=== PATIENT | female | born 1945 | race Caucasian/White ===

== ENCOUNTER → 2019-11-07 07:56 | Outpatient (CLI) | payer MEDICARE, SELFPAY ==
--- NOTE | ~2019-11-07 | US_ITS ---
EXAMINATION: US abdomen complete EXAM DATE: 11/07/2019 08:32 INDICATION: Abdominal aortic aneurysm without rupture. TECHNIQUE: Multiple grayscale and Doppler images of the complete abdomen were obtained (by a technolo balta who performed the scan) and subsequently reviewed. There is no prior study for comparison. FINDINGS: The mid to distal aspect of the abdominal aorta measures 3.7 by 3.7 cm in diameter, decreases in eleno maksim to 2.3 cm before the bifurcation. Visualized portion IVC is patent. The pancreatic head and sravan dy are normal in appearance. The pancreatic tail is not visualized. The liver has normal echogenicity and contour. There are no focal liver lesions identified. There is no evidence of intrahepatic biliary duct dilation. Portal venous flow was seen in the hepatopedal , normal direction and has normal Doppler waveform. Common bile duct measures 9 mm, which is mildly dilated but common finding post cholecystectomy. The gallbladder fossa is unremarkable. Right kidney: There is normal contour and echogenicity. It measures 9.2 x 4.2 x 4.9 centimeters. Th ere is a 1 cm cyst. There is no hydronephrosis. Left kidney: There is normal contour and echogenicity. It measures 9.2 x 4.0 x 4.2 centimeters. The re is a 1 cm cyst. There is no hydronephrosis. Scattered splenic granulomas. Spleen is normal in size at 7.9 cm. IMPRESSION: 1. Mid to distal abdominal aortic 3.7 cm aneurysm. Reviewed, dictated and finalized at location A.
== END ==
PROVIDERS: PCP Physician Assistant; Visit Provider Physician Assistant
DX: I71.4 Abdominal aortic aneurysm, without rupture (principal)
CPT/HCPCS: 76700

== ENCOUNTER 2020-01-29 07:57 | Outpatient (CLI) | payer MEDICARE, BC, SELFPAY ==
--- NOTE | ~2020-01-29 | XR_ITS ---
EXAMINATION: XR small bowel follow through DATE: 01/29/2020 09:26 INDICATION: Inflammatory bowel disease with excessive diarrhea TECHNIQUE: Hand Nailer radiograph(s) of the abdomen was/were obtained. Oral contrast was administered, and sequential radiographs of the abdomen were obtained until oral contrast was noted to be in the proxi mal colon. Spot fluoroscopic images of the small bowel were obtained. Fluoroscopy exposure time was 0 .3 minutes. A total of 6 fluoroscopic images and 5 overhead radiographs were obtained. COMPARISON: 10/09/[address] dated 10/07/2018 FINDINGS: Small bowel anastomotic suture line evident on prior CT is seen in the right pelvis on the case fitter radi ographs. Transit time from the stomach to proximal colon was approximately 30 minutes. There is evangelista l caliber and mucosal fold pattern throughout the small bowel. Terminal ileum is normal. The contras t opacified portion of the ascending colon appears normal. No tethering or abnormal mass effect obser elder upon the small bowel with real-time fluoroscopy. IMPRESSION: 1. Anastomotic suture line at the distal ileum consistent with given history of prior partial small b owel resection. Otherwise normal study with no obstruction and normal small bowel mucosal pattern. Reviewed, dictated and finalized at location A. IMPRESSION: 1. Anastomotic suture line at the distal ileum consistent with given history of prior partial small bowel resection. Otherwise normal study with no obstructio n and normal small bowel mucosal pattern.
== END 2020-01-29 07:58 | disposition home or self-care (01) ==
LOC: ANHIMG 08:02
PROVIDERS: PCP Physician Assistant; Visit Provider Internal Medicine Gastroenterology
DX: K52.3 Indeterminate colitis (principal)
CPT/HCPCS: 74250

== ENCOUNTER 2020-02-29 12:26 | Outpatient (CLI) | payer MEDICARE, BC, SELFPAY ==
--- NOTE | ~2020-02-29 | XR_ITS ---
EXAMINATION: XR chest 2V DATE: 02/29/2020 12:43 INDICATION: Shortness of breath. TECHNIQUE: Frontal and lateral views of the chest were obtained. COMPARISON: Chest single view 04/29/2015, chest CT 03/21/2014, CT abdomen and pelvis 10/07/2018 FINDINGS: The lungs are hyperexpanded with lucencies and chronic reticular opacities, consistent with emphysema. No pleural effusion or pneumothorax. The heart size is normal. Surgical clips in the righ t upper quadrant are likely from cholecystectomy. IMPRESSION: 1. Emphysema. Reviewed, dictated and finalized at location A. 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 Emphysema.
== END 2020-02-29 12:27 | disposition home or self-care (01) ==
LOC: ANHIMG 12:29
PROVIDERS: PCP Physician Assistant; Visit Provider Physician Assistant
DX: R06.02 Shortness of breath (principal); J43.9 Emphysema, unspecified
CPT/HCPCS: 71046

== ENCOUNTER 2020-07-26 05:00 | Emergency (ER) | payer MEDICARE, BC, SELFPAY ==
--- NOTE | ~2020-07-26 | CT_ITS ---
EXAMINATION: CT chest abdomen pelvis wo con DATE: 07/26/2020 06:11 INDICATION: Chest and back pain post fall TECHNIQUE: Computed tomography (CT) of the chest, abdomen, and pelvis was performed without intraveno us contrast. Automated exposure control and iterative reconstruction technique were employed. The dos e-length product was 547.21 mGy-cm. COMPARISON: CT abdomen and pelvis dated 10/07/2018 FINDINGS: CHEST CT: Mild to moderate emphysema. 6 mm right middle lobe nodule along a band of linear discoid atelectasis/ scarring. Calcified right lower lobe nodule consistent with old granulomatous disease. No pneumonia, pulmonary edema, pleural effusion or pneumothorax. Heart size is normal. Atherosclerotic coronary art araceli calcifications. Thoracic aorta is normal in caliber with additional atherosclerotic calcification s. No pathologically enlarged thoracic lymphadenopathy. Suggestion of prior bilateral mastectomies wi th chronic the 8.6 x 3.3 x 8.3 cm loculated subpleural fluid collection which could represent a breas t implant or seroma. No pathologically enlarged thoracic lymphadenopathy. Recent-appearing T8 inferio r endplate compression fracture with 20% central vertebral body height loss. Chronic mild anterior we dging with 20% anterior vertebral body height loss at T11 and T12. ABDOMEN/PELVIS CT: Cholecystectomy clips at the gallbladder fossa. Liver, pancreas and bilateral adrenal glands are norm al. Numerous splenic calcific lesions consistent with old granulomatous disease. Small region of arianne ical scarring at the upper pole the left kidney likely sequela of prior infection or infarction. Bila teral renal cysts measuring up to 1.3 cm the upper pole of the left kidney and 1.0 cm at the lower po le of the right kidney. There is moderate colonic diverticulosis with a sigmoid predominance. There is no adjacent inflammatory change to suggest diverticulitis. Anastomotic suture line at the distal i leum. No bowel obstruction.. The appendix is not visualized. No pericecal inflammatory change to sugg est acute appendicitis. Bladder is normal. The uterus is not identified and has likely been surgicall y resected. Bilateral adnexa are unremarkable. No free intraperitoneal gas or fluid. No pathologicall y enlarged abdominal or pelvic lymphadenopathy. There is calcified atherosclerosis of the aorta and m any of the other arteries. 3.8 cm diameter fused from infrarenal abdominal aortic aneurysm. IMPRESSION: 1. Acute appearing T8 compression fracture with 20% central vertebral body height loss. 2. No acute intrathoracic, abdominal or pelvic process. 3. 3.8 cm fusiform infrarenal abdominal aortic aneurysm. Reviewed, dictated and finalized at location A. IMPRESSION: 1. Acute appearing T8 compression fracture with 20% central vertebral body heig ht loss. 2. No acute intrathoracic, abdominal or pelvic process. 3. 3.8 cm fusiform infrarenal abdominal aortic aneurysm.
[2020-07-26 05:14] VITALS: BP 124/61; PULSE 66; RESP 18; TEMP 36.7; O2SAT 96
--- NOTE | 2020-07-26 05:33 | ED.GENADULT ---
HPI - General Adult General Chief complaint: Fall Stated complaint: fall/ back pain Time Seen by Provider: 07/26/20 05:27 History of Present Illness HPI narrative: Patient is a 74-year-old female presents to emergency department chief complaint of back pain. Patient reports at 11:00 yesterday she was walking into the house fell and struck her back against a wall. Patient states that since then she has been trying to use lidocaine and other topical medications as well as taken a hydrocodone without relief. Patient states the pain is worse with deep inspiration and reports that whenever she lays flat on her back it hurts. Related Data Home Medications Medication Instructions Recorded Confirmed amiodarone 100 mg tablet 100 mg PO DAILY 10/15/19 07/25/20 diltiazem HCl 120 mg 120 mg PO DAILY 10/15/19 07/25/20 capsule,extended release 24 hr esomeprazole magnesium 20 mg 20 mg PO DAILY 10/15/19 07/25/20 capsule,delayed release furosemide 40 mg tablet 40 mg PO QAM 10/15/19 07/25/20 ipratropium 20 mcg-albuterol 100 1 puff INHALATION QID 10/15/19 07/25/20 mcg/actuation mist for inhalation potassium chloride 20 mEq 20 meq PO DAILY 10/15/19 07/25/20 tablet,extended release(part/cryst) pravastatin 40 mg tablet 40 mg PO DAILY 10/15/19 07/25/20 psyllium seed (sugar) oral powder 1 tbsp PO DAILY 10/15/19 07/25/20 warfarin 2.5 mg tablet 2 mg PO 5XW tablet 01/22/20 07/25/20 Allergies Allergy/AdvReac Type Severity Reaction Status Date / Time Penicillins AdvReac Intermediate yeast Verified 07/26/20 05:18 infection Review of Systems Review of Systems: Narrative: A 10 system review of systems was completed on the patient and is negative except for what is stated in the HPI. Nursing and ancillary documentation was reviewed. [facility] Family History Family History Father Family history of emphysema Patient's father is Mother Patient's mother is Family history of chronic obstructive pulmonary disease Social History Social History Smoking packs per day: 0.5 Smoking cigarettes per day: 10.0 Years smoked: 40 Smoking pack-years: 20.00 Smoking status: Current every day smoker Tobacco type: cigarettes Second hand tobacco smoke exposure: No Alcohol intake: never Substance use: never Exam Narrative: Exam Narrative: GENERAL: Well-appearing, well-nourished, and in no acute distress. HEAD: Normocephalic, atraumatic. EYES: PERRLA and EOMI. ENT: Nares clear, no rhinorrhea or epistaxis. Mucous membranes moist. NECK: Supple. CHEST: Clear to auscultation. No respiratory distress. There is tenderness to palpation to the paraspinous muscles along the thoracic spine and lumbar spine HEART: Regular rate and rhythm. No murmur heard. Normal peripheral pulses. ABDOMEN: Soft, nontender, nondistended, normal active bowel sounds. EXTREMITIES: Normal range of motion. No edema. SKIN: Warm, dry, no rash. NEURO: No focal deficits. Alert and oriented x3. PSYCH: Normal mood and affect. Course Course Emergency Course: CT scan showed no evidence of acute intrathoracic or intra-abdominal trauma. Vital Signs Vital signs: Vital Signs Temperature 36.7 C 07/26/20 05:14 Pulse Rate 66 07/26/20 05:14 Respiratory Rate 18 07/26/20 05:14 Blood Pressure 124/61 07/26/20 05:14 Pulse Oximetry 96 07/26/20 05:14 Temperature 36.7 C 07/26/20 05:14 Pulse Rate 59 L 07/26/20 06:42 Respiratory Rate 18 07/26/20 06:42 Blood Pressure 106/65 07/26/20 06:42 Pulse Oximetry 95 07/26/20 06:42 Medical Decision Making Vital Signs Vital Signs: Vital Signs Temperature 36.7 C 07/26/20 05:14 Pulse Rate 66 07/26/20 05:14 Respiratory Rate 18 07/26/20 05:14 Blood Pressure 124/61 07/26/20 05:14 Pulse Oximetry 96 07/26/20 05:14 Temperature 36.7 C 07/26
[2020-07-26] MEDS: HYDROmorphone HCL INJ (*CRX) 1 MG/ML SYR IM (05:36)
--- NOTE | 2020-07-26 06:03 | PC.NURSE ---
Patient taken to CT.
[2020-07-26 06:42] VITALS: BP 106/65; PULSE 59; RESP 18; O2SAT 95
--- NOTE | 2020-07-26 14:25 | PC.NURSE ---
CALLED PT @[phone],NO ANSWER LEFT MESSAGE TO RETURN CALL TO ED REGARDING CT OVER-READ.
--- NOTE | 2020-07-26 16:11 | PC.NURSE ---
CONTACTED PT @[phone] INFORMED OF OVER READ ON CT AND TOLD TO FOLLOW UP WITH DR MONTEIRO @[phone] FOR FURTHER EVALUATION AND TREATMENT.
== END 2020-07-26 07:34 | disposition home or self-care (01) ==
PROVIDERS: Emergency Provider Emergency Medicine; PCP Physician Assistant
DX: S20.229A Contusion of unspecified back wall of thorax, initial encounter (principal); Z79.01 Long term (current) use of anticoagulants; F17.210 Nicotine dependence, cigarettes, uncomplicated; W01.198A Fall on same level from slipping, tripping and stumbling with subsequent striking against other object, initial encounter
CPT/HCPCS: 71250; 74176; 96372; 99284; J1170

== ENCOUNTER 2020-08-07 09:53 | Emergency (ER) | payer MEDICARE, BC, SELFPAY ==
--- NOTE | ~2020-08-07 | XR_ITS ---
EXAMINATION: XR ribs BI 3V w CXR 2V EXAM DATE: 08/07/2020 14:00 INDICATION: T8 acute on subacute compression fracture. TECHNIQUE: Frontal projection of the upper left ribs, frontal projection of the lower left ribs, obli que projection of the left ribs. Frontal projection of the upper right ribs, frontal projection of t he lower right ribs, oblique projection of the right ribs, frontal and lateral chest x-ray(s) for int erpretation. Correlation is made to chest x-ray 01/04/2012. FINDINGS: There is aortic arteriosclerosis. No confluent consolidation, pneumothorax or pleural effus ion suspected. There are no displaced acute rib fractures identified. There are cholecystectomy clip s. Mild to moderate compression fracture at T8. IMPRESSION: No acute displaced rib fractures bilaterally. Mild to moderate T8 compression fracture. Reviewed, dictated and finalized at location A.
--- NOTE | ~2020-08-07 | CT_ITS ---
EXAMINATION: CT thoracic lumbar wo con EXAM DATE: 08/07/2020 13:32 INDICATION: Back pain, fall today, recent compression fracture. TECHNIQUE: Spiral CT thoracolumbar spine was performed without contrast. Axial, coronal and sagittal images of the thoracic spine were reviewed. Axial, coronal and sagittal images of the lumbar spine we re reviewed. The dose-length product (DLP) for this examination was 1149.62 mGy-cm. The exposure was tailored according to patient size (auto mA exposure control), and iterative reconstruction (ASIR) w as used as additional dose reduction technique. Correlation is made to CT chest abdomen pelvis . FINDINGS: THORACIC SPINE: No posterior rib fractures. There is is a T8 compression fracture at the inferior end plate with mild to moderate loss of this vertebral body height, slight progression in loss of height compared to prior study. No additional acute thoracic findings. There is mild to moderate thoracic di sc disease. No appreciable central canal or significant neural foraminal stenosis. LUMBAR SPINE: There is no evidence of acute lumbar fracture. There is no disc space widening or tr aumatic vertebral body subluxation suspected. Advanced facet arthropathy at L4-5 and L5-S1. Sacroil iac joints intact. There is 3 mm degenerative anterolisthesis L4 on L5 and 3 mm retrolisthesis L2 on L3 with mild to moderate loss of these disc height, mild disc disease at the other levels. Mild to mo derate neural foraminal stenosis at multiple lumbar levels. Chronic mild compression superior endplat e of L1. There is a 4.3 cm mid abdominal aortic aneurysm. A detailed level by level evaluation of spo ndylosis can be added as addendum if requested. IMPRESSION: 1. T8 acute refracture, mild progression in height loss compared to 07/26. 2. No lumbar acute findings. 3. Spondylosis. Reviewed, dictated and finalized at location A.
[2020-08-07 10:22] VITALS: BP 92/54; PULSE 95; RESP 16; TEMP 36.3; O2SAT 100
--- NOTE | 2020-08-07 11:28 | PC.NURSE ---
Pt arrives accompanied by daughter, s/p lumbar compression fx, followed at [facility] and placed in back brace, family has been helping put brace on pt but lower back is swollen, and I am not getting better . Has not worn brace since yesterday afternoon. Pt on pain control oxycodone and hydrocodone alternating. Pt also endorses 'I fell again this am, my shoulder fell into a stool, but I have no pain .
--- NOTE | 2020-08-07 11:42 | PC.NURSE ---
Pt took oxycodone-acetaminophen rxn @4570 I have to be on a schedule, I interchange [place] and oxycodone . Awaiting ED provider erika
--- NOTE | 2020-08-07 12:28 | ECG_ITS ---
Measurements Intervals Rowan Rate: 101 P: ND: 0 QRS: 38 QRSD: 91 T: 32 QT: 356 QTc: 462 Interpretive Statements ATRIAL FIBRILLATION WITH RAPID VENTRICULAR RESPONSE CANNOT RULE OUT SEPTAL INFARCT, AGE INDETERMINATE BORDERLINE ST-T WAVE ABNORMALITY- DIFFUSE LEADS BASELINE ARTIFACT- I, II, AVR, AVL, AVF ABNORMAL ECG Electronically Signed On 08-07-2020 15:05:18 CDT by Osvaldo Welch D.O.
--- NOTE | 2020-08-07 12:32 | ED.BACK ---
HPI - Back Pain/Injury General Chief Complaint: Back Pain/Injury <Anabela Escamilla PA-C - Last Filed: 08/07/20 16:17> Stated Complaint: compression fracture-back pain <Anabela Escamilla PA-C - Last Filed: 08/07/20 16:17> Time Seen by Provider: 08/07/20 11:53 <Anabela Escamilla PA-C - Last Filed: 08/07/20 16:17> Source: patient <PADMINI Chao Last Filed: 08/07/20 16:17> Mode of arrival: ambulatory <PADMINI Chao Last Filed: 08/07/20 16:17> Limitations: no limitations <Anabela Escamilla PA-C - Last Filed: 08/07/20 16:17> History of Present Illness HPI Narrative: This is a 74 year old female that presents to the ER for back pain present over the last 2 weeks. Reports the pain is in her mid back and radiates around her chest. Worse with movement and relieved with rest. Reports she had a fall and [facility] Reports she has a compression fracture of T8. Reports she has been taking her pain medication with little relief. She presents today for continued pain. She is supposed to be wearing a brace, but has not been because it hurts. She also reports a ground level fall today. Reports she lost her balance and fell onto her bottom. Denies hitting her head, loss of consciousness, bowel/bladder incontinence, weakness, or numbness. <PADMINI Chao Last Filed: 08/07/20 16:17> Related Data Home Medications: Home Medications Medication Instructions Recorded Confirmed psyllium seed (sugar) oral powder 1 tbsp PO DAILY 10/15/19 07/25/20 warfarin 2.5 mg tablet 2 mg PO 5XW tablet 01/22/20 07/25/20 alprazolam 08/07/20 amiodarone [Pacerone] 08/07/20 apixaban [Eliquis] mg 08/07/20 colestipol PO 08/07/20 diltiazem HCl PO 08/07/20 furosemide 08/07/20 oxycodone-acetaminophen 08/07/20 pravastatin 08/07/20 ramipril mg 08/07/20 triamcinolone acetonide applic TOPICAL 08/07/20 <Anabela Escamilla PA-C - Last Filed: 08/07/20 16:17> Allergies/Adverse Reactions: Allergies Allergy/AdvReac Type Severity Reaction Status Date / Time Penicillins AdvReac Intermediate yeast Verified 08/07/20 11:28 infection <Anabela Escamilla PA-C - Last Filed: 08/07/20 16:17> Review of Systems Review of Systems: Narrative: CONSTITUTIONAL: Denies fever CARDIOVASCULAR: Reports chest pain RESPIRATORY: Denies cough or dyspnea. GASTROINTESTINAL: Denies abdominal pain, nausea, vomiting GENITOURINARY: Denies dysuria or hematuria. SKIN: Denies rash MUSCULOSKELETAL: Reports back pain, joint pain, and myalgia. NEUROLOGIC: Denies numbness, or weakness. <Anabela Escamilla PA-C - Last Filed: 08/07/20 16:17> All systems reviewed & are unremarkable except as noted in HPI and below <Anabela Escamilla PA-C - Last Filed: 08/07/20 16:17> [facility] Past Medical History Medical History: Medical History (Updated 08/07/20 @ 16:12 by Anabela Escamilla PA-C) Anxiety Compression fracture of body of thoracic vertebra History of hyperlipidemia History of hypertension <Anabela Escamilla PA-C - Last Filed: 08/07/20 16:17> Family History Family History: Family History Father Family history of emphysema Patient's father is Mother Patient's mother is Family history of chronic obstructive pulmonary disease <Anabela Escamilla PA-C - Last Filed: 08/07/20 16:17> Social History Social History: Social History Smoking packs per day: 0.5 Smoking cigarettes per day: 10.0 Years smoked: 40 Smoking pack-years: 20.00 Smoking status: Current every day smoker Tobacco type: cigarettes Second hand tobacco smoke exposure: No Alcohol intake: never Substance use: never <Anabela Escamilla PA-C - Last Filed: 08/07/20 16:17> Exam Narrative: Exam Narrative: GENERAL: Well-appearing, well-nourished, an
[2020-08-07 12:50] LABS: Basophils Percent Auto 0.4 % (0.2-1.2); Eosinophils Absolute Auto 0.1 K/mm3 (0-0.3); Eosinophils Percent Auto 0.9 % (0-4.4); Hematocrit 43.2 % (37.0-47.0); Hemoglobin 13.6 g/dL (12.0-15.0); Immature Granulocyte Absolute 0.03 K/mm3 (0.00-0.031); Immature Granulocyte Percent A 0.3 % (0-0.5); Lymphocytes Absolute Auto 2.06 K/mm3 (0.9-3.2); Mean Corpuscular HGB Conc 31.5 g/dl (32-36); Mean Corpuscular Hemoglobin 29.6 pg (26-34); Mean Corpuscular Volume 94.1 fl (80-100); Mean Platelet Volume 8.8 fl (7.4-10.4); Monocytes Absolute Auto 0.7 K/mm3 (0.1-0.6); Monocytes Percent Auto 7.6 % (2.6-8.5); Neutrophils Absolute Auto 6.8 K/mm3 (1.3-6.7); Neutrophils Percent Auto 69.8 % (45.5-73.1); Platelet Count Result 266 k/mm3 (150-375); Red Blood Count 4.59 M/mm3 (4.2-5.4); Red Cell Distribution Width 16.1 % (11.5-14.5); White Blood Count 9.8 K/mm3 (4.5-10.0)
[2020-08-07] MEDS: ONDANSETRON INJ 4 MG/2 ML VIAL IV PUSH (12:54)
[2020-08-07] MEDS: MORPHINE SULFATE (*CRX) 4 MG/ML INJ IV PUSH (12:54)
[2020-08-07 13:00] LABS: Lactic Acid Reflex 0.9 mmol/L (0.7-2.1)
[2020-08-07 13:02] LABS: Alanine Aminotransferase 9 U/L (4-35); Albumin Level 4.6 g/dL (3.5-5.1); Alkaline Phosphatase 106 U/L (38-126); Anion Gap 8 mmol/L (8-16); Aspartate Amino Transferase 26 U/L (14-36); Bilirubin,Total 0.5 mg/dL (0.2-1.3); Blood Urea Nitrogen 19 mg/dL (7-17); Calcium 9.3 mg/dL (8.4-10.2); Carbon Dioxide 26 mmol/L (22-30); Chloride 105 mmol/L (98-107); Estimated CRCL calculation 35 ml/min; Estimated Glomerular Filt Rate 48; Glucose 96 mg/dL (65-105); Potassium 4.5 mmol/L (3.4-5.0); Sodium 139 mmol/L (137-145)
[2020-08-07 13:04] LABS: INR 1.3; Prothrombin Time 16.6 Seconds (11.1-14.7)
[2020-08-07 13:06] LABS: Partial Thromboplastin Time 44.6 SECONDS (22.3-36.8)
[2020-08-07 13:08] LABS: CRP 0.9 mg/dL (<1.0)
[2020-08-07 13:14] LABS: Erythrocyte Sedimentation Rate 25 mm/hr (0-20)
[2020-08-07 13:17] LABS: NT Pro B Type Natriuretic Pept 1270 pg/mL (5-100); Troponin I 0.028 ng/mL (0.000-0.034)
--- NOTE | 2020-08-07 14:10 | PC.NURSE ---
Pt used halle steady to use BR, able to ambulate back into cart, reports difficulty getting comfortable. Rates back pain 7/10, denies BLE numbness/tingling
[2020-08-07 14:53] LABS: Add Urine Microscopic? YES; Appearance Urine Cloudy (Clear); Bacteria Urine Trace /hpf; Bilirubin Urine Negative (Negative); Blood Urine Negative (Negative); Color Urine Yellow (Yellow); Glucose Urine UA Negative (Negative); Ketones Urine Negative (Negative); Leukocyte Esterase Ur Negative LEU/UL (Negative); Mucus Urine Moderate /lpf; Nitrate Urine Negative (Negative); Protein Urine Negative (Negative); RBC Urine 0-2 /hpf (0-2); Specific Grav Ur 1.013 (1.001-1.035); Squamous Epithelial Cell Urine Moderate /hpf (Few); Urobilinogen Urine Negative mg/dL (<2.0); WBC Urine 0-3 /hpf
== END 2020-08-07 16:45 | disposition home or self-care (01) ==
PROVIDERS: Physician Assistant; Emergency Provider General Practice; PCP Physician Assistant
DX: S22.060A Wedge compression fracture of T7-T8 vertebra, initial encounter for closed fracture (principal); F41.9 Anxiety disorder, unspecified; E78.5 Hyperlipidemia, unspecified; I10 Essential (primary) hypertension; Z79.01 Long term (current) use of anticoagulants; F17.210 Nicotine dependence, cigarettes, uncomplicated; I48.91 Unspecified atrial fibrillation; R94.31 Abnormal electrocardiogram [ECG] [EKG]; M47.816 Spondylosis without myelopathy or radiculopathy, lumbar region; W18.39XA Other fall on same level, initial encounter
CPT/HCPCS: 36415; 71046; 71110; 72128; 72131; 80053; 81001; 83605; 83880; 84484; 85025; 85610; 85652; 85730; 86140; 93005; 96374; 96375; 99284; J0131; J2270; J2405

== ENCOUNTER 2020-08-14 09:26 | Outpatient (CLI) | payer MEDICARE, SELFPAY ==
--- NOTE | ~2020-08-14 | MR_ITS ---
EXAMINATION: MR thoracic spine wo con EXAM DATE: 08/14/2020 10:42 INDICATION: Subacute T8 compression fracture. TECHNIQUE: Multi-sequential, multiplanar MR images of the thoracic spine were obtained without contra st. Sagittal T1, T2, T2 fat saturation, axial T2 weighted images reviewed. Correlation is made to CT thoracolumbar spine 08/07/2020. FINDINGS: There is mild to moderate loss of the T8 vertebral body height at the inferior endplate, mi ld loss of its height posteriorly. Involvement of middle column (posterior vertebral body cortex) payton es this a burst fracture, however there is no particular widening or retropulsion. Edema is consisten t with acute to subacute fracture. Amount of height loss is unchanged compared to CT 08/07. Vertebral body heights are otherwise well-maintained, bone marrow normal in signal. The spinal cord s ignal intensity and intrinsic morphology is normal. Mild thoracic disc disease and facet arthropathy. At T8-9 there is mild to moderate right, mild left neural foraminal stenosis. Mild right neural fora parker stenosis at T10-11. Thoracic central canal and neural foramen otherwise patent. IMPRESSION: 1. Mild to moderate T8 anterior wedging unchanged, acute to subacute burst fracture. No retropulsion or pedicular widening. 2. Mild thoracic spondylosis. Reviewed, dictated and finalized at location B. IMPRESSION: 1. Mild to moderate T8 anterior wedging unchanged, acute to subacute burst frac ture. No retropulsion or pedicular widening. 2. Mild thoracic spondylosis.
== END 2020-08-14 09:27 | disposition home or self-care (01) ==
PROVIDERS: PCP Physician Assistant
DX: S22.060A Wedge compression fracture of T7-T8 vertebra, initial encounter for closed fracture (principal); X58.XXXA Exposure to other specified factors, initial encounter; M47.894 Other spondylosis, thoracic region
CPT/HCPCS: 72146

== ENCOUNTER 2021-01-08 08:38 | Outpatient (CLI) | payer MEDICARE, SELFPAY ==
[2021-01-08 09:09] LABS: Basophils Absolute Auto 0.1 K/mm3 (0.0-0.1); Basophils Percent Auto 0.7 % (0.2-1.2); Eosinophils Absolute Auto 0.1 K/mm3 (0-0.3); Eosinophils Percent Auto 1.4 % (0-4.4); Hematocrit 40.5 % (37.0-47.0); Hemoglobin 12.7 g/dL (12.0-15.0); Immature Granulocyte Absolute 0.02 K/mm3 (0.00-0.031); Immature Granulocyte Percent A 0.3 % (0-0.5); Lymphocytes Absolute Auto 1.62 K/mm3 (0.9-3.2); Lymphocytes Percent Auto 21.3 % (18.3-44.2); Mean Corpuscular HGB Conc 31.4 g/dl (32-36); Mean Corpuscular Hemoglobin 28.3 pg (26-34); Mean Corpuscular Volume 90.2 fl (80-100); Mean Platelet Volume 8.6 fl (7.4-10.4); Monocytes Absolute Auto 0.4 K/mm3 (0.1-0.6); Monocytes Percent Auto 5.8 % (2.6-8.5); Neutrophils Absolute Auto 5.4 K/mm3 (1.3-6.7); Neutrophils Percent Auto 70.5 % (45.5-73.1); Platelet Count Result 207 k/mm3 (150-375); Red Blood Count 4.49 M/mm3 (4.2-5.4); Red Cell Distribution Width 16.4 % (11.5-14.5); White Blood Count 7.6 K/mm3 (4.5-10.0)
[2021-01-08 09:27] LABS: Anion Gap 11 mmol/L (8-16); Blood Urea Nitrogen 20 mg/dL (7-17); Calcium 9.3 mg/dL (8.4-10.2); Carbon Dioxide 24 mmol/L (22-30); Chloride 104 mmol/L (98-107); Estimated Glomerular Filt Rate 48; Glucose 110 mg/dL (65-110); Potassium 4.1 mmol/L (3.4-5.0); Sodium 139 mmol/L (137-145)
== END 2021-01-08 08:39 | disposition home or self-care (01) ==
LOC: ANHLAB 08:47
PROVIDERS: PCP Physician Assistant; Visit Provider Internal Medicine Cardiovascular Disease
DX: Z01.812 Encounter for preprocedural laboratory examination (principal); Z51.81 Encounter for therapeutic drug level monitoring; Z79.899 Other long term (current) drug therapy; R07.89 Other chest pain
CPT/HCPCS: 36415; 80048; 85025

== ENCOUNTER 2021-07-17 08:21 | Outpatient (CLI) | payer MEDICARE, BC, SELFPAY ==
[2021-07-17 08:10] VITALS: PULSE 76; O2SAT 91
[2021-07-17 08:15] VITALS: PULSE 85; O2SAT 86
[2021-07-17 08:20] VITALS: PULSE 86; O2SAT 88
[2021-07-17 08:25] VITALS: PULSE 84; O2SAT 91
[2021-07-17 08:40] VITALS: PULSE 77; O2SAT 91
--- NOTE | 2021-07-17 08:46 | HOMEO2EVAL ---
Evaluation was performed at [facility] Home Oxygen Evaluation RC: Home Oxygen (O2) Evaluation Start: 07/17/21 08:43 Freq: Status: Active Protocol: RPE Activity Type Activity Date Activity User E-Sign Co-Sign Detail Recorded Client Recorded Date Recorded By Document 07/17/21 08:10 DJO [email or web address] 07/17/21 08:46 DJO Document 07/17/21 08:15 DJO [email or web address] 07/17/21 08:46 DJO Document 07/17/21 08:20 DJO [email or web address] 07/17/21 08:46 DJO Document 07/17/21 08:25 DJO [email or web address] 07/17/21 08:46 DJO Document 07/17/21 08:40 DJO [email or web address] 07/17/21 08:46 DJO 07/17/21 07/17/21 07/17/21 08:10 08:15 08:20 Home O2 Evaluation Test Phase Resting Exercise Exercise Oxygen Delivery Room Air Room Air Nasal Cannula Oxygen Flow Rate (L/min) 1 Pulse Oximetry (90-100 %) 91 86 L 88 L Pulse Rate (60-100 beats/min) 76 85 86 Activity Tolerance Ambulation Distance (feet) Ambulation Distance (meters) Treatment Charges O2 Evaluation - Inpatient 07/17/21 07/17/21 08:25 08:40 Home O2 Evaluation Test Phase Exercise Resting Oxygen Delivery Nasal Cannula Room Air Oxygen Flow Rate (L/min) 2 Pulse Oximetry (90-100 %) 91 91 Pulse Rate (60-100 beats/min) 84 77 Activity Tolerance Good Ambulation Distance (feet) 500 Ambulation Distance (meters) 152.39 Treatment Charges
--- NOTE | 2021-07-17 12:32 | WPDPFTINT ---
PFT Procedure Performed PFT Procedure Performed Spirometry with Pre/Post Bronchodilator Plethysmography (Lung Vol) Diffusing Cap (DLCO) Flow Vol Loop PFT Interpretation This is a pulmonary function test with spirometry, plethysmography and diffusing capacity. The test was performed and results interpreted in accordance with the 2019 and 2005 ATS/ERS Task Force guidelines respectively using the Global Lung Function Initiative-2012 reference equations. Patient demonstrated good effort and cooperation. Reproducibility criteria were met. The quality of the spirometry maneuver was Grade A. Of note the patient had persistent coughing throughout the test. Findings: Spirometry: There is decreased maximal expiratory airflow at all lung volumes with a concave expiratory flow tracing. The contour the inspiratory flow tracing is normal. The FVC is 2.13 L, 81% predicted. The FEV1 is 1.25 L, 62% predicted. The FEV1: FVC ratio is 59%. Plethysmography: The total lung capacity is 5.70 L, 112% predicted. The functional residual capacity is 4.32 L, 148% predicted. The residual volume is 3.04 L, 130% predicted. Diffusing capacity: The diffusing capacity unadjusted for hemoglobin and carboxyhemoglobin is 8.0, 40% predicted. The diffusing capacity adjusted for alveolar volume is 2.26, 54% predicted. Impression: There is a moderate obstructive abnormality. Hyperinflation is present is demonstrated by the increase in functional residual capacity and is consistent with an obstructive abnormality. The diffusing capacity unadjusted for hemoglobin is moderately decreased and normalizes when adjusted for alveolar volume. Impression: There is a moderately severe restrictive ventilatory abnormality. The spirometry is normal without evidence of an obstructive abnormality. The diffusing capacity unadjusted for hemoglobin and carboxyhemoglobin is moderately decreased and remains moderately decreased when adjusted for alveolar volume. There are no prior studies for comparison
== END 2021-07-17 08:22 | disposition home or self-care (01) ==
LOC: ANHPFT 08:23
PROVIDERS: PCP Physician Assistant
DX: R06.00 Dyspnea, unspecified (principal)
CPT/HCPCS: 94375; 94618; 94726; 94729

== ENCOUNTER 2021-08-27 09:45 | Outpatient (RCR) | payer MEDICARE, BC, SELFPAY ==
[2021-05-12 12:15] VITALS: PULSE 111
== END 2021-09-02 10:52 | disposition home or self-care (01) ==
LOC: ANHCPREHAB 09:45
PROVIDERS: PCP Physician Assistant; Visit Provider Internal Medicine Cardiovascular Disease
DX: Z95.5 Presence of coronary angioplasty implant and graft (principal)
CPT/HCPCS: 93798

== ENCOUNTER 2021-12-16 09:24 | Outpatient (CLI) | payer MEDICARE, BC, SELFPAY ==
[2021-12-16 09:30] VITALS: PULSE 94; O2SAT 95
[2021-12-16 09:35] VITALS: PULSE 119; O2SAT 87
[2021-12-16 09:40] VITALS: PULSE 122; O2SAT 88
[2021-12-16 09:45] VITALS: PULSE 120; O2SAT 91
[2021-12-16 09:55] VITALS: PULSE 90; O2SAT 94
--- NOTE | 2021-12-16 10:17 | HOMEO2EVAL ---
Evaluation was performed at [facility] Home Oxygen Evaluation RC: Home Oxygen (O2) Evaluation Start: 12/16/21 10:13 Freq: Status: Active Protocol: RPE Activity Type Activity Date Activity User E-sign Co-sign Detail Recorded Client Recorded Date Recorded By Document 12/16/21 09:30 PK [email or web address] 12/16/21 10:17 PK Document 12/16/21 09:35 PKH [email or web address] 12/16/21 10:17 PK Document 12/16/21 09:40 PK [email or web address] 12/16/21 10:17 PK Document 12/16/21 09:45 PK [email or web address] 12/16/21 10:17 PK Document 12/16/21 09:55 PK [email or web address] 12/16/21 10:17 PK 12/16/21 12/16/21 12/16/21 09:30 09:35 09:40 Home O2 Evaluation Test Phase Resting Exercise Exercise Oxygen Delivery Room Air Room Air Nasal Cannula Oxygen Flow Rate (L/min) 1 Pulse Oximetry (90-100 %) 95 87 L 88 L Pulse Rate (60-100 beats/min) 94 119 H 122 H Ambulation Distance (feet) Ambulation Distance (meters) Treatment Charges O2 Evaluation - Outpatient 12/16/21 12/16/21 09:45 09:55 Home O2 Evaluation Test Phase Exercise Resting Oxygen Delivery Nasal Cannula Room Air Oxygen Flow Rate (L/min) 2 Pulse Oximetry (90-100 %) 91 94 Pulse Rate (60-100 beats/min) 120 H 90 Ambulation Distance (feet) 500 Ambulation Distance (meters) 152.39 Treatment Charges
--- NOTE | 2021-12-16 11:07 | WPDPFTINT ---
PFT Procedure Performed PFT Procedure Performed Spirometry with Pre/Post Bronchodilator Flow Vol Loop PFT Interpretation Spirometry showed diminished expiratory flow rates and a diminished FEV1 to FVC ratio of 61%, indicative of obstructive airway disease. Following administration of a bronchodilator there was significant increase in the FEV1. The flow-volume loop is consistent with obstructive airway disease. Impression: Moderate obstructive airway disease with significant response to bronchodilators on this testing.
== END 2021-12-16 09:25 | disposition home or self-care (01) ==
LOC: ANHPFT 09:26
PROVIDERS: PCP Physician Assistant; Visit Provider Internal Medicine Pulmonary Disease
DX: J44.9 Chronic obstructive pulmonary disease, unspecified (principal); R94.2 Abnormal results of pulmonary function studies
CPT/HCPCS: 94060; 94618

== ENCOUNTER 2022-03-17 09:36 | Outpatient (CLI) | payer MEDICARE, BC, SELFPAY ==
--- NOTE | ~2022-03-17 | US_ITS ---
EXAMINATION: US aorta DATE: 03/17/2022 16:32 ASSISTANT COUNSEL INDICATION: Abdominal aortic aneurysm TECHNIQUE: Grayscale, color Doppler, and pulsed Doppler images of the aorta and common iliac arteries were obtained. COMPARISON: CT dated 07/26/2020. FINDINGS: The proximal aorta measures 2.1 cm greatest sagittal dimension. The mid aorta measures 2.9 cm greates t sagittal dimension. The distal aorta measures 2 cm greatest sagittal dimension. The right common in ternal iliac artery measures 1.2 cm. The left common iliac artery measures 1 cm. IMPRESSION: 1. Fusiform infrarenal abdominal aortic aneurysm measuring 3.9 cm. Reviewed, dictated and finalized at location A. STANT COUNSEL
== END 2022-03-17 09:37 | disposition home or self-care (01) ==
LOC: ANHIMG 09:37
PROVIDERS: PCP Physician Assistant; Visit Provider Physician Assistant
DX: I71.40 Abdominal aortic aneurysm, without rupture, unspecified (principal)
CPT/HCPCS: 76775

== ENCOUNTER 2022-05-04 15:08 | Outpatient (CLI) | payer MEDICARE, BC, SELFPAY ==
[2022-05-04 15:32] LABS: Basophils Absolute Auto 0.1 K/mm3 (0.0-0.1); Basophils Percent Auto 0.6 % (0.2-1.2); Eosinophils Absolute Auto 0.1 K/mm3 (0-0.3); Eosinophils Percent Auto 1.3 % (0-4.4); Hematocrit 38.2 % (37.0-47.0); Hemoglobin 12.1 g/dL (12.0-15.0); Immature Granulocyte Absolute 0.02 K/mm3 (0.00-0.031); Immature Granulocyte Percent A 0.2 % (0-0.5); Lymphocytes Absolute Auto 2.21 K/mm3 (0.9-3.2); Lymphocytes Percent Auto 25.8 % (18.3-44.2); Mean Corpuscular HGB Conc 31.7 g/dl (32-36); Mean Corpuscular Hemoglobin 29.1 pg (26-34); Mean Corpuscular Volume 91.8 fl (80-100); Mean Platelet Volume 8.7 fl (7.4-10.4); Monocytes Absolute Auto 0.6 K/mm3 (0.1-0.6); Monocytes Percent Auto 6.9 % (2.6-8.5); Neutrophils Absolute Auto 5.6 K/mm3 (1.3-6.7); Neutrophils Percent Auto 65.2 % (45.5-73.1); Platelet Count Result 244 k/mm3 (150-375); Red Blood Count 4.16 M/mm3 (4.2-5.4); White Blood Count 8.6 K/mm3 (4.5-10.0)
[2022-05-04 15:46] LABS: Alanine Aminotransferase 23 U/L (6-35); Albumin Level 4.3 g/dL (3.5-5.1); Alkaline Phosphatase 88 U/L (38-126); Anion Gap 8 mmol/L (8-16); Aspartate Amino Transferase 42 U/L (14-36); Bilirubin,Total 0.7 mg/dL (0.2-1.3); Blood Urea Nitrogen 11 mg/dL (7-17); Calcium 8.7 mg/dL (8.4-10.2); Carbon Dioxide 26 mmol/L (22-30); Chloride 106 mmol/L (98-107); Cholesterol 239 mg/dL (0-200); Estimated Glomerular Filt Rate > 60; Glucose 105 mg/dL (65-110); HDL Direct 90 mg/dL; Potassium 4.9 mmol/L (3.4-5.0); Sodium 140 mmol/L (137-145); Triglycerides 174 mg/dL (<150)
[2022-05-04 15:56] LABS: LDL Cholesterol Direct 104 mg/dL
[2022-05-04 16:49] LABS: Folic Acid 6.8 ng/mL (2.76->20)
== END 2022-05-04 15:09 | disposition home or self-care (01) ==
PROVIDERS: PCP Physician Assistant; Visit Provider Physician Assistant
DX: R53.83 Other fatigue (principal); E78.5 Hyperlipidemia, unspecified
CPT/HCPCS: 36415; 80053; 80061; 82607; 82746; 84443; 85025

== ENCOUNTER 2022-07-19 12:49 | Outpatient (CLI) | payer MEDICARE, BC, SELFPAY ==
--- NOTE | ~2022-07-19 | XR_ITS ---
AP and oblique views of the left ribs, and PA chest radiograph Clinical History: Pain Findings: There are minimally displaced fractures at the anterior left ninth and 10th ribs. Lungs are clear, without focal consolidation or pleural effusion. There is probable COPD or mild chronic inter stitial disease. Cardiomediastinal contour is within normal limits. Soft tissues are unremarkable. Impression: Minimally displaced traumatic fractures at the anterior left ninth and 10th ribs. COPD. Reviewed, dictated and finalized at location . Impression: Minimally displaced traumatic fractures at the anterior left ninth and 10th rib s. COPD.
--- NOTE | ~2022-07-19 | XR_ITS ---
EXAM: XR sternum min 2V DATE: 07/19/2022 13:26 HISTORY: Other chest pain;lower sternal pain x 2 days . COMPARISON: X-ray chest and ribs 08/07/2020. FINDINGS: Severely decreased mineralization, which limits sensitivity. Cholecystectomy clips. The st ernum is poorly visualized in the frontal view. No definite fracture or dislocation. No definite lyti c or blastic lesion. Costochondral calcification. Atherosclerotic aortic calcification. Degenerative changes in the spine. Chronic moderate compression fracture at T8. IMPRESSION: No definite acute osseous finding in the sternum noting that evaluation is limited. If cl inical suspicion of chest wall or sternal injury is high, CT of chest without contrast be helpful for further evaluation. Reviewed, dictated and finalized at location K. IMPRESSION: No definite acute osseous finding in the sternum noting that evalua tion is limited. If clinical suspicion of chest wall or sternal injury is high, CT of chest without contrast be helpful for further evaluation.
== END 2022-07-19 12:50 | disposition home or self-care (01) ==
PROVIDERS: PCP Physician Assistant; Visit Provider Physician Assistant
DX: R07.81 Pleurodynia (principal); R07.89 Other chest pain; J44.9 Chronic obstructive pulmonary disease, unspecified
CPT/HCPCS: 71101; 71120

== ENCOUNTER 2022-07-20 11:01 | Outpatient (CLI) | payer MEDICARE, BC, SELFPAY ==
--- NOTE | ~2022-07-20 | CT_ITS ---
EXAMINATION:CT diagnostic chest wo con DATE: 07/20/2022 11:40 INDICATION: Lung nodule. TECHNIQUE: Computed tomography (CT) of the chest was performed without intravenous contrast. Automate d exposure control and iterative reconstruction technique were employed. The dose-length product (DLP ) was 81.59 mGy-cm. COMPARISON: Chest CT 07/26/2020 FINDINGS: There is moderate emphysema. There is a 6 mm nodule in right middle lobe without change. Th ere is a stable 4 mm nodule in lingula. A calcified right lung nodule and calcified right hilar lymph node are consistent with old granulomatous disease. No pleural effusion. The heart size is normal. T here are coronary artery calcifications. No pericardial effusion. There is chronic mild mediastinal l ymphadenopathy, likely reactive. There is a right breast implant. Calcifications in the spleen are co nsistent with old granulomatous disease. There are changes of cholecystectomy. Partially visualized i s an abdominally aortic aneurysm measuring at least 3.2 cm. There is severe thoracic spondylosis. The re is mild chronic height loss of multiple vertebral bodies. IMPRESSION: 1. Stable pulmonary nodules, likely benign. 2. Moderate emphysema. Reviewed, dictated and finalized at location A.
== END 2022-07-20 11:02 | disposition home or self-care (01) ==
LOC: ANHIMG 11:02
PROVIDERS: PCP Physician Assistant; Visit Provider Nurse Practitioner Family
DX: R91.1 Solitary pulmonary nodule (principal); J43.9 Emphysema, unspecified
CPT/HCPCS: 71250

== ENCOUNTER 2023-01-05 11:45 | Outpatient (CLI) | payer MEDICARE, BC, SELFPAY ==
[2023-01-05 12:42] LABS: Anion Gap 4 mmol/L (8-16); Blood Urea Nitrogen 16 mg/dL (7-17); Carbon Dioxide 31 mmol/L (22-30); Chloride 103 mmol/L (98-107); Estimated Glomerular Filt Rate 53; Glucose 103 mg/dL (65-110); Potassium 3.5 mmol/L (3.4-5.0); Sodium 138 mmol/L (137-145)
== END 2023-01-05 11:46 | disposition home or self-care (01) ==
LOC: ANHLAB 11:47
PROVIDERS: PCP Physician Assistant; Visit Provider Nurse Practitioner Family
DX: I48.91 Unspecified atrial fibrillation (principal)
CPT/HCPCS: 36415; 80048

== ENCOUNTER 2023-01-14 13:47 | Outpatient (CLI) | payer MEDICARE, SELFPAY ==
[2023-01-14 15:39] LABS: Alanine Aminotransferase 13 U/L (6-35); Albumin Level 4.3 g/dL (3.5-5.1); Alkaline Phosphatase 68 U/L (38-126); Anion Gap 7 mmol/L (8-16); Aspartate Amino Transferase 25 U/L (14-36); Bilirubin,Total 0.6 mg/dL (0.2-1.3); Blood Urea Nitrogen 17 mg/dL (7-17); Calcium 9.1 mg/dL (8.4-10.2); Carbon Dioxide 31 mmol/L (22-30); Chloride 99 mmol/L (98-107); Cholesterol 211 mg/dL (0-200); Estimated Glomerular Filt Rate 53; Glucose 122 mg/dL (65-110); HDL Direct 82 mg/dL; Potassium 4.2 mmol/L (3.4-5.0); Sodium 137 mmol/L (137-145); Triglycerides 171 mg/dL (<150)
[2023-01-14 15:47] LABS: NT Pro B Type Natriuretic Pept 919 pg/mL (19.9-100)
[2023-01-14 15:51] LABS: LDL Cholesterol Direct 92 mg/dL
== END 2023-01-14 13:48 | disposition home or self-care (01) ==
PROVIDERS: PCP Physician Assistant
DX: R06.09 Other forms of dyspnea (principal); E78.5 Hyperlipidemia, unspecified
CPT/HCPCS: 36415; 80053; 80061; 83880; 84443

== ENCOUNTER 2023-01-24 11:19 | Inpatient (IN) | payer MEDICARE, BC, SELFPAY ==
[2023-01-24] VITALS (17 sets, daily range): BP systolic 116–136; BP diastolic 63–115; PULSE 81–102; RESP 18–30; TEMP 36.3–36.9; O2SAT 91–97; BMI 25.9
--- NOTE | ~2023-01-24 | XR_ITS ---
EXAMINATION: XR chest 2V DATE: 01/24/2023 12:02 INDICATION: Shortness of breath TECHNIQUE: frontal and lateral views of the chest were obtained. COMPARISON: Chest radiograph dated chest CT dated 07/20/2022 FINDINGS: Bilateral lower lung predominant mildly increased interstitial pattern with a few peripheral Colby B -lines at the lateral right lower lung zone consistent with mild pulmonary edema. Opacities at the bi lateral lung bases with blunting at the costophrenic angles and posterior sulci consistent with small bilateral pleural effusions and associated atelectasis. Heart size is normal. Mild to moderate thora cic spondylosis with a couple chronic compression fractures in the lower thoracic spine. IMPRESSION: 1. Mild pulmonary edema with small bilateral pleural effusions. 2. Mild bibasilar atelectasis versus less likely pneumonia. Reviewed, dictated and finalized at location A.
--- NOTE | 2023-01-24 11:38 | ECG_ITS ---
Measurements Intervals [place] Rate: 95 P: UT: 165 QRS: 37 QRSD: 110 T: 61 QT: 365 QTc: 461 Interpretive Statements SINUS RHYTHM WITH PREMATURE ATRIAL CONTRACTIONS INCOMPLETE RIGHT BUNDLE BRANCH BLOCK [90+ ms QRS DURATION, TERMINAL R IN V1/V2, 40+ ms S IN I/aVL/V4/V5/V6] CANNOT RULE OUT aNTEROSEPTAL MYOCARDIAL INFARCTION , PROBABLY OLD [40+ ms Q WAVE IN V1- V4] ABNORMAL ECG COMPARED TO ECG 08/07/2020 14:28:37 SINUS RHYTHM IS NOT PRESENT Electronically Signed On 01-24-2023 17:07:01 CDT by Tanmay Biggs M.D.
[2023-01-24 11:49] LABS: Basophils Percent Auto 0.5 % (0.2-1.2); Eosinophils Absolute Auto 0.1 K/mm3 (0-0.3); Eosinophils Percent Auto 1.1 % (0-4.4); Hemoglobin 10.5 g/dL (12.0-15.0); Immature Granulocyte Absolute 0.03 K/mm3 (0.00-0.031); Immature Granulocyte Percent A 0.4 % (0-0.5); Lymphocytes Absolute Auto 1.55 K/mm3 (0.9-3.2); Lymphocytes Percent Auto 18.3 % (18.3-44.2); Mean Corpuscular HGB Conc 29.2 g/dl (32-36); Mean Corpuscular Hemoglobin 27.3 pg (26-34); Mean Corpuscular Volume 93.8 fl (80-100); Mean Platelet Volume 9.1 fl (7.4-10.4); Monocytes Absolute Auto 0.9 K/mm3 (0.1-0.6); Monocytes Percent Auto 10.2 % (2.6-8.5); Neutrophils Absolute Auto 5.9 K/mm3 (1.3-6.7); Neutrophils Percent Auto 69.5 % (45.5-73.1); Platelet Count Result 221 k/mm3 (150-375); Red Blood Count 3.84 M/mm3 (4.2-5.4); White Blood Count 8.5 K/mm3 (4.5-10.0)
[2023-01-24] MEDS: LEVALBUTEROL NEB 1.25 MG/3 ML 2.5 MG INHALATION (12:07)
[2023-01-24] MEDS: IPRATROPIUM BR 0.02% INH SOLN 0.5 MG/2.5 ML VIAL 1.5 MG INHALATION (12:07)
[2023-01-24 12:16] LABS: Alanine Aminotransferase 14 U/L (6-35); Albumin Level 4.2 g/dL (3.5-5.1); Alkaline Phosphatase 67 U/L (38-126); Anion Gap 10 mmol/L (8-16); Aspartate Amino Transferase 28 U/L (14-36); Bilirubin,Total 0.7 mg/dL (0.2-1.3); Blood Urea Nitrogen 17 mg/dL (7-17); Carbon Dioxide 25 mmol/L (22-30); Chloride 103 mmol/L (98-107); Estimated CRCL calculation 35 ml/min; Estimated Glomerular Filt Rate 53; Glucose 96 mg/dL (65-110); Potassium 3.9 mmol/L (3.4-5.0); Sodium 138 mmol/L (137-145)
--- NOTE | 2023-01-24 13:13 | ED.SOB ---
HPI - SOB/Dyspnea General Chief Complaint: Shortness of Breath/Dyspnea Stated Complaint: sob Time Seen by Provider: 01/24/23 11:40 History of Present Illness HPI Narrative: Patient is a 77-year-old female with history of COPD who presents ER with increasing shortness of breath. She has had a cough for the last 2 weeks and initially saw her PCP. She has a prescription for oxygen to wear at night. She is now having to wear it over the last 2 days and is currently wearing 3 L. No chest pain or chest pressure. No lower extremity swelling. No pain with deep breath. No hemoptysis. Patient does take Eliquis and diuretic at home. Related Data Home Medications Medication Instructions Recorded Confirmed amiodarone 100 mg tablet (Pacerone) 100 mg PO DAILY 08/07/20 01/24/23 apixaban 5 mg tablet (Eliquis) 5 mg PO BID 08/07/20 01/24/23 furosemide 40 mg tablet 40 mg PO DAILY 08/07/20 01/24/23 pravastatin 40 mg tablet 40 mg PO HS 08/07/20 01/24/23 diltiazem HCl 240 mg 360 mg PO DAILY 06/15/21 01/24/23 tablet,extended release 24 hr ramipril 5 mg capsule 5 mg PO DAILY 01/24/23 01/24/23 Allergies Allergy/AdvReac Type Severity Reaction Status Date / Time Penicillins AdvReac Intermediate yeast Verified 01/05/23 10:42 infection Review of Systems Review of Systems: All systems reviewed & are unremarkable except as noted in HPI and below Constitutional: Constitutional: Denies chills, Denies fatigue and Denies fever(s) ENT: Denies nasal congestion and Denies sore throat Cardiovascular: Cardiovascular: Denies chest pain and Denies rapid heart rate Respiratory: Respiratory: Reports cough, Reports dyspnea and Reports wheezing Gastrointestinal: Gastrointestinal: Denies abdominal pain, Denies nausea and Denies vomiting [facility] Past Medical History Medical History (Updated 01/24/23 @ 19:45 by Beto Buenrostro MD) Anxiety Chronic kidney disease, stage 3 Compression fracture of body of thoracic vertebra Hyperlipidemia Hypertension Paroxysmal atrial fibrillation Surgical History Surgical History (Updated 01/24/23 @ 18:19 by Lyla Kolb PA-C) History of appendectomy History of cardiac catheterization History of cholecystectomy History of coronary artery stent placement History of hysterectomy History of partial colectomy History of tonsillectomy Family History Family History Father Family history of emphysema Patient's father is Mother Patient's mother is Family history of chronic obstructive pulmonary disease Social History Social History Smoking packs per day: 1 Smoking cigarettes per day: 20.0 Years smoked: 50 Smoking pack-years: 50.00 Smoking status: Current every day smoker Tobacco type: cigarettes Second hand tobacco smoke exposure: No Alcohol intake: never Substance use: never Lack of Transportation: No Lack of Food: Never True Current Housing: I Have Housing Concerned About Future Housing: No Difficulty Paying Gas/Electric Bills: No Difficulty Paying for Meds: No Currently Unemployed: No Education: Bachelor's Degree Difficulty w/ Childcare or Family Care: No Spiritual care concerns: Yes (Mosque) Exam Narrative: GENERAL: Well-appearing, well-nourished, and in no acute distress. HEAD: Normocephalic, atraumatic. EYES: PERRL and EOMI. ENT: Mucous membranes moist. CHEST: Coarse Rales and wheezing bilaterally. No respiratory distress. HEART: Regular rate and rhythm. Normal peripheral pulses. ABDOMEN: Soft, nontender, nondistended. EXTREMITIES: Normal range of motion. No edema. SKIN: Warm, dry, no rash. NEURO: Alert and oriented x3. PSYCH: Normal mood and affect. Course Vital Signs Vital signs: Vital Signs Pulse Rate 102 H 01/24/23 11:29 Respiratory Rate 22 H 01/24/23 11:29 Blood Pressure 116/
[2023-01-24 13:27] LABS: NT Pro B Type Natriuretic Pept 1490 pg/mL (19.9-100)
[2023-01-24] MEDS: methylPREDNISolone SOD SUCC 125 MG VIAL IV PUSH (14:24)
--- NOTE | 2023-01-24 17:57 | ADMGEN ---
This patient, Maria Dolores Boles, was admitted to 2 Medical Room 242-. Patient/family oriented to hospital policies and general routines including ID bracelet, bed and alarms, visiting hours, pain management, procedures, bathroom and other care routines, personal items, smoking policy, room service/diet, and visiting hours. Information on how to activate the Rapid Response Team has been discussed. Patient/Family are encouraged to report perceived risks to care and to ask questions if they do not understand what they are told or what they should do.
--- NOTE | 2023-01-24 18:15 | PM.IMHP ---
H&P: HPI History of Present Illness Date/Time: 01/24/23 16:30 Chief Complaint: Shortness of breath. Narrative: This is a pleasant 77-year-old female with chronic respiratory failure on nighttime oxygen, chronic obstructive pulmonary disease, paroxysmal atrial fibrillation on chronic anticoagulation, coronary artery disease, hypertension, and hyperlipidemia who presented to the emergency department via private vehicle for evaluation of shortness of breath. The patient provides the following history. At baseline she has a daily cough which is occasionally productive of clear sputum. She uses 2.5 L O2 at nighttime and is supposed to the use 2 L with activity however does not sound as though she uses her oxygen much aside from at night. She had previously been on Trelegy but discontinued that due to the development of thrush. She had a routine appointment with her toolroom clerk in the last several weeks and reports feeling okay at that time however they did mention that it sounded as though she was in atrial fibrillation of which she was unaware. Unfortunately over the last couple of weeks she reports increasing dyspnea on lesser and lesser exertion and she now has a cough that is productive of yellowish-colored sputum. She endorses wheezing and states her nebulizers have not helped much. She denies fever, chills, sweats, exertional chest pain, palpitations, nausea, vomiting, and edema. No sick contacts. In the ED: She was afebrile on arrival with stable vital signs. She is currently in a sinus rhythm with occasional ectopy. Chest x-ray showed mild pulmonary edema with small bilateral pleural effusions and mild bibasilar atelectasis versus less likely pneumonia. Labs were significant for a hemoglobin of 10.5 and proBNP 1490. She was given furosemide 40 mg, methylprednisolone 125 mg, and a DuoNeb and she is being admitted in this setting for further treatment at COPD exacerbation and mild CHF. Review of Systems Review of Systems: Twelve systems were reviewed and are negative except for as per HPI. [facility] Past Medical History Medical History (Updated 01/24/23 @ 21:22 by Lyla Kolb PA-C) Anxiety Chronic anticoagulation Chronic kidney disease, stage 3 Compression fracture of body of thoracic vertebra Hyperlipidemia Hypertension Paroxysmal atrial fibrillation Surgical History Surgical History History of appendectomy History of cardiac catheterization History of cholecystectomy History of coronary artery stent placement History of hysterectomy History of partial colectomy History of tonsillectomy Family History Family History Father Family history of emphysema Patient's father is Mother Patient's mother is Family history of chronic obstructive pulmonary disease Social History Social History Smoking packs per day: 1 Smoking cigarettes per day: 20.0 Years smoked: 50 Smoking pack-years: 50.00 Smoking status: Current every day smoker Tobacco type: cigarettes Second hand tobacco smoke exposure: No Alcohol intake: never Substance use: never Lack of Transportation: No Lack of Food: Never True Current Housing: I Have Housing Concerned About Future Housing: No Difficulty Paying Gas/Electric Bills: No Difficulty Paying for Meds: No Currently Unemployed: No Education: Bachelor's Degree Difficulty w/ Childcare or Family Care: No Spiritual care 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
[2023-01-24] MEDS: methylPREDNISolone SOD SUCC 125 MG VIAL 60 MG IV PUSH ×2 (18:51→23:01)
[2023-01-24] MEDS: IPRATROPIUM BR 0.02% INH SOLN 0.5 MG/2.5 ML VIAL INHALATION (20:06)
[2023-01-24] MEDS: LEVALBUTEROL NEB 1.25 MG/3 ML 0.63 MG INHALATION (20:07)
[2023-01-24] MEDS: ALPRAZolam (*CRX) 0.5 MG TABLET 1 MG PO (21:46)
[2023-01-24] MEDS: APIXABAN 5 MG TABLET PO (21:46)
[2023-01-24] MEDS: AZITHROMYCIN 250 MG TABLET 500 MG PO (21:46)
[2023-01-25] VITALS (19 sets, daily range): BP systolic 104–135; BP diastolic 50–69; PULSE 71–114; RESP 16–20; TEMP 36.1–36.7; O2SAT 92–97
[2023-01-25] MEDS: LEVALBUTEROL NEB 1.25 MG/3 ML 0.63 MG INHALATION ×4 (01:41→19:40)
[2023-01-25] MEDS: IPRATROPIUM BR 0.02% INH SOLN 0.5 MG/2.5 ML VIAL INHALATION ×4 (01:42→19:40)
[2023-01-25] MEDS: methylPREDNISolone SOD SUCC 125 MG VIAL 60 MG IV PUSH ×3 (05:13→17:19)
[2023-01-25 05:58] LABS: Hematocrit 32.8 % (37.0-47.0); Hemoglobin 10.1 g/dL (12.0-15.0); Mean Corpuscular HGB Conc 30.8 g/dl (32-36); Mean Corpuscular Hemoglobin 27.3 pg (26-34); Mean Corpuscular Volume 88.6 fl (80-100); Mean Platelet Volume 9.5 fl (7.4-10.4); Platelet Count Result 208 k/mm3 (150-375); Red Cell Distribution Width 18.3 % (11.5-14.5); White Blood Count 4.7 K/mm3 (4.5-10.0)
[2023-01-25 06:13] LABS: Potassium 4.3 mmol/L (3.4-5.0)
[2023-01-25 06:20] LABS: Anion Gap 8 mmol/L (8-16); Blood Urea Nitrogen 17 mg/dL (7-17); Calcium 9.1 mg/dL (8.4-10.2); Carbon Dioxide 28 mmol/L (22-30); Chloride 101 mmol/L (98-107); Estimated CRCL calculation 38 ml/min; Estimated Glomerular Filt Rate 60; Glucose 215 mg/dL (65-110); Magnesium 2.2 mg/dL (1.6-2.3); Sodium 137 mmol/L (137-145)
[2023-01-25 06:46] LABS: Thyroid Stimulating Hormone Reflex 0.735 uIU/mL (0.465-4.68)
[2023-01-25] MEDS: UMECLIDINIUM/VILANTEROL 62.5-25 MCG ELLIPTA 1 PUFF INHALATION (07:10)
[2023-01-25] MEDS: APIXABAN 5 MG TABLET PO ×2 (08:24→21:27)
[2023-01-25] MEDS: AMIODARONE HCL 100 MG TABLET PO (08:24)
[2023-01-25] MEDS: SERTRALINE HCL 50 MG TABLET 200 MG PO (08:25)
[2023-01-25] MEDS: COLESTIPOL HCL 1 GM TABLET 2 GM BY MOUTH (08:25)
[2023-01-25] MEDS: guaiFENesin 12 HR 600 MG TABCR PO ×2 (08:25→21:26)
[2023-01-25] MEDS: ramipriL 5 MG CAPSULE PO (08:25)
[2023-01-25] MEDS: AZITHROMYCIN 250 MG TABLET PO (08:25)
[2023-01-25] MEDS: FUROSEMIDE INJ 40 MG/4 ML VIAL IV PUSH (08:26)
[2023-01-25] MEDS: dilTIAZem HCL CD 180 MG CAP.24HR 360 MG PO (08:26)
[2023-01-25] MEDS: ACETAMINOPHEN 325 MG TABLET 650 MG PO ×2 (09:20→21:33)
--- NOTE | 2023-01-25 10:48 | PM.IMPN ---
Progress Note: A&P Assessment and Plan (1) COPD exacerbation: Code(s): J44.1 - Chronic obstructive pulmonary disease with (acute) exacerbation Status: Acute Assessment and Plan: Clinically she appears to have a COPD exacerbation with increasing shortness of breath, wheezing, and a cough which is now productive of yellow sputum. Chest x-ray showed mild pulmonary edema and mild bibasilar atelectasis versus less likely pneumonia. Continue Solu-Medrol and scheduled bronchodilators. Azithromycin 500 mg x 1 then 250 mg x4 days (2) Pulmonary edema: Code(s): J81.1 - Chronic pulmonary edema Status: Acute Assessment and Plan: Receive 1 dose of IV furosemide in the ED then x1 this morning. Continue to monitor volume status, renal function, electrolytes closely. (3) Paroxysmal atrial fibrillation: Code(s): I48.0 - Paroxysmal atrial fibrillation Status: Chronic Assessment and Plan: Continue Eliquis 5 mg b.i.d. Telemetry monitoring (4) Hypertension: Code(s): I10 - Essential (primary) hypertension Status: Chronic Assessment and Plan: Continue amiodarone and diltiazem (5) Hyperlipidemia: Code(s): E78.5 - Hyperlipidemia, unspecified Status: Chronic Assessment and Plan: continue pravastatin (6) Chronic kidney disease, stage 3: Code(s): N18.30 - Chronic kidney disease, stage 3 unspecified Status: Chronic Assessment and Plan: Kidney function is stable on review of previous labs. Subjective Date/time seen: 01/25/23 10:48 Interval history: Patient states she is feeling extraordinarily better. She is breathing much better and her cough is improved. She does states that she feels a little weak and she is worried that if she tries to walk she could potentially fall. Discussed with her that PT and OT evaluation would be beneficial and she was agreeable. Continue current treatment with steroids and azithromycin for COPD exacerbation. Exam Narrative: GENERAL: Comfortable, no acute distress HENMT: moist mucous membranes EYES: EOM intact b/l NECK: no lymphadenopathy RESPIRATORY: Diffuse expiratory wheezes CARDIO: distant heart sounds although RRR GI: soft, nontender, bowel sounds present SKIN: no rashes EXTREMITIES: no edema, redness or tenderness Objective Data Vital Signs Vital Signs: Vital Signs - 24 hr 01/24/23 11:29 01/24/23 11:39 01/24/23 12:05 Temperature Pulse Rate 102 H 90 Respiratory Rate 22 H 26 H Blood Pressure 116/64 Pulse Oximetry 94 95 Oxygen Delivery Nasal Cannula Nasal Cannula Oxygen Flow Rate 3 3 01/24/23 13:20 01/24/23 11:46 01/24/23 13:43 Temperature Pulse Rate 96 90 90 Respiratory Rate 22 H 29 H 25 H Blood Pressure 126/63 125/97 H Pulse Oximetry 95 95 Oxygen Delivery Oxygen Flow Rate 01/24/23 13:46 01/24/23 14:31 01/24/23 14:46 Temperature Pulse Rate 85 93 88 Respiratory Rate 28 H 22 H 18 Blood Pressure 127/115 H 119/77 123/77 Pulse Oximetry 95 96 91 Oxygen Delivery Oxygen Flow Rate 01/24/23 16:31 01/24/23 17:33 01/24/23 18:57 Temperature Pulse Rate 93 101 H Respiratory Rate 30 H 18 Blood Pressure 125/102 H 123/65 Pulse Oximetry 95 94 Oxygen Delivery Nasal Cannula Oxygen Flow Rate 3 01/24/23 18:00 01/24/23 20:08 01/24/23 20:12 Temperature 97.3 F L Pulse Rate 97 81 81 Respiratory Rate 20 20 20 Blood Pressure 136/73 Pulse Oximetry 94 96 Oxygen Delivery Nasal Cannula Oxygen Flow Rate 2 01/24/23 20:20 01/24/23 21:40 01/25/23 01:42 Temperature 98.4 F Pulse Rate 83 91 80 Respiratory Rate 20 18 20 Blood Pressure 127/70 Pulse Oximetry 97 Oxygen Delivery Oxygen Flow Rate 01/25/23 01:54 01/25/23 01:40 01/25/23 07:14 Temperature 97.3 F L Pulse Rate 77 86 89 Respiratory Rate 20 18 20 Blood Pressure 135/60 Pulse Oximetry 95 Oxygen Delivery
[2023-01-25] MEDS: LORazepam (*CRX) 0.5 MG TABLET PO (15:40)
[2023-01-25] MEDS: ALPRAZolam (*CRX) 0.5 MG TABLET 1 MG PO (21:26)
[2023-01-25] MEDS: PRAVASTATIN SODIUM 20 MG TABLET 40 MG PO (21:27)
[2023-01-26] VITALS (18 sets, daily range): BP systolic 122–133; BP diastolic 60–76; PULSE 70–104; RESP 17–24; TEMP 36.2–36.5; O2SAT 95–100
--- NOTE | 2023-01-26 | ECHO_ITS ---
Patient Info Name: Maria Dolores Boles Age: 77 years : 1945 Gender: Female Ht: 64 in Wt: 145 lbs BSA: 1.73 m2 HR: 86 bpm BP: 130 / 62 mmHg Heart Rhythm: Atrial Fibrillation Technical Quality: Good Exam Date: 01/26/2023 1:54 PM Exam Location: [facility] Pulmonary Patient Status: Inpatient Admit Date: 01/25/2023 Staff Ordering Physician: Anahi Siegel APRN Roll Plugger Machine Operator: Walter Flores RDCS Attending Provider: Azael Barry MD Referring Physician: Robbin BASHIR; Exam Type: CA echo limited Study Info Indications - shortness of breath , a fib Complete two-dimensional, color flow and Doppler transthoracic echocardiogram is performed. Summary 1. Complete two-dimensional, color flow and Doppler transthoracic echocardiogram is performed. 2. Left ventricular chamber dimension is normal. 3. Left ventricular systolic function is normal, estimated at 65-70%. 4. There is mildly increased left ventricular wall thickness. 5. The left ventricular diastolic function is indeterminate. 6. Right ventricular chamber dimension is mildly enlarged. 7. Left atrial chamber dimension is moderately enlarged. 8. There is mild aortic valve stenosis with a peak velocity of 229 cm/s, mean gradient of 13 mmHg, and aortic valve area of 1.7 cm2. 9. There is mild to moderate aortic valve regurgitation. 10. There is mild to moderate tricuspid valve regurgitation. 11. Mild pulmonary hypertension, estimated pulmonary arterial systolic pressure is 44 mmHg. Left Ventricle Left ventricular chamber dimension is normal. Left ventricular systolic function is normal, estimated at 65-70%. There is mildly increased left ventricular wall thickness. The left ventricular diastolic function is indeterminate. Right Ventricle Right ventricular chamber dimension is mildly enlarged. Right ventricular systolic function is normal. Left Atria Left atrial chamber dimension is moderately enlarged. Right Atria Right atrial chamber dimension is mildly enlarged. Aortic Valve The aortic valve is probable trileaflet. There is mild aortic valve stenosis with a peak velocity of 229 cm/s, mean gradient of 13 mmHg, and aortic valve area of 1.7 cm2. There is mild to moderate aortic valve regurgitation. There is moderate aortic valve calcification. Pulmonic Valve The pulmonic valve is not well visualized. Mitral Valve The mitral valve has normal leaflets. There is mild mitral valve regurgitation. Tricuspid Valve The tricuspid valve leaflets are normal. There is mild to moderate tricuspid valve regurgitation. Mild pulmonary hypertension, estimated pulmonary arterial systolic pressure is 44 mmHg. Pericardium/Pleural The pericardium appears normal. There is no pericardial effusion. Inferior Vena Cava Dilated inferior vena cava with >50% collapse upon inspiration consistent with elevated right atrial pressure, 10 mmHg. Aorta The aortic root size at the sinus of Valsalva is normal. Left Ventricular Outflow Tract Name Value Normal LVOT 2D LVOT Diameter 1.8 cm LVOT Doppler LVOT Peak Gradient 2 mmHg LVOT Mean Gradient 1 mmHg LVOT VTI 31 cm LVOT
[2023-01-26] MEDS: methylPREDNISolone SOD SUCC 125 MG VIAL 60 MG IV PUSH ×4 (00:16→17:40)
[2023-01-26] MEDS: IPRATROPIUM BR 0.02% INH SOLN 0.5 MG/2.5 ML VIAL INHALATION ×4 (02:09→20:20)
[2023-01-26] MEDS: LEVALBUTEROL NEB 1.25 MG/3 ML 0.63 MG INHALATION ×4 (02:09→20:20)
[2023-01-26] MEDS: UMECLIDINIUM/VILANTEROL 62.5-25 MCG ELLIPTA 1 PUFF INHALATION (08:14)
[2023-01-26] MEDS: AMIODARONE HCL 100 MG TABLET PO (08:50)
[2023-01-26] MEDS: ramipriL 5 MG CAPSULE PO (08:50)
[2023-01-26] MEDS: FUROSEMIDE 40 MG TABLET PO (08:51)
[2023-01-26] MEDS: dilTIAZem HCL CD 180 MG CAP.24HR 360 MG PO (08:51)
[2023-01-26] MEDS: AZITHROMYCIN 250 MG TABLET PO (08:51)
[2023-01-26] MEDS: COLESTIPOL HCL 1 GM TABLET 2 GM BY MOUTH (08:52)
[2023-01-26] MEDS: APIXABAN 5 MG TABLET PO ×2 (08:52→21:03)
[2023-01-26] MEDS: SERTRALINE HCL 50 MG TABLET 200 MG PO (08:52)
--- NOTE | 2023-01-26 13:37 | P.PNIM_ITS ---
Progress Note: A&P Assessment and Plan (1) COPD exacerbation: Code(s): J44.1 - Chronic obstructive pulmonary disease with (acute) exacerbation Status: Acute Assessment and Plan: 01/25/23: * Clinically she appears to have a COPD exacerbation with increasing shortness of breath, wheezing, and a cough which is now productive of yellow sputum. * Chest x-ray showed mild pulmonary edema and mild bibasilar atelectasis versus less likely pneumonia. * Continue Solu-Medrol and scheduled bronchodilators. * Azithromycin 500 mg x 1 then 250 mg x4 days 01/26/23: * Continue with current treatment plan of Solu-Medrol, bronchodilators, azithromycin * Continue to wean O2 back to baseline of 2 L NC * Continue Ativan as needed for anxiety * Blood glucose 215 this morning (2) Pulmonary edema: Code(s): J81.1 - Chronic pulmonary edema Status: Acute Assessment and Plan: 01/25/2023: * Receive 1 dose of IV furosemide in the ED then x1 this morning. * Continue to monitor volume status, renal function, electrolytes closely. 01/26/23: * Patient started on furosemide 40 mg daily which is her home dose * Continue to monitor volume status (3) Paroxysmal atrial fibrillation: Code(s): I48.0 - Paroxysmal atrial fibrillation Status: Chronic Assessment and Plan: 01/25/2023: * Continue Eliquis 5 mg b.i.d. * Telemetry monitoring 01/26/23: * Continue telemetry monitoring * Obtain echo today due to shortness of breath and her chronic AFib. Patient was supposed to have it outpatient echo the beginning of February. * Continue Eliquis 5 mg b.i.d. * Continue amiodarone 100 mg daily (4) Hypertension: Code(s): I10 - Essential (primary) hypertension Status: Chronic Assessment and Plan: 01/25/23: * Continue amiodarone and diltiazem 01/26/2023: * Continue Cardizem * Blood pressure ranging 126/ 60s to 130/ 60s (5) Hyperlipidemia: Code(s): E78.5 - Hyperlipidemia, unspecified Status: Chronic Assessment and Plan: 01/26/2023: * continue pravastatin (6) Chronic kidney disease, stage 3: Code(s): N18.30 - Chronic kidney disease, stage 3 unspecified Status: Chronic Assessment and Plan: 01/25/2023: * Kidney function is stable on review of previous labs. 01/26/2023: * A BUN 17, creatinine 0.9, eGFR 60, estimated creatinine clearance 38 * Labs remained stable Time Spent With Patient Time with patient: Greater than 35 minutes Subjective Date/time seen: 01/26/23 13:37 Interval history: 01/25/23: Patient states she is feeling extraordinarily better. She is breathing much better and her cough is improved. She does states that she feels a little weak and she is worried that if she tries to walk she could potentially fall. Discussed with her that PT and OT evaluation would be beneficial and she was agreeable. Continue current treatment with steroids and azithromycin for COPD exacerbation. 01/26/23: Patient states she is feeling better today. She states that she has been up with the nurse and the tech today walking the halls. She does complain of tremors and overall jittery feeling which is normal for her whenever she is on steroids. Patient remains on 3 L nasal cannula today. On exam her lungs were notable for expiratory wheeze throughout all lung mccann. Spoke with patient's daughter has some hesitation about patient being discharged early as the patient is still s
--- NOTE | 2023-01-26 13:37 | PM.IMPN ---
Progress Note: A&P Assessment and Plan (1) COPD exacerbation: Code(s): J44.1 - Chronic obstructive pulmonary disease with (acute) exacerbation Status: Acute Assessment and Plan: 01/25/23: Clinically she appears to have a COPD exacerbation with increasing shortness of breath, wheezing, and a cough which is now productive of yellow sputum. Chest x-ray showed mild pulmonary edema and mild bibasilar atelectasis versus less likely pneumonia. Continue Solu-Medrol and scheduled bronchodilators. Azithromycin 500 mg x 1 then 250 mg x4 days 01/26/23: Continue with current treatment plan of Solu-Medrol, bronchodilators, azithromycin Continue to wean O2 back to baseline of 2 L NC Continue Ativan as needed for anxiety Blood glucose 215 this morning (2) Pulmonary edema: Code(s): J81.1 - Chronic pulmonary edema Status: Acute Assessment and Plan: 01/25/2023: Receive 1 dose of IV furosemide in the ED then x1 this morning. Continue to monitor volume status, renal function, electrolytes closely. 01/26/23: Patient started on furosemide 40 mg daily which is her home dose Continue to monitor volume status (3) Paroxysmal atrial fibrillation: Code(s): I48.0 - Paroxysmal atrial fibrillation Status: Chronic Assessment and Plan: 01/25/2023: Continue Eliquis 5 mg b.i.d. Telemetry monitoring 01/26/23: Continue telemetry monitoring Obtain echo today due to shortness of breath and her chronic AFib. Patient was supposed to have it outpatient echo the beginning of February. Continue Eliquis 5 mg b.i.d. Continue amiodarone 100 mg daily (4) Hypertension: Code(s): I10 - Essential (primary) hypertension Status: Chronic Assessment and Plan: 01/25/23: Continue amiodarone and diltiazem 01/26/2023: Continue Cardizem Blood pressure ranging 126/ 60s to 130/ 60s (5) Hyperlipidemia: Code(s): E78.5 - Hyperlipidemia, unspecified Status: Chronic Assessment and Plan: 01/26/2023: continue pravastatin (6) Chronic kidney disease, stage 3: Code(s): N18.30 - Chronic kidney disease, stage 3 unspecified Status: Chronic Assessment and Plan: 01/25/2023: Kidney function is stable on review of previous labs. 01/26/2023: A BUN 17, creatinine 0.9, eGFR 60, estimated creatinine clearance 38 Labs remained stable Time Spent With Patient Time with patient: Greater than 35 minutes Subjective Date/time seen: 01/26/23 13:37 Interval history: 01/25/23: Patient states she is feeling extraordinarily better. She is breathing much better and her cough is improved. She does states that she feels a little weak and she is worried that if she tries to walk she could potentially fall. Discussed with her that PT and OT evaluation would be beneficial and she was agreeable. Continue current treatment with steroids and azithromycin for COPD exacerbation. 01/26/23: Patient states she is feeling better today. She states that she has been up with the nurse and the tech today walking the halls. She does complain of tremors and overall jittery feeling which is normal for her whenever she is on steroids. Patient remains on 3 L nasal cannula today. On exam her lungs were notable for expiratory wheeze throughout all lung mccann. Spoke with patient's daughter has some hesitation about patient being discharged early as the patient is still short of breath. Patient is supposed to have an outpatient echo done at the beginning of February we will go ahead and get this today. She currently is in AFib on the monitor with a rate between 90-100, rate controlled. Patient states that she has been in and out of AFib since 2000, however this is the longest she has actually stated in AFib at any given time has been increasingly short of breath for the past month. Labs today reveal a white blood cell count 10.1, K 4.3, Mag 2.2, hemo
[2023-01-26] MEDS: LORazepam (*CRX) 0.5 MG TABLET PO (14:28)
[2023-01-26] MEDS: PRAVASTATIN SODIUM 20 MG TABLET 40 MG PO (21:02)
[2023-01-26] MEDS: guaiFENesin 12 HR 600 MG TABCR PO (21:03)
[2023-01-26] MEDS: ALPRAZolam (*CRX) 0.5 MG TABLET 1 MG PO (21:03)
[2023-01-26] MEDS: ACETAMINOPHEN 325 MG TABLET 650 MG PO (21:07)
[2023-01-27] VITALS (21 sets, daily range): BP systolic 102–138; BP diastolic 57–72; PULSE 78–117; RESP 16–20; TEMP 36.2–36.8; O2SAT 91–100
[2023-01-27] MEDS: methylPREDNISolone SOD SUCC 125 MG VIAL 60 MG IV PUSH ×4 (00:32→17:20)
[2023-01-27] MEDS: LEVALBUTEROL NEB 1.25 MG/3 ML 0.63 MG INHALATION ×4 (02:51→20:36)
[2023-01-27] MEDS: IPRATROPIUM BR 0.02% INH SOLN 0.5 MG/2.5 ML VIAL INHALATION ×4 (02:51→20:36)
[2023-01-27 05:14] LABS: Hematocrit 31.3 % (37.0-47.0); Hemoglobin 9.4 g/dL (12.0-15.0); Mean Corpuscular Hemoglobin 26.9 pg (26-34); Mean Corpuscular Volume 89.7 fl (80-100); Mean Platelet Volume 8.9 fl (7.4-10.4); Platelet Count Result 234 k/mm3 (150-375); Red Blood Count 3.49 M/mm3 (4.2-5.4); White Blood Count 10.1 K/mm3 (4.5-10.0)
[2023-01-27 05:37] LABS: Anion Gap 4 mmol/L (8-16); Blood Urea Nitrogen 32 mg/dL (7-17); Calcium 9.2 mg/dL (8.4-10.2); Carbon Dioxide 29 mmol/L (22-30); Chloride 101 mmol/L (98-107); Estimated CRCL calculation 32 ml/min; Estimated Glomerular Filt Rate 48; Glucose 222 mg/dL (65-110); Potassium 4.7 mmol/L (3.4-5.0); Sodium 134 mmol/L (137-145)
[2023-01-27] MEDS: UMECLIDINIUM/VILANTEROL 62.5-25 MCG ELLIPTA 1 PUFF INHALATION (08:09)
--- NOTE | 2023-01-27 08:42 | P.PNIM_ITS ---
Progress Note: A&P Assessment and Plan (1) COPD exacerbation: Code(s): J44.1 - Chronic obstructive pulmonary disease with (acute) exacerbation Status: Acute Assessment and Plan: 01/25/23: * Clinically she appears to have a COPD exacerbation with increasing shortness of breath, wheezing, and a cough which is now productive of yellow sputum. * Chest x-ray showed mild pulmonary edema and mild bibasilar atelectasis versus less likely pneumonia. * Continue Solu-Medrol and scheduled bronchodilators. * Azithromycin 500 mg x 1 then 250 mg x4 days 01/26/23: * Continue with current treatment plan of Solu-Medrol, bronchodilators, azithromycin * Continue to wean O2 back to baseline of 2 L NC * Continue Ativan as needed for anxiety * Blood glucose 215 this morning 01/27/2023: * Continue with current treatment plan of Solu-Medrol, bronchodilators, azithromycin * Patient oxygen in to 2 L today, patient oxygen saturation above 92% * Increased Ativan to 1 mg as needed for anxiety due to the use of steroids, will add melatonin 5 mg at bedtime for sleep aid * Blood sugar today 222 on lab (2) Pulmonary edema: Code(s): J81.1 - Chronic pulmonary edema Status: Acute Assessment and Plan: 01/25/2023: * Receive 1 dose of IV furosemide in the ED then x1 this morning. * Continue to monitor volume status, renal function, electrolytes closely. 01/26/23: * Patient started on furosemide 40 mg daily which is her home dose * Continue to monitor volume status 01/27/23: * Lasix 40 mg daily on hold due to increase in BUN were creatinine * Continue to monitor volume status labs (3) Paroxysmal atrial fibrillation: Code(s): I48.0 - Paroxysmal atrial fibrillation Status: Chronic Assessment and Plan: 01/25/2023: * Continue Eliquis 5 mg b.i.d. * Telemetry monitoring 01/26/23: * Continue telemetry monitoring * Obtain echo today due to shortness of breath and her chronic AFib. Patient was supposed to have it outpatient echo the beginning of February. * Continue Eliquis 5 mg b.i.d. * Continue amiodarone 100 mg daily 01/27/23: * No change to current treatment plan * Heart rate in the 80s to 90s rate controlled patient remains in AFib (4) Hypertension: Code(s): I10 - Essential (primary) hypertension Status: Chronic Assessment and Plan: 01/25/23: * Continue amiodarone and diltiazem 01/26/2023: * Continue Cardizem * Blood pressure ranging 126/ 60s to 130/ 60s 01/27/23: * No change to current treatment plan (5) Hyperlipidemia: Code(s): E78.5 - Hyperlipidemia, unspecified Status: Chronic Assessment and Plan: 01/26/2023: * continue pravastatin 01/27/23: * no change to current treatment plan (6) Chronic kidney disease, stage 3: Code(s): N18.30 - Chronic kidney disease, stage 3 unspecified Status: Chronic Assessment and Plan: 01/25/2023: * Kidney function is stable on review of previous labs. 01/26/2023: * A BUN 17, creatinine 0.9, eGFR 60, estimated creatinine clearance 38 * Labs remained stable 01/27/23: * BUN 32, creatinine 1.1 which is up from yesterday. We will hold the dose of Lasix today and re-evaluate in the morning * Continue to trend labs * Krishna catheter in place due to urinary retention yesterday. Patient compla ining of bladder spasms today. Will start Ditropan as needed for pain control T
--- NOTE | 2023-01-27 08:42 | PM.IMPN ---
Progress Note: A&P Assessment and Plan (1) COPD exacerbation: Code(s): J44.1 - Chronic obstructive pulmonary disease with (acute) exacerbation Status: Acute Assessment and Plan: 01/25/23: Clinically she appears to have a COPD exacerbation with increasing shortness of breath, wheezing, and a cough which is now productive of yellow sputum. Chest x-ray showed mild pulmonary edema and mild bibasilar atelectasis versus less likely pneumonia. Continue Solu-Medrol and scheduled bronchodilators. Azithromycin 500 mg x 1 then 250 mg x4 days 01/26/23: Continue with current treatment plan of Solu-Medrol, bronchodilators, azithromycin Continue to wean O2 back to baseline of 2 L NC Continue Ativan as needed for anxiety Blood glucose 215 this morning 01/27/2023: Continue with current treatment plan of Solu-Medrol, bronchodilators, azithromycin Patient oxygen in to 2 L today, patient oxygen saturation above 92% Increased Ativan to 1 mg as needed for anxiety due to the use of steroids, will add melatonin 5 mg at bedtime for sleep aid Blood sugar today 222 on lab (2) Pulmonary edema: Code(s): J81.1 - Chronic pulmonary edema Status: Acute Assessment and Plan: 01/25/2023: Receive 1 dose of IV furosemide in the ED then x1 this morning. Continue to monitor volume status, renal function, electrolytes closely. 01/26/23: Patient started on furosemide 40 mg daily which is her home dose Continue to monitor volume status 01/27/23: Lasix 40 mg daily on hold due to increase in BUN were creatinine Continue to monitor volume status labs (3) Paroxysmal atrial fibrillation: Code(s): I48.0 - Paroxysmal atrial fibrillation Status: Chronic Assessment and Plan: 01/25/2023: Continue Eliquis 5 mg b.i.d. Telemetry monitoring 01/26/23: Continue telemetry monitoring Obtain echo today due to shortness of breath and her chronic AFib. Patient was supposed to have it outpatient echo the beginning of February. Continue Eliquis 5 mg b.i.d. Continue amiodarone 100 mg daily 01/27/23: No change to current treatment plan Heart rate in the 80s to 90s rate controlled patient remains in AFib (4) Hypertension: Code(s): I10 - Essential (primary) hypertension Status: Chronic Assessment and Plan: 01/25/23: Continue amiodarone and diltiazem 01/26/2023: Continue Cardizem Blood pressure ranging 126/ 60s to 130/ 60s 01/27/23: No change to current treatment plan (5) Hyperlipidemia: Code(s): E78.5 - Hyperlipidemia, unspecified Status: Chronic Assessment and Plan: 01/26/2023: continue pravastatin 01/27/23: no change to current treatment plan (6) Chronic kidney disease, stage 3: Code(s): N18.30 - Chronic kidney disease, stage 3 unspecified Status: Chronic Assessment and Plan: 01/25/2023: Kidney function is stable on review of previous labs. 01/26/2023: A BUN 17, creatinine 0.9, eGFR 60, estimated creatinine clearance 38 Labs remained stable 01/27/23: BUN 32, creatinine 1.1 which is up from yesterday. We will hold the dose of Lasix today and re-evaluate in the morning Continue to trend labs Krishna catheter in place due to urinary retention yesterday. Patient complaining of bladder spasms today. Will start Ditropan as needed for pain control Time Spent With Patient Time with patient: Greater than 35 minutes Subjective Date/time seen: 01/27/23 08:42 Interval history: 01/25/23: Patient states she is feeling extraordinarily better. She is breathing much better and her cough is improved. She does states that she feels a little weak and she is worried that if she tries to walk she could potentially fall. Discussed with her that PT and OT evaluation would be beneficial and she was agreeable. Continue current treatment with steroids and azithromycin for COPD exacerbation.
[2023-01-27] MEDS: COLESTIPOL HCL 1 GM TABLET 2 GM BY MOUTH (09:51)
[2023-01-27] MEDS: AZITHROMYCIN 250 MG TABLET PO (09:51)
[2023-01-27] MEDS: ramipriL 5 MG CAPSULE PO (09:52)
[2023-01-27] MEDS: APIXABAN 5 MG TABLET PO ×2 (09:52→21:25)
[2023-01-27] MEDS: guaiFENesin 12 HR 600 MG TABCR PO ×2 (09:52→21:25)
[2023-01-27] MEDS: AMIODARONE HCL 100 MG TABLET PO (09:52)
[2023-01-27] MEDS: SERTRALINE HCL 50 MG TABLET 200 MG PO (09:53)
[2023-01-27] MEDS: dilTIAZem HCL CD 180 MG CAP.24HR 360 MG PO (09:53)
[2023-01-27] MEDS: LORazepam (*CRX) 1 MG TABLET PO ×2 (13:07→21:31)
--- NOTE | 2023-01-27 14:35 | PC.NURSE ---
On 01/27/23, the student, [Damion Abbott], provided care and completed [facility] documentation on this patient. I have reviewed the student's documentation and agree with the findings.
--- NOTE | 2023-01-27 20:42 | PC.NURSE ---
Pt' s daughter, Christy, called with concerns about pt's condition and confusion noted earlier today by pt's other daughter. I let Christy know that yahirmamckenzie RN informed me that confusion was noted after pt received a dose of Ativan for anxiety and had fallen asleep but pt is now answering appropriately when I saw her earlier. Christy also would like to have a [id number] conversation with the day hospitalist in charge of pt's case if possible to talk about pt's condition. Will let day RN know of this.
[2023-01-27] MEDS: ACETAMINOPHEN 325 MG TABLET 650 MG PO (21:25)
[2023-01-27] MEDS: ALPRAZolam (*CRX) 0.5 MG TABLET 1 MG PO (21:25)
[2023-01-27] MEDS: PRAVASTATIN SODIUM 20 MG TABLET 40 MG PO (21:25)
[2023-01-28] VITALS (15 sets, daily range): BP systolic 100–157; BP diastolic 56–78; PULSE 77–110; RESP 16–22; TEMP 36.1–36.4; O2SAT 92–96
[2023-01-28] MEDS: methylPREDNISolone SOD SUCC 125 MG VIAL 60 MG IV PUSH ×2 (00:13→05:05)
[2023-01-28 05:44] LABS: Hematocrit 30.3 % (37.0-47.0); Hemoglobin 9.2 g/dL (12.0-15.0); Mean Corpuscular HGB Conc 30.4 g/dl (32-36); Mean Corpuscular Hemoglobin 27.8 pg (26-34); Mean Corpuscular Volume 91.5 fl (80-100); Mean Platelet Volume 8.9 fl (7.4-10.4); Platelet Count Result 235 k/mm3 (150-375); Red Blood Count 3.31 M/mm3 (4.2-5.4); Red Cell Distribution Width 18.7 % (11.5-14.5); White Blood Count 8.4 K/mm3 (4.5-10.0)
[2023-01-28 05:55] LABS: Anion Gap 5 mmol/L (8-16); Blood Urea Nitrogen 32 mg/dL (7-17); Calcium 8.9 mg/dL (8.4-10.2); Carbon Dioxide 28 mmol/L (22-30); Chloride 101 mmol/L (98-107); Estimated CRCL calculation 43 ml/min; Estimated Glomerular Filt Rate > 60; Glucose 244 mg/dL (65-110); Potassium 4.7 mmol/L (3.4-5.0); Sodium 134 mmol/L (137-145)
[2023-01-28] MEDS: LEVALBUTEROL NEB 1.25 MG/3 ML 0.63 MG INHALATION ×3 (06:56→20:06)
[2023-01-28] MEDS: IPRATROPIUM BR 0.02% INH SOLN 0.5 MG/2.5 ML VIAL INHALATION ×3 (06:56→20:06)
[2023-01-28] MEDS: AZITHROMYCIN 250 MG TABLET PO (08:40)
[2023-01-28] MEDS: APIXABAN 5 MG TABLET PO ×2 (08:40→20:02)
[2023-01-28] MEDS: AMIODARONE HCL 100 MG TABLET PO (08:40)
[2023-01-28] MEDS: SERTRALINE HCL 50 MG TABLET 200 MG PO (08:41)
[2023-01-28] MEDS: guaiFENesin 12 HR 600 MG TABCR PO ×2 (08:41→20:02)
--- NOTE | 2023-01-28 09:47 | P.PNIM_ITS ---
Progress Note: A&P Assessment and Plan (1) COPD exacerbation: Code(s): J44.1 - Chronic obstructive pulmonary disease with (acute) exacerbation Status: Acute Assessment and Plan: 01/25/23: * Clinically she appears to have a COPD exacerbation with increasing shortness of breath, wheezing, and a cough which is now productive of yellow sputum. * Chest x-ray showed mild pulmonary edema and mild bibasilar atelectasis versus less likely pneumonia. * Continue Solu-Medrol and scheduled bronchodilators. * Azithromycin 500 mg x 1 then 250 mg x4 days 01/26/23: * Continue with current treatment plan of Solu-Medrol, bronchodilators, azithromycin * Continue to wean O2 back to baseline of 2 L NC * Continue Ativan as needed for anxiety * Blood glucose 215 this morning 01/27/2023: * Continue with current treatment plan of Solu-Medrol, bronchodilators, azithromycin * Patient oxygen in to 2 L today, patient oxygen saturation above 92% * Increased Ativan to 1 mg as needed for anxiety due to the use of steroids, will add melatonin 5 mg at bedtime for sleep aid * Blood sugar today 222 on lab 01/28/23: * Will decrease the Solu-Medrol today to 40 mg b.i.d. * continue with bronchodilators and treatments as necessary * patient tolerating Ativan 1 mg. She did rest well overnight and not as anxious today. We will keep ativan 1 mg today and taper down as we decrease the solu-medrol dose. * blood glucose 244 today (2) Pulmonary edema: Code(s): J81.1 - Chronic pulmonary edema Status: Acute Assessment and Plan: 01/25/2023: * Receive 1 dose of IV furosemide in the ED then x1 this morning. * Continue to monitor volume status, renal function, electrolytes closely. 01/26/23: * Patient started on furosemide 40 mg daily which is her home dose * Continue to monitor volume status 01/27/23: * Lasix 40 mg daily on hold due to increase in BUN were creatinine * Continue to monitor volume status labs 01/28/23: * will restart Lasix 40 mg daily, creatinine 0.8 today * continue to monitor volume status and labs (3) Paroxysmal atrial fibrillation: Code(s): I48.0 - Paroxysmal atrial fibrillation Status: Chronic Assessment and Plan: 01/25/2023: * Continue Eliquis 5 mg b.i.d. * Telemetry monitoring 01/26/23: * Continue telemetry monitoring * Obtain echo today due to shortness of breath and her chronic AFib. Patient was supposed to have it outpatient echo the beginning of February. * Continue Eliquis 5 mg b.i.d. * Continue amiodarone 100 mg daily 01/27/23: * No change to current treatment plan * Heart rate in the 80s to 90s rate controlled patient remains in AFib 01/28/23: * heart rate in the 80s to 90s been controlled, still remains in AFib * echo results shown normal RV and LV function, ejection fraction 60-75%, some mild pulmonary hypertension, patient will follow-up with cardiology on an outpatient basis (4) Hypertension: Code(s): I10 - Essential (primary) hypertension Status: Chronic Assessment and Plan: 01/25/23: * Continue amiodarone and diltiazem 01/26/2023: * Continue Cardizem * Blood pressure ranging 126/ 60s to 130/ 60s 01/27/23: * No change to current treatment plan (5) Hyperlipidemia: Code(s): E78.5 - Hyperlipidemia, unspecified Status: Chronic Assessment and Plan: 01/26/2023: * continue pravastatin 01/27/23: * no change to current treatment plan
--- NOTE | 2023-01-28 09:47 | PM.IMPN ---
Progress Note: A&P Assessment and Plan (1) COPD exacerbation: Code(s): J44.1 - Chronic obstructive pulmonary disease with (acute) exacerbation Status: Acute Assessment and Plan: 01/25/23: Clinically she appears to have a COPD exacerbation with increasing shortness of breath, wheezing, and a cough which is now productive of yellow sputum. Chest x-ray showed mild pulmonary edema and mild bibasilar atelectasis versus less likely pneumonia. Continue Solu-Medrol and scheduled bronchodilators. Azithromycin 500 mg x 1 then 250 mg x4 days 01/26/23: Continue with current treatment plan of Solu-Medrol, bronchodilators, azithromycin Continue to wean O2 back to baseline of 2 L NC Continue Ativan as needed for anxiety Blood glucose 215 this morning 01/27/2023: Continue with current treatment plan of Solu-Medrol, bronchodilators, azithromycin Patient oxygen in to 2 L today, patient oxygen saturation above 92% Increased Ativan to 1 mg as needed for anxiety due to the use of steroids, will add melatonin 5 mg at bedtime for sleep aid Blood sugar today 222 on lab 01/28/23: Will decrease the Solu-Medrol today to 40 mg b.i.d. continue with bronchodilators and treatments as necessary patient tolerating Ativan 1 mg. She did rest well overnight and not as anxious today. We will keep ativan 1 mg today and taper down as we decrease the solu-medrol dose. blood glucose 244 today (2) Pulmonary edema: Code(s): J81.1 - Chronic pulmonary edema Status: Acute Assessment and Plan: 01/25/2023: Receive 1 dose of IV furosemide in the ED then x1 this morning. Continue to monitor volume status, renal function, electrolytes closely. 01/26/23: Patient started on furosemide 40 mg daily which is her home dose Continue to monitor volume status 01/27/23: Lasix 40 mg daily on hold due to increase in BUN were creatinine Continue to monitor volume status labs 01/28/23: will restart Lasix 40 mg daily, creatinine 0.8 today continue to monitor volume status and labs (3) Paroxysmal atrial fibrillation: Code(s): I48.0 - Paroxysmal atrial fibrillation Status: Chronic Assessment and Plan: 01/25/2023: Continue Eliquis 5 mg b.i.d. Telemetry monitoring 01/26/23: Continue telemetry monitoring Obtain echo today due to shortness of breath and her chronic AFib. Patient was supposed to have it outpatient echo the beginning of February. Continue Eliquis 5 mg b.i.d. Continue amiodarone 100 mg daily 01/27/23: No change to current treatment plan Heart rate in the 80s to 90s rate controlled patient remains in AFib 01/28/23: heart rate in the 80s to 90s been controlled, still remains in AFib echo results shown normal RV and LV function, ejection fraction 60-75%, some mild pulmonary hypertension, patient will follow-up with cardiology on an outpatient basis (4) Hypertension: Code(s): I10 - Essential (primary) hypertension Status: Chronic Assessment and Plan: 01/25/23: Continue amiodarone and diltiazem 01/26/2023: Continue Cardizem Blood pressure ranging 126/ 60s to 130/ 60s 01/27/23: No change to current treatment plan (5) Hyperlipidemia: Code(s): E78.5 - Hyperlipidemia, unspecified Status: Chronic Assessment and Plan: 01/26/2023: continue pravastatin 01/27/23: no change to current treatment plan (6) Chronic kidney disease, stage 3: Code(s): N18.30 - Chronic kidney disease, stage 3 unspecified Status: Chronic Assessment and Plan: 01/25/2023: Kidney function is stable on review of previous labs. 01/26/2023: A BUN 17, creatinine 0.9, eGFR 60, estimated creatinine clearance 38 Labs remained stable 01/27/23: BUN 32, creatinine 1.1 which is up from yesterday. We will hold the dose of Lasix today and re-evaluate in the morning Continue to trend labs 01/28/23: BU
[2023-01-28] MEDS: COLESTIPOL HCL 1 GM TABLET 3 GM BY MOUTH (12:04)
--- NOTE | 2023-01-28 13:04 | PCRCNOTE ---
Pt ref 1400 neb
[2023-01-28] MEDS: LORazepam (*CRX) 1 MG TABLET PO (18:19)
[2023-01-28] MEDS: PRAVASTATIN SODIUM 20 MG TABLET 40 MG PO (20:02)
[2023-01-28] MEDS: ALPRAZolam (*CRX) 0.5 MG TABLET 1 MG PO (20:02)
[2023-01-28] MEDS: methylPREDNISolone SOD SUCC 125 MG VIAL 40 MG IV PUSH (20:06)
[2023-01-29] VITALS (15 sets, daily range): BP systolic 132–142; BP diastolic 67–75; PULSE 67–124; RESP 18–22; TEMP 36.4; O2SAT 92–97
[2023-01-29] MEDS: LEVALBUTEROL NEB 1.25 MG/3 ML 0.63 MG INHALATION ×3 (02:51→13:30)
[2023-01-29] MEDS: IPRATROPIUM BR 0.02% INH SOLN 0.5 MG/2.5 ML VIAL INHALATION ×3 (02:52→13:30)
[2023-01-29 05:48] LABS: Hematocrit 30.2 % (37.0-47.0); Hemoglobin 9.1 g/dL (12.0-15.0); Mean Corpuscular HGB Conc 30.1 g/dl (32-36); Mean Corpuscular Hemoglobin 27.3 pg (26-34); Mean Corpuscular Volume 90.7 fl (80-100); Mean Platelet Volume 8.7 fl (7.4-10.4); Platelet Count Result 224 k/mm3 (150-375); Red Blood Count 3.33 M/mm3 (4.2-5.4); Red Cell Distribution Width 18.5 % (11.5-14.5)
[2023-01-29 05:56] LABS: Anion Gap 6 mmol/L (8-16); Blood Urea Nitrogen 29 mg/dL (7-17); Calcium 8.9 mg/dL (8.4-10.2); Carbon Dioxide 28 mmol/L (22-30); Chloride 100 mmol/L (98-107); Estimated CRCL calculation 43 ml/min; Estimated Glomerular Filt Rate 60; Glucose 243 mg/dL (65-110); Potassium 4.8 mmol/L (3.4-5.0); Sodium 134 mmol/L (137-145)
[2023-01-29] MEDS: UMECLIDINIUM/VILANTEROL 62.5-25 MCG ELLIPTA 1 PUFF INHALATION (07:33)
[2023-01-29] MEDS: SERTRALINE HCL 50 MG TABLET 200 MG PO (08:15)
[2023-01-29] MEDS: guaiFENesin 12 HR 600 MG TABCR PO (08:15)
[2023-01-29] MEDS: ramipriL 5 MG CAPSULE PO (08:15)
[2023-01-29] MEDS: AMIODARONE HCL 100 MG TABLET PO (08:15)
[2023-01-29] MEDS: APIXABAN 5 MG TABLET PO (08:15)
[2023-01-29] MEDS: methylPREDNISolone SOD SUCC 125 MG VIAL 40 MG IV PUSH (08:16)
[2023-01-29] MEDS: dilTIAZem HCL CD 180 MG CAP.24HR 360 MG PO (08:16)
[2023-01-29] MEDS: COLESTIPOL HCL 1 GM TABLET 3 GM BY MOUTH (12:18)
--- NOTE | 2023-01-29 16:38 | PM.DS ---
DS: Admitting Diagnosis Discharge Date 01/29/23 Admitting Diagnosis Chronic obstructive pulmonary disease with acute exasperation Pulmonary edema Paroxysmal atrial fibrillation Hypertension Hyperlipidemia Chronic kidney disease stage 3 Panic anticoagulation DS: Discharge Diagnosis Discharge Diagnosis (1) COPD exacerbation: Code(s): J44.1 - Chronic obstructive pulmonary disease with (acute) exacerbation Status: Acute (2) Pulmonary edema: Code(s): J81.1 - Chronic pulmonary edema Status: Acute (3) Paroxysmal atrial fibrillation: Code(s): I48.0 - Paroxysmal atrial fibrillation Status: Chronic (4) Hypertension: Code(s): I10 - Essential (primary) hypertension Status: Chronic (5) Hyperlipidemia: Code(s): E78.5 - Hyperlipidemia, unspecified Status: Chronic (6) Chronic kidney disease, stage 3: Code(s): N18.30 - Chronic kidney disease, stage 3 unspecified Status: Chronic DS: Summary Hospital Course Reason for hospitalization: See chronic obstructive pulmonary disease with acute exacerbation Hospital Course: This is a 77-year-old female with chronic respiratory failure on home O2 2-2.5 L who presented to the hospital with increasing shortness of breath and productive cough. She did report some wheezing and her nebulizers at home were not working. She is a current every day smoker however she did cut back to 5 cigarettes a day. Workup in the hospital included a chest x-ray on 01/24/2023 which showed mild pulmonary edema with small bilateral pleural effusions, mild bibasilar atelectasis versus less likely pneumonia. Patient was given of full course of azithromycin and she has received more than 5 days of Solu-Medrol along with breathing treatments. Today patient states that she is feeling much better. Her vital signs have been stable, she has been afebrile, she is back to her baseline 2-2.5 L nasal cannula. She denies any pain. She has worked with physical therapy and occupational therapy while here. Yesterday she increased her activity and started ambulating in the halls and has tolerated that just fine. Labs today revealed a low white blood cell count of 8.0, hemoglobin 9.1, hematocrit 30.2, sodium 134, potassium 4.8, BUN 29, creatinine 29. We have started to taper her Solu-Medrol while here, we will send patient home with a prednisone taper starting with 50 mg and will taper down accordingly. Patient will need to follow up with her primary care physician and her supervisor functional testing within 1 week. She states that she has a follow up appointment for Cardiology as well for her atrial fibrillation. Plan discussed with patient and her daughter at the bedside and they are agreeable with discharge at this time. Patient is stable from a medical standpoint. Status at Discharge Cognitive/behavioral status at discharge: Alert and oriented x4 Functional status at discharge: uses cane/walker Overall status at discharge: patient is progressing back to baseline Time Spent with Patient Time attestation: Total time spent providing and/or coordinating discharge services: Time spent: Greater than 30 minutes Exam Narrative: General:?Chronically ill-appearing female sitting up in bed in no acute distress. HEENT:?PERRL, EOMI.? Oral mucosa pink and moist. Neck:??Supple. No JVD. Trachea midline, no adenopathy. Respiratory:?Respirations are nonlabored, lung sounds are clear to auscultation, no adventitious lung sounds noted Cardiovascular:??irregular rhythm, A-fib rate 90-100 and rate controlled. 2/2 pulses, no peripheral edema, No murmurs, gallops or friction rub. Gastrointestinal:??Abdomen is soft, nontender, and nondistended with normoactive bowel sounds. Skin:??Warm and dry.? No rash or lesions noted Extremities:??No cyanosis, clubbing, or edema. Radial and pedal pulses 2/2+ intact. Neurological:??Alert and oriented x3.? No gross focal deficits. Psychiatric:??Pleasant and cooperative
== END 2023-01-29 18:25 | disposition home or self-care (01) | DRG 191 ==
LOC: ANHED 11:49 → ANH3MEDSUR 15:23 → ANH2MED 17:10
PROVIDERS: Physician Assistant; Admitting Provider Internal Medicine; Emergency Provider Emergency Medicine; PCP Physician Assistant; Visit Provider Nurse Practitioner Acute Care
DX: J44.1 Chronic obstructive pulmonary disease with (acute) exacerbation (principal); J81.1 Chronic pulmonary edema; E78.5 Hyperlipidemia, unspecified; F17.210 Nicotine dependence, cigarettes, uncomplicated; F41.9 Anxiety disorder, unspecified; I25.10 Atherosclerotic heart disease of native coronary artery without angina pectoris; I48.0 Paroxysmal atrial fibrillation; I12.9 Hypertensive chronic kidney disease with stage 1 through stage 4 chronic kidney disease, or unspecified chronic kidney disease; N18.30 Chronic kidney disease, stage 3 unspecified; Z23 Encounter for immunization; Z90.49 Acquired absence of other specified parts of digestive tract; Z95.5 Presence of coronary angioplasty implant and graft; Z99.81 Dependence on supplemental oxygen; Z79.01 Long term (current) use of anticoagulants; Z88.0 Allergy status to penicillin; Z90.710 Acquired absence of both cervix and uterus
CPT/HCPCS: 36415; 71046; 80048; 80053; 83735; 83880; 84443; 85025; 85027; 90471; 90694; 93005; 93306; 94640; 96374; 96376; 97161; 97165; 99285; A9270; G0008; G0378; J1940; J2930

== ENCOUNTER 2023-02-17 13:24 | Inpatient (IN) | payer MEDICARE, BC, SELFPAY ==
[2023-02-17] VITALS (33 sets, daily range): BP systolic 96–132; BP diastolic 49–90; PULSE 62–98; RESP 16–20; TEMP 36.3–36.5; O2SAT 82–98; BMI 24.9
--- NOTE | ~2023-02-17 | CT_ITS ---
EXAMINATION: CT hip LT wo con DATE: 02/17/2023 17:59 INDICATION: Left hip pain. Fall. TECHNIQUE: Computed tomography (CT) of the left hip was performed without intravenous contrast. Autom ated exposure control and iterative reconstruction technique were employed. The dose-length product w as 216.07 mGy-cm. COMPARISON: Left hip radiographs 02/17/2023 FINDINGS: There is a fracture of greater trochanter of proximal left femur with 4 mm displacement. Th ere is moderate left hip osteoarthritis. Osteitis pubis is noted. IMPRESSION: 1. Fracture of greater trochanter of proximal left femur. 2. Moderate left hip osteoarthritis. Reviewed, dictated and finalized at location E. [facility]
--- NOTE | ~2023-02-17 | XR_ITS ---
EXAMINATION: XR hip LT 2V w AP pelvis DATE: 02/17/2023 17:06 INDICATION: Left hip pain post fall TECHNIQUE: Anteroposterior view of the pelvis and anteroposterior and frog-leg lateral views of the l eft hip were obtained. COMPARISON: None. FINDINGS: Bone alignment is normal. There is suggestion of a possible involving the posterior facet of the left greater trochanter. No other lesions suspicious for fracture identified. There is ankylosis across p ortions of the bilateral sacroiliac joints. Mild osteoarthritis at the bilateral hip joints. Moderate lumbar spondylosis. There is calcified atherosclerosis of the aorta and bilateral iliac and proximal femoral arteries. Fusiform infrarenal abdominal aortic aneurysm measuring approximately 4.3 cm in le ft right diameter. IMPRESSION: 1. Suggestion of a possible nondisplaced avulsion fracture of the posterior facet of the left greater trochanter involving the footplate of the gluteus medius tendon. Could consider CT for more definiti ve determination. 2. Fusiform infrarenal abdominal aortic aneurysm measuring approximately 4.3 cm. Reviewed, dictated and finalized at location A. [facility] IMPRESSION: 1. Suggestion of a possible nondisplaced avulsion fracture of the posterior fac et of the left greater trochanter involving the footplate of the gluteus medius tendon. Could consider CT for more definitive determination. 2. Fusiform infrarenal abdominal aortic aneurysm measuring approximately 4.3 cm .
[2023-02-17] MEDS: MORPHINE SULFATE (*CRX) 4 MG/ML INJ IV PUSH (16:57)
--- NOTE | 2023-02-17 17:16 | ED.GENADULT ---
HPI - General Adult General Chief complaint: Fall Stated complaint: lrft hip pain post fall Time Seen by Provider: 02/17/23 16:34 History of Present Illness HPI narrative: Patient is a 77-year-old female who presents ER with left hip pain. Patient was trying to walk up 2 steps earlier this morning when she fell down onto her left side injuring her hip. She did not strike her head or lose consciousness. She is on Plavix and Eliquis. She was able to get up afterwards and was able to ice the leg. She then had significant increase in pain was unable to walk after that. No numbness or tingling. No additional concerns. Related Data Home Medications Medication Instructions Recorded Confirmed amiodarone 100 mg tablet (Pacerone) 100 mg PO DAILY 08/07/20 02/05/23 apixaban 5 mg tablet (Eliquis) 5 mg PO BID 08/07/20 02/05/23 furosemide 40 mg tablet 40 mg PO DAILY 08/07/20 02/05/23 pravastatin 40 mg tablet 40 mg PO HS 08/07/20 02/05/23 clopidogrel 75 mg tablet 75 mg PO DAILY 02/03/23 02/05/23 diltiazem HCl 360 mg 360 mg PO DAILY 02/03/23 02/05/23 capsule,extended release 24 hr colestipol 1 gram tablet (Colestid) 2 g PO DAILY 02/05/23 02/05/23 Allergies Allergy/AdvReac Type Severity Reaction Status Date / Time Penicillins AdvReac Intermediate yeast Verified 02/17/23 16:36 infection Review of Systems Review of Systems: All systems reviewed & are unremarkable except as noted in HPI and below Constitutional: Constitutional: Reports no additional constitutional complaints Cardiovascular: Cardiovascular: Reports no additional cardiovascular complaints Respiratory: Respiratory: Reports no additional respiratory complaints Gastrointestinal: Gastrointestinal: Reports no additional gastrointestinal complaints Musculoskeletal: Musculoskeletal: Denies back pain, Reports arthralgias, Denies joint swelling and Denies muscle cramps Neurologic: Reports system reviewed and no additional complaints, except as documented PMFSH Past Medical History Medical History Anxiety Chronic anticoagulation Chronic kidney disease, stage 3 Compression fracture of body of thoracic vertebra Hyperlipidemia Hypertension Paroxysmal atrial fibrillation Surgical History Surgical History History of appendectomy History of cardiac catheterization History of cholecystectomy History of coronary artery stent placement History of hysterectomy History of partial colectomy History of tonsillectomy Family History Family History Father Family history of emphysema Patient's father is Mother Patient's mother is Family history of chronic obstructive pulmonary disease Social History Social History Smoking packs per day: 1 Smoking cigarettes per day: 20.0 Years smoked: 50 Smoking pack-years: 50.00 Smoking status: Former smoker Tobacco type: cigarettes Second hand tobacco smoke exposure: No Smoking end date: 01/24/23 Alcohol intake: never Substance use: never Substance use type: does not use Lack of Transportation: No Lack of Food: Never True Current Housing: I Have Housing Concerned About Future Housing: No Difficulty Paying Gas/Electric Bills: No Difficulty Paying for Meds: No Currently Unemployed: No Education: Bachelor's Degree Difficulty w/ Childcare or Family Care: No Spiritual care concerns: No Exam Narrative: GENERAL: Well-appearing, well-nourished, and in no acute distress. HEAD: Normocephalic, atraumatic. EYES: PERRL and EOMI. ENT: Mucous membranes moist. CHEST: Clear to auscultation. No respiratory distress. HEART: Regular rate and rhythm. Normal peripheral pulses. ABDOMEN: Soft, nontender, nondistended. EXTREMITIES: Limited range of motion
[2023-02-17 19:55] LABS: Basophils Percent Auto 0.3 % (0.2-1.2); Eosinophils Percent Auto 0.3 % (0-4.4); Hematocrit 30.6 % (37.0-47.0); Hemoglobin 9.2 g/dL (12.0-15.0); Immature Granulocyte Absolute 0.01 K/mm3 (0.00-0.031); Immature Granulocyte Percent A 0.2 % (0-0.5); Lymphocytes Absolute Auto 1.19 K/mm3 (0.9-3.2); Lymphocytes Percent Auto 18.4 % (18.3-44.2); Mean Corpuscular HGB Conc 30.1 g/dl (32-36); Mean Corpuscular Hemoglobin 27.1 pg (26-34); Mean Corpuscular Volume 90.3 fl (80-100); Mean Platelet Volume 9.4 fl (7.4-10.4); Monocytes Absolute Auto 0.5 K/mm3 (0.1-0.6); Monocytes Percent Auto 7.7 % (2.6-8.5); Neutrophils Absolute Auto 4.7 K/mm3 (1.3-6.7); Neutrophils Percent Auto 73.1 % (45.5-73.1); Platelet Count Result 216 k/mm3 (150-375); Red Blood Count 3.39 M/mm3 (4.2-5.4); Red Cell Distribution Width 18.2 % (11.5-14.5); White Blood Count 6.5 K/mm3 (4.5-10.0)
[2023-02-17 20:05] LABS: Anion Gap 6 mmol/L (8-16); Blood Urea Nitrogen 21 mg/dL (7-17); Calcium 8.8 mg/dL (8.4-10.2); Carbon Dioxide 27 mmol/L (22-30); Chloride 104 mmol/L (98-107); Estimated CRCL calculation 27 ml/min; Estimated Glomerular Filt Rate 40; Glucose 98 mg/dL (65-110); Potassium 3.9 mmol/L (3.4-5.0); Sodium 137 mmol/L (137-145)
[2023-02-17 20:12] LABS: INR 1.4; Prothrombin Time 17.6 Seconds (11.1-14.7)
[2023-02-17 20:13] LABS: Partial Thromboplastin Time 41.7 SECONDS (22.3-36.8)
--- NOTE | 2023-02-17 21:08 | PM.IMHP ---
H&P: HPI History of Present Illness Date/Time: 02/17/23 21:08 Chief Complaint: fall Narrative: Patient is a 77-year-old female who presents ER with left hip pain.? Patient was trying to walk up 2 steps earlier this morning when she fell down onto her left side injuring her hip.? She did not strike her head or lose consciousness.? She is on Plavix and Eliquis.? She was able to get up afterwards and was able to ice the leg.? She then had significant increase in pain was unable to walk after that.? No numbness or tingling.? No additional concerns.She denied pain in any other part of her body, rated pain as minimal currently. She was evaluated and found to have closed left greater tronchanteric fracutre of the proximal femur, otho ws consulted and she will be managed nonoperatively. She also has Mamta with elevated creatitine level. She will be admitted for observation and rehabilitation Review of Systems Review of Systems: All systems reviewed & are unremarkable except as noted in HPI and below PMFSH Past Medical History Medical History Anxiety Chronic anticoagulation Chronic kidney disease, stage 3 Compression fracture of body of thoracic vertebra Hyperlipidemia Hypertension Paroxysmal atrial fibrillation Surgical History Surgical History History of appendectomy History of cardiac catheterization History of cholecystectomy History of coronary artery stent placement History of hysterectomy History of partial colectomy History of tonsillectomy Family History Family History Father Family history of emphysema Patient's father is Mother Patient's mother is Family history of chronic obstructive pulmonary disease Social History Social History Smoking packs per day: 1 Smoking cigarettes per day: 20.0 Years smoked: 50 Smoking pack-years: 50.00 Smoking status: Former smoker Tobacco type: cigarettes Second hand tobacco smoke exposure: No Smoking end date: 01/24/23 Alcohol intake: never Substance use: never Substance use type: does not use Lack of Transportation: No Lack of Food: Never True Current Housing: I Have Housing Concerned About Future Housing: No Difficulty Paying Gas/Electric Bills: No Difficulty Paying for Meds: No Currently Unemployed: No Education: Bachelor's Degree Difficulty w/ Childcare or Family Care: No Spiritual care concerns: No Meds Home Medications and Allergies Home Medications Medication Instructions Recorded Confirmed Type amiodarone 100 mg tablet (Pacerone) 100 mg PO DAILY 08/07/20 02/17/23 History apixaban 5 mg tablet (Eliquis) 5 mg PO BID 08/07/20 02/17/23 History furosemide 40 mg tablet 60 mg PO DAILY 08/07/20 02/17/23 History pravastatin 40 mg tablet 40 mg PO HS 08/07/20 02/17/23 History albuterol sulfate 90 mcg/actuation 2 puff inhalation Q4-6H PRN 07/09/22 02/17/23 Rx aerosol inhaler shortness of breath or wheezing 90 days #25.5 grams sertraline 100 mg tablet 200 mg PO DAILY #180 tabs 11/22/22 02/17/23 Rx alprazolam 1 mg tablet 1 mg PO QHS #90 tabs 12/27/22 02/17/23 Rx clopidogrel 75 mg tablet 75 mg PO DAILY 02/03/23 02/17/23 History diltiazem HCl 360 mg 360 mg PO DAILY 02/03/23 02/17/23 History capsule,extended release 24 hr colestipol 1 gram tablet (Colestid) 2 g PO DAILY 02/05/23 02/17/23 History ramipril 5 mg capsule 5 mg PO DAILY #90 caps 02/07/23 02/17/23 Rx Allergies Allergy/AdvReac Type Severity Reaction Status Date / Time Penicillins AdvReac Intermediate yeast Verified 02/17/23 16:36 infection Vital Signs Vital Signs - 24 hr 02/17/23 13:24 02/17/23 16:58 02/17/23 18:20 Temperature 97.7 F Pulse Rate 98 76 94 Respiratory Rate 16 18 18 Blood Pressure 113/55 L 12
[2023-02-17] MEDS: SODIUM CHLORIDE 0.9% IV 1,000 ML 75 ML IV CONT (22:45)
--- NOTE | 2023-02-17 22:48 | ADMGEN ---
This patient, Maria Dolores Boles, was admitted to Medical Room 252-01. Patient/family oriented to hospital policies and general routines including ID bracelet, bed and alarms, visiting hours, pain management, procedures, bathroom and other care routines, personal items, smoking policy, room service/diet, and visiting hours. Information on how to activate the Rapid Response Team has been discussed. Patient/Family are encouraged to report perceived risks to care and to ask questions if they do not understand what they are told or what they should do.
[2023-02-17] MEDS: HYDROcodone/acetaminophen (*CRX) 5-325 MG TABLET 1 TAB PO (23:59)
[2023-02-18 00:35] LABS: Amorphous Sediment Urine Present; Appearance Urine Cloudy (Clear); Bacteria Urine 2+ /hpf; Bilirubin Urine Negative (Negative); Blood Urine Negative (Negative); Color Urine Yellow (Yellow); Glucose Urine UA Negative (Negative); Hyaline Casts Urine Present /lpf; Ketones Urine Negative (Negative); Leukocyte Esterase Ur Trace LEU/UL (Negative); Mucus Urine Present /lpf; Nitrate Urine Negative (Negative); Protein Urine Negative (Negative); Specific Grav Ur 1.024 (1.001-1.035); Squamous Epithelial Cell Urine Few /hpf (Few); Urobilinogen Urine 0.2 mg/dL (<2.0)
[2023-02-18 00:53] LABS: Add Urine Microscopic? YES
[2023-02-18 03:41] VITALS: BP 117/56; PULSE 91; RESP 16; TEMP 36.4; O2SAT 93
[2023-02-18 06:04] LABS: Basophils Percent Auto 0.3 % (0.2-1.2); Eosinophils Absolute Auto 0.1 K/mm3 (0-0.3); Eosinophils Percent Auto 1.9 % (0-4.4); Hematocrit 29.1 % (37.0-47.0); Hemoglobin 8.8 g/dL (12.0-15.0); Immature Granulocyte Absolute 0.02 K/mm3 (0.00-0.031); Immature Granulocyte Percent A 0.3 % (0-0.5); Lymphocytes Absolute Auto 1.06 K/mm3 (0.9-3.2); Lymphocytes Percent Auto 18.2 % (18.3-44.2); Mean Corpuscular HGB Conc 30.2 g/dl (32-36); Mean Corpuscular Hemoglobin 27.2 pg (26-34); Mean Corpuscular Volume 89.8 fl (80-100); Mean Platelet Volume 9.6 fl (7.4-10.4); Monocytes Absolute Auto 0.5 K/mm3 (0.1-0.6); Monocytes Percent Auto 8.2 % (2.6-8.5); Neutrophils Absolute Auto 4.1 K/mm3 (1.3-6.7); Neutrophils Percent Auto 71.1 % (45.5-73.1); Platelet Count Result 222 k/mm3 (150-375); Red Blood Count 3.24 M/mm3 (4.2-5.4); White Blood Count 5.8 K/mm3 (4.5-10.0)
[2023-02-18 06:19] LABS: Anion Gap 7 mmol/L (8-16); Blood Urea Nitrogen 17 mg/dL (7-17); Calcium 8.7 mg/dL (8.4-10.2); Carbon Dioxide 26 mmol/L (22-30); Chloride 105 mmol/L (98-107); Estimated CRCL calculation 32 ml/min; Estimated Glomerular Filt Rate 48; Glucose 99 mg/dL (65-110); Potassium 3.5 mmol/L (3.4-5.0); Sodium 138 mmol/L (137-145)
[2023-02-18 08:00] VITALS: O2SAT 89
--- NOTE | 2023-02-18 08:06 | PCPTNOTE ---
Ortho consult pending. Waiting for recommendation.
[2023-02-18 08:50] VITALS: O2SAT 89
[2023-02-18] MEDS: COLESTIPOL HCL 1 GM TABLET 2 GM PO (08:50)
[2023-02-18] MEDS: dilTIAZem HCL CD 180 MG CAP.24HR 360 MG PO (08:51)
[2023-02-18 08:52] VITALS: PULSE 80
[2023-02-18] MEDS: AMIODARONE HCL 100 MG TABLET PO (08:52)
[2023-02-18] MEDS: APIXABAN 5 MG TABLET PO ×2 (08:52→20:13)
[2023-02-18] MEDS: SERTRALINE HCL 50 MG TABLET 200 MG PO (08:52)
[2023-02-18] MEDS: HYDROcodone/acetaminophen (*CRX) 5-325 MG TABLET 1 TAB PO ×2 (13:00→20:13)
--- NOTE | 2023-02-18 13:14 | PM.CNOR ---
Assessment and Plan Assessment and plan (1) Closed fracture of greater trochanter of femur: Code(s): S72.113A - Displaced fracture of greater trochanter of unspecified femur, initial encounter for closed fracture Status: Acute Assessment and Plan: Left greater trochanteric Fx. Recommend touch weight bearing with a walker. Followup 1-2 weeks for x-rays. History of Present Illness HPI Consult date: 02/18/23 Chief complaint: greater trochanter fracture Narrative: Patient fell with Fx Left greater trochanter. Admitted for pain and ambulation. [facility] Past Medical History Medical History Anxiety Chronic anticoagulation Chronic kidney disease, stage 3 Compression fracture of body of thoracic vertebra Hyperlipidemia Hypertension Paroxysmal atrial fibrillation Surgical History Surgical History History of appendectomy History of cardiac catheterization History of cholecystectomy History of coronary artery stent placement History of hysterectomy History of partial colectomy History of tonsillectomy Family History Family History Father Family history of emphysema Patient's father is Mother Patient's mother is Family history of chronic obstructive pulmonary disease Social History Social History Smoking packs per day: 1 Smoking cigarettes per day: 20.0 Years smoked: 50 Smoking pack-years: 50.00 Smoking status: Former smoker Tobacco type: cigarettes Second hand tobacco smoke exposure: No Smoking end date: 01/24/23 Alcohol intake: never Substance use: never Substance use type: does not use Lack of Transportation: No Lack of Food: Never True Current Housing: I Have Housing Concerned About Future Housing: No Difficulty Paying Gas/Electric Bills: No Difficulty Paying for Meds: No Currently Unemployed: No Education: Bachelor's Degree Difficulty w/ Childcare or Family Care: No Spiritual care concerns: No Meds Home Medications and Allergies Home Medications Medication Instructions Recorded Confirmed Type amiodarone 100 mg tablet (Pacerone) 100 mg PO DAILY 08/07/20 02/17/23 History apixaban 5 mg tablet (Eliquis) 5 mg PO BID 08/07/20 02/17/23 History furosemide 40 mg tablet 60 mg PO DAILY 08/07/20 02/17/23 History pravastatin 40 mg tablet 40 mg PO HS 08/07/20 02/17/23 History albuterol sulfate 90 mcg/actuation 2 puff inhalation Q4-6H PRN 07/09/22 02/17/23 Rx aerosol inhaler shortness of breath or wheezing 90 days #25.5 grams sertraline 100 mg tablet 200 mg PO DAILY #180 tabs 11/22/22 02/17/23 Rx alprazolam 1 mg tablet 1 mg PO QHS #90 tabs 12/27/22 02/17/23 Rx clopidogrel 75 mg tablet 75 mg PO DAILY 02/03/23 02/17/23 History diltiazem HCl 360 mg 360 mg PO DAILY 02/03/23 02/17/23 History capsule,extended release 24 hr colestipol 1 gram tablet (Colestid) 2 g PO DAILY 02/05/23 02/17/23 History ramipril 5 mg capsule 5 mg PO DAILY #90 caps 02/07/23 02/17/23 Rx Allergies Allergy/AdvReac Type Severity Reaction Status Date / Time Penicillins AdvReac Intermediate yeast Verified 02/17/23 16:36 infection Vital Signs Vital Signs - 24 hr 02/17/23 13:24 02/17/23 16:58 02/17/23 18:20 Temperature 97.7 F Pulse Rate 98 76 94 Respiratory Rate 16 18 18 Blood Pressure 113/55 L 126/66 121/90 Pulse Oximetry 96 94 92 Oxygen Delivery Nasal Cannula Oxygen Flow Rate 3 02/17/23 16:55 02/17/23 16:57 02/17/23 17:09 Temperature Pulse Rate Respiratory Rate Blood Pressure 126/66 Pulse Oximetry 98 97 Oxygen Delivery Oxygen Flow Rate 02/17/23 17:24 02/17/23 17:33 02/17/23 17:59 Temperature Pulse Rate Respiratory Rate Blood Pressure Pulse Oximetry 95 96 95 Oxygen Deliv
--- NOTE | 2023-02-18 13:21 | PM.IMPN ---
Progress Note: A&P Assessment and Plan (1) Closed fracture of greater trochanter of femur: Code(s): S72.113A - Displaced fracture of greater trochanter of unspecified femur, initial encounter for closed fracture Status: Acute Assessment and Plan: Patient had fall at home resulting in left hip pain. X-ray revealing left greater trochanteric fracture. Orthopedics consulted breathe. Recommendations. Patient opted for non operative management. Orthopedics recommending toe-touch weight-bearing with walker and a follow-up in 1-2 weeks for x-ray. (2) ANMOL (acute kidney injury): Code(s): N17.9 - Acute kidney failure, unspecified Status: Acute Assessment and Plan: Patient found to have elevated BUN creatinine. Repeat labs in the a.m.. Continue IV fluids. (3) Anemia: Code(s): D64.9 - Anemia, unspecified Status: Chronic Assessment and Plan: Stable. Subjective Date/time seen: 02/18/23 13:21 Interval history: Patient doing well and pain is under control. She states that she is wanting non operative management if possible. PT and OT ordered. Waiting for further recommendations from care coordination in regards to patient's discharge. Exam Narrative: GENERAL: Comfortable, no acute distress HENMT: moist mucous membranes EYES: EOM intact b/l NECK: no lymphadenopathy RESPIRATORY: clear to auscultation CARDIO: RRR GI: soft, nontender, bowel sounds present SKIN: no rashes EXTREMITIES: no edema, redness or tenderness Objective Data Vital Signs Vital Signs: Vital Signs - 24 hr 02/17/23 13:24 02/17/23 16:58 02/17/23 18:20 Temperature 97.7 F Pulse Rate 98 76 94 Respiratory Rate 16 18 18 Blood Pressure 113/55 L 126/66 121/90 Pulse Oximetry 96 94 92 Oxygen Delivery Nasal Cannula Oxygen Flow Rate 3 02/17/23 16:55 02/17/23 16:57 02/17/23 17:09 Temperature Pulse Rate Respiratory Rate Blood Pressure 126/66 Pulse Oximetry 98 97 Oxygen Delivery Oxygen Flow Rate 02/17/23 17:24 02/17/23 17:33 02/17/23 17:59 Temperature Pulse Rate Respiratory Rate Blood Pressure Pulse Oximetry 95 96 95 Oxygen Delivery Oxygen Flow Rate 02/17/23 18:00 02/17/23 18:17 02/17/23 18:18 Temperature Pulse Rate Respiratory Rate Blood Pressure 121/90 Pulse Oximetry 94 88 L 92 Oxygen Delivery Oxygen Flow Rate 02/17/23 18:33 02/17/23 18:47 02/17/23 19:26 Temperature Pulse Rate Respiratory Rate Blood Pressure 132/72 Pulse Oximetry 94 95 Oxygen Delivery Oxygen Flow Rate 02/17/23 19:30 02/17/23 19:51 02/17/23 20:00 Temperature Pulse Rate Respiratory Rate Blood Pressure Pulse Oximetry 92 94 91 Oxygen Delivery Oxygen Flow Rate 02/17/23 20:18 02/17/23 20:30 02/17/23 20:31 Temperature Pulse Rate Respiratory Rate Blood Pressure 111/72 Pulse Oximetry 82 L 92 Oxygen Delivery Oxygen Flow Rate 02/17/23 20:45 02/17/23 20:46 02/17/23 21:00 Temperature Pulse Rate Respiratory Rate Blood Pressure 104/53 L 111/67 Pulse Oximetry 92 94 91 Oxygen Delivery Oxygen Flow Rate 02/17/23 21:08 02/17/23 21:16 02/17/23 21:17 Temperature Pulse Rate Respiratory Rate Blood Pressure 98/49 L Pulse Oximetry 94 90 94 Oxygen Delivery Oxygen Flow Rate 02/17/23 21:30 02/17/23 21:31 02/17/23 22:01 Temperature Pulse Rate Respiratory Rate Blood Pressure 96/52 L 99/59 L Pulse Oximetry 95 94 95 Oxygen Delivery Oxygen Flow Rate 02/17/23 22:02 02/17/23 22:42 02/17/23 22:55 Temperature 97.4 F L Pulse Rate 62 Respiratory Rate 20 Blood Pressure 116/63 Pulse Oximetry 98 93 93 Oxygen Delivery Nasal Cannula Oxygen Flow Rate 2 02/18/23 03:41 02/18/23 08:52 02/18/23 08:00 Temperature 97.6 F Pulse Rate 91 80 Respiratory Rate 16 Blood Pres
--- NOTE | 2023-02-18 14:14 | PC.NURSE ---
On 02/18/23, the student, [Pravin Moreira], provided care and completed [facility] documentation on this patient. I have reviewed the student's documentation and agree with the findings.
[2023-02-18 14:22] VITALS: BP 113/49; PULSE 93; RESP 18; TEMP 36.3; O2SAT 94
[2023-02-18] MEDS: ALPRAZolam (*CRX) 0.5 MG TABLET 1 MG PO (20:11)
[2023-02-18] MEDS: PRAVASTATIN SODIUM 20 MG TABLET 40 MG PO (20:13)
[2023-02-18 22:00] VITALS: BP 130/52; PULSE 68; RESP 16; TEMP 36.8; O2SAT 91
[2023-02-19 05:33] VITALS: BP 125/55; PULSE 100; RESP 18; TEMP 36.4; O2SAT 93
[2023-02-19 08:05] LABS: Hematocrit 29.2 % (37.0-47.0); Hemoglobin 8.7 g/dL (12.0-15.0); Mean Corpuscular HGB Conc 29.8 g/dl (32-36); Mean Corpuscular Hemoglobin 27.2 pg (26-34); Mean Corpuscular Volume 91.3 fl (80-100); Mean Platelet Volume 9.3 fl (7.4-10.4); Platelet Count Result 213 k/mm3 (150-375); Red Cell Distribution Width 17.8 % (11.5-14.5); White Blood Count 6.5 K/mm3 (4.5-10.0)
[2023-02-19 08:18] LABS: Anion Gap 6 mmol/L (8-16); Blood Urea Nitrogen 12 mg/dL (7-17); Calcium 8.6 mg/dL (8.4-10.2); Carbon Dioxide 29 mmol/L (22-30); Chloride 103 mmol/L (98-107); Estimated CRCL calculation 38 ml/min; Estimated Glomerular Filt Rate 60; Glucose 105 mg/dL (65-110); Potassium 3.8 mmol/L (3.4-5.0); Sodium 138 mmol/L (137-145)
--- NOTE | 2023-02-19 09:06 | PM.PNORT ---
Progress Note: A&P Assessment and Plan (1) Closed fracture of greater trochanter of femur: Code(s): S72.113A - Displaced fracture of greater trochanter of unspecified femur, initial encounter for closed fracture Status: Acute Assessment and Plan: Patient is status post trochanteric fracture left. Overall she is doing fine. All ambulator slowly just touch weight-bearing at this point. She will need rehab. Follow-up 1 to 2 weeks in the office for x-rays. If she has any changes or problems she will call discussed. Subjective Subjective Date/Time Seen: 02/19/23 09:06 Principal diagnosis: Left Greater Trochanteric hip FX Interval history: Patient is status post although left greater trochanteric fracture. Exam Narrative: Patient is tender over the left hip going on her toes well neurologically she is grossly intact. Objective Data Vital Signs Vital Signs: Vital Signs - 24 hr 02/18/23 14:22 02/18/23 22:00 02/19/23 05:33 Temperature 97.4 F L 98.2 F 97.6 F Pulse Rate 93 68 100 Respiratory Rate 18 16 18 Blood Pressure 113/49 L 130/52 L 125/55 L Pulse Oximetry 94 91 93 Intake/Output Intake/Output: Intake & Output 02/16/23 02/17/23 02/18/23 02/19/23 23:59 23:59 23:59 23:59 Intake Total 1767 300 Output Total 800 Balance 967 300 Meds/Results Medications: Active Medications Generic Name Dose Route Start Last Admin Trade Name Freq PRN Reason Stop Dose Admin Acetaminophen 650 mg 02/17/23 18:54 Acetaminophen 325 Mg Tablet PO Q4H PRN Mild Pain (1-3) or Fever Hydrocodone Bitart/Acetaminophen 1 tab 02/17/23 18:54 02/18/23 20:13 Hydrocodone/Acetaminophen (*Crx) 5-325 Mg Tablet PO 1 tab Q4H PRN Administration Pain Rated 4-6 Albuterol 2 puff 02/17/23 23:58 Albuterol Sulfate (*Sp) Aerosol 1 Puff INHALATION Q4-6H PRN shortness of breath or wheezing Alprazolam 1 mg 02/18/23 21:00 02/18/23 20:11 Alprazolam (*Crx) 0.5 Mg Tablet PO 1 mg QHS HEIDE Administration Amiodarone HCl 100 mg 02/18/23 09:00 02/18/23 08:52 Amiodarone Hcl 100 Mg Tablet PO 100 mg DAILY HEIDE Administration Apixaban 5 mg 02/18/23 09:00 02/18/23 20:13 Apixaban 5 Mg Tablet PO 5 mg Q12HR HEIDE Administration Colestipol HCl 2 gm 02/18/23 09:00 02/18/23 08:50 Colestipol Hcl 1 Gm Tablet PO 2 gm DAILY HEIDE Administration Diltiazem HCl 360 mg 02/18/23 09:00 02/18/23 08:51 Diltiazem Hcl Cd 180 Mg Cap.24hr PO 03/20/23 08:59 360 mg DAILY HEIDE Administration Ondansetron HCl 4 mg 02/17/23 18:54 Ondansetron Inj 4 Mg/2 Ml Vial IV PUSH Q4H PRN Nausea Pravastatin Sodium 40 mg 02/18/23 21:00 02/18/23 20:13 Pravastatin Sodium 20 Mg Tablet PO 40 mg HS HEIDE Administration Sertraline HCl 200 mg 02/18/23 09:00 02/18/23 08:52 Sertraline Hcl 50 Mg Tablet PO 200 mg DAILY HEIDE Administration Radiology Results: ITS Impressions Hip/Pelvis X-Ray 02/17/23 17:09 IMPRESSION: 1. Suggestion of a possible nondisplaced avulsion fracture of the posterior facet of the left greater trochanter involving the footplate of the gluteus medius tendon. Could consider CT for more definitive determination. 2. Fusiform infrarenal abdominal aortic aneurysm measuring approximately 4.[address] 02/17/23 18:01 IMPRESSION: 1. Fracture of greater trochanter of proximal left femur. 2. Moderate left hip osteoarthritis. Labs Labs: Laboratory Results - last 24 hr 02/19/23 07:50 WBC 6.5 RBC 3.20 L Hgb 8.7 L Hct 29.2 L MCV 91.3 MCH 27.2 MCHC 29.8 L RDW 17.8 H Plt Count 213 MPV 9.3 Sodium 138 Potassium 3.8 Chloride 103 Carbon Dioxide 29 Anion Gap 6 L BUN 12 D Creatinine 0.90 Estim Creat Clear Calc 38 Estimated GFR 60 Glucose 105 Calcium 8.6 AMG Follow-up Billing Hospital Follow-up Hospital Follow-up: [id number] [facility]
[2023-02-19 09:35] VITALS: BMI 10.0
[2023-02-19 10:00] VITALS: BMI 10.0
[2023-02-19] MEDS: HYDROcodone/acetaminophen (*CRX) 5-325 MG TABLET 1 TAB PO (10:19)
[2023-02-19 10:28] VITALS: PULSE 120
[2023-02-19] MEDS: AMIODARONE HCL 100 MG TABLET PO (10:28)
[2023-02-19] MEDS: COLESTIPOL HCL 1 GM TABLET 2 GM PO (10:28)
[2023-02-19] MEDS: APIXABAN 5 MG TABLET PO (10:28)
[2023-02-19] MEDS: SERTRALINE HCL 50 MG TABLET 200 MG PO (10:28)
[2023-02-19] MEDS: dilTIAZem HCL CD 180 MG CAP.24HR 360 MG PO (10:29)
[2023-02-19 10:30] VITALS: BP 116/73; PULSE 120; O2SAT 94
--- NOTE | 2023-02-19 12:56 | PM.DS ---
DS: Admitting Diagnosis Discharge Date 02/19/23 Admitting Diagnosis Left hip fracture DS: Discharge Diagnosis Discharge Diagnosis (1) Closed fracture of greater trochanter of femur: Code(s): S72.113A - Displaced fracture of greater trochanter of unspecified femur, initial encounter for closed fracture Status: Acute (2) ANMOL (acute kidney injury): Code(s): N17.9 - Acute kidney failure, unspecified Status: Acute (3) Anemia: Code(s): D64.9 - Anemia, unspecified Status: Chronic DS: Summary Hospital Course Hospital Course: this is a 77-year-old female past medical history of AFib, hypertension, hyperlipidemia, CKD and chronic anticoagulation the present to the ED on 02/17/2023 due to left hip pain. Patient had a fall out home. She is on Eliquis and Plavix. She is found to have a left greater trochanteric fracture. Ortho consulted. Orthopedics recommended nonoperative management. Touch weight-bearing with a walker and follow-up with them in 1-2 weeks. Care coordination consulted for JAIME. patient was accepted. Her labs and vital signs are stable she is medically clear for discharge this time. Time Spent with Patient Time attestation: Total time spent providing and/or coordinating discharge services: Exam Narrative: GENERAL: Comfortable, no acute distress HENMT: moist mucous membranes EYES: EOM intact b/l NECK: no lymphadenopathy RESPIRATORY: clear to auscultation CARDIO: RRR GI: soft, nontender, bowel sounds present SKIN: no rashes EXTREMITIES: no edema, redness or tenderness DS: Data Data Completed and Pending Labs on day of discharge: Labs from last 24 hours 02/19/23 07:50 WBC 6.5 RBC 3.20 L Hgb 8.7 L Hct 29.2 L MCV 91.3 MCH 27.2 MCHC 29.8 L RDW 17.8 H Plt Count 213 MPV 9.3 Sodium 138 Potassium 3.8 Chloride 103 Carbon Dioxide 29 Anion Gap 6 L BUN 12 D Creatinine 0.90 Estim Creat Clear Calc 38 Estimated GFR 60 Glucose 105 Calcium 8.6 Discharge Plan Discharge Attending physician on discharge: Eren Gross Consulting providers: Kwabena Stinson Discharging Clinician: Erica Banerjee Patient Disposition: Inpatient Rehab Facility Activity: as tolerated and other - see discharge instructions Diet: regular Discharge Instructions: Take medications as prescribed Remain active, Touch weight-bearing status with walker. Continue with physical therapy and occupational therapy to improve strength and endurance and returned back to baseline strength Continue with fall precautions, remove rugs within the home, use hand rails when climbing stairs and use assistive devices when needed to ambulate Follow-up with primary care provider within 1-2 weeks Thank you for choosing [facility] for your healthcare needs Patient Instructions: Apixaban (By mouth), Heart Failure (DC), Hip Fracture (GEN), Safe Use of Anticoagulants (DC) Stand Alone Forms: General Discharge Information Follow-up/Referrals: Kwabena Stinson MD [Physician] - Discharge Medications: Continued albuterol sulfate 90 mcg/actuation HFA aerosol inhaler 2 puff inhalation Q4-6H PRN (Reason: shortness of breath or wheezing) 90 Days Qty: 25.5 1RF clopidogrel 75 mg tablet 75 mg PO DAILY diltiazem HCl 360 mg capsule,extended release 24hr 360 mg PO DAILY furosemide 40 mg tablet 60 mg PO DAILY Rx Instructions: Pt states she increased her dose to 60mg on her own pravastatin 40 mg tablet 40 mg PO HS amiodarone [Pacerone] 100 mg tablet 100 mg PO DAILY Eliquis 5 mg tablet 5 mg PO BID sertraline 100 mg tablet 200 mg PO DAILY Qty: 180 1RF alprazolam 1 mg tablet 1 mg PO QHS Qty: 90 0RF ramipril 5 mg capsule 5 mg PO DAILY Qty: 90 1RF colestipol [Colestid] 1 gram tablet 2 g PO DAILY Rx Instructions: TAKE 2 TABLETS (2 GRAMS) DAILY Date of admission:
[2023-02-19 14:00] VITALS: BP 124/75; PULSE 108; RESP 18; TEMP 36.6; O2SAT 96
== END 2023-02-19 15:42 | DRG 536 ==
LOC: ANHED 18:58 → ANH2MED 22:07
PROVIDERS: Student in an Organized Health Care Education/Training Program; Admitting Provider Internal Medicine; Emergency Provider Emergency Medicine; PCP Physician Assistant; Visit Provider Internal Medicine Critical Care Medicine
DX: S72.112A Displaced fracture of greater trochanter of left femur, initial encounter for closed fracture (principal); F41.9 Anxiety disorder, unspecified; I12.9 Hypertensive chronic kidney disease with stage 1 through stage 4 chronic kidney disease, or unspecified chronic kidney disease; N18.30 Chronic kidney disease, stage 3 unspecified; D64.9 Anemia, unspecified; E78.5 Hyperlipidemia, unspecified; I48.0 Paroxysmal atrial fibrillation; W10.8XXA Fall (on) (from) other stairs and steps, initial encounter; Z79.02 Long term (current) use of antithrombotics/antiplatelets; Z79.01 Long term (current) use of anticoagulants; Z90.49 Acquired absence of other specified parts of digestive tract; Z95.5 Presence of coronary angioplasty implant and graft; Z90.710 Acquired absence of both cervix and uterus; Z87.891 Personal history of nicotine dependence
CPT/HCPCS: 36415; 73502; 73700; 80048; 81001; 85025; 85027; 85610; 85730; 87086; 96361; 96374; 97161; 97165; 99285; A9270; G0378; J2270; J7030

== ENCOUNTER 2023-02-21 11:28 | Emergency (ER) | payer OTHER, MEDICARE, BC, SELFPAY ==
--- NOTE | ~2023-02-21 | CT_ITS ---
EXAMINATION: CT brain wo con DATE: 02/21/2023 12:24 INDICATION: Increasing confusion, altered mental state. TECHNIQUE: Computed tomography (CT) of the head was performed without intravenous contrast. The mA wa s adjusted according to patient size. Iterative reconstruction technique was employed. Exam dose: 60 5.33 mGy-cm total exam DLP. COMPARISON: None FINDINGS: Prominent bilateral vertebral basilar and carotid siphon internal carotid artery calcificat ions. There is nonspecific diminished attenuation of the cerebral white matter, likely due to chronic small vessel ischemic changes. There is moderately severe central and cortical cerebral as well as moderate cerebellar atrophy. No intracranial mass lesion or hemorrhage or cerebrovascular accident, midline shift, mass effect or subdural or epidural hematoma is detected. No fracture or bone destruction of the cranial vault. Included paranasal sinuses are unremarkable. There is opacification of some mastoid air cells bilater ally. IMPRESSION: Cerebral atherosclerosis and chronic small vessel ischemic changes of the cerebral white matter Central and cortical cerebral and cerebellar atrophy No acute intracranial finding or skull fracture Reviewed, dictated and finalized at [facility]. Reviewed, dictated and finalized at [facility]. CTOR CREDIT RISK
[2023-02-21 11:33] VITALS: BP 115/48; PULSE 70; RESP 20; TEMP 36.4; O2SAT 93
--- NOTE | 2023-02-21 12:47 | ED.AMS ---
HPI - Altered Mental Status General Chief Complaint: Altered Mental Status Stated Complaint: FELL YESTERDAY, HIT HEAD/ THINNERS Time Seen by Provider: 02/21/23 11:54 History of Present Illness HPI narrative: 77-year-old female present to the emergency department for evaluation of increased confusion this morning. Patient is currently at [place] for a surgical hip fracture. Patient did do PT OT today but nursing felt that she was confused compared to her baseline. Upon arrival to the ED patient is alert and oriented. Related Data Home Medications Medication Instructions Recorded Confirmed amiodarone 100 mg tablet (Pacerone) 100 mg PO DAILY 08/07/20 02/19/23 apixaban 5 mg tablet (Eliquis) 5 mg PO BID 08/07/20 02/19/23 furosemide 40 mg tablet 60 mg PO DAILY 08/07/20 02/19/23 pravastatin 40 mg tablet 40 mg PO HS 08/07/20 02/19/23 clopidogrel 75 mg tablet 75 mg PO DAILY 02/03/23 02/19/23 diltiazem HCl 360 mg 360 mg PO DAILY 02/03/23 02/19/23 capsule,extended release 24 hr colestipol 1 gram tablet (Colestid) 2 g PO DAILY 02/05/23 02/19/23 Allergies Allergy/AdvReac Type Severity Reaction Status Date / Time Penicillins AdvReac Intermediate yeast Verified 02/21/23 11:39 infection Review of Systems Review of Systems: All systems reviewed & are unremarkable except as noted in HPI and below PMFSH Past Medical History Medical History Anxiety Chronic anticoagulation Chronic kidney disease, stage 3 Compression fracture of body of thoracic vertebra Hyperlipidemia Hypertension Paroxysmal atrial fibrillation Surgical History Surgical History History of appendectomy History of cardiac catheterization History of cholecystectomy History of coronary artery stent placement History of hysterectomy History of partial colectomy History of tonsillectomy Family History Family History Father Family history of emphysema Patient's father is Mother Patient's mother is Family history of chronic obstructive pulmonary disease Social History Social History Smoking packs per day: 1 Smoking cigarettes per day: 20.0 Years smoked: 50 Smoking pack-years: 50.00 Smoking status: Former smoker Tobacco type: cigarettes Second hand tobacco smoke exposure: No Smoking end date: 01/24/23 Alcohol intake: unknown Drinks per week: 0 Substance use: never Substance use type: does not use Lack of Transportation: No Lack of Food: Never True Current Housing: I Have Housing Concerned About Future Housing: No Difficulty Paying Gas/Electric Bills: No Difficulty Paying for Meds: No Currently Unemployed: No Education: Bachelor's Degree Difficulty w/ Childcare or Family Care: No Spiritual care concerns: Yes Exam Narrative: APPEARANCE: Well appearing, no pain, no distress, well-nourished. HEAD: normocephalic, atraumatic. EYES: PERRLA/EOMI, conjunctivae clear. NOSE: Normal no drainage NECK: Supple. No adenopathy, no masses. RESPIRATORY: Airway patent, respirations nonlabored. Clear to auscultation bilaterally, no rales, rhonchi, wheezing. CARDIOVASCULAR: Regular rate and rhythm without murmurs rubs or gallops. ABDOMINAL: Soft, nontender, nondistended, normal bowel sounds MUSCULOSKELETAL: Moves all extremities. Strength/ROM intact, No edema, No calf tenderness. NEURO: Alert. Cranial nerves II through XII intact. Grossly intact SKIN: Warm, dry. Normal Color Course Course Emergency Course: 77-year-old female present emergency department for evaluation of increased confusion. Head CT was negative for acute intracranial abnormality. UA was concerning for urinary tract infection. Patient was started on antibiotics in the emergency department. Discu
[2023-02-21 12:48] VITALS: O2SAT 93
[2023-02-21 12:52] LABS: Basophils Percent Auto 0.3 % (0.2-1.2); Eosinophils Absolute Auto 0.3 K/mm3 (0-0.3); Eosinophils Percent Auto 4.3 % (0-4.4); Hematocrit 31.1 % (37.0-47.0); Hemoglobin 9.2 g/dL (12.0-15.0); Immature Granulocyte Absolute 0.04 K/mm3 (0.00-0.031); Immature Granulocyte Percent A 0.6 % (0-0.5); Lymphocytes Absolute Auto 1.18 K/mm3 (0.9-3.2); Lymphocytes Percent Auto 18.2 % (18.3-44.2); Mean Corpuscular HGB Conc 29.6 g/dl (32-36); Mean Corpuscular Hemoglobin 27.4 pg (26-34); Mean Corpuscular Volume 92.6 fl (80-100); Mean Platelet Volume 9.2 fl (7.4-10.4); Monocytes Absolute Auto 0.9 K/mm3 (0.1-0.6); Monocytes Percent Auto 13.2 % (2.6-8.5); Neutrophils Absolute Auto 4.1 K/mm3 (1.3-6.7); Neutrophils Percent Auto 63.4 % (45.5-73.1); Platelet Count Result 246 k/mm3 (150-375); Red Blood Count 3.36 M/mm3 (4.2-5.4); Red Cell Distribution Width 17.9 % (11.5-14.5); White Blood Count 6.5 K/mm3 (4.5-10.0)
[2023-02-21 13:01] LABS: Anion Gap 10 mmol/L (8-16); Blood Urea Nitrogen 19 mg/dL (7-17); Calcium 9.1 mg/dL (8.4-10.2); Carbon Dioxide 26 mmol/L (22-30); Chloride 102 mmol/L (98-107); Estimated CRCL calculation 27 ml/min; Estimated Glomerular Filt Rate 33; Glucose 123 mg/dL (65-110); Lactic Acid Reflex 1.1 mmol/L (0.7-2.0); Platelet Estimate Adequate (Adequate); Potassium 3.8 mmol/L (3.4-5.0); Sodium 138 mmol/L (137-145)
[2023-02-21 13:02] LABS: Anisocytosis 1+ (NORMAL); Schistocytes None Seen (NORMAL)
[2023-02-21 13:08] LABS: INR 1.7; Partial Thromboplastin Time 45.3 SECONDS (22.3-36.8); Prothrombin Time 21.1 Seconds (11.1-14.7)
[2023-02-21] MEDS: SODIUM CHLORIDE 0.9% IV 500 ML 999 ML IV CONT (13:10)
[2023-02-21 13:22] LABS: Appearance Urine Cloudy (Clear); Bacteria Urine 4+ /hpf; Bilirubin Urine Negative (Negative); Blood Urine Negative (Negative); Budding Yeast Urine Present /hpf; Calcium Oxalate Crystals Urine Present /hpf; Color Urine Yellow (Yellow); Glucose Urine UA Negative (Negative); Hyaline Casts Urine Present /lpf; Ketones Urine Negative (Negative); Leukocyte Esterase Ur 1+ LEU/UL (Negative); Need Manual Microscopic Reviewed; Nitrate Urine Negative (Negative); Non Pathogenic Casts >20; Protein Urine Negative (Negative); Specific Grav Ur 1.015 (1.001-1.035); Squamous Epithelial Cell Urine Many /hpf (Few); Urobilinogen Urine 0.2 mg/dL (<2.0)
[2023-02-21 13:23] LABS: Add Urine Microscopic? YES
[2023-02-21 13:28] LABS: Influenza A QL RT-PCR Negative (Negative); Influenza B QL RT-PCR Negative (Negative); RSV RNA, RT-PCR Negative (Negative); SARS-CoV-2 RNA PCR Negative (Negative)
--- NOTE | 2023-02-21 13:51 | ECG_ITS ---
Measurements Intervals [place] Rate: 89 P: [place]: 0 QRS: 59 QRSD: 102 T: -42 QT: 294 QTc: 358 Interpretive Statements ATRIAL FIBRILLATION LOW QRS VOLTAGE IN LIMB LEADS CANNOT RULE OUT SEPTAL INFARCT, AGE INDETERMINATE BORDERLINE ST-T WAVE ABNORMALITY- INF/HIGH LAT LEADS BASELINE ARTIFACT- I, II, III, AVR ABNORMAL ECG COMPARED TO ECG 01/24/2023 11:30:14 ATRIAL FIBRILLATION NOW PRESENT Electronically Signed On 02-21-2023 14:10:56 [employer]PERATOR by Osvaldo Welch D.O.
[2023-02-21 14:59] VITALS: BP 117/52; PULSE 82; RESP 20; O2SAT 94
== END 2023-02-21 15:50 ==
PROVIDERS: Emergency Provider Emergency Medicine; PCP Physician Assistant
DX: N39.0 Urinary tract infection, site not specified (principal); R41.82 Altered mental status, unspecified; Z11.52 Encounter for screening for COVID-19; S72.002D Fracture of unspecified part of neck of left femur, subsequent encounter for closed fracture with routine healing; X58.XXXD Exposure to other specified factors, subsequent encounter; I12.9 Hypertensive chronic kidney disease with stage 1 through stage 4 chronic kidney disease, or unspecified chronic kidney disease; N18.30 Chronic kidney disease, stage 3 unspecified; E78.5 Hyperlipidemia, unspecified; I48.0 Paroxysmal atrial fibrillation; Z95.5 Presence of coronary angioplasty implant and graft; Z90.49 Acquired absence of other specified parts of digestive tract; Z90.710 Acquired absence of both cervix and uterus; Z79.01 Long term (current) use of anticoagulants; Z79.02 Long term (current) use of antithrombotics/antiplatelets; I67.2 Cerebral atherosclerosis; R94.31 Abnormal electrocardiogram [ECG] [EKG]
CPT/HCPCS: 36415; 70450; 80048; 81001; 83605; 85025; 85610; 85730; 87086; 87637; 93005; 96361; 96365; 99284; J0696; J7040

== ENCOUNTER 2023-03-16 09:04 | Inpatient (IN) | payer MEDICARE, BC, SELFPAY ==
[2023-03-16] VITALS (65 sets, daily range): BP systolic 98–133; BP diastolic 50–98; PULSE 0–134; RESP 15–40; TEMP 36.2–36.8; O2SAT 58–98; BMI 26.6; BMI 27.2
--- NOTE | ~2023-03-16 | XR_ITS ---
Clinical Indication: Pneumonia AP and lateral views of the chest: Comparison: 04/09/2023 Findings: There is hazy bibasilar airspace disease. Probable small bilateral pleural effusions.. Car diomediastinal silhouette is within normal limits. There is compression deformity midthoracic vertebr al body, likely T8. Impression: Probable mild bibasilar pulmonary edema small bilateral pleural effusions. Correlate clinically for p neumonia. Compression fracture of what is likely T8. Reviewed, dictated and finalized at location M. ER POWDER BLENDER WET Impression: Probable mild bibasilar pulmonary edema small bilateral pleural effusions. Tawanda elate clinically for pneumonia. Compression fracture of what is likely T8.
--- NOTE | ~2023-03-16 | XR_ITS ---
EXAMINATION: XR chest 1V portable DATE: 04/09/2023 05:34 INDICATION: Pleural effusions. TECHNIQUE: A single frontal view of the chest was obtained. COMPARISON: Chest single view 04/08/2023, chest CT 03/30/2023 FINDINGS: There is a diffuse interstitial pattern in the lungs. There are airspace opacities in right mid and lower lung zones and left lower lung zone. There are small pleural effusions. No pneumothora x. Cardiomegaly is noted. IMPRESSION: 1. Stable diffuse lung disease, consistent with pulmonary edema versus pneumonia. 2. Stable small pleural effusions. 3. Cardiomegaly. Reviewed, dictated and finalized at location A. UTER SYSTEMS DESIGNER IMPRESSION: 1. Stable diffuse lung disease, consistent with pulmonary edema versus pneumoni a. 2. Stable small pleural effusions. 3. Cardiomegaly.
--- NOTE | ~2023-03-16 | XR_ITS ---
EXAMINATION: XR chest 1V portable DATE: 04/05/2023 07:48 INDICATION: Pleural effusions. TECHNIQUE: A single frontal view of the chest was obtained. COMPARISON: Chest single view 04/02/2023, chest CT 03/30/2023 FINDINGS: There is a diffuse interstitial pattern in the lungs. There are small pleural effusions. Th ere are airspace opacities in the mid and lower lung zones with a basilar predominance. No pneumothor ax. Cardiomegaly is noted. IMPRESSION: 1. Diffuse lung disease with worsening at left lung base, likely moderate pulmonary edema and basilar atelectasis superimposed on emphysema. 2. Small pleural effusions with worsening on the left. 3. Cardiomegaly. Reviewed, dictated and finalized at location E. SHAPER SET UP OPERATOR IMPRESSION: 1. Diffuse lung disease with worsening at left lung base, likely moderate pulmo nary edema and basilar atelectasis superimposed on emphysema. 2. Small pleural effusions with worsening on the left. 3. Cardiomegaly.
--- NOTE | ~2023-03-16 | US_ITS ---
EXAMINATION: US thoracentesis DATE: 04/08/2023 INDICATION: pleural effusion TECHNIQUE: The skin was prepped and draped in sterile fashion. 1% lidocaine was used for local anesth esia. Under ultrasound guidance, a 5 Fr catheter with trochar was advanced into the right pleural eff usion. Fluid was aspirated. The catheter was removed, and a dressing was applied. There were no immed iate complications. FINDINGS: Ultrasound images demonstrate a right pleural effusion and the catheter within the fluid. IMPRESSION: 1. Successful ultrasound-guided thoracentesis yielding 400 mL of serosanguineous fluid. Reviewed, dictated and finalized at location A. NG MACHINE REPAIRER IMPRESSION: 1. Successful ultrasound-guided thoracentesis yielding 400 mL of serosanguineo us fluid.
--- NOTE | ~2023-03-16 | XR_ITS ---
XR chest 1V portable 03/17/2023 09:41 Indication: Shortness of breath Procedure: AP portable chest Comparison: Comparison to multiple prior studies sequentially, with oldest reviewed study dated 01/09. Findings: Significant progression of diffuse bilateral airspace disease. Heart size normal. Small rig ht pleural effusion. Impression: 1: Interval progression of bilateral airspace disease which may represent edema and/or pneumonia. Reviewed, dictated and finalized at location L. TRICAL MAINTENANCE ENGINEER Impression: 1: Interval progression of bilateral airspace disease which may represent edema and/or pneumonia.
--- NOTE | ~2023-03-16 | XR_ITS ---
XR chest 1V portable 03/16/2023 10:06 Indication: Shortness of breath Procedure: AP portable chest Comparison: Comparison to multiple prior studies sequentially, with oldest reviewed study dated 08/07. Findings: Cardiomegaly. There is pulmonary edema. Small right pleural effusion. No pneumothorax. No a cute osseous abnormality. Impression: 1: Cardiomegaly with pulmonary edema. Reviewed, dictated and finalized at location B. Y ADJUSTER Impression: 1: Cardiomegaly with pulmonary edema.
--- NOTE | ~2023-03-16 | XR_ITS ---
EXAMINATION: XR chest 1V portable DATE: 03/22/2023 10:33 INDICATION: Pneumonia. TECHNIQUE: A single frontal view of the chest was obtained. COMPARISON: Chest single view 03/21/2023 FINDINGS: There is elevation of left hemidiaphragm with prominence of the left hilar region, likely l eft upper lobe collapse. There are airspace opacities in right mid and lower lung zones and left lowe r lung zone. There is a diffuse interstitial pattern in the lungs. There is a small right pleural eff usion. No pneumothorax. The heart size is normal. IMPRESSION: 1. Stable diffuse lung disease, consistent with pneumonia versus pulmonary edema and atelectasis supe rimposed on emphysema. 2. Left upper lobe collapse. 3. Small right pleural effusion. Reviewed, dictated and finalized at location A. TY THERAPIST IMPRESSION: 1. Stable diffuse lung disease, consistent with pneumonia versus pulmonary hood a and atelectasis superimposed on emphysema. 2. Left upper lobe collapse. 3. Small right pleural effusion.
--- NOTE | ~2023-03-16 | XR_ITS ---
Portable chest x-ray Comparison: 03/22/2023 Clinical History: Covid, atelectasis Findings: Right perihilar airspace disease is present. There is minimal bibasilar haziness. Probable underlying COPD. Cardiomediastinal silhouette is stable. Bones and soft tissues are unremarkable. Impression: Right perihilar airspace disease could reflect pneumonia or atelectasis. Probable minimal right pleural effusion. Underlying COPD. Reviewed, dictated and finalized at [facility]. ERY TEACHER Impression: Right perihilar airspace disease could reflect pneumonia or atelectasis. Probable minimal right pleural effusion. Underlying COPD.
--- NOTE | ~2023-03-16 | XR_ITS ---
EXAMINATION: XR chest 1V portable DATE: 03/21/2023 09:55 INDICATION: Hypoxia. COVID-19 pneumonia. TECHNIQUE: A single frontal view of the chest was obtained. COMPARISON: Chest single view 03/18/2023, chest CT 07/20/2022 FINDINGS: There are airspace and interstitial opacities in the mid and lower lung zones, right worse than left. There is a small right pleural effusion. No pneumothorax. The heart size is normal. Main p ulmonary artery is enlarged, consistent with pulmonary arterial hypertension. IMPRESSION: 1. Airspace and interstitial opacities in the mid and lower lung zones with mild improvement, consist ent with pneumonia versus pulmonary edema and atelectasis superimposed on emphysema. 2. Small right pleural effusion. Reviewed, dictated and finalized at location A. E DESIGNER IMPRESSION: 1. Airspace and interstitial opacities in the mid and lower lung zones with mil d improvement, consistent with pneumonia versus pulmonary edema and atelectasis superimposed on emphysema. 2. Small right pleural effusion.
--- NOTE | ~2023-03-16 | XR_ITS ---
EXAMINATION: XR chest 1V portable DATE: 04/08/2023 05:57 INDICATION: Pleural effusions. TECHNIQUE: A single frontal view of the chest was obtained. COMPARISON: Chest single view 04/05/2023 FINDINGS: There is a diffuse interstitial pattern in the lungs. There are airspace opacities at left lung base. There are small pleural effusions. No pneumothorax. Cardiomegaly is noted. IMPRESSION: 1. Diffuse lung disease with slight improvement, likely moderate pulmonary edema. 2. Improved small pleural effusions. 3. Cardiomegaly. Reviewed, dictated and finalized at location A. ER AND PLASTICS WORKER IMPRESSION: 1. Diffuse lung disease with slight improvement, likely moderate pulmonary hood a. 2. Improved small pleural effusions. 3. Cardiomegaly.
--- NOTE | ~2023-03-16 | CT_ITS ---
EXAMINATION:CT diagnostic chest wo con DATE: 03/30/2023 18:44 INDICATION: Lung lobar collapse. COVID-19. TECHNIQUE: Computed tomography (CT) of the chest was performed without intravenous contrast. Automate d exposure control and iterative reconstruction technique were employed. The dose-length product (DLP ) was 172.26 mGy-cm. COMPARISON: Chest CT 03/23/2023, 07/20/2022 FINDINGS: There is moderate emphysema. There is mild atelectasis bilaterally with a dependent predomi nance. There is smooth septal thickening in the lungs, consistent with mild pulmonary edema. There ar e small pleural effusions. There is calcified atherosclerosis of the aorta and many of the other sena stormy. Cardiomegaly is noted. There are coronary artery calcifications. No pericardial effusion. There is mild mediastinal lymphadenopathy, likely reactive. There is a right breast implant. Calcification s in the spleen are consistent with old granulomatous disease. There is cortical thinning of left kid sobia. There are changes of cholecystectomy. IMPRESSION: 1. Mild pulmonary edema. 2. Mild atelectasis in the lungs with interval improvement. 3. Moderate emphysema. 4. Small pleural effusions. Reviewed, dictated and finalized at location E. BAKER
--- NOTE | ~2023-03-16 | XR_ITS ---
Portable chest x-ray Comparison: 03/17/2023 Clinical History: Covid Findings: Bibasilar hazy airspace disease with mild diffuse interstitial prominence is present. Ther e is more confluent left lower lobe consolidation. Small left pleural effusion present with minimal r ight pleural effusion. Suggestion of more confluent ovoid density at the medial right lung apex. Card iomediastinal silhouette is stable. Bones and soft tissues are unremarkable. Impression: Hazy bibasilar airspace disease and more confluent left basilar consolidation, as well as diffuse int erstitial prominence. Correlate for pulmonary edema and atelectatic change versus infection. Small left pleural effusion and minimal right pleural effusion. Suggestion of more confluent ovoid density the medial right lung apex, nonspecific. Continued follow- up advised. Reviewed, dictated and finalized at [facility]. [employer] Impression: Hazy bibasilar airspace disease and more confluent left basilar consolidation, as well as diffuse interstitial prominence. Correlate for pulmonary edema and a telectatic change versus infection. Small left pleural effusion and minimal right pleural effusion. Suggestion of more confluent ovoid density the medial right lung apex, nonspeci fic. Continued follow-up advised.
--- NOTE | ~2023-03-16 | CT_ITS ---
EXAMINATION: CTA chest PE protocol DATE: 03/23/2023 14:04 INDICATION: Shortness of breath TECHNIQUE: Computed tomography angiography (CTA) of the chest was performed with 100 mL Omnipaque-350 intravenous contrast timed to evaluate the pulmonary arteries. Coronal maximum intensity projection 3D-reconstructions were created by the technologist. The dose-length product (DLP) was 259.32 mGy-cm. Automated exposure control and iterative reconstruction technique were employed. COMPARISON: 07/20/2022 FINDINGS: The pulmonary arteries are well-opacified. No pulmonary embolism is identified. There are m oderate-sized right and small left pleural effusions. There is complete left upper lobe collapse due to mucous plugging. There is also complete atelectasis of the right middle lobe. There is intralobula r septal thickening with groundglass opacity with a right lung predominance. There is dependent atele ctasis of the left lower lobe. There is a right breast implant. There is mild bilateral hilar and med iastinal lymphadenopathy, likely reactive. No pneumothorax is identified. Punctate calcifications in an otherwise normal spleen likely represent healed granulomatous disease. Changes of cholecystectomy are noted. There is moderate thoracic spondylosis. A chronic T8 compression fracture is noted. IMPRESSION: 1. No pulmonary embolus. 2. Left upper lobe collapse related to mucous plugging 3. Complete atelectasis of the right middle lobe. 4. Moderate size right and small left pleural effusions. 5. Findings consistent with asymmetric edema of the right upper lobe. Reviewed, dictated and finalized at location B. CH ENGINEER
--- NOTE | ~2023-03-16 | XR_ITS ---
EXAMINATION: [id number]_CR DATE: 04/08/2023 10:46 INDICATION: Right pleural effusion status post thoracentesis. TECHNIQUE: A single frontal view of the chest was obtained. COMPARISON: Chest single view 04/08/2023 FINDINGS: There is a diffuse interstitial pattern in the lungs, consistent mild pulmonary edema. Ther e are airspace opacities at the lung bases with worsening on the left, likely atelectasis. There are small pleural effusions. No pneumothorax. Cardiomegaly is noted. IMPRESSION: 1. Mild pulmonary edema. 2. Small pleural effusions. 3. Cardiomegaly. Reviewed, dictated and finalized at location A. TY GENERAL COUNSEL
--- NOTE | ~2023-03-16 | XR_ITS ---
Portable chest x-ray Comparison: 03/26/2023 Clinical History: Covid Findings: There is hazy airspace opacity at the right midlung, with mild diffuse interstitial promin ence. Probable minimal right pleural effusion. Cardiomediastinal silhouette is stable. Bones and sof t tissues are unremarkable. Impression: Hazy right midlung airspace opacity could reflect pneumonia versus pulmonary edema/atelectasis. Minimal right pleural effusion. Interstitial prominence is probably related to COPD or other chronic interstitial disease. Reviewed, dictated and finalized at [facility]. HATCHERY LABORER Impression: Hazy right midlung airspace opacity could reflect pneumonia versus pulmonary ed estela/atelectasis. Minimal right pleural effusion. Interstitial prominence is probably related to COPD or other chronic interstiti al disease.
--- NOTE | ~2023-03-16 | XR_ITS ---
XR chest 1V portable 03/26/2023 10:35 Indication: Covid. Procedure: AP portable chest Comparison: Comparison to multiple prior studies sequentially, with oldest reviewed study dated 03/11. Findings: Progression of diffuse bilateral airspace disease. Bilateral pleural effusions. No pneumoth orax. Cardiomegaly. Impression: 1: Interval progression of bilateral airspace disease which may represent pneumonia or edema. 2: Small pleural effusions. Reviewed, dictated and finalized at location A. CCU Impression: 1: Interval progression of bilateral airspace disease which may represent pneum onia or edema. 2: Small pleural effusions.
--- NOTE | ~2023-03-16 | XR_ITS ---
XR chest 1V portable 04/02/2023 17:02 Indication: Dyspnea. Increased oxygen demands. Procedure: AP portable chest Comparison: Comparison to multiple prior studies sequentially, with oldest reviewed study dated 03/11. Findings: Cardiomegaly. Significant progression of diffuse bilateral airspace disease, compatible wit h edema. Small pleural effusions. No pneumothorax. Impression: 1: Cardiomegaly with progression of pulmonary edema. Reviewed, dictated and finalized at location A. IFIED PARALEGAL Impression: 1: Cardiomegaly with progression of pulmonary edema.
--- NOTE | 2023-03-16 09:21 | ED.SOB ---
HPI - SOB/Dyspnea General Chief Complaint: Shortness of Breath/Dyspnea <Nannette Donahue PA-C - Last Filed: 03/16/23 19:41> Stated Complaint: SOB <Nannette Donahue PA-C - Last Filed: 03/16/23 19:41> Source: patient, family, old records reviewed and other (PCP) <Nannette Donahue PA-C - Last Filed: 03/16/23 19:41> Mode of arrival: EMS <Nannette Donahue PA-C - Last Filed: 03/16/23 19:41> Limitations: no limitations <PADMINI Shah Last Filed: 03/16/23 19:41> History of Present Illness HPI Narrative: Patient is a 77 y/o female, with PMH of COPD, AFIB systemically anticoagulated on Eliquis, anemia, who presents to the ED via EMS with report of SOB. Patient is currently residing at [facility] after sustaining a hip fx that was determined to be inoperable. She has been seen at our ED a few times over the last 2 months and been treated for pneumonia and UTI. Per PCP, he believes patient is still on cefdinir. Patient reports her breathing has progressively worsened over the last couple days, significantly worse yesterday. She states she refused the senior care staff to send her to the hospital yesterday. Denies any chest pain. Denies fevers. Reports some lower extremity swelling. Reports dry cough. Patient has current o2 requirement, on 3L at facility. <Nannette Donahue PA-C - Last Filed: 03/16/23 19:41> Related Data Home Medications: Home Medications Medication Instructions Recorded Confirmed amiodarone 100 mg tablet (Pacerone) 100 mg PO DAILY 08/07/20 03/16/23 apixaban 5 mg tablet (Eliquis) 5 mg PO BID 08/07/20 03/16/23 furosemide 40 mg tablet 60 mg PO DAILY 08/07/20 03/16/23 pravastatin 40 mg tablet 40 mg PO HS 08/07/20 03/16/23 clopidogrel 75 mg tablet 75 mg PO DAILY 02/03/23 03/16/23 diltiazem HCl 360 mg 360 mg PO DAILY 02/03/23 03/16/23 capsule,extended release 24 hr colestipol 1 gram tablet (Colestid) 2 g PO DAILY 02/05/23 03/16/23 <PADMINI Shah Last Filed: 03/16/23 19:41> Allergies/Adverse Reactions: Allergies Allergy/AdvReac Type Severity Reaction Status Date / Time Penicillins AdvReac Intermediate yeast Verified 02/21/23 11:39 infection <PADMINI Shah Last Filed: 03/16/23 19:41> Review of Systems Review of Systems: CONSTITUTIONAL: Denies fever, chills, or sweats. ENT: Denies rhinorrhea, congestion, sore throat. CARDIOVASCULAR: See HPI. RESPIRATORY: See HPI. GASTROINTESTINAL: Denies abdominal pain, nausea, vomiting, or diarrhea. <PADMINI Shah Last Filed: 03/16/23 19:41> All systems reviewed & are unremarkable except as noted in HPI and below <PADMINI Shah Last Filed: 03/16/23 19:41> [facility] Past Medical History Medical History: Medical History Anxiety Chronic anticoagulation Chronic kidney disease, stage 3 Compression fracture of body of thoracic vertebra Hyperlipidemia Hypertension Paroxysmal atrial fibrillation Trochanteric fracture <PADMINI Shah Last Filed: 03/16/23 19:41> Surgical History Surgical History: Surgical History History of appendectomy History of cardiac catheterization History of cholecystectomy History of coronary artery stent placement History of hysterectomy History of partial colectomy History of tonsillectomy <PADMINI Shah Last Filed: 03/16/23 19:41> Family History Family History: Family History Father Family history of emphysema Patient's father is Mother Patient's mother is Family history of chronic obstructive pulmonary disease <PADMINI Shah Last Filed: 03/16/23 19:41> Social History Social History: Social History (Reviewed 03/17/23 @ 0
--- NOTE | 2023-03-16 09:22 | ECG_ITS ---
Measurements Intervals [place] Rate: 110 P: [place]: 0 QRS: 86 QRSD: 96 T: 92 QT: 332 QTc: 450 Interpretive Statements ATRIAL FIBRILLATION WITH RAPID VENTRICULAR RESPONSE LOW QRS VOLTAGE IN EXTREMITY LEADS [QRS DEFLECTION < 0.5 mV IN LIMB LEADS] CANNOT RULE OUT OLD sEPTAL MYOCARDIAL INFARCTION NONSPECIFIC ST-T CHANGES BASELINE ARTIFACT COMPARED TO ECG 02/21/2023 13:55:55 NO SIGNIFICANT CHANGES Electronically Signed On 03-16-2023 12:08:55 GEODESIST by Divine Parada M.D.
[2023-03-16 09:34] LABS: Basophils Percent Auto 0.3 % (0.2-1.2); Eosinophils Absolute Auto 0.1 K/mm3 (0-0.3); Eosinophils Percent Auto 0.7 % (0-4.4); Hematocrit 27.1 % (37.0-47.0); Hemoglobin 7.8 g/dL (12.0-15.0); Immature Granulocyte Absolute 0.03 K/mm3 (0.00-0.031); Immature Granulocyte Percent A 0.3 % (0-0.5); Lymphocytes Absolute Auto 0.67 K/mm3 (0.9-3.2); Lymphocytes Percent Auto 6.9 % (18.3-44.2); Mean Corpuscular HGB Conc 28.8 g/dl (32-36); Mean Corpuscular Hemoglobin 25.8 pg (26-34); Mean Corpuscular Volume 89.7 fl (80-100); Mean Platelet Volume 9.2 fl (7.4-10.4); Monocytes Absolute Auto 0.6 K/mm3 (0.1-0.6); Monocytes Percent Auto 6.2 % (2.6-8.5); Neutrophils Absolute Auto 8.3 K/mm3 (1.3-6.7); Neutrophils Percent Auto 85.6 % (45.5-73.1); Platelet Count Result 232 k/mm3 (150-375); Red Blood Count 3.02 M/mm3 (4.2-5.4); Red Cell Distribution Width 16.9 % (11.5-14.5); White Blood Count 9.7 K/mm3 (4.5-10.0)
[2023-03-16] MEDS: LEVALBUTEROL NEB 1.25 MG/3 ML 2.5 MG INHALATION (09:35)
[2023-03-16] MEDS: IPRATROPIUM BR 0.02% INH SOLN 0.5 MG/2.5 ML VIAL 1.5 MG INHALATION (09:35)
[2023-03-16 09:45] LABS: INR 1.4; Partial Thromboplastin Time 39.9 SECONDS (22.3-36.8); Prothrombin Time 18.1 Seconds (11.1-14.7)
[2023-03-16 09:46] LABS: Alanine Aminotransferase 12 U/L (6-35); Albumin Level 3.7 g/dL (3.5-5.1); Alkaline Phosphatase 105 U/L (38-126); Anion Gap 8 mmol/L (8-16); Aspartate Amino Transferase 23 U/L (14-36); Bilirubin,Total 0.6 mg/dL (0.2-1.3); Blood Urea Nitrogen 14 mg/dL (7-17); Carbon Dioxide 29 mmol/L (22-30); Chloride 103 mmol/L (98-107); Estimated CRCL calculation 43 ml/min; Estimated Glomerular Filt Rate 60; Glucose 133 mg/dL (65-110); Magnesium 1.8 mg/dL (1.6-2.3); Potassium 3.4 mmol/L (3.4-5.0); Sodium 140 mmol/L (137-145)
[2023-03-16] MEDS: METOPROLOL TARTRATE INJ 5 MG/5 ML VIAL IV PUSH (09:48)
[2023-03-16 09:54] LABS: Alveolar/Arterial O2 Gradient 264.9 mmHg; Base Excess ABG -0.9 mEq/l (+/-2.0); Carboxyhemoglobin 1.5 % THb (0-2.0); Fractional Inspired Oxygen 56 %; HCO3 ABG 23.6 mEq/l (22.0-26.0); Oxygen Content ABG 12.5 %vol (16.0-22.0); Oxygen Saturation ABG 97.1 % (95.0-100.0); Oxyhemoglobin 94.4 % THb (90.0-100.0); PCO2 ABG 38.3 mmHg (35.0-45.0); PO2 ABG 91.9 mmHg (80.0-100.0); PO2 FiO2 Ratio Arterial Blood 1.64 %; Reduced Hemoglobin 4.1 %THb (0-5.0); Total Hemoglobin 9.3 g/dL (12.0-18.0); pH ABG 7.407 (7.350-7.450)
[2023-03-16 09:56] LABS: NT Pro B Type Natriuretic Pept 1210 pg/mL (19.9-100); Troponin I < 0.012 ng/mL (0.000-0.034)
[2023-03-16 09:57] LABS: Modified Allen's Test Pass; Site Drawn LEFT RADIAL
[2023-03-16 09:58] LABS: Device OTHER DEVICE
[2023-03-16 10:11] LABS: Influenza A QL RT-PCR Negative (Negative); Influenza B QL RT-PCR Negative (Negative); RSV RNA, RT-PCR Negative (Negative); SARS-CoV-2 RNA PCR Positive (Negative)
[2023-03-16 10:32] LABS: Appearance Urine Clear (Clear); Bacteria Urine None Seen /hpf; Bilirubin Urine Negative (Negative); Blood Urine Negative (Negative); Color Urine Yellow (Yellow); Glucose Urine UA Negative (Negative); Ketones Urine Trace mg/dL (Negative); Leukocyte Esterase Ur Negative LEU/UL (Negative); Nitrate Urine Negative (Negative); Non Pathogenic Casts 0-2; Protein Urine 1+ mg/dL (Negative); RBC Urine 0-2 /hpf (0-2); Specific Grav Ur 1.023 (1.001-1.035); Squamous Epithelial Cell Urine None seen /hpf (Few); Urobilinogen Urine 0.2 mg/dL (<2.0); WBC Urine 0-5 /hpf
[2023-03-16 10:35] LABS: Add Urine Microscopic? YES
--- NOTE | 2023-03-16 11:07 | PCRCNOTE ---
Per MD and RT consult, we decided to place this pt on Airvo first before placing the bipap. Pt was having a low SpO2 level problem, RT placed pt on Airvo settings of 45L 50% due to a history of COPD.
[2023-03-16 12:04] LABS: Procalcitonin 0.1 ng/mL
[2023-03-16] MEDS: dilTIAZem HCl INJ 25 MG/5 ML VIAL 10 MG IV PUSH (12:15)
[2023-03-16 12:47] LABS: Troponin I < 0.012 ng/mL (0.000-0.034)
--- NOTE | 2023-03-16 15:01 | PC.NURSE ---
Pt called out stating she was having a hard time breathing, SPO@ 56% upon arrival to room, pt on room air. Pt not wearing oxygen, oxygen replaced, spo2 to 77%. Pt back to 93% at 1503. Pt educated on importance of air supplement, verbalized understanding of information provided.
[2023-03-16 16:17] LABS: Troponin I < 0.012 ng/mL (0.000-0.034)
--- NOTE | 2023-03-16 17:49 | PC.NURSE ---
This patient, Maria Dolores Boles, was admitted to IMU Room 214-01at 1515. Patient/family oriented to hospital policies and general routines including ID bracelet, bed and alarms, visiting hours, pain management, procedures, bathroom and other care routines, personal items, smoking policy, room service/diet, and visiting hours. Information on how to activate the Rapid Response Team has been discussed. Patient/Family are encouraged to report perceived risks to care and to ask questions if they do not understand what they are told or what they should do.
--- NOTE | 2023-03-16 21:44 | PM.IMHP ---
H&P: HPI History of Present Illness Date/Time: 03/16/23 21:44 Chief Complaint: Cough, SOB Narrative: 77 y/o F presents here with cough and SOB with PMH of pA-Fib (on anticoagulation), COPD, CKD (3), recent trochanteric fx, HTN, and HLD. S patient reports that for the last 3 days she has been experiencing a severe dry cough, headache affecting top of head, and SOB. Patient reports that the shortness of breath has worsened to the point of limiting her act to VD, already limited due to recent fracture. Does note that rest alleviates the shortness of breath. Associated anxiety with the increase in shortness of breath. Denies fever or body aches. Reportedly tested for COVID at current facility, [place], and was negative. Viral PCR done today showed COVID+. CXR did not demonstrate pneumonia, did show mild pulmonary edema. EKG shows recurrent AFib. Lab work significant for anemia - hgb of 7.8 and BNP 1,210. No prior history of anemia according to patient and her daughter. Review of Systems Review of Systems: All systems reviewed & are unremarkable except as noted in HPI and below PMFSH Past Medical History Medical History Anxiety Chronic anticoagulation Chronic kidney disease, stage 3 Compression fracture of body of thoracic vertebra Hyperlipidemia Hypertension Paroxysmal atrial fibrillation Trochanteric fracture Surgical History Surgical History History of appendectomy History of cardiac catheterization History of cholecystectomy History of coronary artery stent placement History of hysterectomy History of partial colectomy History of tonsillectomy Family History Family History Father Family history of emphysema Patient's father is Mother Patient's mother is Family history of chronic obstructive pulmonary disease Social History Social History Smoking packs per day: 1.5 Smoking cigarettes per day: 30.0 Years smoked: 55 Smoking pack-years: 82.50 Smoking status: Former smoker Tobacco type: cigarettes Second hand tobacco smoke exposure: No Smoking end date: 10/06/22 Alcohol intake: never Drinks per week: 0 Substance use: never Substance use type: does not use Lack of Transportation: No Lack of Food: Never True Current Housing: I Have Housing Concerned About Future Housing: No Difficulty Paying Gas/Electric Bills: No Difficulty Paying for Meds: No Currently Unemployed: No Education: Bachelor's Degree Difficulty w/ Childcare or Family Care: Decline to Answer Spiritual care concerns: No Meds Home Medications and Allergies Home Medications Medication Instructions Recorded Confirmed Type amiodarone 100 mg tablet (Pacerone) 100 mg PO DAILY 08/07/20 03/16/23 History apixaban 5 mg tablet (Eliquis) 5 mg PO BID 08/07/20 03/16/23 History furosemide 40 mg tablet 60 mg PO DAILY 08/07/20 03/16/23 History pravastatin 40 mg tablet 40 mg PO HS 08/07/20 03/16/23 History albuterol sulfate 90 mcg/actuation 2 puff inhalation Q4-6H PRN 07/09/22 03/16/23 Rx aerosol inhaler shortness of breath or wheezing 90 days #25.5 grams sertraline 100 mg tablet 200 mg PO DAILY #180 tabs 11/22/22 03/16/23 Rx clopidogrel 75 mg tablet 75 mg PO DAILY 02/03/23 03/16/23 History diltiazem HCl 360 mg 360 mg PO DAILY 02/03/23 03/16/23 History capsule,extended release 24 hr colestipol 1 gram tablet (Colestid) 2 g PO DAILY 02/05/23 03/16/23 History ramipril 5 mg capsule 5 mg PO DAILY #90 caps 02/07/23 03/16/23 Rx cephalexin 500 mg capsule 500 mg PO Q8H 7 days #21 caps 02/21/23 03/16/23 Rx alprazolam 0.25 mg tablet 1 mg PO QHS #7 tabs 03/06/23 03/16/23 Rx ipratropium 0.5 mg-albuterol 3 mg 3 ml inhalation Q6HRT #10 mL 03/06/23 03/16/23 Rx (2.5 mg
[2023-03-17] VITALS (23 sets, daily range): BP systolic 104–169; BP diastolic 51–80; PULSE 83–142; RESP 18–34; TEMP 36.1–36.5; O2SAT 92–98
[2023-03-17] MEDS: REMDESIVIR 200 MG/NS 250 ML 200 MG/250 ML BAG 250 MG IVPB (00:17)
[2023-03-17 01:21] LABS: Lactic Acid Reflex 0.8 mmol/L (0.7-2.0)
[2023-03-17] MEDS: ALBUTEROL SULFATE NEB 2.5 MG/3 ML INH INHALATION ×4 (02:08→21:10)
[2023-03-17] MEDS: IPRATROPIUM BR 0.02% INH SOLN 0.5 MG/2.5 ML VIAL INHALATION ×4 (02:08→21:10)
[2023-03-17 05:00] LABS: Basophils Percent Auto 0.2 % (0.2-1.2); Hematocrit 25.9 % (37.0-47.0); Hemoglobin 7.5 g/dL (12.0-15.0); Immature Granulocyte Absolute 0.02 K/mm3 (0.00-0.031); Immature Granulocyte Percent A 0.4 % (0-0.5); Lymphocytes Absolute Auto 0.39 K/mm3 (0.9-3.2); Lymphocytes Percent Auto 6.9 % (18.3-44.2); Mean Corpuscular Hemoglobin 25.5 pg (26-34); Mean Corpuscular Volume 88.1 fl (80-100); Mean Platelet Volume 9.5 fl (7.4-10.4); Monocytes Absolute Auto 0.6 K/mm3 (0.1-0.6); Monocytes Percent Auto 10.4 % (2.6-8.5); Neutrophils Absolute Auto 4.7 K/mm3 (1.3-6.7); Neutrophils Percent Auto 82.1 % (45.5-73.1); Platelet Count Result 207 k/mm3 (150-375); Red Blood Count 2.94 M/mm3 (4.2-5.4); Red Cell Distribution Width 16.8 % (11.5-14.5); White Blood Count 5.7 K/mm3 (4.5-10.0)
[2023-03-17 05:09] LABS: Alanine Aminotransferase 13 U/L (6-35); Albumin Level 3.7 g/dL (3.5-5.1); Alkaline Phosphatase 100 U/L (38-126); Anion Gap 6 mmol/L (8-16); Aspartate Amino Transferase 25 U/L (14-36); Bilirubin,Total 0.5 mg/dL (0.2-1.3); Blood Urea Nitrogen 16 mg/dL (7-17); Calcium 9.3 mg/dL (8.4-10.2); Carbon Dioxide 27 mmol/L (22-30); Chloride 106 mmol/L (98-107); Estimated CRCL calculation 43 ml/min; Estimated Glomerular Filt Rate 60; Glucose 134 mg/dL (65-110); Potassium 3.6 mmol/L (3.4-5.0); Sodium 139 mmol/L (137-145)
[2023-03-17 05:19] LABS: Iron 18 ug/dL (37-170)
[2023-03-17 05:29] LABS: Percent Iron Saturation 4 % (20-50)
[2023-03-17 05:39] LABS: Hypochromasia 1+ (NORMAL); Microcytosis 1+ (NORMAL); Platelet Estimate Adequate (Adequate)
[2023-03-17 05:40] LABS: Anisocytosis 2+ (NORMAL); Schistocytes None Seen (NORMAL)
[2023-03-17] MEDS: ALPRAZolam (*CRX) 0.5 MG TABLET 1 MG PO (08:51)
[2023-03-17] MEDS: FUROSEMIDE 20 MG TABLET 60 MG PO (08:51)
[2023-03-17] MEDS: ramipriL 5 MG CAPSULE PO (08:51)
[2023-03-17] MEDS: APIXABAN 5 MG TABLET PO ×2 (08:52→21:28)
[2023-03-17] MEDS: COLESTIPOL HCL 1 GM TABLET 2 GM PO (08:52)
[2023-03-17] MEDS: AMIODARONE HCL 100 MG TABLET PO (08:52)
[2023-03-17] MEDS: CLOPIDOGREL BISULFATE 75 MG TABLET PO (08:52)
[2023-03-17] MEDS: dilTIAZem HCL CD 180 MG CAP.24HR 360 MG PO (08:52)
[2023-03-17] MEDS: SERTRALINE HCL 50 MG TABLET 200 MG PO (08:53)
[2023-03-17] MEDS: MICONAZOLE NITRATE 2% CREAM 30 GM TUBE 1 APPLIC TOPICAL ×2 (08:53→21:00)
[2023-03-17 11:01] LABS: Alveolar/Arterial O2 Gradient 299.6 mmHg; Base Excess ABG -0.2 mEq/l (+/-2.0); Fractional Inspired Oxygen 60 %; HCO3 ABG 25.3 mEq/l (22.0-26.0); Oxygen Content ABG 11.3 %vol (16.0-22.0); Oxyhemoglobin 92.6 % THb (90.0-100.0); PCO2 ABG 45.9 mmHg (35.0-45.0); PO2 ABG 77.7 mmHg (80.0-100.0); PO2 FiO2 Ratio Arterial Blood 1.29 %; Total Hemoglobin 8.6 g/dL (12.0-18.0)
[2023-03-17 11:03] LABS: Device HIGH FLOW THERAPY; Modified Allen's Test Pass; Site Drawn LEFT RADIAL
[2023-03-17 11:27] LABS: Folic Acid 5.8 ng/mL (2.76->20)
--- NOTE | 2023-03-17 12:18 | PM.CNPUL ---
Assessment and Plan Assessment and plan (1) COVID-19: Code(s): U07.1 - COVID-19 Status: Acute Assessment and Plan: She has increased O2 need, diffuse infiltrates on CXR, shortness of breath and coughing, now on remdesivir and dexamethasone in-patient treatment, tolerating this. continue management, watch for deterioration, mange COPD with bronchodilators, and re-start regular controller therapy. (2) Acute on chronic hypoxic respiratory failure: Code(s): J96.21 - Acute and chronic respiratory failure with hypoxia Status: Acute Assessment and Plan: She has required oxygen at least with exertion from 2 years ago, has been using at night for about a year, and since January admission and discharge she has used it around the clock. Her current requirement is 50% while on BiPAP 14/7; she had mild hypercapnia and her tidal volumes are 650 which may be a little bit high. In addition to COVID pneumonia she may have pulmonary edema. BNP is pending. (3) COPD (chronic obstructive pulmonary disease): Qualifiers: COPD type: unspecified COPD Qualified Code(s): J44.9 - Chronic obstructive pulmonary disease, unspecified Code(s): J44.9 - Chronic obstructive pulmonary disease, unspecified Status: Acute Assessment and Plan: Managed by our group, last visit Feb 03; Was on Stiolto = dual bronchodilator; Trelegy caused thrush, Anoro was not covered by insurance. 2021 PFT= FEV1 62@%, DLCO 40%. Plan Continue remdesivir at the 100 mg dose to complete treatment Dexamethasone 6 mg for 10 days LDH and CRP, ordered for tomorrow; these are inflammatory markers to follow progression of COVID. Her ALT and AST are negative. Change BiPAP to lower settings as TV is too high 650 ml. Decrease back up rate now at 25, her spontaneous rate is about 30 so the back up is not doing anything at this point anyway. She can switch off the high flow for a break from the bipap. Some of her decompensation and O2 requirement may be cardiac, now with PAF. Will follow closely with you. History of Present Illness History of Present Illness Consult date: 03/17/23 Requesting physician: Karen Demarco MD Chief complaint: covid,acute hypoxia,copd exacerbation,afib with rv Narrative: pt was seen at 12:35 Mar 17 NEW: Maria Dolores Boles is a 77-year-old female admitted from [facility] with increasing shortness of breath, has a positive COVID PCR and acute hypoxemia. She is a patient in our office practice, her last visit was January after getting out of the hospital with an admission January 24 through the . She has COPD, FEV1 is 62% predicted from a pulmonary function test July 2021. Her DLCO was 40%. She has used oxygen with exertion for about 2 years; since January admission she has been on oxygen around the clock. Last office visit was Feb 03. Patient tells me she had a COVID vaccination this fall. Her last tobacco use was about 3 months ago. She was at rehab at [place], developed increasing shortness of breath, cough and headache. She did not have sputum production, nausea or vomiting, chest pain, joint pains. COVID test at [place] was negative. She came to [facility] with atrial fibrillation with rapid ventricular response rate 110, white blood cell count 5.7, iron deficiency anemia hemoglobin 7.5, hematocrit 25.9%, platelets normal 207. 82% neutrophils. Iron is very low 18. % saturation 4 very low, ferritin 19.6 very low. Arterial blood gas on 60% pH 7.36, pCO2 45.9, PO2 77.7, HC03 is 25.3, 92% saturation. Recent activity: January 24 through January 30, inpatient [facility]; COPD exacerbation; home for a few days, pulm visit Feb 03 Feb 05-Feb 14; entered rehab due to debil
[2023-03-17] MEDS: FUROSEMIDE INJ 40 MG/4 ML VIAL IV PUSH ×2 (12:22→17:28)
[2023-03-17] MEDS: METOPROLOL TARTRATE INJ 5 MG/5 ML VIAL IV PUSH (12:23)
--- NOTE | 2023-03-17 15:52 | PM.IMPN ---
Progress Note: A&P Assessment and Plan (1) COVID-19: Code(s): U07.1 - COVID-19 Status: Acute (2) Acute exacerbation of chronic obstructive pulmonary disease (COPD): Code(s): J44.1 - Chronic obstructive pulmonary disease with (acute) exacerbation Status: Acute (3) Pneumonia: Code(s): J18.9 - Pneumonia, unspecified organism Status: Acute Plan 77-year-old female with past medical history of paroxysmal AFib on anticoagulation, COPD presented with worsening shortness of breaths.Viral PCR done today showed COVID+.? CXR did not demonstrate pneumonia, did show mild pulmonary edema.? Was also found to have anemia 1. Acute hypoxic respiratory failure: Secondary to COVID-19 Continue with O2 support, currently on BiPAP Pulmonary consult Continue with remdesivir Continue with Decadron Bronchodilators Will start on IV Lasix instead of oral Lasix Obtain chest x-ray 2. Paroxysmal AFib: Tachycardia present in setting of respiratory distress Continue with oral Cardizem for now Received 1 time 5 mg of IV metoprolol Continue with Eliquis 3. Anemia: Obtain fecal occult blood Start on oral iron supplement Monitor H&H, transfuse for hemoglobin less than 7 4. Hypertension: Continue with ramipril 5. Code status: Full 6. DVT prophylaxis on Eliquis Disposition: Pending improvement, low threshold for ICU transfer Time Spent With Patient Time with patient: 15 - 25 minutes Subjective Date/time seen: 03/17/23 15:52 Interval history: Continues to be short of breath, wheezing, in respiratory distress Was started on BiPAP Review of Systems Review of Systems: All systems reviewed & are unremarkable except as noted in HPI and below Exam Narrative: GEN: Alert, oriented, mild increase in respiratory effort with accessory muscle use, HEENT: pupils are equal, EOMI, symmetrical face; oral membranes moist, NECK: Trachea is midline CHEST: Equal air entry, symmetric excursion, scattered wheezes on expiration, few crackles. CV: Tachycardic irregular S1S2 no m/g/r ABD : (+) bowel sounds Extremities : no clubbing, cyanosis, or edema PSYCH: normal thought and speech, Objective Data Vital Signs Vital Signs: Vital Signs - 24 hr 03/16/23 15:58 03/16/23 16:03 03/16/23 16:00 Temperature 97.1 F L Pulse Rate 109 H 110 H Respiratory Rate 28 H Blood Pressure 98/65 L Pulse Oximetry 97 96 Oxygen Delivery High Flow Therapy with Na Oxygen Flow Rate 60 Fraction of Inspired Oxygen 58 03/16/23 16:00 03/16/23 18:00 03/16/23 20:32 Temperature 97.1 F L Pulse Rate 110 H 118 H 109 H Respiratory Rate 28 H 26 H Blood Pressure 129/70 Pulse Oximetry 96 94 Oxygen Delivery High Flow Therapy with Na Oxygen Flow Rate 60 Fraction of Inspired Oxygen 58 03/16/23 21:31 03/16/23 20:00 03/16/23 23:54 Temperature 97.1 F L Pulse Rate 102 H 100 Respiratory Rate 26 H Blood Pressure 118/65 Pulse Oximetry 98 96 Oxygen Delivery High Flow Therapy with Na Oxygen Flow Rate 57 Fraction of Inspired Oxygen 55 03/16/23 20:00 03/17/23 00:00 03/17/23 02:09 Temperature Pulse Rate 127 H Respiratory Rate 28 H Blood Pressure Pulse Oximetry 92 94 Oxygen Delivery High Flow Therapy with Na High Flow Therapy with Na Oxygen Flow Rate 60 60 Fraction of Inspired Oxygen 55 55 03/17/23 02:29 03/17/23 00:00 03/17/23 04:24 Temperature 97.7 F Pulse Rate 129 H 97 104 H Respiratory Rate 28 H 18 Blood Pressure 125/77 Pulse Oximetry 96 Oxygen Delivery Oxygen Flow Rate Fraction of Inspired Oxygen 03/17/23 02:00 03/17/23 04:00 03/17/23 04:00 Temperature Pulse Rate 108 H 109 H Respiratory Rate Blood Pressure Pulse Oximetry 94 Oxygen Delivery High Flow Therapy with Na Oxygen Flow Rate 60 Fraction of Inspired Oxygen 55 03/17/23 06:00 03/16/23 22:00 03/17/23 08:00 Temperature 97.3 F L Pulse Rate 110 H 102
[2023-03-17] MEDS: POTASSIUM CHLORIDE 20 MEQ PACKET (FOR LIQUID) 40 MEQ PO (17:28)
[2023-03-17] MEDS: REMDESIVIR 100 MG/NS 250 ML 100 MG/250 ML BAG 250 MG IVPB (21:28)
[2023-03-17] MEDS: PRAVASTATIN SODIUM 20 MG TABLET 40 MG PO (21:28)
[2023-03-18] VITALS (24 sets, daily range): BP systolic 105–137; BP diastolic 52–69; PULSE 73–117; RESP 16–28; TEMP 36.4–36.9; O2SAT 88–100
[2023-03-18] MEDS: IPRATROPIUM BR 0.02% INH SOLN 0.5 MG/2.5 ML VIAL INHALATION ×4 (03:00→20:57)
[2023-03-18] MEDS: ALBUTEROL SULFATE NEB 2.5 MG/3 ML INH INHALATION ×4 (03:00→20:56)
[2023-03-18 04:54] LABS: Hemoglobin 7.3 g/dL (12.0-15.0); Immature Granulocyte Absolute 0.02 K/mm3 (0.00-0.031); Immature Granulocyte Percent A 0.3 % (0-0.5); Lymphocytes Absolute Auto 0.76 K/mm3 (0.9-3.2); Mean Corpuscular HGB Conc 29.2 g/dl (32-36); Mean Corpuscular Hemoglobin 25.8 pg (26-34); Mean Corpuscular Volume 88.3 fl (80-100); Mean Platelet Volume 9.7 fl (7.4-10.4); Monocytes Absolute Auto 0.9 K/mm3 (0.1-0.6); Monocytes Percent Auto 13.1 % (2.6-8.5); Neutrophils Absolute Auto 5.3 K/mm3 (1.3-6.7); Neutrophils Percent Auto 75.6 % (45.5-73.1); Platelet Count Result 203 k/mm3 (150-375); Red Blood Count 2.83 M/mm3 (4.2-5.4); Red Cell Distribution Width 17.2 % (11.5-14.5); White Blood Count 6.9 K/mm3 (4.5-10.0)
[2023-03-18 05:28] LABS: INR 1.7; Prothrombin Time 21.5 Seconds (11.1-14.7)
[2023-03-18 05:37] LABS: Anisocytosis 2+ (NORMAL); Hypochromasia 1+ (NORMAL); Platelet Estimate Adequate (Adequate); Schistocytes None Seen (NORMAL)
[2023-03-18 05:49] LABS: Alanine Aminotransferase 26 U/L (6-35); Albumin Level 3.6 g/dL (3.5-5.1); Alkaline Phosphatase 76 U/L (38-126); Anion Gap 5 mmol/L (8-16); Aspartate Amino Transferase 58 U/L (14-36); Bilirubin,Total 0.8 mg/dL (0.2-1.3); Blood Urea Nitrogen 25 mg/dL (7-17); CRP 2.2 mg/dL (<1.0); Calcium 8.6 mg/dL (8.4-10.2); Carbon Dioxide 28 mmol/L (22-30); Chloride 104 mmol/L (98-107); Estimated CRCL calculation 43 ml/min; Estimated Glomerular Filt Rate 60; Glucose 109 mg/dL (65-110); Magnesium 2.1 mg/dL (1.6-2.3); Potassium 4.4 mmol/L (3.4-5.0); Sodium 137 mmol/L (137-145)
[2023-03-18 06:34] LABS: Lactate Dehydrogenase 395 U/L (120-246)
[2023-03-18 09:35] LABS: Base Excess ABG 4.2 mEq/l (+/-2.0); Carboxyhemoglobin 0.1 % THb (0-2.0); Fractional Inspired Oxygen 45 %; HCO3 ABG 28.5 mEq/l (22.0-26.0); Methemoglobin ABG 0.3 %THb (0-1.5); Oxygen Content ABG 10.8 %vol (16.0-22.0); Oxygen Saturation ABG 94.9 % (95.0-100.0); Oxyhemoglobin 92.7 % THb (90.0-100.0); PCO2 ABG 42.1 mmHg (35.0-45.0); PO2 FiO2 Ratio Arterial Blood 1.58 %; Reduced Hemoglobin 6.9 %THb (0-5.0); Total Hemoglobin 8.2 g/dL (12.0-18.0); pH ABG 7.449 (7.350-7.450)
[2023-03-18] MEDS: ramipriL 5 MG CAPSULE PO (09:36)
[2023-03-18] MEDS: COLESTIPOL HCL 1 GM TABLET 2 GM PO (09:36)
[2023-03-18] MEDS: SERTRALINE HCL 50 MG TABLET 200 MG PO (09:36)
[2023-03-18] MEDS: dilTIAZem HCL CD 180 MG CAP.24HR 360 MG PO (09:36)
[2023-03-18] MEDS: CLOPIDOGREL BISULFATE 75 MG TABLET PO (09:37)
[2023-03-18] MEDS: POLYSACCHARIDE IRON COMPLEX 150 MG CAPSULE PO (09:37)
[2023-03-18] MEDS: MICONAZOLE NITRATE 2% CREAM 30 GM TUBE 1 APPLIC TOPICAL ×2 (09:37→21:38)
[2023-03-18] MEDS: FUROSEMIDE INJ 40 MG/4 ML VIAL IV PUSH ×2 (09:37→18:55)
[2023-03-18] MEDS: APIXABAN 5 MG TABLET PO ×2 (09:37→21:38)
[2023-03-18] MEDS: AMIODARONE HCL 100 MG TABLET PO (09:37)
[2023-03-18 09:38] LABS: Device NON-INVASIVE VENT; Site Drawn RIGHT BRACHIAL
[2023-03-18 09:39] LABS: Non-Invasive Expiratory Pressure 7 CMH2O; Non-Invasive Inspiratory Pressure 14 CMH2O; Non-Invasive Vent Rate 15 /MIN
[2023-03-18] MEDS: ALPRAZolam (*CRX) 0.5 MG TABLET 1 MG PO ×2 (09:47→21:38)
--- NOTE | 2023-03-18 12:58 | PM.PNPUL ---
Progress Note: A&P Assessment and Plan (1) COVID-19: Code(s): U07.1 - COVID-19 Status: Acute Assessment and Plan: She has increased O2 need, diffuse infiltrates on CXR, shortness of breath and coughing, now on remdesivir and dexamethasone in-patient treatment, tolerating this. continue management, watch for deterioration, mange COPD with bronchodilators, and re-start regular controller therapy. (2) Acute on chronic hypoxic respiratory failure: Code(s): J96.21 - Acute and chronic respiratory failure with hypoxia Status: Acute Assessment and Plan: She is off BIPAP, resting while using AirVo. Started using supplemental O2 with exertion 2 years ago, has been using at night for about a year; since January 2023 admission and discharge she has used it around the clock. Yesterday she was using 50% with BiPAP 22/10; she had mild hypercapnia. On the BiPAP settings, TV were high, 650 ml. In addition to COVID pneumonia she may have pulmonary edema with her paroxysmal atrial fib. HEart rate is =110, still higher than desirable. Has been on cardizem for rate control. BNP was 1210 on Mar 16. (3) COPD (chronic obstructive pulmonary disease): Qualifiers: COPD type: unspecified COPD Qualified Code(s): J44.9 - Chronic obstructive pulmonary disease, unspecified Code(s): J44.9 - Chronic obstructive pulmonary disease, unspecified Status: Acute Assessment and Plan: Managed by our group, last visit Feb 03; Was on Stiolto = dual bronchodilator; Trelegy caused thrush, Anoro was not covered by insurance. 2021 PFT= FEV1 62%, DLCO 40%. She is not having a COPD exacerbation; appears to have COVID with covid viral pneumonia. Plan Continue remdesivir at the 100 mg dose to complete treatment Dexamethasone 6 mg for 10 days Mar 18 LDH and CRP are elevated; LDH 395, CRP 2.2. The AST is higher now 58. These are inflammatory markers for COVID., Alternate BiPAP with AirVo, can wean O2 to keep saturation 90-94%. Some of her decompensation and O2 requirement may be cardiac, has had PAF. Subjective Date/time seen: 03/18/23 12:58 Interval history: hospital follow up : 03/18/23 follow up for COVID and acute hypoxemia. She is alert, feels overall ok for having COVID. Non-productive cough. She is eating well. 03/17/23 new consult: Maria Dolores Boles is a 77-year-old female admitted from [facility] with increasing shortness of breath, has a positive COVID PCR and acute hypoxemia.? She is a patient in our office practice, her last visit was February 03 after hospital discharge January 24 to with COPD and CHF. COPD, FEV1 is 62% predicted PFT July 2021, DLCO was 40%. She has used oxygen with exertion for about 2 years; since January admission she has been on oxygen around the clock.? Last office visit was Feb 03.? Patient tells me she had a COVID vaccination this fall.? Her last tobacco use was about 3 months ago. She was at rehab at [facility], developed increasing shortness of breath, cough and headache.? She did not have sputum production, nausea or vomiting, chest pain, joint pains. COVID test at [facility] was negative. She came to [place] [facility] with atrial fibrillation with rapid ventricular response rate 110, white blood cell count 5.7, iron deficiency anemia hemoglobin 7.5, hematocrit 25.9%, platelets normal 207; differential 82% neutrophils.? Iron is very low 18. % saturation 4 very low, ferritin 19.6 very low.? Arterial blood gas on 60% pH 7.36, pCO2 45.9, PO2 77.7, HC03 is 25.3, 92% saturation. Recent activity: January 24 through January 30, inpatient [facility]; COPD exacerbation; home for a few days, pulm office visit Feb 03 Feb 05-Feb 14; entered rehab due to debilitation N
--- NOTE | 2023-03-18 13:09 | PM.IMPN ---
Progress Note: A&P Assessment and Plan (1) COVID-19: Code(s): U07.1 - COVID-19 Status: Acute (2) Acute exacerbation of chronic obstructive pulmonary disease (COPD): Code(s): J44.1 - Chronic obstructive pulmonary disease with (acute) exacerbation Status: Acute (3) Pneumonia: Code(s): J18.9 - Pneumonia, unspecified organism Status: Acute Plan 77-year-old female with past medical history of paroxysmal AFib on anticoagulation, COPD presented with worsening shortness of breaths.Viral PCR done today showed COVID+.? CXR did not demonstrate pneumonia, did show mild pulmonary edema.? Was also found to have anemia 1. Acute hypoxic respiratory failure: Secondary to COVID-19 Continue with O2 support, currently on BiPAP Pulmonary consult Continue with remdesivir Continue with Decadron Bronchodilators Continue with IV Lasix 2. Paroxysmal AFib: Continue with oral Cardizem for now Received 1 time 5 mg of IV metoprolol Continue with Eliquis 3. Anemia: Obtain fecal occult blood Continue with oral iron supplement Monitor H&H, transfuse for hemoglobin less than 7 4. Hypertension: Continue with ramipril 5. Code status: Full 6. DVT prophylaxis on Eliquis Disposition: Pending improvement Time Spent With Patient Time with patient: 15 - 25 minutes Subjective Date/time seen: 03/18/23 13:09 Interval history: Continues to be on BiPAP Review of Systems Review of Systems: All systems reviewed & are unremarkable except as noted in HPI and below Exam Narrative: GEN: Alert, oriented, on BiPAP HEENT: pupils are equal, EOMI, symmetrical face; oral membranes moist, NECK: Trachea is midline CHEST: Equal air entry, symmetric excursion, scattered wheezes on expiration, few crackles. CV: Tachycardic irregular S1S2 no m/g/r ABD : (+) bowel sounds Extremities : no clubbing, cyanosis, or edema PSYCH: normal thought and speech, Objective Data Vital Signs Vital Signs: Vital Signs - 24 hr 03/17/23 14:41 03/17/23 14:33 03/17/23 14:45 Temperature Pulse Rate 102 H 102 H 110 H Respiratory Rate 29 H 28 H 28 H Blood Pressure Pulse Oximetry 92 Oxygen Delivery BiPAP Oxygen Flow Rate Fraction of Inspired Oxygen 03/17/23 14:00 03/17/23 16:00 03/17/23 16:00 Temperature 97.3 F L Pulse Rate 98 94 Respiratory Rate 19 Blood Pressure 104/51 L Pulse Oximetry 96 95 Oxygen Delivery BiPAP Oxygen Flow Rate Fraction of Inspired Oxygen 50 03/17/23 16:00 03/17/23 18:00 03/17/23 20:00 Temperature 97.5 F L Pulse Rate 97 88 83 Respiratory Rate 27 H Blood Pressure 104/51 L Pulse Oximetry 97 Oxygen Delivery Oxygen Flow Rate Fraction of Inspired Oxygen 03/17/23 21:10 03/17/23 20:00 03/17/23 20:00 Temperature Pulse Rate 98 91 Respiratory Rate 25 H Blood Pressure Pulse Oximetry 98 Oxygen Delivery BiPAP Oxygen Flow Rate Fraction of Inspired Oxygen 45 03/17/23 22:00 03/17/23 22:45 03/18/23 00:00 Temperature 97.6 F Pulse Rate 98 98 98 Respiratory Rate 25 H 26 H Blood Pressure 122/54 L Pulse Oximetry 97 94 Oxygen Delivery BiPAP Oxygen Flow Rate Fraction of Inspired Oxygen 03/18/23 00:00 03/18/23 00:00 03/18/23 02:00 Temperature Pulse Rate 105 H 86 Respiratory Rate Blood Pressure Pulse Oximetry 95 Oxygen Delivery BiPAP Oxygen Flow Rate Fraction of Inspired Oxygen 45 03/18/23 03:00 03/18/23 03:10 03/18/23 01:45 Temperature Pulse Rate 100 102 H 96 Respiratory Rate 24 H 24 H 24 H Blood Pressure Pulse Oximetry 94 Oxygen Delivery BiPAP Oxygen Flow Rate Fraction of Inspired Oxygen 03/18/23 04:00 03/18/23 04:00 03/18/23 04:00 Temperature 97.8 F Pulse Rate 95 92 Respiratory Rate 22 H Blood Pressure 137/68 Pulse Oximetry 98 95 Oxygen Delivery BiPAP Oxygen Flow Rate Fraction of Inspired Oxygen 45 03/18/23 06:00 03/18/23
[2023-03-18] MEDS: PRAVASTATIN SODIUM 20 MG TABLET 40 MG PO (21:38)
[2023-03-18] MEDS: REMDESIVIR 100 MG/NS 250 ML 100 MG/250 ML BAG 250 MG IVPB (21:39)
[2023-03-19] VITALS (22 sets, daily range): BP systolic 108–124; BP diastolic 47–68; PULSE 79–122; RESP 20–24; TEMP 36.1–36.7; O2SAT 91–100
[2023-03-19] MEDS: guaiFENesin 600 MG/DEXTROMETHORPHAN 30 MG SR TAB 12 HR 1 TAB PO ×2 (00:56→17:44)
[2023-03-19] MEDS: IPRATROPIUM BR 0.02% INH SOLN 0.5 MG/2.5 ML VIAL INHALATION ×4 (02:52→20:59)
[2023-03-19] MEDS: ALBUTEROL SULFATE NEB 2.5 MG/3 ML INH INHALATION ×4 (02:52→20:59)
[2023-03-19 05:17] LABS: Hematocrit 26.6 % (37.0-47.0); Hemoglobin 7.7 g/dL (12.0-15.0); Immature Granulocyte Absolute 0.03 K/mm3 (0.00-0.031); Immature Granulocyte Percent A 0.5 % (0-0.5); Lymphocytes Percent Auto 13.2 % (18.3-44.2); Mean Corpuscular HGB Conc 28.9 g/dl (32-36); Mean Corpuscular Hemoglobin 25.5 pg (26-34); Mean Corpuscular Volume 88.1 fl (80-100); Mean Platelet Volume 9.5 fl (7.4-10.4); Monocytes Absolute Auto 0.6 K/mm3 (0.1-0.6); Monocytes Percent Auto 10.4 % (2.6-8.5); Neutrophils Absolute Auto 4.6 K/mm3 (1.3-6.7); Neutrophils Percent Auto 75.9 % (45.5-73.1); Nucleated Red Blood Cells Perc 0.3 % (0.0-0.2); Platelet Count Result 226 k/mm3 (150-375); Red Blood Count 3.02 M/mm3 (4.2-5.4); Red Cell Distribution Width 17.2 % (11.5-14.5); White Blood Count 6.1 K/mm3 (4.5-10.0)
[2023-03-19 05:31] LABS: Alanine Aminotransferase 27 U/L (6-35); Albumin Level 3.6 g/dL (3.5-5.1); Alkaline Phosphatase 93 U/L (38-126); Anion Gap 7 mmol/L (8-16); Aspartate Amino Transferase 43 U/L (14-36); Bilirubin,Total 0.5 mg/dL (0.2-1.3); Blood Urea Nitrogen 28 mg/dL (7-17); Calcium 8.7 mg/dL (8.4-10.2); Carbon Dioxide 30 mmol/L (22-30); Chloride 101 mmol/L (98-107); Estimated CRCL calculation 40 ml/min; Estimated Glomerular Filt Rate 53; Glucose 109 mg/dL (65-110); Potassium 3.7 mmol/L (3.4-5.0); Sodium 138 mmol/L (137-145)
--- NOTE | 2023-03-19 08:52 | PM.IMPN ---
Progress Note: A&P Assessment and Plan (1) COVID-19: Code(s): U07.1 - COVID-19 Status: Acute Assessment and Plan: Continue remdesivir and dexamethasone (03/16 initated) 03/19/2023 clinically improving (2) Acute exacerbation of chronic obstructive pulmonary disease (COPD): Code(s): J44.1 - Chronic obstructive pulmonary disease with (acute) exacerbation Status: Acute Assessment and Plan: Continue steroids, bronchodilators (3) Acute on chronic hypoxic respiratory failure: Code(s): J96.21 - Acute and chronic respiratory failure with hypoxia Status: Acute Assessment and Plan: As above Also receiving furosemide 40 mg IV bid Monitor electrolytes (4) Pneumonia: Code(s): J18.9 - Pneumonia, unspecified organism Status: Acute Assessment and Plan: Due to COVID-19 (5) Paroxysmal atrial fibrillation: Code(s): I48.0 - Paroxysmal atrial fibrillation Status: Chronic Assessment and Plan: Continue diltiazem, Eliquis, amiodarone (6) Coronary arteriosclerosis in [place] artery: Code(s): I25.10 - Atherosclerotic heart disease of [place] coronary artery without angina pectoris Status: Acute Assessment and Plan: Currently w/o sx's (7) Anemia: Code(s): D64.9 - Anemia, unspecified Status: Chronic Assessment and Plan: Stable w/o overt bleeding N/c, N/c Taking oral iron Stool occult blood pending Plan 77-year-old female with past medical history of paroxysmal AFib on anticoagulation, COPD presented with worsening shortness of breaths.Viral PCR done today showed COVID+.? CXR did not demonstrate pneumonia, did show mild pulmonary edema.? Was also found to have anemia 1. Acute hypoxic respiratory failure: Secondary to COVID-19 Continue with O2 support, currently on BiPAP Pulmonary consult Continue with remdesivir Continue with Decadron Bronchodilators Continue with IV Lasix 2. Paroxysmal AFib: Continue with oral Cardizem for now Received 1 time 5 mg of IV metoprolol Continue with Eliquis 3. Anemia: Obtain fecal occult blood Continue with oral iron supplement Monitor H&H, transfuse for hemoglobin less than 7 4. Hypertension: Continue with ramipril 5. Code status: Full 6. DVT prophylaxis on Eliquis Disposition: Pending improvement Subjective Date/time seen: 03/19/23 08:52 Interval history: Feeling a little better. Can taste and smell food but appetite is poor. Denied pain. SOB at rest. Airvo at 55%. Cough mostly dry, scant sputum. No hemoptysis. Last use of BiPap 03/17. Denied gi/gu issues. Denied ABNL bleeding. Generalized fatigue and weakness but no focal symptoms. Review of Systems Review of Systems: All systems reviewed & are unremarkable except as noted in HPI and below Exam Narrative: HEENT: PERRL, sclerae nonicteric, pharyngeal mucosa pink and intact NECK: No JVD, adenopathy CHEST: COARSE BS WITH SCATTER RHONCHI, CRACKLES, EXPIRATORY WHEEZES HEART: NL S1/S2, regular, MURMUR NOT AUDIBLE ABDOMEN: BS+, soft, nontender, no mass, no bruits EXTREMITIES: No cyanosis, edema, or clubbing NEUROLOGIC: CN intact and symmetric to inspection. MUSCULOSKELETAL: Tone and strength symmetric. PSYCH: Alert. Oriented to person, place, and time. Objective Data Vital Signs Vital Signs: Vital Signs - 24 hr 03/18/23 09:00 03/18/23 09:01 03/18/23 09:17 Temperature Pulse Rate 96 96 102 H Respiratory Rate 19 24 H 26 H Blood Pressure Pulse Oximetry 100 Oxygen Delivery BiPAP Oxygen Flow Rate Fraction of Inspired Oxygen 03/18/23 09:37 03/18/23 12:00 03/18/23 12:09 Temperature 97.8 F Pulse Rate 102 H 73 110 H Respiratory Rate 16 Blood Pressure 105/57 L Pulse Oximetry 88 L 98 Oxygen Delivery High Flow Therapy with Na Oxygen Flow Rate 55 Fraction of Inspired Oxygen 60 03/18/23 15:25 03/18/23 15:25 03/18/23 15:39 Temperature P
[2023-03-19] MEDS: SERTRALINE HCL 50 MG TABLET 200 MG PO (09:06)
[2023-03-19] MEDS: POLYSACCHARIDE IRON COMPLEX 150 MG CAPSULE PO (09:06)
[2023-03-19] MEDS: COLESTIPOL HCL 1 GM TABLET 2 GM PO (09:06)
[2023-03-19] MEDS: AMIODARONE HCL 100 MG TABLET PO (09:07)
[2023-03-19] MEDS: ramipriL 5 MG CAPSULE PO (09:07)
[2023-03-19] MEDS: dilTIAZem HCL CD 180 MG CAP.24HR 360 MG PO (09:07)
[2023-03-19] MEDS: CLOPIDOGREL BISULFATE 75 MG TABLET PO (09:07)
[2023-03-19] MEDS: APIXABAN 5 MG TABLET PO ×2 (09:07→22:01)
[2023-03-19] MEDS: MICONAZOLE NITRATE 2% CREAM 30 GM TUBE 1 APPLIC TOPICAL ×2 (09:08→22:05)
[2023-03-19] MEDS: FUROSEMIDE INJ 40 MG/4 ML VIAL IV PUSH ×2 (09:08→17:44)
[2023-03-19] MEDS: ALPRAZolam (*CRX) 0.5 MG TABLET 1 MG PO ×2 (09:14→17:44)
[2023-03-19] MEDS: POTASSIUM CHLORIDE 20 MEQ ER TABLET 40 MEQ PO (09:21)
--- NOTE | 2023-03-19 09:49 | PM.PNPUL ---
Progress Note: A&P Assessment and Plan (1) COVID-19: Code(s): U07.1 - COVID-19 Status: Acute Assessment and Plan: Patient tested positive for COVID-19 on 03/16/2023 and started on remdesivir, dexamethasone on 03/16/23. Procalcitonin 0.1 on 03/16/2023. Remdesivir for 10 days Unless he should recover and tolerate room air with rest, ambulation and while sleeping. - Dexamethasone 6 mg IV for 10 days - Continuous pulse oximetry - Avoid any fluid overload. - Albuterol inhaler Q 4 for now, no wheezes. -negative RSV and influenza 03/19/2023: Plan: Patient is required BiPAP and high-flow nasal cannula and per and IH treatment guidelines will add baricitinib and I spoke to pharmacy and to be dosed per renal function per Pharmacy. Keep saturations are 90-94% with nasal cannula up to 15 L, if fails then Airvo high flow nasal cannula. Discussed with Dr. Junior, will follow with you. (2) Acute on chronic hypoxic respiratory failure: Code(s): J96.21 - Acute and chronic respiratory failure with hypoxia Status: Acute Assessment and Plan: At baseline patient is on 2 L nasal cannula at rest, with activity and with sleep. Started using supplemental O2 with exertion 2 years ago, has been using at night for about a year; since January 2023 admission and discharge she has used it around the clock. ABG on admission 03/16/2023 7.41/38/92 on 9 L nasal cannula. No evidence of hypercarbic respiratory failure. In addition to COVID pneumonia she may have pulmonary edema with her paroxysmal atrial fib. Heart rate is =110, still higher than desirable. Has been on cardizem for rate control. BNP was 1210 on Mar 16. 01/26/23 - echo: EF 65-70%, mildly increased LV wall thickness, LV diastolic function indeterminate, mild aortic valve stenosis, mild-mod aortic and tricuspid valve regurgitation, mild pulmHTN RVSP 44mmHg. 03/16/23: 16:00 High flow NC 60L 58% sats 92% 03/17/23: 10:00 BiPAP 14/5 sats 50% 03/18/23 09:00 BiPAP 14/7 45%, sats 100% 03/18/23 10:00 High flow NC 55 L 60% sats 98% 03/18/23 20:00 High flow NC 55 L 65% sats 97% 03/19/23 08:00 High flow NC 50 L 55% sats 91% 03/19/23: Patient remains on Lasix 40 IV b.i.d. for possible fluid overload. Her weight today is 73.2 kg, net diuresis since admission-1.3 L. apixaban for paroxysmal atrial fibrillation (3) COPD (chronic obstructive pulmonary disease): Qualifiers: COPD type: unspecified COPD Qualified Code(s): J44.9 - Chronic obstructive pulmonary disease, unspecified Code(s): J44.9 - Chronic obstructive pulmonary disease, unspecified Status: Acute Assessment and Plan: Gold grade 2 group E COPD She is a patient in our office practice, her last visit was February 03 after hospital discharge January 24 to with COPD. Patient with 82.5 pack year tobacco use, quit 10/06/2022. Alpha 1 anti trypsin genotype MM. FEV1 is 62% predicted PFT July 2021, DLCO was 40%. CT scan of the chest on 07/20/2022 shows stable pulmonary nodules with moderate apical predominant centrilobular emphysema. She has used oxygen with exertion for about 2 years; since January admission she has been on oxygen around the clock.? Currently using 2 L nasal cannula 24-7. 01/26/23 - echo: EF 65-70%, mildly increased LV wall thickness, LV diastolic function indeterminate, mild aortic valve stenosis, mild-mod aortic and tricuspid valve regurgitation, mild pulmHTN RVSP 44mmHg. Last office visit was Feb 03, 2023.? Cat score was 25 patient tells me she had a COVID vaccination this fall.? Recent activity: January 24 through January 30, inpatient [facility]; COPD exacerbation; home for a few days, pulm office visit Feb 03 Feb 05-Feb 14; entered rehab due to debilitation Feb 17 to Feb 19; fell and broke hip; inpatient; Ortho consult= non-surgical injury, went to rehab Feb 21- Rehab 03/18/23: Managed by our group, last visit Feb 03; Was on Stiolto = dual bronchodilator; Trelegy caused t
[2023-03-19] MEDS: BARICITINIB 2 MG TABLET PO (17:44)
[2023-03-19] MEDS: PRAVASTATIN SODIUM 20 MG TABLET 40 MG PO (22:01)
[2023-03-19] MEDS: REMDESIVIR 100 MG/NS 250 ML 100 MG/250 ML BAG 250 MG IVPB (22:01)
[2023-03-20] VITALS (25 sets, daily range): BP systolic 108–115; BP diastolic 52–63; PULSE 55–105; RESP 18–24; TEMP 36.3–37; O2SAT 92–100
[2023-03-20] MEDS: ALBUTEROL SULFATE NEB 2.5 MG/3 ML INH INHALATION ×4 (02:33→20:35)
[2023-03-20] MEDS: IPRATROPIUM BR 0.02% INH SOLN 0.5 MG/2.5 ML VIAL INHALATION ×4 (02:33→20:47)
[2023-03-20 05:22] LABS: Hematocrit 26.3 % (37.0-47.0); Hemoglobin 7.6 g/dL (12.0-15.0); Mean Corpuscular HGB Conc 28.9 g/dl (32-36); Mean Corpuscular Hemoglobin 25.4 pg (26-34); Mean Platelet Volume 9.5 fl (7.4-10.4); Platelet Count Result 243 k/mm3 (150-375); Red Blood Count 2.99 M/mm3 (4.2-5.4); Red Cell Distribution Width 17.1 % (11.5-14.5)
[2023-03-20 05:36] LABS: Alanine Aminotransferase 25 U/L (6-35); Albumin Level 3.6 g/dL (3.5-5.1); Alkaline Phosphatase 93 U/L (38-126); Anion Gap 10 mmol/L (8-16); Aspartate Amino Transferase 37 U/L (14-36); Bilirubin,Total 0.5 mg/dL (0.2-1.3); Blood Urea Nitrogen 28 mg/dL (7-17); CRP 0.6 mg/dL (<1.0); Calcium 8.8 mg/dL (8.4-10.2); Carbon Dioxide 29 mmol/L (22-30); Chloride 100 mmol/L (98-107); Estimated CRCL calculation 44 ml/min; Estimated Glomerular Filt Rate 60; Glucose 129 mg/dL (65-110); Lactate Dehydrogenase 212 U/L (120-246); Potassium 4.1 mmol/L (3.4-5.0); Sodium 139 mmol/L (137-145)
[2023-03-20 05:37] LABS: INR 1.7; Prothrombin Time 20.7 Seconds (11.1-14.7)
--- NOTE | 2023-03-20 08:56 | PM.PNPUL ---
Progress Note: A&P Assessment and Plan (1) COVID-19: Code(s): U07.1 - COVID-19 Status: Acute Assessment and Plan: Patient tested positive for COVID-19 on 03/16/2023 and started on remdesivir, dexamethasone on 03/16/23. Procalcitonin 0.1 on 03/16/2023. Remdesivir for 10 days Unless he should recover and tolerate room air with rest, ambulation and while sleeping. - Dexamethasone 6 mg IV for 10 days - Continuous pulse oximetry - Avoid any fluid overload. - Albuterol inhaler Q 4 for now, no wheezes. -negative RSV and influenza 03/19/2023: Plan: Patient is required BiPAP and high-flow nasal cannula and per and IH treatment guidelines will add baricitinib and I spoke to pharmacy and to be dosed per renal function per Pharmacy. Keep saturations are 90-94% with nasal cannula up to 15 L, if fails then Airvo high flow nasal cannula. 03/20/23: Patient tells me she continues to improve. She states she has 50% back to her baseline. She has a cough and continued shortness of breath with activity. She denies hemoptysis. Her white blood cell count is 5.0, she is afebrile. CRP decreased from 2.2 to a value of 0.6. Plan: Continue dexamethasone 6 mg IV and remdesivir 100 mg q.day, both day 5. Continue baricitinib, day 2. Avoid fluid overload and wean FiO2 to maintain saturation 90-94%. Discussed with Dr. Junior, will follow with you. (2) Acute on chronic hypoxic respiratory failure: Code(s): J96.21 - Acute and chronic respiratory failure with hypoxia Status: Acute Assessment and Plan: At baseline patient is on 2 L nasal cannula at rest, with activity and with sleep. Started using supplemental O2 with exertion 2 years ago, has been using at night for about a year; since January 2023 admission and discharge she has used it around the clock. ABG on admission 03/16/2023 7.41/38/92 on 9 L nasal cannula. No evidence of hypercarbic respiratory failure. In addition to COVID pneumonia she may have pulmonary edema with her paroxysmal atrial fib. Heart rate is =110, still higher than desirable. Has been on cardizem for rate control. BNP was 1210 on Mar 16. 01/26/23 - echo: EF 65-70%, mildly increased LV wall thickness, LV diastolic function indeterminate, mild aortic valve stenosis, mild-mod aortic and tricuspid valve regurgitation, mild pulmHTN RVSP 44mmHg. 03/20: Goal saturation 90-94%, wean as tolerated. 03/16/23: 16:00 High flow NC 60L 58% sats 92% 03/17/23: 10:00 BiPAP 14/5 sats 50% 03/18/23 09:00 BiPAP 14/7 45%, sats 100% (last BiPAP use) 03/18/23 10:00 High flow NC 55 L 60% sats 98% 03/18/23 20:00 High flow NC 55 L 65% sats 97% 03/19/23 08:00 High flow NC 50 L 55% sats 91% 03/19/23 20:00 High Flow NC 50 L 55%, sats 100% 03/20/23 08:00 High flow NC 50 L 50%, sats 94% (3) COPD (chronic obstructive pulmonary disease): Qualifiers: COPD type: unspecified COPD Qualified Code(s): J44.9 - Chronic obstructive pulmonary disease, unspecified Code(s): J44.9 - Chronic obstructive pulmonary disease, unspecified Status: Acute Assessment and Plan: Gold grade 2 group E COPD She is a patient in our office practice, her last visit was February 03 after hospital discharge January 24 to with COPD. Patient with 82.5 pack year tobacco use, quit 10/06/2022. Alpha 1 anti trypsin genotype MM. FEV1 is 62% predicted PFT July 2021, DLCO was 40%. CT scan of the chest on 07/20/2022 shows stable pulmonary nodules with moderate apical predominant centrilobular emphysema. She has used oxygen with exertion for about 2 years; since January admission she has been on oxygen around the clock.? Currently using 2 L nasal cannula 24-7. 01/26/23 - echo: EF 65-70%, mildly increased LV wall thickness, LV diastolic function indeterminate, mild aortic valve stenosis, mild-mod aortic and tricuspid valve regurgitation, mild pulmHTN RVSP 44mmHg. Last office visit was Feb 03, 2023.? Cat score was 25 patient tells me she
[2023-03-20] MEDS: COLESTIPOL HCL 1 GM TABLET 2 GM PO (09:02)
[2023-03-20] MEDS: guaiFENesin 600 MG/DEXTROMETHORPHAN 30 MG SR TAB 12 HR 1 TAB PO (09:02)
[2023-03-20] MEDS: dilTIAZem HCL CD 180 MG CAP.24HR 360 MG PO (09:02)
[2023-03-20] MEDS: POLYSACCHARIDE IRON COMPLEX 150 MG CAPSULE PO (09:03)
[2023-03-20] MEDS: SERTRALINE HCL 50 MG TABLET 200 MG PO (09:03)
[2023-03-20] MEDS: CLOPIDOGREL BISULFATE 75 MG TABLET PO (09:04)
[2023-03-20] MEDS: AMIODARONE HCL 100 MG TABLET PO (09:04)
[2023-03-20] MEDS: ALPRAZolam (*CRX) 0.5 MG TABLET 1 MG PO ×2 (09:04→21:03)
[2023-03-20] MEDS: APIXABAN 5 MG TABLET PO ×2 (09:04→20:58)
[2023-03-20] MEDS: ramipriL 5 MG CAPSULE PO (09:04)
[2023-03-20] MEDS: FUROSEMIDE INJ 40 MG/4 ML VIAL IV PUSH ×2 (09:05→17:25)
[2023-03-20] MEDS: MICONAZOLE NITRATE 2% CREAM 30 GM TUBE 1 APPLIC TOPICAL ×2 (09:05→20:58)
[2023-03-20 12:12] LABS: NT Pro B Type Natriuretic Pept 2830 pg/mL (19.9-100)
--- NOTE | 2023-03-20 14:44 | PM.IMPN ---
Progress Note: A&P Assessment and Plan (1) COVID-19: Code(s): U07.1 - COVID-19 Status: Acute Assessment and Plan: Continue remdesivir and dexamethasone (03/16 initated) needing high flow oxygen slow improvement continue to wean off FIO2 (2) Acute exacerbation of chronic obstructive pulmonary disease (COPD): Code(s): J44.1 - Chronic obstructive pulmonary disease with (acute) exacerbation Status: Acute Assessment and Plan: Continue steroids, bronchodilators (3) Acute on chronic hypoxic respiratory failure: Code(s): J96.21 - Acute and chronic respiratory failure with hypoxia Status: Acute Assessment and Plan: diuresing well on furosemide 40 mg IV bid Monitor electrolytes (4) Pneumonia: Code(s): J18.9 - Pneumonia, unspecified organism Status: Acute Assessment and Plan: Due to COVID-19 (5) Paroxysmal atrial fibrillation: Code(s): I48.0 - Paroxysmal atrial fibrillation Status: Chronic Assessment and Plan: Continue diltiazem, Eliquis, amiodarone (6) Coronary arteriosclerosis in [place] artery: Code(s): I25.10 - Atherosclerotic heart disease of [place] coronary artery without angina pectoris Status: Acute Assessment and Plan: no chest pain mentioned (7) Anemia: Code(s): D64.9 - Anemia, unspecified Status: Chronic Assessment and Plan: hb is 7 continue to watch Taking oral iron Stool occult blood pending Plan 77-year-old female with past medical history of paroxysmal AFib on anticoagulation, COPD presented with worsening shortness of breaths.Viral PCR done today showed COVID+.? CXR did not demonstrate pneumonia, did show mild pulmonary edema.? Was also found to have anemia 1. Acute hypoxic respiratory failure: Secondary to COVID-19 Continue with O2 support, currently on BiPAP Pulmonary consult Continue with remdesivir Continue with Decadron Bronchodilators Continue with IV Lasix continue to wean off FIO2 2. Paroxysmal AFib: Continue with oral Cardizem for now Received 1 time 5 mg of IV metoprolol Continue with Eliquis 3. Anemia: Obtain fecal occult blood Continue with oral iron supplement Monitor H&H, transfuse for hemoglobin less than 7 4. Hypertension: Continue with ramipril 5. Code status: Full 6. DVT prophylaxis on Eliquis Disposition: Pending improvement Subjective Date/time seen: 03/20/23 14:44 Interval history: Pt admitted for covid Continue to wean down fio2. Slow improvement Review of Systems Review of Systems: ongoing sob on face mask Exam Narrative: HEENT: PERRL, sclerae nonicteric, pharyngeal mucosa pink and intact NECK: No JVD, adenopathy CHEST: COARSE BS WITH SCATTER RHONCHI, CRACKLES, EXPIRATORY WHEEZES HEART: NL S1/S2, regular, MURMUR NOT AUDIBLE ABDOMEN: BS+, soft, nontender, no mass, no bruits EXTREMITIES: No cyanosis, edema, or clubbing NEUROLOGIC: CN intact and symmetric to inspection. MUSCULOSKELETAL: Tone and strength symmetric. PSYCH: Alert. Oriented to person, place, and time. Objective Data Vital Signs Vital Signs: Vital Signs - 24 hr 03/19/23 14:48 03/19/23 16:00 03/19/23 16:00 Temperature 36.5 C Pulse Rate 106 H 111 H 102 H Respiratory Rate 20 20 Blood Pressure 118/57 L Pulse Oximetry 97 Oxygen Delivery Oxygen Flow Rate Fraction of Inspired Oxygen 03/19/23 18:00 03/19/23 16:00 03/19/23 20:00 Temperature 36.1 C L Pulse Rate 82 82 Respiratory Rate 20 Blood Pressure 119/56 L Pulse Oximetry 97 100 Oxygen Delivery High Flow Therapy with Na Oxygen Flow Rate 50 Fraction of Inspired Oxygen 60 03/19/23 21:01 03/19/23 21:01 03/20/23 00:00 Temperature 36.5 C Pulse Rate 79 79 79 Respiratory Rate 20 20 20 Blood Pressure 114/58 L Pulse Oximetry 95 100 Oxygen Delivery High Flow Therapy with Na Oxygen Flow Rate 50 Fraction of Inspired Oxygen 55
[2023-03-20] MEDS: BARICITINIB 2 MG TABLET PO (17:25)
[2023-03-20] MEDS: REMDESIVIR 100 MG/NS 250 ML 100 MG/250 ML BAG 250 MG IVPB (20:58)
[2023-03-20] MEDS: PRAVASTATIN SODIUM 20 MG TABLET 40 MG PO (20:58)
[2023-03-20] MEDS: HYDROcodone/acetaminophen (*CRX) 5-325 MG TABLET 1 TAB PO (21:02)
[2023-03-21] VITALS (28 sets, daily range): BP systolic 100–132; BP diastolic 57–67; PULSE 76–108; RESP 18–24; TEMP 36.3–36.6; O2SAT 80–98
[2023-03-21] MEDS: ALBUTEROL SULFATE NEB 2.5 MG/3 ML INH INHALATION ×4 (02:25→19:42)
[2023-03-21] MEDS: IPRATROPIUM BR 0.02% INH SOLN 0.5 MG/2.5 ML VIAL INHALATION ×4 (02:25→19:42)
[2023-03-21 04:45] LABS: Hematocrit 25.7 % (37.0-47.0); Hemoglobin 7.5 g/dL (12.0-15.0); Mean Corpuscular HGB Conc 29.2 g/dl (32-36); Mean Corpuscular Hemoglobin 25.3 pg (26-34); Mean Corpuscular Volume 86.5 fl (80-100); Mean Platelet Volume 9.2 fl (7.4-10.4); Platelet Count Result 213 k/mm3 (150-375); Red Blood Count 2.97 M/mm3 (4.2-5.4); Red Cell Distribution Width 16.9 % (11.5-14.5); White Blood Count 5.7 K/mm3 (4.5-10.0)
[2023-03-21 05:02] LABS: Alanine Aminotransferase 31 U/L (6-35); Albumin Level 3.5 g/dL (3.5-5.1); Alkaline Phosphatase 91 U/L (38-126); Anion Gap 5 mmol/L (8-16); Aspartate Amino Transferase 50 U/L (14-36); Bilirubin,Total 0.5 mg/dL (0.2-1.3); Blood Urea Nitrogen 28 mg/dL (7-17); Calcium 8.6 mg/dL (8.4-10.2); Carbon Dioxide 33 mmol/L (22-30); Chloride 99 mmol/L (98-107); Estimated CRCL calculation 43 ml/min; Estimated Glomerular Filt Rate 60; Glucose 143 mg/dL (65-110); Potassium 3.7 mmol/L (3.4-5.0); Sodium 137 mmol/L (137-145)
[2023-03-21] MEDS: AMIODARONE HCL 100 MG TABLET PO (08:51)
[2023-03-21] MEDS: CLOPIDOGREL BISULFATE 75 MG TABLET PO (08:51)
[2023-03-21] MEDS: SERTRALINE HCL 50 MG TABLET 200 MG PO (08:51)
[2023-03-21] MEDS: POLYSACCHARIDE IRON COMPLEX 150 MG CAPSULE PO (08:51)
[2023-03-21] MEDS: COLESTIPOL HCL 1 GM TABLET 2 GM PO (08:51)
[2023-03-21] MEDS: APIXABAN 5 MG TABLET PO ×2 (08:51→21:24)
[2023-03-21] MEDS: ramipriL 5 MG CAPSULE PO (08:51)
[2023-03-21] MEDS: dilTIAZem HCL CD 180 MG CAP.24HR 360 MG PO (08:51)
[2023-03-21] MEDS: MICONAZOLE NITRATE 2% CREAM 30 GM TUBE 1 APPLIC TOPICAL ×2 (09:08→21:24)
[2023-03-21] MEDS: FUROSEMIDE INJ 40 MG/4 ML VIAL IV PUSH ×2 (09:08→17:09)
[2023-03-21] MEDS: WATER FOR IRRIGATION, STERILE 1,000 ML BOTTLE 1000 ML (09:09)
[2023-03-21] MEDS: ALPRAZolam (*CRX) 0.5 MG TABLET 1 MG PO (09:16)
--- NOTE | 2023-03-21 09:23 | PM.PNPUL ---
Progress Note: A&P Assessment and Plan (1) COVID-19: Code(s): U07.1 - COVID-19 Status: Acute Assessment and Plan: Patient tested positive for COVID-19 on 03/16/2023 and started on remdesivir, dexamethasone on 03/16/23. Procalcitonin 0.1 on 03/16/2023. Remdesivir for 10 days Unless he should recover and tolerate room air with rest, ambulation and while sleeping. - Dexamethasone 6 mg IV for 10 days - Continuous pulse oximetry - Avoid any fluid overload. - Albuterol inhaler Q 4 for now, no wheezes. -negative RSV and influenza 03/19/2023: Plan: Patient is required BiPAP and high-flow nasal cannula and per and IH treatment guidelines will add baricitinib and I spoke to pharmacy and to be dosed per renal function per Pharmacy. Keep saturations are 90-94% with nasal cannula up to 15 L, if fails then Airvo high flow nasal cannula. 03/20/23: Patient tells me she continues to improve. She states she has 50% back to her baseline. She has a cough and continued shortness of breath with activity. She denies hemoptysis. Her white blood cell count is 5.0, she is afebrile. CRP decreased from 2.2 to a value of 0.6. Plan: Continue dexamethasone 6 mg IV and remdesivir 100 mg q.day, both day 5. Continue baricitinib, day 2. Avoid fluid overload and wean FiO2 to maintain saturation 90-94%. 03/21/23: Patient tells me she continues to slowly improve. States she is 75% back to her baseline except for her severe shortness of breath the and dyspnea on exertion. White blood cell count is 5.7, creatinine 0.9. Patient remains off BiPAP for 72 hours. When I enter the room the patient was on 45 L, 50% FiO2 with saturations 94%. Plan: Continue dexamethasone 6 mg IV and remdesivir 100 mg q.day, both day 6. Continue baricitinib, day 3. Avoid fluid overload and wean FiO2 to maintain saturation 90-94%. Later today will try to switch patient to high-flow nasal cannula at [address] Esquivel, will follow with you. (2) Acute on chronic hypoxic respiratory failure: Code(s): J96.21 - Acute and chronic respiratory failure with hypoxia Status: Acute Assessment and Plan: At baseline patient is on 2 L nasal cannula at rest, with activity and with sleep. Started using supplemental O2 with exertion 2 years ago, has been using at night for about a year; since January 2023 admission and discharge she has used it around the clock. ABG on admission 03/16/2023 7.41/38/92 on 9 L nasal cannula. No evidence of hypercarbic respiratory failure. In addition to COVID pneumonia she may have pulmonary edema with her paroxysmal atrial fib. Heart rate is =110, still higher than desirable. Has been on cardizem for rate control. BNP was 1210 on Mar 16. 01/26/23 - echo: EF 65-70%, mildly increased LV wall thickness, LV diastolic function indeterminate, mild aortic valve stenosis, mild-mod aortic and tricuspid valve regurgitation, mild pulmHTN RVSP 44mmHg. 03/21: Goal saturation 90-94%, wean as tolerated. 03/16/23: 16:00 High flow NC 60L 58% sats 92% 03/17/23: 10:00 BiPAP 14/5 sats 50% 03/18/23 09:00 BiPAP 14/7 45%, sats 100% (last BiPAP use) 03/18/23 10:00 High flow NC 55 L 60% sats 98% 03/18/23 20:00 High flow NC 55 L 65% sats 97% 03/19/23 08:00 High flow NC 50 L 55% sats 91% 03/19/23 20:00 High Flow NC 50 L 55%, sats 100% 03/20/23 08:00 High flow NC 50 L 50%, sats 94% 03/20/23 20:00 High flow NC 45 L 50%, sats 94 03/21/23 08:00 High flow NC 45 L 50%, sats 94, attempt nasal cannula 15 L later today (3) COPD (chronic obstructive pulmonary disease): Qualifiers: COPD type: unspecified COPD Qualified Code(s): J44.9 - Chronic obstructive pulmonary disease, unspecified Code(s): J44.9 - Chronic obstructive pulmonary disease, unspecified Status: Acute Assessment and Plan: Gold grade 2 group E COPD She is a patient in our office practice, her last visit was February 03 after hospital discharge January 24 to w
[2023-03-21] MEDS: BARICITINIB 2 MG TABLET PO (12:13)
[2023-03-21] MEDS: ACETYLCYSTEINE 20% INHAL SOLN 800 MG/4 ML VIAL 200 MG INHALATION ×2 (13:46→19:41)
[2023-03-21 16:55] LABS: MRSA (PCR) NOT DETECTED (NOT DETECTE)
[2023-03-21] MEDS: VANCOMYCIN 1,750 MG/NS 500 ML 1,750 MG/500 ML BAG 250 MG IVPB (17:10)
[2023-03-21] MEDS: levoFLOXacin 750 MG/D5W 150 ML 750 MG/150 ML BAG 100 MG IVPB (17:10)
--- NOTE | 2023-03-21 19:24 | PM.IMPN ---
Progress Note: A&P Assessment and Plan (1) COVID-19: Code(s): U07.1 - COVID-19 Status: Acute Assessment and Plan: Continue remdesivir and dexamethasone (03/16 initated) needing high flow oxygen slow improvement continue to wean off FIO2 BiPAP settings adjusted as per Pulmonary (2) Acute exacerbation of chronic obstructive pulmonary disease (COPD): Code(s): J44.1 - Chronic obstructive pulmonary disease with (acute) exacerbation Status: Acute Assessment and Plan: Continue steroids, bronchodilators (3) Acute on chronic hypoxic respiratory failure: Code(s): J96.21 - Acute and chronic respiratory failure with hypoxia Status: Acute Assessment and Plan: diuresing well on furosemide 40 mg IV bid Monitor electrolytes (4) Pneumonia: Code(s): J18.9 - Pneumonia, unspecified organism Status: Acute Assessment and Plan: Patient has couple episodes of pneumonia in mid and late February as discussed with patient's daughter Cristel Started patient on IV Levaquin and IV vancomycin pharmacy to dose based on renal functions Will consider repeating cultures (5) Paroxysmal atrial fibrillation: Code(s): I48.0 - Paroxysmal atrial fibrillation Status: Chronic Assessment and Plan: Continue diltiazem, Eliquis, amiodarone (6) Coronary arteriosclerosis in [place] artery: Code(s): I25.10 - Atherosclerotic heart disease of [place] coronary artery without angina pectoris Status: Acute Assessment and Plan: no chest pain mentioned (7) Anemia: Code(s): D64.9 - Anemia, unspecified Status: Chronic Assessment and Plan: hb is 7 continue to watch Taking oral iron Stool occult blood pending Plan ? Patient seen and examined at bedside during my morning rounds ? Collaborated with patient's nurse at the bedside in detail and addressed all concerns ? Labs, electrolytes, radiology, investigations and test results reviewed ? Consult/Nursing/Ancilliary notes on the chart reviewed and appreciated ? Spoke with patient's daughter Cristel on phone and answered all the questions that she had Repeat labs in a.m. Electrolyte replacement as per protocol. Patient will be monitored very closely on the floor. Further recommendations as per the hospital course. Time Spent With Patient Time with patient: Greater than 35 minutes Subjective Date/time seen: 03/21/23 19:24 Interval history: Patient seen examined at bedside. She is on BiPAP. Pulmonary are bedside adjusting BipAP. Patient still feels shortness of breath it slowly improving. Review of Systems Review of Systems: ongoing sob on face mask All systems reviewed & are unremarkable except as noted in HPI and below Exam Narrative: HEENT: PERRL, sclerae nonicteric, pharyngeal mucosa pink and intact NECK: No JVD, adenopathy CHEST: COARSE BS WITH SCATTER RHONCHI, CRACKLES, EXPIRATORY WHEEZES HEART: NL S1/S2, regular, MURMUR NOT AUDIBLE ABDOMEN: BS+, soft, nontender, no mass, no bruits EXTREMITIES: No cyanosis, edema, or clubbing NEUROLOGIC: CN intact and symmetric to inspection. MUSCULOSKELETAL: Tone and strength symmetric. PSYCH: Alert. Oriented to person, place, and time. Objective Data Vital Signs Vital Signs: Vital Signs - 24 hr 03/20/23 20:00 03/20/23 20:35 03/20/23 20:47 Temperature 37.0 C Pulse Rate 86 86 93 Respiratory Rate 18 18 20 Blood Pressure 108/52 L Pulse Oximetry 94 Oxygen Delivery Oxygen Flow Rate Fraction of Inspired Oxygen 03/20/23 21:25 03/21/23 00:00 03/20/23 20:00 Temperature 36.4 C L Pulse Rate 83 82 Respiratory Rate 18 Blood Pressure 125/65 Pulse Oximetry 93 95 Oxygen Delivery High Flow Therapy with Na Oxygen Flow Rate 45 Fraction of Inspired Oxygen 50 03/20/23 20:00 03/20/23 22:00 03/21/23 00:00 Temperature Pulse Rate 73 80 Respiratory Rate Blood Pressure Pulse
[2023-03-21] MEDS: PRAVASTATIN SODIUM 20 MG TABLET 40 MG PO (21:24)
[2023-03-21] MEDS: REMDESIVIR 100 MG/NS 250 ML 100 MG/250 ML BAG 250 MG IVPB (21:24)
[2023-03-22] VITALS (30 sets, daily range): BP systolic 103–125; BP diastolic 46–60; PULSE 75–99; RESP 18–241; TEMP 35.8–37; O2SAT 90–95
--- NOTE | 2023-03-22 | ECHO_ITS ---
Patient Info Name: Maria Dolores Boles Age: 77 years : 1945 Gender: Female Ht: 64 in Wt: 174 lbs BSA: 1.91 m2 HR: 79 bpm BP: 121 / 60 mmHg Heart Rhythm: Sinus Rhythm Technical Quality: Good Exam Date: 03/22/2023 9:48 AM Exam Location: Echo Lab Patient Status: Inpatient Admit Date: 03/17/2023 Staff Ordering Physician: Lorenzo Hameed MD Radiology Special Procedure Tech: Walter Flores RDCS Attending Provider: Lorenzo Hameed MD Exam Type: CA echo doppler color flow Study Info Indications - HYPOXIA Complete two-dimensional, color flow and Doppler transthoracic echocardiogram is performed. Summary 1. Complete two-dimensional, color flow and Doppler transthoracic echocardiogram is performed. 2. Severe pulmonary artery enlargement. 3. Left ventricular chamber dimension is normal. 4. Left ventricular systolic function is normal, estimated at 60-65%. 5. There is mildly increased left ventricular wall thickness. 6. The left ventricular diastolic function is grade II diastolic dysfunction. 7. The basal inferior wall is akinetic. 8. Left atrial chamber dimension is moderately enlarged. 9. Right atrial chamber dimension is mildly enlarged. 10. Right ventricular chamber dimension is mildly enlarged. 11. There is moderate aortic valve stenosis with a peak velocity of 224 cm/s, mean gradient of 11 mmHg, and aortic valve area of 1.5 cm2. 12. There is moderate aortic valve regurgitation. 13. There is moderate aortic valve calcification. 14. The mitral valve annulus is mildly calcified. 15. There is moderate mitral valve regurgitation. 16. There is mild tricuspid valve regurgitation. 17. Mild pulmonary hypertension, estimated pulmonary arterial systolic pressure is 43 mmHg. 18. There is mild pulmonic regurgitation. Left Ventricle Left ventricular chamber dimension is normal. Left ventricular systolic function is normal, estimated at 60-65%. There is mildly increased left ventricular wall thickness. The left ventricular diastolic function is grade II diastolic dysfunction. The basal inferior wall is akinetic. All other morgan appear normal. Right Ventricle Right ventricular chamber dimension is mildly enlarged. Right ventricular systolic function is normal. Left Atria Left atrial chamber dimension is moderately enlarged. Right Atria Right atrial chamber dimension is mildly enlarged. Atrial Septum Intact interatrial septum visualized by color flow imaging. Aortic Valve The aortic valve is trileaflet. There is moderate aortic valve stenosis with a peak velocity of 224 cm/s, mean gradient of 11 mmHg, and aortic valve area of 1.5 cm2. There is moderate aortic valve regurgitation. There is moderate aortic valve calcification. Pulmonic Valve The pulmonic valve is normal. There is no pulmonic valve stenosis. There is mild pulmonic regurgitation. Mitral Valve There is no mitral valve stenosis. There is moderate mitral valve regurgitation. The mitral valve annulus is mildly calcified. Tricuspid Valve The tricuspid valve leaflets are normal. There is no significant tricuspid valve stenosis. There is mild tricuspid valve regurgitation. Mild pulmonary hypertension, estimated pulmonary arterial systolic pressure is 43 mmHg. Pulmonary Arteries Severe pulmonary artery enlargement. Pericardium/Pleural The pericardium appears normal. There is trivial pericardial effusion. Inferior Vena Cava Dilated inferior vena cava with <50% collapse upon inspiration consistent with elevated right atrial pressure, 15 mmHg. Aorta The aortic root size at the sinus of Valsalva i
[2023-03-22] MEDS: ALBUTEROL SULFATE NEB 2.5 MG/3 ML INH INHALATION ×4 (02:02→20:13)
[2023-03-22] MEDS: ACETYLCYSTEINE 20% INHAL SOLN 800 MG/4 ML VIAL 200 MG INHALATION ×4 (02:02→20:13)
[2023-03-22] MEDS: IPRATROPIUM BR 0.02% INH SOLN 0.5 MG/2.5 ML VIAL INHALATION ×4 (02:02→20:13)
[2023-03-22 05:41] LABS: Basophils Percent Auto 0.2 % (0.2-1.2); Hematocrit 28.1 % (37.0-47.0); Immature Granulocyte Absolute 0.03 K/mm3 (0.00-0.031); Immature Granulocyte Percent A 0.5 % (0-0.5); Lymphocytes Absolute Auto 0.59 K/mm3 (0.9-3.2); Lymphocytes Percent Auto 9.8 % (18.3-44.2); Mean Corpuscular HGB Conc 28.5 g/dl (32-36); Mean Corpuscular Hemoglobin 25.1 pg (26-34); Mean Corpuscular Volume 88.1 fl (80-100); Mean Platelet Volume 9.5 fl (7.4-10.4); Monocytes Absolute Auto 0.4 K/mm3 (0.1-0.6); Neutrophils Percent Auto 82.5 % (45.5-73.1); Nucleated Red Blood Cells Perc 0.5 % (0.0-0.2); Platelet Count Result 234 k/mm3 (150-375); Red Blood Count 3.19 M/mm3 (4.2-5.4); Red Cell Distribution Width 16.7 % (11.5-14.5)
[2023-03-22 05:52] LABS: Anion Gap 5 mmol/L (8-16); Blood Urea Nitrogen 26 mg/dL (7-17); Calcium 8.5 mg/dL (8.4-10.2); Carbon Dioxide 33 mmol/L (22-30); Chloride 99 mmol/L (98-107); Estimated CRCL calculation 38 ml/min; Estimated Glomerular Filt Rate 60; Glucose 154 mg/dL (65-110); Magnesium 2.1 mg/dL (1.6-2.3); Phosphorus 3.5 mg/dL (2.5-4.5); Sodium 137 mmol/L (137-145)
[2023-03-22 06:08] LABS: Anisocytosis 1+ (NORMAL); Platelet Estimate Adequate (Adequate); Schistocytes None Seen (NORMAL); Target Cells 1+ (NORMAL)
--- NOTE | 2023-03-22 06:08 | PCCARD ---
CHANGED ECHO BUBBLE STUDY ORDER TO REGULAR ECHO WITHOUT BUBBLE DUE TO PATIENT COVID POSITIVE
[2023-03-22 08:18] LABS: Procalcitonin 0.1 ng/mL
--- NOTE | 2023-03-22 09:04 | PM.PNPUL ---
Progress Note: A&P Assessment and Plan (1) COVID-19: Code(s): U07.1 - COVID-19 Status: Acute Assessment and Plan: Patient tested positive for COVID-19 on 03/16/2023 and started on remdesivir, dexamethasone on 03/16/23. Procalcitonin 0.1 on 03/16/2023. Remdesivir for 10 days Unless he should recover and tolerate room air with rest, ambulation and while sleeping. - Dexamethasone 6 mg IV for 10 days - Continuous pulse oximetry - Avoid any fluid overload. - Albuterol inhaler Q 4 for now, no wheezes. -negative RSV and influenza 03/19/2023: Plan: Patient is required BiPAP and high-flow nasal cannula and per and IH treatment guidelines will add baricitinib and I spoke to pharmacy and to be dosed per renal function per Pharmacy. Keep saturations are 90-94% with nasal cannula up to 15 L, if fails then Airvo high flow nasal cannula. 03/20/23: Patient tells me she continues to improve. She states she has 50% back to her baseline. She has a cough and continued shortness of breath with activity. She denies hemoptysis. Her white blood cell count is 5.0, she is afebrile. CRP decreased from 2.2 to a value of 0.6. Plan: Continue dexamethasone 6 mg IV and remdesivir 100 mg q.day, both day 5. Continue baricitinib, day 2. Avoid fluid overload and wean FiO2 to maintain saturation 90-94%. 03/21/23: Patient tells me she continues to slowly improve. States she is 75% back to her baseline except for her severe shortness of breath the and dyspnea on exertion. White blood cell count is 5.7, creatinine 0.9. Patient remains off BiPAP for 72 hours. When I enter the room the patient was on 45 L, 50% FiO2 with saturations 94%. Plan: Continue dexamethasone 6 mg IV and remdesivir 100 mg q.day, both day 6. Continue baricitinib, day 3. Avoid fluid overload and wean FiO2 to maintain saturation 90-94%. Later today will try to switch patient to high-flow nasal cannula at 15 L. 03/22/23: The patient remained on noninvasive ventilation with the AVAPS mode with the above settings and 70% overnight. The patient is awake and communicative. She states she is breathing well on the noninvasive ventilator. Her saturations on 70% are 96%. I decreased her to 60% and her saturations were 92%. She has no wheezing on exam. Her white blood cell count is 6.0, creatinine is 0.9, her weight is 67.4. Cumulative diuresis since admission is 830 mL. Plan: Continue dexamethasone 6 mg IV and remdesivir 100 mg q.day, both day 7. Continue baricitinib, day 4. Discussed with Dr. Hameed, will follow with you. (2) Acute on chronic hypoxic respiratory failure: Code(s): J96.21 - Acute and chronic respiratory failure with hypoxia Status: Acute Assessment and Plan: At baseline patient is on 2 L nasal cannula at rest, with activity and with sleep. Started using supplemental O2 with exertion 2 years ago, has been using at night for about a year; since January 2023 admission and discharge she has used it around the clock. ABG on admission 03/16/2023 7.41/38/92 on 9 L nasal cannula. No evidence of hypercarbic respiratory failure. In addition to COVID pneumonia she may have pulmonary edema with her paroxysmal atrial fib. Heart rate is =110, still higher than desirable. Has been on cardizem for rate control. BNP was 1210 on Mar 16. 01/26/23 - echo: EF 65-70%, mildly increased LV wall thickness, LV diastolic function indeterminate, mild aortic valve stenosis, mild-mod aortic and tricuspid valve regurgitation, mild pulmHTN RVSP 44mmHg. 03/21: Goal saturation 90-94%, wean as tolerated. Approximately 10:00 a.m. the patient had acute worsening hypoxemic respiratory failure requiring BiPAP at 100%. Chest x-ray showed no pneumothorax right lower lobe consolidation which was worse. Patient started empirically on vancomycin and Levaquin. I placed the patient on the AVAPS mode and tighter the settings to comfort resulting in a rate of 20, tidal volume 500, EPAP 8, minim
[2023-03-22] MEDS: DORNASE ALFA INH SOLN 1 MG/ML 2.5 ML AMP 2.5 MG INHALATION ×2 (09:20→20:13)
[2023-03-22] MEDS: SERTRALINE HCL 50 MG TABLET 200 MG PO (09:50)
[2023-03-22] MEDS: ALPRAZolam (*CRX) 0.5 MG TABLET 1 MG PO (09:50)
[2023-03-22] MEDS: COLESTIPOL HCL 1 GM TABLET 2 GM PO (09:50)
[2023-03-22] MEDS: AMIODARONE HCL 100 MG TABLET PO (09:51)
[2023-03-22] MEDS: dilTIAZem HCL CD 180 MG CAP.24HR 360 MG PO (09:51)
[2023-03-22] MEDS: POLYSACCHARIDE IRON COMPLEX 150 MG CAPSULE PO (09:51)
[2023-03-22] MEDS: ramipriL 5 MG CAPSULE PO (09:51)
[2023-03-22] MEDS: CLOPIDOGREL BISULFATE 75 MG TABLET PO (09:52)
[2023-03-22] MEDS: APIXABAN 5 MG TABLET PO ×2 (09:52→21:03)
[2023-03-22] MEDS: FUROSEMIDE INJ 40 MG/4 ML VIAL IV PUSH ×2 (09:53→17:23)
[2023-03-22] MEDS: MICONAZOLE NITRATE 2% CREAM 30 GM TUBE 1 APPLIC TOPICAL (09:54)
[2023-03-22] MEDS: BARICITINIB 2 MG TABLET PO (10:52)
[2023-03-22] MEDS: VANCOMYCIN 1,250 MG/NS 250 ML 1,250 MG/250 ML BAG 166.67 MG IVPB (17:23)
--- NOTE | 2023-03-22 19:16 | PM.IMPN ---
Progress Note: A&P Assessment and Plan (1) COVID-19: Code(s): U07.1 - COVID-19 Status: Acute Assessment and Plan: Continue remdesivir and dexamethasone (03/16 initated) needing high flow oxygen slow improvement continue to wean off FIO2 BiPAP settings adjusted as per Pulmonary (2) Acute exacerbation of chronic obstructive pulmonary disease (COPD): Code(s): J44.1 - Chronic obstructive pulmonary disease with (acute) exacerbation Status: Acute Assessment and Plan: Continue steroids, bronchodilators (3) Acute on chronic hypoxic respiratory failure: Code(s): J96.21 - Acute and chronic respiratory failure with hypoxia Status: Acute Assessment and Plan: diuresing well on furosemide 40 mg IV bid Monitor electrolytes (4) Pneumonia: Code(s): J18.9 - Pneumonia, unspecified organism Status: Acute Assessment and Plan: Patient has couple episodes of pneumonia in mid and late February as discussed with patient's daughter Cristel Started patient on IV Levaquin and IV vancomycin pharmacy to dose based on renal functions Nasal MRSA swab was negative hence vancomycin will be discontinued tomorrow as discussed with the Pulmonary and ID pharmacist (5) Paroxysmal atrial fibrillation: Code(s): I48.0 - Paroxysmal atrial fibrillation Status: Chronic Assessment and Plan: Continue diltiazem, Eliquis, amiodarone (6) Coronary arteriosclerosis in [place] artery: Code(s): I25.10 - Atherosclerotic heart disease of [place] coronary artery without angina pectoris Status: Acute Assessment and Plan: no chest pain mentioned (7) Anemia: Code(s): D64.9 - Anemia, unspecified Status: Chronic Assessment and Plan: hb is 8 today continue to watch Taking oral iron Stool occult blood pending Patient has the low iron and borderline ferritin levels Will start patient on IV Venofer 300 mg daily for 3 days Plan ? Patient seen and examined at bedside during my morning rounds ? Collaborated with patient's nurse at the bedside in detail and addressed all concerns ? Labs, electrolytes, radiology, investigations and test results reviewed ? Consult/Nursing/Ancilliary notes on the chart reviewed and appreciated ? Spoke with patient's daughter Cristel on phone and answered all the questions that she had Repeat labs in a.m. Electrolyte replacement as per protocol. Patient will be monitored very closely on the floor. Further recommendations as per the hospital course. Time Spent With Patient Time with patient: 25 - 35 minutes Subjective Date/time seen: 03/22/23 19:16 Interval history: Patient still on BiPAP. Pulmonary trying to decrease FiO2. Patient is tolerating antibiotics Review of Systems Review of Systems: ongoing sob on face mask All systems reviewed & are unremarkable except as noted in HPI and below Exam Narrative: HEENT: PERRL, sclerae nonicteric, pharyngeal mucosa pink and intact NECK: No JVD, adenopathy CHEST: COARSE BS WITH SCATTER RHONCHI, CRACKLES, EXPIRATORY WHEEZES HEART: NL S1/S2, regular, MURMUR NOT AUDIBLE ABDOMEN: BS+, soft, nontender, no mass, no bruits EXTREMITIES: No cyanosis, edema, or clubbing NEUROLOGIC: CN intact and symmetric to inspection. MUSCULOSKELETAL: Tone and strength symmetric. PSYCH: Alert. Oriented to person, place, and time. Objective Data Vital Signs Vital Signs: Vital Signs - 24 hr 03/21/23 19:46 03/21/23 19:57 03/21/23 19:58 Temperature Pulse Rate 99 99 Respiratory Rate 22 H 22 H 22 H Blood Pressure Pulse Oximetry 94 94 Oxygen Delivery BiPAP BiPAP Oxygen Flow Rate Fraction of Inspired Oxygen 03/21/23 20:06 03/21/23 20:00 03/21/23 20:00 Temperature 36.6 C Pulse Rate 101 H 94 79 Respiratory Rate 22 H 18 Blood Pressure 100/67 Pulse Oximetry 94 Oxygen Delivery Oxygen Flow Rate Fraction of Inspired Oxygen
[2023-03-22] MEDS: IRON SUCROSE COMPLEX 300 MG in SODIUM CHLORIDE 0.9% IV 250 ML 176.67 MG IVPB (21:02)
[2023-03-22] MEDS: PRAVASTATIN SODIUM 20 MG TABLET 40 MG PO (21:12)
[2023-03-22] MEDS: REMDESIVIR 100 MG/NS 250 ML 100 MG/250 ML BAG 250 MG IVPB (21:13)
[2023-03-23] VITALS (25 sets, daily range): BP systolic 105–127; BP diastolic 52–59; PULSE 72–98; RESP 20–23; TEMP 36.3–36.8; O2SAT 87–100
[2023-03-23] MEDS: IPRATROPIUM BR 0.02% INH SOLN 0.5 MG/2.5 ML VIAL INHALATION ×4 (02:55→21:36)
[2023-03-23] MEDS: ACETYLCYSTEINE 20% INHAL SOLN 800 MG/4 ML VIAL 200 MG INHALATION ×4 (02:55→21:36)
[2023-03-23] MEDS: ALBUTEROL SULFATE NEB 2.5 MG/3 ML INH INHALATION ×4 (02:55→21:35)
[2023-03-23 05:30] LABS: Hematocrit 27.9 % (37.0-47.0); Immature Granulocyte Absolute 0.07 K/mm3 (0.00-0.031); Immature Granulocyte Percent A 1.3 % (0-0.5); Lymphocytes Absolute Auto 0.47 K/mm3 (0.9-3.2); Lymphocytes Percent Auto 8.5 % (18.3-44.2); Mean Corpuscular HGB Conc 28.7 g/dl (32-36); Mean Corpuscular Hemoglobin 24.9 pg (26-34); Mean Corpuscular Volume 86.9 fl (80-100); Monocytes Absolute Auto 0.4 K/mm3 (0.1-0.6); Monocytes Percent Auto 6.5 % (2.6-8.5); Neutrophils Absolute Auto 4.6 K/mm3 (1.3-6.7); Neutrophils Percent Auto 83.7 % (45.5-73.1); Nucleated Red Blood Cells Perc 0.7 % (0.0-0.2); Platelet Count Result 217 k/mm3 (150-375); Red Blood Count 3.21 M/mm3 (4.2-5.4); Red Cell Distribution Width 16.5 % (11.5-14.5); White Blood Count 5.5 K/mm3 (4.5-10.0)
[2023-03-23 05:40] LABS: Alanine Aminotransferase 38 U/L (6-35); Albumin Level 3.4 g/dL (3.5-5.1); Alkaline Phosphatase 88 U/L (38-126); Anion Gap 6 mmol/L (8-16); Aspartate Amino Transferase 48 U/L (14-36); Bilirubin,Total 0.5 mg/dL (0.2-1.3); Blood Urea Nitrogen 27 mg/dL (7-17); Calcium 8.5 mg/dL (8.4-10.2); Carbon Dioxide 35 mmol/L (22-30); Chloride 98 mmol/L (98-107); Estimated CRCL calculation 39 ml/min; Estimated Glomerular Filt Rate 53; Glucose 164 mg/dL (65-110); Potassium 3.5 mmol/L (3.4-5.0); Sodium 139 mmol/L (137-145)
[2023-03-23 06:55] LABS: Anisocytosis 1+ (NORMAL); Hypochromasia 1+ (NORMAL); Platelet Estimate Adequate (Adequate); Poikilocytosis 1+ (NORMAL); Schistocytes None Seen (NORMAL)
[2023-03-23] MEDS: dilTIAZem HCL CD 180 MG CAP.24HR 360 MG PO (09:10)
[2023-03-23] MEDS: FUROSEMIDE INJ 40 MG/4 ML VIAL IV PUSH ×2 (09:10→16:56)
[2023-03-23] MEDS: ramipriL 5 MG CAPSULE PO (09:11)
[2023-03-23] MEDS: AMIODARONE HCL 100 MG TABLET PO (09:11)
[2023-03-23] MEDS: POLYSACCHARIDE IRON COMPLEX 150 MG CAPSULE PO (09:11)
[2023-03-23] MEDS: CLOPIDOGREL BISULFATE 75 MG TABLET PO (09:11)
[2023-03-23] MEDS: SERTRALINE HCL 50 MG TABLET 200 MG PO (09:12)
[2023-03-23] MEDS: COLESTIPOL HCL 1 GM TABLET 2 GM PO (09:13)
[2023-03-23] MEDS: DORNASE ALFA INH SOLN 1 MG/ML 2.5 ML AMP 2.5 MG INHALATION ×2 (09:17→21:37)
--- NOTE | 2023-03-23 09:40 | PM.PNPUL ---
Progress Note: A&P Assessment and Plan (1) COVID-19: Code(s): U07.1 - COVID-19 Status: Acute Assessment and Plan: Patient tested positive for COVID-19 on 03/16/2023 and started on remdesivir, dexamethasone on 03/16/23. Procalcitonin 0.1 on 03/16/2023. Remdesivir for 10 days Unless he should recover and tolerate room air with rest, ambulation and while sleeping. - Dexamethasone 6 mg IV for 10 days - Continuous pulse oximetry - Avoid any fluid overload. - Albuterol inhaler Q 4 for now, no wheezes. -negative RSV and influenza 03/19/2023: Plan: Patient is required BiPAP and high-flow nasal cannula and per and IH treatment guidelines will add baricitinib and I spoke to pharmacy and to be dosed per renal function per Pharmacy. Keep saturations are 90-94% with nasal cannula up to 15 L, if fails then Airvo high flow nasal cannula. 03/20/23: Patient tells me she continues to improve. She states she has 50% back to her baseline. She has a cough and continued shortness of breath with activity. She denies hemoptysis. Her white blood cell count is 5.0, she is afebrile. CRP decreased from 2.2 to a value of 0.6. Plan: Continue dexamethasone 6 mg IV and remdesivir 100 mg q.day, both day 5. Continue baricitinib, day 2. Avoid fluid overload and wean FiO2 to maintain saturation 90-94%. 03/21/23: Patient tells me she continues to slowly improve. States she is 75% back to her baseline except for her severe shortness of breath the and dyspnea on exertion. White blood cell count is 5.7, creatinine 0.9. Patient remains off BiPAP for 72 hours. When I enter the room the patient was on 45 L, 50% FiO2 with saturations 94%. Plan: Continue dexamethasone 6 mg IV and remdesivir 100 mg q.day, both day 6. Continue baricitinib, day 3. Avoid fluid overload and wean FiO2 to maintain saturation 90-94%. Later today will try to switch patient to high-flow nasal cannula at 15 L. 03/22/23: The patient remained on noninvasive ventilation with the AVAPS mode with the above settings and 70% overnight. The patient is awake and communicative. She states she is breathing well on the noninvasive ventilator. Her saturations on 70% are 96%. I decreased her to 60% and her saturations were 92%. She has no wheezing on exam. Her white blood cell count is 6.0, creatinine is 0.9, her weight is 67.4. Cumulative diuresis since admission is 830 mL. Plan: Continue dexamethasone 6 mg IV and remdesivir 100 mg q.day, both day 7. Continue baricitinib, day 4. 03/23/23: The patient remained on noninvasive ventilation with the AVAPS mode with the above settings and 55% overnight. The patient is awake and communicative. She states she is breathing well on the noninvasive ventilator. Her saturations on 55% are 96%. I decreased her to 50% and her saturations were 92%. She has no wheezing on exam. Her white blood cell count is 5.5, creatinine is 1.0, her weight is 72.9. Cumulative diuresis since admission is 1.4 L mL. Plan: Minimal improvement. Continue dexamethasone 6 mg IV and remdesivir 100 mg q.day, both day 8. Continue baricitinib, day 5. Will follow with you. (2) Acute on chronic hypoxic respiratory failure: Code(s): J96.21 - Acute and chronic respiratory failure with hypoxia Status: Acute Assessment and Plan: At baseline patient is on 2 L nasal cannula at rest, with activity and with sleep. Started using supplemental O2 with exertion 2 years ago, has been using at night for about a year; since January 2023 admission and discharge she has used it around the clock. ABG on admission 03/16/2023 7.41/38/92 on 9 L nasal cannula. No evidence of hypercarbic respiratory failure. In addition to COVID pneumonia she may have pulmonary edema with her paroxysmal atrial fib. Heart rate is =110, still higher than desirable. Has been on cardizem for rate control. BNP was 1210 on Mar 6. 01/26/23 - echo: EF 65-70%, mildly increased LV wall thickness, LV diastolic
[2023-03-23] MEDS: APIXABAN 5 MG TABLET PO ×2 (11:00→21:08)
[2023-03-23] MEDS: MICONAZOLE NITRATE 2% CREAM 30 GM TUBE 1 APPLIC TOPICAL ×2 (11:00→21:09)
[2023-03-23] MEDS: levoFLOXacin 750 MG/D5W 150 ML 750 MG/150 ML BAG 100 MG IVPB (12:15)
[2023-03-23] MEDS: BARICITINIB 2 MG TABLET PO (13:05)
--- NOTE | 2023-03-23 18:08 | P.PNIM_ITS ---
Progress Note: A&P Assessment and Plan (1) COVID-19: Code(s): U07.1 - COVID-19 Status: Acute Assessment and Plan: * Continue remdesivir and dexamethasone (03/16 initated) * needing high flow oxygen slow improvement continue to wean off FIO2 * BiPAP settings adjusted as per Pulmonary (2) Acute exacerbation of chronic obstructive pulmonary disease (COPD): Code(s): J44.1 - Chronic obstructive pulmonary disease with (acute) exacerbation Status: Acute Assessment and Plan: * Continue steroids, bronchodilators (3) Acute on chronic hypoxic respiratory failure: Code(s): J96.21 - Acute and chronic respiratory failure with hypoxia Status: Acute Assessment and Plan: * diuresing well * on furosemide 40 mg IV bid * Monitor electrolytes * Strict input and output monitoring (4) Pneumonia: Code(s): J18.9 - Pneumonia, unspecified organism Status: Acute Assessment and Plan: * Patient has couple episodes of pneumonia in mid and late February as discussed with patient's daughter Cristel * Started patient on IV Levaquin and IV vancomycin pharmacy to dose based on renal functions * Nasal MRSA swab was negative hence vancomycin was discontinued * Continue with IV Levaquin ... Day # 3 (5) Paroxysmal atrial fibrillation: Code(s): I48.0 - Paroxysmal atrial fibrillation Status: Chronic Assessment and Plan: * Continue diltiazem, Eliquis, amiodarone (6) Coronary arteriosclerosis in [place] artery: Code(s): I25.10 - Atherosclerotic heart disease of [place] coronary artery without angina pectoris Status: Acute Assessment and Plan: * no chest pain mentioned (7) Anemia: Code(s): D64.9 - Anemia, unspecified Status: Chronic Assessment and Plan: * hb is 8 today continue to watch * Taking oral iron * Stool occult blood pending * Patient has the low iron and borderline ferritin levels * Patient started on IV Venofer 300 mg daily for 3 days Plan I spoke with patient's daughter Cristel on 03/21/2023 ... She states patient's POA is in the hospital Patient is a full code and has guarded long-term prognosis Need to have code to have discussion when patient's POA is available Patient requesting motion picture set up worker at the bedside which I requested the nursing to arrange ? Patient seen and examined at bedside during my morning rounds ? Collaborated with patient's nurse at the bedside in detail and addressed all concerns ? Labs, electrolytes, radiology, investigations and test results reviewed ? Consult/Nursing/Ancilliary notes on the chart reviewed and appreciated ? Spoke with patient's daughter Cristel on phone and answered all the questions that she had Repeat labs in a.m. Electrolyte replacement as per protocol. Patient will be monitored very closely on the floor. Further recommendations as per the hospital course. I am signing off. Patient's medical care will be taken over by my covering hospitalist attending in am. Time Spent With Patient Time with patient: 25 - 35 minutes Subjective Date/time seen: 03/23/23 18:08 Interval history: Patient seen and evaluated at the bedside. She is still on BiPAP. Pulmonary adjusting settings with a goal to wean her off. She is requesting a motion picture set up worker to speak with her. Review of Systems Review of Systems: ongoing sob on face mask All systems reviewed & are unremarkable except as noted in HPI and below Exam Narrative: HEENT: PERRL, sclerae nonicteric, pharyngeal
--- NOTE | 2023-03-23 18:08 | PM.IMPN ---
Progress Note: A&P Assessment and Plan (1) COVID-19: Code(s): U07.1 - COVID-19 Status: Acute Assessment and Plan: Continue remdesivir and dexamethasone (03/16 initated) needing high flow oxygen slow improvement continue to wean off FIO2 BiPAP settings adjusted as per Pulmonary (2) Acute exacerbation of chronic obstructive pulmonary disease (COPD): Code(s): J44.1 - Chronic obstructive pulmonary disease with (acute) exacerbation Status: Acute Assessment and Plan: Continue steroids, bronchodilators (3) Acute on chronic hypoxic respiratory failure: Code(s): J96.21 - Acute and chronic respiratory failure with hypoxia Status: Acute Assessment and Plan: diuresing well on furosemide 40 mg IV bid Monitor electrolytes Strict input and output monitoring (4) Pneumonia: Code(s): J18.9 - Pneumonia, unspecified organism Status: Acute Assessment and Plan: Patient has couple episodes of pneumonia in mid and late February as discussed with patient's daughter Cristel Started patient on IV Levaquin and IV vancomycin pharmacy to dose based on renal functions Nasal MRSA swab was negative hence vancomycin was discontinued Continue with IV Levaquin ... Day # 3 (5) Paroxysmal atrial fibrillation: Code(s): I48.0 - Paroxysmal atrial fibrillation Status: Chronic Assessment and Plan: Continue diltiazem, Eliquis, amiodarone (6) Coronary arteriosclerosis in [place] artery: Code(s): I25.10 - Atherosclerotic heart disease of [place] coronary artery without angina pectoris Status: Acute Assessment and Plan: no chest pain mentioned (7) Anemia: Code(s): D64.9 - Anemia, unspecified Status: Chronic Assessment and Plan: hb is 8 today continue to watch Taking oral iron Stool occult blood pending Patient has the low iron and borderline ferritin levels Patient started on IV Venofer 300 mg daily for 3 days Plan I spoke with patient's daughter Cristel on 03/21/2023 ... She states patient's POA is in the hospital Patient is a full code and has guarded long-term prognosis Need to have code to have discussion when patient's POA is available Patient requesting rate engineer at the bedside which I requested the nursing to arrange ? Patient seen and examined at bedside during my morning rounds ? Collaborated with patient's nurse at the bedside in detail and addressed all concerns ? Labs, electrolytes, radiology, investigations and test results reviewed ? Consult/Nursing/Ancilliary notes on the chart reviewed and appreciated ? Spoke with patient's daughter Cristel on phone and answered all the questions that she had Repeat labs in a.m. Electrolyte replacement as per protocol. Patient will be monitored very closely on the floor. Further recommendations as per the hospital course. I am signing off. Patient's medical care will be taken over by my covering hospitalist attending in am. Time Spent With Patient Time with patient: 25 - 35 minutes Subjective Date/time seen: 03/23/23 18:08 Interval history: Patient seen and evaluated at the bedside. She is still on BiPAP. Pulmonary adjusting settings with a goal to wean her off. She is requesting a rate engineer to speak with her. Review of Systems Review of Systems: ongoing sob on face mask All systems reviewed & are unremarkable except as noted in HPI and below Exam Narrative: HEENT: PERRL, sclerae nonicteric, pharyngeal mucosa pink and intact NECK: No JVD, adenopathy CHEST: COARSE BS WITH SCATTER RHONCHI, CRACKLES, EXPIRATORY WHEEZES HEART: NL S1/S2, regular, MURMUR NOT AUDIBLE ABDOMEN: BS+, soft, nontender, no mass, no bruits EXTREMITIES: No cyanosis, edema, or clubbing NEUROLOGIC: CN intact and symmetric to inspection. MUSCULOSKELETAL: Tone and strength symmetric. PSYCH: Alert. Oriented to person, place, and time. Objective Data Vital Signs Vital Signs: Shaye
[2023-03-23] MEDS: PRAVASTATIN SODIUM 20 MG TABLET 40 MG PO (21:08)
[2023-03-23] MEDS: ALPRAZolam (*CRX) 0.5 MG TABLET 1 MG PO (21:08)
[2023-03-23] MEDS: REMDESIVIR 100 MG/NS 250 ML 100 MG/250 ML BAG 250 MG IVPB (21:09)
[2023-03-24] VITALS (24 sets, daily range): BP systolic 94–114; BP diastolic 50–70; PULSE 70–89; RESP 14–24; TEMP 36.2–36.8; O2SAT 91–99; BMI 25.7
[2023-03-24] MEDS: ACETYLCYSTEINE 20% INHAL SOLN 800 MG/4 ML VIAL 200 MG INHALATION ×4 (02:41→22:17)
[2023-03-24] MEDS: ALBUTEROL SULFATE NEB 2.5 MG/3 ML INH INHALATION ×5 (02:41→22:17)
[2023-03-24] MEDS: IPRATROPIUM BR 0.02% INH SOLN 0.5 MG/2.5 ML VIAL INHALATION ×5 (02:41→22:17)
[2023-03-24 05:34] LABS: Basophils Percent Auto 0.1 % (0.2-1.2); Hematocrit 29.6 % (37.0-47.0); Hemoglobin 8.5 g/dL (12.0-15.0); Immature Granulocyte Absolute 0.17 K/mm3 (0.00-0.031); Immature Granulocyte Percent A 2.2 % (0-0.5); Lymphocytes Absolute Auto 0.75 K/mm3 (0.9-3.2); Lymphocytes Percent Auto 9.6 % (18.3-44.2); Mean Corpuscular HGB Conc 28.7 g/dl (32-36); Mean Corpuscular Hemoglobin 24.9 pg (26-34); Mean Corpuscular Volume 86.5 fl (80-100); Mean Platelet Volume 9.4 fl (7.4-10.4); Monocytes Absolute Auto 0.4 K/mm3 (0.1-0.6); Monocytes Percent Auto 4.6 % (2.6-8.5); Neutrophils Absolute Auto 6.5 K/mm3 (1.3-6.7); Neutrophils Percent Auto 83.5 % (45.5-73.1); Nucleated Red Blood Cells Absolute Auto 0.1 K/mm3 (0.0-0.012); Platelet Count Result 278 k/mm3 (150-375); Red Blood Count 3.42 M/mm3 (4.2-5.4); Red Cell Distribution Width 16.7 % (11.5-14.5); White Blood Count 7.8 K/mm3 (4.5-10.0)
[2023-03-24 05:47] LABS: Anion Gap 6 mmol/L (8-16); Blood Urea Nitrogen 23 mg/dL (7-17); Calcium 8.7 mg/dL (8.4-10.2); Carbon Dioxide 34 mmol/L (22-30); Chloride 97 mmol/L (98-107); Estimated CRCL calculation 35 ml/min; Estimated Glomerular Filt Rate 53; Glucose 149 mg/dL (65-110); Potassium 3.4 mmol/L (3.4-5.0); Sodium 137 mmol/L (137-145)
[2023-03-24 07:02] LABS: Anisocytosis 1+ (NORMAL); Platelet Estimate Adequate (Adequate); Schistocytes Rare (NORMAL)
[2023-03-24 07:03] LABS: Target Cells 1+ (NORMAL)
[2023-03-24] MEDS: DORNASE ALFA INH SOLN 1 MG/ML 2.5 ML AMP 2.5 MG INHALATION ×2 (08:47→22:17)
[2023-03-24] MEDS: APIXABAN 5 MG TABLET PO ×2 (09:00→20:41)
[2023-03-24] MEDS: POLYSACCHARIDE IRON COMPLEX 150 MG CAPSULE PO (09:00)
[2023-03-24] MEDS: guaiFENesin 12 HR 600 MG TABCR 1200 MG PO ×2 (09:00→20:41)
[2023-03-24] MEDS: CLOPIDOGREL BISULFATE 75 MG TABLET PO (09:01)
[2023-03-24] MEDS: dilTIAZem HCL CD 180 MG CAP.24HR 360 MG PO (09:01)
[2023-03-24] MEDS: COLESTIPOL HCL 1 GM TABLET 2 GM PO (09:03)
[2023-03-24] MEDS: ramipriL 5 MG CAPSULE PO (09:03)
[2023-03-24] MEDS: AMIODARONE HCL 100 MG TABLET PO (09:03)
[2023-03-24] MEDS: FUROSEMIDE INJ 40 MG/4 ML VIAL IV PUSH ×2 (09:04→17:00)
[2023-03-24] MEDS: IRON SUCROSE COMPLEX 300 MG in SODIUM CHLORIDE 0.9% IV 250 ML 176.67 MG IVPB (09:04)
[2023-03-24] MEDS: SERTRALINE HCL 50 MG TABLET 200 MG PO (09:04)
[2023-03-24] MEDS: MICONAZOLE NITRATE 2% CREAM 30 GM TUBE 1 APPLIC TOPICAL ×2 (09:05→20:42)
[2023-03-24] MEDS: ALPRAZolam (*CRX) 0.5 MG TABLET 1 MG PO ×2 (09:43→20:45)
--- NOTE | 2023-03-24 09:50 | PM.PNPUL ---
Progress Note: A&P Assessment and Plan (1) COVID-19: Code(s): U07.1 - COVID-19 Status: Acute Assessment and Plan: Patient tested positive for COVID-19 on 03/16/2023 and started on remdesivir, dexamethasone on 03/16/23. Procalcitonin 0.1 on 03/16/2023. Remdesivir for 10 days Unless he should recover and tolerate room air with rest, ambulation and while sleeping. - Dexamethasone 6 mg IV for 10 days - Continuous pulse oximetry - Avoid any fluid overload. - Albuterol inhaler Q 4 for now, no wheezes. -negative RSV and influenza 03/19/2023: Plan: Patient is required BiPAP and high-flow nasal cannula and per and IH treatment guidelines will add baricitinib and I spoke to pharmacy and to be dosed per renal function per Pharmacy. Keep saturations are 90-94% with nasal cannula up to 15 L, if fails then Airvo high flow nasal cannula. 03/20/23: Patient tells me she continues to improve. She states she has 50% back to her baseline. She has a cough and continued shortness of breath with activity. She denies hemoptysis. Her white blood cell count is 5.0, she is afebrile. CRP decreased from 2.2 to a value of 0.6. Plan: Continue dexamethasone 6 mg IV and remdesivir 100 mg q.day, both day 5. Continue baricitinib, day 2. Avoid fluid overload and wean FiO2 to maintain saturation 90-94%. 03/21/23: Patient tells me she continues to slowly improve. States she is 75% back to her baseline except for her severe shortness of breath the and dyspnea on exertion. White blood cell count is 5.7, creatinine 0.9. Patient remains off BiPAP for 72 hours. When I enter the room the patient was on 45 L, 50% FiO2 with saturations 94%. Plan: Continue dexamethasone 6 mg IV and remdesivir 100 mg q.day, both day 6. Continue baricitinib, day 3. Avoid fluid overload and wean FiO2 to maintain saturation 90-94%. Later today will try to switch patient to high-flow nasal cannula at 15 L. 03/22/23: The patient remained on noninvasive ventilation with the AVAPS mode with the above settings and 70% overnight. The patient is awake and communicative. She states she is breathing well on the noninvasive ventilator. Her saturations on 70% are 96%. I decreased her to 60% and her saturations were 92%. She has no wheezing on exam. Her white blood cell count is 6.0, creatinine is 0.9, her weight is 67.4. Cumulative diuresis since admission is 830 mL. Plan: Continue dexamethasone 6 mg IV and remdesivir 100 mg q.day, both day 7. Continue baricitinib, day 4. 03/23/23: The patient remained on noninvasive ventilation with the AVAPS mode with the above settings and 55% overnight. The patient is awake and communicative. She states she is breathing well on the noninvasive ventilator. Her saturations on 55% are 96%. I decreased her to 50% and her saturations were 92%. She has no wheezing on exam. Her white blood cell count is 5.5, creatinine is 1.0, her weight is 72.9. Cumulative diuresis since admission is 1.4 L mL. Plan: Minimal improvement. Continue dexamethasone 6 mg IV and remdesivir 100 mg q.day, both day 8. Continue baricitinib, day 5. 03/24: Patient tolerated being off the noninvasive ventilator throughout the day yesterday on high-flow 55 L and 73% FiO2. Patient wore the noninvasive ventilator with the AVAPS mode overnight and is currently on this. She is on 50% FiO2 with saturations 97%. Overall she says she feels about the same. Her white blood cell count is 7.8, creatinine is 1.0. Chest x-ray shows continued right middle lobe and left upper lobe consolidation. Plan: Continue dexamethasone 6 mg and remdesivir 100 both day 9, continue baricitinib, day 6. Will follow with you. (2) Acute on chronic hypoxic respiratory failure: Code(s): J96.21 - Acute and chronic respiratory failure with hypoxia Status: Acute Assessment and Plan: At baseline patient is on 2 L nasal cannula at rest, with activity and with sleep. Started using supplemental O2
--- NOTE | 2023-03-24 10:45 | PM.IMPN ---
Progress Note: A&P Assessment and Plan (1) COVID-19: Code(s): U07.1 - COVID-19 Status: Acute (2) Acute exacerbation of chronic obstructive pulmonary disease (COPD): Code(s): J44.1 - Chronic obstructive pulmonary disease with (acute) exacerbation Status: Acute (3) Acute on chronic hypoxic respiratory failure: Code(s): J96.21 - Acute and chronic respiratory failure with hypoxia Status: Acute (4) Atrial fibrillation with RVR: Code(s): I48.91 - Unspecified atrial fibrillation Status: Acute (5) COPD exacerbation: Code(s): J44.1 - Chronic obstructive pulmonary disease with (acute) exacerbation Status: Acute (6) Acute on chronic congestive heart failure with left ventricular diastolic dysfunction: Code(s): I50.33 - Acute on chronic diastolic (congestive) heart failure Status: Acute Plan (1) COVID-19: ?Code(s): U07.1 - COVID-19 ?Status:?Acute ?Assessment and Plan: Continue remdesivir and dexamethasone (/ initated) needing high flow oxygen slow improvement continue to wean off FIO2 BiPAP settings adjusted as per Pulmonary (2) Acute exacerbation of chronic obstructive pulmonary disease (COPD): ?Code(s): J44.1 - Chronic obstructive pulmonary disease with (acute) exacerbation ?Status:?Acute ?Assessment and Plan: Continue steroids, bronchodilators(3) Acute on chronic hypoxic respiratory failure: ?Code(s): J96.21 - Acute and chronic respiratory failure with hypoxia ?Status:?Acute ?Assessment and Plan: diuresing well on furosemide 40 mg IV bid Monitor electrolytes Strict input and output monitoring(4) Pneumonia: ?Code(s): J18.9 - Pneumonia, unspecified organism ?Status:?Acute ?Assessment and Plan: Patient has couple episodes of pneumonia in mid and late February as discussed with patient's daughter Cristel Started patient on IV Levaquin and IV vancomycin pharmacy to dose based on renal functions Nasal MRSA swab was negative hence vancomycin was discontinued Continue with IV Levaquin ... Day # 3(5) Paroxysmal atrial fibrillation: ?Code(s): I48.0 - Paroxysmal atrial fibrillation ?Status:?Chronic ?Assessment and Plan: Continue diltiazem, Eliquis, amiodarone(6) Coronary arteriosclerosis in [place] artery: ?Code(s): I25.10 - Atherosclerotic heart disease of [place] coronary artery without angina pectoris ?Status:?Acute ?Assessment and Plan: no chest pain mentioned(7) Anemia: ?Code(s): Acute on chronic diastolic heart failure severe pulmonary artery enlargement. ? 3. Left ventricular chamber dimension is normal. ? 4. Left ventricular systolic function is normal, estimated at 60-65%. ? 5. There is mildly increased left ventricular wall thickness. ? 6. The left ventricular diastolic function is grade II diastolic dysfunction. ? 7. The basal inferior wall is akinetic. ? 8. Left atrial chamber dimension is moderately enlarged. ? 9. Right atrial chamber dimension is mildly enlarged. ? 10. Right ventricular chamber dimension is mildly enlarged. ? 11. There is moderate aortic valve stenosis with a peak velocity of 224 cm/s, mean gradient of 11 mmHg, and aortic valve area of 1.5 cm2. on furosemide 40 mg IV bid D64.9 - Anemia, unspecified ?Status:?Chronic ?Assessment and Plan: hb is 8 today continue to watch Taking oral iron Stool occult blood pending Patient has the low iron and borderline ferritin levels Patient started on IV Venofer 300 mg daily for 3 days Subjective Date/time seen: 03/24/23 10:45 Interval history: I saw exam patient today. Patient still has a cough, basically no change from yesterday, patient wore the noninvasive ventilator with the AVAPS mode overnight and is currently on this.? She is on 50% FiO2 with saturations 97%.? Labs and image reviewed, her white blood cell count is 7.8, creatinine is 1.0.? Chest x-r
[2023-03-24] MEDS: BARICITINIB 2 MG TABLET PO (11:22)
[2023-03-24] MEDS: PRAVASTATIN SODIUM 20 MG TABLET 40 MG PO (20:41)
[2023-03-24] MEDS: REMDESIVIR 100 MG/NS 250 ML 100 MG/250 ML BAG 250 MG IVPB (20:42)
[2023-03-25] VITALS (22 sets, daily range): BP systolic 100–114; BP diastolic 49–70; PULSE 59–92; RESP 18–24; TEMP 36–36.7; O2SAT 82–99
[2023-03-25] MEDS: IPRATROPIUM BR 0.02% INH SOLN 0.5 MG/2.5 ML VIAL INHALATION ×5 (04:30→21:44)
[2023-03-25] MEDS: ACETYLCYSTEINE 20% INHAL SOLN 800 MG/4 ML VIAL 200 MG INHALATION ×4 (04:30→21:45)
[2023-03-25] MEDS: ALBUTEROL SULFATE NEB 2.5 MG/3 ML INH INHALATION ×5 (04:30→21:44)
[2023-03-25 05:25] LABS: Basophils Percent Auto 0.1 % (0.2-1.2); Hematocrit 29.5 % (37.0-47.0); Hemoglobin 8.6 g/dL (12.0-15.0); Immature Granulocyte Absolute 0.37 K/mm3 (0.00-0.031); Immature Granulocyte Percent A 4.3 % (0-0.5); Lymphocytes Absolute Auto 0.58 K/mm3 (0.9-3.2); Lymphocytes Percent Auto 6.7 % (18.3-44.2); Mean Corpuscular HGB Conc 29.2 g/dl (32-36); Mean Corpuscular Hemoglobin 24.8 pg (26-34); Mean Platelet Volume 9.5 fl (7.4-10.4); Monocytes Absolute Auto 0.3 K/mm3 (0.1-0.6); Monocytes Percent Auto 3.6 % (2.6-8.5); Neutrophils Absolute Auto 7.4 K/mm3 (1.3-6.7); Neutrophils Percent Auto 85.3 % (45.5-73.1); Nucleated Red Blood Cells Absolute Auto 0.2 K/mm3 (0.0-0.012); Nucleated Red Blood Cells Perc 1.7 % (0.0-0.2); Platelet Count Result 289 k/mm3 (150-375); Red Blood Count 3.47 M/mm3 (4.2-5.4); Red Cell Distribution Width 16.9 % (11.5-14.5); White Blood Count 8.7 K/mm3 (4.5-10.0)
--- NOTE | 2023-03-25 05:38 | PCRCNOTE ---
0000 updraft treatment was not given due to patient's last breathing treatment being given at 2217. Treatment to resume around 0400.
[2023-03-25 05:44] LABS: Alanine Aminotransferase 37 U/L (6-35); Albumin Level 3.4 g/dL (3.5-5.1); Alkaline Phosphatase 81 U/L (38-126); Anion Gap 6 mmol/L (8-16); Aspartate Amino Transferase 38 U/L (14-36); Bilirubin,Total 0.5 mg/dL (0.2-1.3); Blood Urea Nitrogen 24 mg/dL (7-17); Calcium 8.4 mg/dL (8.4-10.2); Carbon Dioxide 34 mmol/L (22-30); Chloride 96 mmol/L (98-107); Estimated CRCL calculation 35 ml/min; Estimated Glomerular Filt Rate 53; Glucose 177 mg/dL (65-110); Potassium 3.5 mmol/L (3.4-5.0); Sodium 136 mmol/L (137-145)
[2023-03-25] MEDS: DORNASE ALFA INH SOLN 1 MG/ML 2.5 ML AMP 2.5 MG INHALATION ×2 (07:45→21:44)
[2023-03-25 08:30] LABS: Hypochromasia 2+ (NORMAL); Platelet Estimate Adequate (Adequate); Schistocytes None Seen (NORMAL)
[2023-03-25 08:31] LABS: Polychromasia 1+ (NORMAL)
--- NOTE | 2023-03-25 08:42 | P.PNIM_ITS ---
Progress Note: A&P Assessment and Plan (1) COVID-19: Code(s): U07.1 - COVID-19 Status: Acute (2) Acute exacerbation of chronic obstructive pulmonary disease (COPD): Code(s): J44.1 - Chronic obstructive pulmonary disease with (acute) exacerbation Status: Acute (3) Acute on chronic hypoxic respiratory failure: Code(s): J96.21 - Acute and chronic respiratory failure with hypoxia Status: Acute (4) Atrial fibrillation with RVR: Code(s): I48.91 - Unspecified atrial fibrillation Status: Acute (5) Acute on chronic congestive heart failure with left ventricular diastolic dysfunction: Code(s): I50.33 - Acute on chronic diastolic (congestive) heart failure Status: Acute Plan (1) COVID-19: ?Code(s): U07.1 - COVID-19 ?Status:?Acute ?Assessment and Plan: * Continue remdesivir and dexamethasone (/ initated) * needing high flow oxygen slow improvement * BiPAP settings adjusted as per Pulmonary * (2) Acute exacerbation of chronic obstructive pulmonary disease (COPD): ?Code(s): J44.1 - Chronic obstructive pulmonary disease with (acute) exacerbation ?Status:?Acute ?Assessment and Plan: * Continue steroids, bronchodilators(3) Acute on chronic hypoxic respiratory failure: ?Code(s): J96.21 - Acute and chronic respiratory failure with hypoxia ?Status:?Acute ?Assessment and Plan: * diuresing well * on furosemide 40 mg IV bid * Monitor electrolytes * Strict input and output monitoring * * (4) Pneumonia: ?Code(s): J18.9 - Pneumonia, unspecified organism ?Status:?Acute ?Assessment and Plan: * Patient has couple episodes of pneumonia in mid and late February as discussed with patient's daughter Cristel * Started patient on IV Levaquin and IV vancomycin pharmacy to dose based on renal functions * Nasal MRSA swab was negative hence vancomycin was discontinued * Continue with IV Levaquin ... Day # 3 * (5) Paroxysmal atrial fibrillation: ?Code(s): I48.0 - Paroxysmal atrial fibrillation ?Status:?Chronic ?Assessment and Plan: * Continue diltiazem, Eliquis, amiodarone(6) Coronary arteriosclerosis in [place] artery: ?Code(s): I25.10 - Atherosclerotic heart disease of [place] coronary artery without angina pectoris ?Status:?Acute ?Assessment and Plan: * no chest pain mentioned(7) Anemia: ?Code(s): Acute on chronic diastolic heart failure severe pulmonary artery enlargement. ? 3. Left ventricular chamber dimension is normal. ? 4. Left ventricular systolic function is normal, estimated at 60-65%. ? 5. There is mildly increased left ventricular wall thickness. ? 6. The left ventricular diastolic function is grade II diastolic dysfunction. ? 7. The basal inferior wall is akinetic. ? 8. Left atrial chamber dimension is moderately enlarged. ? 9. Right atrial chamber dimension is mildly enlarged. ? 10. Right ventricular chamber dimension is mildly enlarged. ? 11. There is moderate aortic valve stenosis with a peak velocity of 224 cm/s, mean gradient of 11 mmHg, and aortic valve area of 1.5 cm2. on furosemide 40 mg IV bid D64.9 - Anemia, unspecified ?Status:?Chronic ?Assessment and Plan: * hb is 8 today continue to watch * Taking oral iron * Stool occult blood pending * Patient has the low iron and borderline ferritin levels * Patient started on IV Venofer 300 mg daily for 3 days Subjective Date/time seen: 03/25/23 08:42 Interval
--- NOTE | 2023-03-25 08:42 | PM.IMPN ---
Progress Note: A&P Assessment and Plan (1) COVID-19: Code(s): U07.1 - COVID-19 Status: Acute (2) Acute exacerbation of chronic obstructive pulmonary disease (COPD): Code(s): J44.1 - Chronic obstructive pulmonary disease with (acute) exacerbation Status: Acute (3) Acute on chronic hypoxic respiratory failure: Code(s): J96.21 - Acute and chronic respiratory failure with hypoxia Status: Acute (4) Atrial fibrillation with RVR: Code(s): I48.91 - Unspecified atrial fibrillation Status: Acute (5) Acute on chronic congestive heart failure with left ventricular diastolic dysfunction: Code(s): I50.33 - Acute on chronic diastolic (congestive) heart failure Status: Acute Plan (1) COVID-19: ?Code(s): U07.1 - COVID-19 ?Status:?Acute ?Assessment and Plan: Continue remdesivir and dexamethasone (/ initated) needing high flow oxygen slow improvement BiPAP settings adjusted as per Pulmonary (2) Acute exacerbation of chronic obstructive pulmonary disease (COPD): ?Code(s): J44.1 - Chronic obstructive pulmonary disease with (acute) exacerbation ?Status:?Acute ?Assessment and Plan: Continue steroids, bronchodilators(3) Acute on chronic hypoxic respiratory failure: ?Code(s): J96.21 - Acute and chronic respiratory failure with hypoxia ?Status:?Acute ?Assessment and Plan: diuresing well on furosemide 40 mg IV bid Monitor electrolytes Strict input and output monitoring (4) Pneumonia: ?Code(s): J18.9 - Pneumonia, unspecified organism ?Status:?Acute ?Assessment and Plan: Patient has couple episodes of pneumonia in mid and late February as discussed with patient's daughter Cristel Started patient on IV Levaquin and IV vancomycin pharmacy to dose based on renal functions Nasal MRSA swab was negative hence vancomycin was discontinued Continue with IV Levaquin ... Day # 3 (5) Paroxysmal atrial fibrillation: ?Code(s): I48.0 - Paroxysmal atrial fibrillation ?Status:?Chronic ?Assessment and Plan: Continue diltiazem, Eliquis, amiodarone(6) Coronary arteriosclerosis in [place] artery: ?Code(s): I25.10 - Atherosclerotic heart disease of [place] coronary artery without angina pectoris ?Status:?Acute ?Assessment and Plan: no chest pain mentioned(7) Anemia: ?Code(s): Acute on chronic diastolic heart failure severe pulmonary artery enlargement. ? 3. Left ventricular chamber dimension is normal. ? 4. Left ventricular systolic function is normal, estimated at 60-65%. ? 5. There is mildly increased left ventricular wall thickness. ? 6. The left ventricular diastolic function is grade II diastolic dysfunction. ? 7. The basal inferior wall is akinetic. ? 8. Left atrial chamber dimension is moderately enlarged. ? 9. Right atrial chamber dimension is mildly enlarged. ? 10. Right ventricular chamber dimension is mildly enlarged. ? 11. There is moderate aortic valve stenosis with a peak velocity of 224 cm/s, mean gradient of 11 mmHg, and aortic valve area of 1.5 cm2. on furosemide 40 mg IV bid D64.9 - Anemia, unspecified ?Status:?Chronic ?Assessment and Plan: hb is 8 today continue to watch Taking oral iron Stool occult blood pending Patient has the low iron and borderline ferritin levels Patient started on IV Venofer 300 mg daily for 3 days Subjective Date/time seen: 03/25/23 08:42 Interval history: When I saw examined patient, patient was on high-flow nasal cannula with 50 L and 50% FiO2 patient feels better today, patient still has cough with scant phlegm .? Labs reviewed, white blood cell count is 8.7, creatinine is 1.0, cumulative diuresis since admission is 1.6 L.? Her weight is 68 kg. Exam Narrative: HEENT: PERRL, sclerae nonicteric, pharyngeal mucosa pink and intact NECK: No JVD, adenopathy CHEST: COARSE BS WITH SCATTER RHONCHI, CRACKLES, E
[2023-03-25] MEDS: IRON SUCROSE COMPLEX 300 MG in SODIUM CHLORIDE 0.9% IV 250 ML 176.67 MG IVPB (09:13)
[2023-03-25] MEDS: ramipriL 5 MG CAPSULE PO (09:16)
[2023-03-25] MEDS: FUROSEMIDE INJ 40 MG/4 ML VIAL IV PUSH ×2 (09:16→17:49)
[2023-03-25] MEDS: CLOPIDOGREL BISULFATE 75 MG TABLET PO (09:17)
[2023-03-25] MEDS: SERTRALINE HCL 50 MG TABLET 200 MG PO (09:17)
[2023-03-25] MEDS: APIXABAN 5 MG TABLET PO ×2 (09:17→20:56)
[2023-03-25] MEDS: COLESTIPOL HCL 1 GM TABLET 2 GM PO (09:17)
[2023-03-25] MEDS: AMIODARONE HCL 100 MG TABLET PO (09:17)
[2023-03-25] MEDS: dilTIAZem HCL CD 180 MG CAP.24HR 360 MG PO (09:18)
[2023-03-25] MEDS: POLYSACCHARIDE IRON COMPLEX 150 MG CAPSULE PO (09:18)
[2023-03-25] MEDS: guaiFENesin 12 HR 600 MG TABCR 1200 MG PO ×2 (09:18→20:56)
[2023-03-25] MEDS: MICONAZOLE NITRATE 2% CREAM 30 GM TUBE 1 APPLIC TOPICAL ×2 (09:19→20:56)
[2023-03-25] MEDS: ALPRAZolam (*CRX) 0.5 MG TABLET 1 MG PO (09:25)
--- NOTE | 2023-03-25 10:33 | P.PNPL_ITS ---
Progress Note: A&P Assessment and Plan (1) COVID-19: Code(s): U07.1 - COVID-19 Status: Acute Assessment and Plan: Patient tested positive for COVID-19 on 03/16/2023 and started on remdesivir, dexamethasone on 03/16/23. Procalcitonin 0.1 on 03/16/2023. Remdesivir for 10 days Unless he should recover and tolerate room air with rest, ambulation and while sleeping. - Dexamethasone 6 mg IV for 10 days - Continuous pulse oximetry - Avoid any fluid overload. - Albuterol inhaler Q 4 for now, no wheezes. -negative RSV and influenza 03/19/2023: Plan: Patient is required BiPAP and high-flow nasal cannula and per and IH treatment guidelines will add baricitinib and I spoke to pharmacy and to be dosed per renal function per Pharmacy. Keep saturations are 90-94% with nasal cannula up to 15 L, if fails then Airvo high flow nasal cannula. 03/20/23: Patient tells me she continues to improve. She states she has 50% back to her baseline. She has a cough and continued shortness of breath with activity. She denies hemoptysis. Her white blood cell count is 5.0, she is afebrile. CRP decreased from 2.2 to a value of 0.6. Plan: Continue dexamethasone 6 mg IV and remdesivir 100 mg q.day, both day 5. Continue baricitinib, day 2. Avoid fluid overload and wean FiO2 to maintain saturation 90-94%. 03/21/23: Patient tells me she continues to slowly improve. States she is 75% back to her baseline except for her severe shortness of breath the and dyspnea on exertion. White blood cell count is 5.7, creatinine 0.9. Patient remains off BiPAP for 72 hours. When I enter the room the patient was on 45 L, 50% FiO2 with saturations 94%. Plan: Continue dexamethasone 6 mg IV and remdesivir 100 mg q.day, both day 6. Continue baricitinib, day 3. Avoid fluid overload and wean FiO2 to maintain sat uration 90-94%. Later today will try to switch patient to high-flow nasal cannula at 15 L. 03/22/23: The patient remained on noninvasive ventilation with the AVAPS mode with the above settings and 70% overnight. The patient is awake and communicative. She states she is breathing well on the noninvasive ventilator. Her saturations on 70% are 96%. I decreased her to 60% and her saturations were 92%. She has no wheezing on exam. Her white blood cell count is 6.0, creatinine is 0.9, her weight is 67.4. Cumulative diuresis since admission is 830 mL. Plan: Continue dexamethasone 6 mg IV and remdesivir 100 mg q.day, both day 7. Continue baricitinib, day 4. 03/23/23: The patient remained on noninvasive ventilation with the AVAPS mode with the above settings and 55% overnight. The patient is awake and communicative. She states she is breathing well on the noninvasive ventilator. Her saturations on 55% are 96%. I decreased her to 50% and her saturations were 92%. She has no wheezing on exam. Her white blood cell count is 5.5, creatinine is 1.0, her weight is 72.9. Cumulative diuresis since admission is 1.4 L mL. Plan: Minimal improvement. Continue dexamethasone 6 mg IV and remdesivir 100 mg q.day, both day 8. Continue baricitinib, day 5. 03/24: Patient tolerated being off the noninvasive ventilator throughout the day yesterday on high-flow 55 L and 73% FiO2. Patient wore the noninvasive ventilator with the AVAPS mode overnight and is currently on this. She is on 50% FiO2 with saturations 97%. Overall she says she feels about the same. Her white blood cell count is 7.8, creatinine is 1.0. Chest x-ray shows continued right middle lobe and left upper lobe consolidation. Plan: Continue dexamethasone 6 mg and remdesivir 100 both day 9, continue baricitinib, day 6. Later in the day I had a discussion with johan
[2023-03-25] MEDS: BARICITINIB 2 MG TABLET PO (12:15)
[2023-03-25] MEDS: levoFLOXacin 750 MG TABLET PO (15:31)
[2023-03-25] MEDS: PRAVASTATIN SODIUM 20 MG TABLET 40 MG PO (20:57)
[2023-03-25] MEDS: REMDESIVIR 100 MG/NS 250 ML 100 MG/250 ML BAG 250 MG IVPB (20:57)
[2023-03-26] VITALS (23 sets, daily range): BP systolic 98–114; BP diastolic 48–67; PULSE 65–91; RESP 12–20; TEMP 35.7–36.7; O2SAT 88–97
[2023-03-26] MEDS: IPRATROPIUM BR 0.02% INH SOLN 0.5 MG/2.5 ML VIAL INHALATION ×5 (04:00→21:55)
[2023-03-26] MEDS: ACETYLCYSTEINE 20% INHAL SOLN 800 MG/4 ML VIAL 200 MG INHALATION ×4 (04:00→21:54)
[2023-03-26] MEDS: ALBUTEROL SULFATE NEB 2.5 MG/3 ML INH INHALATION ×5 (04:00→21:55)
[2023-03-26 04:45] LABS: Hematocrit 29.9 % (37.0-47.0); Hemoglobin 8.8 g/dL (12.0-15.0); Mean Corpuscular HGB Conc 29.4 g/dl (32-36); Mean Corpuscular Hemoglobin 25.1 pg (26-34); Mean Corpuscular Volume 85.2 fl (80-100); Mean Platelet Volume 9.4 fl (7.4-10.4); Platelet Count Result 309 k/mm3 (150-375); Red Blood Count 3.51 M/mm3 (4.2-5.4); White Blood Count 9.7 K/mm3 (4.5-10.0)
[2023-03-26 04:55] LABS: Anion Gap 5 mmol/L (8-16); Blood Urea Nitrogen 27 mg/dL (7-17); Calcium 8.5 mg/dL (8.4-10.2); Carbon Dioxide 35 mmol/L (22-30); Chloride 98 mmol/L (98-107); Estimated CRCL calculation 35 ml/min; Estimated Glomerular Filt Rate 53; Glucose 198 mg/dL (65-110); Potassium 3.5 mmol/L (3.4-5.0); Sodium 138 mmol/L (137-145)
[2023-03-26 05:36] LABS: Anisocytosis 3+ (NORMAL); Lymphocytes Absolute Manual 0.19 K/mm3 (1.1-4.5); Metamyelocytes Percent 1 %; Monocytes Absolute Manual 0.29 K/mm3 (0.1-0.90); Monocytes Percent Manual 3 % (3-9); Neutrophils Percent Manual 94 % (46-73); Ovalocytes 1+ (NORMAL); Platelet Estimate Adequate (Adequate); Target Cells 1+ (NORMAL); Tear Drop Cells 1+ (NORMAL); Total Cells Counted 100
[2023-03-26 05:37] LABS: Poikilocytosis 2+ (NORMAL); Schistocytes None Seen (NORMAL)
[2023-03-26] MEDS: HYDROcodone/acetaminophen (*CRX) 5-325 MG TABLET 1 TAB PO (06:18)
[2023-03-26] MEDS: DORNASE ALFA INH SOLN 1 MG/ML 2.5 ML AMP 2.5 MG INHALATION ×2 (08:34→21:55)
[2023-03-26] MEDS: COLESTIPOL HCL 1 GM TABLET 2 GM PO (10:05)
[2023-03-26] MEDS: ALPRAZolam (*CRX) 0.5 MG TABLET 1 MG PO (10:05)
[2023-03-26] MEDS: APIXABAN 5 MG TABLET PO ×2 (10:05→22:43)
[2023-03-26] MEDS: dilTIAZem HCL CD 180 MG CAP.24HR 360 MG PO (10:06)
--- NOTE | 2023-03-26 10:06 | P.PNIM_ITS ---
Progress Note: A&P Assessment and Plan (1) COVID-19: Code(s): U07.1 - COVID-19 Status: Acute (2) Acute exacerbation of chronic obstructive pulmonary disease (COPD): Code(s): J44.1 - Chronic obstructive pulmonary disease with (acute) exacerbation Status: Acute (3) Acute on chronic hypoxic respiratory failure: Code(s): J96.21 - Acute and chronic respiratory failure with hypoxia Status: Acute (4) Atrial fibrillation with RVR: Code(s): I48.91 - Unspecified atrial fibrillation Status: Acute (5) Acute on chronic congestive heart failure with left ventricular diastolic dysfunction: Code(s): I50.33 - Acute on chronic diastolic (congestive) heart failure Status: Acute Plan (1) COVID-19: ?Code(s): U07.1 - COVID-19 ?Status:?Acute ?Assessment and Plan: * Continue remdesivir and dexamethasone (03/16 initated) * needing high flow oxygen slow improvement * BiPAP settings adjusted as per Pulmonary * (2) Acute exacerbation of chronic obstructive pulmonary disease (COPD): ?Code(s): J44.1 - Chronic obstructive pulmonary disease with (acute) exacerbation ?Status:?Acute ?Assessment and Plan: * Continue steroids, bronchodilators(3) Acute on chronic hypoxic respiratory failure: ?Code(s): J96.21 - Acute and chronic respiratory failure with hypoxia ?Status:?Acute ?Assessment and Plan: * diuresing well * on furosemide 40 mg IV bid * Monitor electrolytes * Strict input and output monitoring * * (4) Pneumonia: ?Code(s): J18.9 - Pneumonia, unspecified organism ?Status:?Acute ?Assessment and Plan: * Patient has couple episodes of pneumonia in mid and late February as discussed with patient's daughter Cristel * Started patient on IV Levaquin and IV vancomycin pharmacy to dose based on renal functions * Nasal MRSA swab was negative hence vancomycin was discontinued * Continue with IV Levaquin q.48h per Dr. Donato * (5) Paroxysmal atrial fibrillation: ?Code(s): I48.0 - Paroxysmal atrial fibrillation ?Status:?Chronic ?Assessment and Plan: * Continue diltiazem, Eliquis, amiodarone(6) Coronary arteriosclerosis in [place] artery: ?Code(s): I25.10 - Atherosclerotic heart disease of [place] coronary artery without angina pectoris ?Status:?Acute ?Assessment and Plan: * no chest pain mentioned(7) Anemia: ?Code(s): Acute on chronic diastolic heart failure severe pulmonary artery enlargement. ? 3. Left ventricular chamber dimension is normal. ? 4. Left ventricular systolic function is normal, estimated at 60-65%. ? 5. There is mildly increased left ventricular wall thickness. ? 6. The left ventricular diastolic function is grade II diastolic dysfunction. ? 7. The basal inferior wall is akinetic. ? 8. Left atrial chamber dimension is moderately enlarged. ? 9. Right atrial chamber dimension is mildly enlarged. ? 10. Right ventricular chamber dimension is mildly enlarged. ? 11. There is moderate aortic valve stenosis with a peak velocity of 224 cm/s, mean gradient of 11 mmHg, and aortic valve area of 1.5 cm2. on furosemide 40 mg IV bid Negative input output balance of 590 mL D64.9 - Anemia, unspecified ?Status:?Chronic ?Assessment and Plan: * hb is 8 today continue to watch * Taking oral iron * Stool occult blood pending * Patient has the low iron and borderline ferritin levels * Patient started on IV Venofer 300 mg daily for 3 days, now patient is on iron polysa
--- NOTE | 2023-03-26 10:06 | PM.IMPN ---
Progress Note: A&P Assessment and Plan (1) COVID-19: Code(s): U07.1 - COVID-19 Status: Acute (2) Acute exacerbation of chronic obstructive pulmonary disease (COPD): Code(s): J44.1 - Chronic obstructive pulmonary disease with (acute) exacerbation Status: Acute (3) Acute on chronic hypoxic respiratory failure: Code(s): J96.21 - Acute and chronic respiratory failure with hypoxia Status: Acute (4) Atrial fibrillation with RVR: Code(s): I48.91 - Unspecified atrial fibrillation Status: Acute (5) Acute on chronic congestive heart failure with left ventricular diastolic dysfunction: Code(s): I50.33 - Acute on chronic diastolic (congestive) heart failure Status: Acute Plan (1) COVID-19: ?Code(s): U07.1 - COVID-19 ?Status:?Acute ?Assessment and Plan: Continue remdesivir and dexamethasone (03/16 initated) needing high flow oxygen slow improvement BiPAP settings adjusted as per Pulmonary (2) Acute exacerbation of chronic obstructive pulmonary disease (COPD): ?Code(s): J44.1 - Chronic obstructive pulmonary disease with (acute) exacerbation ?Status:?Acute ?Assessment and Plan: Continue steroids, bronchodilators(3) Acute on chronic hypoxic respiratory failure: ?Code(s): J96.21 - Acute and chronic respiratory failure with hypoxia ?Status:?Acute ?Assessment and Plan: diuresing well on furosemide 40 mg IV bid Monitor electrolytes Strict input and output monitoring (4) Pneumonia: ?Code(s): J18.9 - Pneumonia, unspecified organism ?Status:?Acute ?Assessment and Plan: Patient has couple episodes of pneumonia in mid and late February as discussed with patient's daughter Cristel Started patient on IV Levaquin and IV vancomycin pharmacy to dose based on renal functions Nasal MRSA swab was negative hence vancomycin was discontinued Continue with IV Levaquin q.48h per Dr. Donato (5) Paroxysmal atrial fibrillation: ?Code(s): I48.0 - Paroxysmal atrial fibrillation ?Status:?Chronic ?Assessment and Plan: Continue diltiazem, Eliquis, amiodarone(6) Coronary arteriosclerosis in [place] artery: ?Code(s): I25.10 - Atherosclerotic heart disease of [place] coronary artery without angina pectoris ?Status:?Acute ?Assessment and Plan: no chest pain mentioned(7) Anemia: ?Code(s): Acute on chronic diastolic heart failure severe pulmonary artery enlargement. ? 3. Left ventricular chamber dimension is normal. ? 4. Left ventricular systolic function is normal, estimated at 60-65%. ? 5. There is mildly increased left ventricular wall thickness. ? 6. The left ventricular diastolic function is grade II diastolic dysfunction. ? 7. The basal inferior wall is akinetic. ? 8. Left atrial chamber dimension is moderately enlarged. ? 9. Right atrial chamber dimension is mildly enlarged. ? 10. Right ventricular chamber dimension is mildly enlarged. ? 11. There is moderate aortic valve stenosis with a peak velocity of 224 cm/s, mean gradient of 11 mmHg, and aortic valve area of 1.5 cm2. on furosemide 40 mg IV bid Negative input output balance of 590 mL D64.9 - Anemia, unspecified ?Status:?Chronic ?Assessment and Plan: hb is 8 today continue to watch Taking oral iron Stool occult blood pending Patient has the low iron and borderline ferritin levels Patient started on IV Venofer 300 mg daily for 3 days, now patient is on iron polysaccharide 150 mg daily Subjective Date/time seen: 03/26/23 10:06 Interval history: I saw exam patient today. Patient feels better but the patient still needs high-flow oxygen few to 45% patient has no obvious respiratory distress.? Patient denies chest pain abdomen pain, nausea vomiting diarrhea. Exam Narrative: HEENT: PERRL, sclerae nonicteric, pharyngeal mucosa pink and intact NECK: No JVD, adenopathy CHEST: COARSE BS WITH SCATTER RH
[2023-03-26] MEDS: SERTRALINE HCL 50 MG TABLET 200 MG PO (10:07)
[2023-03-26] MEDS: POLYSACCHARIDE IRON COMPLEX 150 MG CAPSULE PO (10:07)
[2023-03-26] MEDS: BARICITINIB 2 MG TABLET PO (10:08)
[2023-03-26] MEDS: AMIODARONE HCL 100 MG TABLET PO (10:08)
[2023-03-26] MEDS: ramipriL 5 MG CAPSULE PO (10:08)
[2023-03-26] MEDS: CLOPIDOGREL BISULFATE 75 MG TABLET PO (10:08)
[2023-03-26] MEDS: FUROSEMIDE INJ 40 MG/4 ML VIAL IV PUSH ×2 (10:09→17:19)
[2023-03-26] MEDS: MICONAZOLE NITRATE 2% CREAM 30 GM TUBE 1 APPLIC TOPICAL (10:09)
[2023-03-26] MEDS: guaiFENesin 12 HR 600 MG TABCR 1200 MG PO ×2 (10:09→22:44)
--- NOTE | 2023-03-26 18:10 | PM.PNPUL ---
Progress Note: A&P Assessment and Plan (1) COVID-19: Code(s): U07.1 - COVID-19 Status: Acute Assessment and Plan: Patient tested positive for COVID-19 on 03/16/2023 and started on remdesivir, dexamethasone on 03/16/23. Procalcitonin 0.1 on 03/16/2023. Remdesivir for 10 days Unless he should recover and tolerate room air with rest, ambulation and while sleeping. - Dexamethasone 6 mg IV for 10 days - Continuous pulse oximetry - Avoid any fluid overload. - Albuterol inhaler Q 4 for now, no wheezes. -negative RSV and influenza 03/19/2023: Plan: Patient is required BiPAP and high-flow nasal cannula and per and IH treatment guidelines will add baricitinib and I spoke to pharmacy and to be dosed per renal function per Pharmacy. Keep saturations are 90-94% with nasal cannula up to 15 L, if fails then Airvo high flow nasal cannula. 03/20/23: Patient tells me she continues to improve. She states she has 50% back to her baseline. She has a cough and continued shortness of breath with activity. She denies hemoptysis. Her white blood cell count is 5.0, she is afebrile. CRP decreased from 2.2 to a value of 0.6. Plan: Continue dexamethasone 6 mg IV and remdesivir 100 mg q.day, both day 5. Continue baricitinib, day 2. Avoid fluid overload and wean FiO2 to maintain saturation 90-94%. 03/21/23: Patient tells me she continues to slowly improve. States she is 75% back to her baseline except for her severe shortness of breath the and dyspnea on exertion. White blood cell count is 5.7, creatinine 0.9. Patient remains off BiPAP for 72 hours. When I enter the room the patient was on 45 L, 50% FiO2 with saturations 94%. Plan: Continue dexamethasone 6 mg IV and remdesivir 100 mg q.day, both day 6. Continue baricitinib, day 3. Avoid fluid overload and wean FiO2 to maintain saturation 90-94%. Later today will try to switch patient to high-flow nasal cannula at 15 L. 03/22/23: The patient remained on noninvasive ventilation with the AVAPS mode with the above settings and 70% overnight. The patient is awake and communicative. She states she is breathing well on the noninvasive ventilator. Her saturations on 70% are 96%. I decreased her to 60% and her saturations were 92%. She has no wheezing on exam. Her white blood cell count is 6.0, creatinine is 0.9, her weight is 67.4. Cumulative diuresis since admission is 830 mL. Plan: Continue dexamethasone 6 mg IV and remdesivir 100 mg q.day, both day 7. Continue baricitinib, day 4. 03/23/23: The patient remained on noninvasive ventilation with the AVAPS mode with the above settings and 55% overnight. The patient is awake and communicative. She states she is breathing well on the noninvasive ventilator. Her saturations on 55% are 96%. I decreased her to 50% and her saturations were 92%. She has no wheezing on exam. Her white blood cell count is 5.5, creatinine is 1.0, her weight is 72.9. Cumulative diuresis since admission is 1.4 L mL. Plan: Minimal improvement. Continue dexamethasone 6 mg IV and remdesivir 100 mg q.day, both day 8. Continue baricitinib, day 5. 03/24: Patient tolerated being off the noninvasive ventilator throughout the day yesterday on high-flow 55 L and 73% FiO2. Patient wore the noninvasive ventilator with the AVAPS mode overnight and is currently on this. She is on 50% FiO2 with saturations 97%. Overall she says she feels about the same. Her white blood cell count is 7.8, creatinine is 1.0. Chest x-ray shows continued right middle lobe and left upper lobe consolidation. Plan: Continue dexamethasone 6 mg and remdesivir 100 both day 9, continue baricitinib, day 6. Later in the day I had a discussion with daughter and 2 other family members regarding updates on her respiratory issues including COPD, COVID pneumonia, fluid overload with bilateral pleural effusions, mucus plugging with atelectasis and possible pneumonia. Patient has multiple pulmonary issues with minimal pr
[2023-03-26] MEDS: PRAVASTATIN SODIUM 20 MG TABLET 40 MG PO (22:43)
[2023-03-27] VITALS (30 sets, daily range): BP systolic 94–122; BP diastolic 42–57; PULSE 66–91; RESP 16–20; TEMP 36.3–36.9; O2SAT 90–96
[2023-03-27] MEDS: IPRATROPIUM BR 0.02% INH SOLN 0.5 MG/2.5 ML VIAL INHALATION ×6 (01:50→20:34)
[2023-03-27] MEDS: ALBUTEROL SULFATE NEB 2.5 MG/3 ML INH INHALATION ×6 (01:50→20:34)
[2023-03-27] MEDS: ACETYLCYSTEINE 20% INHAL SOLN 800 MG/4 ML VIAL 200 MG INHALATION ×3 (01:51→17:08)
[2023-03-27] MEDS: MICONAZOLE NITRATE 2% CREAM 30 GM TUBE 1 APPLIC TOPICAL (04:18)
[2023-03-27] MEDS: DORNASE ALFA INH SOLN 1 MG/ML 2.5 ML AMP 2.5 MG INHALATION ×2 (08:22→20:34)
[2023-03-27] MEDS: dilTIAZem HCL CD 180 MG CAP.24HR 360 MG PO (09:00)
[2023-03-27] MEDS: guaiFENesin 12 HR 600 MG TABCR 1200 MG PO ×2 (09:00→21:11)
[2023-03-27] MEDS: COLESTIPOL HCL 1 GM TABLET 2 GM PO (09:00)
[2023-03-27] MEDS: AMIODARONE HCL 100 MG TABLET PO (09:00)
[2023-03-27] MEDS: POLYSACCHARIDE IRON COMPLEX 150 MG CAPSULE PO (09:00)
[2023-03-27] MEDS: ramipriL 5 MG CAPSULE PO (09:00)
[2023-03-27] MEDS: FUROSEMIDE INJ 40 MG/4 ML VIAL IV PUSH ×2 (09:00→18:02)
[2023-03-27] MEDS: SERTRALINE HCL 50 MG TABLET 200 MG PO (09:00)
[2023-03-27] MEDS: CLOPIDOGREL BISULFATE 75 MG TABLET PO (09:00)
--- NOTE | 2023-03-27 09:31 | PM.IMPN ---
Progress Note: A&P Assessment and Plan (1) COVID-19: Code(s): U07.1 - COVID-19 Status: Acute (2) Acute exacerbation of chronic obstructive pulmonary disease (COPD): Code(s): J44.1 - Chronic obstructive pulmonary disease with (acute) exacerbation Status: Acute (3) Acute on chronic hypoxic respiratory failure: Code(s): J96.21 - Acute and chronic respiratory failure with hypoxia Status: Acute (4) Atrial fibrillation with RVR: Code(s): I48.91 - Unspecified atrial fibrillation Status: Acute (5) Acute on chronic congestive heart failure with left ventricular diastolic dysfunction: Code(s): I50.33 - Acute on chronic diastolic (congestive) heart failure Status: Acute Plan (1) COVID-19: ?Code(s): U07.1 - COVID-19 ?Status:?Acute ?Assessment and Plan: Continue remdesivir and dexamethasone (03/16 initated) was on BiPAP needing high flow oxygen slow improvement (2) Acute exacerbation of chronic obstructive pulmonary disease (COPD): ?Code(s): J44.1 - Chronic obstructive pulmonary disease with (acute) exacerbation ?Status:?Acute ?Assessment and Plan: Continue steroids, bronchodilators Mucomyst and dornase for her atelectasis and/or mucus plugging. Continue guaifenesin 1200 mg p.o. b.i.d. today.? She is using a vibratory [place] valve.? (3) Acute on chronic hypoxic respiratory failure: ?Code(s): J96.21 - Acute and chronic respiratory failure with hypoxia ?Status:?Acute ?Assessment and Plan: diuresing well on furosemide 40 mg IV bid Monitor electrolytes Strict input and output monitoring (4) Pneumonia: ?Code(s): J18.9 - Pneumonia, unspecified organism ?Status:?Acute ?Assessment and Plan: Patient has couple episodes of pneumonia in mid and late February as discussed with patient's daughter Cristel Started patient on IV Levaquin and IV vancomycin pharmacy to dose based on renal functions Nasal MRSA swab was negative hence vancomycin was discontinued Continue with IV Levaquin q.48h per Dr. Donato (5) Paroxysmal atrial fibrillation: ?Code(s): I48.0 - Paroxysmal atrial fibrillation ?Status:?Chronic ?Assessment and Plan: Continue diltiazem, Eliquis, amiodarone(6) Coronary arteriosclerosis in [place] artery: ?Code(s): I25.10 - Atherosclerotic heart disease of [place] coronary artery without angina pectoris ?Status:?Acute ?Assessment and Plan: no chest pain mentioned(7) Anemia: ?Code(s): Acute on chronic diastolic heart failure severe pulmonary artery enlargement. ? 3. Left ventricular chamber dimension is normal. ? 4. Left ventricular systolic function is normal, estimated at 60-65%. ? 5. There is mildly increased left ventricular wall thickness. ? 6. The left ventricular diastolic function is grade II diastolic dysfunction. ? 7. The basal inferior wall is akinetic. ? 8. Left atrial chamber dimension is moderately enlarged. ? 9. Right atrial chamber dimension is mildly enlarged. ? 10. Right ventricular chamber dimension is mildly enlarged. ? 11. There is moderate aortic valve stenosis with a peak velocity of 224 cm/s, mean gradient of 11 mmHg, and aortic valve area of 1.5 cm2. 03/26 cxr: 1: Interval progression of bilateral airspace disease which may represent pneumonia or edema. 2: Small pleural effusions. on furosemide 40 mg IV bid Negative input output balance of 1.4L D64.9 - Anemia, unspecified ?Status:?Chronic ?Assessment and Plan: hb is 8 today continue to watch Taking oral iron Stool occult blood pending Patient has the low iron and borderline ferritin levels Patient started on IV Venofer 300 mg daily for 3 days, now patient is on iron polysaccharide 150 mg daily Subjective Date/time seen: 03/27/23 09:31 Interval history: ?She is feeling gradually better, patient is on high-flow oxygen with 45 L/min and 50% FiO2, saturat
[2023-03-27] MEDS: APIXABAN 5 MG TABLET PO ×2 (09:41→21:10)
[2023-03-27] MEDS: levoFLOXacin 750 MG TABLET PO (16:43)
[2023-03-27] MEDS: PRAVASTATIN SODIUM 20 MG TABLET 40 MG PO (21:11)
[2023-03-27] MEDS: ALPRAZolam (*CRX) 0.5 MG TABLET 1 MG PO (22:49)
[2023-03-28] VITALS (26 sets, daily range): BP systolic 93–103; BP diastolic 41–58; PULSE 69–95; RESP 16–19; TEMP 36.2–36.9; O2SAT 90–98
--- NOTE | 2023-03-28 | PCRCNOTE ---
Pt refused to wear BIPAP at this time
[2023-03-28] MEDS: POLYSACCHARIDE IRON COMPLEX 150 MG CAPSULE PO (09:19)
[2023-03-28] MEDS: APIXABAN 5 MG TABLET PO ×2 (09:19→20:52)
[2023-03-28] MEDS: COLESTIPOL HCL 1 GM TABLET 2 GM PO (09:19)
[2023-03-28] MEDS: ramipriL 5 MG CAPSULE PO (09:19)
[2023-03-28] MEDS: CLOPIDOGREL BISULFATE 75 MG TABLET PO (09:19)
[2023-03-28] MEDS: SERTRALINE HCL 50 MG TABLET 200 MG PO (09:19)
[2023-03-28] MEDS: dilTIAZem HCL CD 180 MG CAP.24HR 360 MG PO (09:20)
[2023-03-28] MEDS: AMIODARONE HCL 100 MG TABLET PO (09:20)
[2023-03-28] MEDS: guaiFENesin 12 HR 600 MG TABCR 1200 MG PO ×2 (09:20→20:53)
--- NOTE | 2023-03-28 09:21 | PC.NURSE ---
Called Dr. Camacho about patients blood pressures, holding morning lasix
[2023-03-28] MEDS: ALBUTEROL SULFATE NEB 2.5 MG/3 ML INH INHALATION ×3 (11:52→20:16)
[2023-03-28] MEDS: IPRATROPIUM BR 0.02% INH SOLN 0.5 MG/2.5 ML VIAL INHALATION ×3 (11:52→20:16)
[2023-03-28] MEDS: VORICONAZOLE 200 MG TABLET 400 MG PO ×2 (12:21→20:54)
--- NOTE | 2023-03-28 13:55 | PCPTNOTE ---
Attempted PT evaluation, pt refused. RN aware.
--- NOTE | 2023-03-28 15:37 | ECG_ITS ---
Measurements Intervals [place] Rate: 75 P: [place]: 0 QRS: 26 QRSD: 96 T: -10 QT: 307 QTc: 345 Interpretive Statements ATRIAL FIBRILLATION BASELINE ARTIFACT SEPTAL MYOCARDIAL INFARCTION , PROBABLY OLD [40+ ms Q WAVE IN V1/V2] ABNORMAL ECG COMPARED TO ECG 03/16/2023 09:14:47 NO SIGNIFICANT CHANGES Electronically Signed On 03-28-2023 17:28:35 [employer] by Tanmay Biggs M.D.
--- NOTE | 2023-03-28 15:57 | PM.IMPN ---
Progress Note: A&P Assessment and Plan (1) COVID-19: Code(s): U07.1 - COVID-19 Status: Acute (2) Acute exacerbation of chronic obstructive pulmonary disease (COPD): Code(s): J44.1 - Chronic obstructive pulmonary disease with (acute) exacerbation Status: Acute (3) Acute on chronic hypoxic respiratory failure: Code(s): J96.21 - Acute and chronic respiratory failure with hypoxia Status: Acute (4) Atrial fibrillation with RVR: Code(s): I48.91 - Unspecified atrial fibrillation Status: Acute (5) Acute on chronic congestive heart failure with left ventricular diastolic dysfunction: Code(s): I50.33 - Acute on chronic diastolic (congestive) heart failure Status: Acute Plan (1) COVID-19: ?Code(s): U07.1 - COVID-19 ?Status:?Acute ?Assessment and Plan: Continue remdesivir and dexamethasone (03/16 initated) was on BiPAP needing high flow oxygen slow improvement (2) Acute exacerbation of chronic obstructive pulmonary disease (COPD): ?Code(s): J44.1 - Chronic obstructive pulmonary disease with (acute) exacerbation ?Status:?Acute ?Assessment and Plan: Continue steroids, bronchodilators Mucomyst and dornase for her atelectasis and/or mucus plugging. Continue guaifenesin 1200 mg p.o. b.i.d. .? She is using a vibratory Cornet valve.? (3) Acute on chronic hypoxic respiratory failure: ?Code(s): J96.21 - Acute and chronic respiratory failure with hypoxia ?Status:?Acute ?Assessment and Plan: diuresing well on furosemide 40 mg IV bid, dc on 03/28 Monitor electrolytes Strict input and output monitoring (4) Pneumonia: ?Code(s): J18.9 - Pneumonia, unspecified organism ?Status:?Acute ?Assessment and Plan: Patient has couple episodes of pneumonia in mid and late February as discussed with patient's daughter Cristel Started patient on IV Levaquin and IV vancomycin pharmacy to dose based on renal functions Nasal MRSA swab was negative hence vancomycin was discontinued Changed to iV Levaquin q.48h per Dr. Donato Completed antibiotics treatment (5) Paroxysmal atrial fibrillation: ?Code(s): I48.0 - Paroxysmal atrial fibrillation ?Status:?Chronic ?Assessment and Plan: Continue diltiazem, Eliquis, amiodarone (6) Coronary arteriosclerosis in [place] artery: ?Code(s): I25.10 - Atherosclerotic heart disease of [place] coronary artery without angina pectoris ?Status:?Acute ?Assessment and Plan: no chest pain mentioned(7) Anemia: ?Code(s): Acute on chronic diastolic heart failure severe pulmonary artery enlargement. ? 3. Left ventricular chamber dimension is normal. ? 4. Left ventricular systolic function is normal, estimated at 60-65%. ? 5. There is mildly increased left ventricular wall thickness. ? 6. The left ventricular diastolic function is grade II diastolic dysfunction. ? 7. The basal inferior wall is akinetic. ? 8. Left atrial chamber dimension is moderately enlarged. ? 9. Right atrial chamber dimension is mildly enlarged. ? 10. Right ventricular chamber dimension is mildly enlarged. ? 11. There is moderate aortic valve stenosis with a peak velocity of 224 cm/s, mean gradient of 11 mmHg, and aortic valve area of 1.5 cm2. 03/26 cxr: 1: Interval progression of bilateral airspace disease which may represent pneumonia or edema. 2: Small pleural effusions. on furosemide 40 mg IV bid Negative input output balance of 1.4L Discontinue Lasix 03/28, compensated, blood pressure on lower side D64.9 - Anemia, unspecified ?Status:?Chronic ?Assessment and Plan: hb stable, on baseline, no obvious bleeding, Taking oral iron Schistocytes not detected Stool occult blood pending Patient has the low iron and borderline ferritin levels Patient started on IV Venofer 300 mg daily for 3 days, now patient is on iron polysaccharide 150 mg daily Subjective Oj
[2023-03-28] MEDS: polyethylene glycoL 3350 17 GM POWD.PACK PO (18:06)
[2023-03-28] MEDS: DORNASE ALFA INH SOLN 1 MG/ML 2.5 ML AMP 2.5 MG INHALATION (20:16)
[2023-03-28] MEDS: PRAVASTATIN SODIUM 20 MG TABLET 40 MG PO (20:52)
[2023-03-28] MEDS: ALPRAZolam (*CRX) 0.5 MG TABLET 1 MG PO (20:53)
--- NOTE | 2023-03-28 22:21 | PM.PNPUL ---
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 We will know in a few days if this is Aspergillus or another mold, and we will see if she is any better treating with voriconazole. All the COVID treatments are finshed. (2) COVID-19: Code(s): U07.1 - COVID-19 Status: Acute Assessment and Plan: Patient tested positive for COVID-19 on 03/16/2023 and started on remdesivir, dexamethasone on 03/16/23. Procalcitonin 0.1 on 03/16/2023. Remdesivir for 10 days Unless he should recover and tolerate room air with rest, ambulation and while sleeping. - Dexamethasone 6 mg IV for 10 days - Continuous pulse oximetry - Avoid any fluid overload. - Albuterol inhaler Q 4 for now, no wheezes. -negative RSV and influenza 03/19/2023: Plan: Patient is required BiPAP and high-flow nasal cannula and per and IH treatment guidelines will add baricitinib and I spoke to pharmacy and to be dosed per renal function per Pharmacy. Keep saturations are 90-94% with nasal cannula up to 15 L, if fails then Airvo high flow nasal cannula. 03/20/23: Patient tells me she continues to improve. She states she has 50% back to her baseline. She has a cough and continued shortness of breath with activity. She denies hemoptysis. Her white blood cell count is 5.0, she is afebrile. CRP decreased from 2.2 to a value of 0.6. Plan: Continue dexamethasone 6 mg IV and remdesivir 100 mg q.day, both day 5. Continue baricitinib, day 2. Avoid fluid overload and wean FiO2 to maintain saturation 90-94%. 03/21/23: Patient tells me she continues to slowly improve. States she is 75% back to her baseline except for her severe shortness of breath the and dyspnea on exertion. White blood cell count is 5.7, creatinine 0.9. Patient remains off BiPAP for 72 hours. When I enter the room the patient was on 45 L, 50% FiO2 with saturations 94%. Plan: Continue dexamethasone 6 mg IV and remdesivir 100 mg q.day, both day 6. Continue baricitinib, day 3. Avoid fluid overload and wean FiO2 to maintain saturation 90-94%. Later today will try to switch patient to high-flow nasal cannula at 15 L. 03/22/23: The patient remained on noninvasive ventilation with the AVAPS mode with the above settings and 70% overnight. The patient is awake and communicative. She states she is breathing well on the noninvasive ventilator. Her saturations on 70% are 96%. I decreased her to 60% and her saturations were 92%. She has no wheezing on exam. Her white blood cell count is 6.0, creatinine is 0.9, her weight is 67.4. Cumulative diuresis since admission is 830 mL. Plan: Continue dexamethasone 6 mg IV and remdesivir 100 mg q.day, both day 7. Continue baricitinib, day 4. 03/23/23: The patient remained on noninvasive ventilation with the AVAPS mode with the above settings and 55% overnight. The patient is awake and communicative. She states she is breathing well on the noninvasive ventilator. Her saturations on 55% are 96%. I decreased her to 50% and her saturations were 92%. She has no wheezing on exam. Her white blood cell count is 5.5, creatinine is 1.0, her weight is 72.9. Cumulative diuresis since admission is 1.4 L mL. Plan: Minimal improvement. Continue dexamethasone 6 mg IV and remdesivir 100 mg q.day, both day 8. Continue baricitinib, day 5. 03/24: Patient tolerated being off the noninvasive ventilator throughout the day yesterday on high-flow 55 L and 73% FiO2. Patient wore the noninvasive ventilator with the AVAPS mode overnight and is currently on this. She is on 50% F
[2023-03-29] VITALS (24 sets, daily range): BP systolic 93–115; BP diastolic 42–71; PULSE 67–112; RESP 18–22; TEMP 36.7–37.3; O2SAT 92–99
[2023-03-29] MEDS: ALBUTEROL SULFATE NEB 2.5 MG/3 ML INH INHALATION ×4 (07:57→21:20)
[2023-03-29] MEDS: IPRATROPIUM BR 0.02% INH SOLN 0.5 MG/2.5 ML VIAL INHALATION ×4 (07:57→21:20)
[2023-03-29] MEDS: DORNASE ALFA INH SOLN 1 MG/ML 2.5 ML AMP 2.5 MG INHALATION ×2 (07:58→21:20)
--- NOTE | 2023-03-29 08:52 | PM.IMPN ---
Progress Note: A&P Assessment and Plan (1) COVID-19: Code(s): U07.1 - COVID-19 Status: Acute (2) Acute exacerbation of chronic obstructive pulmonary disease (COPD): Code(s): J44.1 - Chronic obstructive pulmonary disease with (acute) exacerbation Status: Acute (3) Acute on chronic hypoxic respiratory failure: Code(s): J96.21 - Acute and chronic respiratory failure with hypoxia Status: Acute (4) Atrial fibrillation with RVR: Code(s): I48.91 - Unspecified atrial fibrillation Status: Acute (5) Acute on chronic congestive heart failure with left ventricular diastolic dysfunction: Code(s): I50.33 - Acute on chronic diastolic (congestive) heart failure Status: Acute Plan (1) COVID-19: ?Code(s): U07.1 - COVID-19 ?Status:?Acute ?Assessment and Plan: Continue remdesivir and dexamethasone (03/16 initated) was on BiPAP needing high flow oxygen slow improvement (2) Acute exacerbation of chronic obstructive pulmonary disease (COPD): ?Code(s): J44.1 - Chronic obstructive pulmonary disease with (acute) exacerbation ?Status:?Acute ?Assessment and Plan: Continue steroids, bronchodilators Mucomyst and dornase for her atelectasis and/or mucus plugging. Continue guaifenesin 1200 mg p.o. b.i.d. .? She is using a vibratory Cornet valve.? (3) Acute on chronic hypoxic respiratory failure: ?Code(s): J96.21 - Acute and chronic respiratory failure with hypoxia ?Status:?Acute ?Assessment and Plan: diuresing well on furosemide 40 mg IV bid, dc on 03/28 Monitor electrolytes Strict input and output monitoring (4) Pneumonia: ?Code(s): J18.9 - Pneumonia, unspecified organism ?Status:?Acute ?Assessment and Plan: Patient has couple episodes of pneumonia in mid and late February as discussed with patient's daughter Cristel Started patient on IV Levaquin and IV vancomycin pharmacy to dose based on renal functions Nasal MRSA swab was negative hence vancomycin was discontinued Changed to iV Levaquin q.48h per Dr. Donato Completed antibiotics treatment Dr Liz suspects that she may have secondary Aspergillus? infection with COVID; oral voriconazole started on 03/28.? (5) Paroxysmal atrial fibrillation: ?Code(s): I48.0 - Paroxysmal atrial fibrillation ?Status:?Chronic ?Assessment and Plan: Continue diltiazem, Eliquis, amiodarone (6) Coronary arteriosclerosis in [place] artery: ?Code(s): I25.10 - Atherosclerotic heart disease of [place] coronary artery without angina pectoris ?Status:?Acute ?Assessment and Plan: no chest pain mentioned(7) Anemia: ?Code(s): Acute on chronic diastolic heart failure severe pulmonary artery enlargement. ? 3. Left ventricular chamber dimension is normal. ? 4. Left ventricular systolic function is normal, estimated at 60-65%. ? 5. There is mildly increased left ventricular wall thickness. ? 6. The left ventricular diastolic function is grade II diastolic dysfunction. ? 7. The basal inferior wall is akinetic. ? 8. Left atrial chamber dimension is moderately enlarged. ? 9. Right atrial chamber dimension is mildly enlarged. ? 10. Right ventricular chamber dimension is mildly enlarged. ? 11. There is moderate aortic valve stenosis with a peak velocity of 224 cm/s, mean gradient of 11 mmHg, and aortic valve area of 1.5 cm2. 03/26 cxr: 1: Interval progression of bilateral airspace disease which may represent pneumonia or edema. 2: Small pleural effusions. on furosemide 40 mg IV bid Negative input output balance of 1.4L Discontinue Lasix 03/28, compensated, blood pressure on lower side D64.9 - Anemia, unspecified ?Status:?Chronic ?Assessment and Plan: hb stable, on baseline, no obvious bleeding, Taking oral iron Schistocytes not detected Stool occult blood pending Patient has the low iron and borderline ferritin levels Patien
[2023-03-29] MEDS: guaiFENesin 12 HR 600 MG TABCR 1200 MG PO ×2 (09:54→20:31)
[2023-03-29] MEDS: VORICONAZOLE 200 MG TABLET PO ×2 (09:54→20:32)
[2023-03-29] MEDS: APIXABAN 5 MG TABLET PO ×2 (09:54→20:32)
[2023-03-29] MEDS: POLYSACCHARIDE IRON COMPLEX 150 MG CAPSULE PO (09:54)
[2023-03-29] MEDS: CLOPIDOGREL BISULFATE 75 MG TABLET PO (09:54)
[2023-03-29] MEDS: SERTRALINE HCL 50 MG TABLET 200 MG PO (09:55)
[2023-03-29] MEDS: polyethylene glycoL 3350 17 GM POWD.PACK PO (09:55)
--- NOTE | 2023-03-29 11:08 | PCNFU ---
Nutrition Follow-Up Complete: Suboptimal po intake related to appetite as evidenced by charted intake Goal:PO intake greater than 50% of meals Pt is meeting goal. Continue with same goal. Pt current nutrition is Heart healthy, ensure compact BID. Nutrition recommendation: continue with current plan of care Last recorded weight is 73.2 kg. Bowel Motility: No BM recorded at this time Labs Reviewed: Hgb:8.8, HCT:29.9, GFR:53, BUN:27, Glu:198 Meds Noted: Eliquis, lasix Skin: No skin issues noted Additional Notes: pt continues on a heart healthy diet, intake improved to 50-100% most meals. Wt stable. Continue to encourage good po intake. Monitor intake, wt, labs. Follow up in 7 days.
[2023-03-29] MEDS: PRAVASTATIN SODIUM 20 MG TABLET 40 MG PO (20:31)
[2023-03-29] MEDS: ALPRAZolam (*CRX) 0.5 MG TABLET 1 MG PO (20:36)
[2023-03-30] VITALS (25 sets, daily range): BP systolic 98–119; BP diastolic 41–63; PULSE 20–109; RESP 18–24; TEMP 36.6–37.2; O2SAT 88–100
[2023-03-30] MEDS: ALBUTEROL SULFATE NEB 2.5 MG/3 ML INH INHALATION ×3 (08:01→20:43)
[2023-03-30] MEDS: IPRATROPIUM BR 0.02% INH SOLN 0.5 MG/2.5 ML VIAL INHALATION ×3 (08:01→20:42)
[2023-03-30] MEDS: DORNASE ALFA INH SOLN 1 MG/ML 2.5 ML AMP 2.5 MG INHALATION ×2 (08:22→20:43)
--- NOTE | 2023-03-30 09:00 | PCOTNOTE ---
Attempted to see Patient at this time. Patient unavailable due to having a care provider in with Patient at this time. Will check back at a later time.
--- NOTE | 2023-03-30 09:54 | PCPTNOTE ---
Patient refused treatment this session. Patient reported she did not want to do therapy at this time. Educated patient on the importance of therapy and gave encouragement, patient continued to refuse.
[2023-03-30] MEDS: POLYSACCHARIDE IRON COMPLEX 150 MG CAPSULE PO (11:00)
[2023-03-30] MEDS: CLOPIDOGREL BISULFATE 75 MG TABLET PO (11:01)
[2023-03-30] MEDS: AMIODARONE HCL 100 MG TABLET PO (11:01)
[2023-03-30] MEDS: VORICONAZOLE 200 MG TABLET PO ×2 (11:01→20:40)
[2023-03-30] MEDS: guaiFENesin 12 HR 600 MG TABCR 1200 MG PO ×2 (11:01→20:39)
[2023-03-30] MEDS: SERTRALINE HCL 50 MG TABLET 200 MG PO (11:01)
[2023-03-30] MEDS: APIXABAN 5 MG TABLET PO (11:01)
--- NOTE | 2023-03-30 11:19 | PM.PNPUL ---
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 We will know in a few days if this is Aspergillus or another mold, and we will see if she is any better treating with voriconazole. All the COVID treatments are finshed. 03/30: On voriconazole day 3. Awaiting ID of mold. Plan: I will obtain a CT scan of the chest to reassess her infiltrates. Discussed with Dr. Camacho, will follow with you. (2) COVID-19: Code(s): U07.1 - COVID-19 Status: Acute Assessment and Plan: Patient tested positive for COVID-19 on 03/16/2023 and started on remdesivir, dexamethasone on 03/16/23. Procalcitonin 0.1 on 03/16/2023. Remdesivir for 10 days Unless he should recover and tolerate room air with rest, ambulation and while sleeping. - Dexamethasone 6 mg IV for 10 days - Continuous pulse oximetry - Avoid any fluid overload. - Albuterol inhaler Q 4 for now, no wheezes. -negative RSV and influenza 03/19/2023: Plan: Patient is required BiPAP and high-flow nasal cannula and per and IH treatment guidelines will add baricitinib and I spoke to pharmacy and to be dosed per renal function per Pharmacy. Keep saturations are 90-94% with nasal cannula up to 15 L, if fails then Airvo high flow nasal cannula. 03/20/23: Patient tells me she continues to improve. She states she has 50% back to her baseline. She has a cough and continued shortness of breath with activity. She denies hemoptysis. Her white blood cell count is 5.0, she is afebrile. CRP decreased from 2.2 to a value of 0.6. Plan: Continue dexamethasone 6 mg IV and remdesivir 100 mg q.day, both day 5. Continue baricitinib, day 2. Avoid fluid overload and wean FiO2 to maintain saturation 90-94%. 03/21/23: Patient tells me she continues to slowly improve. States she is 75% back to her baseline except for her severe shortness of breath the and dyspnea on exertion. White blood cell count is 5.7, creatinine 0.9. Patient remains off BiPAP for 72 hours. When I enter the room the patient was on 45 L, 50% FiO2 with saturations 94%. Plan: Continue dexamethasone 6 mg IV and remdesivir 100 mg q.day, both day 6. Continue baricitinib, day 3. Avoid fluid overload and wean FiO2 to maintain saturation 90-94%. Later today will try to switch patient to high-flow nasal cannula at 15 L. 03/22/23: The patient remained on noninvasive ventilation with the AVAPS mode with the above settings and 70% overnight. The patient is awake and communicative. She states she is breathing well on the noninvasive ventilator. Her saturations on 70% are 96%. I decreased her to 60% and her saturations were 92%. She has no wheezing on exam. Her white blood cell count is 6.0, creatinine is 0.9, her weight is 67.4. Cumulative diuresis since admission is 830 mL. Plan: Continue dexamethasone 6 mg IV and remdesivir 100 mg q.day, both day 7. Continue baricitinib, day 4. 03/23/23: The patient remained on noninvasive ventilation with the AVAPS mode with the above settings and 55% overnight. The patient is awake and communicative. She states she is breathing well on the noninvasive ventilator. Her saturations on 55% are 96%. I decreased her to 50% and her saturations were 92%. She has no wheezing on exam. Her white blood cell count is 5.5, creatinine is 1.0, her weight is 72.9. Cumulative diuresis since admission is 1.4 L mL. Plan: Minimal improvement. Continue dexamethasone 6 mg IV and remdesivir 100 mg q.day, both day 8. Continue baricitinib, day 5. 03/24: Patient tolerated being off the noninvasive ventilator throughout the day yesterday on high-flow 55 L and 73
--- NOTE | 2023-03-30 15:51 | P.PNIM_ITS ---
Progress Note: A&P Assessment and Plan (1) COVID-19: Code(s): U07.1 - COVID-19 Status: Acute (2) Acute exacerbation of chronic obstructive pulmonary disease (COPD): Code(s): J44.1 - Chronic obstructive pulmonary disease with (acute) exacerbation Status: Acute (3) Acute on chronic hypoxic respiratory failure: Code(s): J96.21 - Acute and chronic respiratory failure with hypoxia Status: Acute (4) Atrial fibrillation with RVR: Code(s): I48.91 - Unspecified atrial fibrillation Status: Acute (5) Acute on chronic congestive heart failure with left ventricular diastolic dysfunction: Code(s): I50.33 - Acute on chronic diastolic (congestive) heart failure Status: Acute Plan (1) COVID-19: ?Code(s): U07.1 - COVID-19 ?Status:?Acute ?Assessment and Plan: * Continue remdesivir and dexamethasone (03/16 initated) * was on BiPAP * needing high flow oxygen slow improvement (2) Acute exacerbation of chronic obstructive pulmonary disease (COPD): ?Code(s): J44.1 - Chronic obstructive pulmonary disease with (acute) exacerbation ?Status:?Acute ?Assessment and Plan: * Continue steroids, bronchodilators * Mucomyst and dornase for her atelectasis and/or mucus plugging. Continue guaifenesin 1200 mg p.o. b.i.d. .? She is using a vibratory Cornet valve.? (3) Acute on chronic hypoxic respiratory failure: ?Code(s): J96.21 - Acute and chronic respiratory failure with hypoxia ?Status:?Acute ?Assessment and Plan: * diuresing well * on furosemide 40 mg IV bid, dc on 03/28 * Monitor electrolytes * Strict input and output monitoring * Hold oral Lasix now because of soft blood pressure * (4) Pneumonia: ?Code(s): J18.9 - Pneumonia, unspecified organism ?Status:?Acute ?Assessment and Plan: * Patient has couple episodes of pneumonia in mid and late February as discussed with patient's daughter Cristel * Started patient on IV Levaquin and IV vancomycin pharmacy to dose based on renal functions * Nasal MRSA swab was negative hence vancomycin was discontinued * Changed to iV Levaquin q.48h per Dr. Donato * Completed antibiotics treatment * Dr Liz suspects that she may have secondary Aspergillus? infection with CO VID; oral voriconazole started on 03/28.? * (5) Paroxysmal atrial fibrillation: ?Code(s): I48.0 - Paroxysmal atrial fibrillation ?Status:?Chronic ?Assessment and Plan: * hols diltiazem because blood pressure is soft * Continue eliquis, amiodarone * (6) Coronary arteriosclerosis in [place] artery: ?Code(s): I25.10 - Atherosclerotic heart disease of [place] coronary artery without angina pectoris ?Status:?Acute ?Assessment and Plan: * no chest pain mentioned(7) Anemia: ?Code(s): Acute on chronic diastolic heart failure severe pulmonary artery enlargement. ? 3. Left ventricular chamber dimension is normal. ? 4. Left ventricular systolic function is normal, estimated at 60-65%. ? 5. There is mildly increased left ventricular wall thickness. ? 6. The left ventricular diastolic function is grade II diastolic dysfunction. ? 7. The basal inferior wall is akinetic. ? 8. Left atrial chamber dimension is moderately enlarged. ? 9. Right atrial chamber dimension is mildly enlarged. ? 10. Right ventricular chamber dimension is mildly enlarged. ? 11. There is moderate aortic valve stenosis with a peak velocity of 224 cm/s, mean gradient of 11 mmHg, and aortic valve area of 1.5 cm2. 12/
[2023-03-30] MEDS: ACETAMINOPHEN 325 MG TABLET 650 MG PO (17:18)
[2023-03-30] MEDS: SENNA/DOCUSATE SODIUM TABLET 1 TAB PO (17:21)
[2023-03-30] MEDS: ALPRAZolam (*CRX) 0.5 MG TABLET 1 MG PO (20:39)
[2023-03-30] MEDS: PRAVASTATIN SODIUM 20 MG TABLET 40 MG PO (20:40)
[2023-03-31] VITALS (25 sets, daily range): BP systolic 97–112; BP diastolic 48–76; PULSE 76–103; RESP 18–24; TEMP 35.8–36.9; O2SAT 94–100
[2023-03-31 04:08] LABS: Alanine Aminotransferase 20 U/L (6-35); Alkaline Phosphatase 80 U/L (38-126); Anion Gap 5 mmol/L (8-16); Aspartate Amino Transferase 22 U/L (14-36); Bilirubin,Total 0.7 mg/dL (0.2-1.3); Blood Urea Nitrogen 20 mg/dL (7-17); Calcium 8.4 mg/dL (8.4-10.2); Carbon Dioxide 29 mmol/L (22-30); Chloride 101 mmol/L (98-107); Estimated CRCL calculation 35 ml/min; Estimated Glomerular Filt Rate 53; Glucose 113 mg/dL (65-110); Potassium 3.6 mmol/L (3.4-5.0); Sodium 135 mmol/L (137-145)
[2023-03-31] MEDS: IPRATROPIUM BR 0.02% INH SOLN 0.5 MG/2.5 ML VIAL INHALATION ×4 (08:20→19:53)
[2023-03-31] MEDS: ALBUTEROL SULFATE NEB 2.5 MG/3 ML INH INHALATION ×4 (08:20→19:53)
[2023-03-31] MEDS: DORNASE ALFA INH SOLN 1 MG/ML 2.5 ML AMP 2.5 MG INHALATION ×2 (08:31→19:53)
[2023-03-31] MEDS: dilTIAZem HCL CD 180 MG CAP.24HR 360 MG PO (09:18)
[2023-03-31] MEDS: SERTRALINE HCL 50 MG TABLET 200 MG PO (09:18)
[2023-03-31] MEDS: guaiFENesin 12 HR 600 MG TABCR 1200 MG PO ×2 (09:21→20:35)
[2023-03-31] MEDS: VORICONAZOLE 200 MG TABLET PO ×2 (09:21→20:35)
[2023-03-31] MEDS: AMIODARONE HCL 100 MG TABLET PO (09:22)
[2023-03-31] MEDS: SENNA/DOCUSATE SODIUM TABLET 1 TAB PO ×2 (09:22→16:59)
[2023-03-31] MEDS: POLYSACCHARIDE IRON COMPLEX 150 MG CAPSULE PO (09:22)
[2023-03-31] MEDS: CLOPIDOGREL BISULFATE 75 MG TABLET PO (09:23)
--- NOTE | 2023-03-31 11:34 | PM.IMPN ---
Progress Note: A&P Assessment and Plan (1) COVID-19: Code(s): U07.1 - COVID-19 Status: Acute (2) Acute exacerbation of chronic obstructive pulmonary disease (COPD): Code(s): J44.1 - Chronic obstructive pulmonary disease with (acute) exacerbation Status: Acute (3) Acute on chronic hypoxic respiratory failure: Code(s): J96.21 - Acute and chronic respiratory failure with hypoxia Status: Acute (4) Atrial fibrillation with RVR: Code(s): I48.91 - Unspecified atrial fibrillation Status: Acute (5) Acute on chronic congestive heart failure with left ventricular diastolic dysfunction: Code(s): I50.33 - Acute on chronic diastolic (congestive) heart failure Status: Acute Plan (1) COVID-19: ?Code(s): U07.1 - COVID-19 ?Status:?Acute ?Assessment and Plan: Continue remdesivir and dexamethasone (03/16 initated) was on BiPAP needing high flow oxygen slow improvement (2) Acute exacerbation of chronic obstructive pulmonary disease (COPD): ?Code(s): J44.1 - Chronic obstructive pulmonary disease with (acute) exacerbation ?Status:?Acute ?Assessment and Plan: Continue steroids, bronchodilators Mucomyst and dornase for her atelectasis and/or mucus plugging. Continue guaifenesin 1200 mg p.o. b.i.d. .? She is using a vibratory Cornet valve.? (3) Acute on chronic hypoxic respiratory failure: ?Code(s): J96.21 - Acute and chronic respiratory failure with hypoxia ?Status:?Acute ?Assessment and Plan: diuresing well on furosemide 40 mg IV bid, dc on 03/28 Monitor electrolytes Strict input and output monitoring Hold oral Lasix now because of soft blood pressure (4) Pneumonia: ?Code(s): J18.9 - Pneumonia, unspecified organism ?Status:?Acute ?Assessment and Plan: Patient has couple episodes of pneumonia in mid and late February as discussed with patient's daughter Cristel Started patient on IV Levaquin and IV vancomycin pharmacy to dose based on renal functions Nasal MRSA swab was negative hence vancomycin was discontinued Changed to iV Levaquin q.48h per Dr. Donato Completed antibiotics treatment Dr Liz suspects that she may have secondary Aspergillus? infection with COVID; oral voriconazole started on 03/28.? (5) Paroxysmal atrial fibrillation: ?Code(s): I48.0 - Paroxysmal atrial fibrillation ?Status:?Chronic ?Assessment and Plan: hols diltiazem because blood pressure is soft Continue eliquis, amiodarone (6) Coronary arteriosclerosis in [place] artery: ?Code(s): I25.10 - Atherosclerotic heart disease of [place] coronary artery without angina pectoris ?Status:?Acute ?Assessment and Plan: no chest pain mentioned(7) Anemia: ?Code(s): Acute on chronic diastolic heart failure severe pulmonary artery enlargement. ? 3. Left ventricular chamber dimension is normal. ? 4. Left ventricular systolic function is normal, estimated at 60-65%. ? 5. There is mildly increased left ventricular wall thickness. ? 6. The left ventricular diastolic function is grade II diastolic dysfunction. ? 7. The basal inferior wall is akinetic. ? 8. Left atrial chamber dimension is moderately enlarged. ? 9. Right atrial chamber dimension is mildly enlarged. ? 10. Right ventricular chamber dimension is mildly enlarged. ? 11. There is moderate aortic valve stenosis with a peak velocity of 224 cm/s, mean gradient of 11 mmHg, and aortic valve area of 1.5 cm2. 03/26 cxr: 1: Interval progression of bilateral airspace disease which may represent pneumonia or edema. 2: Small pleural effusions. on furosemide 40 mg IV bid Negative input output balance of 1.4L Discontinue Lasix 03/28, compensated, blood pressure on lower side D64.9 - Anemia, unspecified ?Status:?Chronic ?Assessment and Plan: hb stable, on baseline, no obvious bleeding, Taking oral iron Schistocytes not detected Stool o
[2023-03-31 17:39] LABS: Basophils Percent Auto 0.1 % (0.2-1.2); Eosinophils Absolute Auto 0.1 K/mm3 (0-0.3); Eosinophils Percent Auto 0.4 % (0-4.4); Hematocrit 31.3 % (37.0-47.0); Immature Granulocyte Absolute 0.11 K/mm3 (0.00-0.031); Immature Granulocyte Percent A 0.7 % (0-0.5); Lymphocytes Absolute Auto 1.33 K/mm3 (0.9-3.2); Lymphocytes Percent Auto 7.9 % (18.3-44.2); Mean Corpuscular HGB Conc 28.8 g/dl (32-36); Mean Corpuscular Hemoglobin 26.6 pg (26-34); Mean Corpuscular Volume 92.6 fl (80-100); Monocytes Percent Auto 5.9 % (2.6-8.5); Neutrophils Absolute Auto 14.4 K/mm3 (1.3-6.7); Platelet Count Result 200 k/mm3 (150-375); Red Blood Count 3.38 M/mm3 (4.2-5.4); Red Cell Distribution Width 22.6 % (11.5-14.5); White Blood Count 16.9 K/mm3 (4.5-10.0)
[2023-03-31 17:58] LABS: Anisocytosis 1+ (NORMAL); Hypochromasia 1+ (NORMAL); Ovalocytes 1+ (NORMAL); Platelet Estimate Adequate (Adequate); Schistocytes None Seen (NORMAL); Target Cells 1+ (NORMAL)
--- NOTE | 2023-03-31 20:03 | PM.PNPUL ---
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 We will know in a few days if this is Aspergillus or another mold, and we will see if she is any better treating with voriconazole. All the COVID treatments are finshed. 03/30: On voriconazole day 3. Awaiting ID of mold. 03/31 : CT scan of the chest yesterday improved; Mild pulmonary edema.; Mild atelectasis in the lungs with interval improvement.; Moderate emphysema. Small pleural effusions. Identification on the mold is not back yet. WBC is higher, 16.9. Clinically better. (2) COVID-19: Code(s): U07.1 - COVID-19 Status: Acute Assessment and Plan: Patient tested positive for COVID-19 on 03/16/2023 and started on remdesivir, dexamethasone on 03/16/23. Procalcitonin 0.1 on 03/16/2023. Remdesivir for 10 days Unless he should recover and tolerate room air with rest, ambulation and while sleeping. - Dexamethasone 6 mg IV for 10 days - Continuous pulse oximetry - Avoid any fluid overload. - Albuterol inhaler Q 4 for now, no wheezes. -negative RSV and influenza 03/19/2023: Plan: Patient is required BiPAP and high-flow nasal cannula and per and [facility] treatment guidelines will add baricitinib and I spoke to pharmacy and to be dosed per renal function per Pharmacy. Keep saturations are 90-94% with nasal cannula up to 15 L, if fails then Airvo high flow nasal cannula. 03/20/23: Patient tells me she continues to improve. She states she has 50% back to her baseline. She has a cough and continued shortness of breath with activity. She denies hemoptysis. Her white blood cell count is 5.0, she is afebrile. CRP decreased from 2.2 to a value of 0.6. Plan: Continue dexamethasone 6 mg IV and remdesivir 100 mg q.day, both day 5. Continue baricitinib, day 2. Avoid fluid overload and wean FiO2 to maintain saturation 90-94%. 03/21/23: Patient tells me she continues to slowly improve. States she is 75% back to her baseline except for her severe shortness of breath the and dyspnea on exertion. White blood cell count is 5.7, creatinine 0.9. Patient remains off BiPAP for 72 hours. When I enter the room the patient was on 45 L, 50% FiO2 with saturations 94%. Plan: Continue dexamethasone 6 mg IV and remdesivir 100 mg q.day, both day 6. Continue baricitinib, day 3. Avoid fluid overload and wean FiO2 to maintain saturation 90-94%. Later today will try to switch patient to high-flow nasal cannula at 15 L. 03/22/23: The patient remained on noninvasive ventilation with the AVAPS mode with the above settings and 70% overnight. The patient is awake and communicative. She states she is breathing well on the noninvasive ventilator. Her saturations on 70% are 96%. I decreased her to 60% and her saturations were 92%. She has no wheezing on exam. Her white blood cell count is 6.0, creatinine is 0.9, her weight is 67.4. Cumulative diuresis since admission is 830 mL. Plan: Continue dexamethasone 6 mg IV and remdesivir 100 mg q.day, both day 7. Continue baricitinib, day 4. 03/23/23: The patient remained on noninvasive ventilation with the AVAPS mode with the above settings and 55% overnight. The patient is awake and communicative. She states she is breathing well on the noninvasive ventilator. Her saturations on 55% are 96%. I decreased her to 50% and her saturations were 92%. She has no wheezing on exam. Her white blood cell count is 5.5, creatinine is 1.0, her weight is 72.9. Cumulative diuresis since admission is 1.4 L mL. Plan: Minimal improvement. Continue dex
[2023-03-31] MEDS: ALPRAZolam (*CRX) 0.5 MG TABLET 1 MG PO (20:34)
[2023-03-31] MEDS: PRAVASTATIN SODIUM 20 MG TABLET 40 MG PO (20:35)
[2023-04-01] VITALS (20 sets, daily range): BP systolic 99–125; BP diastolic 50–63; PULSE 58–98; RESP 16–27; TEMP 36–37.1; O2SAT 92–100
[2023-04-01] MEDS: IPRATROPIUM BR 0.02% INH SOLN 0.5 MG/2.5 ML VIAL INHALATION ×4 (08:02→20:42)
[2023-04-01] MEDS: ALBUTEROL SULFATE NEB 2.5 MG/3 ML INH INHALATION ×4 (08:02→20:42)
[2023-04-01] MEDS: DORNASE ALFA INH SOLN 1 MG/ML 2.5 ML AMP 2.5 MG INHALATION ×2 (08:14→20:46)
[2023-04-01] MEDS: SERTRALINE HCL 50 MG TABLET 200 MG PO (10:18)
[2023-04-01] MEDS: CLOPIDOGREL BISULFATE 75 MG TABLET PO (10:18)
[2023-04-01] MEDS: COLESTIPOL HCL 1 GM TABLET 2 GM PO (10:18)
[2023-04-01] MEDS: dilTIAZem HCL CD 180 MG CAP.24HR 360 MG PO (10:18)
[2023-04-01] MEDS: POLYSACCHARIDE IRON COMPLEX 150 MG CAPSULE PO (10:19)
[2023-04-01] MEDS: AMIODARONE HCL 100 MG TABLET PO (10:19)
[2023-04-01] MEDS: VORICONAZOLE 200 MG TABLET PO ×2 (10:19→21:55)
[2023-04-01] MEDS: SENNA/DOCUSATE SODIUM TABLET 1 TAB PO (10:19)
[2023-04-01] MEDS: guaiFENesin 12 HR 600 MG TABCR 1200 MG PO ×2 (10:19→21:00)
--- NOTE | 2023-04-01 15:59 | PC.NURSE ---
This patient, Maria Dolores Boles, was transferred to [facility] on 04/01/23 at 1559. Personal belongings sent with patient. Report given to Lori COOLEY. Appropriate documentation sent with patient.
[2023-04-01 20:17] LABS: Basophils Percent Auto 0.2 % (0.2-1.2); Eosinophils Absolute Auto 0.1 K/mm3 (0-0.3); Eosinophils Percent Auto 0.6 % (0-4.4); Hematocrit 29.8 % (37.0-47.0); Hemoglobin 8.4 g/dL (12.0-15.0); Immature Granulocyte Absolute 0.08 K/mm3 (0.00-0.031); Immature Granulocyte Percent A 0.6 % (0-0.5); Lymphocytes Absolute Auto 0.95 K/mm3 (0.9-3.2); Lymphocytes Percent Auto 7.2 % (18.3-44.2); Mean Corpuscular HGB Conc 28.2 g/dl (32-36); Mean Corpuscular Hemoglobin 26.8 pg (26-34); Mean Corpuscular Volume 94.9 fl (80-100); Mean Platelet Volume 9.7 fl (7.4-10.4); Monocytes Percent Auto 7.5 % (2.6-8.5); Neutrophils Absolute Auto 11.1 K/mm3 (1.3-6.7); Neutrophils Percent Auto 83.9 % (45.5-73.1); Platelet Count Result 156 k/mm3 (150-375); Red Blood Count 3.14 M/mm3 (4.2-5.4); Red Cell Distribution Width 23.8 % (11.5-14.5); White Blood Count 13.2 K/mm3 (4.5-10.0)
[2023-04-01 20:48] LABS: Hypochromasia 1+ (NORMAL); Ovalocytes 1+ (NORMAL); Platelet Estimate Adequate (Adequate); Schistocytes None Seen (NORMAL)
[2023-04-01 20:49] LABS: Anisocytosis 2+ (NORMAL)
[2023-04-01] MEDS: PRAVASTATIN SODIUM 20 MG TABLET 40 MG PO (21:01)
[2023-04-01] MEDS: ALPRAZolam (*CRX) 0.5 MG TABLET 1 MG PO (21:06)
[2023-04-02] VITALS (19 sets, daily range): BP systolic 90–124; BP diastolic 43–63; PULSE 81–132; RESP 18–28; TEMP 36.1–36.9; O2SAT 85–94
[2023-04-02] MEDS: ALBUTEROL SULFATE NEB 2.5 MG/3 ML INH INHALATION ×4 (08:54→21:35)
[2023-04-02] MEDS: IPRATROPIUM BR 0.02% INH SOLN 0.5 MG/2.5 ML VIAL INHALATION ×4 (08:54→21:35)
[2023-04-02] MEDS: SERTRALINE HCL 50 MG TABLET 200 MG PO (09:37)
[2023-04-02] MEDS: CLOPIDOGREL BISULFATE 75 MG TABLET PO (09:37)
[2023-04-02] MEDS: dilTIAZem HCL CD 180 MG CAP.24HR 360 MG PO (09:38)
[2023-04-02] MEDS: VORICONAZOLE 200 MG TABLET PO ×2 (09:38→20:48)
[2023-04-02] MEDS: POLYSACCHARIDE IRON COMPLEX 150 MG CAPSULE PO (09:39)
[2023-04-02] MEDS: AMIODARONE HCL 100 MG TABLET PO (09:39)
--- NOTE | 2023-04-02 12:39 | P.PNIM_ITS ---
Progress Note: A&P Assessment and Plan (1) COVID-19: Code(s): U07.1 - COVID-19 Status: Acute Assessment and Plan: Patient is gradually, continue current and monitor closely. (2) Acute exacerbation of chronic obstructive pulmonary disease (COPD): Code(s): J44.1 - Chronic obstructive pulmonary disease with (acute) exacerbation Status: Acute Assessment and Plan: Gradually improving continue current treatment. (3) Acute on chronic hypoxic respiratory failure: Code(s): J96.21 - Acute and chronic respiratory failure with hypoxia Status: Acute Assessment and Plan: Continue nebs and oxygen support. (4) Atrial fibrillation with RVR: Code(s): I48.91 - Unspecified atrial fibrillation Status: Acute Assessment and Plan: Heart rate is slightly better. Continue current treatment (5) Acute on chronic congestive heart failure with left ventricular diastolic dysfunction: Code(s): I50.33 - Acute on chronic diastolic (congestive) heart failure Status: Acute Assessment and Plan: Gradually improved, continue current treatment. Plan (1) COVID-19: ?Code(s): U07.1 - COVID-19 ?Status:?Acute ?Assessment and Plan: * Continue remdesivir and dexamethasone (03/16 initated) * was on BiPAP * needing high flow oxygen slow improvement (2) Acute exacerbation of chronic obstructive pulmonary disease (COPD): ?Code(s): J44.1 - Chronic obstructive pulmonary disease with (acute) exacerbation ?Status:?Acute ?Assessment and Plan: * Continue steroids, bronchodilators * Mucomyst and dornase for her atelectasis and/or mucus plugging. Continue guaifenesin 1200 mg p.o. b.i.d. .? She is using a vibratory Cornet valve.? (3) Acute on chronic hypoxic respiratory failure: ?Code(s): J96.21 - Acute and chronic respiratory failure with hypoxia ?Status:?Acute ?Assessment and Plan: * diuresing well * on furosemide 40 mg IV bid, dc on 03/28 * Monitor electrolytes * Strict input and output monitoring * Hold oral Lasix now because of soft blood pressure * (4) Pneumonia: ?Code(s): J18.9 - Pneumonia, unspecified organism ?Status:?Acute ?Assessment and Plan: * Patient has couple episodes of pneumonia in mid and late February as discussed with patient's daughter Cristel * Started patient on IV Levaquin and IV vancomycin pharmacy to dose based on renal functions * Nasal MRSA swab was negative hence vancomycin was discontinued * Changed to iV Levaquin q.48h per Dr. Donato * Completed antibiotics treatment * Dr Liz suspects that she may have secondary Aspergillus? infection with COVID; oral voriconazole started on 03/28.? * (5) Paroxysmal atrial fibrillation: ?Code(s): I48.0 - Paroxysmal atrial fibrillation ?Status:?Chronic ?Assessment and Plan: * hols diltiazem because blood pressure is soft * Continue eliquis, amiodarone * (6) Coronary arteriosclerosis in [place] artery: ?Code(s): I25.10 - Atherosclerotic heart disease of [place] coronary artery without angina pectoris ?Status:?Acute ?Assessment and Plan: * no chest pain mentioned(7) Anemia: ?Code(s): Acute on chronic diastolic heart failure severe pulmonary artery enlargement. ? 3. Left ventricular chamber dimension is normal. ? 4. Left ventricular systolic function is normal, estimated at 60-65%. ? 5. There is mildly increased left ventricular wall thickness. ? 6. The left ventricular diastolic functi
--- NOTE | 2023-04-02 12:39 | PM.IMPN ---
Progress Note: A&P Assessment and Plan (1) COVID-19: Code(s): U07.1 - COVID-19 Status: Acute Assessment and Plan: Patient is gradually, continue current and monitor closely. (2) Acute exacerbation of chronic obstructive pulmonary disease (COPD): Code(s): J44.1 - Chronic obstructive pulmonary disease with (acute) exacerbation Status: Acute Assessment and Plan: Gradually improving continue current treatment. (3) Acute on chronic hypoxic respiratory failure: Code(s): J96.21 - Acute and chronic respiratory failure with hypoxia Status: Acute Assessment and Plan: Continue nebs and oxygen support. (4) Atrial fibrillation with RVR: Code(s): I48.91 - Unspecified atrial fibrillation Status: Acute Assessment and Plan: Heart rate is slightly better. Continue current treatment (5) Acute on chronic congestive heart failure with left ventricular diastolic dysfunction: Code(s): I50.33 - Acute on chronic diastolic (congestive) heart failure Status: Acute Assessment and Plan: Gradually improved, continue current treatment. Plan (1) COVID-19: ?Code(s): U07.1 - COVID-19 ?Status:?Acute ?Assessment and Plan: Continue remdesivir and dexamethasone (03/16 initated) was on BiPAP needing high flow oxygen slow improvement (2) Acute exacerbation of chronic obstructive pulmonary disease (COPD): ?Code(s): J44.1 - Chronic obstructive pulmonary disease with (acute) exacerbation ?Status:?Acute ?Assessment and Plan: Continue steroids, bronchodilators Mucomyst and dornase for her atelectasis and/or mucus plugging. Continue guaifenesin 1200 mg p.o. b.i.d. .? She is using a vibratory Cornet valve.? (3) Acute on chronic hypoxic respiratory failure: ?Code(s): J96.21 - Acute and chronic respiratory failure with hypoxia ?Status:?Acute ?Assessment and Plan: diuresing well on furosemide 40 mg IV bid, dc on 03/28 Monitor electrolytes Strict input and output monitoring Hold oral Lasix now because of soft blood pressure (4) Pneumonia: ?Code(s): J18.9 - Pneumonia, unspecified organism ?Status:?Acute ?Assessment and Plan: Patient has couple episodes of pneumonia in mid and late February as discussed with patient's daughter Cristel Started patient on IV Levaquin and IV vancomycin pharmacy to dose based on renal functions Nasal MRSA swab was negative hence vancomycin was discontinued Changed to iV Levaquin q.48h per Dr. Donato Completed antibiotics treatment Dr Liz suspects that she may have secondary Aspergillus? infection with COVID; oral voriconazole started on 03/28.? (5) Paroxysmal atrial fibrillation: ?Code(s): I48.0 - Paroxysmal atrial fibrillation ?Status:?Chronic ?Assessment and Plan: hols diltiazem because blood pressure is soft Continue eliquis, amiodarone (6) Coronary arteriosclerosis in [place] artery: ?Code(s): I25.10 - Atherosclerotic heart disease of [place] coronary artery without angina pectoris ?Status:?Acute ?Assessment and Plan: no chest pain mentioned(7) Anemia: ?Code(s): Acute on chronic diastolic heart failure severe pulmonary artery enlargement. ? 3. Left ventricular chamber dimension is normal. ? 4. Left ventricular systolic function is normal, estimated at 60-65%. ? 5. There is mildly increased left ventricular wall thickness. ? 6. The left ventricular diastolic function is grade II diastolic dysfunction. ? 7. The basal inferior wall is akinetic. ? 8. Left atrial chamber dimension is moderately enlarged. ? 9. Right atrial chamber dimension is mildly enlarged. ? 10. Right ventricular chamber dimension is mildly enlarged. ? 11. There is moderate aortic valve stenosis with a peak velocity of 224 cm/s, mean gradient of 11 mmHg, and aortic valve area of 1.5 cm2. 03/26 cxr: 1: Interval progression of bilateral airspa
[2023-04-02] MEDS: ALPRAZolam (*CRX) 0.5 MG TABLET 1 MG PO (17:58)
[2023-04-02 18:10] LABS: Basophils Percent Auto 0.2 % (0.2-1.2); Hematocrit 27.5 % (37.0-47.0); Hemoglobin 7.9 g/dL (12.0-15.0); Immature Granulocyte Absolute 0.08 K/mm3 (0.00-0.031); Immature Granulocyte Percent A 0.6 % (0-0.5); Lymphocytes Absolute Auto 1.17 K/mm3 (0.9-3.2); Lymphocytes Percent Auto 8.9 % (18.3-44.2); Mean Corpuscular HGB Conc 28.7 g/dl (32-36); Mean Corpuscular Hemoglobin 26.8 pg (26-34); Mean Corpuscular Volume 93.2 fl (80-100); Monocytes Percent Auto 7.8 % (2.6-8.5); Neutrophils Absolute Auto 10.9 K/mm3 (1.3-6.7); Neutrophils Percent Auto 82.5 % (45.5-73.1); Platelet Count Result 143 k/mm3 (150-375); Red Blood Count 2.95 M/mm3 (4.2-5.4); Red Cell Distribution Width 23.8 % (11.5-14.5); White Blood Count 13.2 K/mm3 (4.5-10.0)
[2023-04-02 18:32] LABS: Schistocytes None Seen (NORMAL)
[2023-04-02 18:33] LABS: Hypochromasia 1+ (NORMAL)
[2023-04-02 18:34] LABS: Anisocytosis 3+ (NORMAL)
[2023-04-02] MEDS: guaiFENesin 12 HR 600 MG TABCR 1200 MG PO (20:48)
[2023-04-02] MEDS: PRAVASTATIN SODIUM 20 MG TABLET 40 MG PO (20:48)
[2023-04-02] MEDS: DORNASE ALFA INH SOLN 1 MG/ML 2.5 ML AMP 2.5 MG INHALATION (21:35)
[2023-04-03] VITALS (13 sets, daily range): BP systolic 107–122; BP diastolic 46–64; PULSE 40–97; RESP 16–22; TEMP 35.9–36.8; O2SAT 89–94
[2023-04-03] MEDS: ALPRAZolam (*CRX) 0.5 MG TABLET 1 MG PO ×2 (04:16→20:23)
[2023-04-03 05:59] LABS: Basophils Percent Auto 0.1 % (0.2-1.2); Eosinophils Percent Auto 0.2 % (0-4.4); Hematocrit 27.9 % (37.0-47.0); Immature Granulocyte Absolute 0.08 K/mm3 (0.00-0.031); Immature Granulocyte Percent A 0.7 % (0-0.5); Lymphocytes Percent Auto 6.5 % (18.3-44.2); Mean Corpuscular HGB Conc 28.7 g/dl (32-36); Mean Corpuscular Volume 94.3 fl (80-100); Mean Platelet Volume 9.9 fl (7.4-10.4); Monocytes Percent Auto 7.8 % (2.6-8.5); Neutrophils Absolute Auto 10.4 K/mm3 (1.3-6.7); Neutrophils Percent Auto 84.7 % (45.5-73.1); Platelet Count Result 144 k/mm3 (150-375); Red Blood Count 2.96 M/mm3 (4.2-5.4); Red Cell Distribution Width 23.8 % (11.5-14.5); White Blood Count 12.3 K/mm3 (4.5-10.0)
[2023-04-03] MEDS: COLESTIPOL HCL 1 GM TABLET 2 GM PO (08:23)
[2023-04-03] MEDS: dilTIAZem HCL CD 180 MG CAP.24HR 360 MG PO (08:27)
[2023-04-03] MEDS: guaiFENesin 12 HR 600 MG TABCR 1200 MG PO ×2 (08:27→20:20)
[2023-04-03] MEDS: AMIODARONE HCL 100 MG TABLET PO (08:27)
[2023-04-03] MEDS: SERTRALINE HCL 50 MG TABLET 200 MG PO (08:28)
[2023-04-03] MEDS: PANTOPRAZOLE 40 MG TABLET PO (08:28)
[2023-04-03] MEDS: POLYSACCHARIDE IRON COMPLEX 150 MG CAPSULE PO (08:28)
[2023-04-03] MEDS: VORICONAZOLE 200 MG TABLET PO ×2 (08:28→20:20)
[2023-04-03] MEDS: CLOPIDOGREL BISULFATE 75 MG TABLET PO (08:28)
[2023-04-03] MEDS: ALBUTEROL SULFATE NEB 2.5 MG/3 ML INH INHALATION ×3 (08:45→21:45)
[2023-04-03] MEDS: IPRATROPIUM BR 0.02% INH SOLN 0.5 MG/2.5 ML VIAL INHALATION ×3 (08:45→21:45)
[2023-04-03] MEDS: DORNASE ALFA INH SOLN 1 MG/ML 2.5 ML AMP 2.5 MG INHALATION ×2 (08:58→21:46)
[2023-04-03 09:04] LABS: Schistocytes Rare (NORMAL)
[2023-04-03 09:05] LABS: Anisocytosis 1+ (NORMAL); Hypochromasia 1+ (NORMAL); Target Cells 1+ (NORMAL)
[2023-04-03 12:02] LABS: Glucose Point of Care 146 mg/dl (65-105)
--- NOTE | 2023-04-03 19:11 | P.PNIM_ITS ---
Progress Note: A&P Assessment and Plan (1) COVID-19: Code(s): U07.1 - COVID-19 Status: Acute Assessment and Plan: Patient is gradually, continue current and monitor closely. (2) Acute exacerbation of chronic obstructive pulmonary disease (COPD): Code(s): J44.1 - Chronic obstructive pulmonary disease with (acute) exacerbation Status: Acute Assessment and Plan: Gradually improving continue current treatment. (3) Acute on chronic hypoxic respiratory failure: Code(s): J96.21 - Acute and chronic respiratory failure with hypoxia Status: Acute Assessment and Plan: Continue nebs and oxygen support. (4) Atrial fibrillation with RVR: Code(s): I48.91 - Unspecified atrial fibrillation Status: Acute Assessment and Plan: Heart rate is slightly better. Continue current treatment (5) Acute on chronic congestive heart failure with left ventricular diastolic dysfunction: Code(s): I50.33 - Acute on chronic diastolic (congestive) heart failure Status: Acute Assessment and Plan: Gradually improved, continue current treatment. Plan (1) COVID-19: ?Code(s): U07.1 - COVID-19 ?Status:?Acute ?Assessment and Plan: * Continue remdesivir and dexamethasone (03/16 initated) * was on BiPAP * needing high flow oxygen slow improvement * Patient completed COVID-19 quarantine (2) Acute exacerbation of chronic obstructive pulmonary disease (COPD): ?Code(s): J44.1 - Chronic obstructive pulmonary disease with (acute) exacerbation ?Status:?Acute ?Assessment and Plan: * Continue steroids, bronchodilators * Mucomyst and dornase for her atelectasis and/or mucus plugging. Continue guaifenesin 1200 mg p.o. b.i.d. .? She is using a vibratory Cornet valve.? (3) Acute on chronic hypoxic respiratory failure: ?Code(s): J96.21 - Acute and chronic respiratory failure with hypoxia ?Status:?Acute ?Assessment and Plan: * diuresing well * on furosemide 40 mg IV bid, dc on 03/28 * Monitor electrolytes * Strict input and output monitoring * Hold oral Lasix now because of soft blood pressure * (4) Pneumonia: ?Code(s): J18.9 - Pneumonia, unspecified organism ?Status:?Acute ?Assessment and Plan: * Patient has couple episodes of pneumonia in mid and late February as discussed with patient's daughter Cristel * Started patient on IV Levaquin and IV vancomycin pharmacy to dose based on renal functions * Nasal MRSA swab was negative hence vancomycin was discontinued * Changed to iV Levaquin q.48h per Dr. Donato * Completed antibiotics treatment * Dr Liz suspects that she may have secondary Aspergillus? infection with COVID; oral voriconazole started on 03/28.? * Patient is currently of antimicrobial antibiotics and WBC count is trending down * Monitor patient very closely (5) Paroxysmal atrial fibrillation: ?Code(s): I48.0 - Paroxysmal atrial fibrillation ?Status:?Chronic ?Assessment and Plan: * hols diltiazem because blood pressure is soft * Continue eliquis, amiodarone (6) Coronary arteriosclerosis in [place] artery: ?Code(s): I25.10 - Atherosclerotic heart disease of [place] coronary artery without angina pectoris ?Status:?Acute ?Assessment and Plan: * no chest pain mentioned(7) Anemia: ?Code(s): Acute on chronic diastolic heart failure severe pulmonary artery enlargement. ? 3. Left ventricular chamber dimension is normal. ? 4. Left ventric
--- NOTE | 2023-04-03 19:11 | PM.IMPN ---
Progress Note: A&P Assessment and Plan (1) COVID-19: Code(s): U07.1 - COVID-19 Status: Acute Assessment and Plan: Patient is gradually, continue current and monitor closely. (2) Acute exacerbation of chronic obstructive pulmonary disease (COPD): Code(s): J44.1 - Chronic obstructive pulmonary disease with (acute) exacerbation Status: Acute Assessment and Plan: Gradually improving continue current treatment. (3) Acute on chronic hypoxic respiratory failure: Code(s): J96.21 - Acute and chronic respiratory failure with hypoxia Status: Acute Assessment and Plan: Continue nebs and oxygen support. (4) Atrial fibrillation with RVR: Code(s): I48.91 - Unspecified atrial fibrillation Status: Acute Assessment and Plan: Heart rate is slightly better. Continue current treatment (5) Acute on chronic congestive heart failure with left ventricular diastolic dysfunction: Code(s): I50.33 - Acute on chronic diastolic (congestive) heart failure Status: Acute Assessment and Plan: Gradually improved, continue current treatment. Plan (1) COVID-19: ?Code(s): U07.1 - COVID-19 ?Status:?Acute ?Assessment and Plan: Continue remdesivir and dexamethasone (03/16 initated) was on BiPAP needing high flow oxygen slow improvement Patient completed COVID-19 quarantine (2) Acute exacerbation of chronic obstructive pulmonary disease (COPD): ?Code(s): J44.1 - Chronic obstructive pulmonary disease with (acute) exacerbation ?Status:?Acute ?Assessment and Plan: Continue steroids, bronchodilators Mucomyst and dornase for her atelectasis and/or mucus plugging. Continue guaifenesin 1200 mg p.o. b.i.d. .? She is using a vibratory Cornet valve.? (3) Acute on chronic hypoxic respiratory failure: ?Code(s): J96.21 - Acute and chronic respiratory failure with hypoxia ?Status:?Acute ?Assessment and Plan: diuresing well on furosemide 40 mg IV bid, dc on 03/28 Monitor electrolytes Strict input and output monitoring Hold oral Lasix now because of soft blood pressure (4) Pneumonia: ?Code(s): J18.9 - Pneumonia, unspecified organism ?Status:?Acute ?Assessment and Plan: Patient has couple episodes of pneumonia in mid and late February as discussed with patient's daughter Cristel Started patient on IV Levaquin and IV vancomycin pharmacy to dose based on renal functions Nasal MRSA swab was negative hence vancomycin was discontinued Changed to iV Levaquin q.48h per Dr. Donato Completed antibiotics treatment Dr Liz suspects that she may have secondary Aspergillus? infection with COVID; oral voriconazole started on 03/28.? Patient is currently of antimicrobial antibiotics and WBC count is trending down Monitor patient very closely (5) Paroxysmal atrial fibrillation: ?Code(s): I48.0 - Paroxysmal atrial fibrillation ?Status:?Chronic ?Assessment and Plan: hols diltiazem because blood pressure is soft Continue eliquis, amiodarone (6) Coronary arteriosclerosis in [place] artery: ?Code(s): I25.10 - Atherosclerotic heart disease of [place] coronary artery without angina pectoris ?Status:?Acute ?Assessment and Plan: no chest pain mentioned(7) Anemia: ?Code(s): Acute on chronic diastolic heart failure severe pulmonary artery enlargement. ? 3. Left ventricular chamber dimension is normal. ? 4. Left ventricular systolic function is normal, estimated at 60-65%. ? 5. There is mildly increased left ventricular wall thickness. ? 6. The left ventricular diastolic function is grade II diastolic dysfunction. ? 7. The basal inferior wall is akinetic. ? 8. Left atrial chamber dimension is moderately enlarged. ? 9. Right atrial chamber dimension is mildly enlarged. ? 10. Right ventricular chamber dimension is mildly enlarged. ? 11. There is moderate aortic valve stenosis
[2023-04-03] MEDS: PRAVASTATIN SODIUM 20 MG TABLET 40 MG PO (20:20)
--- NOTE | 2023-04-03 22:03 | PCRCNOTE ---
Patient was on 7L high flow nasal cannula without humidity. RT added humidity. Patient complained that her nose was dry...understandable. 4L and over should be on humidity.
[2023-04-04] VITALS (19 sets, daily range): BP systolic 100–143; BP diastolic 47–70; PULSE 77–117; RESP 13–22; TEMP 36.4–36.8; O2SAT 90–97
[2023-04-04 06:02] LABS: Alanine Aminotransferase 15 U/L (6-35); Albumin Level 3.1 g/dL (3.5-5.1); Alkaline Phosphatase 101 U/L (38-126); Anion Gap 7 mmol/L (8-16); Aspartate Amino Transferase 21 U/L (14-36); Bilirubin,Total 0.5 mg/dL (0.2-1.3); Blood Urea Nitrogen 14 mg/dL (7-17); Calcium 8.6 mg/dL (8.4-10.2); Carbon Dioxide 26 mmol/L (22-30); Chloride 107 mmol/L (98-107); Estimated CRCL calculation 43 ml/min; Estimated Glomerular Filt Rate > 60; Glucose 130 mg/dL (65-110); Potassium 3.8 mmol/L (3.4-5.0); Sodium 140 mmol/L (137-145)
[2023-04-04] MEDS: IPRATROPIUM BR 0.02% INH SOLN 0.5 MG/2.5 ML VIAL INHALATION ×4 (08:02→20:15)
[2023-04-04] MEDS: ALBUTEROL SULFATE NEB 2.5 MG/3 ML INH INHALATION ×4 (08:02→20:15)
[2023-04-04] MEDS: DORNASE ALFA INH SOLN 1 MG/ML 2.5 ML AMP 2.5 MG INHALATION ×2 (08:13→08:14)
[2023-04-04] MEDS: POLYSACCHARIDE IRON COMPLEX 150 MG CAPSULE PO (08:40)
[2023-04-04] MEDS: CLOPIDOGREL BISULFATE 75 MG TABLET PO (08:40)
[2023-04-04] MEDS: PANTOPRAZOLE 40 MG TABLET PO (08:40)
[2023-04-04] MEDS: COLESTIPOL HCL 1 GM TABLET 2 GM PO (08:40)
[2023-04-04] MEDS: VORICONAZOLE 200 MG TABLET PO ×2 (08:40→21:23)
[2023-04-04] MEDS: guaiFENesin 12 HR 600 MG TABCR 1200 MG PO ×2 (08:40→21:23)
[2023-04-04] MEDS: SERTRALINE HCL 50 MG TABLET 200 MG PO (08:40)
[2023-04-04] MEDS: dilTIAZem HCL CD 180 MG CAP.24HR 360 MG PO (08:40)
[2023-04-04] MEDS: AMIODARONE HCL 100 MG TABLET PO (08:41)
[2023-04-04] MEDS: ACETAMINOPHEN 325 MG TABLET 650 MG PO (10:42)
[2023-04-04] MEDS: ALPRAZolam (*CRX) 0.5 MG TABLET 1 MG PO (15:12)
--- NOTE | 2023-04-04 15:47 | P.PNIM_ITS ---
Progress Note: A&P Assessment and Plan (1) COVID-19: Code(s): U07.1 - COVID-19 Status: Acute Assessment and Plan: Patient is gradually, continue current and monitor closely. (2) Acute exacerbation of chronic obstructive pulmonary disease (COPD): Code(s): J44.1 - Chronic obstructive pulmonary disease with (acute) exacerbation Status: Acute Assessment and Plan: Gradually improving continue current treatment. (3) Acute on chronic hypoxic respiratory failure: Code(s): J96.21 - Acute and chronic respiratory failure with hypoxia Status: Acute Assessment and Plan: Continue nebs and oxygen support. (4) Atrial fibrillation with RVR: Code(s): I48.91 - Unspecified atrial fibrillation Status: Acute Assessment and Plan: Heart rate is slightly better. Continue current treatment (5) Acute on chronic congestive heart failure with left ventricular diastolic dysfunction: Code(s): I50.33 - Acute on chronic diastolic (congestive) heart failure Status: Acute Assessment and Plan: Gradually improved, continue current treatment. Plan (1) COVID-19: ?Code(s): U07.1 - COVID-19 ?Status:?Acute ?Assessment and Plan: * Continue remdesivir and dexamethasone (03/16 initated) * was on BiPAP * needing high flow oxygen slow improvement * Patient completed COVID-19 quarantine (2) Acute exacerbation of chronic obstructive pulmonary disease (COPD): ?Code(s): J44.1 - Chronic obstructive pulmonary disease with (acute) exacerbation ?Status:?Acute ?Assessment and Plan: * Continue steroids, bronchodilators * Mucomyst and dornase for her atelectasis and/or mucus plugging. Continue guaifenesin 1200 mg p.o. b.i.d. .? She is using a vibratory Cornet valve.? (3) Acute on chronic hypoxic respiratory failure: ?Code(s): J96.21 - Acute and chronic respiratory failure with hypoxia ?Status:?Acute ?Assessment and Plan: * diuresing well * on furosemide 40 mg IV bid, dc on 03/28 * Monitor electrolytes * Strict input and output monitoring * Hold oral Lasix now because of soft blood pressure * (4) Pneumonia: ?Code(s): J18.9 - Pneumonia, unspecified organism ?Status:?Acute ?Assessment and Plan: * Patient has couple episodes of pneumonia in mid and late February as discussed with patient's daughter Cristel * Started patient on IV Levaquin and IV vancomycin pharmacy to dose based on renal functions * Nasal MRSA swab was negative hence vancomycin was discontinued * Changed to iV Levaquin q.48h per Dr. Donato * Completed antibiotics treatment * Dr Liz suspects that she may have secondary Aspergillus? infection with COVID; oral voriconazole started on 03/28 ... Day # 7 today * Patient is currently off antimicrobial antibiotics and WBC count is trending down; currently at 12.3 * Monitor patient very closely * Discussed with Pulmonary in detail (5) Paroxysmal atrial fibrillation: ?Code(s): I48.0 - Paroxysmal atrial fibrillation ?Status:?Chronic ?Assessment and Plan: * hols diltiazem because blood pressure is soft * Continue eliquis, amiodarone (6) Coronary arteriosclerosis in [place] artery: ?Code(s): I25.10 - Atherosclerotic heart disease of [place] coronary artery without angina pectoris ?Status:?Acute ?Assessment and Plan: * no chest pain mentioned(7) Anemia: ?Code(s): Acute on chronic diastolic heart failure severe pulmonary artery enlargement.
--- NOTE | 2023-04-04 15:47 | PM.IMPN ---
Progress Note: A&P Assessment and Plan (1) COVID-19: Code(s): U07.1 - COVID-19 Status: Acute Assessment and Plan: Patient is gradually, continue current and monitor closely. (2) Acute exacerbation of chronic obstructive pulmonary disease (COPD): Code(s): J44.1 - Chronic obstructive pulmonary disease with (acute) exacerbation Status: Acute Assessment and Plan: Gradually improving continue current treatment. (3) Acute on chronic hypoxic respiratory failure: Code(s): J96.21 - Acute and chronic respiratory failure with hypoxia Status: Acute Assessment and Plan: Continue nebs and oxygen support. (4) Atrial fibrillation with RVR: Code(s): I48.91 - Unspecified atrial fibrillation Status: Acute Assessment and Plan: Heart rate is slightly better. Continue current treatment (5) Acute on chronic congestive heart failure with left ventricular diastolic dysfunction: Code(s): I50.33 - Acute on chronic diastolic (congestive) heart failure Status: Acute Assessment and Plan: Gradually improved, continue current treatment. Plan (1) COVID-19: ?Code(s): U07.1 - COVID-19 ?Status:?Acute ?Assessment and Plan: Continue remdesivir and dexamethasone (03/16 initated) was on BiPAP needing high flow oxygen slow improvement Patient completed COVID-19 quarantine (2) Acute exacerbation of chronic obstructive pulmonary disease (COPD): ?Code(s): J44.1 - Chronic obstructive pulmonary disease with (acute) exacerbation ?Status:?Acute ?Assessment and Plan: Continue steroids, bronchodilators Mucomyst and dornase for her atelectasis and/or mucus plugging. Continue guaifenesin 1200 mg p.o. b.i.d. .? She is using a vibratory Cornet valve.? (3) Acute on chronic hypoxic respiratory failure: ?Code(s): J96.21 - Acute and chronic respiratory failure with hypoxia ?Status:?Acute ?Assessment and Plan: diuresing well on furosemide 40 mg IV bid, dc on 03/28 Monitor electrolytes Strict input and output monitoring Hold oral Lasix now because of soft blood pressure (4) Pneumonia: ?Code(s): J18.9 - Pneumonia, unspecified organism ?Status:?Acute ?Assessment and Plan: Patient has couple episodes of pneumonia in mid and late February as discussed with patient's daughter Cristel Started patient on IV Levaquin and IV vancomycin pharmacy to dose based on renal functions Nasal MRSA swab was negative hence vancomycin was discontinued Changed to iV Levaquin q.48h per Dr. 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 Day # 7 today Patient is currently off antimicrobial antibiotics and WBC count is trending down; currently at 12.3 Monitor patient very closely Discussed with Pulmonary in detail (5) Paroxysmal atrial fibrillation: ?Code(s): I48.0 - Paroxysmal atrial fibrillation ?Status:?Chronic ?Assessment and Plan: hols diltiazem because blood pressure is soft Continue eliquis, amiodarone (6) Coronary arteriosclerosis in [place] artery: ?Code(s): I25.10 - Atherosclerotic heart disease of [place] coronary artery without angina pectoris ?Status:?Acute ?Assessment and Plan: no chest pain mentioned(7) Anemia: ?Code(s): Acute on chronic diastolic heart failure severe pulmonary artery enlargement. ? 3. Left ventricular chamber dimension is normal. ? 4. Left ventricular systolic function is normal, estimated at 60-65%. ? 5. There is mildly increased left ventricular wall thickness. ? 6. The left ventricular diastolic function is grade II diastolic dysfunction. ? 7. The basal inferior wall is akinetic. ? 8. Left atrial chamber dimension is moderately enlarged. ? 9. Right atrial chamber dimension is mildly enlarged. ? 10. Right ventricular chamber dim
[2023-04-04] MEDS: PRAVASTATIN SODIUM 20 MG TABLET 40 MG PO (21:23)
[2023-04-05] VITALS (29 sets, daily range): BP systolic 111–138; BP diastolic 42–78; PULSE 78–117; RESP 18–52; TEMP 36.1–37; O2SAT 82–100
--- NOTE | 2023-04-05 00:29 | PC.NURSE ---
Pt woke up confused and disoriented to place, pt called daughter Christy from room. Pt reoriented and appears relaxed at this time, education given to hospital environment and use of the call light, pt verbalized understanding that she can call nurses station at anytime if feelings of confusion return. Christy updated on situation and also notified of visitor hours and hospital policy.
[2023-04-05] MEDS: ALPRAZolam (*CRX) 0.5 MG TABLET 1 MG PO ×2 (05:09→21:11)
[2023-04-05 05:13] LABS: Lactate Dehydrogenase 172 U/L (120-246)
[2023-04-05 05:19] LABS: INR 1.2; Prothrombin Time 16.1 Seconds (11.1-14.7)
[2023-04-05 05:20] LABS: Partial Thromboplastin Time 40.2 SECONDS (22.3-36.8)
[2023-04-05 05:23] LABS: NT Pro B Type Natriuretic Pept 2490 pg/mL (19.9-100)
[2023-04-05] MEDS: SODIUM CHLOR 3% 15 ML NEB (RESPIRATORY THERAPY) (05:43)
--- NOTE | 2023-04-05 06:29 | PCRCNOTE ---
patient was unable to submit a sputum sample
[2023-04-05] MEDS: ALBUTEROL SULFATE NEB 2.5 MG/3 ML INH INHALATION ×4 (07:42→20:32)
[2023-04-05] MEDS: IPRATROPIUM BR 0.02% INH SOLN 0.5 MG/2.5 ML VIAL INHALATION ×4 (07:42→20:32)
[2023-04-05] MEDS: FUROSEMIDE INJ 40 MG/4 ML VIAL IV PUSH ×2 (07:49→16:57)
[2023-04-05 08:00] LABS: Glucose Point of Care 126 mg/dl (65-105)
--- NOTE | 2023-04-05 08:00 | PC.NURSE ---
To [facility] 212/ via bed.
--- NOTE | 2023-04-05 08:15 | PM.PNPUL ---
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 We will know in a few days if this is Aspergillus or another mold, and we will see if she is any better treating with voriconazole. All the COVID treatments are finshed. 03/30: On voriconazole day 3. Awaiting ID of mold. 03/31 : CT scan of the chest yesterday improved; Mild pulmonary edema.; Mild atelectasis in the lungs with interval improvement.; Moderate emphysema. Small pleural effusions. Identification on the mold is not back yet. WBC is higher, 16.9. Clinically better. 04/04: Sputum with Aspergillus fumigatus species complex. CT scan on 03/30 without focal consolidations or cavitations. This may be colonization. Will continue voriconazole, day 7 today. 04/05: Continue voriconazole, day [address] Hameed, discussed with Christy Lobo, will follow with you. (2) COVID-19: Code(s): U07.1 - COVID-19 Status: Acute Assessment and Plan: Patient tested positive for COVID-19 on 03/16/2023 and started on remdesivir, dexamethasone on 03/16/23. Procalcitonin 0.1 on 03/16/2023. Remdesivir for 10 days Unless he should recover and tolerate room air with rest, ambulation and while sleeping. - Dexamethasone 6 mg IV for 10 days - Continuous pulse oximetry - Avoid any fluid overload. - Albuterol inhaler Q 4 for now, no wheezes. -negative RSV and influenza 03/19/2023: Plan: Patient is required BiPAP and high-flow nasal cannula and per and IH treatment guidelines will add baricitinib and I spoke to pharmacy and to be dosed per renal function per Pharmacy. Keep saturations are 90-94% with nasal cannula up to 15 L, if fails then Airvo high flow nasal cannula. 03/20/23: Patient tells me she continues to improve. She states she has 50% back to her baseline. She has a cough and continued shortness of breath with activity. She denies hemoptysis. Her white blood cell count is 5.0, she is afebrile. CRP decreased from 2.2 to a value of 0.6. Plan: Continue dexamethasone 6 mg IV and remdesivir 100 mg q.day, both day 5. Continue baricitinib, day 2. Avoid fluid overload and wean FiO2 to maintain saturation 90-94%. 03/21/23: Patient tells me she continues to slowly improve. States she is 75% back to her baseline except for her severe shortness of breath the and dyspnea on exertion. White blood cell count is 5.7, creatinine 0.9. Patient remains off BiPAP for 72 hours. When I enter the room the patient was on 45 L, 50% FiO2 with saturations 94%. Plan: Continue dexamethasone 6 mg IV and remdesivir 100 mg q.day, both day 6. Continue baricitinib, day 3. Avoid fluid overload and wean FiO2 to maintain saturation 90-94%. Later today will try to switch patient to high-flow nasal cannula at 15 L. 03/22/23: The patient remained on noninvasive ventilation with the AVAPS mode with the above settings and 70% overnight. The patient is awake and communicative. She states she is breathing well on the noninvasive ventilator. Her saturations on 70% are 96%. I decreased her to 60% and her saturations were 92%. She has no wheezing on exam. Her white blood cell count is 6.0, creatinine is 0.9, her weight is 67.4. Cumulative diuresis since admission is 830 mL. Plan: Continue dexamethasone 6 mg IV and remdesivir 100 mg q.day, both day 7. Continue baricitinib, day 4. 03/23/23: The patient remained on noninvasive ventilation with the AVAPS mode with the above settings and 55% overnight. The patient is awake and communicative. She states she is breathing wel
[2023-04-05 08:59] LABS: Basophils Percent Auto 0.2 % (0.2-1.2); Eosinophils Absolute Auto 0.1 K/mm3 (0-0.3); Eosinophils Percent Auto 0.4 % (0-4.4); Hematocrit 29.1 % (37.0-47.0); Hemoglobin 8.1 g/dL (12.0-15.0); Immature Granulocyte Absolute 0.06 K/mm3 (0.00-0.031); Immature Granulocyte Percent A 0.5 % (0-0.5); Lymphocytes Absolute Auto 0.91 K/mm3 (0.9-3.2); Lymphocytes Percent Auto 7.2 % (18.3-44.2); Mean Corpuscular HGB Conc 27.8 g/dl (32-36); Mean Corpuscular Hemoglobin 26.8 pg (26-34); Mean Corpuscular Volume 96.4 fl (80-100); Mean Platelet Volume 10.7 fl (7.4-10.4); Monocytes Absolute Auto 0.7 K/mm3 (0.1-0.6); Monocytes Percent Auto 5.6 % (2.6-8.5); Neutrophils Absolute Auto 10.8 K/mm3 (1.3-6.7); Neutrophils Percent Auto 86.1 % (45.5-73.1); Platelet Count Result 153 k/mm3 (150-375); Red Blood Count 3.02 M/mm3 (4.2-5.4); Red Cell Distribution Width 23.9 % (11.5-14.5); White Blood Count 12.6 K/mm3 (4.5-10.0)
[2023-04-05 09:07] LABS: Anion Gap 6 mmol/L (8-16); Blood Urea Nitrogen 13 mg/dL (7-17); Calcium 8.5 mg/dL (8.4-10.2); Carbon Dioxide 26 mmol/L (22-30); Chloride 108 mmol/L (98-107); Estimated CRCL calculation 63 ml/min; Estimated Glomerular Filt Rate > 60; Glucose 125 mg/dL (65-110); Potassium 4.2 mmol/L (3.4-5.0); Sodium 140 mmol/L (137-145)
--- NOTE | 2023-04-05 09:19 | PC.NURSE ---
This patient, Maria Dolores Boles, was received from [[id number] ] on 04/05/23 at 0810. Patient/family oriented to unit policies and routines
--- NOTE | 2023-04-05 09:26 | PCNFU ---
Nutrition Follow-Up Complete: Suboptimal po intake related to appetite as evidenced by charted intake PO intake greater than 50% of meals - Progressing toward goal. Continue with same goal Goal: Pt current nutrition is Heart healthy diet with Ensure Compact BID for additional 220 kcal and 9 g protein each. Nutrition recommendation: Continue with current nutrition care plan. Continue with orders. Last recorded weight is 71.6 kg. Bowel Motility: +2 BM 04/02/26. Pt on bowel regimen Labs Reviewed: Cre 0.6, Glu 125 Meds Noted: Eliquis, Lasix, Zofran, protonix, miralax, senna Skin: friction, maceration. No pressure injuries Additional Notes: Appetite is fair to good. Continue with current orders. Monitor intake, wt, labs. Follow up in 5 days.
[2023-04-05 09:40] LABS: Anisocytosis 1+ (NORMAL); Hypochromasia 2+ (NORMAL); Platelet Estimate Adequate (Adequate)
[2023-04-05 09:41] LABS: Schistocytes None Seen (NORMAL)
--- NOTE | 2023-04-05 09:44 | PCOTNOTE ---
Patient with rapid response in AM, moved to IMU and is on 15L of O2 at this time. Patient is to be held from therapy per RN and will check back later for therapy clarification.
[2023-04-05] MEDS: SENNA/DOCUSATE SODIUM TABLET 1 TAB PO ×2 (09:47→16:57)
[2023-04-05] MEDS: ACETAMINOPHEN 325 MG TABLET 650 MG PO (09:48)
[2023-04-05] MEDS: PANTOPRAZOLE 40 MG TABLET PO (09:48)
[2023-04-05] MEDS: COLESTIPOL HCL 1 GM TABLET 2 GM PO (09:48)
[2023-04-05] MEDS: guaiFENesin 12 HR 600 MG TABCR 1200 MG PO ×2 (09:48→21:12)
[2023-04-05] MEDS: SERTRALINE HCL 50 MG TABLET 200 MG PO (09:48)
[2023-04-05] MEDS: VORICONAZOLE 200 MG TABLET PO ×2 (09:48→21:11)
[2023-04-05] MEDS: AMIODARONE HCL 100 MG TABLET PO (09:49)
[2023-04-05] MEDS: dilTIAZem HCL CD 180 MG CAP.24HR 360 MG PO (09:49)
[2023-04-05] MEDS: POLYSACCHARIDE IRON COMPLEX 150 MG CAPSULE PO (09:49)
[2023-04-05] MEDS: polyethylene glycoL 3350 17 GM POWD.PACK PO (09:49)
[2023-04-05] MEDS: APIXABAN 5 MG TABLET PO ×2 (12:45→21:12)
--- NOTE | 2023-04-05 16:33 | P.PNIM_ITS ---
Progress Note: A&P Assessment and Plan (1) COVID-19: Code(s): U07.1 - COVID-19 Status: Acute Assessment and Plan: Patient is gradually, continue current and monitor closely. (2) Acute exacerbation of chronic obstructive pulmonary disease (COPD): Code(s): J44.1 - Chronic obstructive pulmonary disease with (acute) exacerbation Status: Acute Assessment and Plan: Gradually improving continue current treatment. (3) Acute on chronic hypoxic respiratory failure: Code(s): J96.21 - Acute and chronic respiratory failure with hypoxia Status: Acute Assessment and Plan: Continue nebs and oxygen support. (4) Atrial fibrillation with RVR: Code(s): I48.91 - Unspecified atrial fibrillation Status: Acute Assessment and Plan: Heart rate is slightly better. Continue current treatment (5) Acute on chronic congestive heart failure with left ventricular diastolic dysfunction: Code(s): I50.33 - Acute on chronic diastolic (congestive) heart failure Status: Acute Assessment and Plan: Gradually improved, continue current treatment. Plan RAPID RESPONSE CODE: (1) COVID-19: ?Code(s): U07.1 - COVID-19 ?Status:?Acute ?Assessment and Plan: * Continue remdesivir and dexamethasone (03/16 initated) * was on BiPAP * needing high flow oxygen slow improvement * Patient completed COVID-19 quarantine (2) Acute exacerbation of chronic obstructive pulmonary disease (COPD): ?Code(s): J44.1 - Chronic obstructive pulmonary disease with (acute) exacerbation ?Status:?Acute ?Assessment and Plan: * Continue steroids, bronchodilators * Mucomyst and dornase for her atelectasis and/or mucus plugging. Continue guaifenesin 1200 mg p.o. b.i.d. .? She is using a vibratory Cornet valve.? (3) Acute on chronic hypoxic respiratory failure: ?Code(s): J96.21 - Acute and chronic respiratory failure with hypoxia ?Status:?Acute ?Assessment and Plan: * diuresing well * on furosemide 40 mg IV bid, dc on 03/28 * Monitor electrolytes * Strict input and output monitoring * Hold oral Lasix now because of soft blood pressure * Patient restarted on Lasix 40 mg IV daily during rapid response today * Strict input and output monitoring * Patient initiated on BiPAP with AVAPS setting during prep for bone scored on transfer to IMU ... Now being transitioned to high-flow nasal cannula (4) Pneumonia: ?Code(s): J18.9 - Pneumonia, unspecified organism ?Status:?Acute ?Assessment and Plan: * Patient has couple episodes of pneumonia in mid and late February as discussed with patient's daughter Cristel * Started patient on IV Levaquin and IV vancomycin pharmacy to dose based on renal functions * Nasal MRSA swab was negative hence vancomycin was discontinued * Changed to iV Levaquin q.48h per Dr. Donato * Completed antibiotics treatment * Dr Liz suspects that she may have secondary Aspergillus? infection with COVID; oral voriconazole started on 03/28 ... Day # 8 today * Patient is currently off antimicrobial antibiotics and WBC count is trending down; currently at 12.3 * Monitor patient very closely * Discussed with Pulmonary in detail (5) Paroxysmal atrial fibrillation: ?Code(s): I48.0 - Paroxysmal atrial fibrillation ?Status:?Chronic ?Assessment and Plan: * hols diltiazem because blood pressure is soft * Continue eliquis, amiodarone (6) Coronary arteriosclerosis in [place] artery: ?Code(s): I25.10
--- NOTE | 2023-04-05 16:33 | PM.IMPN ---
Progress Note: A&P Assessment and Plan (1) COVID-19: Code(s): U07.1 - COVID-19 Status: Acute Assessment and Plan: Patient is gradually, continue current and monitor closely. (2) Acute exacerbation of chronic obstructive pulmonary disease (COPD): Code(s): J44.1 - Chronic obstructive pulmonary disease with (acute) exacerbation Status: Acute Assessment and Plan: Gradually improving continue current treatment. (3) Acute on chronic hypoxic respiratory failure: Code(s): J96.21 - Acute and chronic respiratory failure with hypoxia Status: Acute Assessment and Plan: Continue nebs and oxygen support. (4) Atrial fibrillation with RVR: Code(s): I48.91 - Unspecified atrial fibrillation Status: Acute Assessment and Plan: Heart rate is slightly better. Continue current treatment (5) Acute on chronic congestive heart failure with left ventricular diastolic dysfunction: Code(s): I50.33 - Acute on chronic diastolic (congestive) heart failure Status: Acute Assessment and Plan: Gradually improved, continue current treatment. Plan RAPID RESPONSE CODE: (1) COVID-19: ?Code(s): U07.1 - COVID-19 ?Status:?Acute ?Assessment and Plan: Continue remdesivir and dexamethasone (03/16 initated) was on BiPAP needing high flow oxygen slow improvement Patient completed COVID-19 quarantine (2) Acute exacerbation of chronic obstructive pulmonary disease (COPD): ?Code(s): J44.1 - Chronic obstructive pulmonary disease with (acute) exacerbation ?Status:?Acute ?Assessment and Plan: Continue steroids, bronchodilators Mucomyst and dornase for her atelectasis and/or mucus plugging. Continue guaifenesin 1200 mg p.o. b.i.d. .? She is using a vibratory Cornet valve.? (3) Acute on chronic hypoxic respiratory failure: ?Code(s): J96.21 - Acute and chronic respiratory failure with hypoxia ?Status:?Acute ?Assessment and Plan: diuresing well on furosemide 40 mg IV bid, dc on 03/28 Monitor electrolytes Strict input and output monitoring Hold oral Lasix now because of soft blood pressure Patient restarted on Lasix 40 mg IV daily during rapid response today Strict input and output monitoring Patient initiated on BiPAP with AVAPS setting during prep for bone scored on transfer to IMU ... Now being transitioned to high-flow nasal cannula (4) Pneumonia: ?Code(s): J18.9 - Pneumonia, unspecified organism ?Status:?Acute ?Assessment and Plan: Patient has couple episodes of pneumonia in mid and late February as discussed with patient's daughter Cristel Started patient on IV Levaquin and IV vancomycin pharmacy to dose based on renal functions Nasal MRSA swab was negative hence vancomycin was discontinued Changed to iV Levaquin q.48h per Dr. 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 Day # 8 today Patient is currently off antimicrobial antibiotics and WBC count is trending down; currently at 12.3 Monitor patient very closely Discussed with Pulmonary in detail (5) Paroxysmal atrial fibrillation: ?Code(s): I48.0 - Paroxysmal atrial fibrillation ?Status:?Chronic ?Assessment and Plan: hols diltiazem because blood pressure is soft Continue eliquis, amiodarone (6) Coronary arteriosclerosis in [place] artery: ?Code(s): I25.10 - Atherosclerotic heart disease of [place] coronary artery without angina pectoris ?Status:?Acute ?Assessment and Plan: no chest pain mentioned(7) Anemia: ?Code(s): Acute on chronic diastolic heart failure severe pulmonary artery enlargement. ? 3. Left ventricular chamber dimension is normal. ? 4. Left ventricular systolic function is normal, estimated at 60-65%. ? 5. There is mildly increased left ventricular wall thickness
[2023-04-05] MEDS: PRAVASTATIN SODIUM 20 MG TABLET 40 MG PO (21:12)
[2023-04-06] VITALS (28 sets, daily range): BP systolic 102–126; BP diastolic 48–70; PULSE 72–115; RESP 20–26; TEMP 36–36.7; O2SAT 89–96
[2023-04-06 04:29] LABS: Basophils Percent Auto 0.2 % (0.2-1.2); Eosinophils Absolute Auto 0.1 K/mm3 (0-0.3); Hematocrit 29.3 % (37.0-47.0); Hemoglobin 8.4 g/dL (12.0-15.0); Immature Granulocyte Absolute 0.05 K/mm3 (0.00-0.031); Immature Granulocyte Percent A 0.6 % (0-0.5); Lymphocytes Absolute Auto 1.01 K/mm3 (0.9-3.2); Lymphocytes Percent Auto 11.5 % (18.3-44.2); Mean Corpuscular HGB Conc 28.7 g/dl (32-36); Mean Corpuscular Hemoglobin 26.8 pg (26-34); Mean Corpuscular Volume 93.6 fl (80-100); Mean Platelet Volume 9.5 fl (7.4-10.4); Monocytes Absolute Auto 0.4 K/mm3 (0.1-0.6); Monocytes Percent Auto 4.8 % (2.6-8.5); Neutrophils Absolute Auto 7.2 K/mm3 (1.3-6.7); Neutrophils Percent Auto 81.9 % (45.5-73.1); Platelet Count Result 129 k/mm3 (150-375); Red Blood Count 3.13 M/mm3 (4.2-5.4); Red Cell Distribution Width 24.1 % (11.5-14.5); White Blood Count 8.8 K/mm3 (4.5-10.0)
[2023-04-06 04:47] LABS: Anion Gap 9 mmol/L (8-16); Blood Urea Nitrogen 13 mg/dL (7-17); Calcium 8.5 mg/dL (8.4-10.2); Carbon Dioxide 25 mmol/L (22-30); Chloride 105 mmol/L (98-107); Estimated CRCL calculation 54 ml/min; Estimated Glomerular Filt Rate > 60; Glucose 101 mg/dL (65-110); Potassium 3.9 mmol/L (3.4-5.0); Sodium 139 mmol/L (137-145)
[2023-04-06 06:07] LABS: Alveolar/Arterial O2 Gradient 622.3 mmHg; Base Excess ABG 2.3 mEq/l (+/-2.0); HCO3 ABG 26.4 mEq/l (22.0-26.0); Oxygen Content ABG 12.4 %vol (16.0-22.0); Oxygen Saturation ABG 88.2 % (95.0-100.0); PO2 ABG 51.7 mmHg (80.0-100.0); PO2 FiO2 Ratio Arterial Blood 0.52 %; Total Hemoglobin 10.5 g/dL (12.0-18.0); pH ABG 7.448 (7.350-7.450)
[2023-04-06 06:19] LABS: Anisocytosis 2+ (NORMAL); Hypochromasia 1+ (NORMAL); Platelet Estimate Adequate (Adequate); Schistocytes None Seen (NORMAL)
[2023-04-06 06:45] LABS: Device OTHER DEVICE; Modified Allen's Test Pass; Oxyhemoglobin 84.1 % THb (90.0-100.0); Site Drawn LEFT RADIAL
--- NOTE | 2023-04-06 07:38 | PCPTNOTE ---
Patient transferred to IMU following a rapid response on 04/05/2023. Will await physician's input to resume PT.
[2023-04-06] MEDS: AMIODARONE HCL 100 MG TABLET PO (08:10)
[2023-04-06] MEDS: SERTRALINE HCL 50 MG TABLET 200 MG PO (08:10)
[2023-04-06] MEDS: VORICONAZOLE 200 MG TABLET PO ×2 (08:10→21:24)
[2023-04-06] MEDS: PANTOPRAZOLE 40 MG TABLET PO (08:10)
[2023-04-06] MEDS: POLYSACCHARIDE IRON COMPLEX 150 MG CAPSULE PO (08:10)
[2023-04-06] MEDS: guaiFENesin 12 HR 600 MG TABCR 1200 MG PO ×2 (08:11→21:24)
[2023-04-06] MEDS: APIXABAN 5 MG TABLET PO ×2 (08:11→21:24)
[2023-04-06] MEDS: ACETAMINOPHEN 325 MG TABLET 650 MG PO (08:11)
[2023-04-06] MEDS: polyethylene glycoL 3350 17 GM POWD.PACK PO (08:11)
[2023-04-06] MEDS: SENNA/DOCUSATE SODIUM TABLET 1 TAB PO (08:11)
[2023-04-06] MEDS: FUROSEMIDE INJ 40 MG/4 ML VIAL IV PUSH ×2 (08:12→17:40)
[2023-04-06] MEDS: IPRATROPIUM BR 0.02% INH SOLN 0.5 MG/2.5 ML VIAL INHALATION ×3 (08:25→19:51)
[2023-04-06] MEDS: ALBUTEROL SULFATE NEB 2.5 MG/3 ML INH INHALATION (08:25)
--- NOTE | 2023-04-06 09:19 | PCPTNOTE ---
Spoke with Dr. Hameed, pt OK to continue with therapy.
[2023-04-06 09:30] LABS: Fractional Inspired Oxygen 40 %
--- NOTE | 2023-04-06 09:41 | P.PNPL_ITS ---
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 We will know in a few days if this is Aspergillus or another mold, and we will see if she is any better treating with voriconazole. All the COVID treatments are finshed. 03/30: On voriconazole day 3. Awaiting ID of mold. 03/31 : CT scan of the chest yesterday improved; Mild pulmonary edema.; Mild atelectasis in the lungs with interval improvement.; Moderate emphysema. Small pleural effusions. Identification on the mold is not back yet. WBC is higher, 16.9. Clinically better. 04/04: Sputum with Aspergillus fumigatus species complex. CT scan on 03/30 without focal consolidations or cavitations. This may be colonization. Will continue voriconazole, day 7 today. 04/05: Continue voriconazole, day 8 today 04/06: voriconazole day 9. Discussed with Dr. Hameed, discussed with Christy Lobo, will follow with you. (2) COVID-19: Code(s): U07.1 - COVID-19 Status: Acute Assessment and Plan: Patient tested positive for COVID-19 on 03/16/2023 and started on remdesivir, dexamethasone on 03/16/23. Procalcitonin 0.1 on 03/16/2023. Remdesivir for 10 days Unless he should recover and tolerate room air with rest, ambulation and while sleeping. - Dexamethasone 6 mg IV for 10 days - Continuous pulse oximetry - Avoid any fluid overload. - Albuterol inhaler Q 4 for now, no wheezes. -negative RSV and influenza 03/19/2023: Plan: Patient is required BiPAP and high-flow nasal cannula and per and IH treatment guidelines will add baricitinib and I spoke to pharmacy and to be dosed per renal function per Pharmacy. Keep saturations are 90-94% with nasal cannula up to 15 L, if fails then Airvo high flow nasal cannula. 03/20/23: Patient tells me she continues to improve. She states she has 50% back to her baseline. She has a cough and continued shortness of breath with activity. She denies hemoptysis. Her white blood cell count is 5.0, she is afebrile. CRP decreased from 2.2 to a value of 0.6. Plan: Continue dexamethasone 6 mg IV and remdesivir 100 mg q.day, both day 5. Continue baricitinib, day 2. Avoid fluid overload and wean FiO2 to maintain saturation 90-94%. 03/21/23: Patient tells me she continues to slowly improve. States she is 75% back to her baseline except for her severe shortness of breath the and dyspnea on exertion. White blood cell count is 5.7, creatinine 0.9. Patient remains off BiPAP for 72 hours. When I enter the room the patient was on 45 L, 50% FiO2 with saturations 94%. Plan: Continue dexamethasone 6 mg IV and remdesivir 100 mg q.day, both day 6. Continue baricitinib, day 3. Avoid fluid overload and wean FiO2 to maintain saturation 90-94%. Later today will try to switch patient to high-flow nasal cannula at 15 L. 03/22/23: The patient remained on noninvasive ventilation with the AVAPS mode with the above settings and 70% overnight. The patient is awake and communicative. She states she is breathing well on the noninvasive ventilator. Her saturations on 70% are 96%. I decreased her to 60% and her saturations were 92%. She has no wheezing on exam. Her white blood cell count is 6.0, creatinine is 0.9, her weight is 67.4. Cumulative diuresis since admission is
[2023-04-06] MEDS: LEVALBUTEROL NEB 1.25 MG/3 ML INHALATION ×2 (12:33→19:51)
--- NOTE | 2023-04-06 18:17 | PM.IMPN ---
Progress Note: A&P Assessment and Plan (1) COVID-19: Code(s): U07.1 - COVID-19 Status: Acute Assessment and Plan: Patient is gradually, continue current and monitor closely. (2) Acute exacerbation of chronic obstructive pulmonary disease (COPD): Code(s): J44.1 - Chronic obstructive pulmonary disease with (acute) exacerbation Status: Acute Assessment and Plan: Gradually improving continue current treatment. (3) Acute on chronic hypoxic respiratory failure: Code(s): J96.21 - Acute and chronic respiratory failure with hypoxia Status: Acute Assessment and Plan: Continue nebs and oxygen support. (4) Atrial fibrillation with RVR: Code(s): I48.91 - Unspecified atrial fibrillation Status: Acute Assessment and Plan: Heart rate is slightly better. Continue current treatment (5) Acute on chronic congestive heart failure with left ventricular diastolic dysfunction: Code(s): I50.33 - Acute on chronic diastolic (congestive) heart failure Status: Acute Assessment and Plan: Gradually improved, continue current treatment. Plan RAPID RESPONSE CODE: (1) COVID-19: ?Code(s): U07.1 - COVID-19 ?Status:?Acute ?Assessment and Plan: Continue remdesivir and dexamethasone (03/16 initated), course completed was on BiPAP needing high flow oxygen slow improvement Patient completed COVID-19 quarantine (2) Acute exacerbation of chronic obstructive pulmonary disease (COPD): ?Code(s): J44.1 - Chronic obstructive pulmonary disease with (acute) exacerbation ?Status:?Acute ?Assessment and Plan: Continue steroids, bronchodilators Mucomyst and dornase for her atelectasis and/or mucus plugging. Continue guaifenesin 1200 mg p.o. b.i.d. .? She is using a vibratory Cornet valve.? Pulmonary switched patient from albuterol to levalbuterol (3) Acute on chronic hypoxic respiratory failure: ?Code(s): J96.21 - Acute and chronic respiratory failure with hypoxia ?Status:?Acute ?Assessment and Plan: diuresing well on furosemide 40 mg IV bid, dc on 03/28 Monitor electrolytes Strict input and output monitoring Hold oral Lasix now because of soft blood pressure Patient restarted on Lasix 40 mg IV daily during rapid response today Strict input and output monitoring Patient initiated on BiPAP with AVAPS setting during prep for bone scored on transfer to IMU ... Now being transitioned to high-flow nasal cannula (4) Pneumonia: ?Code(s): J18.9 - Pneumonia, unspecified organism ?Status:?Acute ?Assessment and Plan: Patient has couple episodes of pneumonia in mid and late February as discussed with patient's daughter Cristel Started patient on IV Levaquin and IV vancomycin pharmacy to dose based on renal functions Nasal MRSA swab was negative hence vancomycin was discontinued Changed to iV Levaquin q.48h per Dr. 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 Day # 9 today Patient is currently off antimicrobial antibiotics and WBC count is trending down; currently at 12.3 Monitor patient very closely Discussed with Pulmonary in detail (5) Paroxysmal atrial fibrillation: ?Code(s): I48.0 - Paroxysmal atrial fibrillation ?Status:?Chronic ?Assessment and Plan: hold diltiazem because blood pressure is soft Continue eliquis, amiodarone Pulmonary wants to hold off on diltiazem as AFib is controlled on amiodarone (6) Coronary arteriosclerosis in [place] artery: ?Code(s): I25.10 - Atherosclerotic heart disease of [place] coronary artery without angina pectoris ?Status:?Acute ?Assessment and Plan: no chest pain mentioned(7) Anemia: ?Code(s): Acute on chronic diastolic heart failure severe pulmonary artery enlargement. ? 3. Left ventricular chamber
[2023-04-06] MEDS: BUDESONIDE RESPULE NEB 0.5 MG/2 ML AMP INHALATION (19:51)
[2023-04-06] MEDS: ALPRAZolam (*CRX) 0.5 MG TABLET 1 MG PO (21:23)
[2023-04-06] MEDS: PRAVASTATIN SODIUM 20 MG TABLET 40 MG PO (21:24)
[2023-04-07] VITALS (24 sets, daily range): BP systolic 116–133; BP diastolic 50–69; PULSE 85–123; RESP 20–28; TEMP 36.5–37.5; O2SAT 90–99
[2023-04-07 05:02] LABS: Basophils Percent Auto 0.3 % (0.2-1.2); Eosinophils Absolute Auto 0.1 K/mm3 (0-0.3); Eosinophils Percent Auto 0.7 % (0-4.4); Hematocrit 29.3 % (37.0-47.0); Hemoglobin 8.3 g/dL (12.0-15.0); Immature Granulocyte Absolute 0.05 K/mm3 (0.00-0.031); Immature Granulocyte Percent A 0.6 % (0-0.5); Lymphocytes Absolute Auto 1.16 K/mm3 (0.9-3.2); Lymphocytes Percent Auto 13.4 % (18.3-44.2); Mean Corpuscular HGB Conc 28.3 g/dl (32-36); Mean Corpuscular Hemoglobin 26.9 pg (26-34); Mean Corpuscular Volume 94.8 fl (80-100); Mean Platelet Volume 10.5 fl (7.4-10.4); Monocytes Absolute Auto 0.4 K/mm3 (0.1-0.6); Platelet Count Result 159 k/mm3 (150-375); Red Blood Count 3.09 M/mm3 (4.2-5.4); White Blood Count 8.7 K/mm3 (4.5-10.0)
[2023-04-07 05:15] LABS: Alanine Aminotransferase 12 U/L (6-35); Albumin Level 3.1 g/dL (3.5-5.1); Alkaline Phosphatase 113 U/L (38-126); Anion Gap 5 mmol/L (8-16); Aspartate Amino Transferase 22 U/L (14-36); Bilirubin,Total 0.5 mg/dL (0.2-1.3); Blood Urea Nitrogen 11 mg/dL (7-17); Calcium 8.5 mg/dL (8.4-10.2); Carbon Dioxide 30 mmol/L (22-30); Chloride 105 mmol/L (98-107); Estimated CRCL calculation 38 ml/min; Estimated Glomerular Filt Rate 60; Glucose 96 mg/dL (65-110); Potassium 3.9 mmol/L (3.4-5.0); Sodium 140 mmol/L (137-145)
[2023-04-07 05:30] LABS: Anisocytosis 1+ (NORMAL); Hypochromasia 1+ (NORMAL); Platelet Estimate Adequate (Adequate); Schistocytes None Seen (NORMAL)
[2023-04-07] MEDS: LEVALBUTEROL NEB 1.25 MG/3 ML INHALATION ×4 (07:54→20:07)
[2023-04-07] MEDS: BUDESONIDE RESPULE NEB 0.5 MG/2 ML AMP INHALATION ×2 (07:54→20:07)
[2023-04-07] MEDS: IPRATROPIUM BR 0.02% INH SOLN 0.5 MG/2.5 ML VIAL INHALATION ×4 (07:54→20:07)
[2023-04-07 08:01] LABS: NT Pro B Type Natriuretic Pept 1950 pg/mL (19.9-100)
[2023-04-07] MEDS: AMIODARONE HCL 100 MG TABLET PO (09:59)
[2023-04-07] MEDS: POLYSACCHARIDE IRON COMPLEX 150 MG CAPSULE PO (09:59)
[2023-04-07] MEDS: SERTRALINE HCL 50 MG TABLET 200 MG PO (09:59)
[2023-04-07] MEDS: COLESTIPOL HCL 1 GM TABLET 2 GM PO (09:59)
[2023-04-07] MEDS: PANTOPRAZOLE 40 MG TABLET PO (09:59)
[2023-04-07] MEDS: SENNA/DOCUSATE SODIUM TABLET 1 TAB PO (10:00)
[2023-04-07] MEDS: VORICONAZOLE 200 MG TABLET PO ×2 (10:00→20:25)
[2023-04-07] MEDS: APIXABAN 5 MG TABLET PO (10:00)
[2023-04-07] MEDS: FUROSEMIDE INJ 40 MG/4 ML VIAL IV PUSH ×2 (10:15→18:43)
[2023-04-07] MEDS: guaiFENesin 12 HR 600 MG TABCR 1200 MG PO ×2 (11:19→20:25)
[2023-04-07] MEDS: PRAVASTATIN SODIUM 20 MG TABLET 40 MG PO (20:25)
[2023-04-07] MEDS: ALPRAZolam (*CRX) 0.5 MG TABLET 1 MG PO (20:29)
[2023-04-07] MEDS: ACETAMINOPHEN 325 MG TABLET 650 MG PO (20:34)
--- NOTE | 2023-04-07 20:54 | P.PNIM_ITS ---
Progress Note: A&P Assessment and Plan (1) COVID-19: Code(s): U07.1 - COVID-19 Status: Acute Assessment and Plan: Patient is gradually, continue current and monitor closely. (2) Acute exacerbation of chronic obstructive pulmonary disease (COPD): Code(s): J44.1 - Chronic obstructive pulmonary disease with (acute) exacerbation Status: Acute Assessment and Plan: Gradually improving continue current treatment. (3) Acute on chronic hypoxic respiratory failure: Code(s): J96.21 - Acute and chronic respiratory failure with hypoxia Status: Acute Assessment and Plan: Continue nebs and oxygen support. (4) Atrial fibrillation with RVR: Code(s): I48.91 - Unspecified atrial fibrillation Status: Acute Assessment and Plan: Heart rate is slightly better. Continue current treatment (5) Acute on chronic congestive heart failure with left ventricular diastolic dysfunction: Code(s): I50.33 - Acute on chronic diastolic (congestive) heart failure Status: Acute Assessment and Plan: Gradually improved, continue current treatment. Plan RAPID RESPONSE CODE: (1) COVID-19: ?Code(s): U07.1 - COVID-19 ?Status:?Acute ?Assessment and Plan: * Continue remdesivir and dexamethasone (03/16 initated), course completed * was on BiPAP * needing high flow oxygen slow improvement * Patient completed COVID-19 quarantine (2) Acute exacerbation of chronic obstructive pulmonary disease (COPD): ?Code(s): J44.1 - Chronic obstructive pulmonary disease with (acute) exacerbation ?Status:?Acute ?Assessment and Plan: * Continue steroids, bronchodilators * Mucomyst and dornase for her atelectasis and/or mucus plugging. Continue guaifenesin 1200 mg p.o. b.i.d. .? She is using a vibratory Cornet valve.? * Pulmonary switched patient from albuterol to levalbuterol (3) Acute on chronic hypoxic respiratory failure: ?Code(s): J96.21 - Acute and chronic respiratory failure with hypoxia ?Status:?Acute ?Assessment and Plan: * diuresing well * on furosemide 40 mg IV bid, dc on 03/28 * Monitor electrolytes * Strict input and output monitoring * Hold oral Lasix now because of soft blood pressure * Patient restarted on Lasix 40 mg IV daily during rapid response today * Strict input and output monitoring * Patient initiated on BiPAP with AVAPS setting during prep for bone scored on transfer to IMU ... Now being transitioned to high-flow nasal cannula * Patient is slowly being weaned of to oxygen 5 L via nasal cannula (4) Pneumonia: ?Code(s): J18.9 - Pneumonia, unspecified organism ?Status:?Acute ?Assessment and Plan: * Patient has couple episodes of pneumonia in mid and late February as discussed with patient's daughter Cristel * Started patient on IV Levaquin and IV vancomycin pharmacy to dose based on renal functions * Nasal MRSA swab was negative hence vancomycin was discontinued * Changed to iV Levaquin q.48h per Dr. Donato * Completed antibiotics treatment * Dr Liz suspects that she may have secondary Aspergillus? infection with COVID; oral voriconazole started on 03/28 ... Day # 9 today * Patient is currently off antimicrobial antibiotics and WBC count is trending down; currently at 12.3 * Monitor patient very closely * Discussed with Pulmonary in detail (5) Paroxysmal atrial fibrillation: ?Code(s): I48.0 - Paroxysmal atrial fibrillation ?Status:?Chronic ?Assessment and Plan: * hold diltiazem because
--- NOTE | 2023-04-07 20:54 | PM.IMPN ---
Progress Note: A&P Assessment and Plan (1) COVID-19: Code(s): U07.1 - COVID-19 Status: Acute Assessment and Plan: Patient is gradually, continue current and monitor closely. (2) Acute exacerbation of chronic obstructive pulmonary disease (COPD): Code(s): J44.1 - Chronic obstructive pulmonary disease with (acute) exacerbation Status: Acute Assessment and Plan: Gradually improving continue current treatment. (3) Acute on chronic hypoxic respiratory failure: Code(s): J96.21 - Acute and chronic respiratory failure with hypoxia Status: Acute Assessment and Plan: Continue nebs and oxygen support. (4) Atrial fibrillation with RVR: Code(s): I48.91 - Unspecified atrial fibrillation Status: Acute Assessment and Plan: Heart rate is slightly better. Continue current treatment (5) Acute on chronic congestive heart failure with left ventricular diastolic dysfunction: Code(s): I50.33 - Acute on chronic diastolic (congestive) heart failure Status: Acute Assessment and Plan: Gradually improved, continue current treatment. Plan RAPID RESPONSE CODE: (1) COVID-19: ?Code(s): U07.1 - COVID-19 ?Status:?Acute ?Assessment and Plan: Continue remdesivir and dexamethasone (03/16 initated), course completed was on BiPAP needing high flow oxygen slow improvement Patient completed COVID-19 quarantine (2) Acute exacerbation of chronic obstructive pulmonary disease (COPD): ?Code(s): J44.1 - Chronic obstructive pulmonary disease with (acute) exacerbation ?Status:?Acute ?Assessment and Plan: Continue steroids, bronchodilators Mucomyst and dornase for her atelectasis and/or mucus plugging. Continue guaifenesin 1200 mg p.o. b.i.d. .? She is using a vibratory Cornet valve.? Pulmonary switched patient from albuterol to levalbuterol (3) Acute on chronic hypoxic respiratory failure: ?Code(s): J96.21 - Acute and chronic respiratory failure with hypoxia ?Status:?Acute ?Assessment and Plan: diuresing well on furosemide 40 mg IV bid, dc on 03/28 Monitor electrolytes Strict input and output monitoring Hold oral Lasix now because of soft blood pressure Patient restarted on Lasix 40 mg IV daily during rapid response today Strict input and output monitoring Patient initiated on BiPAP with AVAPS setting during prep for bone scored on transfer to IMU ... Now being transitioned to high-flow nasal cannula Patient is slowly being weaned of to oxygen 5 L via nasal cannula (4) Pneumonia: ?Code(s): J18.9 - Pneumonia, unspecified organism ?Status:?Acute ?Assessment and Plan: Patient has couple episodes of pneumonia in mid and late February as discussed with patient's daughter Cristel Started patient on IV Levaquin and IV vancomycin pharmacy to dose based on renal functions Nasal MRSA swab was negative hence vancomycin was discontinued Changed to iV Levaquin q.48h per Dr. 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 Day # 9 today Patient is currently off antimicrobial antibiotics and WBC count is trending down; currently at 12.3 Monitor patient very closely Discussed with Pulmonary in detail (5) Paroxysmal atrial fibrillation: ?Code(s): I48.0 - Paroxysmal atrial fibrillation ?Status:?Chronic ?Assessment and Plan: hold diltiazem because blood pressure is soft Continue eliquis, amiodarone Pulmonary wants to hold off on diltiazem as AFib is controlled on amiodarone Cardiology consult given for balancing cardiac meds for AFib heart rate control versus hypotension (6) Coronary arteriosclerosis in [place] artery: ?Code(s): I25.10 - Atherosclerotic heart disease of [place] coronary artery without angina pectoris ?Status:?Acute ?Assessment and Plan
--- NOTE | 2023-04-07 23:14 | PCRCNOTE ---
RT attempted to give pt breathing tx. pt is asleep, therefore pt Q4 while awake is not given at 0000.
[2023-04-08] VITALS (19 sets, daily range): BP systolic 107–125; BP diastolic 58–90; PULSE 68–128; RESP 18–22; TEMP 36.2–36.9; O2SAT 92–99
[2023-04-08 06:55] LABS: Basophils Percent Auto 0.2 % (0.2-1.2); Eosinophils Absolute Auto 0.1 K/mm3 (0-0.3); Eosinophils Percent Auto 0.9 % (0-4.4); Hemoglobin 9.5 g/dL (12.0-15.0); Immature Granulocyte Absolute 0.02 K/mm3 (0.00-0.031); Immature Granulocyte Percent A 0.2 % (0-0.5); Lymphocytes Absolute Auto 1.05 K/mm3 (0.9-3.2); Lymphocytes Percent Auto 12.9 % (18.3-44.2); Mean Corpuscular HGB Conc 28.8 g/dl (32-36); Mean Corpuscular Hemoglobin 26.9 pg (26-34); Mean Corpuscular Volume 93.5 fl (80-100); Mean Platelet Volume 9.4 fl (7.4-10.4); Monocytes Absolute Auto 0.4 K/mm3 (0.1-0.6); Monocytes Percent Auto 4.4 % (2.6-8.5); Neutrophils Absolute Auto 6.6 K/mm3 (1.3-6.7); Neutrophils Percent Auto 81.4 % (45.5-73.1); Platelet Count Result 167 k/mm3 (150-375); Red Blood Count 3.53 M/mm3 (4.2-5.4); Red Cell Distribution Width 23.6 % (11.5-14.5); White Blood Count 8.2 K/mm3 (4.5-10.0)
[2023-04-08 07:00] LABS: INR 1.2
[2023-04-08 07:01] LABS: Partial Thromboplastin Time 39.5 SECONDS (22.3-36.8)
[2023-04-08 07:14] LABS: Anion Gap 9 mmol/L (8-16); Blood Urea Nitrogen 10 mg/dL (7-17); Calcium 8.6 mg/dL (8.4-10.2); Carbon Dioxide 26 mmol/L (22-30); Chloride 105 mmol/L (98-107); Estimated CRCL calculation 48 ml/min; Estimated Glomerular Filt Rate > 60; Glucose 104 mg/dL (65-110); Potassium 3.3 mmol/L (3.4-5.0); Sodium 140 mmol/L (137-145)
[2023-04-08] MEDS: IPRATROPIUM BR 0.02% INH SOLN 0.5 MG/2.5 ML VIAL INHALATION ×3 (08:44→20:54)
[2023-04-08] MEDS: BUDESONIDE RESPULE NEB 0.5 MG/2 ML AMP INHALATION ×2 (08:44→20:55)
[2023-04-08] MEDS: LEVALBUTEROL NEB 1.25 MG/3 ML INHALATION ×3 (08:44→20:51)
[2023-04-08] MEDS: FUROSEMIDE INJ 40 MG/4 ML VIAL IV PUSH (09:32)
[2023-04-08 09:34] LABS: Anisocytosis 1+ (NORMAL); Hypochromasia 1+ (NORMAL); Platelet Estimate Adequate (Adequate); Schistocytes None Seen (NORMAL)
--- NOTE | 2023-04-08 09:54 | PM.PNPUL ---
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 We will know in a few days if this is Aspergillus or another mold, and we will see if she is any better treating with voriconazole. All the COVID treatments are finshed. 03/30: On voriconazole day 3. Awaiting ID of mold. 03/31 : CT scan of the chest yesterday improved; Mild pulmonary edema.; Mild atelectasis in the lungs with interval improvement.; Moderate emphysema. Small pleural effusions. Identification on the mold is not back yet. WBC is higher, 16.9. Clinically better. 04/04: Sputum with Aspergillus fumigatus species complex. CT scan on 03/30 without focal consolidations or cavitations. This may be colonization. Will continue voriconazole, day 7 today. 04/05: Continue voriconazole, day 8 today 04/06: voriconazole day 9. 04/07: Voriconazole day 10. To have thoracentesis tomorrow to rule out fungal empyema. 04/08: Voriconazole day 11. To have ultrasound-guided thoracentesis today. If no evidence of an empyema would discontinue voriconazole Pulmonary inpatient consultative services will resume on 04/11/2023. Call with questions. Discussed with Dr. Hameed, will follow with you. (2) COVID-19: Code(s): U07.1 - COVID-19 Status: Acute Assessment and Plan: Patient tested positive for COVID-19 on 03/16/2023 and started on remdesivir, dexamethasone on 03/16/23. Procalcitonin 0.1 on 03/16/2023. Remdesivir for 10 days Unless he should recover and tolerate room air with rest, ambulation and while sleeping. - Dexamethasone 6 mg IV for 10 days - Continuous pulse oximetry - Avoid any fluid overload. - Albuterol inhaler Q 4 for now, no wheezes. -negative RSV and influenza 03/19/2023: Plan: Patient is required BiPAP and high-flow nasal cannula and per and [facility] treatment guidelines will add baricitinib and I spoke to pharmacy and to be dosed per renal function per Pharmacy. Keep saturations are 90-94% with nasal cannula up to 15 L, if fails then Airvo high flow nasal cannula. 03/20/23: Patient tells me she continues to improve. She states she has 50% back to her baseline. She has a cough and continued shortness of breath with activity. She denies hemoptysis. Her white blood cell count is 5.0, she is afebrile. CRP decreased from 2.2 to a value of 0.6. Plan: Continue dexamethasone 6 mg IV and remdesivir 100 mg q.day, both day 5. Continue baricitinib, day 2. Avoid fluid overload and wean FiO2 to maintain saturation 90-94%. 03/21/23: Patient tells me she continues to slowly improve. States she is 75% back to her baseline except for her severe shortness of breath the and dyspnea on exertion. White blood cell count is 5.7, creatinine 0.9. Patient remains off BiPAP for 72 hours. When I enter the room the patient was on 45 L, 50% FiO2 with saturations 94%. Plan: Continue dexamethasone 6 mg IV and remdesivir 100 mg q.day, both day 6. Continue baricitinib, day 3. Avoid fluid overload and wean FiO2 to maintain saturation 90-94%. Later today will try to switch patient to high-flow nasal cannula at 15 L. 03/22/23: The patient remained on noninvasive ventilation with the AVAPS mode with the above settings and 70% overnight. The patient is awake and communicative. She states she is breathing well on the noninvasive ventilator. Her saturations on 70% are 96%. I decreased her to 60% and her saturations were 92%. She has no wheezing on exam. Her white blood cell count is 6.0, creatinine is 0.9, her weight is 67.4. Cumulative diuresis since a
--- NOTE | 2023-04-08 10:37 | PCOTNOTE ---
The patient treatment was not able to be completed. Patient gone for a thoracentesis. Will plan to continue treatment per plan of care.
[2023-04-08 11:46] LABS: Lactate Dehydrogenase 199 U/L (120-246)
[2023-04-08 12:08] LABS: pH Pleural Fluid > 7.500 (7.210-7.500)
[2023-04-08] MEDS: POLYSACCHARIDE IRON COMPLEX 150 MG CAPSULE PO (12:11)
[2023-04-08] MEDS: COLESTIPOL HCL 1 GM TABLET 2 GM PO (12:11)
[2023-04-08] MEDS: VORICONAZOLE 200 MG TABLET PO ×2 (12:11→20:15)
[2023-04-08] MEDS: guaiFENesin 12 HR 600 MG TABCR 1200 MG PO ×2 (12:12→20:14)
[2023-04-08] MEDS: AMIODARONE HCL 100 MG TABLET PO (12:12)
[2023-04-08] MEDS: PANTOPRAZOLE 40 MG TABLET PO (12:12)
[2023-04-08] MEDS: SERTRALINE HCL 50 MG TABLET 200 MG PO (12:12)
[2023-04-08] MEDS: SENNA/DOCUSATE SODIUM TABLET 1 TAB PO ×2 (12:12→17:10)
--- NOTE | 2023-04-08 13:44 | PM.CNCAR ---
Assessment and Plan Assessment and plan (1) Atrial fibrillation with RVR: Code(s): I48.91 - Unspecified atrial fibrillation Status: Acute Assessment and Plan: Chronic atrial fibrillation managed with rate control and anticoagulation. Diltiazem was stopped earlier in her hospitalization because of hypotension. She has had some mild tachycardia over the past couple of days. Blood pressure now is normal. Will resume diltiazem at a lower dose, 30 mg q.6 hours. If blood pressure tolerates this, and heart rate is better controlled can switch to long-acting diltiazem Continue amiodarone Continue anticoagulation with apixaban (2) CAD (coronary artery disease): Code(s): I25.10 - Atherosclerotic heart disease of [place] coronary artery without angina pectoris Status: Acute Assessment and Plan: Continue statin. (3) COVID-19: Code(s): U07.1 - COVID-19 Status: Acute Assessment and Plan: Resolved. Completed 10 day course Remdesivir and steroids (4) Acute on chronic congestive heart failure with left ventricular diastolic dysfunction: Code(s): I50.33 - Acute on chronic diastolic (congestive) heart failure Status: Acute Assessment and Plan: She has diastolic dysfunction. Had thoracentesis earlier today with 400mL fluid removed. On exam looks euvolemic, so I think we can decrease the lasix to 40mg p.o. daily. History of Present Illness History of Present Illness Consult date/time: 04/08/23 13:44 Requesting physician: Lorenzo Hameed MD Consult reason: atrial fibrillation Reason For Visit: covid,acute hypoxia,copd exacerbation,afib with rv Narrative: Maria Dolores Henry Is a 77-year-old female with a past medical history significant for coronary artery disease status post PCI to the RCA in 2020, atrial fibrillation, and chronic dyspnea on exertion. She follows with a mechanic driver Dr. Patel at [place]. She is admitted to [facility] with COVID-19 and pneumonia. Cardiology is being asked to see her for atrial fibrillation. Earlier in her hospitalization her diltiazem was discontinued because of hypotension. Since that time she has been mildly tachycardic. Patient denies feeling any palpitations or chest pain. Her shortness of breath has significantly improved. She is feeling well and does not have any complaints at the time of my visit with her. Review of Systems Review of Systems: All systems reviewed & are unremarkable except as noted in HPI and below PMFSH Past Medical History Medical History Anxiety Chronic anticoagulation Chronic kidney disease, stage 3 Compression fracture of body of thoracic vertebra Hyperlipidemia Hypertension Paroxysmal atrial fibrillation Trochanteric fracture Surgical History Surgical History History of appendectomy History of cardiac catheterization History of cholecystectomy History of coronary artery stent placement History of hysterectomy History of partial colectomy History of tonsillectomy Family History Family History Father Family history of emphysema Patient's father is Mother Patient's mother is Family history of chronic obstructive pulmonary disease Social History Social History Smoking packs per day: 1.5 Smoking cigarettes per day: 30.0 Years smoked: 55 Smoking pack-years: 82.50 Smoking status: Former smoker Tobacco type: cigarettes Second hand tobacco smoke exposure: No Smoking end date: 10/06/22 Alcohol intake: never Drinks per week: 0 Substance use: never Substance use type: does not use Do You Feel Safe in your Home?: Yes Lack of Transportation: No Lack of Food: Never True Current Housing: I Have Housing Concerned About Future
[2023-04-08 14:01] LABS: Appearance Pleural Fluid Hazy (Clear); Color Pleural Fluid Yellow (Colorless); Pleural fluid source Pleural fluid
[2023-04-08 14:03] LABS: Nucleated Cell Pleural Fluid 5005 /uL (0-1000)
[2023-04-08 14:04] LABS: RBC Pleural Fluid 7000 /uL (0-0)
[2023-04-08 14:06] LABS: Lymphocytes Pleural Fluid 14 %; Monocytes Pleural Fluid 6 %; Neutrophils Pleural Fluid 80 % (0-25)
[2023-04-08] MEDS: dilTIAZem HCL 30 MG TABLET PO ×2 (17:10→23:17)
[2023-04-08] MEDS: PRAVASTATIN SODIUM 20 MG TABLET 40 MG PO (20:15)
--- NOTE | 2023-04-08 20:48 | P.PNIM_ITS ---
Progress Note: A&P Assessment and Plan (1) COVID-19: Code(s): U07.1 - COVID-19 Status: Acute Assessment and Plan: Patient is gradually, continue current and monitor closely. (2) Acute exacerbation of chronic obstructive pulmonary disease (COPD): Code(s): J44.1 - Chronic obstructive pulmonary disease with (acute) exacerbation Status: Acute Assessment and Plan: Gradually improving continue current treatment. (3) Acute on chronic hypoxic respiratory failure: Code(s): J96.21 - Acute and chronic respiratory failure with hypoxia Status: Acute Assessment and Plan: Continue nebs and oxygen support. (4) Atrial fibrillation with RVR: Code(s): I48.91 - Unspecified atrial fibrillation Status: Acute Assessment and Plan: Heart rate is slightly better. Continue current treatment (5) Acute on chronic congestive heart failure with left ventricular diastolic dysfunction: Code(s): I50.33 - Acute on chronic diastolic (congestive) heart failure Status: Acute Assessment and Plan: Gradually improved, continue current treatment. Plan RAPID RESPONSE CODE: (1) COVID-19: ?Code(s): U07.1 - COVID-19 ?Status:?Acute ?Assessment and Plan: * Continue remdesivir and dexamethasone (03/16 initated), course completed * was on BiPAP * needing high flow oxygen slow improvement * Patient completed COVID-19 quarantine (2) Acute exacerbation of chronic obstructive pulmonary disease (COPD): ?Code(s): J44.1 - Chronic obstructive pulmonary disease with (acute) exacerbation ?Status:?Acute ?Assessment and Plan: * Continue steroids, bronchodilators * Mucomyst and dornase for her atelectasis and/or mucus plugging. Continue guaifenesin 1200 mg p.o. b.i.d. .? She is using a vibratory Cornet valve.? * Pulmonary switched patient from albuterol to levalbuterol (3) Acute on chronic hypoxic respiratory failure: ?Code(s): J96.21 - Acute and chronic respiratory failure with hypoxia ?Status:?Acute ?Assessment and Plan: * diuresing well * on furosemide 40 mg IV bid, dc on 03/28 * Monitor electrolytes * Strict input and output monitoring * Hold oral Lasix now because of soft blood pressure * Patient restarted on Lasix 40 mg IV daily during rapid response today * Strict input and output monitoring * Patient initiated on BiPAP with AVAPS setting during prep for bone scored on transfer to IMU ... transitioned to high-flow nasal cannula * Patient is slowly being weaned of to oxygen ... Now down to only 3 liters/minutes via nasal cannula * Patient underwent thoracentesis with 400 cc fluid withdrawn from right pleural cavity (4) Pneumonia: ?Code(s): J18.9 - Pneumonia, unspecified organism ?Status:?Acute ?Assessment and Plan: * Patient has couple episodes of pneumonia in mid and late February as discussed with patient's daughter Cristel * Started patient on IV Levaquin and IV vancomycin pharmacy to dose based on renal functions * Nasal MRSA swab was negative hence vancomycin was discontinued * Changed to iV Levaquin q.48h per Dr. Donato * Completed antibiotics treatment * Dr Liz suspects that she may have secondary Aspergillus? infection with COVID; oral voriconazole started on 03/28 ... Day # 11 today * Patient is currently off antimicrobial antibiotics and WBC count is trending down; currently at 12.3 * Monitor patient very closely * Discussed with Pulmonary in detail (5) Paroxysmal atrial fibrillation: ?Code(s):
--- NOTE | 2023-04-08 20:48 | PM.IMPN ---
Progress Note: A&P Assessment and Plan (1) COVID-19: Code(s): U07.1 - COVID-19 Status: Acute Assessment and Plan: Patient is gradually, continue current and monitor closely. (2) Acute exacerbation of chronic obstructive pulmonary disease (COPD): Code(s): J44.1 - Chronic obstructive pulmonary disease with (acute) exacerbation Status: Acute Assessment and Plan: Gradually improving continue current treatment. (3) Acute on chronic hypoxic respiratory failure: Code(s): J96.21 - Acute and chronic respiratory failure with hypoxia Status: Acute Assessment and Plan: Continue nebs and oxygen support. (4) Atrial fibrillation with RVR: Code(s): I48.91 - Unspecified atrial fibrillation Status: Acute Assessment and Plan: Heart rate is slightly better. Continue current treatment (5) Acute on chronic congestive heart failure with left ventricular diastolic dysfunction: Code(s): I50.33 - Acute on chronic diastolic (congestive) heart failure Status: Acute Assessment and Plan: Gradually improved, continue current treatment. Plan RAPID RESPONSE CODE: (1) COVID-19: ?Code(s): U07.1 - COVID-19 ?Status:?Acute ?Assessment and Plan: Continue remdesivir and dexamethasone (03/16 initated), course completed was on BiPAP needing high flow oxygen slow improvement Patient completed COVID-19 quarantine (2) Acute exacerbation of chronic obstructive pulmonary disease (COPD): ?Code(s): J44.1 - Chronic obstructive pulmonary disease with (acute) exacerbation ?Status:?Acute ?Assessment and Plan: Continue steroids, bronchodilators Mucomyst and dornase for her atelectasis and/or mucus plugging. Continue guaifenesin 1200 mg p.o. b.i.d. .? She is using a vibratory Cornet valve.? Pulmonary switched patient from albuterol to levalbuterol (3) Acute on chronic hypoxic respiratory failure: ?Code(s): J96.21 - Acute and chronic respiratory failure with hypoxia ?Status:?Acute ?Assessment and Plan: diuresing well on furosemide 40 mg IV bid, dc on 03/28 Monitor electrolytes Strict input and output monitoring Hold oral Lasix now because of soft blood pressure Patient restarted on Lasix 40 mg IV daily during rapid response today Strict input and output monitoring Patient initiated on BiPAP with AVAPS setting during prep for bone scored on transfer to IMU ... transitioned to high-flow nasal cannula Patient is slowly being weaned of to oxygen ... Now down to only 3 liters/minutes via nasal cannula Patient underwent thoracentesis with 400 cc fluid withdrawn from right pleural cavity (4) Pneumonia: ?Code(s): J18.9 - Pneumonia, unspecified organism ?Status:?Acute ?Assessment and Plan: Patient has couple episodes of pneumonia in mid and late February as discussed with patient's daughter Cristel Started patient on IV Levaquin and IV vancomycin pharmacy to dose based on renal functions Nasal MRSA swab was negative hence vancomycin was discontinued Changed to iV Levaquin q.48h per Dr. 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 Day # 11 today Patient is currently off antimicrobial antibiotics and WBC count is trending down; currently at 12.3 Monitor patient very closely Discussed with Pulmonary in detail (5) Paroxysmal atrial fibrillation: ?Code(s): I48.0 - Paroxysmal atrial fibrillation ?Status:?Chronic ?Assessment and Plan: hold diltiazem because blood pressure is soft Continue eliquis, amiodarone Pulmonary wants to hold off on diltiazem as AFib is controlled on amiodarone Cardiology consult given for balancing cardiac meds for AFib heart rate control versus hypotension (6) Coronary arteriosclerosis in [place] artery: ?Code(s): I25.10 - Atherosclerot
[2023-04-08] MEDS: ALPRAZolam (*CRX) 0.5 MG TABLET 1 MG PO (21:20)
[2023-04-09] VITALS (15 sets, daily range): BP systolic 113–125; BP diastolic 61–95; PULSE 88–119; RESP 18–32; TEMP 36.3–36.9; O2SAT 91–96
[2023-04-09] MEDS: dilTIAZem HCL 30 MG TABLET PO (05:41)
[2023-04-09] MEDS: SERTRALINE HCL 50 MG TABLET 200 MG PO (09:36)
[2023-04-09] MEDS: SENNA/DOCUSATE SODIUM TABLET 1 TAB PO (09:36)
[2023-04-09] MEDS: VORICONAZOLE 200 MG TABLET PO ×2 (09:37→20:26)
[2023-04-09] MEDS: PANTOPRAZOLE 40 MG TABLET PO (09:37)
[2023-04-09] MEDS: COLESTIPOL HCL 1 GM TABLET 2 GM PO (09:37)
[2023-04-09] MEDS: FUROSEMIDE 40 MG TABLET PO (09:37)
[2023-04-09] MEDS: guaiFENesin 12 HR 600 MG TABCR 1200 MG PO ×2 (09:37→20:26)
[2023-04-09] MEDS: AMIODARONE HCL 100 MG TABLET PO (09:37)
[2023-04-09] MEDS: POLYSACCHARIDE IRON COMPLEX 150 MG CAPSULE PO (09:37)
--- NOTE | 2023-04-09 10:14 | PM.PNCARD ---
Progress Note: A&P Assessment and Plan (1) Atrial fibrillation with RVR: Code(s): I48.91 - Unspecified atrial fibrillation Status: Acute Assessment and Plan: Chronic atrial fibrillation managed with rate control and anticoagulation.? Diltiazem was stopped earlier in her hospitalization because of hypotension.? She has had some mild tachycardia over the past couple of days.? Blood pressure now is normal. Heart rate in the 100s to 110s currently. Will increase her Diltiazem to 60mg Q6H for better rate control. If blood pressure tolerates this, and heart rate is better controlled can switch to long-acting diltiazem Continue Amiodarone Continue anticoagulation with Apixaban (2) CAD (coronary artery disease): Code(s): I25.10 - Atherosclerotic heart disease of [place] coronary artery without angina pectoris Status: Acute Assessment and Plan: Continue statin. (3) COVID-19: Code(s): U07.1 - COVID-19 Status: Acute Assessment and Plan: Completed 10 day course Remdesivir and steroids (4) Acute on chronic congestive heart failure with left ventricular diastolic dysfunction: Code(s): I50.33 - Acute on chronic diastolic (congestive) heart failure Status: Acute Assessment and Plan: CXR this AM shows shows stable diffuse lung disease, consistent with pulmonary edema versus pneumonia, stable small pleural effusions. Therefore, will continue with Lasix 40mg IV BID. Please monitor strict I/Os. Subjective Date/time seen: 04/09/23 10:14 Interval history: Reason for visit: Atrial fibrillation with RVR HPI: Maria Dolores Henry Is a 77-year-old female with a past medical history significant for coronary artery disease status post PCI to the RCA in 2020, atrial fibrillation, and chronic dyspnea on exertion.? ? She follows with a channel turner Dr. Patel at [place].? She is admitted to [facility] with COVID-19 and pneumonia.? Cardiology is being asked to see her for atrial fibrillation.? Earlier in her hospitalization her diltiazem was discontinued because of hypotension.? Since that time she has been mildly tachycardic.? Patient denies feeling any palpitations or chest pain.? Her shortness of breath has significantly improved.? She is feeling well and does not have any complaints at the time of my visit with her. Date of service 04/09: Feeling okay this morning. CXR done this morning shows stable diffuse lung disease, consistent with pulmonary edema versus pneumonia, stable small pleural effusions. HR in the 100s to 110s. Blood pressure is stable. Review of Systems Review of Systems: All systems reviewed & are unremarkable except as noted in HPI and below (HPI) Exam Const: General: no acute distress Other: Very hard of hearing HENMT: Mouth: Yes dry mucous membranes Eyes: General: appearance normal, both eyes and all related structures Sclera: sclerae normal Resp: Auscultation: clear to auscultation bilaterally and diminished lung sounds Cardio: Rate: tachycardic Rhythm: abnormal rhythm irregularly irregular Neuro: Speech: normal speech Psych: Mental Status: mental status grossly normal Affect: normal affect Objective Data Vital Signs Vital Signs: Vital Signs - 24 hr 04/08/23 12:12 04/08/23 12:00 04/08/23 12:00 Temperature 36.2 C L Pulse Rate 106 H 101 H 68 Respiratory Rate 18 Blood Pressure 107/90 Pulse Oximetry 96 Oxygen Delivery Oxygen Flow Rate 04/08/23 15:35 04/08/23 16:04 04/08/23 16:00 Temperature 36.3 C L Pulse Rate 115 H 113 H 112 H Respiratory Rate 20 22 H Blood Pressure 116/58 L Pulse Oximetry 93 Oxygen Delivery Oxygen Flow Rate 04/08/23 12:00 04/08/23 20:23 04/08/23 20:58 Temperature 36.4 C Pulse Rate 114 H 112 H Respiratory Rate 20 20 Blood Pressure 123/68 Pulse Oximetry 95 92 Oxygen Delivery Nasal Cannula Oxygen Flow Rate 2 04/08/23 21:11 04/08/23 21:12 04/08/23 20:00
[2023-04-09] MEDS: IPRATROPIUM BR 0.02% INH SOLN 0.5 MG/2.5 ML VIAL INHALATION ×3 (10:56→20:32)
[2023-04-09] MEDS: LEVALBUTEROL NEB 1.25 MG/3 ML INHALATION ×3 (10:56→20:32)
[2023-04-09] MEDS: KCL 20 MEQ/SW 100 ML 100 ML 50 MEQ IVPB (12:37)
[2023-04-09] MEDS: FUROSEMIDE INJ 40 MG/4 ML VIAL IV PUSH ×2 (12:38→18:57)
[2023-04-09] MEDS: dilTIAZem HCL 60 MG TABLET PO ×2 (12:38→18:58)
--- NOTE | 2023-04-09 18:53 | P.PNIM_ITS ---
Progress Note: A&P Assessment and Plan (1) COVID-19: Code(s): U07.1 - COVID-19 Status: Acute Assessment and Plan: Patient is gradually, continue current and monitor closely. (2) Acute exacerbation of chronic obstructive pulmonary disease (COPD): Code(s): J44.1 - Chronic obstructive pulmonary disease with (acute) exacerbation Status: Acute Assessment and Plan: Gradually improving continue current treatment. (3) Acute on chronic hypoxic respiratory failure: Code(s): J96.21 - Acute and chronic respiratory failure with hypoxia Status: Acute Assessment and Plan: Continue nebs and oxygen support. (4) Atrial fibrillation with RVR: Code(s): I48.91 - Unspecified atrial fibrillation Status: Acute Assessment and Plan: Heart rate is slightly better. Continue current treatment (5) Acute on chronic congestive heart failure with left ventricular diastolic dysfunction: Code(s): I50.33 - Acute on chronic diastolic (congestive) heart failure Status: Acute Assessment and Plan: Gradually improved, continue current treatment. Plan RAPID RESPONSE CODE: (1) COVID-19 Pneumonia (RESOLVED): ?Code(s): U07.1 - COVID-19 ?Status:?Acute ?Assessment and Plan: * Continue remdesivir and dexamethasone (03/16 initated), course completed * was on BiPAP * needing high flow oxygen slow improvement * Patient completed COVID-19 quarantine (2) Acute exacerbation of chronic obstructive pulmonary disease (COPD): ?Code(s): J44.1 - Chronic obstructive pulmonary disease with (acute) exacerbation ?Status:?Acute ?Assessment and Plan: * Continue steroids, bronchodilators * Mucomyst and dornase for her atelectasis and/or mucus plugging. Continue guaifenesin 1200 mg p.o. b.i.d. .? She is using a vibratory Cornet valve.? * Pulmonary switched patient from albuterol to levalbuterol (3) Acute on chronic hypoxic respiratory failure: ?Code(s): J96.21 - Acute and chronic respiratory failure with hypoxia ?Status:?Acute ?Assessment and Plan: * diuresing well * on furosemide 40 mg IV bid, dc on 03/28 * Monitor electrolytes * Strict input and output monitoring * Hold oral Lasix now because of soft blood pressure * Patient restarted on Lasix 40 mg IV daily during rapid response today * Strict input and output monitoring * Patient initiated on BiPAP with AVAPS setting during prep for bone scored on transfer to IMU ... Now being transitioned to high-flow nasal cannula * Patient is slowly being weaned of to oxygen 2-3 L via nasal cannula (4) Pneumonia: ?Code(s): J18.9 - Pneumonia, unspecified organism ?Status:?Acute ?Assessment and Plan: * Patient has couple episodes of pneumonia in mid and late February as discussed with patient's daughter Cristel * Started patient on IV Levaquin and IV vancomycin pharmacy to dose based on renal functions * Nasal MRSA swab was negative hence vancomycin was discontinued * Changed to iV Levaquin q.48h per Dr. Donato * Completed antibiotics treatment * Dr Liz suspects that she may have secondary Aspergillus? infection with COVID; oral voriconazole started on 03/28 ... Day # 12 today * Has to complete minimum 14 days of oral voriconazole ... May DC antifungal once cleared by Pulmonary after reviewing results of thoracentesis * Patient is currently off antimicrobial antibiotics and WBC count is trending down; now in normal range * Monitor patient very closely * Discussed with Pulmonary in detail (5) P
--- NOTE | 2023-04-09 18:53 | PM.IMPN ---
Progress Note: A&P Assessment and Plan (1) COVID-19: Code(s): U07.1 - COVID-19 Status: Acute Assessment and Plan: Patient is gradually, continue current and monitor closely. (2) Acute exacerbation of chronic obstructive pulmonary disease (COPD): Code(s): J44.1 - Chronic obstructive pulmonary disease with (acute) exacerbation Status: Acute Assessment and Plan: Gradually improving continue current treatment. (3) Acute on chronic hypoxic respiratory failure: Code(s): J96.21 - Acute and chronic respiratory failure with hypoxia Status: Acute Assessment and Plan: Continue nebs and oxygen support. (4) Atrial fibrillation with RVR: Code(s): I48.91 - Unspecified atrial fibrillation Status: Acute Assessment and Plan: Heart rate is slightly better. Continue current treatment (5) Acute on chronic congestive heart failure with left ventricular diastolic dysfunction: Code(s): I50.33 - Acute on chronic diastolic (congestive) heart failure Status: Acute Assessment and Plan: Gradually improved, continue current treatment. Plan RAPID RESPONSE CODE: (1) COVID-19 Pneumonia (RESOLVED): ?Code(s): U07.1 - COVID-19 ?Status:?Acute ?Assessment and Plan: Continue remdesivir and dexamethasone (03/16 initated), course completed was on BiPAP needing high flow oxygen slow improvement Patient completed COVID-19 quarantine (2) Acute exacerbation of chronic obstructive pulmonary disease (COPD): ?Code(s): J44.1 - Chronic obstructive pulmonary disease with (acute) exacerbation ?Status:?Acute ?Assessment and Plan: Continue steroids, bronchodilators Mucomyst and dornase for her atelectasis and/or mucus plugging. Continue guaifenesin 1200 mg p.o. b.i.d. .? She is using a vibratory Cornet valve.? Pulmonary switched patient from albuterol to levalbuterol (3) Acute on chronic hypoxic respiratory failure: ?Code(s): J96.21 - Acute and chronic respiratory failure with hypoxia ?Status:?Acute ?Assessment and Plan: diuresing well on furosemide 40 mg IV bid, dc on 03/28 Monitor electrolytes Strict input and output monitoring Hold oral Lasix now because of soft blood pressure Patient restarted on Lasix 40 mg IV daily during rapid response today Strict input and output monitoring Patient initiated on BiPAP with AVAPS setting during prep for bone scored on transfer to IMU ... Now being transitioned to high-flow nasal cannula Patient is slowly being weaned of to oxygen 2-3 L via nasal cannula (4) Pneumonia: ?Code(s): J18.9 - Pneumonia, unspecified organism ?Status:?Acute ?Assessment and Plan: Patient has couple episodes of pneumonia in mid and late February as discussed with patient's daughter Cristel Started patient on IV Levaquin and IV vancomycin pharmacy to dose based on renal functions Nasal MRSA swab was negative hence vancomycin was discontinued Changed to iV Levaquin q.48h per Dr. 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 Day # 12 today Has to complete minimum 14 days of oral voriconazole ... May DC antifungal once cleared by Pulmonary after reviewing results of thoracentesis Patient is currently off antimicrobial antibiotics and WBC count is trending down; now in normal range Monitor patient very closely Discussed with Pulmonary in detail (5) Paroxysmal atrial fibrillation: ?Code(s): I48.0 - Paroxysmal atrial fibrillation ?Status:?Chronic ?Assessment and Plan: hold diltiazem because blood pressure is soft Continue eliquis, amiodarone Pulmonary wants to hold off on diltiazem as AFib is controlled on amiodarone Cardiology consult given for balancing cardiac meds for AFib heart rate control versus hypotension (6) Coronary arteriosclerosis
[2023-04-09] MEDS: PRAVASTATIN SODIUM 20 MG TABLET 40 MG PO (20:26)
[2023-04-09] MEDS: ALPRAZolam (*CRX) 0.5 MG TABLET 1 MG PO (20:26)
[2023-04-09] MEDS: ACETAMINOPHEN 325 MG TABLET 650 MG PO (20:29)
[2023-04-09] MEDS: BUDESONIDE RESPULE NEB 0.5 MG/2 ML AMP INHALATION (20:32)
[2023-04-10] VITALS (16 sets, daily range): BP systolic 111–124; BP diastolic 53–63; PULSE 77–107; RESP 16–22; TEMP 36.4–36.8; O2SAT 93–100
[2023-04-10] MEDS: dilTIAZem HCL 60 MG TABLET PO ×3 (00:37→16:44)
[2023-04-10] MEDS: BUDESONIDE RESPULE NEB 0.5 MG/2 ML AMP INHALATION ×2 (07:50→20:15)
[2023-04-10] MEDS: LEVALBUTEROL NEB 1.25 MG/3 ML INHALATION ×4 (07:50→20:15)
[2023-04-10] MEDS: IPRATROPIUM BR 0.02% INH SOLN 0.5 MG/2.5 ML VIAL INHALATION ×4 (07:50→20:15)
[2023-04-10] MEDS: AMIODARONE HCL 100 MG TABLET PO (09:06)
[2023-04-10] MEDS: guaiFENesin 12 HR 600 MG TABCR 1200 MG PO ×2 (09:06→20:30)
[2023-04-10] MEDS: FUROSEMIDE INJ 40 MG/4 ML VIAL IV PUSH (09:06)
[2023-04-10] MEDS: SERTRALINE HCL 50 MG TABLET 200 MG PO (09:06)
[2023-04-10] MEDS: PANTOPRAZOLE 40 MG TABLET PO (09:06)
[2023-04-10] MEDS: COLESTIPOL HCL 1 GM TABLET 2 GM PO (09:06)
[2023-04-10] MEDS: VORICONAZOLE 200 MG TABLET PO ×2 (09:06→20:29)
[2023-04-10] MEDS: SENNA/DOCUSATE SODIUM TABLET 1 TAB PO (09:06)
[2023-04-10] MEDS: POLYSACCHARIDE IRON COMPLEX 150 MG CAPSULE PO (09:06)
[2023-04-10 09:16] LABS: Anion Gap 9 mmol/L (8-16); Blood Urea Nitrogen 15 mg/dL (7-17); Calcium 8.3 mg/dL (8.4-10.2); Carbon Dioxide 28 mmol/L (22-30); Chloride 103 mmol/L (98-107); Estimated CRCL calculation 38 ml/min; Estimated Glomerular Filt Rate 60; Glucose 132 mg/dL (65-110); Sodium 140 mmol/L (137-145)
--- NOTE | 2023-04-10 10:29 | PM.IMPN ---
Progress Note: A&P Assessment and Plan (1) COVID-19: Code(s): U07.1 - COVID-19 Status: Acute Assessment and Plan: Completed remdesivir and dexamethasone for 10 days Continues slow improvement (2) Acute exacerbation of chronic obstructive pulmonary disease (COPD): Code(s): J44.1 - Chronic obstructive pulmonary disease with (acute) exacerbation Status: Acute Assessment and Plan: Continue oxygen and bronchodilators (3) Acute on chronic hypoxic respiratory failure: Code(s): J96.21 - Acute and chronic respiratory failure with hypoxia Status: Acute Assessment and Plan: Oxygen at 2 liters/minute Continue nebs (4) Atrial fibrillation with RVR: Code(s): I48.91 - Unspecified atrial fibrillation Status: Acute Assessment and Plan: 04/10/2023 heart rate 90s in atrial fibrillation Continue Eliquis amiodarone and diltiazem (5) Acute on chronic congestive heart failure with left ventricular diastolic dysfunction: Code(s): I50.33 - Acute on chronic diastolic (congestive) heart failure Status: Acute Assessment and Plan: Continue furosemide 40 mg IV b.i.d. 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 Tolerating diet. At baseline oxygen of 2 liters/minute by nasal cannula. Tolerating physical therapy. Wonders when she is going home. Mild dyspnea on exertion with physical therapy. No chest pain. No GI or complaints. Bowels moved today. No abnormal bleeding. Review of Systems Review of Systems: All systems reviewed & are unremarkable except as noted in HPI and below Exam Narrative: HEENT: PERRL, sclerae nonicteric, pharyngeal mucosa pink and intact NECK: No JVD CHEST: SLIGHTLY COARSE BS WITH SCATTER RHONCHI HEART: NL S1/S2, regular, MURMUR NOT AUDIBLE ABDOMEN: BS+, soft, nontender, no mass, no bruits EXTREMITIES: No cyanosis, edema, or clubbing NEUROLOGIC: CN intact and symmetric to inspection. MUSCULOSKELETAL: Tone and strength symmetric. PSYCH: Alert. Oriented to person, place, and time. Objective Data Vital Signs Vital Signs: Vital Signs - 24 hr 04/09/23 10:50 04/09/23 11:06 04/09/23 12:00 Temperature Pulse Rate 90 108 H 101 H Respiratory Rate 18 18 Blood Pressure Pulse Oximetry Oxygen Delivery Oxygen Flow Rate 04/09/23 12:25 04/09/23 16:00 04/09/23 17:00 Temperature 97.9 F Pulse Rate 98 119 H 107 H Respiratory Rate 24 H 18 Blood Pressure 122/95 H Pulse Oximetry 95 Oxygen Delivery Oxygen Flow Rate 04/09/23 16:00 04/09/23 17:42 04/09/23 20:35 Temperature 98.4 F Pulse Rate 103 H 106 H 106 H Respiratory Rate 32 H 18 18 Blood Pressure 125/63 Pulse Oximetry 92 Oxygen Delivery Oxygen Flow Rate 04/09/23 20:00 04/09/23 20:00 04/09/23 20:00 Temperature 97.9 F Pulse Rate 113 H 90 113 H Respiratory Rate 22 H 22 H Blood Pressure 116/64 Pulse Oximetry 91 91 Oxygen Delivery Nasal Cannula Oxygen Flow Rate 2 04/10/23 00:00 04/10/23 00:29 04/10/23 04:00 Temperature 97.8 F Pulse Rate 101 H 91 85 Respiratory Rate 22 H Blood Pressure 124/55 L Pulse Oximetry 95 Oxygen Delivery Oxygen Flow Rate 04/10/23 07:50 04/10/23 07:50 04/10/23 08:00 Temperature Pulse Rate 89 89 93 Respiratory Rate 18 18 18 Blood Pressure Pulse Oximetry 99 Oxygen Delivery Nasal Cannula Oxygen Flow Rate 2 04/10/23 08:00 04/10/23 09:06 Temperature 98.0 F Pulse Rate 77 77 Respiratory Rate 20 Blood Pressure 111/53 L Pulse Oximetry 93 Oxygen Delivery Oxygen Flow Rate
--- NOTE | 2023-04-10 12:35 | PM.PNCARD ---
Progress Note: A&P Assessment and Plan (1) Atrial fibrillation with RVR: Code(s): I48.91 - Unspecified atrial fibrillation Status: Acute Assessment and Plan: Chronic atrial fibrillation managed with rate control and anticoagulation.? Diltiazem was stopped earlier in her hospitalization because of hypotension.? She has had some mild tachycardia over the past couple of days.? Blood pressure now is normal. Tolerating the Diltiazem and rates are pretty much controlled. Will stop the Q6H dosage of Diltiazem and start her long-acting Diltiazem 360mg daily starting 04/11. Continue Amiodarone Continue anticoagulation with Apixaban (2) CAD (coronary artery disease): Code(s): I25.10 - Atherosclerotic heart disease of [place] coronary artery without angina pectoris Status: Acute Assessment and Plan: Continue statin. (3) COVID-19: Code(s): U07.1 - COVID-19 Status: Acute Assessment and Plan: Completed 10 day course Remdesivir and steroids (4) Acute on chronic congestive heart failure with left ventricular diastolic dysfunction: Code(s): I50.33 - Acute on chronic diastolic (congestive) heart failure Status: Acute Assessment and Plan: Improved. On home requirement of oxygen. Will stop IV Lasix and start PO Lasix starting 04/11. Plan Cardiology will follow peripherally. Please call us if needed. Okay for discharge from my standpoint. Subjective Date/time seen: 04/10/23 12:35 Interval history: Reason for visit: Atrial fibrillation with RVR HPI: Maria Dolores Henry Is a 77-year-old female with a past medical history significant for coronary artery disease status post PCI to the RCA in 2020, atrial fibrillation, and chronic dyspnea on exertion.? ? She follows with a materials specialist Dr. Patel at [place].? She is admitted to [facility] with COVID-19 and pneumonia.? Cardiology is being asked to see her for atrial fibrillation.? Earlier in her hospitalization her diltiazem was discontinued because of hypotension.? Since that time she has been mildly tachycardic.? Patient denies feeling any palpitations or chest pain.? Her shortness of breath has significantly improved.? She is feeling well and does not have any complaints at the time of my visit with her. Date of service 04/09: Feeling okay this morning. CXR done this morning shows stable diffuse lung disease, consistent with pulmonary edema versus pneumonia, stable small pleural effusions. HR in the 100s to 110s. Blood pressure is stable. Date of service 04/10: Feeling much better today. She is hoping to get out of the hospital soon. Review of Systems Review of Systems: All systems reviewed & are unremarkable except as noted in HPI and below (HPI) Exam Const: General: no acute distress Other: Very hard of hearing HENMT: Mouth: Yes dry mucous membranes Eyes: General: appearance normal, both eyes and all related structures Sclera: sclerae normal Resp: Auscultation: clear to auscultation bilaterally and diminished lung sounds Cardio: Rate: regular rate Rhythm: abnormal rhythm irregularly irregular Neuro: Speech: normal speech Psych: Mental Status: mental status grossly normal Affect: normal affect Objective Data Vital Signs Vital Signs: Vital Signs - 24 hr 04/09/23 16:00 04/09/23 17:00 04/09/23 16:00 Temperature 36.9 C Pulse Rate 119 H 107 H 103 H Respiratory Rate 18 32 H Blood Pressure 125/63 Pulse Oximetry 92 Oxygen Delivery Oxygen Flow Rate 04/09/23 17:42 04/09/23 20:35 04/09/23 20:00 Temperature 36.6 C Pulse Rate 106 H 106 H 113 H Respiratory Rate 18 18 22 H Blood Pressure 116/64 Pulse Oximetry 91 Oxygen Delivery Oxygen Flow Rate 04/09/23 20:00 04/09/23 20:00 04/10/23 00:00 Temperature Pulse Rate 90 113 H 101 H Respiratory Rate 22 H Blood Pressure Pulse Oximetry 91 Oxygen Delivery Nasal Cannula Oxygen Flow Rate 2 04/10/23 00
--- NOTE | 2023-04-10 13:37 | PCPTNOTE ---
Patient declined PT at this time stating I am weak and tired. I know therapy will help with my weakness but right now I am just bushed. I can't. PT will continue to follow per plan of care.
--- NOTE | 2023-04-10 14:13 | PCOTNOTE ---
Attempted to see pt for Occupational Therapy treatment. Pt declined to participate on this date due to fatigue and wanting to sleep. Pt states that she was up several times during the night due to incontinence and did not sleep very well. Pt expresses that she wants to continue with therapy however, would like to rest right now. Will continue per poc duration/frequency at next date.
[2023-04-10] MEDS: POTASSIUM CHLORIDE 20 MEQ ER TABLET 40 MEQ PO (16:44)
[2023-04-10] MEDS: PRAVASTATIN SODIUM 20 MG TABLET 40 MG PO (20:30)
[2023-04-10] MEDS: ALPRAZolam (*CRX) 0.5 MG TABLET 1 MG PO (20:30)
[2023-04-11] VITALS (8 sets, daily range): BP systolic 115–123; BP diastolic 56–66; PULSE 80–104; RESP 18–24; TEMP 36.4–36.8; O2SAT 96–99
[2023-04-11 05:04] LABS: Hematocrit 32.1 % (37.0-47.0); Hemoglobin 9.3 g/dL (12.0-15.0); Mean Corpuscular Hemoglobin 26.9 pg (26-34); Mean Corpuscular Volume 92.8 fl (80-100); Mean Platelet Volume 9.4 fl (7.4-10.4); Platelet Count Result 221 k/mm3 (150-375); Red Blood Count 3.46 M/mm3 (4.2-5.4); Red Cell Distribution Width 22.8 % (11.5-14.5); White Blood Count 6.3 K/mm3 (4.5-10.0)
[2023-04-11 05:24] LABS: Alanine Aminotransferase 13 U/L (6-35); Albumin Level 3.2 g/dL (3.5-5.1); Alkaline Phosphatase 114 U/L (38-126); Anion Gap 9 mmol/L (8-16); Aspartate Amino Transferase 31 U/L (14-36); Bilirubin,Total 0.4 mg/dL (0.2-1.3); Blood Urea Nitrogen 16 mg/dL (7-17); Calcium 8.7 mg/dL (8.4-10.2); Carbon Dioxide 27 mmol/L (22-30); Chloride 104 mmol/L (98-107); Estimated CRCL calculation 43 ml/min; Estimated Glomerular Filt Rate > 60; Glucose 109 mg/dL (65-110); Potassium 3.2 mmol/L (3.4-5.0); Sodium 140 mmol/L (137-145)
[2023-04-11] MEDS: COLESTIPOL HCL 1 GM TABLET 2 GM PO (08:23)
[2023-04-11] MEDS: guaiFENesin 12 HR 600 MG TABCR 1200 MG PO ×2 (08:23→21:22)
[2023-04-11] MEDS: dilTIAZem HCL CD 180 MG CAP.24HR 360 MG PO (08:23)
[2023-04-11] MEDS: FUROSEMIDE 20 MG TABLET 60 MG PO (08:23)
[2023-04-11] MEDS: PANTOPRAZOLE 40 MG TABLET PO (08:24)
[2023-04-11] MEDS: POLYSACCHARIDE IRON COMPLEX 150 MG CAPSULE PO (08:24)
[2023-04-11] MEDS: SENNA/DOCUSATE SODIUM TABLET 1 TAB PO (08:24)
[2023-04-11] MEDS: AMIODARONE HCL 100 MG TABLET PO (08:24)
[2023-04-11] MEDS: SERTRALINE HCL 50 MG TABLET 200 MG PO (08:24)
[2023-04-11] MEDS: VORICONAZOLE 200 MG TABLET PO (08:24)
--- NOTE | 2023-04-11 10:01 | PM.PNPUL ---
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 We will know in a few days if this is Aspergillus or another mold, and we will see if she is any better treating with voriconazole. All the COVID treatments are finshed. 03/30: On voriconazole day 3. Awaiting ID of mold. 03/31 : CT scan of the chest yesterday improved; Mild pulmonary edema.; Mild atelectasis in the lungs with interval improvement.; Moderate emphysema. Small pleural effusions. Identification on the mold is not back yet. WBC is higher, 16.9. Clinically better. 04/04: Sputum with Aspergillus fumigatus species complex. CT scan on 03/30 without focal consolidations or cavitations. This may be colonization. Will continue voriconazole, day 7 today. 04/05: Continue voriconazole, day 8 today 04/06: voriconazole day 9. 04/07: Voriconazole day 10. To have thoracentesis tomorrow to rule out fungal empyema. 04/08: Voriconazole day 11. To have ultrasound-guided thoracentesis today. If no evidence of an empyema would discontinue voriconazole 04/11/23: She remains afebrile, minimal sputum production, no leukocytosis. Today is day 14 voriconazole and I will DC. If she remains stable overnight, from a pulmonary perspective patient will be ready for discharge on these pulmonary medications: Trelegy 100/62.09/02 at 1 puff q.day Rescue albuterol 2 puffs q.4 hours p.r.n. shortness of breath or wheezing Oxygen per rehab facilities protocol. Discussed with Dr. Nguyen, will follow with you. (2) COVID-19: Code(s): U07.1 - COVID-19 Status: Acute Assessment and Plan: Patient tested positive for COVID-19 on 03/16/2023 and started on remdesivir, dexamethasone on 03/16/23. Procalcitonin 0.1 on 03/16/2023. Remdesivir for 10 days Unless he should recover and tolerate room air with rest, ambulation and while sleeping. - Dexamethasone 6 mg IV for 10 days - Continuous pulse oximetry - Avoid any fluid overload. - Albuterol inhaler Q 4 for now, no wheezes. -negative RSV and influenza 03/19/2023: Plan: Patient is required BiPAP and high-flow nasal cannula and per and [facility] treatment guidelines will add baricitinib and I spoke to pharmacy and to be dosed per renal function per Pharmacy. Keep saturations are 90-94% with nasal cannula up to 15 L, if fails then Airvo high flow nasal cannula. 03/20/23: Patient tells me she continues to improve. She states she has 50% back to her baseline. She has a cough and continued shortness of breath with activity. She denies hemoptysis. Her white blood cell count is 5.0, she is afebrile. CRP decreased from 2.2 to a value of 0.6. Plan: Continue dexamethasone 6 mg IV and remdesivir 100 mg q.day, both day 5. Continue baricitinib, day 2. Avoid fluid overload and wean FiO2 to maintain saturation 90-94%. 03/21/23: Patient tells me she continues to slowly improve. States she is 75% back to her baseline except for her severe shortness of breath the and dyspnea on exertion. White blood cell count is 5.7, creatinine 0.9. Patient remains off BiPAP for 72 hours. When I enter the room the patient was on 45 L, 50% FiO2 with saturations 94%. Plan: Continue dexamethasone 6 mg IV and remdesivir 100 mg q.day, both day 6. Continue baricitinib, day 3. Avoid fluid overload and wean FiO2 to maintain saturation 90-94%. Later today will try to switch patient to high-flow nasal cannula at 15 L. 03/22/23: The patient remained on noninvasive ventilation with the AVAPS mode with the above settings and 70% overnight. The patient i
[2023-04-11 10:05] LABS: Iron 49 ug/dL (37-170)
[2023-04-11 10:16] LABS: Percent Iron Saturation 19 % (20-50)
--- NOTE | 2023-04-11 12:16 | PCRCNOTE ---
Window of time for administration has passed. See next scheduled administration.
--- NOTE | 2023-04-11 14:10 | PM.IMPN ---
Progress Note: A&P Assessment and Plan (1) COVID-19: Code(s): U07.1 - COVID-19 Status: Acute Assessment and Plan: Completed remdesivir and dexamethasone for 10 days Continues slow improvement (2) Acute exacerbation of chronic obstructive pulmonary disease (COPD): Code(s): J44.1 - Chronic obstructive pulmonary disease with (acute) exacerbation Status: Acute Assessment and Plan: Continue oxygen and bronchodilators (3) Acute on chronic hypoxic respiratory failure: Code(s): J96.21 - Acute and chronic respiratory failure with hypoxia Status: Acute Assessment and Plan: Oxygen at 2 liters/minute Continue nebs (4) Atrial fibrillation with RVR: Code(s): I48.91 - Unspecified atrial fibrillation Status: Acute Assessment and Plan: 04/10/2023 heart rate 90s in atrial fibrillation Continue Eliquis amiodarone and diltiazem (5) Acute on chronic congestive heart failure with left ventricular diastolic dysfunction: Code(s): I50.33 - Acute on chronic diastolic (congestive) heart failure Status: Acute Assessment and Plan: Continue furosemide 40 mg IV b.i.d. 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 Except as documented in the HPI/progress notes, all other systems were reviewed and are negative. All systems reviewed & are unremarkable except as noted in HPI and below Exam Narrative: HEENT: PERRL, sclerae nonicteric, pharyngeal mucosa pink and intact NECK: No JVD CHEST: SLIGHTLY COARSE BS WITH SCATTER RHONCHI HEART: NL S1/S2, regular, MURMUR NOT AUDIBLE ABDOMEN: BS+, soft, nontender, no mass, no bruits EXTREMITIES: No cyanosis, edema, or clubbing NEUROLOGIC: CN intact and symmetric to inspection. MUSCULOSKELETAL: Tone and strength symmetric. PSYCH: Alert. Oriented to person, place, and time. Const: General: comfortable and in distress Other: mild resp effort HENMT: Face/Nose/Sinus: Normal nares present Mouth: Yes dry mucous membranes Eyes: General: appearance normal, both eyes and all related structures Sclera: sclerae normal Pupils: Equal, round and reactive pupils present Resp: Other: mild tachypnea with mild to mod resp effort. faint expiratory wheeze in upper lung mccann. No crackles. Cardio: Rhythm: abnormal rhythm Other: irregular rhythm, mild tachycardia. No murmur. GI: Auscultation: normal bowel sounds Skin: General skin exam: normal color and no rashes or lesions noted Wounds: no wounds Neuro: Cranial nerves: Yes Equal, round and reactive pupils present Speech: normal speech Motor exam (neuro): 5/5 motor strength present throughout Sensory Exam: normal sensation Other: A/Ox4. daughter has some concern for patient's insight into limitations - none observed during exam/history taking. Psych: Mental Status: mental status grossly normal Affect: normal affect Objective Data Vital Signs Vital Signs: Vital Signs - 24 hr 04/10/23 15:00 04/10/23 15:08 04/10/23 16:00 Temperature Pulse Rate 85 86 96 Respiratory Rate 18 18 Blood Pressure Pulse Oximetry Oxygen Delivery Oxygen Flow Rate Fraction of Inspired Oxygen 04/10/23 16:00 04/10/23 20:16 04/10/23 20:16 Temperature 98.2 F Pulse Rate 104 H 87 87 Respiratory Rate 16 18 18 Blood Pressure 121/63 Pulse Oximetry 100 98 Oxygen Delivery Nasal Cannula Oxygen Flow Rate 2
[2023-04-11] MEDS: ALPRAZolam (*CRX) 0.5 MG TABLET 1 MG PO (21:21)
[2023-04-11] MEDS: PRAVASTATIN SODIUM 20 MG TABLET 40 MG PO (21:22)
[2023-04-11] MEDS: APIXABAN 5 MG TABLET PO (21:22)
[2023-04-12] VITALS (8 sets, daily range): BP systolic 111–130; BP diastolic 54–71; PULSE 80–110; RESP 22; TEMP 35.7–36.3; O2SAT 92–96
[2023-04-12 05:13] LABS: Basophils Percent Auto 0.3 % (0.2-1.2); Eosinophils Absolute Auto 0.1 K/mm3 (0-0.3); Eosinophils Percent Auto 1.4 % (0-4.4); Hematocrit 33.5 % (37.0-47.0); Hemoglobin 9.5 g/dL (12.0-15.0); Immature Granulocyte Absolute 0.03 K/mm3 (0.00-0.031); Immature Granulocyte Percent A 0.5 % (0-0.5); Lymphocytes Absolute Auto 1.29 K/mm3 (0.9-3.2); Lymphocytes Percent Auto 20.3 % (18.3-44.2); Mean Corpuscular HGB Conc 28.4 g/dl (32-36); Mean Corpuscular Hemoglobin 26.7 pg (26-34); Mean Corpuscular Volume 94.1 fl (80-100); Mean Platelet Volume 9.5 fl (7.4-10.4); Monocytes Absolute Auto 0.4 K/mm3 (0.1-0.6); Monocytes Percent Auto 5.7 % (2.6-8.5); Neutrophils Absolute Auto 4.6 K/mm3 (1.3-6.7); Neutrophils Percent Auto 71.8 % (45.5-73.1); Platelet Count Result 252 k/mm3 (150-375); Red Blood Count 3.56 M/mm3 (4.2-5.4); Red Cell Distribution Width 22.5 % (11.5-14.5); White Blood Count 6.4 K/mm3 (4.5-10.0)
[2023-04-12 05:26] LABS: Alanine Aminotransferase 15 U/L (6-35); Albumin Level 3.3 g/dL (3.5-5.1); Alkaline Phosphatase 117 U/L (38-126); Anion Gap 5 mmol/L (8-16); Aspartate Amino Transferase 33 U/L (14-36); Bilirubin,Total 0.4 mg/dL (0.2-1.3); Blood Urea Nitrogen 12 mg/dL (7-17); Calcium 8.7 mg/dL (8.4-10.2); Carbon Dioxide 29 mmol/L (22-30); Chloride 106 mmol/L (98-107); Estimated CRCL calculation 43 ml/min; Estimated Glomerular Filt Rate > 60; Glucose 108 mg/dL (65-110); Potassium 3.3 mmol/L (3.4-5.0); Sodium 140 mmol/L (137-145)
[2023-04-12 07:21] LABS: Platelet Estimate Adequate (Adequate)
[2023-04-12 07:22] LABS: Anisocytosis 2+ (NORMAL); Hypochromasia 2+ (NORMAL); Schistocytes None Seen (NORMAL); Target Cells 1+ (NORMAL)
[2023-04-12] MEDS: FUROSEMIDE 20 MG TABLET 60 MG PO (08:31)
[2023-04-12] MEDS: POLYSACCHARIDE IRON COMPLEX 150 MG CAPSULE PO (08:31)
[2023-04-12] MEDS: SERTRALINE HCL 50 MG TABLET 200 MG PO (08:31)
[2023-04-12] MEDS: PANTOPRAZOLE 40 MG TABLET PO (08:32)
[2023-04-12] MEDS: AMIODARONE HCL 100 MG TABLET PO (08:32)
[2023-04-12] MEDS: dilTIAZem HCL CD 180 MG CAP.24HR 360 MG PO (08:32)
[2023-04-12] MEDS: APIXABAN 5 MG TABLET PO (08:32)
[2023-04-12] MEDS: COLESTIPOL HCL 1 GM TABLET 2 GM PO (08:32)
[2023-04-12] MEDS: guaiFENesin 12 HR 600 MG TABCR 1200 MG PO (08:32)
[2023-04-12] MEDS: SENNA/DOCUSATE SODIUM TABLET 1 TAB PO (08:32)
--- NOTE | 2023-04-12 08:38 | PM.PNPUL ---
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 We will know in a few days if this is Aspergillus or another mold, and we will see if she is any better treating with voriconazole. All the COVID treatments are finshed. 03/30: On voriconazole day 3. Awaiting ID of mold. 03/31 : CT scan of the chest yesterday improved; Mild pulmonary edema.; Mild atelectasis in the lungs with interval improvement.; Moderate emphysema. Small pleural effusions. Identification on the mold is not back yet. WBC is higher, 16.9. Clinically better. 04/04: Sputum with Aspergillus fumigatus species complex. CT scan on 03/30 without focal consolidations or cavitations. This may be colonization. Will continue voriconazole, day 7 today. 04/05: Continue voriconazole, day 8 today 04/06: voriconazole day 9. 04/07: Voriconazole day 10. To have thoracentesis tomorrow to rule out fungal empyema. 04/08: Voriconazole day 11. To have ultrasound-guided thoracentesis today. If no evidence of an empyema would discontinue voriconazole 04/11/23: She remains afebrile, minimal sputum production, no leukocytosis. Today is day 14 voriconazole and I will DC. 04/12/23: Remains afebrile. Plan: I will check a two view x-ray today to serve as a new baseline. From a pulmonary perspective patient will be ready for discharge on these pulmonary medications: Trelegy 100/62.5/25 at 1 puff q.day Rescue albuterol 2 puffs q.4 hours p.r.n. shortness of breath or wheezing Guaifenesin 600 mg PO Q 12 hours PRN cough and mucous production Oxygen per rehab facilities protocol. Currently she is on 2 L nasal cannula at rest with saturations 92%. Follow-up in the Pulmonary Clinic in 3-4 weeks. I gave her our business card and informed our stain sprayer. She will need follow-up imaging to assess her infiltrates, PFTs and home O2 assessment or 6 minute walk. Discussed with Christy Lobo regarding follow up, discussed with Dr. Nguyen, will sign off, call with questions. (2) COVID-19: Code(s): U07.1 - COVID-19 Status: Acute Assessment and Plan: Patient tested positive for COVID-19 on 03/16/2023 and started on remdesivir, dexamethasone on 03/16/23. Procalcitonin 0.1 on 03/16/2023. Remdesivir for 10 days Unless he should recover and tolerate room air with rest, ambulation and while sleeping. - Dexamethasone 6 mg IV for 10 days - Continuous pulse oximetry - Avoid any fluid overload. - Albuterol inhaler Q 4 for now, no wheezes. -negative RSV and influenza 03/19/2023: Plan: Patient is required BiPAP and high-flow nasal cannula and per and [facility] treatment guidelines will add baricitinib and I spoke to pharmacy and to be dosed per renal function per Pharmacy. Keep saturations are 90-94% with nasal cannula up to 15 L, if fails then Airvo high flow nasal cannula. 03/20/23: Patient tells me she continues to improve. She states she has 50% back to her baseline. She has a cough and continued shortness of breath with activity. She denies hemoptysis. Her white blood cell count is 5.0, she is afebrile. CRP decreased from 2.2 to a value of 0.6. Plan: Continue dexamethasone 6 mg IV and remdesivir 100 mg q.day, both day 5. Continue baricitinib, day 2. Avoid fluid overload and wean FiO2 to maintain saturation 90-94%. 03/21/23: Patient tells me she continues to slowly improve. States she is 75% back to her baseline except for her severe shortness of breath the and dyspnea on exertion. White blood cell count is 5.7, creatinine 0.9. Patient remains off BiPAP for 72 h
[2023-04-12 09:17] LABS: NT Pro B Type Natriuretic Pept 1160 pg/mL (19.9-100)
[2023-04-12 10:06] LABS: Amylase, Pleural Fluid 15 U/L
--- NOTE | 2023-04-12 12:31 | PCNFU ---
Nutrition Follow-Up Complete: Suboptimal po intake related to appetite as evidenced by charted intake Goal:PO intake greater than 50% of meals Pt current nutrition is Heart healthy, Ensure compact BID. Nutrition recommendation: Continue with current plan of care. Last recorded weight is 67.4 kg. Bowel Motility: +BM 04/08 Labs Reviewed: Hgb:9.5, HCT:33.5, Alb:3.3, K:3.3 Meds Noted:Eliquis, lasix, zofran, protonix, miralax Skin: no skin issues noted Additional Notes: Pt continues on a heart healthy diet, intake good at 75-100% of meals, encourage good po intake. Monitor intake, wt, labs. Follow up in 7 days.
--- NOTE | 2023-04-12 16:10 | PM.DS ---
DS: Admitting Diagnosis Discharge Date 04/12/23 Admitting Diagnosis Covid 19 DS: Discharge Diagnosis Discharge Diagnosis (1) COVID-19: Code(s): U07.1 - COVID-19 Status: Acute DS: Summary Hospital Course Hospital Course: 77 y/o F presents here with cough and SOB with PMH of pA-Fib (on anticoagulation), COPD, CKD (3), recent trochanteric fx, HTN, and HLD. S patient reports that for the last 3 days she has been experiencing a severe dry cough, headache affecting top of head, and SOB.? Patient reports that the shortness of breath has worsened to the point of limiting her act to VD, already limited due to recent fracture.? Does note that rest alleviates the shortness of breath.? Associated anxiety with the increase in shortness of breath.? Denies fever or body aches.? Reportedly tested for COVID at current facility, [facility], and was negative.? Viral PCR done today showed COVID+.? CXR did not demonstrate pneumonia, did show mild pulmonary edema.? EKG shows recurrent AFib. Lab work significant for anemia - hgb of 7.8 and BNP 1,210. No prior history of anemia according to patient and her daughter. Patient completed Remdesivir nd steroid for Covid Completed Voriconazole, however pulm does not think this is real fungal infection. f/u with PCP in 3-5 days, f/u Pulm as instructed Discharged to SNF. Assessment and Plan (1) COVID-19: ?Code(s): U07.1 - COVID-19 ?Status:?Acute ?Assessment and Plan: Completed remdesivir and dexamethasone for 10 days Continues slow improvement(2) Acute exacerbation of chronic obstructive pulmonary disease (COPD): ?Code(s): J44.1 - Chronic obstructive pulmonary disease with (acute) exacerbation ?Status:?Acute ?Assessment and Plan: Continue oxygen and bronchodilators(3) Acute on chronic hypoxic respiratory failure: ?Code(s): J96.21 - Acute and chronic respiratory failure with hypoxia ?Status:?Acute ?Assessment and Plan: Oxygen at 2 liters/minute Continue nebs(4) Atrial fibrillation with RVR: ?Code(s): I48.91 - Unspecified atrial fibrillation ?Status:?Acute ?Assessment and Plan: 04/10/2023 heart rate 90s in atrial fibrillation Continue Eliquis amiodarone and diltiazem(5) Acute on chronic congestive heart failure with left ventricular diastolic dysfunction: ?Code(s): I50.33 - Acute on chronic diastolic (congestive) heart failure ?Status:?Acute ?Assessment and Plan: Continue furosemide 40 mg IV b.i.d. per cardiology 04/10/2023 potassium supplementation 40 mEq twice for potassium 3.0 Follow-up lab(6) Aspergillus bronchitis: ?Code(s): B44.1 - Other pulmonary aspergillosis; J99 - Respiratory disorders in diseases classified elsewhere ?Status:?Acute ?Assessment and Plan: Continue voriconazole, 04/10/2023 day 14 Time Spent with Patient Time attestation: Total time spent providing and/or coordinating discharge services: DS: Data Data Completed and Pending Completed studies during hospitalization: Pending at discharge 04/05/23 06:00 Cytology [PTH] Routine Labs on day of discharge: Labs from last 24 hours 04/12/23 04/12/23 04/12/23 04:49 04:48 04:40 WBC 6.4 RBC 3.56 L Hgb 9.5 L Hct 33.5 L MCV 94.1 MCH 26.7 MCHC 28.4 L RDW 22.5 H Plt Count 252 MPV 9.5 Immature Gran % (Auto) 0.5 Neut % (Auto) 71.8 Lymph % (Auto) 20.3 Branch % (Auto) 5.7 Eos % (Auto) 1.4 Baso % (Auto) 0.3 Lymph # (Auto) 1.29 Branch # (Auto) 0.4 Eos # (Auto) 0.1 Baso # (Auto) 0.0 Abs Immat Gran (auto) 0.03 Absolute Neuts (auto) 4.6 Absolute Nucleated RBC 0.0 Nucleated RBC % 0.0 Platelet Estimate Adequate Hypochromasia 2+ Anisocytosis 2+ Target Cells 1+ Schistocytes None seen Sodium 140 Potassium 3.3 L Chloride 106 Carbon Dioxide 29 Anion Gap 5 L BUN 12 Creatinine 0.80 Estim Creat Armando
[2023-04-12 23:29] LABS: Albumin Pleural Fluid 1.5 g/dL
[2023-04-13 03:33] LABS: Glucose Pleural Fluid 103 mg/dL; LDH Pleural Fluid 527 U/L; Total Protein Pleural Fluid <3.0 g/dL
[2023-04-14 13:19] LABS: Reference Lab Test Result 3.0 mcg/mL
== END 2023-04-12 18:25 | DRG 177 ==
LOC: ANHED 13:30 → ANHIMU 14:31 → ANH2MED 04-01 15:42 → ANHIMU 04-06 06:44 → ANH2MED 04-13 09:43 → ANHIMU 04-13 09:43
PROVIDERS: Family Medicine; Hospitalist; Internal Medicine; Internal Medicine Critical Care Medicine; Internal Medicine Pulmonary Disease; Student in an Organized Health Care Education/Training Program; Admitting Provider Internal Medicine; Emergency Provider Physician Assistant; PCP Physician Assistant; Visit Provider Internal Medicine
DX: U07.1 COVID-19 (principal); I50.33 Acute on chronic diastolic (congestive) heart failure; J96.21 Acute and chronic respiratory failure with hypoxia; B44.1 Other pulmonary aspergillosis; J90 Pleural effusion, not elsewhere classified; J44.1 Chronic obstructive pulmonary disease with (acute) exacerbation; I13.0 Hypertensive heart and chronic kidney disease with heart failure and stage 1 through stage 4 chronic kidney disease, or unspecified chronic kidney disease; J98.11 Atelectasis; J99 Respiratory disorders in diseases classified elsewhere; N18.30 Chronic kidney disease, stage 3 unspecified; T17.990A Other foreign object in respiratory tract, part unspecified in causing asphyxiation, initial encounter; E78.5 Hyperlipidemia, unspecified; I48.0 Paroxysmal atrial fibrillation; I25.10 Atherosclerotic heart disease of native coronary artery without angina pectoris; D50.9 Iron deficiency anemia, unspecified; F41.9 Anxiety disorder, unspecified; Z79.01 Long term (current) use of anticoagulants; Z90.49 Acquired absence of other specified parts of digestive tract; Z95.5 Presence of coronary angioplasty implant and graft; Z90.710 Acquired absence of both cervix and uterus; Z87.891 Personal history of nicotine dependence
CPT/HCPCS: 32555; 36415; 36600; 71045; 71046; 71250; 71275; 80048; 80053; 80076; 80285; 81001; 82042; 82150; 82248; 82375; 82607; 82728; 82746; 82805; 82945; 82948; 83050; 83540; 83550; 83605; 83615; 83735; 83880; 83986; 84100; 84145; 84155; 84157; 84484; 85025; 85027; 85610; 85730; 86140; 87015; 87070; 87075; 87102; 87107; 87116; 87205; 87206; 87637; 87641; 88108; 88184; 88305; 89051; 93005; 93306; 94002; 94003; 94640; 94660; 94667; 94668; 96374; 96375; 96376; 97110; 97161; 97165; 97166; 97530; 97535; 99285; A9270; G0378; J0248; J1100; J1756; J1940; J1956; J3370; J3480; J7050; Q9967

== ENCOUNTER 2023-05-07 09:15 | Outpatient (CLI) | payer MEDICARE, BC, SELFPAY ==
--- NOTE | ~2023-05-07 | XR_ITS ---
XR chest 2V 05/07/2023 09:31 Indication: Post Covid effusions Procedure: 2 view chest Comparison: Comparison to multiple prior studies sequentially, with oldest reviewed study dated 03/12. Findings: Borderline heart size. Mild interstitial edema. Small pleural effusions. No pneumothorax. N o acute osseous abnormality. The lungs are hyperinflated which is consistent with, but not diagnostic of chronic obstructive pulmonary disease. Impression: 1: Cardiomegaly with interstitial edema 2: Small pleural effusions. Reviewed, dictated and finalized at location A. 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
== END 2023-05-07 09:16 | disposition home or self-care (01) ==
PROVIDERS: PCP Internal Medicine; Visit Provider Internal Medicine Pulmonary Disease
DX: U07.1 COVID-19 (principal); J90 Pleural effusion, not elsewhere classified; I51.7 Cardiomegaly
CPT/HCPCS: 71046

== ENCOUNTER 2023-05-13 12:09 | Outpatient (CLI) | payer MEDICARE, BC, SELFPAY ==
[2023-05-13 12:40] VITALS: PULSE 88; PULSE 89; O2SAT 86; O2SAT 88
[2023-05-13 12:45] VITALS: O2SAT 90
[2023-05-13 12:50] VITALS: PULSE 120; O2SAT 88
[2023-05-13 12:55] VITALS: PULSE 124; O2SAT 90
[2023-05-13 13:05] VITALS: PULSE 88; O2SAT 90
--- NOTE | 2023-05-13 13:32 | HOMEO2EVAL ---
Evaluation was performed at [facility] Home Oxygen Evaluation RC: Home Oxygen (O2) Evaluation Start: 05/13/23 13:20 Freq: Status: Active Protocol: RPE Activity Type Activity Date Activity User E-sign Co-sign Detail Recorded Client Recorded Date Recorded By Document 05/13/23 12:40 ADILSON [email or web address] 05/13/23 13:32 ADILSON Document 05/13/23 12:40 ADILSON [email or web address] 05/13/23 13:32 ADILSON Document 05/13/23 12:45 ADILSON [email or web address] 05/13/23 13:32 ADILSON Document 05/13/23 12:50 ADILSON [email or web address] 05/13/23 13:32 ADILSON Document 05/13/23 12:55 ADILSON [email or web address] 05/13/23 13:32 ADILSON Document 05/13/23 13:05 ADILSON [email or web address] 05/13/23 13:32 ADILSON 05/13/23 05/13/23 05/13/23 12:40 12:40 12:45 Home O2 Evaluation [Oxygen] -Test Phase Resting Resting Resting -Oxygen Delivery Room Air Nasal Cannula Nasal Cannula -Oxygen Flow Rate (L/min) 1 2 [Pulse Oximetry] -Pulse Oximetry (90-100 %) 86 L 88 L 90 [Pulse Rate] -Pulse Rate (60-100 beats/min) 89 88 [Evaluation] -Activity Tolerance [Exercise] -Ambulation Distance (feet) -Ambulation Distance (meters) [Charges] -Evaluation Charges O2 Evaluation by Pulmonary 05/13/23 05/13/23 05/13/23 12:50 12:55 13:05 Home O2 Evaluation [Oxygen] -Test Phase Exercise Exercise Resting -Oxygen Delivery Nasal Cannula Nasal Cannula Nasal Cannula -Oxygen Flow Rate (L/min) 2 3 2 [Pulse Oximetry] -Pulse Oximetry (90-100 %) 88 L 90 90 [Pulse Rate] -Pulse Rate (60-100 beats/min) 120 H 124 H 88 [Evaluation] -Activity Tolerance Good [Exercise] -Ambulation Distance (feet) 200 -Ambulation Distance (meters) 60.95 [Charges] -Evaluation Charges
== END 2023-05-13 12:10 | disposition home or self-care (01) ==
LOC: ANHPFT 12:10
PROVIDERS: PCP Internal Medicine; Visit Provider Internal Medicine Pulmonary Disease
DX: U09.9 Post COVID-19 condition, unspecified (principal); Z99.81 Dependence on supplemental oxygen
CPT/HCPCS: 94618

== ENCOUNTER 2023-05-23 06:24 | Emergency (ER) | payer MEDICARE, BC, SELFPAY ==
[2023-05-23] VITALS (10 sets, daily range): BP systolic 112–147; BP diastolic 63–78; PULSE 79–89; RESP 17–26; TEMP 36.5–36.6; O2SAT 93–99
--- NOTE | ~2023-05-23 | XR_ITS ---
Right Knee Technique: AP, lateral, and oblique views were obtained. Clinical History: Pain Findings: No fracture or dislocation is seen. Osseous alignment is anatomic. Joint spaces are preserv ed without degenerative or erosive change. Chondrocalcinosis of the menisci noted. No joint effusion is seen. Impression: No fracture or dislocation. Chondrocalcinosis of the menisci. Reviewed, dictated and finalized at location . TIC MAKER Impression: No fracture or dislocation. Chondrocalcinosis of the menisci.
--- NOTE | 2023-05-23 08:48 | ED.FALL ---
HPI - Fall General Chief Complaint: Fall Stated Complaint: slide out of bed, knee pain Time Seen by Provider: 05/23/23 07:00 History of Present Illness HPI Narrative: Patient is a 77-year-old female who presents the ER with right-sided knee pain. She slid out of her bed and struck her knee on the ground. She did not strike her head or lose consciousness. She denies any pain at this time. She has no bruising to the affected area. Due to her pain she did not get up to walk after the fall. Related Data Home Medications Medication Instructions Recorded Confirmed amiodarone 100 mg tablet (Pacerone) 100 mg PO DAILY 08/07/20 05/23/23 apixaban 5 mg tablet (Eliquis) 5 mg PO BID 08/07/20 05/23/23 furosemide 40 mg tablet 60 mg PO DAILY 08/07/20 05/23/23 pravastatin 40 mg tablet 40 mg PO HS 08/07/20 05/23/23 clopidogrel 75 mg tablet 75 mg PO DAILY 02/03/23 05/23/23 diltiazem HCl 360 mg 360 mg PO DAILY 02/03/23 05/23/23 capsule,extended release 24 hr colestipol 1 gram tablet (Colestid) 2 g PO DAILY 02/05/23 05/23/23 Allergies Allergy/AdvReac Type Severity Reaction Status Date / Time No Known Allergies Allergy Verified 05/23/23 07:47 Review of Systems Constitutional: Constitutional: Reports no additional constitutional complaints Musculoskeletal: Musculoskeletal: Denies myalgias, Reports arthralgias, Denies joint swelling and Denies muscle cramps Integumentary/Breasts: Skin/Breast: Reports system reviewed and no additional complaints, except as docu Neurologic: Reports system reviewed and no additional complaints, except as documented [facility] Past Medical History Medical History Anxiety Chronic anticoagulation Chronic kidney disease, stage 3 Compression fracture of body of thoracic vertebra Hyperlipidemia Hypertension Paroxysmal atrial fibrillation Trochanteric fracture Surgical History Surgical History History of appendectomy History of cardiac catheterization History of cholecystectomy History of coronary artery stent placement History of hysterectomy History of partial colectomy History of tonsillectomy Family History Family History Father Family history of emphysema Patient's father is Mother Patient's mother is Family history of chronic obstructive pulmonary disease Social History Social History Smoking packs per day: 1.5 Smoking cigarettes per day: 30.0 Years smoked: 55 Smoking pack-years: 82.50 Smoking status: Former smoker Tobacco type: cigarettes Second hand tobacco smoke exposure: No Smoking end date: 10/06/22 Additional smoking assessment comments: pt quit smoking September 2022, 82.50 packs years according to PAS Alcohol intake: never Drinks per week: 0 Substance use: never Substance use type: does not use Do You Feel Safe in your Home?: Yes Lack of Transportation: No Lack of Food: Never True Current Housing: I Have Housing Concerned About Future Housing: No Difficulty Paying Gas/Electric Bills: No Difficulty Paying for Meds: No Currently Unemployed: No Education: Bachelor's Degree Difficulty w/ Childcare or Family Care: Decline to Answer Spiritual care concerns: No Exam Narrative: GENERAL: Well-appearing, well-nourished, and in no acute distress. HEAD: Normocephalic, atraumatic. ENT: Mucous membranes moist. CHEST: Clear to auscultation. No respiratory distress. HEART: Regular rate and rhythm. Normal peripheral pulses. EXTREMITIES: Normal range of motion. 1+ edema. SKIN: Warm, dry, no rash. NEURO: Alert and oriented x3. PSYCH: Normal mood and affect. Course Course Emergency Course: Imaging unremarkable. Patient informed of results. Patient is oriented x3, has no head trauma, not f
== END 2023-05-23 09:48 | disposition home or self-care (01) ==
PROVIDERS: Emergency Provider Emergency Medicine; PCP Internal Medicine
DX: S80.01XA Contusion of right knee, initial encounter (principal); I12.9 Hypertensive chronic kidney disease with stage 1 through stage 4 chronic kidney disease, or unspecified chronic kidney disease; N18.30 Chronic kidney disease, stage 3 unspecified; E78.5 Hyperlipidemia, unspecified; I48.0 Paroxysmal atrial fibrillation; F41.9 Anxiety disorder, unspecified; Z95.5 Presence of coronary angioplasty implant and graft; Z87.891 Personal history of nicotine dependence; Z90.49 Acquired absence of other specified parts of digestive tract; Z90.710 Acquired absence of both cervix and uterus; Z79.01 Long term (current) use of anticoagulants; M11.261 Other chondrocalcinosis, right knee; W06.XXXA Fall from bed, initial encounter
CPT/HCPCS: 73562; 99283

== ENCOUNTER 2023-06-14 13:34 | Outpatient (CLI) | payer MEDICARE, BC, SELFPAY ==
--- NOTE | ~2023-06-14 | MR_ITS ---
EXAMINATION: MR knee RT wo con DATE: 06/14/2023 14:41 INDICATION: Right knee pain TECHNIQUE: Magnetic resonance imaging (MRI) of the right knee was performed without intravenous contr ast. Sequences included coronal PD-weighted FSE, coronal PD-weighted FS FSE, sagittal T2-weighted FS E, sagittal PD-weighted FS FSE and axial PD weighted fat saturated FSE. COMPARISON: Radiographs dated 05/23/2023 FINDINGS: Medial compartment: There is prominent increased intrasubstance signal in the body and posterior horn of the medial menis cus at least some which is likely related to chondrocalcinosis seen on the prior radiographs. Increas ed signal does however extend to contact the inferior articular surface near the free edge of the bod y and posterior horn consistent with a longitudinal horizontal meniscal tear. There is partial thickn ess cartilage loss with minimal chondral surface regularity along the anterior to central weightbeari ng medial femoral condyle. Cartilage along the medial tibial plateau appears relatively preserved. Lateral compartment: As at the medial compartment there is increased signal in the posterior horn of the lateral meniscus likely related to chondrocalcinosis. The increased signal does extend to contact the inferior articul ar surface in the posterior horn also consistent with a longitudinal horizontal tear. Partial-thickne ss cartilage loss with smooth chondral surface along the anterior to central weightbearing lateral fe moral condyle an anterior aspect of the lateral tibial plateau. Patellofemoral compartment: Deep chondral ulceration with mild subarticular edema-like signal change at the patellar apical ridge and medial facet. Less severe partial thickness cartilage loss at the lateral patellar facet. Trochl ear cartilage appears relatively preserved. Ligaments and tendons: Anterior and posterior cruciate ligaments are normal. The medial collateral ligament and fibular lindsay ateral ligament complex are normal. The extensor mechanism is normal. The visualized medial and later al hamstring tendons as well as the iliotibial band are normal. Fluid: Minimal right knee joint effusion at the suprapatellar pouch. No loose osteochondral bodies identifie d. Osseous/other: Marrow edema in the proximal tibia surrounding a low signal intensity nondisplaced fracture line whic h extends an inverted Y shaped configuration both inferomedially and inferolaterally from a sagittall y oriented fracture plane extending anteroposteriorly along the intercondylar eminence. The fracture appears to involve the cortex along the intercondylar eminence but does not definitively complete dis tally to involve the medial and lateral metaphyseal cortices. No pathologic marrow replacing process. IMPRESSION: 1. Nondisplaced intra-articular fracture of the proximal tibia. 2. Chondrocalcinosis and likely longitudinal horizontal tears at the posterior horns of the medial an d lateral menisci. 3. 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 Reviewed, dictated and finalized at location A. 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 Nondisplaced intra-articular fracture of the proximal tibia. 2. Chondrocalcinosis and likely longitudinal horizontal tears at the posterior horns of the medial and lateral menisci. 3. 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
== END 2023-06-14 13:35 | disposition home or self-care (01) ==
PROVIDERS: PCP Internal Medicine; Visit Provider Internal Medicine
DX: M17.11 Unilateral primary osteoarthritis, right knee (principal); S82.291D Other fracture of shaft of right tibia, subsequent encounter for closed fracture with routine healing; X58.XXXD Exposure to other specified factors, subsequent encounter
CPT/HCPCS: 73721

== ENCOUNTER 2023-09-22 15:30 | Outpatient (CLI) | payer MEDICARE, BC, SELFPAY ==
--- NOTE | ~2023-09-22 | MR_ITS ---
MRI of the brain Clinical History: Dementia Technique: Axial and sagittal T1-weighted images were acquired. These were followed by axial T2-weigh kimberly, diffusion weighted, gradient, and FLAIR images. Findings: There is no acute infarct, intracranial hemorrhage or mass lesion. There is severe chronic white matter change in the periventricular white matter bilaterally. Ventricles and subarachnoid spaces are mildly dilated. Orbits are unremarkable. Paranasal sinuses are clear. Minimal bilateral mastoid effusions are present. Major intracranial flow voids appear intact. Sagittal midline structures are intact. IMPRESSION: No acute intracranial abnormality. Severe chronic microvascular ischemic change and mild to moderate generalized atrophy. Reviewed, dictated and finalized at location . IMPRESSION: No acute intracranial abnormality. Severe chronic microvascular ischemic change and mild to moderate generalized a trophy.
== END 2023-09-22 15:31 | disposition home or self-care (01) ==
LOC: ANHIMG 15:31
PROVIDERS: PCP Internal Medicine; Visit Provider Internal Medicine
DX: F03.90 Unspecified dementia, unspecified severity, without behavioral disturbance, psychotic disturbance, mood disturbance, and anxiety (principal); I67.82 Cerebral ischemia; G31.9 Degenerative disease of nervous system, unspecified
CPT/HCPCS: 70551

== ENCOUNTER 2023-09-28 10:49 | Outpatient (CLI) | payer MEDICARE, BC, SELFPAY ==
[2023-09-30 17:24] LABS: Vitamin B6 3.6 ng/mL (2.1-21.7)
[2023-10-09 13:34] LABS: Arsenic,Urine Results Below (<36); Cadmium,Random Urine 1.9 (<1.3); Cobalt,Random Urine 2.9 mcg/L (<2.9); Creatinine,Random Urine 59 mg/dL (20-275); Lead,Urine Results Below (<10); Mercury, Random Urine Results Below (<5); Thallium, Urine 0.3 (<0.5)
== END 2023-09-28 10:50 | disposition home or self-care (01) ==
PROVIDERS: PCP Internal Medicine; Visit Provider Internal Medicine
DX: F03.90 Unspecified dementia, unspecified severity, without behavioral disturbance, psychotic disturbance, mood disturbance, and anxiety (principal)
CPT/HCPCS: 36415; 84207

== ENCOUNTER 2023-11-01 16:07 | Emergency (ER) | payer MEDICARE, BC, SELFPAY ==
[2023-11-01 16:20] VITALS: BP 124/70; PULSE 92; RESP 16; TEMP 37.3; O2SAT 95
[2023-11-01 16:22] VITALS: BP 124/70; PULSE 92; RESP 16; TEMP 37.3; O2SAT 95
--- NOTE | 2023-11-01 16:24 | ED.SKABFB ---
HPI - Skin/Abscess/Foreign Bdy General Chief complaint: Skin/Abscess/Foreign Body Stated complaint: INSECT BITE Time Seen by Provider: 11/01/23 16:24 Source: patient, RN notes reviewed and old records reviewed Mode of arrival: ambulatory Limitations: no limitations History of Present Illness HPI narrative: 78-year-old female to [facility] for complaint lesion to left forearm just distal to the elbow. Patient's daughter accompanies patient and states that she 1st noticed the lesion yesterday. Patient states that she lives in an assisted living facility and that nursing staff noticed the wound draining last night. patient reports that the cleaned the wound, marked the wound and dressed it with a Band-Aid. Patient states she believes it is an insect bite but isn't certain. Patient denies injury. Patient denies numbness, tingling, fever, nausea, dizziness. Patient calm and cooperative in exam room. Respirations even and nonlabored. Patient in no acute distress. Related Data Home Medications Medication Instructions Recorded Confirmed apixaban 5 mg tablet (Eliquis) 5 mg PO BID 08/07/20 11/01/23 furosemide 40 mg tablet 60 mg PO DAILY 08/07/20 11/01/23 pravastatin 40 mg tablet 40 mg PO HS 08/07/20 11/01/23 clopidogrel 75 mg tablet 75 mg PO DAILY 02/03/23 11/01/23 diltiazem HCl 240 mg 240 mg PO BID 10/05/23 11/01/23 capsule,extended release 24 hr Allergies Allergy/AdvReac Type Severity Reaction Status Date / Time steroids Allergy Mild Confusion Uncoded 11/01/23 16:20 Review of Systems Review of Systems: All systems reviewed & are unremarkable except as noted in HPI and below Constitutional: Constitutional: Reports no additional constitutional complaints Eyes: Eyes: Reports no additional eye complaints ENT: Reports system reviewed and no additional complaints, except as documented Cardiovascular: Cardiovascular: Reports no additional cardiovascular complaints, Denies chest pain and Denies dyspnea Respiratory: Respiratory: Reports no additional respiratory complaints, Denies cough and Denies dyspnea Musculoskeletal: Musculoskeletal: Reports no additional musculoskeletal complaints Neurologic: Reports system reviewed and no additional complaints, except as documented Psychiatric: Psychiatric: Reports no additional psychiatric complaints PMFSH Past Medical History Medical History (Updated 11/01/23 @ 21:51 by Dory Javier APRN) Abdominal bloating Anxiety Chronic anticoagulation Chronic kidney disease, stage 3 Compression fracture of body of thoracic vertebra Diarrhea Hyperlipidemia Hypertension Minimal cognitive impairment Paroxysmal atrial fibrillation Trochanteric fracture Surgical History Surgical History History of appendectomy History of cardiac catheterization History of cholecystectomy History of coronary artery stent placement History of hysterectomy History of partial colectomy History of tonsillectomy Family History Family History Father Family history of emphysema Patient's father is Mother Patient's mother is Family history of chronic obstructive pulmonary disease Social History Social History Smoking packs per day: 1.5 Smoking cigarettes per day: 30.0 Years smoked: 55 Smoking pack-years: 82.50 Smoking status: Former smoker Tobacco type: cigarettes Second hand tobacco smoke exposure: No Smoking end date: 01/09/23 Alcohol intake: never Drinks per week: 0 Substance use: never Substance use type: does not use Do You Feel Safe in your Home?: Yes Lack of Transportation: No Lack of Food: Never True Concerned About Future Housing: No Difficulty Paying Gas/Electric Bills: No Difficulty Paying for Meds: No Currently Unemployed: No Education: Bachelor's D
== END 2023-11-01 16:57 ==
PROVIDERS: Emergency Provider Nurse Practitioner Family; PCP Internal Medicine
DX: S50.862A Insect bite (nonvenomous) of left forearm, initial encounter (principal); W57.XXXA Bitten or stung by nonvenomous insect and other nonvenomous arthropods, initial encounter; L02.414 Cutaneous abscess of left upper limb; I12.9 Hypertensive chronic kidney disease with stage 1 through stage 4 chronic kidney disease, or unspecified chronic kidney disease; N18.30 Chronic kidney disease, stage 3 unspecified; I48.0 Paroxysmal atrial fibrillation; E78.5 Hyperlipidemia, unspecified; Z95.5 Presence of coronary angioplasty implant and graft; Z79.01 Long term (current) use of anticoagulants; Z87.891 Personal history of nicotine dependence
CPT/HCPCS: 99213; G0463

== ENCOUNTER 2023-11-04 08:44 | Outpatient (CLI) | payer MEDICARE, BC, SELFPAY ==
--- NOTE | 2023-11-28 12:12 | WPDSLEEPSTUD ---
Sleep Study Date of Study: 11/04/23 Ordering Provider: Tahir Donato MD Interpreting Physician: Radha Li DO Sleep Study Type: Polysomnogram Height: 1.65 m Weight: 65.771 kg Body Mass Index: 24.1 Neck Circumference (inches): 13 [place]: 0 Reason for Sleep Study Nocturnal oximetry showed SpO2 min of 82% while patient was on 6 lpm of O2. Sleep History The patient is an 78 year old female that had a sleep study ordered by her territory outside sales manager for an abnormal nocturnal oximetry. She denies snoring. She occasionally has trouble sleeping when she has cold. She rarely wakes up gasping. She denies having breathing problems observed by herself or others. She denies sweating excessively. She denies having heart palpitations or irregular heartbeats during day. She denies falling asleep during the day and while driving. She denies sleep paralysis, cataplexy and hypnagogic / hypnopompic hallucinations. She denies feeling afraid of going to sleep. She denies having nightmares. She occasionally remembers her dreams. She occasionally has thoughts racing through her mind. She occasionally feels sad, depressed and anxious. She occasionally has muscular tension. She denies noticing parts of body jerk. She denies kicking during the night. She denies having any feelings in her legs and is having the pain during the day. She denies grinding her teeth during sleep and denies awakening with morning jaw pain. She is frequently bothered by pain during the day but rarely awakened by pain during the day. She occasionally wakes in the stiff morning. She occasionally wakes up with sore or achy muscles. She frequently wakes pain in the neck, spine and joints. She goes to bed between 9-10 p.m. both weekdays and weekends. It takes her 1 hour to fall asleep. She wakes up once during the night to urinate and is able to fall back asleep within a few minutes. She wakes up between 7-8 a.m. on both weekdays weekends. She typically gets 10-12 hours of sleep per night. She will stay in bed for 30-60 minutes after waking. She currently lives alone assisted living. She denies consuming any caffeinated beverages within 2 hours of bedtime. She denies engaging in physical exercise before bedtime. She will watch television before falling asleep. She denies taking naps in afternoon. She consumes 1 cup of caffeinated beverage day. [facility] Past Medical History Medical History Abdominal bloating Anxiety Chronic anticoagulation Chronic kidney disease, stage 3 Compression fracture of body of thoracic vertebra Diarrhea Hyperlipidemia Hypertension Minimal cognitive impairment Paroxysmal atrial fibrillation Trochanteric fracture Surgical History Surgical History History of appendectomy History of cardiac catheterization History of cholecystectomy History of coronary artery stent placement History of hysterectomy History of partial colectomy History of tonsillectomy Family History Family History Father Family history of emphysema Patient's father is Mother Patient's mother is Family history of chronic obstructive pulmonary disease Social History Social History Smoking packs per day: 1.5 Smoking cigarettes per day: 30.0 Years smoked: 55 Smoking pack-years: 82.50 Smoking status: Former smoker Tobacco type: cigarettes Second hand tobacco smoke exposure: No Smoking end date: 01/09/23 Alcohol intake: never Drinks per week: 0 Substance use: never Substance use type: does not use Do You Feel Safe in your Home?: Yes Lack of Transportation: No Lack of Food: Never True Concerned About Future Housing: No Difficulty Paying Gas/Electric Bills: No Difficulty Paying for
[2023-11-29 10:58] VITALS: BMI 24.1
== END 2023-11-05 06:41 | disposition home or self-care (01) ==
LOC: ANHCSM 08:45
PROVIDERS: PCP Internal Medicine; Visit Provider Internal Medicine Pulmonary Disease
DX: G47.10 Hypersomnia, unspecified (principal); G47.34 Idiopathic sleep related nonobstructive alveolar hypoventilation; G47.61 Periodic limb movement disorder; I10 Essential (primary) hypertension
CPT/HCPCS: 95810

== ENCOUNTER 2023-11-18 12:35 | Outpatient (CLI) | payer MEDICARE, BC, SELFPAY ==
--- NOTE | ~2023-11-18 | US_ITS ---
EXAMINATION: US carotid duplex BI DATE: 11/18/2023 13:52 INDICATION: Atherosclerosis. TECHNIQUE: Grayscale, color Doppler, and pulsed Doppler images of the cervical carotid arteries were obtained. The degree of vessel stenosis is placed in one of the following categories: normal, <50%, 5 0-69%, >=70% but less than near-occlusion, near-occlusion, or total occlusion. Note that percent sten osis relative to normal distal artery lumen diameter is indirectly measured from velocity measurement s as described by Vipin, et al. Radiology 2003; 229:340-346. Notes: Normal: Peak systolic velocity <125 centimeters/sec and no plaque <50%. Peak systolic velocity <125 ( EDV <40; ICA/CCA PSV ratio <2.0; used these factors only a tandem lesions or low cardiac output or co ntralateral disease) 50-69 %: PSV 125-230 (EDV 40-100; ratio 2-4) >= 70% but less than near occlusion: PSV greater than 230 (EDV > 100; ratio> 4.0) Near Occlusion: PSV that is variable; markedly narrowed lumen Occlusion: Absent flow on color/spectral Doppler and no lumen on ramesh scale. COMPARISON: None. FINDINGS: RIGHT: The right common carotid artery (CCA) peak systolic velocity (PSV) is 78 cm/s. The right internal car otid artery (ICA) PSV is 124 cm/s. The right ICA end-diastolic velocity (EDV) is 22 cm/s. The right I CA/CCA PSV ratio is 1.6. The external carotid artery (ECA) PSV is 216 cm/s. There is antegrade flow i n the right vertebral artery. LEFT: The left CCA PSV is 77 cm/s. The left ICA PSV is 79 cm/s. The left ICA EDV is 12 cm/s. The left ICA/C CA PSV ratio is 1.0. The ECA PSV is 1:15 cm/s. There is antegrade flow in the left vertebral artery. IMPRESSION: 1. Less than 50% stenosis in the right internal carotid artery by sonographic criteria. 2. Less than 50% stenosis in the left internal carotid artery by sonographic criteria. Reviewed, dictated and finalized at location B. IMPRESSION: 1. Less than 50% stenosis in the right internal carotid artery by sonographic c deisy. 2. Less than 50% stenosis in the left internal carotid artery by sonographic cr anna.
== END 2023-11-18 12:36 | disposition home or self-care (01) ==
LOC: ANHIMG 12:37
PROVIDERS: PCP Internal Medicine; Visit Provider Psychiatry & Neurology Neurology
DX: Z09 Encounter for follow-up examination after completed treatment for conditions other than malignant neoplasm (principal); I65.23 Occlusion and stenosis of bilateral carotid arteries
CPT/HCPCS: 93880

== ENCOUNTER 2023-11-30 13:47 | Emergency (ER) | payer MEDICARE, BC, SELFPAY ==
--- NOTE | ~2023-11-30 | XR_ITS ---
XR chest 2V 11/30/2023 14:31 Indication: Shortness of breath. COPD. Procedure: 2 view chest Comparison: Comparison to multiple prior studies sequentially, with oldest reviewed study dated 03/13. Findings: Cardiomegaly. Mild interstitial edema. Small pleural effusions. Chronic midthoracic francisco javier barbara fracture. Osteopenia. No pneumothorax. Impression: 1: Cardiomegaly with mild interstitial edema. Reviewed, dictated and finalized at location B. Impression: 1: Cardiomegaly with mild interstitial edema.
[2023-11-30 13:54] VITALS: BP 114/74; PULSE 71; RESP 16; TEMP 36.4; O2SAT 88
--- NOTE | 2023-11-30 13:57 | ED.SOB ---
HPI - SOB/Dyspnea General Chief Complaint: Shortness of Breath/Dyspnea Stated Complaint: SOB/COUGH Time Seen by Provider: 11/30/23 14:00 Source: patient Mode of arrival: ambulatory Limitations: no limitations History of Present Illness HPI Narrative: 78 y/o female with hx COPD, chronic respiratory failure, afib, CAD, presented for c/o I think I have pneumonia or bronchitis. Pt reports for about 3-4 days, increased shortness of breath from baseline, productive cough of brown sputum, bloating in abdomen. Endorses increasing her nasal cannula during the day to 4L, at night 6L. States she still feels SOB with exertion. Dtr at bedside reports hearing crackles with coughing. Gaming Dealer called in Rx Z-pack for pt which she has not yet started. Denies chest pain, palpitations, n/v/d/f/c. Pt resides in assisted living, using w/c and cane. Tested negative for covid x2 since onset. Related Data Home Medications Medication Instructions Recorded Confirmed apixaban 5 mg tablet (Eliquis) 5 mg PO BID 08/07/20 11/01/23 furosemide 40 mg tablet 60 mg PO DAILY 08/07/20 11/01/23 pravastatin 40 mg tablet 40 mg PO HS 08/07/20 11/01/23 clopidogrel 75 mg tablet 75 mg PO DAILY 02/03/23 11/01/23 diltiazem HCl 240 mg 240 mg PO BID 10/05/23 11/01/23 capsule,extended release 24 hr Allergies Allergy/AdvReac Type Severity Reaction Status Date / Time steroids Allergy Mild Confusion Uncoded 11/30/23 14:05 Review of Systems Review of Systems: CONSTITUTIONAL: Denies body aches, fever, chills EYES: Denies visual changes, redness, or discharge. ENT: Denies rhinorrhea, congestion, sore throat, or otalgia. CARDIOVASCULAR: Denies chest pain, palpitations, or edema. RESPIRATORY: Reports cough, sob, wheezing. GASTROINTESTINAL: Reports abdominal bloating Denies abdominal pain, nausea, vomiting, or diarrhea. GENITOURINARY: Denies dysuria or hematuria. SKIN: Denies rash, itching, or wounds. NEUROLOGIC: Denies headache, numbness, tingling, or weakness. All systems reviewed & are unremarkable except as noted in HPI and below PMFSH Past Medical History Medical History Abdominal bloating Anxiety Chronic anticoagulation Chronic kidney disease, stage 3 Compression fracture of body of thoracic vertebra Diarrhea Hyperlipidemia Hypertension Minimal cognitive impairment Paroxysmal atrial fibrillation Trochanteric fracture Surgical History Surgical History History of appendectomy History of cardiac catheterization History of cholecystectomy History of coronary artery stent placement History of hysterectomy History of partial colectomy History of tonsillectomy Family History Family History Father Family history of emphysema Patient's father is Mother Patient's mother is Family history of chronic obstructive pulmonary disease Social History Social History Smoking packs per day: 1.5 Smoking cigarettes per day: 30.0 Years smoked: 55 Smoking pack-years: 82.50 Smoking status: Former smoker Tobacco type: cigarettes Second hand tobacco smoke exposure: No Smoking end date: 01/09/23 Alcohol intake: never Drinks per week: 0 Substance use: never Substance use type: does not use Do You Feel Safe in your Home?: Yes Lack of Transportation: No Lack of Food: Never True Concerned About Future Housing: No Difficulty Paying Gas/Electric Bills: No Difficulty Paying for Meds: No Currently Unemployed: No Education: Bachelor's Degree Difficulty w/ Childcare or Family Care: No Living arrangements: assisted living Additional living arrangements comments: currently living at [facility] in [place] Occupation/Education: retired Spiritual care concerns: No Comments At time of
[2023-11-30 14:55] VITALS: PULSE 70; RESP 20; O2SAT 83
--- NOTE | 2023-11-30 15:25 | PC.NURSE ---
1430- PT IS REFUSING TRANSFER OR EVALUATION AT ANY ER. PT AND DAUGHTER ARE AWARE OF RISKS AND BENEFITS OF SIGNING OUT AMA. PROCESS MANUFACTURING ENGINEER HAS SPOKEN TO PT'S DIGITAL MARKETING LEAD OFFICE, THEY ARE AWARE OF PT'S STATUS. PT IS A&OX4, DAUGHTER REPORTS THEY DO NOT FEEL COMFORTABLE TAKING PT TO ER AT THIS TIME DUE TO COVID RISKS. PT STATES SHE WOULD LIKE TO GO HOME AND START HER ZPACK. THIS RN ADVISES PT IF SX WORSEN SHE SHOULD CALL 911 OR BE TRANSPORTED TO ER FOR EVALUATION. PT REPORTS SHE IS NOT GOING TO DO THIS. PT REPORTS SHE IS HOWEVER, A FULL CODE. EDUCATED PT AND DAUGHTER ABOUT RISKS INCLUDING , THEY BOTH VERBALIZED UNDERSTANDING.
== END 2023-11-30 14:55 | disposition left against medical advice (07) ==
PROVIDERS: Emergency Provider Nurse Practitioner Family; PCP Internal Medicine
DX: R06.09 Other forms of dyspnea (principal); Z87.891 Personal history of nicotine dependence; I12.9 Hypertensive chronic kidney disease with stage 1 through stage 4 chronic kidney disease, or unspecified chronic kidney disease; N18.30 Chronic kidney disease, stage 3 unspecified; I25.10 Atherosclerotic heart disease of native coronary artery without angina pectoris; E78.5 Hyperlipidemia, unspecified; I48.0 Paroxysmal atrial fibrillation; Z79.01 Long term (current) use of anticoagulants; Z99.81 Dependence on supplemental oxygen
CPT/HCPCS: 71046; 99213; G0463

== ENCOUNTER 2023-12-01 16:55 | Inpatient (IN) | payer MEDICARE, BC, SELFPAY ==
[2023-12-01] VITALS (11 sets, daily range): BP systolic 128–155; BP diastolic 39–75; PULSE 61–98; RESP 15–26; TEMP 35.9–36.9; O2SAT 88–99; BMI 25.1
--- NOTE | ~2023-12-01 | XR_ITS ---
EXAMINATION: XR chest 1V portable DATE: 12/04/2023 10:29 INDICATION: Chronic obstructive pulmonary disease. Pneumonia. TECHNIQUE: A single frontal view of the chest was obtained. COMPARISON: Chest 2 views 12/01/23, chest CT 03/30/2023 FINDINGS: There is a diffuse interstitial pattern in the lungs, consistent with mild pulmonary edema. No pleural effusion or pneumothorax. Cardiomegaly is noted. IMPRESSION: 1. Mild pulmonary edema. 2. Cardiomegaly. Reviewed, dictated and finalized at location A.
--- NOTE | ~2023-12-01 | XR_ITS ---
EXAMINATION: XR chest 2V Exam Date/Time: 12/01/2023 18:47 CDT HISTORY: SHORT OF BREATH Comparison: 11/30/2023. RESULT: Lines, tubes, and devices: None. Lungs and pleura: Moderate diffuse reticular opacities. Segmental groundglass right upper lung opaci ty. Subsegmental dependent left lower lobe airspace disease. Mild bilateral costophrenic angle blunti ng, slightly increased. Cardiomediastinal silhouette: Stable. Other: No acute osseous or upper abdominal finding. IMPRESSION: Worsening pulmonary opacities may represent moderate edema overlying chronic interstitial changes, in fection is not excluded. Likely small bilateral effusions. Reviewed, dictated and finalized at location [facility]. IMPRESSION: Worsening pulmonary opacities may represent moderate edema overlying chronic in terstitial changes, infection is not excluded. Likely small bilateral effusions .
--- NOTE | 2023-12-01 17:06 | ECG_ITS ---
Test Date: 2023-12-01 17:08:52 Measurements Intervals [place] Rate: 83 P: 0 OR: 0 QRS: 53 QRSD: 94 T: -8 QT: 380 QTc: 448 Interpretive Statements ATRIAL FIBRILLATION POSSIBLESEPTAL MYOCARDIAL INFARCTION , PROBABLY OLD [40+ ms Q WAVE IN V1/V2] NONSPECIFIC ST SEGMENT ABNORMALITY ABNORMAL ECG No previous ECG available for comparison Electronically Signed On 12-02-2023 12:44:02 CDT by Tahir Amezcua M.D.
[2023-12-01 17:34] LABS: Basophils Percent Auto 0.4 % (0.2-1.2); Eosinophils Absolute Auto 0.2 K/mm3 (0-0.3); Eosinophils Percent Auto 2.7 % (0-4.4); Hematocrit 32.5 % (37.0-47.0); Immature Granulocyte Absolute 0.02 K/mm3 (0.00-0.031); Immature Granulocyte Percent A 0.2 % (0-0.5); Lymphocytes Absolute Auto 1.36 K/mm3 (0.9-3.2); Lymphocytes Percent Auto 16.7 % (18.3-44.2); Mean Corpuscular HGB Conc 30.8 g/dl (32-36); Mean Corpuscular Hemoglobin 29.2 pg (26-34); Mean Platelet Volume 9.1 fl (7.4-10.4); Monocytes Absolute Auto 0.7 K/mm3 (0.1-0.6); Monocytes Percent Auto 8.5 % (2.6-8.5); Neutrophils Absolute Auto 5.8 K/mm3 (1.3-6.7); Neutrophils Percent Auto 71.5 % (45.5-73.1); Platelet Count Result 181 k/mm3 (150-375); Red Blood Count 3.42 M/mm3 (4.2-5.4); Red Cell Distribution Width 16.3 % (11.5-14.5); White Blood Count 8.1 K/mm3 (4.5-10.0)
[2023-12-01 17:44] LABS: Alanine Aminotransferase 17 U/L (6-35); Albumin Level 4.3 g/dL (3.5-5.1); Alkaline Phosphatase 87 U/L (38-126); Anion Gap 11 mmol/L (4-12); Aspartate Amino Transferase 32 U/L (14-36); Bilirubin,Total 0.5 mg/dL (0.2-1.3); Blood Urea Nitrogen 15 mg/dL (7-17); Calcium 8.8 mg/dL (8.4-10.2); Carbon Dioxide 31 mmol/L (22-30); Chloride 98 mmol/L (98-107); Estimated CRCL calculation 36 ml/min; Estimated Glomerular Filt Rate 53; Glucose 98 mg/dL (65-110); Potassium 3.5 mmol/L (3.4-5.0); Sodium 140 mmol/L (137-145)
--- NOTE | 2023-12-01 17:50 | ED.SOB ---
HPI - SOB/Dyspnea General Chief Complaint: Shortness of Breath/Dyspnea <Anabela Escamilla PA-C - Last Filed: 12/01/23 20:10> Stated Complaint: cough, uti. low o2 <PADMINI Chao Last Filed: 12/01/23 20:10> Time Seen by Provider: 12/01/23 17:18 <Anabela Escamilla PA-C - Last Filed: 12/01/23 20:10> Source: patient and family <nAabela Escamilla PA-C - Last Filed: 12/01/23 20:10> Mode of arrival: EMS <PADMINI Chao Last Filed: 12/01/23 20:10> Limitations: no limitations <PADMINI Chao Last Filed: 12/01/23 20:10> History of Present Illness HPI Narrative: This is a 78-year-old female that presents to the emergency department for worsening shortness of breath. Ongoing over the last week. Associated with a productive cough. Reports history of COPD. Chronically wears oxygen via nasal cannula. Is requiring more oxygen than usual. Her daughter reports her abdomen seems distended. Denies fever, chest pain or lower extremity edema. <PADMINI Chao Last Filed: 12/01/23 20:10> Related Data Home Medications: Home Medications Medication Instructions Recorded Confirmed apixaban 5 mg tablet (Eliquis) 5 mg PO BID 08/07/20 12/01/23 furosemide 40 mg tablet 40 mg PO BID 08/07/20 12/01/23 pravastatin 40 mg tablet 40 mg PO HS 08/07/20 12/01/23 clopidogrel 75 mg tablet 75 mg PO DAILY 02/03/23 12/01/23 diltiazem HCl 240 mg 240 mg PO BID 10/05/23 12/01/23 capsule,extended release 24 hr albuterol sulfate 90 mcg/actuation 2 puff inhalation Q4H PRN 12/01/23 12/01/23 aerosol inhaler Shortness Of Breath Or Wheezing colestipol 1 gram tablet 1 g PO DAILY 12/01/23 12/01/23 diphenhydramine 25 2 tablet PO HS 12/01/23 12/01/23 mg-acetaminophen 500 mg tablet (Tylenol PM Extra Strength) <Anabela Escamilla PA-C - Last Filed: 12/01/23 20:10> Allergies/Adverse Reactions: Allergies Allergy/AdvReac Type Severity Reaction Status Date / Time steroids Allergy Mild Confusion Uncoded 11/30/23 14:05 <Anabela Escamilla PA-C - Last Filed: 12/01/23 20:10> Review of Systems Review of Systems: CONSTITUTIONAL: Denies fever ENT: Reports congestion CARDIOVASCULAR: Denies chest pain, or edema. RESPIRATORY: Reports cough and dyspnea. GASTROINTESTINAL: Denies abdominal pain, nausea, vomiting GENITOURINARY: Denies dysuria or hematuria. <Anabela Escamilla PA-C - Last Filed: 12/01/23 20:10> All systems reviewed & are unremarkable except as noted in HPI and below <Anabela Escamilla PA-C - Last Filed: 12/01/23 20:10> [facility] Past Medical History Medical History: Medical History Abdominal bloating Anxiety Chronic anticoagulation Chronic kidney disease, stage 3 Compression fracture of body of thoracic vertebra Diarrhea Hyperlipidemia Hypertension Minimal cognitive impairment Paroxysmal atrial fibrillation Trochanteric fracture <Anabela Escamilla PA-C - Last Filed: 12/01/23 20:10> Surgical History Surgical History: Surgical History History of appendectomy History of cardiac catheterization History of cholecystectomy History of coronary artery stent placement History of hysterectomy History of partial colectomy History of tonsillectomy <Anabela Escamilla PA-C - Last Filed: 12/01/23 20:10> Family History Family History: Family History Father Family history of emphysema Patient's father is Mother Patient's mother is Family history of chronic obstructive pulmonary disease <Anabela Escamilla PA-C - Last Filed: 12/01/23 20:10> Social History Social History: Social History Smoking packs per day: 1.5 Smoking cigarettes per day: 30.0 Years smoked: 55 Smoking pack-years: 82.50 Smoking status: Former s
[2023-12-01 17:59] LABS: Fractional Inspired Oxygen 32 %; HCO3 VBG 29.4 mEq/l (24.0-30.0); PCO2 VBG 43.1 mmHg (42.0-48.0); PO2 VBG 39.7 mmHg (35.0-45.0)
[2023-12-01 18:03] LABS: Device NASAL CANNULA; pH VBG 7.451 (7.300-7.400)
[2023-12-01 18:05] LABS: Add Urine Microscopic? YES; Appearance Urine Clear (Clear); Bacteria Urine None Seen /hpf; Bilirubin Urine Negative (Negative); Blood Urine Negative (Negative); Color Urine Yellow (Yellow); Glucose Urine UA Negative (Negative); Ketones Urine Negative (Negative); Leukocyte Esterase Ur Trace LEU/UL (Negative); Nitrate Urine Negative (Negative); Non Pathogenic Casts 0-2; Protein Urine Negative (Negative); RBC Urine 0-2 /hpf (0-2); Specific Grav Ur 1.008 (1.001-1.035); Squamous Epithelial Cell Urine Occasional /hpf (Few); Urobilinogen Urine 0.2 mg/dL (<2.0); pH Urine 5.5 (5.0-9.0)
[2023-12-01] MEDS: IPRATROPIUM 0.5 MG/ALBUTEROL SULFATE 2.5 MG AMPUL.NEB 3 ML INHALATION (18:08)
[2023-12-01 18:09] LABS: Influenza A QL RT-PCR Negative (Negative); Influenza B QL RT-PCR Negative (Negative); RSV RNA, RT-PCR Negative (Negative); SARS-CoV-2 RNA PCR Negative (Negative)
--- NOTE | 2023-12-01 19:38 | PC.NURSE ---
Assumed care of pt after receiving bedside report from LENORA Mendoza. [id number]
[2023-12-01] MEDS: methylPREDNISolone SOD SUCC 125 MG VIAL IV PUSH (20:03)
--- NOTE | 2023-12-01 20:12 | PM.IMHP ---
H&P: HPI History of Present Illness Date/Time: 12/01/23 20:12 Chief Complaint: sob Narrative: This is an 78-year-old female with past medical history significant for atrial fibrillation rate controlled anticoagulated, chronic kidney disease, hypertension dyslipidemia. Patient presented to the emergency room due to worsening shortness of breath cough productive of sputum time and call or, copious amount, had been to Urgent Care was prescribed Zithromax however did not improve. In emergency room patient was found to low oxygen saturation usually on 2-3 L of supplemental oxygen my home was increased to 4 L. Preliminary workup was significant for chest x-ray with infiltrates EXAMINATION: XR chest 2V Exam Date/Time: 12/01/2023 18:47 CDT HISTORY: SHORT OF BREATH Comparison: 11/30/2023. RESULT: Lines, tubes, and devices: None. Lungs and pleura: Moderate diffuse reticular opacities. Segmental groundglass right upper lung opacity. Subsegmental dependent left lower lobe airspace disease. Mild bilateral costophrenic angle blunting, slightly increased. Cardiomediastinal silhouette: Stable. Other: No acute osseous or upper abdominal finding. IMPRESSION: Worsening pulmonary opacities may represent moderate edema overlying chronic interstitial changes, infection is not excluded. Likely small bilateral effusions. Review of Systems Review of Systems: sob [facility] Past Medical History Medical History Abdominal bloating Anxiety Chronic anticoagulation Chronic kidney disease, stage 3 Compression fracture of body of thoracic vertebra Diarrhea Hyperlipidemia Hypertension Minimal cognitive impairment Paroxysmal atrial fibrillation Trochanteric fracture Surgical History Surgical History History of appendectomy History of cardiac catheterization History of cholecystectomy History of coronary artery stent placement History of hysterectomy History of partial colectomy History of tonsillectomy Family History Family History Father Family history of emphysema Patient's father is Mother Patient's mother is Family history of chronic obstructive pulmonary disease Social History Social History Smoking packs per day: 1.5 Smoking cigarettes per day: 30.0 Years smoked: 55 Smoking pack-years: 82.50 Smoking status: Former smoker Tobacco type: cigarettes Second hand tobacco smoke exposure: No Smoking end date: 01/09/23 Alcohol intake: never Drinks per week: 0 Substance use: never Substance use type: does not use Do You Feel Safe in your Home?: Yes Lack of Transportation: No Lack of Food: Never True Current Housing: I Have Housing Concerned About Future Housing: No Difficulty Paying Gas/Electric Bills: No Difficulty Paying for Meds: No Currently Unemployed: No Education: Bachelor's Degree Difficulty w/ Childcare or Family Care: No Living arrangements: assisted living Additional living arrangements comments: currently living at [facility] in [place] Occupation/Education: retired Spiritual care concerns: No Meds Home Medications and Allergies Home Medications Medication Instructions Recorded Confirmed Type apixaban 5 mg tablet (Eliquis) 5 mg PO BID 08/07/20 12/01/23 History furosemide 40 mg tablet 40 mg PO BID 08/07/20 12/01/23 History pravastatin 40 mg tablet 40 mg PO HS 08/07/20 12/01/23 History clopidogrel 75 mg tablet 75 mg PO DAILY 02/03/23 12/01/23 History tiotropium 2.5 mcg-olodaterol 2.5 1 puff inhalation BID #4 grams 05/30/23 12/01/23 Rx mcg/actuation mist for inhalation folic acid 1 mg tablet 1 mg PO DAILY #90 tabs 09/26/23 12/01/23 Rx diltiazem HCl 240 mg 240 mg PO BID 10/05/23 12/01/23 History capsu
--- NOTE | 2023-12-01 21:09 | ADMGEN ---
This patient, Maria Dolores Henry, was admitted to Medical Room 342-01. Patient/family oriented to hospital policies and general routines including ID bracelet, bed and alarms, visiting hours, pain management, procedures, bathroom and other care routines, personal items, smoking policy, room service/diet, and visiting hours. Information on how to activate the Rapid Response Team has been discussed. Patient/Family are encouraged to report perceived risks to care and to ask questions if they do not understand what they are told or what they should do.
[2023-12-01] MEDS: AZITHROMYCIN 500 MG/NS 250 ML 500 MG/250 ML BAG 250 MG IVPB (21:34)
[2023-12-02] VITALS (13 sets, daily range): BP systolic 147–154; BP diastolic 66–85; PULSE 83–113; RESP 16–20; TEMP 35.7–36.7; O2SAT 93–98
[2023-12-02] MEDS: APIXABAN 5 MG TABLET PO ×2 (08:25→20:37)
[2023-12-02] MEDS: SERTRALINE HCL 50 MG TABLET 200 MG PO (08:25)
[2023-12-02] MEDS: CLOPIDOGREL BISULFATE 75 MG TABLET PO (08:25)
[2023-12-02] MEDS: FOLIC ACID 1 MG TABLET PO (08:25)
[2023-12-02] MEDS: FUROSEMIDE 40 MG TABLET PO ×2 (08:25→15:00)
[2023-12-02] MEDS: COLESTIPOL HCL 1 GM TABLET PO (08:30)
[2023-12-02] MEDS: dilTIAZem HCL CD 240 MG CAP.24HR PO ×2 (08:30→17:34)
[2023-12-02] MEDS: UMECLIDINIUM/VILANTEROL 62.5-25 MCG ELLIPTA 1 PUFF INHALATION (08:58)
--- NOTE | 2023-12-02 10:58 | PM.IMPN ---
Progress Note: A&P Assessment and Plan (1) Acute on chronic respiratory failure: Qualifiers: Respiratory failure complication: hypoxia Qualified Code(s): J96.21 - Acute and chronic respiratory failure with hypoxia Code(s): J96.20 - Acute and chronic respiratory failure, unspecified whether with hypoxia or hypercapnia Status: Acute Assessment and Plan: - monitor resp status, supplemental o2 ordered received steroid, azithromycin and ceftriaxone x 1 in er and nothing is reordered since- will re order -IS - resp tx prn- levalbuterol prn (2) COPD exacerbation: Code(s): J44.1 - Chronic obstructive pulmonary disease with (acute) exacerbation Status: Acute Assessment and Plan: - IV steroids administered in ed - will order prednisone 40 gm daily x 5 days (3) PLMD (periodic limb movement disorder): Code(s): G47.61 - Periodic limb movement disorder Status: Acute (4) Diastolic heart failure: Code(s): I50.30 - Unspecified diastolic (congestive) heart failure Status: Acute (5) Atrial fibrillation: Code(s): I48.91 - Unspecified atrial fibrillation Status: Acute Assessment and Plan: - continue home eliquis (6) Chronic kidney disease, stage 3: Code(s): N18.30 - Chronic kidney disease, stage 3 unspecified Status: Chronic Time Spent With Patient Time with patient: Greater than 35 minutes Subjective Date/time seen: 12/02/23 10:58 Interval history: Pt is admitted for sob Narrative retrieved from H/P: This is an 78-year-old female with past medical history significant for atrial fibrillation rate controlled anticoagulated, chronic kidney disease, hypertension dyslipidemia. Patient presented to the emergency room due to worsening shortness of breath cough productive of sputum time and call or, copious amount, had been to Urgent Care was prescribed Zithromax however did not improve. In emergency room patient was found to low oxygen saturation usually on 2-3 L of supplemental oxygen my home was increased to 4 L. Preliminary workup was significant for chest x-ray with infiltrates 12/01 pt is seen and examined. She is very pleasant, denies pain, gets SOB with activity, reports some cough.. Review of Systems Review of Systems: sob Exam Const: General: comfortable, no acute distress, well developed, alert, awake and average body habitus Nutritional Appearance: average body habitus Orientation/consciousness: patient oriented x3 HENMT: Head: normal to inspection, normocephalic and atraumatic Ears: hearing grossly normal bilaterally Face/Nose/Sinus: normal facial exam Face and sinus: normal facial exam Eyes: General: appearance normal, both eyes and all related structures Pupils: Equal, round and reactive pupils present EOM: EOMs intact bilaterally Neck: Neck: full ROM, no lymphadenopathy and no JVD Thyroid: thyroid normal Lymphatic: no lymphadenopathy noted Resp: Effort & Inspection: normal respiratory effort and able to speak in complete sentences Auscultation: rales, wheezes and other (course breath sounds) Cardio: Jugular venous distension: no JVD Rate: regular rate Rhythm: regular rhythm Heart sounds: S1 normal heart sound present and S2 normal heart sound present : General: Yes deferred Skin: Rashes: no rashes Wounds: no wounds Neuro: General: patient oriented x3 and CN's II-XI intact bilaterally Cranial nerves: Yes CN's II-XII intact bilaterally and Yes Equal, round and reactive pupils present Cognition (Neuro): normal cognition Speech: normal speech Gait exam (Neuro): Normal gait present Motor exam (neuro): 5/5 motor strength present throughout Extrem: General: normal to inspection, full ROM, no joint enlargement and no pedal edema Objective Data Vital Signs Vital Signs: Vital Signs - 24 hr 12/01/23 16:51 12/01/23 17:13 12/01/23 17:05 Temperature 98.5 F Pulse Rate 98 Respiratory Rate 18
[2023-12-02] MEDS: ALPRAZolam (*CRX) 0.5 MG TABLET 1 MG PO ×2 (15:00→20:38)
[2023-12-02] MEDS: LEVALBUTEROL HFA (*SP) 15 GM INHALER 2 PUFF INHALATION (15:20)
[2023-12-02] MEDS: SACCHAROMYCES BOULARDII 250 MG CAPSULE PO (17:34)
[2023-12-02 18:45] LABS: NT Pro B Type Natriuretic Pept 1090 pg/mL (19.9-100)
[2023-12-02] MEDS: ACETAMINOPHEN 500 MG TABLET 1000 MG BY MOUTH (20:38)
[2023-12-02] MEDS: guaiFENesin 12 HR 600 MG TABCR PO (20:38)
[2023-12-02] MEDS: diphenhydrAMINE HCl CAP 25 MG CAPSULE 50 MG PO (20:38)
[2023-12-02] MEDS: PRAVASTATIN SODIUM 20 MG TABLET 40 MG PO (20:38)
[2023-12-02] MEDS: AZITHROMYCIN 500 MG/NS 250 ML 500 MG/250 ML BAG 125 MG IVPB (21:29)
[2023-12-03] VITALS (12 sets, daily range): BP systolic 117–143; BP diastolic 52–83; PULSE 71–96; RESP 18–21; TEMP 36.2–36.9; O2SAT 93–96
[2023-12-03] MEDS: UMECLIDINIUM/VILANTEROL 62.5-25 MCG ELLIPTA 1 PUFF INHALATION (08:25)
--- NOTE | 2023-12-03 08:32 | PM.IMPN ---
Progress Note: A&P Assessment and Plan (1) Acute on chronic respiratory failure: Qualifiers: Respiratory failure complication: hypoxia Qualified Code(s): J96.21 - Acute and chronic respiratory failure with hypoxia Code(s): J96.20 - Acute and chronic respiratory failure, unspecified whether with hypoxia or hypercapnia Status: Acute Assessment and Plan: - monitor resp status, supplemental o2 ordered received steroid, azithromycin and ceftriaxone x 1 in er and nothing is reordered since- will re order -IS - resp tx prn- levalbuterol prn (2) COPD exacerbation: Code(s): J44.1 - Chronic obstructive pulmonary disease with (acute) exacerbation Status: Acute Assessment and Plan: - IV steroids administered in ed - will order prednisone 40 gm daily x 5 days - continue antibiotics - IS, ambulate as tolerated, out of bed for meals (3) PLMD (periodic limb movement disorder): Code(s): G47.61 - Periodic limb movement disorder Status: Acute (4) Diastolic heart failure: Code(s): I50.30 - Unspecified diastolic (congestive) heart failure Status: Acute (5) Atrial fibrillation: Code(s): I48.91 - Unspecified atrial fibrillation Status: Acute Assessment and Plan: - continue home eliquis (6) Chronic kidney disease, stage 3: Code(s): N18.30 - Chronic kidney disease, stage 3 unspecified Status: Chronic Assessment and Plan: monitor labs Time Spent With Patient Time with patient: Greater than 35 minutes Subjective Date/time seen: 12/03/23 08:32 Interval history: Pt is admitted for sob Narrative retrieved from H/P: This is an 78-year-old female with past medical history significant for atrial fibrillation rate controlled anticoagulated, chronic kidney disease, hypertension dyslipidemia. Patient presented to the emergency room due to worsening shortness of breath cough productive of sputum time and call or, copious amount, had been to Urgent Care was prescribed Zithromax however did not improve. In emergency room patient was found to low oxygen saturation usually on 2-3 L of supplemental oxygen my home was increased to 4 L. Preliminary workup was significant for chest x-ray with infiltrates 12/01 pt is seen and examined. She is very pleasant, denies pain, gets SOB with activity, reports some cough. 12/02- pt is seen and examined. Slept well, cough- musinex was started. Resp therapist at the bedside- breathing tx helping. Lilly n/v/d. . Review of Systems Review of Systems: sob Exam Const: General: comfortable, no acute distress, well developed, alert, awake and average body habitus Nutritional Appearance: average body habitus Orientation/consciousness: patient oriented x3 HENMT: Head: normal to inspection, normocephalic and atraumatic Ears: hearing grossly normal bilaterally Face/Nose/Sinus: normal facial exam Face and sinus: normal facial exam Eyes: General: appearance normal, both eyes and all related structures Pupils: Equal, round and reactive pupils present EOM: EOMs intact bilaterally Neck: Neck: full ROM, no lymphadenopathy and no JVD Thyroid: thyroid normal Lymphatic: no lymphadenopathy noted Resp: Effort & Inspection: normal respiratory effort and able to speak in complete sentences Auscultation: rales, wheezes and other (course breath sounds) Cardio: Jugular venous distension: no JVD Rate: regular rate Rhythm: regular rhythm Heart sounds: S1 normal heart sound present and S2 normal heart sound present : General: Yes deferred Skin: Rashes: no rashes Wounds: no wounds Neuro: General: patient oriented x3 and CN's II-XI intact bilaterally Cranial nerves: Yes CN's II-XII intact bilaterally and Yes Equal, round and reactive pupils present Cognition (Neuro): normal cognition Speech: normal speech Gait exam (Neuro): Normal gait present Motor exam (neuro): 5/5 motor strength present throughout Extrem:
[2023-12-03] MEDS: predniSONE 20 MG TABLET 40 MG PO (08:36)
[2023-12-03] MEDS: guaiFENesin 12 HR 600 MG TABCR PO ×2 (08:36→21:10)
[2023-12-03] MEDS: FOLIC ACID 1 MG TABLET PO (08:36)
[2023-12-03] MEDS: ACETAMINOPHEN 500 MG TABLET 1000 MG BY MOUTH ×2 (08:36→21:09)
[2023-12-03] MEDS: CLOPIDOGREL BISULFATE 75 MG TABLET PO (08:36)
[2023-12-03] MEDS: SERTRALINE HCL 50 MG TABLET 200 MG PO (08:36)
[2023-12-03] MEDS: APIXABAN 5 MG TABLET PO ×2 (08:37→21:09)
[2023-12-03] MEDS: dilTIAZem HCL CD 240 MG CAP.24HR PO ×2 (08:37→17:16)
[2023-12-03] MEDS: SACCHAROMYCES BOULARDII 250 MG CAPSULE PO ×3 (08:37→17:16)
[2023-12-03] MEDS: COLESTIPOL HCL 1 GM TABLET PO (08:37)
[2023-12-03] MEDS: FUROSEMIDE 40 MG TABLET PO ×2 (08:42→13:22)
--- NOTE | 2023-12-03 10:59 | PC.NURSE ---
RN called Christy patient's daughter and gave her an update on patient status via telephone.
[2023-12-03] MEDS: ALPRAZolam (*CRX) 0.5 MG TABLET 1 MG PO (21:09)
[2023-12-03] MEDS: diphenhydrAMINE HCl CAP 25 MG CAPSULE 50 MG PO (21:09)
[2023-12-03] MEDS: PRAVASTATIN SODIUM 20 MG TABLET 40 MG PO (21:10)
[2023-12-03] MEDS: AZITHROMYCIN 500 MG/NS 250 ML 500 MG/250 ML BAG 125 MG IVPB (21:28)
[2023-12-04] VITALS (10 sets, daily range): BP systolic 124–141; BP diastolic 65–83; PULSE 71–121; RESP 16–18; TEMP 36.6–36.9; O2SAT 90–96
--- NOTE | 2023-12-04 07:45 | PM.IMPN ---
Progress Note: A&P Assessment and Plan (1) Acute on chronic respiratory failure: Qualifiers: Respiratory failure complication: hypoxia Qualified Code(s): J96.21 - Acute and chronic respiratory failure with hypoxia Code(s): J96.20 - Acute and chronic respiratory failure, unspecified whether with hypoxia or hypercapnia Status: Acute Assessment and Plan: - monitor resp status, supplemental o2 ordered received steroid, azithromycin and ceftriaxone x 1 in er and nothing is reordered since- will re order -IS - resp tx prn- levalbuterol prn (2) COPD exacerbation: Code(s): J44.1 - Chronic obstructive pulmonary disease with (acute) exacerbation Status: Acute Assessment and Plan: - IV steroids administered in ed - will order prednisone 40 gm daily x 5 days - continue antibiotics - IS, ambulate as tolerated, out of bed for meals - de escalate antibiotics to PO and discharge tomorrow (3) PLMD (periodic limb movement disorder): Code(s): G47.61 - Periodic limb movement disorder Status: Acute (4) Diastolic heart failure: Code(s): I50.30 - Unspecified diastolic (congestive) heart failure Status: Acute (5) Atrial fibrillation: Code(s): I48.91 - Unspecified atrial fibrillation Status: Acute Assessment and Plan: - continue home eliquis (6) Chronic kidney disease, stage 3: Code(s): N18.30 - Chronic kidney disease, stage 3 unspecified Status: Chronic Assessment and Plan: monitor labs Time Spent With Patient Time with patient: Greater than 35 minutes Subjective Date/time seen: 12/04/23 07:45 Interval history: Pt is admitted for sob Narrative retrieved from H/P: This is an 78-year-old female with past medical history significant for atrial fibrillation rate controlled anticoagulated, chronic kidney disease, hypertension dyslipidemia. Patient presented to the emergency room due to worsening shortness of breath cough productive of sputum time and call or, copious amount, had been to Urgent Care was prescribed Zithromax however did not improve. In emergency room patient was found to low oxygen saturation usually on 2-3 L of supplemental oxygen my home was increased to 4 L. Preliminary workup was significant for chest x-ray with infiltrates 12/01 pt is seen and examined. She is very pleasant, denies pain, gets SOB with activity, reports some cough. 12/02- pt is seen and examined. Slept well, cough- musinex was started. Resp therapist at the bedside- breathing tx helping. Denies n/v/d. 12/03 continues with breathing treatments- slowly improving. still cough and sob with exertion Review of Systems Review of Systems: sob Exam Const: General: comfortable, no acute distress, well developed, alert, awake and average body habitus Nutritional Appearance: average body habitus Orientation/consciousness: patient oriented x3 HENMT: Head: normal to inspection, normocephalic and atraumatic Ears: hearing grossly normal bilaterally Face/Nose/Sinus: normal facial exam Face and sinus: normal facial exam Eyes: General: appearance normal, both eyes and all related structures Pupils: Equal, round and reactive pupils present EOM: EOMs intact bilaterally Neck: Neck: full ROM, no lymphadenopathy and no JVD Thyroid: thyroid normal Lymphatic: no lymphadenopathy noted Resp: Effort & Inspection: normal respiratory effort and able to speak in complete sentences Auscultation: rales, wheezes and other (course breath sounds) Cardio: Jugular venous distension: no JVD Rate: regular rate Rhythm: regular rhythm Heart sounds: S1 normal heart sound present and S2 normal heart sound present : General: Yes deferred Skin: Rashes: no rashes Wounds: no wounds Neuro: General: patient oriented x3 and CN's II-XI intact bilaterally Cranial nerves: Yes CN's II-XII intact bilaterally and Yes Equal, round and reactive pupils present Cognition (Neuro): no
[2023-12-04] MEDS: UMECLIDINIUM/VILANTEROL 62.5-25 MCG ELLIPTA 1 PUFF INHALATION (08:03)
[2023-12-04 08:58] LABS: Hematocrit 33.2 % (37.0-47.0); Hemoglobin 9.9 g/dL (12.0-15.0); Mean Corpuscular HGB Conc 29.8 g/dl (32-36); Mean Corpuscular Hemoglobin 29.2 pg (26-34); Mean Corpuscular Volume 97.9 fl (80-100); Mean Platelet Volume 9.3 fl (7.4-10.4); Platelet Count Result 199 k/mm3 (150-375); Red Blood Count 3.39 M/mm3 (4.2-5.4); Red Cell Distribution Width 17.1 % (11.5-14.5)
[2023-12-04] MEDS: APIXABAN 5 MG TABLET PO ×2 (08:59→20:47)
[2023-12-04] MEDS: ACETAMINOPHEN 500 MG TABLET 1000 MG BY MOUTH ×2 (08:59→20:48)
[2023-12-04] MEDS: CLOPIDOGREL BISULFATE 75 MG TABLET PO (08:59)
[2023-12-04] MEDS: dilTIAZem HCL CD 240 MG CAP.24HR PO ×2 (09:00→18:00)
[2023-12-04] MEDS: FOLIC ACID 1 MG TABLET PO (09:01)
[2023-12-04] MEDS: guaiFENesin 12 HR 600 MG TABCR PO ×2 (09:02→20:48)
[2023-12-04] MEDS: COLESTIPOL HCL 1 GM TABLET PO (09:02)
[2023-12-04] MEDS: FUROSEMIDE 40 MG TABLET PO ×2 (09:02→14:28)
[2023-12-04] MEDS: SACCHAROMYCES BOULARDII 250 MG CAPSULE PO ×3 (09:03→18:00)
[2023-12-04] MEDS: SERTRALINE HCL 50 MG TABLET 200 MG PO (09:03)
[2023-12-04] MEDS: predniSONE 20 MG TABLET 40 MG PO (09:03)
[2023-12-04 09:06] LABS: Anion Gap 12 mmol/L (4-12); Blood Urea Nitrogen 18 mg/dL (7-17); Calcium 8.7 mg/dL (8.4-10.2); Carbon Dioxide 30 mmol/L (22-30); Chloride 99 mmol/L (98-107); Estimated CRCL calculation 46 ml/min; Estimated Glomerular Filt Rate > 60; Glucose 99 mg/dL (65-110); Potassium 3.1 mmol/L (3.4-5.0); Sodium 141 mmol/L (137-145)
[2023-12-04] MEDS: POTASSIUM CHLORIDE 20 MEQ ER TABLET 40 MEQ PO (18:01)
[2023-12-04] MEDS: ALPRAZolam (*CRX) 0.5 MG TABLET 1 MG PO (20:47)
[2023-12-04] MEDS: PRAVASTATIN SODIUM 20 MG TABLET 40 MG PO (20:48)
[2023-12-04] MEDS: diphenhydrAMINE HCl CAP 25 MG CAPSULE 50 MG PO (20:48)
[2023-12-04] MEDS: AZITHROMYCIN 500 MG/NS 250 ML 500 MG/250 ML BAG 125 MG IVPB (21:28)
[2023-12-05] VITALS (7 sets, daily range): BP systolic 128; BP diastolic 59; PULSE 71–90; RESP 16; TEMP 36.8; O2SAT 93–97
[2023-12-05 07:03] LABS: Hematocrit 31.7 % (37.0-47.0); Hemoglobin 9.7 g/dL (12.0-15.0); Mean Corpuscular HGB Conc 30.6 g/dl (32-36); Mean Corpuscular Hemoglobin 29.8 pg (26-34); Mean Corpuscular Volume 97.2 fl (80-100); Mean Platelet Volume 9.5 fl (7.4-10.4); Platelet Count Result 193 k/mm3 (150-375); Red Blood Count 3.26 M/mm3 (4.2-5.4)
[2023-12-05 07:14] LABS: Anion Gap 12 mmol/L (4-12); Blood Urea Nitrogen 19 mg/dL (7-17); Calcium 8.5 mg/dL (8.4-10.2); Carbon Dioxide 25 mmol/L (22-30); Chloride 102 mmol/L (98-107); Estimated CRCL calculation 46 ml/min; Estimated Glomerular Filt Rate > 60; Glucose 106 mg/dL (65-110); Potassium 3.5 mmol/L (3.4-5.0); Sodium 139 mmol/L (137-145)
[2023-12-05] MEDS: UMECLIDINIUM/VILANTEROL 62.5-25 MCG ELLIPTA 1 PUFF INHALATION (09:06)
[2023-12-05] MEDS: AZITHROMYCIN 250 MG TABLET 500 MG PO (10:01)
[2023-12-05] MEDS: CLOPIDOGREL BISULFATE 75 MG TABLET PO (10:01)
[2023-12-05] MEDS: SACCHAROMYCES BOULARDII 250 MG CAPSULE PO (10:01)
[2023-12-05] MEDS: predniSONE 20 MG TABLET 40 MG PO (10:01)
[2023-12-05] MEDS: COLESTIPOL HCL 1 GM TABLET PO (10:02)
[2023-12-05] MEDS: FUROSEMIDE 40 MG TABLET PO (10:02)
[2023-12-05] MEDS: dilTIAZem HCL CD 240 MG CAP.24HR PO (10:02)
[2023-12-05] MEDS: APIXABAN 5 MG TABLET PO (10:02)
[2023-12-05] MEDS: guaiFENesin 12 HR 600 MG TABCR PO (10:02)
[2023-12-05] MEDS: FOLIC ACID 1 MG TABLET PO (10:02)
[2023-12-05] MEDS: SERTRALINE HCL 50 MG TABLET 200 MG PO (10:02)
[2023-12-05] MEDS: cefuroxime axetiL 250 MG TABLET 500 MG PO (10:06)
[2023-12-05] MEDS: ACETAMINOPHEN 500 MG TABLET 1000 MG BY MOUTH (10:06)
--- NOTE | 2023-12-05 12:28 | PM.DS ---
DS: Admitting Diagnosis Discharge Date 12/05/2023 Admitting Diagnosis Acute on chronic respiratory failure Acute on chronic COPD exacerbation DS: Discharge Diagnosis Discharge Diagnosis (1) Acute on chronic respiratory failure: Qualifiers: Respiratory failure complication: hypoxia Qualified Code(s): J96.21 - Acute and chronic respiratory failure with hypoxia Code(s): J96.20 - Acute and chronic respiratory failure, unspecified whether with hypoxia or hypercapnia Status: Acute Assessment and Plan: - monitor resp status, supplemental o2 ordered received steroid, azithromycin and ceftriaxone x 1 in er and nothing is reordered since- will re order -IS - resp tx prn- levalbuterol prn 12/05/2023: Date of discharge -discharged home today on Zithromax and Ceftin. In addition discharge: Problems own 40 mg daily for 5 days. Patient requiring 4 L supplemental oxygen during the 6 L at night. She is stable for discharge at this time. (2) COPD exacerbation: Code(s): J44.1 - Chronic obstructive pulmonary disease with (acute) exacerbation Status: Acute Assessment and Plan: - IV steroids administered in ed - will order prednisone 40 gm daily x 5 days - continue antibiotics - IS, ambulate as tolerated, out of bed for meals - de escalate antibiotics to PO and discharge tomorrow 12/05/2023: Date of discharge -see problem 1.. Patient now with stable respiratory status. (3) PLMD (periodic limb movement disorder): Code(s): G47.61 - Periodic limb movement disorder Status: Chronic Assessment and Plan: Xanax 1 mg p.o. q.h.s. was continued. 12/05/2023: Date of discharge -patient to continue her home dose of Xanax. (4) Diastolic heart failure: Code(s): I50.30 - Unspecified diastolic (congestive) heart failure Status: Chronic Assessment and Plan: 12/05/2023: Date of discharge -no exacerbation during her current hospitalization. Continue home medication of Lasix. Last documented ejection fraction showing normal left systolic function with EF of 60-65%. (5) Atrial fibrillation: Code(s): I48.91 - Unspecified atrial fibrillation Status: Chronic Assessment and Plan: - continue home eliquis 12/05/2023: Date of discharge -continue home Eliquis (6) Chronic kidney disease, stage 3: Code(s): N18.30 - Chronic kidney disease, stage 3 unspecified Status: Chronic Assessment and Plan: monitor labs 12/05/2023: date of discharge -patient with normal renal function on discharge with creatinine of 0.8 and BUN of 19. DS: Summary Hospital Course Reason for hospitalization: Acute on chronic respiratory failure with COPD exacerbation Hospital Course: This very pleasant 78-year-old female patient with past medical history significant of COPD, chronic respiratory failure, atrial fibrillation on chronic Eliquis, CKD, hypertension and hyperlipidemia presented and was subsequently admitted to the hospital on November 30 after presenting to the ER with 1 week of ongoing dyspnea productive cough. Patient states she felt as though she needed more oxygen than usual to maintain her breathing. She was admitted with acute on chronic respiratory failure secondary to a COPD exacerbation and started on Rocephin, Zithromax and IV steroids. Initial chest x-ray performed on 11/30 showing worsening pulmonary opacities that may represent moderate edema overlying chronic interstitial changes but infection was not excluded. There was likely bilateral small effusions. There were no acute signs of acute infection as patient had noted no leukocytosis. Repeat chest x-ray was performed on 12/04/2023 showing no acute pneumonia. There was mild pulmonary edema and cardiomegaly. As patient has had a favorable course during her hospitalization her antibiotics were switched to azithromycin and Ceftin p.o. and she will be started on p.o. prednisone at discharge. Patient is en
== END 2023-12-05 13:22 | DRG 189 ==
LOC: ANHED 20:05 → ANH3MED 20:13
PROVIDERS: Emergency Medicine; Nurse Practitioner; Admitting Provider Internal Medicine; Emergency Provider Physician Assistant; PCP Internal Medicine; Visit Provider Nurse Practitioner Adult Health
DX: J96.21 Acute and chronic respiratory failure with hypoxia (principal); J44.1 Chronic obstructive pulmonary disease with (acute) exacerbation; I50.32 Chronic diastolic (congestive) heart failure; I13.0 Hypertensive heart and chronic kidney disease with heart failure and stage 1 through stage 4 chronic kidney disease, or unspecified chronic kidney disease; G47.61 Periodic limb movement disorder; N18.30 Chronic kidney disease, stage 3 unspecified; I48.0 Paroxysmal atrial fibrillation; E78.5 Hyperlipidemia, unspecified; Z20.822 Contact with and (suspected) exposure to COVID-19; Z90.49 Acquired absence of other specified parts of digestive tract; Z95.5 Presence of coronary angioplasty implant and graft; Z90.710 Acquired absence of both cervix and uterus; Z87.891 Personal history of nicotine dependence; Z79.01 Long term (current) use of anticoagulants; Z99.81 Dependence on supplemental oxygen
CPT/HCPCS: 36415; 71045; 71046; 80048; 80053; 81001; 82803; 83880; 85025; 85027; 87040; 87086; 87088; 87637; 93005; 94640; 99213; 99285; A9270; G0463; J0456; J0696; J2919; J7512

== ENCOUNTER 2024-03-12 12:38 | Inpatient (IN) | payer MEDICARE, BC, SELFPAY ==
[2024-03-12] VITALS (22 sets, daily range): BP systolic 120–147; BP diastolic 56–124; PULSE 74–118; RESP 14–27; TEMP 36.5–36.6; O2SAT 88–98; BMI 26.5
--- NOTE | ~2024-03-12 | XR_ITS ---
XR chest 1V portable 03/20/2024 09:00 Indication: Fluid overload. Left pleural effusion. Procedure: AP portable chest Comparison: Comparison to multiple prior studies sequentially, with oldest reviewed study dated 05/2023. Findings: There are diffuse bilateral interstitial infiltrates. Cardiomegaly. There is atherosclerosi s and ectasia of the aorta. No significant effusion or pneumothorax. Impression: 1: Persistent diffuse bilateral interstitial infiltrates, most likely edema although chronic intersti tial lung disease cannot be excluded. Reviewed, dictated and finalized at location B. WARE CONFIGURATION MANAGER Impression: 1: Persistent diffuse bilateral interstitial infiltrates, most likely edema alt maryann chronic interstitial lung disease cannot be excluded.
--- NOTE | ~2024-03-12 | CT_ITS ---
CTA chest PE protocol Ordering provider: Ronna Wright MD History: 78 years Female with . ELEVATED DDIMER, DYSPNEA . Comparison: March 2023 Technique: CT angiogram chest was performed following timed intravenous injection of contrast. Thin s lice axial images and reformatted coronal images were obtained. Three dimensional reformatted images of the chest were also obtained using a [employer] workstation. . Automated exposure control and iterati ve reconstruction technique were employed. The dose-length product was 300.65 mGy-cm. 100 mL Omnipaque 350 was given IV. Findings: PULMONARY ARTERIES: No pulmonary embolus. VISUALIZED THORACIC INLET: Normal. Right breast implant. MEDIASTINUM: Aorta/coronary arteries: Mild atheromatous disease. Heart/other: The heart is not enlarged. Lymph nodes: Mediastinal lymphadenopathy with the largest lymph node is seen in the paratracheal area measuring 2.6 cm. Prevascular lymph nodes are also seen with the largest measures 2.4 cm. Subcarinal lymph node is also noted. Right hilar lymphadenopathy is seen. Small lymph nodes in the left hilum are also seen. LUNGS: Nodule is seen in the right middle lobe measuring 7 mm. 6 months follow-up advised. This nodule is la rger than the previous study. Interstitial thickening is seen in the apical area which may indicate pneumonitis versus edema. Minimal atelectatic changes seen in the middle lobe. Nodule is seen in the right apical area measuring 1 cm. No pulmonary masses. No pneumothorax. Bilateral large pleural effusion with adjacent atelectasis seen. . VISUALIZED UPPER ABDOMEN: Status post cholecystectomy. small left kidney cyst. Possible left kidney lower pole a stone. Otherwise, the visualized upper abdomen is normal. MUSCULOSKELETAL: Soft tissues: The superficial soft tissues are normal. Bones: Age appropriate degenerative changes of the spine. Old compression fracture is seen in T7. IMPRESSION: 1. No pulmonary embolism. 2. Bilateral large pleural effusion with adjacent atelectasis. 3. Mediastinal and bilateral hilar lymphadenopathy. 4. Nodule is seen in the right middle lobe and upper lobe. 6 months follow-up CT is advised. 5. Interstitial thickening in the apical areas which may indicate edema versus pneumonitis. Reviewed, dictated and finalized at location A. STOCK CARETAKER
--- NOTE | ~2024-03-12 | US_ITS ---
US renal BI Ordering provider: Eren Gross MD History: . ANMOL . Comparison: None. Technique: Ultrasound bilateral kidneys. Findings: RIGHT KIDNEY: Measures 9.4x 4.4x 4.3 cm in length which is normal in size. Small Simple cyst is seen in the lower pole. No renal mass or visualized echogenic stones. Otherwise, normal echotexture and co ntour. No hydronephrosis. Normal renal cortical thickness. LEFT KIDNEY: Measures 8.7x 5x 4.8 cm in length which is normal in size. No renal cysts. No renal mass or visualized echogenic stones. Otherwise, normal echotexture and contour. No hydronephrosis. Normal renal cortical thickness. BLADDER: Not distended. IMPRESSION: No definite abnormal. Small simple cyst in the right kidney lower pole. Reviewed, dictated and finalized at location A. NESS MANAGER [employer]ITY
--- NOTE | ~2024-03-12 | XR_ITS ---
EXAMINATION: XR chest 1V portable DATE: 03/15/2024 11:44 INDICATION: Hypoxia. TECHNIQUE: A single frontal view of the chest was obtained. COMPARISON: Chest view 03/12/2024, chest CT 03/12/2024 FINDINGS: There is a diffuse interstitial pattern in the lungs. There are airspace opacities in lower lung zones. There is a small right pleural effusion. No pneumothorax. Cardiomegaly is noted. IMPRESSION: 1. Diffuse lung disease with worsening at the lung bases, likely a combination of pulmonary edema and atelectasis. 2. Worsened small right pleural effusion. 3. Cardiomegaly. Reviewed, dictated and finalized at location A. CER LIEUTENANT
--- NOTE | ~2024-03-12 | XR_ITS ---
EXAMINATION: [id number] DATE: 03/19/2024 12:40 INDICATION: Status post right thoracentesis TECHNIQUE: frontal view of the chest was obtained. COMPARISON: Chest radiograph dated 04/08/2023 and 03/17/2024 FINDINGS: Again seen is a diffuse increased interstitial pattern throughout both lungs consistent with mild pul monary edema. Mild linear discoid atelectasis/scarring at the right costophrenic angle. Hazy and patc hy airspace opacity left lower lung zone with indistinctness to the left costophrenic angle consisten t with small left pleural effusion and associated basilar atelectasis and/or pneumonia. No pneumothor ax or evident residual right pleural effusion post right thoracentesis. Cardiomegaly. IMPRESSION: 1. No pneumothorax or evident residual right pleural effusion post right thoracentesis. 2. Likely congestive heart failure with cardiomegaly and persistent diffuse mild pulmonary edema. 2. Small left pleural effusion and associated basilar atelectasis and/or pneumonia. Reviewed, dictated and finalized at location A. A SERVICES DIRECTOR IMPRESSION: 1. No pneumothorax or evident residual right pleural effusion post right thorac entesis. 2. Likely congestive heart failure with cardiomegaly and persistent diffuse mil d pulmonary edema. 2. Small left pleural effusion and associated basilar atelectasis and/or pneumo nicolas.
--- NOTE | ~2024-03-12 | US_ITS ---
EXAMINATION: US thoracentesis DATE: 03/19/2024 12:41 INDICATION: Bilateral pleural effusions TECHNIQUE: The procedure and its risks and benefits were discussed with the patient. Potential risks discussed included bleeding, infection, and pneumothorax. The patient understood the risks and agreed to proceed. The skin was prepped and draped in sterile fashion. 1% lidocaine was used for local anes thesia. Under ultrasound guidance, a 5 Fr catheter with trochar was advanced into the right pleural e ffusion. Fluid was aspirated. The catheter was removed, and a dressing was applied. There were no imm ediate complications. FINDINGS: Ultrasound images demonstrate a small right pleural effusion and the catheter within the fluid. IMPRESSION: 1. Successful ultrasound-guided thoracentesis yielding 300 mL of kenneth-colored fluid. Reviewed, dictated and finalized at location A. ICATIONS ARCHITECT
--- NOTE | ~2024-03-12 | XR_ITS ---
EXAMINATION: XR chest 1V portable DATE: 03/12/2024 13:52 INDICATION: Shortness of breath. TECHNIQUE: A single frontal view of the chest was obtained. COMPARISON: Chest 2 views 12/04/2023, chest CT 03/30/2023 FINDINGS: There is a diffuse interstitial pattern in the lungs, consistent with pulmonary edema. Ther e is mild atelectasis at the lung bases. There are small pleural effusions. No pneumothorax. Cardiome vishnu is noted. IMPRESSION: 1. Mild pulmonary edema. 2. Small pleural effusions. 3. Cardiomegaly. Reviewed, dictated and finalized at location A. TOR CAR OPERATOR
--- NOTE | ~2024-03-12 | XR_ITS ---
EXAMINATION: XR chest 1V portable DATE: 03/17/2024 17:51 INDICATION: Increased oxygen requirement. TECHNIQUE: A single frontal view of the chest was obtained. COMPARISON: Chest view 03/15/2024, chest CT 03/12/2024 FINDINGS: There is a diffuse interstitial pattern in the lungs, consistent with mild pulmonary edema. There are airspace opacities in the lower lung zones, right worse than left. No pleural effusion or pneumothorax. Cardiomegaly is noted. IMPRESSION: 1. Airspace opacities in the lower lung zones with interval improvement, consistent with atelectasis versus pneumonia. 2. Mild pulmonary edema. 3. Cardiomegaly. Reviewed, dictated and finalized at location A. NT MANAGEMENT MANAGER IMPRESSION: 1. Airspace opacities in the lower lung zones with interval improvement, consis tent with atelectasis versus pneumonia. 2. Mild pulmonary edema. 3. Cardiomegaly.
--- NOTE | 2024-03-12 13:01 | ECG_ITS ---
Test Date: 2024-03-12 13:09:27 Measurements Intervals [place] Rate: 100 P: 0 LA: 0 QRS: 51 QRSD: 99 T: 146 QT: 423 QTc: 547 Interpretive Statements ATRIAL FIBRILLATION WITH RAPID VENTRICULAR RESPONSE WITH ABERRANT CONDUCTION OR VENTRICULAR PREMATURE COMPLEXES ST DEVIATION AND MODERATE T-WAVE ABNORMALITY, CONSIDER LATERAL ISCHEMIA [-0.1+ mV T-WAVE IN I/aVL/V5/V6] Compared to ECG 12/01/2023 17:08:52 Ventricular premature complex(es) now present Aberrant conduction of supraventricular beat(s) now present T-wave abnormality now present Possible ischemia now present Myocardial infarct finding no longer present ST (T wave) deviation no longer present Electronically Signed On 03-12-2024 14:29:51 RETAIL ANALYST by Ashok Villa M.D.
[2024-03-12 13:44] LABS: Basophils Percent Auto 0.6 % (0.2-1.2); Eosinophils Absolute Auto 0.1 K/mm3 (0-0.3); Eosinophils Percent Auto 0.8 % (0-4.4); Hemoglobin 9.9 g/dL (12.0-15.0); Immature Granulocyte Absolute 0.03 K/mm3 (0.00-0.031); Immature Granulocyte Percent A 0.4 % (0-0.5); Lymphocytes Absolute Auto 0.93 K/mm3 (0.9-3.2); Lymphocytes Percent Auto 13.1 % (18.3-44.2); Mean Corpuscular HGB Conc 30.9 g/dl (32-36); Mean Corpuscular Hemoglobin 29.1 pg (26-34); Mean Corpuscular Volume 94.1 fl (80-100); Mean Platelet Volume 9.1 fl (7.4-10.4); Monocytes Absolute Auto 0.7 K/mm3 (0.1-0.6); Monocytes Percent Auto 9.4 % (2.6-8.5); Neutrophils Absolute Auto 5.4 K/mm3 (1.3-6.7); Neutrophils Percent Auto 75.7 % (45.5-73.1); Platelet Count Result 186 k/mm3 (150-375); Red Cell Distribution Width 15.9 % (11.5-14.5); White Blood Count 7.1 K/mm3 (4.5-10.0)
[2024-03-12 13:45] LABS: Alveolar/Arterial O2 Gradient 546.6 mmHg; Base Excess ABG 5.3 mEq/l (+/-2.0); Fractional Inspired Oxygen 100 %; HCO3 ABG 29.4 mEq/l (22.0-26.0); Oxygen Content ABG 14.2 %vol (16.0-22.0); Oxygen Saturation ABG 98.7 % (95.0-100.0); Oxyhemoglobin 97.5 % THb (90.0-100.0); PO2 ABG 125.4 mmHg (80.0-100.0); PO2 FiO2 Ratio Arterial Blood 1.25 %; Total Hemoglobin 10.2 g/dL (12.0-18.0); pH ABG 7.473 (7.350-7.450)
[2024-03-12 13:46] LABS: Device NON-REBREATHER MASK; Site Drawn RIGHT BRACHIAL
--- NOTE | 2024-03-12 13:47 | PCRCNOTE ---
ABG late due to patient is a hard stick.
[2024-03-12 13:57] LABS: Alanine Aminotransferase 9 U/L (6-35); Albumin Level 4.3 g/dL (3.5-5.1); Alkaline Phosphatase 81 U/L (38-126); Anion Gap 7 mmol/L (4-12); Aspartate Amino Transferase 20 U/L (14-36); Bilirubin,Total 0.9 mg/dL (0.2-1.3); Blood Urea Nitrogen 12 mg/dL (7-17); Carbon Dioxide 34 mmol/L (22-30); Chloride 100 mmol/L (98-107); Estimated Glomerular Filt Rate > 60; Glucose 140 mg/dL (65-110); Partial Thromboplastin Time 40.9 Seconds (22.3-36.8); Potassium 3.2 mmol/L (3.4-5.0); Sodium 141 mmol/L (137-145)
[2024-03-12 13:58] LABS: INR 1.7; Prothrombin Time 20.6 Seconds (11.1-14.7)
[2024-03-12 14:04] LABS: NT Pro B Type Natriuretic Pept 2790 pg/mL (19.9-100)
[2024-03-12] MEDS: IPRATROPIUM 0.5 MG/ALBUTEROL SULFATE 2.5 MG AMPUL.NEB 3 ML INHALATION (14:07)
[2024-03-12 14:09] LABS: NT Pro B Type Natriuretic Pept 2940 pg/mL (19.9-100); Troponin I 0.014 ng/mL (0.000-0.034)
[2024-03-12 14:17] LABS: D Dimer 2.67 ug/mL (<0.48)
[2024-03-12 14:32] LABS: Influenza A QL RT-PCR Negative (Negative); Influenza B QL RT-PCR Negative (Negative); SARS-CoV-2 RNA PCR Negative (Negative)
--- NOTE | 2024-03-12 17:21 | ED_ITS ---
HPI - SOB/Dyspnea General Chief Complaint: Shortness of Breath/Dyspnea <Anabela Escamilla PA-C - Last Filed: 03/12/24 19:50> Stated Complaint: SOB, low 02 sats <PADMINI Chao Last Filed: 03/12/24 19:50> Time Seen by Provider: 03/12/24 15:06 <Anabela Escamilla PA-C - Last Filed: 03/12/24 19:50> Source: patient <PADMINI Chao Last Filed: 03/12/24 19:50> Mode of arrival: wheelchair <PADMINI Chao Last Filed: 03/12/24 19:50> Limitations: no limitations <Anabela Escamilla PA-C - Last Filed: 03/12/24 19:50> History of Present Illness HPI Narrative: This is a 78 year old female that presents to the ER for shortness of breath. Worsening over the last couple of weeks. Reports productive cough, increasing oxygen requirements. She has history of COPD and wears oxygen via NC chronically. Denies fevers or lower extremity edema. <PADMINI Chao Last Filed: 03/12/24 19:50> Related Data Home Medications: Home Medications Medication Instructions Recorded Confirmed apixaban 5 mg tablet (Eliquis) 5 mg PO BID 08/07/20 03/12/24 furosemide 40 mg tablet 60 mg PO DAILY 08/07/20 03/12/24 clopidogrel 75 mg tablet 75 mg PO DAILY 02/03/23 03/12/24 diltiazem HCl 240 mg 360 mg PO DAILY 10/05/23 03/12/24 capsule,extended release 24 hr albuterol sulfate 90 mcg/actuation 2 puff inhalation Q4H PRN 12/01/23 03/12/24 aerosol inhaler Shortness Of Breath Or Wheezing atorvastatin 10 mg tablet 10 mg PO HS 03/12/24 03/12/24 colestipol 1 gram tablet 2 g PO DAILY 03/12/24 03/12/24 hydrocodone 5 mg-acetaminophen 325 1 tablet PO Q6H PRN Pain 03/12/24 03/12/24 mg tablet ipratropium 0.5 mg-albuterol 3 mg 3 ml inhalation Q6H 03/12/24 03/12/24 (2.5 mg base)/3 mL nebulization soln <Anabela Escamilla PA-C - Last Filed: 03/12/24 19:50> Allergies/Adverse Reactions: Allergies Allergy/AdvReac Type Severity Reaction Status Date / Time steroids Allergy Mild Confusion Uncoded 03/12/24 22:32 <Anabela Escamilla PA-C - Last Filed: 03/12/24 19:50> Review of Systems Review of Systems: CONSTITUTIONAL: Denies fever CARDIOVASCULAR: Denies chest pain, or edema. RESPIRATORY: Reports cough and dyspnea. <PADMINI Chao Last Filed: 03/12/24 19:50> All systems reviewed & are unremarkable except as noted in HPI and below <Anabela Escamilla PA-C - Last Filed: 03/12/24 19:50> [facility] Past Medical History Medical History: Medical History Abdominal bloating Anxiety Chronic anticoagulation Chronic kidney disease, stage 3 Compression fracture of body of thoracic vertebra Diarrhea Hyperlipidemia Hypertension Minimal cognitive impairment Paroxysmal atrial fibrillation Trochanteric fracture <Anabela Escamilla PA-C - Last Filed: 03/12/24 19:50> Surgical History Surgical History: Surgical History History of appendectomy History of back surgery History of cardiac catheterization History of cholecystectomy History of coronary artery stent placement History of hysterectomy History of partial colectomy History of tonsillectomy <Anabela Escamilla PA-C - Last Filed: 03/12/24 19:50> Family History Family History: Family History (Updated 03/12/24 @ 22:25 by Madison Temple RN) Father Patient's father is Family history of emphysema Mother Patient's mother is Family history of chronic obstructive pulmonary disease Other Heart disease Heart failure <PADMINI Chao Last Filed: 03/12/24 19:50> Social History Social History: Social History Smoking packs per day: 1.5 Smoking cigarettes per day: 30.0 Years smoked: 55 Smoking pack-years: 82.50 Smoking status: Former smoker Tobacco type: cigarettes Second hand tobacco smoke exposure: No Smoking end date: 01/09/23 Alcohol intake: never Drinks per week: 0 Substance use: never Substance use type: does not use Do You Feel Safe in your Home?: Yes Lack of Transportation: No Lack of Food: Never True Current Housing: I Have Housing Concerned About Future Housing: No Difficulty Paying Gas/Electric Bills: No Difficulty Paying for Meds: No Currently Unemployed: No Education: Bachelor's Degree Difficulty w/ Childcare or Family Care: No Living arrangements: assisted living Additional living arrangements comments: currently living at [facility] in [place] Occupation/Education: retired Spiritual care concerns: No <Anabela Escamilla PA-C - Last Filed: 03/12/24 19:50> Exam Narrative: GENERAL: Elderly, well-nourished, and in no acute distress. HEAD: Normocephalic, atraumatic. EYES: EOMI. ENT: Nares clear, no rhinorrhea or epistaxis. Mucous membranes moist. Oropharynx without tonsillar hypertrophy exudate or other lesions. NECK: Supple. No adenopathy or masses. CHEST: No respiratory distress. Lung sounds diminished and coarse. Rales at the bases. Scattered wheezing No rhonchi HEART: Regular rate and rhythm. No murmur heard. Normal peripheral pulses. EXTREMITIES: Normal range of motion. No edema. SKIN: Warm, dry, no rash. NEURO: No focal deficits. Alert and oriented x3. PSYCH: Normal mood and affect <Anabela Escamilla PA-C - Last Filed: 03/12/24 19:50> Course Course Emergency Course: Patient updated on her workup and need for admission <MARYURI Chao - Last Filed: 03/12/24 19:50> BILINGUAL ADMINISTRATIVE ASSISTANT/PA Physician Supervision For this patient encounter, I reviewed the BILINGUAL ADMINISTRATIVE ASSISTANT or PA documentation, treatment plan, and medical decision making and/or I had [id number] time with this patient. I performed all aspects of the MDM as documented. <Ronna Wright MD - Last Filed: 03/13/24 18:45> Consultations Consultation #1: Spoke with hospitalist about patient and workup who accepts admission <Anabela Escamilla PA-C - Last Filed: 03/12/24 19:50> Date: 03/12/24 <Anabela Escamilla PA-C - Last Filed: 03/12/24 19:50> Vital Signs Vital signs: Vital Signs Temperature 97.7 F 03/12/24 12:40 Pulse Rate 74 03/12/24 12:40 Respiratory Rate 22 H 03/12/24 12:40 Blood Pressure 145/56 H 03/12/24 12:40 Pulse Oximetry 94 03/12/24 12:40 Oxygen Delivery Non-Rebreather Mask 03/12/24 12:40 Oxygen Flow Rate 15 03/12/24 12:40 Temperature 98.6 F 03/13/24 16:57 Pulse Rate 100 03/13/24 18:00 Respiratory Rate 20 03/13/24 16:57 Blood Pressure 148/66 H 03/13/24 16:57 Pulse Oximetry 93 03/13/24 16:57 Oxygen Delivery High Flow Nasal Cannula 03/13/24 16:00 Oxygen Flow Rate 11 03/13/24 16:00 <Anabela Escamilla PA-C - Last Filed: 03/12/24 19:50> Vital Signs Temperature 97.7 F 03/12/24 12:40 Pulse Rate 74 03/12/24 12:40 Respiratory Rate 22 H 03/12/24 12:40 Blood Pressure 145/56 H 03/12/24 12:40 Pulse Oximetry 94 03/12/24 12:40 Oxygen Delivery Non-Rebreather Mask 03/12/24 12:40 Oxygen Flow Rate 15 03/12/24 12:40 Temperature 98.6 F 03/13/24 16:57 Pulse Rate 100 03/13/24 18:00 Respiratory Rate 20 03/13/24 16:57 Blood Pressure 148/66 H 03/13/24 16:57 Pulse Oximetry 93 03/13/24 16:57 Oxygen Delivery High Flow Nasal Cannula 03/13/24 16:00 Oxygen Flow Rate 11 03/13/24 16:00 <Ronna Wright MD - Last Filed: 03/13/24 18:45> MDM - SOB/Dyspnea MDM Narrative Medical decision making narrative: Patient presents to the ER for worsening dyspnea. Patient with history COPD the, chronically wears COPD via nasal cannula. She has been increased to 12 L high-flow. Patient in atrial fibrillation with RVR. Given her home di ltiazem. Cbc without leukocytosis. Hemoglobin appears stable. Metabolic panel with mild hypokalemia. PO potassium ordered. Patient's lung sounds diminished and coarse. Given nebulizer treatment. Chest x-ray shows mild pulmonary edema, small pleural effusions. Cardiomegaly. BNP 2940. IV Lasix ordered. D-dimer elevated, CTA of the chest obtained. No PE. Bilateral large pleural effusions. Lymphadenopathy. Lung nodule which will need further imaging follow-up. Interstitial thickening in the apical areas which may indicate edema versus pneumonitis. Patient updated on her workup and need for admission. Spoke with hospitalist about patient and workup who accepts admission <MARYURI Chao - Last Filed: 03/12/24 19:50> Differential Diagnosis Differential diagnosis: Likely acute exacerbation of chronic obstructive airways disease, congestive heart failure, community acquired pneumonia and pulmonary embolism <Anabela Escamilla PA-C - Last Filed: 03/12/24 19:50> Lab Data Attestation: I reviewed the patient's lab results. <Anabela Escamilla PA-C - Last Filed: 03/12/24 19:50> Result diagrams: 03/13/24 03:21 03/13/24 03:21 <Anabela Escamilla PA-C - Last Filed: 03/12/24 19:50> Labs: Lab Results 03/12/24 03/12/24 03/12/24 Range/Units 13:26 13:26 13:26 WBC 7.1 (4.5-10.0) K/mm3 RBC 3.40 L (4.2-5.4) M/mm3 Hgb 9.9 L (12.0-15.0) g/dL Hct 32.0 L (37.0-47.0) % MCV 94.1 (80-100) fl MCH 29.1 (26-34) pg MCHC 30.9 L (32-36) g/dl RDW 15.9 H (11.5-14.5) % Plt Count 186 (150-375) k/mm3 MPV 9.1 (7.4-10.4) fl Immature Gran % (Auto) 0.4 (0-0.5) % Neut % (Auto) 75.7 H (45.5-73.1) % Lymph % (Auto) 13.1 L (18.3-44.2) % [place] % (Auto) 9.4 H (2.6-8.5) % Eos % (Auto) 0.8 (0-4.4) % Baso % (Auto) 0.6 (0.2-1.2) % Lymph # (Auto) 0.93 (0.9-3.2) K/mm3 [place] # (Auto) 0.7 H (0.1-0.6) K/mm3 Eos # (Auto) 0.1 (0-0.3) K/mm3 Baso # (Auto) 0.0 (0.0-0.1) K/mm3 Abs Immat Gran (auto) 0.03 (0.00-0.031) K/mm3 Absolute Neuts (auto) 5.4 (1.3-6.7) K/mm3 Absolute Nucleated RBC 0.000 (0.0-0.012) K/mm3 Nucleated RBC % 0.0 (0.0-0.2) % Platelet Estimate (Adequate) Hypochromasia Anisocytosis Ovalocytes Schistocytes PT 20.6 H (11.1-14.7) Seconds INR 1.7 APTT 40.9 H (22.3-36.8) Seconds D-Dimer 2.67 H Cancelled (<0.48) ug/mL Sodium 141 (137-145) mmol/L Potassium 3.2 L (3.4-5.0) mmol/L Chloride 100 (98-107) mmol/L Carbon Dioxide 34 H (22-30) mmol/L Anion Gap 7 (4-12) mmol/L BUN 12 D (7-17) mg/dL Creatinine 0.80 (0.7-1.0) mg/dL Estim Creat Clear Calc Not Reportable Estimated GFR > 60 (59 - ) Glucose 140 H (65-110) mg/dL Calcium 9.0 (8.4-10.2) mg/dL Magnesium 1.9 (1.6-2.3) mg/dL Total Bilirubin 0.9 (0.2-1.3) mg/dL AST 20 (14-36) U/L ALT 9 (6-35) U/L Alkaline Phosphatase 81 (38-126) U/L Troponin I 0.014 (0.000-0.034) ng/mL NT-Pro-B Natriuret Pep 2940 H 2790 H (19.9-100) pg/mL Total Protein 8.0 (6.3-8.2) g/dL Albumin 4.3 (3.5-5.1) g/dL Influenza A (RT-PCR) Negative (Negative) Influenza B (RT-PCR) Negative (Negative) SARS-CoV-2 RNA (RT-PCR) Negative (Negative) 03/13/24 Range/Units 03:21 WBC 7.1 (4.5-10.0) K/mm3 RBC 3.46 L (4.2-5.4) M/mm3 Hgb 9.7 L (12.0-15.0) g/dL Hct 32.7 L (37.0-47.0) % MCV 94.5 (80-100) fl MCH 28.0 (26-34) pg MCHC 29.7 L (32-36) g/dl RDW 16.1 H (11.5-14.5) % Plt Count 185 (150-375) k/mm3 MPV 9.2 (7.4-10.4) fl Immature Gran % (Auto) 0.4 (0-0.5) % Neut % (Auto) 70.6 (45.5-73.1) % Lymph % (Auto) 17.0 L (18.3-44.2) % [place] % (Auto) 9.5 H (2.6-8.5) % Eos % (Auto) 2.1 (0-4.4) % Baso % (Auto) 0.4 (0.2-1.2) % Lymph # (Auto) 1.20 (0.9-3.2) K/mm3 [place] # (Auto) 0.7 H (0.1-0.6) K/mm3 Eos # (Auto) 0.2 (0-0.3) K/mm3 Baso # (Auto) 0.0 (0.0-0.1) K/mm3 Abs Immat Gran (auto) 0.03 (0.00-0.031) K/mm3 Absolute Neuts (auto) 5.0 (1.3-6.7) K/mm3 Absolute Nucleated RBC 0.000 (0.0-0.012) K/mm3 Nucleated RBC % 0.0 (0.0-0.2) % Platelet Estimate Adequate (Adequate) Hypochromasia 1+ Anisocytosis 1+ Ovalocytes 1+ Schistocytes None seen PT (11.1-14.7) Seconds INR APTT (22.3-36.8) Seconds D-Dimer (<0.48) ug/mL Sodium 141 (137-145) mmol/L Potassium 3.3 L (3.4-5.0) mmol/L Chloride 100 (98-107) mmol/L Carbon Dioxide 34 H (22-30) mmol/L Anion Gap 7 (4-12) mmol/L BUN 10 (7-17) mg/dL Creatinine 0.90 (0.7-1.0) mg/dL Estim Creat Clear Calc 39 Estimated GFR 60 (59 - ) Glucose 109 (65-110) mg/dL Calcium 8.7 (8.4-10.2) mg/dL Magnesium (1.6-2.3) mg/dL Total Bilirubin 0.8 (0.2-1.3) mg/dL AST 20 (14-36) U/L ALT 8 (6-35) U/L Alkaline Phosphatase 87 (38-126) U/L Troponin I (0.000-0.034) ng/mL NT-Pro-B Natriuret Pep (19.9-100) pg/mL Total Protein 8.0 (6.3-8.2) g/dL Albumin 4.3 (3.5-5.1) g/dL Influenza A (RT-PCR) (Negative) Influenza B (RT-PCR) (Negative) SARS-CoV-2 RNA (RT-PCR) (Negative) <Anabela Escamilla PA-C - Last Filed: 03/12/24 19:50> Lab Results 03/12/24 03/12/24 03/12/24 Range/Units 13:26 13:26 13:26 WBC 7.1 (4.5-10.0) K/mm3 RBC 3.40 L (4.2-5.4) M/mm3 Hgb 9.9 L (12.0-15.0) g/dL Hct 32.0 L (37.0-47.0) % MCV 94.1 (80-100) fl MCH 29.1 (26-34) pg MCHC 30.9 L (32-36) g/dl RDW 15.9 H (11.5-14.5) % Plt Count 186 (150-375) k/mm3 MPV 9.1 (7.4-10.4) fl Immature Gran % (Auto) 0.4 (0-0.5) % Neut % (Auto) 75.7 H (45.5-73.1) % Lymph % (Auto) 13.1 L (18.3-44.2) % [place] % (Auto) 9.4 H (2.6-8.5) % Eos % (Auto) 0.8 (0-4.4) % Baso % (Auto) 0.6 (0.2-1.2) % Lymph # (Auto) 0.93 (0.9-3.2) K/mm3 [place] # (Auto) 0.7 H (0.1-0.6) K/mm3 Eos # (Auto) 0.1 (0-0.3) K/mm3 Baso # (Auto) 0.0 (0.0-0.1) K/mm3 Abs Immat Gran (auto) 0.03 (0.00-0.031) K/mm3 Absolute Neuts (auto) 5.4 (1.3-6.7) K/mm3 Absolute Nucleated RBC 0.000 (0.0-0.012) K/mm3 Nucleated RBC % 0.0 (0.0-0.2) % Platelet Estimate (Adequate) Hypochromasia Anisocytosis Ovalocytes Schistocytes PT 20.6 H (11.1-14.7) Seconds INR 1.7 APTT 40.9 H (22.3-36.8) Seconds D-Dimer 2.67 H Cancelled (<0.48) ug/mL Sodium 141 (137-145) mmol/L Potassium 3.2 L (3.4-5.0) mmol/L Chloride 100 (98-107) mmol/L Carbon Dioxide 34 H (22-30) mmol/L Anion Gap 7 (4-12) mmol/L BUN 12 D (7-17) mg/dL Creatinine 0.80 (0.7-1.0) mg/dL Estim Creat Clear Calc Not Reportable Estimated GFR > 60 (59 - ) Glucose 140 H (65-110) mg/dL Calcium 9.0 (8.4-10.2) mg/dL Magnesium 1.9 (1.6-2.3) mg/dL Total Bilirubin 0.9 (0.2-1.3) mg/dL AST 20 (14-36) U/L ALT 9 (6-35) U/L Alkaline Phosphatase 81 (38-126) U/L Troponin I 0.014 (0.000-0.034) ng/mL NT-Pro-B Natriuret Pep 2940 H 2790 H (19.9-100) pg/mL Total Protein 8.0 (6.3-8.2) g/dL Albumin 4.3 (3.5-5.1) g/dL Influenza A (RT-PCR) Negative (Negative) Influenza B (RT-PCR) Negative (Negative) SARS-CoV-2 RNA (RT-PCR) Negative (Negative) 03/13/24 Range/Units 03:21 WBC 7.1 (4.5-10.0) K/mm3 RBC 3.46 L (4.2-5.4) M/mm3 Hgb 9.7 L (12.0-15.0) g/dL Hct 32.7 L (37.0-47.0) % MCV 94.5 (80-100) fl MCH 28.0 (26-34) pg MCHC 29.7 L (32-36) g/dl RDW 16.1 H (11.5-14.5) % Plt Count 185 (150-375) k/mm3 MPV 9.2 (7.4-10.4) fl Immature Gran % (Auto) 0.4 (0-0.5) % Neut % (Auto) 70.6 (45.5-73.1) % Lymph % (Auto) 17.0 L (18.3-44.2) % [place] % (Auto) 9.5 H (2.6-8.5) % Eos % (Auto) 2.1 (0-4.4) % Baso % (Auto) 0.4 (0.2-1.2) % Lymph # (Auto) 1.20 (0.9-3.2) K/mm3 [place] # (Auto) 0.7 H (0.1-0.6) K/mm3 Eos # (Auto) 0.2 (0-0.3) K/mm3 Baso # (Auto) 0.0 (0.0-0.1) K/mm3 Abs Immat Gran (auto) 0.03 (0.00-0.031) K/mm3 Absolute Neuts (auto) 5.0 (1.3-6.7) K/mm3 Absolute Nucleated RBC 0.000 (0.0-0.012) K/mm3 Nucleated RBC % 0.0 (0.0-0.2) % Platelet Estimate Adequate (Adequate) Hypochromasia 1+ Anisocytosis 1+ Ovalocytes 1+ Schistocytes None seen PT (11.1-14.7) Seconds INR APTT (22.3-36.8) Seconds D-Dimer (<0.48) ug/mL Sodium 141 (137-145) mmol/L Potassium 3.3 L (3.4-5.0) mmol/L Chloride 100 (98-107) mmol/L Carbon Dioxide 34 H (22-30) mmol/L Anion Gap 7 (4-12) mmol/L BUN 10 (7-17) mg/dL Creatinine 0.90 (0.7-1.0) mg/dL Estim Creat Clear Calc 39 Estimated GFR 60 (59 - ) Glucose 109 (65-110) mg/dL Calcium 8.7 (8.4-10.2) mg/dL Magnesium (1.6-2.3) mg/dL Total Bilirubin 0.8 (0.2-1.3) mg/dL AST 20 (14-36) U/L ALT 8 (6-35) U/L Alkaline Phosphatase 87 (38-126) U/L Troponin I (0.000-0.034) ng/mL NT-Pro-B Natriuret Pep (19.9-100) pg/mL Total Protein 8.0 (6.3-8.2) g/dL Albumin 4.3 (3.5-5.1) g/dL Influenza A (RT-PCR) (Negative) Influenza B (RT-PCR) (Negative) SARS-CoV-2 RNA (RT-PCR) (Negative) <Ronna Wright MD - Last Filed: 03/13/24 18:45> ABG Data ABG results: 03/12/24 13:41 Puncture Site Right brachial ABG pH 7.473 H ABG pCO2 41.0 ABG pO2 125.4 H ABG PO2/FiO2 Ratio 1.25 ABG HCO3 29.4 H ABG O2 Saturation 98.7 ABG O2 Content 14.2 L ABG Base Excess 5.3 A-a Gradient 546.6 Oxyhemoglobin 97.5 Total Hemoglobin 10.2 L O2 Delivery Device Non-rebreather mask O2 Liters/Min 15.0 FiO2 100 <Anabela Escamilla PA-C - Last Filed: 03/12/24 19:50> 03/12/24 13:41 Puncture Site Right brachial ABG pH 7.473 H ABG pCO2 41.0 ABG pO2 125.4 H ABG PO2/FiO2 Ratio 1.25 ABG HCO3 29.4 H ABG O2 Saturation 98.7 ABG O2 Content 14.2 L ABG Base Excess 5.3 A-a Gradient 546.6 Oxyhemoglobin 97.5 Total Hemoglobin 10.2 L O2 Delivery Device Non-rebreather mask O2 Liters/Min 15.0 FiO2 100 <Ronna Wright MD - Last Filed: 03/13/24 18:45> Imaging Data Radiologist's impression: ITS Impressions Chest X-Ray 03/12/24 13:55 IMPRESSION: 1. Mild pulmonary edema. 2. Small pleural effusions. 3. Cardiomegaly. Chest CTA 03/12/24 17:42 IMPRESSION: 1. No pulmonary embolism. 2. Bilateral large pleural effusion with adjacent atelectasis. 3. Mediastinal and bilateral hilar lymphadenopathy. 4. Nodule is seen in the right middle lobe and upper lobe. 6 months follow-up CT is advised. 5. Interstitial thickening in the apical areas which may indicate edema versus pneumonitis. <Anabela Escamilla PA-C - Last Filed: 03/12/24 19:50> ECG Data EKG #1: ECG completion date: 03/12/24 <Anabela Escamilla PA-C - Last Filed: 03/12/24 19:50> EKG Interpretation: atrial fibrillation <PADMINI Chao Last Filed: 03/12/24 19:50> Critical Care Time Critical Care Time Critical Care Time: Yes <Anabela Escamilla PA-C - Last Filed: 03/12/24 19:50> Total Critical Care Time: 35 <Anabela Escamilla PA-C - Last Filed: 03/12/24 19:50> Discharge Plan Discharge Clinical Impression: Pleural effusion, Acute hypokalemia, Prolonged QT interval, Lung nodule Acute on chronic respiratory failure Qualifiers: Respiratory failure complication: hypoxia Qualified Code(s): J96.21 - Acute and chronic respiratory failure with hypoxia <Anabela Escamilla PA-C - Last Filed: 03/12/24 19:50> Patient Disposition: Still a Patient <PADMINI Chao Last Filed: 03/12/24 19:50> Condition: Serious <PADMINI Chao Last Filed: 03/12/24 19:50>
[2024-03-12 18:33] LABS: Magnesium 1.9 mg/dL (1.6-2.3)
[2024-03-12] MEDS: POTASSIUM CHLORIDE 20 MEQ ER TABLET 40 MEQ PO (19:48)
[2024-03-12] MEDS: dilTIAZem HCL CD 240 MG CAP.24HR PO (19:49)
[2024-03-12] MEDS: FUROSEMIDE INJ 100 MG/10 ML VIAL 80 MG IV PUSH (19:50)
--- NOTE | 2024-03-12 20:16 | P.HP_ITS ---
H&P: HPI History of Present Illness Date/Time: 03/12/24 20:16 Chief Complaint: 1. Shortness of breath Narrative: Maria Dolores Henry is an 78 yo F with a mHx significant for COPD, CAD s/p PCI, Afib, She presents after battling dyspnea for more than a week; it is aggravated by exertion, poorly alleviated by rest, associated wtih malaise, fatigue, anxiety, cough and poor functional status. she denies fevers, chills, dizziness, LOC, skin/joint changes; she denies sick contacts A previous tobacco user, she does not smoke/chew tobacco or drink alcohol. Work-up findings: WBC 7.1 Hb 9.7 PLT 185 AB.47, CO2 41, 125, 29 Na 141 K 3.1 Cl 100 HCO3 34 AG 7 BUn 10 Cr 0.9 GFr 39 BNP: 2790 Influenza A/B, COVID: Negative CTA chest: 1. No pulmonary embolism. 2. Bilateral large pleural effusion with adjacent atelectasis. 3. Mediastinal and bilateral hilar lymphadenopathy. 4. Nodule is seen in the right middle lobe and upper lobe. 6 months follow-up CT is advised. 5. Interstitial thickening in the apical areas which may indicate edema versus pneumonitis. Maria Dolores Henry will be admitted, evaluated and managed for acute hypoxia with pleural effusion. Review of Systems Constitutional: Constitutional: Reports difficulty sleeping, Reports fatigue and Reports lethargy ENT: Reports Normal hearing present, Denies dysphagia and Denies epistaxis Cardiovascular: Cardiovascular: Denies pedal edema and Denies leg edema Respiratory: Respiratory: Reports cough, Denies hemoptysis, Reports dyspnea and Reports dyspnea on exertion Gastrointestinal: Gastrointestinal: Denies hematochezia, Denies constipation, Denies heartburn and Denies diarrhea Genitourinary: Genitourinary: Denies urinary frequency, Denies urinary hesitancy and Denies urinary urgency Musculoskeletal: Musculoskeletal: Reports no additional musculoskeletal complaints Neurologic: Reports system reviewed and no additional complaints, except as do cumented, Denies abnormal gait, Denies confusion and Denies vertigo Psychiatric: Psychiatric: Reports no additional psychiatric complaints PMFSH Past Medical History Medical History Abdominal bloating Anxiety Chronic anticoagulation Chronic kidney disease, stage 3 Compression fracture of body of thoracic vertebra Diarrhea Hyperlipidemia Hypertension Minimal cognitive impairment Paroxysmal atrial fibrillation Trochanteric fracture Surgical History Surgical History History of appendectomy History of back surgery History of cardiac catheterization History of cholecystectomy History of coronary artery stent placement History of hysterectomy History of partial colectomy History of tonsillectomy Family History Family History (Updated 03/12/24 @ 22:25 by Madison Temple RN) Father Patient's father is Family history of emphysema Mother Patient's mother is Family history of chronic obstructive pulmonary disease Other Heart disease Heart failure Social History Social History Smoking packs per day: 1.5 Smoking cigarettes per day: 30.0 Years smoked: 55 Smoking pack-years: 82.50 Smoking status: Former smoker Tobacco type: cigarettes Second hand tobacco smoke exposure: No Smoking end date: 01/09/23 Alcohol intake: never Drinks per week: 0 Substance use: never Substance use type: does not use Do You Feel Safe in your Home?: Yes Lack of Transportation: No Lack of Food: Never True Current Housing: I Have Housing Concerned About Future Housing: No Difficulty Paying Gas/Electric Bills: No Difficulty Paying for Meds: No Currently Unemployed: No Education: Bachelor's Degree Difficulty w/ Childcare or Family Care: No Living arrangements: assisted living Additional living arrangements comments: currently living at [facility] in [place] Occupation/Education: retired Spiritual care concerns: No Meds Home Medications and Allergies Home Medications Medication Instructions Recorded Confirmed Type apixaban 5 mg tablet (Eliquis) 5 mg PO BID 08/07/20 03/12/24 History furosemide 40 mg tablet 60 mg PO DAILY 08/07/20 03/12/24 History clopidogrel 75 mg tablet 75 mg PO DAILY 02/03/23 03/12/24 History diltiazem HCl 240 mg 360 mg PO DAILY 10/05/23 03/12/24 History capsule,extended release 24 hr sertraline 100 mg tablet 200 mg PO DAILY #180 tabs 11/14/23 03/12/24 Rx albuterol sulfate 90 mcg/actuation 2 puff inhalation Q4H PRN 12/01/23 03/12/24 History aerosol inhaler Shortness Of Breath Or Wheezing alprazolam 1 mg tablet (Xanax) 1 mg PO QHS #90 tabs 02/27/24 03/12/24 Rx amiodarone 100 mg tablet 100 mg PO DAILY 03/12/24 03/12/24 History atorvastatin 10 mg tablet 10 mg PO HS 03/12/24 03/12/24 History colestipol 1 gram tablet 2 g PO DAILY 03/12/24 03/12/24 History hydrocodone 5 mg-acetaminophen 325 1 tablet PO Q6H PRN Pain 03/12/24 03/12/24 History mg tablet ipratropium 0.5 mg-albuterol 3 mg 3 ml inhalation Q6H 03/12/24 03/12/24 History (2.5 mg base)/3 mL nebulization soln Allergies Allergy/AdvReac Type Severity Reaction Status Date / Time steroids Allergy Mild Confusion Uncoded 03/12/24 22:32 Vital Signs Vital Signs - 24 hr 03/12/24 12:40 03/12/24 12:59 03/12/24 14:06 Temperature 97.7 F Pulse Rate 74 115 H Respiratory Rate 22 H 22 H Blood Pressure 145/56 H 146/68 H Pulse Oximetry 94 88 L 93 Oxygen Delivery Non-Rebreather Mask High Flow Therapy with Na Oxygen Flow Rate 15 12 03/12/24 14:07 03/12/24 13:56 03/12/24 14:12 Temperature Pulse Rate 110 H 115 H Respiratory Rate 22 H 22 H Blood Pressure Pulse Oximetry 98 Oxygen Delivery Non-Rebreather Mask Oxygen Flow Rate 15 03/12/24 14:42 03/12/24 14:47 03/12/24 14:47 Temperature Pulse Rate 106 H 111 H Respiratory Rate 21 H 14 Blood Pressure 144/86 H 130/89 Pulse Oximetry 93 93 93 Oxygen Delivery High Flow Nasal Cannula Oxygen Flow Rate 12 03/12/24 15:01 03/12/24 15:17 03/12/24 15:31 Temperature Pulse Rate 115 H 105 H 104 H Respiratory Rate 21 H 15 15 Blood Pressure 123/93 H 131/105 H 147/124 H Pulse Oximetry 90 91 Oxygen Delivery Oxygen Flow Rate 03/12/24 15:32 03/12/24 15:41 03/12/24 15:45 Temperature Pulse Rate 106 H 113 H 114 H Respiratory Rate 18 24 H 16 Blood Pressure 120/99 H Pulse Oximetry 91 91 90 Oxygen Delivery Oxygen Flow Rate 03/12/24 15:48 03/12/24 16:00 03/12/24 16:02 Temperature Pulse Rate 110 H 103 H 109 H Respiratory Rate 14 27 H 22 H Blood Pressure 141/60 H 145/73 H Pulse Oximetry 92 91 94 Oxygen Delivery Oxygen Flow Rate H&P: Results Labs Labs: Short CBC 03/12/24 Range/Units 13:26 WBC 7.1 (4.5-10.0) K/mm3 Hgb 9.9 L (12.0-15.0) g/dL Hct 32.0 L (37.0-47.0) % Plt Count 186 (150-375) k/mm3 BMP 03/12/24 13:26 Sodium 141 Potassium 3.2 L Chloride 100 Carbon Dioxide 34 H BUN 12 D Creatinine 0.80 Glucose 140 H Calcium 9.0 Cardiac Enzymes 03/12/24 Range/Units 13:26 Troponin I 0.014 (0.000-0.034) ng/mL Liver Function 03/12/24 Range/Units 13:26 Total Bilirubin 0.9 (0.2-1.3) mg/dL AST 20 (14-36) U/L ALT 9 (6-35) U/L Alkaline Phosphatase 81 (38-126) U/L Albumin 4.3 (3.5-5.1) g/dL Assessment and Plan Assessment and plan (1) Acute on chronic respiratory failure: Qualifiers: Respiratory failure complication: hypoxia Qualified Code(s): J96.21 - Acute and chronic respiratory failure with hypoxia Code(s): J96.20 - Acute and chronic respiratory failure, unspecified whether with hypoxia or hypercapnia Status: Acute (2) Pleural effusion: Code(s): J90 - Pleural effusion, not elsewhere classified Status: Acute (3) Acute hypokalemia: Code(s): E87.6 - Hypokalemia Status: Acute Plan Acute and principal conditions 1. Acute on chronic hypoxia 2. Bilateral pleural effusions 3. RML, RUL nodules 4. Probable CAP Zosyn; thoracentesis; Supplemental oxygen DuoNebs Bilateral thoracentesis f/u with PCP/Pulm for nodules Chronic and stable conditions 1. Chronic A-fib 2. Chronic Hypoxia. on Supplemental oxygen 3. Dyslipidemia. 4. CKD3 5. Hypertension Code status: Full Nutrition. CLD VTE prophylaxis. SCDs Hospitalist MIPS Advance Care Plan I have confirmed that the patient's Advanced Care Plan is present, code status is documented, or surrogate decision maker is listed in patient medical record.: Yes Medication Reconciliation I have utilized all available resources to obtain, update and review the patients current medications (includes all prescriptions, OTC, herbals, cannabis, and nutritional supplements).: Yes
[2024-03-12] MEDS: LEVALBUTEROL NEB 1.25 MG/3 ML 0.63 MG INHALATION (20:46)
[2024-03-12] MEDS: IPRATROPIUM BR 0.02% INH SOLN 0.5 MG/2.5 ML VIAL INHALATION (20:49)
[2024-03-12] MEDS: ALPRAZolam (*CRX) 0.5 MG TABLET PO (21:40)
--- NOTE | 2024-03-12 22:00 | ADMGEN ---
This patient, Maria Dolores Henry, was admitted to IMU Room 202-01. Patient/family oriented to hospital policies and general routines including ID bracelet, bed and alarms, visiting hours, pain management, procedures, bathroom and other care routines, personal items, smoking policy, room service/diet, and visiting hours. Information on how to activate the Rapid Response Team has been discussed. Patient/Family are encouraged to report perceived risks to care and to ask questions if they do not understand what they are told or what they should do.
[2024-03-13] VITALS (28 sets, daily range): BP systolic 92–148; BP diastolic 55–66; PULSE 88–127; RESP 12–28; TEMP 36.4–37; O2SAT 92–98
[2024-03-13] MEDS: IPRATROPIUM BR 0.02% INH SOLN 0.5 MG/2.5 ML VIAL INHALATION ×4 (02:18→20:36)
[2024-03-13] MEDS: LEVALBUTEROL NEB 1.25 MG/3 ML 0.63 MG INHALATION ×4 (02:18→20:36)
[2024-03-13 04:15] LABS: Basophils Percent Auto 0.4 % (0.2-1.2); Eosinophils Absolute Auto 0.2 K/mm3 (0-0.3); Eosinophils Percent Auto 2.1 % (0-4.4); Hematocrit 32.7 % (37.0-47.0); Hemoglobin 9.7 g/dL (12.0-15.0); Immature Granulocyte Absolute 0.03 K/mm3 (0.00-0.031); Immature Granulocyte Percent A 0.4 % (0-0.5); Mean Corpuscular HGB Conc 29.7 g/dl (32-36); Mean Corpuscular Volume 94.5 fl (80-100); Mean Platelet Volume 9.2 fl (7.4-10.4); Monocytes Absolute Auto 0.7 K/mm3 (0.1-0.6); Monocytes Percent Auto 9.5 % (2.6-8.5); Neutrophils Percent Auto 70.6 % (45.5-73.1); Platelet Count Result 185 k/mm3 (150-375); Red Blood Count 3.46 M/mm3 (4.2-5.4); Red Cell Distribution Width 16.1 % (11.5-14.5); White Blood Count 7.1 K/mm3 (4.5-10.0)
[2024-03-13 04:31] LABS: Alanine Aminotransferase 8 U/L (6-35); Albumin Level 4.3 g/dL (3.5-5.1); Alkaline Phosphatase 87 U/L (38-126); Anion Gap 7 mmol/L (4-12); Aspartate Amino Transferase 20 U/L (14-36); Bilirubin,Total 0.8 mg/dL (0.2-1.3); Blood Urea Nitrogen 10 mg/dL (7-17); Calcium 8.7 mg/dL (8.4-10.2); Carbon Dioxide 34 mmol/L (22-30); Chloride 100 mmol/L (98-107); Estimated CRCL calculation 39 ml/min; Estimated Glomerular Filt Rate 60; Glucose 109 mg/dL (65-110); Potassium 3.3 mmol/L (3.4-5.0); Sodium 141 mmol/L (137-145)
[2024-03-13 04:56] LABS: Anisocytosis 1+; Hypochromasia 1+; Platelet Estimate Adequate (Adequate)
[2024-03-13 04:57] LABS: Ovalocytes 1+; Schistocytes None Seen
[2024-03-13] MEDS: PIPERACILLN/TAZ 3.375GM/NS50ML 3.375 GM/50 ML BAG IVPB ×3 (08:00→20:20)
[2024-03-13] MEDS: SERTRALINE HCL 50 MG TABLET 200 MG PO (08:01)
[2024-03-13] MEDS: dilTIAZem HCL CD 180 MG CAP.24HR 360 MG PO (08:01)
[2024-03-13] MEDS: CLOPIDOGREL BISULFATE 75 MG TABLET PO (08:01)
[2024-03-13] MEDS: POTASSIUM CHLORIDE 20 MEQ ER TABLET 40 MEQ PO ×2 (08:57→17:49)
[2024-03-13] MEDS: COLESTIPOL HCL 1 GM TABLET 2 GM PO (08:58)
--- NOTE | 2024-03-13 13:25 | P.PNIM_ITS ---
Progress Note: A&P Assessment and Plan (1) Acute on chronic respiratory failure: Qualifiers: Respiratory failure complication: hypoxia Qualified Code(s): J96.21 - Acute and chronic respiratory failure with hypoxia Code(s): J96.20 - Acute and chronic respiratory failure, unspecified whether with hypoxia or hypercapnia Status: Acute (2) Pleural effusion: Code(s): J90 - Pleural effusion, not elsewhere classified Status: Acute (3) Acute hypokalemia: Code(s): E87.6 - Hypokalemia Status: Acute Plan THIS IS THE 78-YEAR-OLD FEMALE COUPLE OF WEEKS. S PRODUCTIVE COUGH. SIGNING OXYGEN REQUIREMENT. SHE HAS HISTORY OF COPD AND WEARS OXYGEN VIA NASAL CANNULA CHRONICALLY. NO LEG SWELLING CHILLS. ON ED EVALUATION SHE WAS HYPOXIC NEEDING HIGH-FLOW OXYGEN CANNULA BLOOD PRESSURE WAS IN ATRIAL FIBRILLATION WITH RAPID VENTRICULAR RATE. SHE NORMALLY USES L AT REST TREATED WITH ACTIVITY AND 5 L AT NIGHT. LABORATORY EVALUATION SHOWED NORMAL WBC OF 7.1 ANEMIA OF 9.9 MILDLY HYPOKALEMIC OTHERWISE ELECTROLYTES WERE UNREMARKABLE. RENAL FUNCTION WAS ADEQUATE. D-DIMER WAS ELEVATED AT 2.67. TROPONIN WAS NEGATIVE AT 0.014 BNP WAS ELEVATED AT 940. INFLUENZA RSV AND COVID SWAB WAS NEGATIVE. ABG 7.47/41/125/29. CHEST X-RAY SHOWED MILD PULMONARY EDEMA SMALL PLEURAL EFFUSIONS AND CARDIOMEGALY. A CTA WAS DONE WHICH SHOWED NO PE BUT BILATERAL LARGE PLEURAL EFFUSION WITH ATELECTASIS O THIS IS ADJACENT ATELECTASIS AND MEDIASTINAL AND BILATERAL HILAR LYMPHADENOPATHY. NODULE SEEN IN RIGHT MIDDLE LOBE AND UPPER LOBE SIX-MONTH FOLLOW-UP CT ADVISED. INTERSTITIAL THICKENING IN THE APICAL AREAS WHICH MAY INDICATE EDEMA VERSUS PNEUMONITIS. SHE WAS GIVEN LASIX IN THE ER. WILL CONTINUE WITH LASIX SUSPECT ACUTE ON CHRONIC CONGESTIVE HEART FAILURE. CHECK ECHOCARDIOGRAM. ECHO 04/02 WITH 60-65% GRADE 2 DIASTOLIC DYSFUNCTION MODERATE AORTIC VALVE STENOSIS MODERATE MR MILD PULMONARY HYPERTENSION. SUPPLEMENTAL OXYGEN FOR HYPOXIC RESPIRATORY FAILURE ANTI PER NEEDED. THORACENTESIS PLANNED WHICH MIGHT HELP WITH HYPOXIA. WILL ALSO SEND FOR CYTOLOGY. PLEURAL FLUID ANALYSIS EMPIRICALLY ON ANTIBIOTICS FOR POSSIBLE PNEUMONIA. ADD DOXYCYCLINE FOR ATYPICAL COVERAGE CHRONIC AFIB ACUTE ON CHRONIC HYPOXIC RESPIRATORY FAILURE HYPERTENSION HYPERLIPIDEMIA CHRONIC ANEMIA STABLE COUNT NO SIGNS OF BLEEDING CKD STAGE 3 PULMONARY NODULES CHRONIC ANTICOAGULATION WITH ELIQUIS DVT PROPHYLAXIS ON ELIQUIS CODE STATUS DO NOT RESUSCITATE Subjective Date/time seen: 03/13/24 13:25 Interval history: PATIENT PRESENTED WITH SHORTNESS OF BREATH. BREATHING IS A LITTLE BETTER. OXYGEN REQUIREMENT HAS LOWERED TO 11 LITERS/MINUTE. PLAN FOR THORACENTESIS. REPORTS SOME COUGH WHICH IS CHRONIC. DENIES ANY LEG SWELLING. Review of Systems Review of Systems: All systems reviewed & are unremarkable except as noted in HPI and below Exam Narrative: GENERAL: Elderly, well-nourished, and in no acute distress. HEAD: Normocephalic, atraumatic. EYES: EOMI. ENT: Nares clear, no rhinorrhea or epistaxis. Mucous membranes moist. NECK: Supple. No adenopathy or masses. CHEST: No respiratory distress. Lung sounds diminished and coarse. Rales at the bases. Scattered wheezing No rhonchi HEART: Regular rate and rhythm. No murmur heard. Normal peripheral pulses. EXTREMITIES: Normal range of motion. No edema. SKIN: Warm, dry, no rash. NEURO: No focal deficits. Alert and oriented x3. PSYCH: Normal mood and affect Objective Data Vital Signs Vital Signs: Vital Signs - 24 hr 03/12/24 14:06 03/12/24 14:07 03/12/24 13:56 Temperature Pulse Rate 110 H Respiratory Rate 22 H Blood Pressure Pulse Oximetry 93 98 Oxygen Delivery High Flow Therapy with Na Non-Rebreather Mask Oxygen Flow Rate 12 15 03/12/24 14:12 03/12/24 14:42 03/12/24 14:47 Temperature Pulse Rate 115 H 106 H Respiratory Rate 22 H 21 H Blood Pressure 144/86 H Pulse Oximetry 93 93 Oxygen Delivery High Flow Nasal Cannula Oxygen Flow Rate 12 03/12/24 14:47 03/12/24 15:01 03/12/24 15:17 Temperature Pulse Rate 111 H 115 H 105 H Respiratory Rate 14 21 H 15 Blood Pressure 130/89 123/93 H 131/105 H Pulse Oximetry 93 90 91 Oxygen Delivery Oxygen Flow Rate 03/12/24 15:31 03/12/24 15:32 03/12/24 15:41 Temperature Pulse Rate 104 H 106 H 113 H Respiratory Rate 15 18 24 H Blood Pressure 147/124 H 120/99 H Pulse Oximetry 91 91 Oxygen Delivery Oxygen Flow Rate 03/12/24 15:45 03/12/24 15:48 03/12/24 16:00 Temperature Pulse Rate 114 H 110 H 103 H Respiratory Rate 16 14 27 H Blood Pressure 141/60 H Pulse Oximetry 90 92 91 Oxygen Delivery Oxygen Flow Rate 03/12/24 16:02 03/12/24 20:50 03/12/24 21:06 Temperature Pulse Rate 109 H 114 H 113 H Respiratory Rate 22 H 22 H 22 H Blood Pressure 145/73 H Pulse Oximetry 94 Oxygen Delivery Oxygen Flow Rate 03/12/24 21:16 03/12/24 23:23 03/12/24 23:53 Temperature 97.8 F Pulse Rate 114 H 118 H Respiratory Rate 26 H 26 H Blood Pressure 139/112 H 128/80 Pulse Oximetry 93 93 92 Oxygen Delivery High Flow Nasal Cannula Oxygen Flow Rate 12 03/13/24 00:00 03/13/24 00:00 03/13/24 02:00 Temperature Pulse Rate 96 93 Respiratory Rate Blood Pressure Pulse Oximetry 97 Oxygen Delivery High Flow Nasal Cannula Oxygen Flow Rate 13 03/13/24 02:19 03/13/24 02:22 03/13/24 02:28 Temperature Pulse Rate 115 H 88 Respiratory Rate 20 20 Blood Pressure Pulse Oximetry 95 Oxygen Delivery High Flow Nasal Cannula Oxygen Flow Rate 13 03/13/24 04:02 03/13/24 04:00 03/13/24 04:00 Temperature 97.7 F Pulse Rate 91 99 Respiratory Rate 24 H Blood Pressure 132/66 Pulse Oximetry 92 96 Oxygen Delivery High Flow Nasal Cannula Oxygen Flow Rate 11 03/13/24 06:00 03/13/24 07:08 03/13/24 07:08 Temperature Pulse Rate 88 118 H Respiratory Rate 20 Blood Pressure Pulse Oximetry 94 Oxygen Delivery High Flow Nasal Cannula Oxygen Flow Rate 12 03/13/24 07:25 03/13/24 07:36 03/13/24 08:00 Temperature 98.2 F Pulse Rate 105 H 111 H 107 H Respiratory Rate 20 12 12 Blood Pressure 131/55 L Pulse Oximetry 92 92 Oxygen Delivery High Flow Nasal Cannula Oxygen Flow Rate 11 03/13/24 08:00 03/13/24 10:00 03/13/24 12:00 Temperature Pulse Rate 111 H 104 H 104 H Respiratory Rate 12 Blood Pressure Pulse Oximetry 92 Oxygen Delivery High Flow Nasal Cannula Oxygen Flow Rate 11 03/13/24 12:00 03/13/24 12:15 Temperature 98.3 F Pulse Rate 118 H 105 H Respiratory Rate 28 H Blood Pressure 92/64 L Pulse Oximetry 95 Oxygen Delivery Oxygen Flow Rate Intake/Output Intake/Output: Intake & Output 03/10/24 03/11/24 03/12/24 03/13/24 23:59 23:59 23:59 23:59 Output Total 900 Balance -900 Meds/Results Medications: Active Medications Generic Name Dose Route Start Last Admin Trade Name Freq PRN Reason Stop Dose Admin Acetaminophen 650 mg 03/12/24 20:10 Acetaminophen 325 Mg Tablet PO Q4H PRN Mild Pain (1-3) or Fever Albuterol/Ipratropium 3 ml 03/12/24 20:15 Ipratropium 0.5 Mg/Albuterol Sulfate 2.5 Mg Ampul.Neb 3 Ml INHALATION Q4H PRN SHORTNESS OF BREATH Alprazolam 1 mg 03/13/24 21:00 Alprazolam (*Crx) 0.5 Mg Tablet PO QHS HEIDE Amiodarone HCl 100 mg 03/13/24 09:00 03/13/24 07:59 Amiodarone Hcl 100 Mg Tablet PO Not Given DAILY HEIDE Apixaban 5 mg 03/13/24 21:00 Apixaban 5 Mg Tablet PO Q12HR HEIDE Atorvastatin Calcium 10 mg 03/13/24 21:00 Atorvastatin 10 Mg Tablet PO HS HEIDE Bisacodyl 5 mg 03/12/24 20:10 Bisacodyl 5 Mg Tablet Ec PO DAILY PRN Constipation Clopidogrel Bisulfate 75 mg 03/13/24 09:00 03/13/24 08:01 Clopidogrel Bisulfate 75 Mg Tablet PO 75 mg DAILY HEIDE Administration Colestipol HCl 2 gm 03/13/24 09:00 03/13/24 08:58 Colestipol Hcl 1 Gm Tablet PO 2 gm DAILY HEIDE Administration Diltiazem HCl 360 mg 03/13/24 09:00 03/13/24 08:01 Diltiazem Hcl Cd 180 Mg Cap.24hr PO 360 mg DAILY HEIDE Administration Piperacillin/Tazobactam/Dextrose 3.375 gm in 50 mls @ 100 mls/hr 03/13/24 08:00 03/13/24 08:00 Zosyn 3.375 Gm/Ns 50 Ml IVPB 100 mls/hr Q6H HEIDE Administration Ipratropium [place] 0.5 mg 03/12/24 20:00 03/13/24 07:08 Ipratropium Br 0.02% Inh Soln 0.5 Mg/2.5 Ml Vial INHALATION 0.5 mg Q6HRT HEIDE Administration Levalbuterol HCl 0.63 mg 03/12/24 20:00 03/13/24 07:08 Levalbuterol Neb 1.25 Mg/3 Ml INHALATION 0.63 mg Q6HRT HEIDE Administration Potassium Chloride 40 meq 03/13/24 09:00 03/13/24 08:57 Potassium Chloride 20 Meq Er Tablet PO 03/13/24 17:01 40 meq BID HEIDE Administration Sertraline HCl 200 mg 03/13/24 09:00 03/13/24 08:01 Sertraline Hcl 50 Mg Tablet PO 200 mg DAILY HEIDE Administration Radiology Results: ITS Impressions Chest X-Ray 03/12/24 13:55 IMPRESSION: 1. Mild pulmonary edema. 2. Small pleural effusions. 3. Cardiomegaly. Chest CTA 03/12/24 17:42 IMPRESSION: 1. No pulmonary embolism. 2. Bilateral large pleural effusion with adjacent atelectasis. 3. Mediastinal and bilateral hilar lymphadenopathy. 4. Nodule is seen in the right middle lobe and upper lobe. 6 months follow-up CT is advised. 5. Interstitial thickening in the apical areas which may indicate edema versus pneumonitis. Labs Labs: Laboratory Results - last 24 hr 03/12/24 03/12/24 03/12/24 13:26 13:26 13:26 WBC 7.1 RBC 3.40 L Hgb 9.9 L Hct 32.0 L MCV 94.1 MCH 29.1 MCHC 30.9 L RDW 15.9 H Plt Count 186 MPV 9.1 Immature Gran % (Auto) 0.4 Neut % (Auto) 75.7 H Lymph % (Auto) 13.1 L [place] % (Auto) 9.4 H Eos % (Auto) 0.8 Baso % (Auto) 0.6 Lymph # (Auto) 0.93 [place] # (Auto) 0.7 H Eos # (Auto) 0.1 Baso # (Auto) 0.0 Abs Immat Gran (auto) 0.03 Absolute Neuts (auto) 5.4 Absolute Nucleated RBC 0.000 Nucleated RBC % 0.0 Platelet Estimate Hypochromasia Anisocytosis Ovalocytes Schistocytes PT 20.6 H INR 1.7 APTT 40.9 H D-Dimer 2.67 H Cancelled Puncture Site ABG pH ABG pCO2 ABG pO2 ABG PO2/FiO2 Ratio ABG HCO3 ABG O2 Saturation ABG O2 Content ABG Base Excess A-a Gradient Oxyhemoglobin Total Hemoglobin O2 Delivery Device O2 Liters/Min FiO2 Sodium 141 Potassium 3.2 L Chloride 100 Carbon Dioxide 34 H Anion Gap 7 BUN 12 D Creatinine 0.80 Estim Creat Clear Calc Not Reportable Estimated GFR > 60 Glucose 140 H Calcium 9.0 Magnesium 1.9 Total Bilirubin 0.9 AST 20 ALT 9 Alkaline Phosphatase 81 Troponin I 0.014 NT-Pro-B Natriuret Pep 2940 H 2790 H Total Protein 8.0 Albumin 4.3 Influenza A (RT-PCR) Negative Influenza B (RT-PCR) Negative SARS-CoV-2 RNA (RT-PCR) Negative 03/12/24 03/13/24 13:41 03:21 WBC 7.1 RBC 3.46 L Hgb 9.7 L Hct 32.7 L MCV 94.5 MCH 28.0 MCHC 29.7 L RDW 16.1 H Plt Count 185 MPV 9.2 Immature Gran % (Auto) 0.4 Neut % (Auto) 70.6 Lymph % (Auto) 17.0 L [place] % (Auto) 9.5 H Eos % (Auto) 2.1 Baso % (Auto) 0.4 Lymph # (Auto) 1.20 [place] # (Auto) 0.7 H Eos # (Auto) 0.2 Baso # (Auto) 0.0 Abs Immat Gran (auto) 0.03 Absolute Neuts (auto) 5.0 Absolute Nucleated RBC 0.000 Nucleated RBC % 0.0 Platelet Estimate Adequate Hypochromasia 1+ Anisocytosis 1+ Ovalocytes 1+ Schistocytes None seen PT INR APTT D-Dimer Puncture Site Right brachial ABG pH 7.473 H ABG pCO2 41.0 ABG pO2 125.4 H ABG PO2/FiO2 Ratio 1.25 ABG HCO3 29.4 H ABG O2 Saturation 98.7 ABG O2 Content 14.2 L ABG Base Excess 5.3 A-a Gradient 546.6 Oxyhemoglobin 97.5 Total Hemoglobin 10.2 L O2 Delivery Device Non-rebreather mask O2 Liters/Min 15.0 FiO2 100 Sodium 141 Potassium 3.3 L Chloride 100 Carbon Dioxide 34 H Anion Gap 7 BUN 10 Creatinine 0.90 Estim Creat Clear Calc 39 Estimated GFR 60 Glucose 109 Calcium 8.7 Magnesium Total Bilirubin 0.8 AST 20 ALT 8 Alkaline Phosphatase 87 Troponin I NT-Pro-B Natriuret Pep Total Protein 8.0 Albumin 4.3 Influenza A (RT-PCR) Influenza B (RT-PCR) SARS-CoV-2 RNA (RT-PCR)
[2024-03-13] MEDS: ACETAMINOPHEN 325 MG TABLET 650 MG PO (17:47)
[2024-03-13] MEDS: DOXYCYCLINE 100 MG/NS 100 ML 100 MG/100 ML BAG IVPB (18:06)
[2024-03-13] MEDS: FUROSEMIDE INJ 40 MG/4 ML VIAL IV PUSH (18:09)
--- NOTE | 2024-03-13 18:18 | PC.NURSE ---
BP 142/58 prior to giving Lasix.
[2024-03-13] MEDS: APIXABAN 5 MG TABLET PO (20:20)
[2024-03-13] MEDS: ATORVASTATIN 10 MG TABLET PO (20:20)
[2024-03-13] MEDS: ALPRAZolam (*CRX) 0.5 MG TABLET 1 MG PO (20:20)
[2024-03-13 20:22] LABS: Anion Gap 9 mmol/L (4-12); Blood Urea Nitrogen 12 mg/dL (7-17); Carbon Dioxide 29 mmol/L (22-30); Chloride 101 mmol/L (98-107); Estimated CRCL calculation 39 ml/min; Estimated Glomerular Filt Rate 60; Glucose 112 mg/dL (65-110); Potassium 3.8 mmol/L (3.4-5.0); Sodium 139 mmol/L (137-145)
[2024-03-14] VITALS (29 sets, daily range): BP systolic 96–134; BP diastolic 57–83; PULSE 46–123; RESP 19–24; TEMP 36.4–37.2; O2SAT 92–97
[2024-03-14] MEDS: DOXYCYCLINE 100 MG/NS 100 ML 100 MG/100 ML BAG IVPB ×2 (00:44→12:49)
[2024-03-14] MEDS: IPRATROPIUM BR 0.02% INH SOLN 0.5 MG/2.5 ML VIAL INHALATION ×4 (02:16→20:30)
[2024-03-14] MEDS: LEVALBUTEROL NEB 1.25 MG/3 ML 0.63 MG INHALATION ×4 (02:16→20:30)
[2024-03-14] MEDS: PIPERACILLN/TAZ 3.375GM/NS50ML 3.375 GM/50 ML BAG IVPB ×4 (02:28→20:40)
[2024-03-14] MEDS: WATER FOR IRRIGATION, STERILE 1,000 ML BOTTLE 1000 ML (03:16)
[2024-03-14 05:00] LABS: Basophils Percent Auto 0.3 % (0.2-1.2); Eosinophils Absolute Auto 0.2 K/mm3 (0-0.3); Eosinophils Percent Auto 2.6 % (0-4.4); Hematocrit 32.8 % (37.0-47.0); Hemoglobin 9.6 g/dL (12.0-15.0); Immature Granulocyte Absolute 0.03 K/mm3 (0.00-0.031); Immature Granulocyte Percent A 0.3 % (0-0.5); Lymphocytes Absolute Auto 1.06 K/mm3 (0.9-3.2); Lymphocytes Percent Auto 11.9 % (18.3-44.2); Mean Corpuscular HGB Conc 29.3 g/dl (32-36); Mean Corpuscular Hemoglobin 28.2 pg (26-34); Mean Corpuscular Volume 96.5 fl (80-100); Monocytes Absolute Auto 0.7 K/mm3 (0.1-0.6); Monocytes Percent Auto 8.3 % (2.6-8.5); Neutrophils Absolute Auto 6.8 K/mm3 (1.3-6.7); Neutrophils Percent Auto 76.6 % (45.5-73.1); Platelet Count Result 185 k/mm3 (150-375); Red Cell Distribution Width 16.4 % (11.5-14.5); White Blood Count 8.9 K/mm3 (4.5-10.0)
[2024-03-14 05:18] LABS: Alanine Aminotransferase 7 U/L (6-35); Albumin Level 4.1 g/dL (3.5-5.1); Alkaline Phosphatase 84 U/L (38-126); Anion Gap 5 mmol/L (4-12); Aspartate Amino Transferase 21 U/L (14-36); Bilirubin,Total 0.8 mg/dL (0.2-1.3); Blood Urea Nitrogen 11 mg/dL (7-17); Calcium 8.7 mg/dL (8.4-10.2); Carbon Dioxide 33 mmol/L (22-30); Chloride 102 mmol/L (98-107); Estimated CRCL calculation 39 ml/min; Estimated Glomerular Filt Rate 60; Glucose 118 mg/dL (65-110); Potassium 3.8 mmol/L (3.4-5.0); Sodium 140 mmol/L (137-145)
[2024-03-14 05:22] LABS: Anisocytosis 1+; Hypochromasia 1+; Platelet Estimate Adequate (Adequate)
[2024-03-14 05:23] LABS: Ovalocytes 1+; Schistocytes None Seen
[2024-03-14] MEDS: dilTIAZem HCL CD 180 MG CAP.24HR 360 MG PO (07:29)
[2024-03-14] MEDS: COLESTIPOL HCL 1 GM TABLET 2 GM PO (07:30)
[2024-03-14] MEDS: APIXABAN 5 MG TABLET PO ×2 (07:30→20:39)
[2024-03-14] MEDS: SERTRALINE HCL 50 MG TABLET 200 MG PO (07:30)
[2024-03-14] MEDS: FUROSEMIDE INJ 40 MG/4 ML VIAL IV PUSH ×2 (07:31→17:47)
--- NOTE | 2024-03-14 14:05 | P.PNIM_ITS ---
Progress Note: A&P Assessment and Plan (1) Acute on chronic respiratory failure: Qualifiers: Respiratory failure complication: hypoxia Qualified Code(s): J96.21 - Acute and chronic respiratory failure with hypoxia Code(s): J96.20 - Acute and chronic respiratory failure, unspecified whether with hypoxia or hypercapnia Status: Acute Assessment and Plan: Patient here for SOB. She wears L O2 during the day and 6L with sleeping. She does not have KAREEM. She is very inactive at home but with DELGADO. WBC normal. DDimer 2.67. Troponin negative x1. BNP 940. COVID, influenza and RSV PCR negative. ABG 7.47/41/125 on 15L NRBM CXR showing mild pulmonary edema and small pleural effusion. CTA Chest negative for PE but with bilateral large pleural effusion with atelectiasis. Mediastinal and bilateral hilar lymphadenopathy noted. RML and RUL pulmonary nodule noted. Apical areas with edema vs pneumonitis. She was given Lasix 80mg IV and Duoneb in the ED Suspect CHF exacerbation and related to pleural effusions. Can not exclude PNA. Wean O2 as tolerated. Pulm consulted. Continue bronchodilators (2) CHF (congestive heart failure): Code(s): I50.9 - Heart failure, unspecified Status: Acute Assessment and Plan: Echo in Mar 2023 showing EF 60-65%, Grade II diastolic dysfunction, akinetic basal inferior wall and modera , moderate MR and mild pulmonary HTN. Continued on IV Lasix Good UOP and negative fluid balance. Monitor UOP, renal fxn and resp status. Start empagliflozin. Check Echo (3) Pleural effusion: Code(s): J90 - Pleural effusion, not elsewhere classified Status: Acute Assessment and Plan: Imaging as above. She has bilateral thoracentsis ordered. Probably related to CHF but consider malignancy given the lung nodules noted. Approrpiate studies includiing Pathology ordered (4) Atrial fibrillation: Code(s): I48.91 - Unspecified atrial fibrillation Status: Chronic Assessment and Plan: Heart rate midly elevated 90-110 range. She has been resumed on her Eliquis She remains on Diltiazem. Monitor on tele. Check TSH (5) Pneumonia: Qualifiers: Laterality: bilateral Lung location: unspecified part of lung Pneumonia type: due to unspecified organism Qualified Code(s): J18.9 - Pneumonia, unspecified organism Code(s): J18.9 - Pneumonia, unspecified organism Status: Acute Assessment and Plan: Imaging as above. WBC normal. BCx NGTD Started on Zosyn and Doxy. Change Doxy to oral since improving. Change to Augmentin in a few days Check MRSA (6) Pulmonary nodules: Code(s): R91.8 - Other nonspecific abnormal finding of lung field Status: Acute Assessment and Plan: As above. Will need to be followed as outpatient. (7) Chronic kidney disease, stage 3: Code(s): N18.30 - Chronic kidney disease, stage 3 unspecified Status: Chronic Assessment and Plan: BUN and Cr normal but CrCl low in the 30's. Renal functions table and handling the Lasix Follow Plan Anemia - Chronic for the past year with Hgb 9-10 range mostly. Hgb stable and within her baseline. Repeat iron, etc DVT prophylaxis - Eliquis Code Status - DNR Subjective Date/time seen: 03/14/24 14:05 Interval history: 78yo female with chronic respiratory failure, CKD 3, HTN and pAFib here fro shortness of breath. Assuming care. Chart reviewed. Patient feeling better. Cough is productive black sputum initially but now brown in color. Occasionally clear sputum. No hemoptysis. She does not smoke any more. No nausea or vomiting. Exam Narrative: AF 98.6 112/65 118 20 94% HFNC 8L. Gen - NARD HEENT - poor detition Chest - coarse BS with decreased BS in the bases CV - irregularly irregular; Tele showing AFib with rate about 105 on average. Abd - Soft, NT/ND, Positive BS Ext - No pedal edema Psych - Nml mood and affect Skin - Warm and dry Objective Data Vital Signs Vital Signs: Vital Signs - 24 hr 03/13/24 16:00 03/13/24 16:00 03/13/24 16:57 Temperature 98.6 F Pulse Rate 112 H 112 H 105 H Respiratory Rate 20 Blood Pressure 148/66 H Pulse Oximetry 96 93 Oxygen Delivery High Flow Nasal Cannula Oxygen Flow Rate 11 03/13/24 18:00 03/13/24 20:04 03/13/24 20:36 Temperature 97.6 F Pulse Rate 100 106 H 113 H Respiratory Rate 20 20 Blood Pressure 127/61 Pulse Oximetry 94 Oxygen Delivery Oxygen Flow Rate 03/13/24 20:40 03/13/24 20:00 03/13/24 20:49 Temperature Pulse Rate 123 H Respiratory Rate 20 Blood Pressure Pulse Oximetry 98 98 Oxygen Delivery High Flow Nasal Cannula High Flow Nasal Cannula Oxygen Flow Rate 10 10 03/13/24 21:00 03/14/24 00:39 03/14/24 00:00 Temperature 97.7 F Pulse Rate 110 H Respiratory Rate 20 Blood Pressure 124/58 L Pulse Oximetry 96 97 97 Oxygen Delivery High Flow Nasal Cannula High Flow Nasal Cannula Oxygen Flow Rate 9.5 9.5 03/13/24 20:00 03/13/24 22:00 03/14/24 00:00 Temperature Pulse Rate 127 H 107 H 110 H Respiratory Rate Blood Pressure Pulse Oximetry Oxygen Delivery Oxygen Flow Rate 03/14/24 02:16 03/14/24 02:25 03/14/24 03:38 Temperature 97.6 F Pulse Rate 105 H 100 95 Respiratory Rate 19 19 20 Blood Pressure 119/59 L Pulse Oximetry 92 Oxygen Delivery Oxygen Flow Rate 03/14/24 02:00 03/14/24 04:00 03/14/24 04:00 Temperature Pulse Rate 98 109 H Respiratory Rate Blood Pressure Pulse Oximetry 92 Oxygen Delivery High Flow Nasal Cannula Oxygen Flow Rate 9.5 03/14/24 06:00 03/14/24 07:24 03/14/24 07:37 Temperature Pulse Rate 99 99 116 H Respiratory Rate 20 Blood Pressure Pulse Oximetry 92 Oxygen Delivery High Flow Nasal Cannula Oxygen Flow Rate 8 03/14/24 07:38 03/14/24 07:57 03/14/24 08:10 Temperature 98.6 F Pulse Rate 46 L Respiratory Rate 22 H Blood Pressure 134/57 L 134/57 L Pulse Oximetry 92 93 Oxygen Delivery High Flow Nasal Cannula Oxygen Flow Rate 8 03/14/24 07:10 03/14/24 07:10 03/14/24 07:20 Temperature Pulse Rate 109 H 113 H Respiratory Rate 20 20 Blood Pressure Pulse Oximetry 96 Oxygen Delivery High Flow Nasal Cannula Oxygen Flow Rate 9.5 03/14/24 08:53 03/14/24 10:00 03/14/24 11:32 Temperature 98.6 F Pulse Rate 118 H 117 H 114 H Respiratory Rate 22 H Blood Pressure 112/65 Pulse Oximetry 94 Oxygen Delivery Oxygen Flow Rate 03/14/24 11:54 03/14/24 11:54 03/14/24 12:30 Temperature Pulse Rate 114 H 114 H 120 H Respiratory Rate 22 H Blood Pressure Pulse Oximetry 94 Oxygen Delivery High Flow Nasal Cannula Oxygen Flow Rate 8 03/14/24 13:40 03/14/24 13:50 Temperature Pulse Rate 116 H 118 H Respiratory Rate 20 20 Blood Pressure Pulse Oximetry Oxygen Delivery Oxygen Flow Rate Intake/Output Intake/Output: Intake & Output 03/11/24 03/12/24 03/13/24 03/14/24 23:59 23:59 23:59 23:59 Intake Total 370 520 Output Total 1250 1400 Balance -880 -880 Meds/Results Medications: Active Medications Generic Name Dose Route Start Last Admin Trade Name Freq PRN Reason Stop Dose Admin Acetaminophen 650 mg 03/12/24 20:10 03/13/24 17:47 Acetaminophen 325 Mg Tablet PO 650 mg Q4H PRN Administration Mild Pain (1-3) or Fever Albuterol/Ipratropium 3 ml 03/12/24 20:15 Ipratropium 0.5 Mg/Albuterol Sulfate 2.5 Mg Ampul.Neb 3 Ml INHALATION Q4H PRN SHORTNESS OF BREATH Alprazolam 1 mg 03/13/24 21:00 03/13/24 20:20 Alprazolam (*Crx) 0.5 Mg Tablet PO 1 mg QHS HEIDE Administration Apixaban 5 mg 03/13/24 21:00 03/14/24 07:30 Apixaban 5 Mg Tablet PO 5 mg Q12HR HEIDE Administration Atorvastatin Calcium 10 mg 03/13/24 21:00 03/13/24 20:20 Atorvastatin 10 Mg Tablet PO 10 mg HS HEIDE Administration Bisacodyl 5 mg 03/12/24 20:10 Bisacodyl 5 Mg Tablet Ec PO DAILY PRN Constipation Clopidogrel Bisulfate 75 mg 03/13/24 09:00 03/14/24 07:31 Clopidogrel Bisulfate 75 Mg Tablet PO Not Given DAILY HEIDE Colestipol HCl 2 gm 03/13/24 09:00 03/14/24 07:30 Colestipol Hcl 1 Gm Tablet PO 2 gm DAILY HEIDE Administration Diltiazem HCl 360 mg 03/13/24 09:00 03/14/24 07:29 Diltiazem Hcl Cd 180 Mg Cap.24hr PO 360 mg DAILY HEIDE Administration Furosemide 40 mg 03/13/24 17:35 03/14/24 07:31 Furosemide Inj 40 Mg/4 Ml Vial IV PUSH 40 mg BID HEIDE Administration Piperacillin/Tazobactam/Dextrose 3.375 gm in 50 mls @ 100 mls/hr 03/13/24 08:00 03/14/24 07:31 Zosyn 3.375 Gm/Ns 50 Ml IVPB 100 mls/hr Q6H HEIDE Administration Doxycycline Hyclate 100 mg in 100 mls @ 100 mls/hr 03/13/24 13:35 03/14/24 12:49 Vibramycin 100 Mg/Ns 100 Ml IVPB 100 mls/hr Q12H HEIDE Administration Ipratropium [place] 0.5 mg 03/12/24 20:00 03/14/24 13:40 Ipratropium Br 0.02% Inh Soln 0.5 Mg/2.5 Ml Vial INHALATION 0.5 mg Q6HRT HEIDE Administration Levalbuterol HCl 0.63 mg 03/12/24 20:00 03/14/24 13:40 Levalbuterol Neb 1.25 Mg/3 Ml INHALATION 0.63 mg Q6HRT HEIDE Administration Sertraline HCl 200 mg 03/13/24 09:00 03/14/24 07:30 Sertraline Hcl 50 Mg Tablet PO 200 mg DAILY HEIDE Administration Radiology Results: ITS Impressions Chest X-Ray 03/12/24 13:55 IMPRESSION: 1. Mild pulmonary edema. 2. Small pleural effusions. 3. Cardiomegaly. Chest CTA 03/12/24 17:42 IMPRESSION: 1. No pulmonary embolism. 2. Bilateral large pleural effusion with adjacent atelectasis. 3. Mediastinal and bilateral hilar lymphadenopathy. 4. Nodule is seen in the right middle lobe and upper lobe. 6 months follow-up CT is advised. 5. Interstitial thickening in the apical areas which may indicate edema versus pneumonitis. Labs Labs: Laboratory Results - last 24 hr 03/13/24 03/14/24 19:50 04:34 WBC 8.9 RBC 3.40 L Hgb 9.6 L Hct 32.8 L MCV 96.5 MCH 28.2 MCHC 29.3 L RDW 16.4 H Plt Count 185 MPV 9.0 Immature Gran % (Auto) 0.3 Neut % (Auto) 76.6 H Lymph % (Auto) 11.9 L [place] % (Auto) 8.3 Eos % (Auto) 2.6 Baso % (Auto) 0.3 Lymph # (Auto) 1.06 [place] # (Auto) 0.7 H Eos # (Auto) 0.2 Baso # (Auto) 0.0 Abs Immat Gran (auto) 0.03 Absolute Neuts (auto) 6.8 H Absolute Nucleated RBC 0.000 Nucleated RBC % 0.0 Platelet Estimate Adequate Hypochromasia 1+ Anisocytosis 1+ Ovalocytes 1+ Schistocytes None seen Sodium 139 140 Potassium 3.8 3.8 Chloride 101 102 Carbon Dioxide 29 33 H Anion Gap 9 5 BUN 12 11 Creatinine 0.90 0.90 Estim Creat Clear Calc 39 39 Estimated GFR 60 60 Glucose 112 H 118 H Calcium 9.0 8.7 Magnesium 2.0 Total Bilirubin 0.8 AST 21 ALT 7 Alkaline Phosphatase 84 Total Protein 7.0 Albumin 4.1
[2024-03-14] MEDS: ALPRAZolam (*CRX) 0.5 MG TABLET 1 MG PO (20:39)
[2024-03-14] MEDS: DOXYCYCLINE HYCLATE 100 MG TABLET PO (20:39)
[2024-03-14] MEDS: ATORVASTATIN 10 MG TABLET PO (20:40)
[2024-03-14] MEDS: ACETAMINOPHEN 325 MG TABLET 650 MG PO (20:51)
[2024-03-14 22:20] LABS: MRSA (PCR) NOT DETECTED (NOT DETECTE)
[2024-03-15] VITALS (30 sets, daily range): BP systolic 108–144; BP diastolic 52–75; PULSE 89–119; RESP 16–27; TEMP 36.3–37; O2SAT 90–99
--- NOTE | 2024-03-15 | ECHO_ITS ---
Patient Info Name: Maria Dolores Henry Age: 78 years : 1945 Gender: Female Ht: 65 in Wt: 155 lbs BSA: 1.81 m2 HR: 105 bpm BP: 108 / 52 mmHg Technical Quality: Fair Exam Date: 03/15/2024 9:57 AM Exam Location: Echo Lab Patient Status: Inpatient Admit Date: 03/13/2024 Staff Ordering Physician: Eren Gross MD Corrugator Helper: Leandra Anthony RDCS Attending Provider: Judson Mckeon MD Exam Type: CA echo doppler w bubble study Study Info Indications J96.90 - Respiratory failure, unspecified, unspecified whether with hypoxia or hypercapnia Complete two-dimensional, color flow and Doppler transthoracic echocardiogram is performed with agitated saline. Strain analysis performed. Contrast/Agitated Saline Contrast/Ag. Saline: Agitated Saline Amount: 14.00 ml Existing IV Access: Yes IV Access Condition: patent with no signs of infiltration Summary 1. There is [id number] shunt evidenced by the positive agitated saline study. 2. The left ventricle is normal in size and systolic function. The left ventricular ejection fraction is visually estimated to be 50-55%. 3. The right ventricle is mildly dilated with preserved systolic function. 4. The aortic valve is trileaflet and heavily calcified. There is moderate aortic stenosis with a valve area of 1.1 cm2. There is moderate aortic regurgitation. Left Ventricle The left ventricle is normal in size and systolic function. The left ventricular ejection fraction is visually estimated to be 50-55%. Right Ventricle The right ventricle is mildly dilated with preserved systolic function. Left Atria The left atrium is mildly dilated. Right Atria The right atrium is normal in size. Atrial Septum Agitated saline study is positive for [id number] shunt. Aortic Valve The aortic valve is trileaflet and heavily calcified. There is moderate aortic stenosis with a valve area of 1.1 cm2. There is moderate aortic regurgitation. Pulmonic Valve The pulmonic valve is not well visualized. Mitral Valve The mitral valve leaflets are sclerotic. There is mild mitral regurgitation. Tricuspid Valve The tricuspid valve is grossly normal. There is mild tricuspid regurgitation. Pericardium/Pleural Pericardium is normal in appearance with no evidence for significant pericardial effusion. Inferior Vena Cava Dilated inferior vena cava with >50% collapse upon inspiration consistent with elevated right atrial pressure, 10 mmHg. Aorta The aortic root at the level of the sinus of Valsalva measures 2.2 cm in diameter. Left Ventricular Outflow Tract Name Value Normal LVOT 2D LVOT Diameter 2.0 cm LVOT Doppler LVOT Peak Gradient 3 mmHg LVOT Mean Gradient 2 mmHg LVOT VTI 15 cm LVOT VTI/AV VTI Ratio 0.4 LVOT Stroke Volume 44 ml LVOT CO 4.2 l/min LVOT CI 2.3 l/min/m2 Pulmonic Valve Name Value Normal PV Doppler PV Peak Gradient 3 mmHg PV Regurgitation Doppler MN Peak End Diastolic Velocity 100 cm/s Mitral Valve Name Value Normal MV Doppler MV Decel [place] 1,163 cm/s2 MV PHT 32 ms MV Area (PHT) 6.9 cm2 4.0-5.0 MV Diastolic Function MV E Peak Velocity 127 cm/s MV A Peak Velocity 40 cm/s MV E/A 3.2 MV Decel Time 110 ms Tricuspid Valve Name Value Normal TV Regurgitation Doppler TR Peak Velocity 318 cm/s TR Peak Gradient 36 mmHg Estimated PAP/RSVP RA Pressure 10 mmHg <=5 PA Systolic Pressure 50 mmHg <36 RV Systolic Pressure 50 mmHg <36 Aorta Name Value Normal Ascending Aorta Ao Root Diameter (MM) 2.2 cm Ao Root Diam Index (MM) 1.2 cm/m2 Aortic Valve Name Value Normal AV Doppler AV Peak Velocity 227 cm/s AV Peak Gradient 20 mmHg AV Mean Gradient 10 mmHg AV VTI 42 cm AV Area (Cont Eq VTI) 1.1 cm2 >=3.0 AV Area (Cont Eq Alexander) 1.4 cm2 AV Regurgitation 2D LVOT Area 3.0 cm2 AV Regurgitation Doppler AR Decel Time 1,359 ms AR Decel [place] 256 cm/s2 AR PHT 394 ms Ventricles Name Value Normal LV Dimensions 2D/MM IVS Diastolic Thickness (2D) 0.8 cm 0.6-1.0 IVS Diastole Thickness (MM) 0.8 cm 0.6-0.9 LVID Diastole (2D) 4.3 cm 3.8-5.2 LVID Diastole (MM) 5.7 cm 3.8-5.2 LVIW Diastolic Thickness (2D) 0.9 cm 0.6-0.9 LVIW Diastolic Thickness (MM) 0.8 cm 0.6-0.9 LVID Systole (2D) 2.4 cm 2.2-3.5 LVID Systole (MM) 3.8 cm 2.2-3.5 LVOT Diameter 2.0 cm LV Mass (2D Cubed) 109.91 g 67.00-162.00 LV Mass Index (2D Cubed) 61 g/m2 43-95 Relative Wall Thickness (2D) 0.42 LV Mass (MM Cubed) 170.17 g 67.00-162.00 LV Mass Index (MM Cubed) 94 g/m2 43-95 Relative Wall Thickness (MM) 0.27 LV Fractional Shortening/Ejection Fraction 2D/MM LV Fractional Shortening (2D) 44 % 27-45 LV Fractional Shortening (MM) 34 % 27-45 LV EF (MM Teicholz) 62 % 54-74 LV EF (2D Teicholz) 75 % 54-74 LV Diastolic Volume (4C MOD) 52 ml LV EF (4C MOD) 64 % LV Diastolic Volume (2C MOD) 67 ml LV EF (2C MOD) 51 % LV Diastolic Volume (BP MOD) 62 ml 46-106 LV Diastolic Volume Index (BP MOD) 35 ml/m2 29-61 LV Systolic Volume (BP MOD) 26 ml 14-42 LV Systolic Volume Index (BP MOD) 14 ml/m2 8-24 LV EF (BP MOD) 58 % 54-74 LV Diastolic Length (4C) 7.0 cm LV Systolic Length (4C) 6.0 cm LV Stroke Volume (4C MOD) 33 ml Atria Name Value Normal LA Dimensions LA Dimension (MM) 5.0 cm 2.7-3.8 LA Volume (4C A-L) 60 ml LA Volume (BP A-L) 68 ml RA Dimensions RA Area (4C) 16.5 cm2 <=18.0 EchoPAC Name Value Normal GENO AA peak sys SL (AWMA) 9.6 % AAS peak sys SL (AWMA) 17.1 % AI peak sys SL (AWMA) 21.9 % AL peak sys SL (AWMA) 19.2 % AP peak sys SL (AWMA) 11.1 % peak sys SL (AWMA) 19.1 % AVC (AWMA) 313 ms BA peak sys SL (AWMA) 6.6 % BI peak sys SL (AWMA) 3.1 % BL peak sys SL (AWMA) 8.2 % BP peak sys SL (AWMA) 6.0 % BS peak sys SL (AWMA) 2.1 % G peak SL(A2C) (AWMA) 11.2 % G peak SL(A4C) (AWMA) 13.1 % G peak SL(APLAX) (AWMA) 12.4 % G peak SL(Avg) (AWMA) 12.2 % MA peak sys SL (AWMA) 14.0 % MAS peak sys SL (AWMA) 21.2 % NH peak sys SL (AWMA) 13.5 % ML peak sys SL (AWMA) 13.0 % MP peak sys SL (AWMA) 5.3 % MS peak sys SL (AWMA) 18.7 % Report Signatures
[2024-03-15] MEDS: LEVALBUTEROL NEB 1.25 MG/3 ML 0.63 MG INHALATION ×4 (02:30→19:47)
[2024-03-15] MEDS: IPRATROPIUM BR 0.02% INH SOLN 0.5 MG/2.5 ML VIAL INHALATION ×4 (02:30→19:46)
[2024-03-15] MEDS: PIPERACILLN/TAZ 3.375GM/NS50ML 3.375 GM/50 ML BAG IVPB ×4 (03:00→20:55)
[2024-03-15 05:14] LABS: Basophils Percent Auto 0.4 % (0.2-1.2); Eosinophils Absolute Auto 0.3 K/mm3 (0-0.3); Eosinophils Percent Auto 4.2 % (0-4.4); Hematocrit 31.4 % (37.0-47.0); Hemoglobin 9.3 g/dL (12.0-15.0); Immature Granulocyte Absolute 0.02 K/mm3 (0.00-0.031); Immature Granulocyte Percent A 0.3 % (0-0.5); Lymphocytes Percent Auto 17.5 % (18.3-44.2); Mean Corpuscular HGB Conc 29.6 g/dl (32-36); Mean Corpuscular Hemoglobin 28.4 pg (26-34); Monocytes Absolute Auto 0.6 K/mm3 (0.1-0.6); Monocytes Percent Auto 8.5 % (2.6-8.5); Neutrophils Absolute Auto 5.2 K/mm3 (1.3-6.7); Neutrophils Percent Auto 69.1 % (45.5-73.1); Platelet Count Result 188 k/mm3 (150-375); Red Blood Count 3.27 M/mm3 (4.2-5.4); Red Cell Distribution Width 16.4 % (11.5-14.5); White Blood Count 7.4 K/mm3 (4.5-10.0)
[2024-03-15 05:28] LABS: Alanine Aminotransferase 7 U/L (6-35); Albumin Level 3.9 g/dL (3.5-5.1); Alkaline Phosphatase 74 U/L (38-126); Anion Gap 5 mmol/L (4-12); Aspartate Amino Transferase 19 U/L (14-36); Bilirubin,Total 0.7 mg/dL (0.2-1.3); Blood Urea Nitrogen 12 mg/dL (7-17); Calcium 8.6 mg/dL (8.4-10.2); Carbon Dioxide 35 mmol/L (22-30); Chloride 100 mmol/L (98-107); Estimated CRCL calculation 30 ml/min; Estimated Glomerular Filt Rate 43; Glucose 115 mg/dL (65-110); Magnesium 1.9 mg/dL (1.6-2.3); Potassium 3.6 mmol/L (3.4-5.0); Sodium 140 mmol/L (137-145)
[2024-03-15 05:37] LABS: Anisocytosis 1+; Hypochromasia 1+; Ovalocytes 1+; Platelet Estimate Adequate (Adequate); Schistocytes None Seen
[2024-03-15 05:55] LABS: Iron 38 ug/dL (37-170)
[2024-03-15 06:06] LABS: Percent Iron Saturation 8 % (20-50)
[2024-03-15 06:32] LABS: Folic Acid > 20.0 ng/mL (2.76->20)
[2024-03-15] MEDS: EMPAGLIFLOZIN 10 MG TABLET PO (08:34)
[2024-03-15] MEDS: DOXYCYCLINE HYCLATE 100 MG TABLET PO ×2 (08:34→21:02)
[2024-03-15] MEDS: SERTRALINE HCL 50 MG TABLET 200 MG PO (08:34)
[2024-03-15] MEDS: dilTIAZem HCL CD 180 MG CAP.24HR 360 MG PO (08:34)
[2024-03-15] MEDS: APIXABAN 5 MG TABLET PO ×2 (08:34→21:02)
[2024-03-15] MEDS: COLESTIPOL HCL 1 GM TABLET 2 GM PO (08:35)
--- NOTE | 2024-03-15 10:36 | P.PNIM_ITS ---
Progress Note: A&P Assessment and Plan (1) Acute on chronic respiratory failure: Qualifiers: Respiratory failure complication: hypoxia Qualified Code(s): J96.21 - Acute and chronic respiratory failure with hypoxia Code(s): J96.20 - Acute and chronic respiratory failure, unspecified whether with hypoxia or hypercapnia Status: Acute Assessment and Plan: Patient here for SOB. She wears 4L O2 during the day and 6L with sleeping. She does not have KAREEM. She is very inactive at home but with DELGADO. WBC normal. DDimer 2.67. Troponin negative x1. BNP 940. COVID, influenza and RSV PCR negative. ABG 7.47/41/125 on 15L NRBM CXR showing mild pulmonary edema and small pleural effusion. CTA Chest negative for PE but with bilateral large pleural effusion with atelectasis. Mediastinal and bilateral hilar lymphadenopathy noted. RML and RUL pulmonary nodule noted. Apical areas with edema vs pneumonitis. She was given Lasix 80mg IV and Duoneb in the ED Suspect CHF exacerbation and related to pleural effusions. Can not exclude PNA. She was started on Lasix IV but held this morning for worsening renal function Hypoxia better yesterday at 8L but worsening overnight and now on 13L. Related to worsening shunt? Pleural effusions? CHF? Wean O2 as tolerated. Pulm consulted. Continue bronchodilators. Add steroids. Check CXR. (2) CHF (congestive heart failure): Code(s): I50.9 - Heart failure, unspecified Status: Acute Assessment and Plan: Echo showing Right to left shunt by positive agitated saline study, normal LV size and systolic fxn with EF 50-55%, dilated RV with preserved systolic function and moderate , moderate AI and mild MR. In Mar 2023, EF 60-65%, Grade II diastolic dysfunction, akinetic basal inferior wall and moderate , moderate MR and mild pulmonary HTN. CXR as above. BNP 2940 Good UOP yesterday at 1550 but UOP worse today. Holding Lasix due to worsening renal fxn. Monitor UOP, renal fxn and resp status. Hold empagliflozin. (3) Chronic kidney disease, stage 3: Code(s): N18.30 - Chronic kidney disease, stage 3 unspecified Status: Chronic Assessment and Plan: BUN and Cr normal but CrCl low in the 30's chronically. BUN 12 but Cr up to 1.2 today. Probably related to diuresis but she did receive contrast 03/12. Consider also related to hypoxia. Repeat labs later today. Check renal US and urine studies. Follow (4) Pleural effusion: Code(s): J90 - Pleural effusion, not elsewhere classified Status: Acute Assessment and Plan: Imaging as above. She has bilateral thoracentsis ordered. Probably related to CHF but consider malignancy given the lung nodules noted. Appropriate studies including Pathology ordered (5) Atrial fibrillation: Code(s): I48.91 - Unspecified atrial fibrillation Status: Chronic Assessment and Plan: Heart rate midly elevated 90-110 range. TSH normal She has been resumed on her Eliquis She remains on Diltiazem. Monitor on tele. (6) Pneumonia: Qualifiers: Laterality: bilateral Lung location: unspecified part of lung Pneumonia type: due to unspecified organism Qualified Code(s): J18.9 - Pneumonia, unspecified organism Code(s): J18.9 - Pneumonia, unspecified organism Status: Acute Assessment and Plan: Imaging as above. WBC normal. BCx NGTD. MRSA nasal swab negative. Started on Zosyn and Doxy. Doxy x 5 days. Change to Rocephin. (7) Pulmonary nodules: Code(s): R91.8 - Other nonspecific abnormal finding of lung field Status: Acute Assessment and Plan: CT showing RML 7mm nodule that is larger than prior imaging and a right apical nodule at 1cm. Also with mediastinal and bilateral hilar adenopathy. As above. Will need to be followed as outpatient. Plan Anemia - Chronic for the past year with Hgb 9-10 range mostly. Hgb stable and within her baseline. Iron studies showing normal iron and TIBC but low iron sat at 8%. Ferritin 45. B12 319 and MMA ordered. Folate normal. Add iron supplements DVT prophylaxis - Eliquis Code Status - DNR Subjective Date/time seen: 03/15/24 10:36 Interval history: 78yo female with chronic respiratory failure, CKD 3, HTN and pAFib here for shortness of breath. Slept well. Up to the chair. No n/v. Cough is dry and 'croupy'. Requiring more O2 now. Exam Narrative: AF 97.4 126/54 103 24 92% HFNC 11L. Gen - NARD Chest - decreased BS with expiratory rhonchi. no conversational dyspnea. CV - irregularly irregular. 2/6 systolic murmur LSB. Tele showing AFib with rate around 105 Abd - Soft, NT/ND, Positive BS Ext - No pedal edema Psych - Nml mood and affect Skin - Warm and dry Objective Data Vital Signs Vital Signs: Vital Signs - 24 hr 03/14/24 11:32 03/14/24 11:54 03/14/24 11:54 Temperature 98.6 F Pulse Rate 114 H 114 H 114 H Respiratory Rate 22 H 22 H Blood Pressure 112/65 Pulse Oximetry 94 94 Oxygen Delivery High Flow Nasal Cannula Oxygen Flow Rate 8 03/14/24 12:30 03/14/24 13:40 03/14/24 13:50 Temperature Pulse Rate 120 H 116 H 118 H Respiratory Rate 20 20 Blood Pressure Pulse Oximetry Oxygen Delivery Oxygen Flow Rate 03/14/24 14:00 03/14/24 16:00 03/14/24 16:00 Temperature Pulse Rate 116 H 123 H 123 H Respiratory Rate 20 Blood Pressure Pulse Oximetry 94 Oxygen Delivery High Flow Nasal Cannula Oxygen Flow Rate 8 03/14/24 16:00 03/14/24 16:00 03/14/24 18:00 Temperature 98.9 F Pulse Rate 113 H 117 H 103 H Respiratory Rate 24 H Blood Pressure 96/83 L Pulse Oximetry 93 Oxygen Delivery Oxygen Flow Rate 03/14/24 20:00 03/14/24 20:30 03/14/24 20:30 Temperature 98.7 F Pulse Rate 114 H 113 H 113 H Respiratory Rate 20 20 Blood Pressure 126/59 L Pulse Oximetry 93 93 Oxygen Delivery High Flow Nasal Cannula Oxygen Flow Rate 8 03/14/24 20:45 03/14/24 20:00 03/14/24 20:00 Temperature Pulse Rate 103 H 105 H Respiratory Rate 20 Blood Pressure Pulse Oximetry 93 Oxygen Delivery Oxygen Flow Rate 7 03/14/24 22:00 03/15/24 00:00 03/15/24 02:30 Temperature 97.8 F Pulse Rate 107 H 102 H 92 Respiratory Rate 16 20 Blood Pressure 110/52 L Pulse Oximetry 96 Oxygen Delivery Oxygen Flow Rate 03/15/24 02:43 03/15/24 03:55 03/15/24 00:00 Temperature 97.9 F Pulse Rate 97 105 H Respiratory Rate 20 18 Blood Pressure 108/52 L Pulse Oximetry 95 92 Oxygen Delivery High Flow Therapy with Na Oxygen Flow Rate 11 03/15/24 00:00 03/15/24 02:00 03/15/24 04:00 Temperature Pulse Rate 90 91 Respiratory Rate Blood Pressure Pulse Oximetry 95 Oxygen Delivery High Flow Therapy with Na Oxygen Flow Rate 12 03/15/24 04:00 03/15/24 06:00 03/15/24 07:45 Temperature Pulse Rate 100 89 97 Respiratory Rate 20 Blood Pressure Pulse Oximetry Oxygen Delivery Oxygen Flow Rate 03/15/24 07:55 03/15/24 07:55 03/15/24 08:00 Temperature 97.4 F L Pulse Rate 98 98 104 H Respiratory Rate 20 24 H Blood Pressure 126/54 L Pulse Oximetry 97 96 Oxygen Delivery High Flow Nasal Cannula Oxygen Flow Rate 11 03/15/24 08:00 03/15/24 08:00 03/15/24 10:00 Temperature Pulse Rate 104 H 103 H Respiratory Rate Blood Pressure Pulse Oximetry 92 Oxygen Delivery High Flow Nasal Cannula Oxygen Flow Rate 11 Intake/Output Intake/Output: Intake & Output 03/12/24 03/13/24 03/14/24 03/15/24 23:59 23:59 23:59 23:59 Intake Total 370 2230 100 Output Total 1250 1550 600 Balance -880 680 -500 Meds/Results Medications: Active Medications Generic Name Dose Route Start Last Admin Trade Name Freq PRN Reason Stop Dose Admin Acetaminophen 650 mg 03/12/24 20:10 03/14/24 20:51 Acetaminophen 325 Mg Tablet PO 650 mg Q4H PRN Administration Mild Pain (1-3) or Fever Albuterol/Ipratropium 3 ml 03/12/24 20:15 Ipratropium 0.5 Mg/Albuterol Sulfate 2.5 Mg Ampul.Neb 3 Ml INHALATION Q4H PRN SHORTNESS OF BREATH Alprazolam 1 mg 03/13/24 21:00 03/14/24 20:39 Alprazolam (*Crx) 0.5 Mg Tablet PO 1 mg QHS HEIDE Administration Apixaban 5 mg 03/13/24 21:00 03/15/24 08:34 Apixaban 5 Mg Tablet PO 5 mg Q12HR HEIDE Administration Atorvastatin Calcium 10 mg 03/13/24 21:00 03/14/24 20:40 Atorvastatin 10 Mg Tablet PO 10 mg HS HEIDE Administration Bisacodyl 5 mg 03/12/24 20:10 Bisacodyl 5 Mg Tablet Ec PO DAILY PRN Constipation Clopidogrel Bisulfate 75 mg 03/13/24 09:00 03/14/24 07:31 Clopidogrel Bisulfate 75 Mg Tablet PO Not Given DAILY HEIDE Colestipol HCl 2 gm 03/13/24 09:00 03/15/24 08:35 Colestipol Hcl 1 Gm Tablet PO 2 gm DAILY HEIDE Administration Diltiazem HCl 360 mg 03/13/24 09:00 03/15/24 08:34 Diltiazem Hcl Cd 180 Mg Cap.24hr PO 360 mg DAILY HEIDE Administration Doxycycline Hyclate 100 mg 03/14/24 21:00 03/15/24 08:34 Doxycycline Hyclate 100 Mg Tablet PO 100 mg Q12HR HEIDE Administration Empagliflozin 10 mg 03/15/24 09:00 03/15/24 08:34 Empagliflozin 10 Mg Tablet PO 10 mg DAILY HEIDE Administration Furosemide 40 mg 03/13/24 17:35 03/15/24 08:35 Furosemide Inj 40 Mg/4 Ml Vial IV PUSH Not Given BID HEIDE Piperacillin/Tazobactam/Dextrose 3.375 gm in 50 mls @ 100 mls/hr 03/13/24 08:00 03/15/24 10:03 Zosyn 3.375 Gm/Ns 50 Ml IVPB Infused Q6H HEIDE Infusion Ipratropium [place] 0.5 mg 03/12/24 20:00 03/15/24 07:49 Ipratropium Br 0.02% Inh Soln 0.5 Mg/2.5 Ml Vial INHALATION 0.5 mg Q6HRT HEIDE Administration Levalbuterol HCl 0.63 mg 03/12/24 20:00 03/15/24 07:49 Levalbuterol Neb 1.25 Mg/3 Ml INHALATION 0.63 mg Q6HRT HEIDE Administration Perflutren Lipid Microsphere 0 ml 03/14/24 16:24 Perflutren Lipid Microspheres 1.5 Ml Vial Diluted To 10 Ml Total Volume IV PUSH 03/17/24 16:24 ONCE PRN adequate visualization Protocol Sertraline HCl 200 mg 03/13/24 09:00 03/15/24 08:34 Sertraline Hcl 50 Mg Tablet PO 200 mg DAILY HEIDE Administration Radiology Results: ITS Impressions Chest X-Ray 03/12/24 13:55 IMPRESSION: 1. Mild pulmonary edema. 2. Small pleural effusions. 3. Cardiomegaly. Chest CTA 03/12/24 17:42 IMPRESSION: 1. No pulmonary embolism. 2. Bilateral large pleural effusion with adjacent atelectasis. 3. Mediastinal and bilateral hilar lymphadenopathy. 4. Nodule is seen in the right middle lobe and upper lobe. 6 months follow-up CT is advised. 5. Interstitial thickening in the apical areas which may indicate edema versus pneumonitis. Labs Labs: Laboratory Results - last 24 hr 03/14/24 03/15/24 20:38 04:49 WBC 7.4 RBC 3.27 L Hgb 9.3 L Hct 31.4 L MCV 96.0 MCH 28.4 MCHC 29.6 L RDW 16.4 H Plt Count 188 MPV 9.0 Immature Gran % (Auto) 0.3 Neut % (Auto) 69.1 Lymph % (Auto) 17.5 L [place] % (Auto) 8.5 Eos % (Auto) 4.2 Baso % (Auto) 0.4 Lymph # (Auto) 1.30 [place] # (Auto) 0.6 Eos # (Auto) 0.3 Baso # (Auto) 0.0 Abs Immat Gran (auto) 0.02 Absolute Neuts (auto) 5.2 Absolute Nucleated RBC 0.000 Nucleated RBC % 0.0 Platelet Estimate Adequate Hypochromasia 1+ Anisocytosis 1+ Ovalocytes 1+ Schistocytes None seen Sodium 140 Potassium 3.6 Chloride 100 Carbon Dioxide 35 H Anion Gap 5 BUN 12 Creatinine 1.20 H Estim Creat Clear Calc 30 Estimated GFR 43 L Glucose 115 H Calcium 8.6 Phosphorus 4.0 Magnesium 1.9 Iron 38 TIBC 455 % Saturation 8 L Ferritin 44.90 Total Bilirubin 0.7 AST 19 ALT 7 Alkaline Phosphatase 74 Total Protein 7.0 Albumin 3.9 Vitamin B12 319.0 Folate > 20.0 H TSH (Reflex) 2.700 Nasal MRSA (PCR) Not detected
[2024-03-15] MEDS: LORazepam INJ (*CRX) 2 MG/ML VIAL 0.5 MG IV PUSH (11:06)
[2024-03-15] MEDS: methylPREDNISolone SOD SUCC 125 MG VIAL 80 MG IV PUSH (11:06)
[2024-03-15] MEDS: IPRATROPIUM 0.5 MG/ALBUTEROL SULFATE 2.5 MG AMPUL.NEB 3 ML INHALATION (12:25)
--- NOTE | 2024-03-15 13:22 | PM.CNPUL ---
Assessment and Plan Assessment and plan (1) Acute on chronic respiratory failure: Qualifiers: Respiratory failure complication: hypoxia Qualified Code(s): J96.21 - Acute and chronic respiratory failure with hypoxia Code(s): J96.20 - Acute and chronic respiratory failure, unspecified whether with hypoxia or hypercapnia Status: Acute Assessment and Plan: Increasing O2 requirement, now 15 liters/minute with saturation around 90-93%. She has COPD, uses oxygen at home at baseline, 4-5 L, 6 L with exertion and sleep. She has no carbon dioxide retention. She has a [id number] shunt seen on echo Mar 3, likely due to what ever her acute process is, heart failure with increased pleural effusions, increased pulmonary hypertension with a right to left path of blood bypassing pulmonary system. She can oxygenate acceptably on high flow mask. She does not have KAREEM, does not require PAP with sleep, however may benefit from using CPAP to recruit alveoli to improve oxygenation. I am not sure with the underlying cause of her effusions is other than decompensated cardiac function. She is on Lasix 40 mg b.i.d. at home. (2) COPD (chronic obstructive pulmonary disease): Qualifiers: COPD type: unspecified COPD Qualified Code(s): J44.9 - Chronic obstructive pulmonary disease, unspecified Code(s): J44.9 - Chronic obstructive pulmonary disease, unspecified Status: Acute Assessment and Plan: At home uses Stiolto 2.5-2.5 one puff a day for long standing COPD, and p.r.n. albuterol 3-4 tiems a day. I agree with changing the IV solumedrol to oral prednisone. I am not sure that she had an exacerbation of COPD, for certain did not have pneumonia. She had small amounts of brown sputum before admission. I will check an extended respiratory pathogen panel. Agree with thoracentesis, a diagnostic and therapeutic intervention. (3) SOB (shortness of breath): Code(s): R06.02 - Shortness of breath Status: Acute Assessment and Plan: She remains short of breath, more than experiences has at baseline, however at rest, she is comfortable. (4) History of tobacco abuse: Code(s): Z87.891 - Personal history of nicotine dependence Status: Acute Assessment and Plan: Smoked for decades, none since September 2022 (5) Pulmonary nodules: Code(s): R91.8 - Other nonspecific abnormal finding of lung field Status: Acute Assessment and Plan: 7 mm RML nodule needs [address] chest as this has grown; the 1 cm nodule in the right apex is stable. Plan 1. Trial of CPAP to help improve oxygenation. She has no CO2 retention, so CPAP should be as beneficial as BiPAP for her decompensated cardiac function. 2. Thoracentesis; computer shows that she will have this Mar 18. Will see if she can have this sooner on the right side as this has a larger effusion than the left. 3. Diuresis; initial creat was 0.8, BUN was 12. Today the creatinine is 1.2 . She may be getting 'dried out' intravascularly. Wt is hard to assess; computer says wt is 71.6 kg, not different from admission. 4. Agree with po prednisone, oral doxycycline, COPD inhalers; I will check extended respiratory pathogen panel which screens for 30 viruses. There is not much that can be done for the viral conditions, however knowing if she has one of them can explain symptoms. 5. [address] follow up for nodules History of Present Illness History of Present Illness Consult date: 03/15/24 Requesting physician: Judson Mckeon MD Chief complaint: Acute & chronic respiratory failure, pleural effus Narrative: Patient was seen Mar 15, 2024 at 13:20 Room 202 O2 need is higher today NEW: Maria Dolores Henry is 78 years old, followed by our practice, has COPD, chronic respiratory failure, uses O2 at home. She is using 4-5 L/min at rest, 6 L/min with exertion and sleep. She saw Dr Donato in the office Mar 05, and was stable according to his note. Her COPD regimen included Stiolto Respimat 2.5-2.51 puff daily and albuterol rescue inhaler 3-4 times per day, guaifenesin 600 mg every other day and Lasix 40 mg b.i.d.. She has not smoked since September of 2023. She has no secondhand tobacco exposure. She is up-to-date on all vaccinations. She was admitted on TuesdayMar 12. She says that she has not been feeling well for a few weeks. She is up-to-date on her vaccinations influenza, RSV, COVID. on admission, the PCR for these (-). At first, her sputum was brown but now she has a barking cough, says she feels like she has a croupy cough. ABG = no CO2 retention, pH 7.47, pCO2 41, PO2 125 on 15 L non-rebreather mask.. CXR = no infiltrate, mainly effusion, CTA on March 14 shows large effusion on the right smaller effusion on the left and a 7 mm nodule in the right anterior lung. Treated with Zosyn and doxycycline, now po doxycycline. She has a higher O2 requirement today, up to 15 L /min. She has no fever, no sputum now. Her echo 03/13 shows a right to left shunt. not sure how significant this is, but shunts cause hypoxemia. WBC = 7.1 Mar 12, now 7.4k; D-Dimer 2.67. Negative troponin. BNP - 940. Mar 15 today 03/15 CXR = more pulmonary edema, right pleural effusion, no infiltrate. WBC is stable, 7.4k. She was given Lasix 80mg IV and Duoneb in the ED Suspect CHF exacerbation and related to pleural effusions. Can not exclude PNA. DATA: * 03/12/2024 CXR; There is a diffuse interstitial pattern in the lungs, consistent with pulmonary edema. There is mild atelectasis at the lung bases. There are small pleural effusions. No pneumothorax. Cardiomegaly is noted. IMPRESSION: 1. Mild pulmonary edema. 2. Small pleural effusions. 3. Cardiomegaly. * 03/13/24 chest CTA - Nodule is seen in the right middle lobe measuring 7 mm. 6 months follow-up advised. This nodule is larger than the previous study. Interstitial thickening is seen in the apical area which may indicate pneumonitis versus edema. Minimal atelectatic changes seen in the middle lobe. Nodule is seen in the right apical area measuring 1 cm. No pulmonary masses. No pneumothorax. Bilateral large pleural effusion with adjacent atelectasis seen. . VISUALIZED UPPER ABDOMEN: Status post cholecystectomy. small left kidney cyst. Possible left kidney lower pole a stone. Otherwise, the visualized upper abdomen is normal. MUSCULOSKELETAL: Soft tissues: The superficial soft tissues are normal. Bones: Age appropriate degenerative changes of the spine. Old compression fracture is seen in T7. IMPRESSION: 1. No pulmonary embolism. 2. Bilateral large pleural effusion with adjacent atelectasis. 3. Mediastinal and bilateral hilar lymphadenopathy. 4. Nodule is seen in the right middle lobe and upper lobe. 6 months follow-up CT is advised. 5. Interstitial thickening in the apical areas which may indicate edema versus pneumonitis. * 03/13 = EchoThere is [id number] shunt evidenced by the positive agitated saline study. 2. The left ventricle is normal in size and systolic function. The left ventricular ejection fraction is visually estimated to be 50-55%. 3. The right ventricle is mildly dilated with preserved systolic function. 4. The aortic valve is trileaflet and heavily calcified. There is moderate aortic stenosis with a valve area of 1.1 cm2. There is moderate aortic regurgitation. Review of Systems Review of Systems: All systems reviewed & are unremarkable except as noted in HPI and below [facility] Past Medical History Medical History (Updated 03/14/24 @ 16:15 by Eren Gross MD) Abdominal bloating Anxiety Chronic anticoagulation Chronic kidney disease, stage 3 Compression fracture of body of thoracic vertebra Diarrhea Hyperlipidemia Hypertension Minimal cognitive impairment Paroxysmal atrial fibrillation Trochanteric fracture Surgical History Surgical History History of appendectomy History of back surgery History of cardiac catheterization History of cholecystectomy History of coronary artery stent placement History of hysterectomy History of partial colectomy History of tonsillectomy Family History Family History (Updated 03/12/24 @ 22:25 by Madison Temple RN) Father Patient's father is Family history of emphysema Mother Patient's mother is Family history of chronic obstructive pulmonary disease Other Heart disease Heart failure Social History Social History Smoking packs per day: 1.5 Smoking cigarettes per day: 30.0 Years smoked: 55 Smoking pack-years: 82.50 Smoking status: Former smoker Tobacco type: cigarettes Second hand tobacco smoke exposure: No Smoking end date: 01/09/23 Alcohol intake: never Drinks per week: 0 Substance use: never Substance use type: does not use Do You Feel Safe in your Home?: Yes Lack of Transportation: No Lack of Food: Never True Current Housing: I Have Housing Concerned About Future Housing: No Difficulty Paying Gas/Electric Bills: No Difficulty Paying for Meds: No Currently Unemployed: No Education: Bachelor's Degree Difficulty w/ Childcare or Family Care: No Living arrangements: assisted living Additional living arrangements comments: currently living at [facility] in [place] Occupation/Education: retired Spiritual care concerns: No Meds Home Medications and Allergies Home Medications Medication Instructions Recorded Confirmed Type apixaban 5 mg tablet (Eliquis) 5 mg PO BID 08/07/20 03/12/24 History furosemide 40 mg tablet 60 mg PO DAILY 08/07/20 03/12/24 History clopidogrel 75 mg tablet 75 mg PO DAILY 02/03/23 03/12/24 History diltiazem HCl 240 mg 360 mg PO DAILY 10/05/23 03/12/24 History capsule,extended release 24 hr sertraline 100 mg tablet 200 mg PO DAILY #180 tabs 11/14/23 03/12/24 Rx albuterol sulfate 90 mcg/actuation 2 puff inhalation Q4H PRN 12/01/23 03/12/24 History aerosol inhaler Shortness Of Breath Or Wheezing alprazolam 1 mg tablet (Xanax) 1 mg PO QHS #90 tabs 02/27/24 03/12/24 Rx atorvastatin 10 mg tablet 10 mg PO HS 03/12/24 03/12/24 History colestipol 1 gram tablet 2 g PO DAILY 03/12/24 03/12/24 History hydrocodone 5 mg-acetaminophen 325 1 tablet PO Q6H PRN Pain 03/12/24 03/12/24 History mg tablet ipratropium 0.5 mg-albuterol 3 mg 3 ml inhalation Q6H 03/12/24 03/12/24 History (2.5 mg base)/3 mL nebulization soln Allergies Allergy/AdvReac Type Severity Reaction Status Date / Time steroids Allergy Mild Confusion Uncoded 03/12/24 22:32 Vital Signs Vital Signs - 24 hr 03/14/24 13:40 03/14/24 13:50 03/14/24 14:00 Temperature Pulse Rate 116 H 118 H 116 H Respiratory Rate 20 20 Blood Pressure Pulse Oximetry Oxygen Delivery Oxygen Flow Rate 03/14/24 16:00 03/14/24 16:00 03/14/24 16:00 Temperature Pulse Rate 123 H 123 H 113 H Respiratory Rate 20 Blood Pressure Pulse Oximetry 94 Oxygen Delivery High Flow Nasal Cannula Oxygen Flow Rate 8 03/14/24 16:00 03/14/24 18:00 03/14/24 20:00 Temperature 37.2 C 37.1 C Pulse Rate 117 H 103 H 114 H Respiratory Rate 24 H 20 Blood Pressure 96/83 L 126/59 L Pulse Oximetry 93 93 Oxygen Delivery Oxygen Flow Rate 03/14/24 20:30 03/14/24 20:30 03/14/24 20:45 Temperature Pulse Rate 113 H 113 H 103 H Respiratory Rate 20 20 Blood Pressure Pulse Oximetry 93 Oxygen Delivery High Flow Nasal Cannula Oxygen Flow Rate 8 03/14/24 20:00 03/14/24 20:00 03/14/24 22:00 Temperature Pulse Rate 105 H 107 H Respiratory Rate Blood Pressure Pulse Oximetry 93 Oxygen Delivery Oxygen Flow Rate 7 03/15/24 00:00 03/15/24 02:30 03/15/24 02:43 Temperature 36.6 C Pulse Rate 102 H 92 97 Respiratory Rate 16 20 20 Blood Pressure 110/52 L Pulse Oximetry 96 Oxygen Delivery Oxygen Flow Rate 03/15/24 03:55 03/15/24 00:00 03/15/24 00:00 Temperature 36.6 C Pulse Rate 105 H 90 Respiratory Rate 18 Blood Pressure 108/52 L Pulse Oximetry 95 92 Oxygen Delivery High Flow Therapy with Na Oxygen Flow Rate 11 03/15/24 02:00 03/15/24 04:00 03/15/24 04:00 Temperature Pulse Rate 91 100 Respiratory Rate Blood Pressure Pulse Oximetry 95 Oxygen Delivery High Flow Therapy with Na Oxygen Flow Rate 12 03/15/24 06:00 03/15/24 07:45 03/15/24 07:55 Temperature Pulse Rate 89 97 98 Respiratory Rate 20 Blood Pressure Pulse Oximetry 97 Oxygen Delivery High Flow Nasal Cannula Oxygen Flow Rate 11 03/15/24 07:55 03/15/24 08:00 03/15/24 08:00 Temperature 36.3 C L Pulse Rate 98 104 H Respiratory Rate 20 24 H Blood Pressure 126/54 L Pulse Oximetry 96 92 Oxygen Delivery High Flow Nasal Cannula Oxygen Flow Rate 11 03/15/24 08:00 03/15/24 10:00 03/15/24 11:11 Temperature Pulse Rate 104 H 103 H Respiratory Rate Blood Pressure Pulse Oximetry Oxygen Delivery High Flow Nasal Cannula Oxygen Flow Rate 13 03/15/24 11:32 03/15/24 11:34 03/15/24 12:59 Temperature 37.0 C Pulse Rate 118 H Respiratory Rate 24 H Blood Pressure 113/55 L Pulse Oximetry 92 92 91 Oxygen Delivery High Flow Nasal Cannula Oxygen Flow Rate 13 15 03/15/24 12:11 Temperature Pulse Rate Respiratory Rate Blood Pressure Pulse Oximetry 90 Oxygen Delivery Oxygen Flow Rate 14 Exam Narrative: GEN: Alert, oriented, not in distress. She is wearing a high flow nasal cannula 15 L, saturation 91-93%. She has mild dyspnea. HEENT: pupils are equal, EOMI, symmetrical face; oral membranes moist, no oral lesions. NECK: Trachea is midline CHEST: Equal air entry, symmetric excursion, decreased breath sounds in bases, scattered inspiratory squeaks posteriorly, no wheezes CV: irregularly irregular S1S2 with no gallop ABD : (+) bowel sounds Extremities : no clubbing, cyanosis, edema, no calf tenderness PSYCH: normal thought and speech, gait is not tested Results Laboratory Findings 03/15/24 04:49 03/15/24 04:49 ABG, PT/INR, D-dimer: ABG ABG pH 7.473 (7.350-7.450) H 03/12/24 13:41 ABG pCO2 41.0 mmHg (35.0-45.0) 03/12/24 13:41 ABG pO2 125.4 mmHg (80.0-100.0) H 03/12/24 13:41 ABG O2 Saturation 98.7 % (95.0-100.0) 03/12/24 13:41 PT/INR, D-dimer PT 20.6 Seconds (11.1-14.7) H 03/12/24 13:26 INR 1.7 03/12/24 13:26 D-Dimer 2.67 ug/mL (<0.48) H 03/12/24 13:26 D-Dimer Cancelled 03/12/24 13:26 Abnormal lab findings: Abnormal Labs 03/12/24 03/12/24 03/12/24 13:26 13:26 13:41 RBC 3.40 L Hgb 9.9 L Hct 32.0 L MCHC 30.9 L RDW 15.9 H Neut % (Auto) 75.7 H Lymph % (Auto) 13.1 L Mccormick % (Auto) 9.4 H Mccormick # (Auto) 0.7 H Absolute Neuts (auto) PT 20.6 H APTT 40.9 H D-Dimer 2.67 H ABG pH 7.473 H ABG pO2 125.4 H ABG HCO3 29.4 H ABG O2 Content 14.2 L Total Hemoglobin 10.2 L Potassium 3.2 L Carbon Dioxide 34 H Creatinine Estimated GFR Glucose 140 H % Saturation NT-Pro-B Natriuret Pep 2940 H 2790 H Folate 03/13/24 03/13/24 03/14/24 03:21 19:50 04:34 RBC 3.46 L 3.40 L Hgb 9.7 L 9.6 L Hct 32.7 L 32.8 L MCHC 29.7 L 29.3 L RDW 16.1 H 16.4 H Neut % (Auto) 76.6 H Lymph % (Auto) 17.0 L 11.9 L Mccormick % (Auto) 9.5 H Mccormick # (Auto) 0.7 H 0.7 H Absolute Neuts (auto) 6.8 H PT APTT D-Dimer ABG pH ABG pO2 ABG HCO3 ABG O2 Content Total Hemoglobin Potassium 3.3 L Carbon Dioxide 34 H 33 H Creatinine Estimated GFR Glucose 112 H 118 H % Saturation NT-Pro-B Natriuret Pep Folate 03/15/24 04:49 RBC 3.27 L Hgb 9.3 L Hct 31.4 L MCHC 29.6 L RDW 16.4 H Neut % (Auto) Lymph % (Auto) 17.5 L Mccormick % (Auto) Mccormick # (Auto) Absolute Neuts (auto) PT APTT D-Dimer ABG pH ABG pO2 ABG HCO3 ABG O2 Content Total Hemoglobin Potassium Carbon Dioxide 35 H Creatinine 1.20 H Estimated GFR 43 L Glucose 115 H % Saturation 8 L NT-Pro-B Natriuret Pep Folate > 20.0 H
[2024-03-15 19:08] LABS: Creatinine Urine 63.2 mg/dL; Total Protein Urine Random 40 mg/dL; Ur Ttl Prot Creatinine Ratio 0.63 mg/mg (0-0.20)
[2024-03-15 19:12] LABS: Eosinophil Urine None Seen % (None Seen); Urine Eos QC 2nd Tech Confirmed
[2024-03-15 19:21] LABS: Creatinine Urine 64.1 mg/dL
[2024-03-15 19:27] LABS: Sodium Urine Random 9 meq/L
[2024-03-15 19:28] LABS: Albumin Level 4.2 g/dL (3.5-5.1); Anion Gap 10 mmol/L (4-12); Blood Urea Nitrogen 13 mg/dL (7-17); Carbon Dioxide 29 mmol/L (22-30); Chloride 99 mmol/L (98-107); Estimated CRCL calculation 36 ml/min; Estimated Glomerular Filt Rate 53; Glucose 291 mg/dL (65-110); Phosphorus 3.3 mg/dL (2.5-4.5); Potassium 3.5 mmol/L (3.4-5.0); Sodium 138 mmol/L (137-145)
[2024-03-15 19:29] LABS: Add Urine Microscopic? YES; Appearance Urine Clear (Clear); Bacteria Urine None Seen /hpf; Bilirubin Urine Negative (Negative); Blood Urine Negative (Negative); Color Urine Yellow (Yellow); Glucose Urine UA 3+ mg/dL (Negative); Ketones Urine Negative (Negative); Leukocyte Esterase Ur Negative LEU/UL (Negative); Need Manual Microscopic Reviewed; Nitrate Urine Negative (Negative); Non Pathogenic Casts 0-2; Protein Urine 1+ mg/dL (Negative); RBC Urine 0-2 /hpf (0-2); Specific Grav Ur 1.041 (1.001-1.035); Squamous Epithelial Cell Urine None Seen /hpf (Few); Urobilinogen Urine 0.2 mg/dL (<2.0); WBC Urine 0-5 /hpf (0-3)
[2024-03-15] MEDS: FUROSEMIDE INJ 40 MG/4 ML VIAL IV PUSH (20:57)
[2024-03-15 21:01] LABS: Creatine Kinase 60 U/L (30-135)
[2024-03-15] MEDS: ATORVASTATIN 10 MG TABLET PO (21:02)
[2024-03-15] MEDS: ALPRAZolam (*CRX) 0.5 MG TABLET 1 MG PO (21:03)
[2024-03-15] MEDS: ACETAMINOPHEN 325 MG TABLET 650 MG PO (21:03)
[2024-03-16] VITALS (27 sets, daily range): BP systolic 123–144; BP diastolic 64–83; PULSE 85–112; RESP 20–24; TEMP 36.4–36.8; O2SAT 84–100
[2024-03-16] MEDS: PIPERACILLN/TAZ 3.375GM/NS50ML 3.375 GM/50 ML BAG IVPB ×4 (02:45→20:32)
[2024-03-16 04:10] LABS: Hematocrit 31.4 % (37.0-47.0); Hemoglobin 9.4 g/dL (12.0-15.0); Immature Granulocyte Absolute 0.03 K/mm3 (0.00-0.031); Immature Granulocyte Percent A 0.7 % (0-0.5); Lymphocytes Absolute Auto 0.34 K/mm3 (0.9-3.2); Lymphocytes Percent Auto 7.6 % (18.3-44.2); Mean Corpuscular HGB Conc 29.9 g/dl (32-36); Mean Corpuscular Hemoglobin 27.9 pg (26-34); Mean Corpuscular Volume 93.2 fl (80-100); Mean Platelet Volume 9.3 fl (7.4-10.4); Monocytes Absolute Auto 0.1 K/mm3 (0.1-0.6); Monocytes Percent Auto 2.2 % (2.6-8.5); Neutrophils Percent Auto 89.5 % (45.5-73.1); Platelet Count Result 196 k/mm3 (150-375); Red Blood Count 3.37 M/mm3 (4.2-5.4); White Blood Count 4.5 K/mm3 (4.5-10.0)
[2024-03-16 04:19] LABS: Alanine Aminotransferase 8 U/L (6-35); Albumin Level 4.2 g/dL (3.5-5.1); Alkaline Phosphatase 81 U/L (38-126); Anion Gap 6 mmol/L (4-12); Aspartate Amino Transferase 19 U/L (14-36); Bilirubin,Total 0.6 mg/dL (0.2-1.3); Blood Urea Nitrogen 13 mg/dL (7-17); Carbon Dioxide 32 mmol/L (22-30); Chloride 102 mmol/L (98-107); Estimated CRCL calculation 33 ml/min; Estimated Glomerular Filt Rate 48; Glucose 173 mg/dL (65-110); Potassium 3.5 mmol/L (3.4-5.0); Sodium 140 mmol/L (137-145)
[2024-03-16 04:37] LABS: Procalcitonin 0.1 ng/mL
[2024-03-16 04:41] LABS: Anisocytosis 1+; Hypochromasia 1+; Ovalocytes 1+; Platelet Estimate Adequate (Adequate); Schistocytes None Seen
[2024-03-16] MEDS: LEVALBUTEROL NEB 1.25 MG/3 ML 0.63 MG INHALATION ×3 (07:03→19:21)
[2024-03-16] MEDS: IPRATROPIUM BR 0.02% INH SOLN 0.5 MG/2.5 ML VIAL INHALATION ×3 (07:04→19:21)
[2024-03-16] MEDS: predniSONE 20 MG TABLET 40 MG PO (09:10)
[2024-03-16] MEDS: BISACODYL 5 MG TABLET EC PO (09:10)
[2024-03-16] MEDS: FERROUS SULFATE 325 MG TABLET DR PO (09:10)
[2024-03-16] MEDS: ACETAMINOPHEN 325 MG TABLET 650 MG PO ×2 (09:10→15:08)
[2024-03-16] MEDS: APIXABAN 5 MG TABLET PO ×2 (09:10→20:33)
[2024-03-16] MEDS: DOXYCYCLINE HYCLATE 100 MG TABLET PO ×2 (09:10→20:33)
[2024-03-16] MEDS: dilTIAZem HCL CD 180 MG CAP.24HR 360 MG PO (09:11)
[2024-03-16] MEDS: COLESTIPOL HCL 1 GM TABLET 2 GM PO (09:11)
[2024-03-16] MEDS: SERTRALINE HCL 50 MG TABLET 200 MG PO (09:11)
[2024-03-16] MEDS: BUMETANIDE INJ 1 MG/4 ML VIAL 2 MG IV PUSH ×2 (09:20→16:38)
[2024-03-16] MEDS: LORazepam INJ (*CRX) 2 MG/ML VIAL 0.5 MG IV PUSH (12:01)
--- NOTE | 2024-03-16 13:14 | PCPTNOTE ---
Attempted to see patient for PT, however patient refused. Patient reported she was up earlier today and needs to rest at this time.
--- NOTE | 2024-03-16 15:50 | PM.IMPN ---
Progress Note: A&P Assessment and Plan (1) Acute on chronic respiratory failure: Qualifiers: Respiratory failure complication: hypoxia Qualified Code(s): J96.21 - Acute and chronic respiratory failure with hypoxia Code(s): J96.20 - Acute and chronic respiratory failure, unspecified whether with hypoxia or hypercapnia Status: Acute Assessment and Plan: Patient here for SOB. She wears 4L O2 during the day and 6L with sleeping. She does not have KAREEM. She is very inactive at home due to DELGADO. WBC normal. DDimer 2.67. Troponin negative x1. BNP 940. COVID, influenza and RSV PCR negative. ABG 7.47/41/125 on 15L NRBM CXR showing mild pulmonary edema and small pleural effusion. CTA Chest negative for PE but with bilateral large pleural effusion with atelectasis. Mediastinal and bilateral hilar lymphadenopathy noted. RML and RUL pulmonary nodule noted. Apical areas with edema vs pneumonitis. She was given Lasix 80mg IV and Duoneb in the ED Suspect CHF exacerbation and related to pleural effusions. Can not exclude PNA. She was started on Lasix IV but held for worsening renal function Echo as below but does show right to left shunt. Hypoxia initally better at 8L but worsening up to 15L. Related to worsening shunt? Pleural effusions? CHF? Able to resume diuretic therapy. Wean O2 as tolerated. Pulm following and appreciate their input. Continue bronchodilators and steroids. (2) CHF (congestive heart failure): Code(s): I50.9 - Heart failure, unspecified Status: Acute Assessment and Plan: Echo showing right to left shunt by positive agitated saline study, normal LV size and systolic fxn with EF 50-55%, dilated RV with preserved systolic function and moderate , moderate AI and mild MR. In Mar 2023, EF 60-65%, Grade II diastolic dysfunction, akinetic basal inferior wall and moderate , moderate MR and mild pulmonary HTN. Imaging as above. BNP 2940 UOP yesterday at 1000 and 700mL today. Change to Bumex. Monitor UOP, renal fxn and resp status. Empagliflozin stopped. (3) Chronic kidney disease, stage 3: Code(s): N18.30 - Chronic kidney disease, stage 3 unspecified Status: Chronic Assessment and Plan: BUN and Cr normal but CrCl low in the 30's chronically. BUN 12 but Cr up to 1.2 Probably related to diuresis but she did receive contrast 03/12. Consider also related to hypoxia. Renal US showing no significant abnormalities. Urine studies are prerenal. Follow (4) Pleural effusion: Code(s): J90 - Pleural effusion, not elsewhere classified Status: Acute Assessment and Plan: Imaging as above. She has bilateral thoracentsis ordered but on hold waiting for Plavix to wash out. Probably related to CHF but consider malignancy given the lung nodules noted. Plan for thoracentesis on 03/19. Stop Eliquis after today. Start Lovenox in the morning. Appropriate studies including Pathology ordered (5) Atrial fibrillation: Code(s): I48.91 - Unspecified atrial fibrillation Status: Chronic Assessment and Plan: Heart rate midly elevated 90-110 range. TSH normal She has been resumed on her Eliquis She remains on Diltiazem. Monitor on tele. (6) Pneumonia: Qualifiers: Laterality: bilateral Lung location: unspecified part of lung Pneumonia type: due to unspecified organism Qualified Code(s): J18.9 - Pneumonia, unspecified organism Code(s): J18.9 - Pneumonia, unspecified organism Status: Acute Assessment and Plan: Imaging as above. WBC normal. BCx NGTD. MRSA nasal swab negative. Started on Zosyn and Doxy. Doxy x 5 days. (7) Pulmonary nodules: Code(s): R91.8 - Other nonspecific abnormal finding of lung field Status: Acute Assessment and Plan: CT showing RML 7mm nodule that is larger than prior imaging and a right apical nodule at 1cm. Also with mediastinal and bilateral hilar adenopathy. As above. Will need to be followed as outpatient. Plan Anemia - Chronic for the past year with Hgb 9-10 range mostly. Hgb stable and within her baseline. Iron studies showing normal iron and TIBC but low iron sat at 8%. Ferritin 45. B12 319 and MMA ordered. Folate normal. Add iron supplements DVT prophylaxis - Eliquis Code Status - DNR Subjective Date/time seen: 03/16/24 15:50 Interval history: 78yo female with chronic respiratory failure, CKD 3, HTN and pAFib here for shortness of breath. Complains of headache. Did wear the mask last night. Has a persistent dry cough. No SOB. On 15L but turned down to 13L while in the room Exam Narrative: AF 97.9 130/66 99 20 97% HFNC 13L. Gen - NARD Chest - decreased BS R>L o/w distant. no conversational dyspnea. CV - irregularly irregular. Tele showing AFib with rate better Abd - Soft, NT/ND, Positive BS Ext - No pedal edema Psych - Nml mood and affect Skin - Warm and dry Objective Data Vital Signs Vital Signs: Vital Signs - 24 hr 03/15/24 16:00 03/15/24 18:00 03/15/24 19:47 Temperature Pulse Rate 103 H 119 H 96 Respiratory Rate 20 Blood Pressure Pulse Oximetry Oxygen Delivery Oxygen Flow Rate Fraction of Inspired Oxygen 03/15/24 20:01 03/15/24 20:02 03/15/24 19:51 Temperature 98.5 F Pulse Rate 92 99 110 H Respiratory Rate 20 22 H Blood Pressure 118/75 Pulse Oximetry 97 95 Oxygen Delivery High Flow Nasal Cannula Oxygen Flow Rate 15 Fraction of Inspired Oxygen 03/15/24 20:55 03/15/24 20:00 03/15/24 20:00 Temperature Pulse Rate 107 H 106 H 107 H Respiratory Rate 22 H 22 H Blood Pressure Pulse Oximetry 99 99 Oxygen Delivery CPAP High Flow Nasal Cannula Oxygen Flow Rate 15 Fraction of Inspired Oxygen 03/15/24 23:48 03/15/24 22:00 03/16/24 00:00 Temperature 98.2 F Pulse Rate 107 H 95 100 Respiratory Rate 27 H Blood Pressure 144/74 H Pulse Oximetry 99 Oxygen Delivery Oxygen Flow Rate Fraction of Inspired Oxygen 03/16/24 00:00 03/16/24 00:05 03/16/24 01:20 Temperature Pulse Rate 100 101 H 92 Respiratory Rate 24 H 24 H 20 Blood Pressure Pulse Oximetry 99 100 Oxygen Delivery CPAP Oxygen Flow Rate Fraction of Inspired Oxygen 100 03/16/24 01:35 03/16/24 01:36 03/16/24 02:00 Temperature Pulse Rate 96 105 H 100 Respiratory Rate 23 H 21 H Blood Pressure Pulse Oximetry 99 Oxygen Delivery Oxygen Flow Rate Fraction of Inspired Oxygen 03/16/24 03:22 03/16/24 03:23 03/16/24 04:08 Temperature Pulse Rate 100 103 H 101 H Respiratory Rate 21 H 23 H Blood Pressure Pulse Oximetry 99 100 Oxygen Delivery CPAP CPAP Oxygen Flow Rate Fraction of Inspired Oxygen 100 03/16/24 04:00 03/16/24 06:00 03/16/24 06:55 Temperature 98.3 F Pulse Rate 85 91 92 Respiratory Rate 20 20 Blood Pressure 138/68 Pulse Oximetry 100 92 Oxygen Delivery High Flow Nasal Cannula Oxygen Flow Rate 15 Fraction of Inspired Oxygen 03/16/24 06:55 03/16/24 07:05 03/16/24 08:00 Temperature 97.7 F Pulse Rate 92 94 100 Respiratory Rate 20 20 24 H Blood Pressure 129/78 Pulse Oximetry 94 Oxygen Delivery Oxygen Flow Rate Fraction of Inspired Oxygen 03/16/24 08:20 03/16/24 08:00 03/16/24 08:00 Temperature Pulse Rate 112 H Respiratory Rate Blood Pressure Pulse Oximetry 91 Oxygen Delivery EMS-CPAP High Flow Therapy with Na Oxygen Flow Rate 15 Fraction of Inspired Oxygen 03/16/24 10:00 03/16/24 12:00 03/16/24 12:00 Temperature 97.9 F Pulse Rate 103 H 94 Respiratory Rate 22 H Blood Pressure 130/66 Pulse Oximetry 95 97 Oxygen Delivery High Flow Therapy with Na Oxygen Flow Rate 13 Fraction of Inspired Oxygen 03/16/24 13:05 03/16/24 13:15 03/16/24 12:00 Temperature Pulse Rate 104 H 99 106 H Respiratory Rate 20 20 Blood Pressure Pulse Oximetry Oxygen Delivery Oxygen Flow Rate Fraction of Inspired Oxygen Intake/Output Intake/Output: Intake & Output 03/13/24 03/14/24 03/15/24 03/16/24 23:59 23:59 23:59 23:59 Intake Total 370 2230 1190 540 Output Total 1250 1550 1000 700 Balance -880 680 190 -160 Meds/Results Medications: Active Medications Generic Name Dose Route Start Last Admin Trade Name Freq PRN Reason Stop Dose Admin Acetaminophen 650 mg 03/12/24 20:10 03/16/24 15:08 Acetaminophen 325 Mg Tablet PO 650 mg Q4H PRN Administration Mild Pain (1-3) or Fever Albuterol/Ipratropium 3 ml 03/12/24 20:15 03/15/24 12:25 Ipratropium 0.5 Mg/Albuterol Sulfate 2.5 Mg Ampul.Neb 3 Ml INHALATION 3 ml Q4H PRN Administration SHORTNESS OF BREATH Alprazolam 1 mg 03/13/24 21:00 03/15/24 21:03 Alprazolam (*Crx) 0.5 Mg Tablet PO 1 mg QHS HEIDE Administration Apixaban 5 mg 03/13/24 21:00 03/16/24 09:10 Apixaban 5 Mg Tablet PO 5 mg Q12HR HEIDE Administration Atorvastatin Calcium 10 mg 03/13/24 21:00 03/15/24 21:02 Atorvastatin 10 Mg Tablet PO 10 mg HS HEIDE Administration Bisacodyl 5 mg 03/12/24 20:10 03/16/24 09:10 Bisacodyl 5 Mg Tablet Ec PO 5 mg DAILY PRN Administration Constipation Bumetanide 2 mg 03/16/24 09:00 03/16/24 09:20 Bumetanide Inj 1 Mg/4 Ml Vial IV PUSH 2 mg BID HEIDE Administration Clopidogrel Bisulfate 75 mg 03/13/24 09:00 03/14/24 07:31 Clopidogrel Bisulfate 75 Mg Tablet PO Not Given DAILY HEIDE Colestipol HCl 2 gm 03/13/24 09:00 03/16/24 09:11 Colestipol Hcl 1 Gm Tablet PO 2 gm DAILY HEIDE Administration Diltiazem HCl 360 mg 03/13/24 09:00 03/16/24 09:11 Diltiazem Hcl Cd 180 Mg Cap.24hr PO 360 mg DAILY HEIDE Administration Doxycycline Hyclate 100 mg 03/14/24 21:00 03/16/24 09:10 Doxycycline Hyclate 100 Mg Tablet PO 03/17/24 21:01 100 mg Q12HR HEIDE Administration Ferrous Sulfate 325 mg 03/16/24 09:00 03/16/24 09:10 Ferrous Sulfate [address] PO 325 mg DAILY HEIDE Administration Piperacillin/Tazobactam/Dextrose 3.375 gm in 50 mls @ 100 mls/hr 03/13/24 08:00 03/16/24 15:08 Zosyn 3.375 Gm/Ns 50 Ml IVPB 100 mls/hr Q6H HEIDE Administration Ipratropium [place] 0.5 mg 03/12/24 20:00 03/16/24 13:07 Ipratropium Br 0.02% Inh Soln 0.5 Mg/2.5 Ml Vial INHALATION 0.5 mg Q6HRT HEIDE Administration Levalbuterol HCl 0.63 mg 03/12/24 20:00 03/16/24 13:07 Levalbuterol Neb 1.25 Mg/3 Ml INHALATION 0.63 mg Q6HRT HEIDE Administration Lorazepam 0.5 mg 03/15/24 10:41 03/16/24 12:01 Lorazepam Inj (*Crx) 2 Mg/Ml Vial IV PUSH 0.5 mg Q6H PRN Administration Anxiety Perflutren Lipid Microsphere 0 ml 03/14/24 16:24 Perflutren Lipid Microspheres 1.5 Ml Vial Diluted To 10 Ml Total Volume IV PUSH 03/17/24 16:24 ONCE PRN adequate visualization Protocol Prednisone 40 mg 03/16/24 08:00 03/16/24 09:10 Prednisone 20 Mg Tablet PO 03/21/24 07:59 40 mg DAILY@0800 HEIDE Administration Sertraline HCl 200 mg 03/13/24 09:00 03/16/24 09:11 Sertraline Hcl 50 Mg Tablet PO 200 mg DAILY HEIDE Administration Radiology Results: ITS Impressions Chest CTA 03/12/24 17:42 IMPRESSION: 1. No pulmonary embolism. 2. Bilateral large pleural effusion with adjacent atelectasis. 3. Mediastinal and bilateral hilar lymphadenopathy. 4. Nodule is seen in the right middle lobe and upper lobe. 6 months follow-up CT is advised. 5. Interstitial thickening in the apical areas which may indicate edema versus pneumonitis. Chest X-Ray 03/15/24 11:53 IMPRESSION: 1. Diffuse lung disease with worsening at the lung bases, likely a combination of pulmonary edema and atelectasis. 2. Worsened small right pleural effusion. 3. Cardiomegaly. Renal Ultrasound 03/15/24 20:32 IMPRESSION: No definite abnormal. Small simple cyst in the right kidney lower pole. Labs Labs: Laboratory Results - last 24 hr 03/15/24 03/15/24 03/15/24 18:53 18:53 19:10 WBC RBC Hgb Hct MCV MCH MCHC RDW Plt Count MPV Immature Gran % (Auto) Neut % (Auto) Lymph % (Auto) [place] % (Auto) Eos % (Auto) Baso % (Auto) Lymph # (Auto) [place] # (Auto) Eos # (Auto) Baso # (Auto) Abs Immat Gran (auto) Absolute Neuts (auto) Absolute Nucleated RBC Nucleated RBC % Platelet Estimate Hypochromasia Anisocytosis Ovalocytes Schistocytes Sodium 138 Potassium 3.5 Chloride 99 Carbon Dioxide 29 Anion Gap 10 BUN 13 Creatinine 1.00 Estim Creat Clear Calc 36 Estimated GFR 53 L Glucose 291 H Calcium 9.0 Phosphorus 3.3 Total Bilirubin AST ALT Alkaline Phosphatase Total Creatine Kinase 60 C-Reactive Protein 1.0 Total Protein Albumin 4.2 Procalcitonin Urine Color Yellow Urine Appearance Clear Urine pH 6.0 Ur Specific Rankin 1.041 H Urine Protein 1+ H Urine Glucose (UA) 3+ H Urine Ketones Negative Ur Blood (Man) Negative Urine Nitrate Negative Urine Bilirubin Negative Urine Urobilinogen 0.2 Add Ur Microanalysis Reviewed Leukocyte Esterase Rfl Negative Urine RBC 0-2 Urine WBC 0-5 Ur Squamous Epith Cells None seen Urine Bacteria None seen Urine Casts 0-2 Urine Eosinophils None seen U Random Total Protein 40 Ur Random Sodium 9 Urine Creatinine 63.2 64.1 Protein/Creat Ratio 2 0.63 H 03/16/24 03:32 WBC 4.5 RBC 3.37 L Hgb 9.4 L Hct 31.4 L MCV 93.2 MCH 27.9 MCHC 29.9 L RDW 16.0 H Plt Count 196 MPV 9.3 Immature Gran % (Auto) 0.7 H Neut % (Auto) 89.5 H Lymph % (Auto) 7.6 L [place] % (Auto) 2.2 L Eos % (Auto) 0.0 Baso % (Auto) 0.0 L Lymph # (Auto) 0.34 L [place] # (Auto) 0.1 Eos # (Auto) 0.0 Baso # (Auto) 0.0 Abs Immat Gran (auto) 0.03 Absolute Neuts (auto) 4.0 Absolute Nucleated RBC 0.000 Nucleated RBC % 0.0 Platelet Estimate Adequate Hypochromasia 1+ Anisocytosis 1+ Ovalocytes 1+ Schistocytes None seen Sodium 140 Potassium 3.5 Chloride 102 Carbon Dioxide 32 H Anion Gap 6 BUN 13 Creatinine 1.10 H Estim Creat Clear Calc 33 Estimated GFR 48 L Glucose 173 H Calcium 9.0 Phosphorus Total Bilirubin 0.6 AST 19 ALT 8 Alkaline Phosphatase 81 Total Creatine Kinase C-Reactive Protein Total Protein 8.0 Albumin 4.2 Procalcitonin 0.1 Urine Color Urine Appearance Urine pH Ur Specific Rankin Urine Protein Urine Glucose (UA) Urine Ketones Ur Blood (Man) Urine Nitrate Urine Bilirubin Urine Urobilinogen Add Ur Microanalysis Leukocyte Esterase Rfl Urine RBC Urine WBC Ur Squamous Epith Cells Urine Bacteria Urine Casts Urine Eosinophils U Random Total Protein Ur Random Sodium Urine Creatinine Protein/Creat Ratio 2
--- NOTE | 2024-03-16 20:25 | P.PNPL_ITS ---
Progress Note: A&P Assessment and Plan (1) Acute on chronic respiratory failure: Qualifiers: Respiratory failure complication: hypoxia Qualified Code(s): J96.21 - Acute and chronic respiratory failure with hypoxia Code(s): J96.20 - Acute and chronic respiratory failure, unspecified whether with hypoxia or hypercapnia Status: Acute Assessment and Plan: Increasing O2 requirement, now 15 liters/minute with saturation around 90-93%. She has COPD, uses oxygen at home at baseline, 4-5 L, 6 L with exertion and sleep. She has no carbon dioxide retention. She has a ouazo-lj-[id number] shunt seen on echo Dec 3, likely due to what ever her acute process is, heart failure with increased pleural effusions, increased pulmonary hypertension with a right to left path of blood bypassing pulmonary system. She is requiring additional O2, now on high flow, 60 L and 90%. She has decompensated cardiac function. She is on Lasix 40 mg b.i.d. at home. thoracentesis may help with poor oxygenation if she can have at least a liter off. Will add mucolytics, Dornase adrian 1-2 doses, 3% saline nebulized, Cornet valve, possibly vibratory vest if she can tolerate it. (2) COPD (chronic obstructive pulmonary disease): Qualifiers: COPD type: unspecified COPD Qualified Code(s): J44.9 - Chronic obst ructive pulmonary disease, unspecified Code(s): J44.9 - Chronic obstructive pulmonary disease, unspecified Status: Acute Assessment and Plan: At home uses Stiolto 2.5-2.5 one puff a day for long standing COPD, and p.r.n. albuterol 3-4 times a day. I agree with changing the IV solumedrol to oral prednisone. I am not sure that she had an exacerbation of COPD, for certain did not have pneumonia. She had small amounts of brown sputum before admission. Extended respiratory pathogen panel is pending, thoracentesis is pending. (3) SOB (shortness of breath): Code(s): R06.02 - Shortness of breath Status: Acute Assessment and Plan: She remains short of breath, more than experiences has at baseline, however at rest, she is comfortable. (4) History of tobacco abuse: Code(s): Z87.891 - Personal history of nicotine dependence Status: Acute Assessment and Plan: Smoked for decades, none since September 2022 (5) Pulmonary nodules: Code(s): R91.8 - Other nonspecific abnormal finding of lung field Status: Acute Assessment and Plan: 7 mm RML nodule needs [address] chest as this has grown; the 1 cm nodule in the right apex is stable. Plan 1. Trial of CPAP did not help; she is now requiring high flow, saturation is 90- 91% on higher O2. portable CXR today. 2. Add cornet vibratory valve, 3% saline nebs and sputum for AFB, fungal, and bacterial pathogens. The extended respiratory pathogen panel is pending, has a large variety of viral pathogens. Check TB serum test, QuantiFERON GOLD. Her swab for COVID SARS-CoV-2 was negative Dec 2. 3. Dornase adrian 1-2 doses to try to decrease atelectasis, trying to improve oxygenation; vibratory vest. 4. Thoracentesis; computer shows that she will have this Mar 18. Will see if she can have this sooner on the right side as this has a larger effusion than the left. 5. Continue Diuresis; initial creat was 0.8, BUN was 12. Today the creatinine is 1.0. Wt is hard to assess; computer says wt is 72.4, up 0.8 kg. Similar to different from admission. 6.. Agree with po prednisone, oral doxycycline, COPD inhalers; 7.. [address] follow up for nodules. 8. To check for shunt fraction, she may need a right heart cath. Subjective Date/time seen: 03/17/24 16:24 Interval history: 03/17: The patient is on much higher amounts of O2. Used CPAP overnight, today used non-rebreather,, now on high flow nasal cannula. Saturation is 90-91% using 60 L/min and FiO2 90%. this is the highest amount of O2 she has been on this admission. A year ago, she had COVID, low O2 saturation, also had a thoracentesis, grew Aspergillus on sputum, was treated with voriconazole x 14 days. new; 03/15/24; Maria Dolores Henry is 78 years old, followed by our practice, has COPD, chronic respiratory failure, uses O2 at home. She is using 4-5 L/min at rest, 6 L/min with exertion and sleep. She saw Dr Donato in the office Mar 05, and was stable according to his note. Her COPD regimen included Stiolto Respimat 2.5-2.51 puff daily and albuterol rescue inhaler 3-4 times per day, guaifenesin 600 mg every other day and Lasix 40 mg b.i.d.. She has not smoked since September of 2023. She has no secondhand tobacco exposure. She is up-to-date on all vaccinations.She was admitted to [facility] in Mar 2023 with pneumonia, pleural effusions, COVID; sputum grew out Aspergillus without focal lung consolidations or cavitations and she was treated with voriconazole for 14 days for presumed colonization Mar 2023. . She was admitted on [facility] Dec 2. She says that she has not been feeling well for a few weeks. She is up-to-date on her vaccinations influenza, RSV, COVID. on admission, the PCR for these (-). At first, her sputum was brown but now she has a barking cough, says she feels like she has a croupy cough. ABG = no CO2 retention, pH 7.47, pCO2 41, PO2 125 on 15 L non-rebreather mask.. CXR = no infiltrate, mainly effusion, CTA on March 14 shows large effusion on the right smaller effusion on the left and a 7 mm nodule in the right anterior lung. Treated with Zosyn and doxycycline, now po doxycycline. She has a higher O2 requirement today, up to 15 L /min. She has no fever, no sputum now. Her echo 03/13 shows a right to left shunt. not sure how significant this is, but shunts cause hypoxemia. WBC = 7.1 Mar 12, now 7.4k; D-Dimer 2.67. Negative troponin. BNP - 940. Mar 15 CXR = more pulmonary edema, right pleural effusion, no infiltrate. WBC is stable, 7.4k. She was given Lasix 80mg IV and Duoneb in the ED Suspect CHF exacerbation and related to pleural effusions. Can not exclude PNA. DATA: * 03/12/2024 CXR; There is a diffuse interstitial pattern in the lungs, consistent with pulmonary edema. There is mild atelectasis at the lung bases. There are small pleural effusions. No pneumothorax. Cardiomegaly is noted. IMPRESSION: 1. Mild pulmonary edema. 2. Small pleural effusions. 3. Cardiomegaly. * 03/13/24 chest CTA - Nodule is seen in the right middle lobe measuring 7 mm. 6 months follow-up advised. This nodule is larger than the previous study. Interstitial thickening is seen in the apical area which may indicate pneumonitis versus edema. Minimal atelectatic changes seen in the middle lobe. Nodule is seen in the right apical area measuring 1 cm. No pulmonary masses. No pneumothorax. Bilateral large pleural effusion with adjacent atelectasis seen. . VISUALIZED UPPER ABDOMEN: Status post cholecystectomy. small left kidney cyst. Possible left kidney lower pole a stone. Otherwise, the visualized upper abdomen is normal. MUSCULOSKELETAL: Soft tissues: The superficial soft tissues are normal. Bones: Age appropriate degenerative changes of the spine. Old compression fracture is seen in T7. IMPRESSION: 1. No pulmonary embolism. 2. Bilateral large pleural effusion with adjacent atelectasis. 3. Mediastinal and bilateral hilar lymphadenopathy. 4. Nodule is seen in the right middle lobe and upper lobe. 6 months follow-up CT is advised. 5. Interstitial thickening in the apical areas which may indicate edema versus pneumonitis. * 03/13 = EchoThere is haarq-bj-[id number] shunt evidenced by the positive agitated saline study. 2. The left ventricle is normal in size and systolic function. The left ventricular ejection fraction is visually estimated to be 50-55%. 3. The right ventricle is mildly dilated with preserved systolic function. 4. The aortic valve is trileaflet and heavily calcified. There is moderate aortic stenosis with a valve area of 1.1 cm2. There is moderate aortic regurgitation. Review of Systems Review of Systems: All systems reviewed & are unremarkable except as noted in HPI and below Exam Narrative: GEN: Alert, oriented, not in distress. She can speak in sentences. She is wearing a high flow nasal cannula 60 L/min, 90%, much higher today. Saturation 91-92%. She has mild dyspnea. HEENT: pupils are equal, EOMI, symmetrical face; oral membranes moist, no oral lesions. NECK: Trachea is midline CHEST: Equal air entry, symmetric excursion, decreased breath sounds in bases, scattered inspiratory squeaks posteriorly, no wheezes. Exam is not better. CV: irregularly irregular S1S2 with no gallop ABD : (+) bowel sounds Extremities : no clubbing, cyanosis, edema, no calf tenderness PSYCH: normal thought and speech, gait is not tested Objective Data Vital Signs Vital Signs: Vital Signs - 24 hr 03/15/24 20:55 03/15/24 23:48 03/15/24 22:00 Temperature 36.8 C Pulse Rate 107 H 107 H 95 Respiratory Rate 22 H 27 H Blood Pressure 144/74 H Pulse Oximetry 99 99 Oxygen Delivery CPAP Oxygen Flow Rate Fraction of Inspired Oxygen 03/16/24 00:00 03/16/24 00:00 03/16/24 00:05 Temperature Pulse Rate 100 100 101 H Respiratory Rate 24 H 24 H Blood Pressure Pulse Oximetry 99 100 Oxygen Delivery CPAP Oxygen Flow Rate Fraction of Inspired Oxygen 100 03/16/24 01:20 03/16/24 01:35 03/16/24 01:36 Temperature Pulse Rate 92 96 105 H Respiratory Rate 20 23 H 21 H Blood Pressure Pulse Oximetry 99 Oxygen Delivery Oxygen Flow Rate Fraction of Inspired Oxygen 03/16/24 02:00 03/16/24 03:22 03/16/24 03:23 Temperature Pulse Rate 100 100 103 H Respiratory Rate 21 H Blood Pressure Pulse Oximetry 99 Oxygen Delivery CPAP Oxygen Flow Rate Fraction of Inspired Oxygen 100 03/16/24 04:08 03/16/24 04:00 03/16/24 06:00 Temperature 36.8 C Pulse Rate 101 H 85 91 Respiratory Rate 23 H 20 Blood Pressure 138/68 Pulse Oximetry 100 100 Oxygen Delivery CPAP Oxygen Flow Rate Fraction of Inspired Oxygen 03/16/24 06:55 03/16/24 06:55 03/16/24 07:05 Temperature Pulse Rate 92 92 94 Respiratory Rate 20 20 20 Blood Pressure Pulse Oximetry 92 Oxygen Delivery High Flow Nasal Cannula Oxygen Flow Rate 15 Fraction of Inspired Oxygen 03/16/24 08:00 03/16/24 08:20 03/16/24 08:00 Temperature 36.5 C Pulse Rate 100 Respiratory Rate 24 H Blood Pressure 129/78 Pulse Oximetry 94 91 Oxygen Delivery EMS-CPAP High Flow Therapy with Na Oxygen Flow Rate 15 Fraction of Inspired Oxygen 03/16/24 08:00 03/16/24 10:00 03/16/24 12:00 Temperature 36.6 C Pulse Rate 112 H 103 H 94 Respiratory Rate 22 H Blood Pressure 130/66 Pulse Oximetry 95 Oxygen Delivery Oxygen Flow Rate Fraction of Inspired Oxygen 03/16/24 12:00 03/16/24 13:05 03/16/24 13:15 Temperature Pulse Rate 104 H 99 Respiratory Rate 20 20 Blood Pressure Pulse Oximetry 97 Oxygen Delivery High Flow Therapy with Na Oxygen Flow Rate 13 Fraction of Inspired Oxygen 03/16/24 12:00 03/16/24 16:00 03/16/24 14:00 Temperature 36.6 C Pulse Rate 106 H 107 H 101 H Respiratory Rate 22 H Blood Pressure 123/64 Pulse Oximetry 84 L Oxygen Delivery Oxygen Flow Rate Fraction of Inspired Oxygen 03/16/24 16:00 03/16/24 16:00 03/16/24 18:00 Temperature Pulse Rate 106 H 105 H Respiratory Rate Blood Pressure Pulse Oximetry 90 Oxygen Delivery High Flow Therapy with Na Oxygen Flow Rate 15 Fraction of Inspired Oxygen 03/16/24 19:23 03/16/24 19:23 03/16/24 19:36 Temperature Pulse Rate 108 H 105 H Respiratory Rate 24 H 24 H Blood Pressure Pulse Oximetry 90 Oxygen Delivery High Flow Nasal Cannula Oxygen Flow Rate 15 Fraction of Inspired Oxygen Intake/Output Intake/Output: Intake & Output 03/13/24 03/14/24 03/15/24 03/16/24 23:59 23:59 23:59 23:59 Intake Total 370 2230 1190 1750 Output Total 1250 1550 1000 1500 Balance -880 680 190 250 Meds/Results Medications: Active Medications Generic Name Dose Route Start Last Admin Trade Name Freq PRN Reason Stop Dose Admin Acetaminophen 650 mg 03/16/24 17:50 Acetaminophen 325 Mg Tablet PO Q4H PRN Mild Pain (1-5) Or Fever Hydrocodone Bitart/Acetaminophen 1 tab 03/16/24 17:49 Hydrocodone/Acetaminophen (*Crx) 5-325 Mg Tablet PO Q6H PRN Pain Rated 6 or Greater Albuterol/Ipratropium 3 ml 03/12/24 20:15 03/15/24 12:25 Ipratropium 0.5 Mg/Albuterol Sulfate 2.5 Mg Ampul.Neb 3 Ml INHALATION 3 ml Q4H PRN Administration SHORTNESS OF BREATH Alprazolam 1 mg 03/13/24 21:00 03/15/24 21:03 Alprazolam (*Crx) 0.5 Mg Tablet PO 1 mg QHS HEIDE Administration Apixaban 5 mg 03/13/24 21:00 03/16/24 09:10 Apixaban 5 Mg Tablet PO 5 mg Q12HR HEIDE Administration Atorvastatin Calcium 10 mg 03/13/24 21:00 03/15/24 21:02 Atorvastatin 10 Mg Tablet PO 10 mg HS HEIDE Administration Bisacodyl 5 mg 03/12/24 20:10 03/16/24 09:10 Bisacodyl 5 Mg Tablet Ec PO 5 mg DAILY PRN Administration Constipation Bumetanide 2 mg 03/16/24 09:00 03/16/24 16:38 Bumetanide Inj 1 Mg/4 Ml Vial IV PUSH 2 mg BID HIEDE Administration Clopidogrel Bisulfate 75 mg 03/13/24 09:00 03/14/24 07:31 Clopidogrel Bisulfate 75 Mg Tablet PO Not Given DAILY HEIDE Colestipol HCl 2 gm 03/13/24 09:00 03/16/24 09:11 Colestipol Hcl 1 Gm Tablet PO 2 gm DAILY HEIDE Administration Diltiazem HCl 360 mg 03/13/24 09:00 03/16/24 09:11 Diltiazem Hcl Cd 180 Mg Cap.24hr PO 360 mg DAILY HEIDE Administration Doxycycline Hyclate 100 mg 03/14/24 21:00 03/16/24 09:10 Doxycycline Hyclate 100 Mg Tablet PO 03/17/24 21:01 100 mg Q12HR HEIDE Administration Ferrous Sulfate 325 mg 03/16/24 09:00 03/16/24 09:10 Ferrous Sulfate [address] PO 325 mg DAILY HEIDE Administration Piperacillin/Tazobactam/Dextrose 3.375 gm in 50 mls @ 100 mls/hr 03/13/24 08:00 03/16/24 15:38 Zosyn 3.375 Gm/Ns 50 Ml IVPB Infused Q6H HEIDE Infusion Ipratropium [employer] 0.5 mg 03/12/24 20:00 03/16/24 19:21 Ipratropium Br 0.02% Inh Soln 0.5 Mg/2.5 Ml Vial INHALATION 0.5 mg Q6HRT HEIDE Administration Levalbuterol HCl 0.63 mg 03/12/24 20:00 03/16/24 19:21 Levalbuterol Neb 1.25 Mg/3 Ml INHALATION 0.63 mg Q6HRT HEIDE Administration Lorazepam 0.5 mg 03/15/24 10:41 03/16/24 12:01 Lorazepam Inj (*Crx) 2 Mg/Ml Vial IV PUSH 0.5 mg Q6H PRN Administration Anxiety Perflutren Lipid Microsphere 0 ml 03/14/24 16:24 Perflutren Lipid Microspheres 1.5 Ml Vial Diluted To 10 Ml Total Volume IV PUSH 03/17/24 16:24 ONCE PRN adequate visualization Protocol Prednisone 40 mg 03/16/24 08:00 03/16/24 09:10 Prednisone 20 Mg Tablet PO 03/21/24 07:59 40 mg DAILY@0800 HEIDE Administration Sertraline HCl 200 mg 03/13/24 09:00 03/16/24 09:11 Sertraline Hcl 50 Mg Tablet PO 200 mg DAILY HEIDE Administration Sodium Chloride 1 spray 03/16/24 17:48 Saline 0.65% Teja Soln 44 Ml Btl NASAL Q6HR PRN Congestion Radiology Results: ITS Impressions Chest CTA 03/12/24 17:42 IMPRESSION: 1. No pulmonary embolism. 2. Bilateral large pleural effusion with adjacent atelectasis. 3. Mediastinal and bilateral hilar lymphadenopathy. 4. Nodule is seen in the right middle lobe and upper lobe. 6 months follow-up CT is advised. 5. Interstitial thickening in the apical areas which may indicate edema versus pneumonitis. Chest X-Ray 03/15/24 11:53 IMPRESSION: 1. Diffuse lung disease with worsening at the lung bases, likely a combination of pulmonary edema and atelectasis. 2. Worsened small right pleural effusion. 3. Cardiomegaly. Renal Ultrasound 03/15/24 20:32 IMPRESSION: No definite abnormal. Small simple cyst in the right kidney lower pole. Labs Labs: Laboratory Results - last 24 hr 03/15/24 03/16/24 19:10 03:32 WBC 4.5 RBC 3.37 L Hgb 9.4 L Hct 31.4 L MCV 93.2 MCH 27.9 MCHC 29.9 L RDW 16.0 H Plt Count 196 MPV 9.3 Immature Gran % (Auto) 0.7 H Neut % (Auto) 89.5 H Lymph % (Auto) 7.6 L [place] % (Auto) 2.2 L Eos % (Auto) 0.0 Baso % (Auto) 0.0 L Lymph # (Auto) 0.34 L [place] # (Auto) 0.1 Eos # (Auto) 0.0 Baso # (Auto) 0.0 Abs Immat Gran (auto) 0.03 Absolute Neuts (auto) 4.0 Absolute Nucleated RBC 0.000 Nucleated RBC % 0.0 Platelet Estimate Adequate Hypochromasia 1+ Anisocytosis 1+ Ovalocytes 1+ Schistocytes None seen Sodium 140 Potassium 3.5 Chloride 102 Carbon Dioxide 32 H Anion Gap 6 BUN 13 Creatinine 1.10 H Estim Creat Clear Calc 33 Estimated GFR 48 L Glucose 173 H Calcium 9.0 Total Bilirubin 0.6 AST 19 ALT 8 Alkaline Phosphatase 81 Total Creatine Kinase 60 C-Reactive Protein 1.0 Total Protein 8.0 Albumin 4.2 Procalcitonin 0.1
[2024-03-16] MEDS: ALPRAZolam (*CRX) 0.5 MG TABLET 1 MG PO (20:33)
[2024-03-16] MEDS: ATORVASTATIN 10 MG TABLET PO (20:33)
[2024-03-17] VITALS (30 sets, daily range): BP systolic 122–136; BP diastolic 48–98; PULSE 62–118; RESP 16–28; TEMP 36.3–36.8; O2SAT 88–97
[2024-03-17] MEDS: IPRATROPIUM BR 0.02% INH SOLN 0.5 MG/2.5 ML VIAL INHALATION ×4 (02:10→20:50)
[2024-03-17] MEDS: LEVALBUTEROL NEB 1.25 MG/3 ML 0.63 MG INHALATION ×4 (02:10→20:49)
[2024-03-17] MEDS: PIPERACILLN/TAZ 3.375GM/NS50ML 3.375 GM/50 ML BAG IVPB ×4 (02:53→21:35)
[2024-03-17 05:13] LABS: Basophils Percent Auto 0.1 % (0.2-1.2); Hematocrit 31.1 % (37.0-47.0); Hemoglobin 9.3 g/dL (12.0-15.0); Immature Granulocyte Absolute 0.05 K/mm3 (0.00-0.031); Immature Granulocyte Percent A 0.6 % (0-0.5); Lymphocytes Absolute Auto 0.73 K/mm3 (0.9-3.2); Lymphocytes Percent Auto 8.3 % (18.3-44.2); Mean Corpuscular HGB Conc 29.9 g/dl (32-36); Mean Corpuscular Hemoglobin 28.2 pg (26-34); Mean Corpuscular Volume 94.2 fl (80-100); Mean Platelet Volume 9.2 fl (7.4-10.4); Monocytes Absolute Auto 0.5 K/mm3 (0.1-0.6); Neutrophils Absolute Auto 7.5 K/mm3 (1.3-6.7); Platelet Count Result 235 k/mm3 (150-375); Red Cell Distribution Width 16.1 % (11.5-14.5); White Blood Count 8.8 K/mm3 (4.5-10.0)
[2024-03-17 05:24] LABS: Alanine Aminotransferase 10 U/L (6-35); Albumin Level 4.3 g/dL (3.5-5.1); Alkaline Phosphatase 76 U/L (38-126); Anion Gap 9 mmol/L (4-12); Aspartate Amino Transferase 24 U/L (14-36); Bilirubin,Total 0.7 mg/dL (0.2-1.3); Blood Urea Nitrogen 17 mg/dL (7-17); Carbon Dioxide 34 mmol/L (22-30); Chloride 99 mmol/L (98-107); Estimated CRCL calculation 36 ml/min; Estimated Glomerular Filt Rate 53; Glucose 140 mg/dL (65-110); Magnesium 2.1 mg/dL (1.6-2.3); Phosphorus 3.7 mg/dL (2.5-4.5); Potassium 3.5 mmol/L (3.4-5.0); Sodium 142 mmol/L (137-145)
[2024-03-17 05:39] LABS: Anisocytosis 1+; Hypochromasia 1+; Platelet Estimate Adequate (Adequate); Schistocytes None Seen
[2024-03-17] MEDS: SERTRALINE HCL 50 MG TABLET 200 MG PO (09:01)
[2024-03-17] MEDS: BISACODYL 5 MG TABLET EC PO (09:01)
[2024-03-17] MEDS: predniSONE 20 MG TABLET 40 MG PO (09:02)
[2024-03-17] MEDS: ACETAMINOPHEN 325 MG TABLET 650 MG PO ×2 (09:02→16:59)
[2024-03-17] MEDS: BUMETANIDE INJ 1 MG/4 ML VIAL 2 MG IV PUSH ×2 (09:02→16:59)
[2024-03-17] MEDS: COLESTIPOL HCL 1 GM TABLET 2 GM PO (09:02)
[2024-03-17] MEDS: DOXYCYCLINE HYCLATE 100 MG TABLET PO ×2 (09:02→21:36)
[2024-03-17] MEDS: dilTIAZem HCL CD 180 MG CAP.24HR 360 MG PO (09:02)
[2024-03-17] MEDS: FERROUS SULFATE 325 MG TABLET DR PO (09:02)
[2024-03-17] MEDS: ENOXAPARIN 80 MG/0.8 ML SYRINGE 75 MG SUB-Q (09:08)
--- NOTE | 2024-03-17 16:21 | P.PNIM_ITS ---
Progress Note: A&P Assessment and Plan (1) Acute on chronic respiratory failure: Qualifiers: Respiratory failure complication: hypoxia Qualified Code(s): J96.21 - Acute and chronic respiratory failure with hypoxia Code(s): J96.20 - Acute and chronic respiratory failure, unspecified whether with hypoxia or hypercapnia Status: Acute Assessment and Plan: Patient here for SOB. She wears 4L O2 during the day and 6L with sleeping. She does not have KAREEM. She is very inactive at home due to DELGADO. WBC normal. DDimer 2.67. Troponin negative x1. BNP 940. COVID, influenza and RSV PCR negative. ABG 7.47/41/125 on 15L NRBM CXR showing mild pulmonary edema and small pleural effusion. CTA Chest negative for PE but with bilateral large pleural effusion with atelectasis. Mediastinal and bilateral hilar lymphadenopathy noted. RML and RUL pulmonary nodule noted. Apical areas with edema vs pneumonitis. She was given Lasix 80mg IV and Duoneb in the ED Suspect CHF exacerbation and related to pleural effusions. Can not exclude PNA. She was started on Lasix IV but held for worsening renal function Echo as below but does show right to left shunt. Hypoxia initially better at 8L but worsening. Related to worsening shunt? Pleural effusions? CHF? Pulm following and appreciate their input. Able to resume diuretic therapy. Wean O2 as tolerated. Continue bronchodilators and steroids. (2) CHF (congestive heart failure): Code(s): I50.9 - Heart failure, unspecified Status: Acute Assessment and Plan: Echo showing right to left shunt by positive agitated saline study, normal LV size and systolic fxn with EF 50-55%, dilated RV with preserved systolic function and moderate , moderate AI and mild MR. In Mar 2023, EF 60-65%, Grade II diastolic dysfunction, akinetic basal inferior wall and moderate , moderate MR and mild pulmonary HTN. Imaging as above. BNP 2940 UOP not accurate. Continue IV Bumex. Monitor UOP, renal fxn and resp status. (3) Chronic kidney disease, stage 3: Code(s): N18.30 - Chronic kidney disease, stage 3 unspecified Status: Chronic Assessment and Plan: BUN and Cr normal but CrCl low in the 30's chronically. BUN 12 but Cr up to 1.2 Probably related to diuresis but she did receive contrast 03/12. Consider also related to hypoxia. Renal US showing no significant abnormalities. Urine studies are prerenal. Cr at 1 today. Continue to monitor. Follow (4) Pleural effusion: Code(s): J90 - Pleural effusion, not elsewhere classified Status: Acute Assessment and Plan: Imaging as above. She has bilateral thoracentsis ordered but on hold waiting for Plavix to wash out. Probably related to CHF but consider malignancy given the lung nodules noted. Plan for thoracentesis on 03/19. Stop Eliquis today and start Lovenox (use daily since her CrCl close to cut off and Q12H would put her at a higher risk of bleeding). Lovenox for today and tomorrow. Resume Eliquis Tuesday night after thoracentesis. Appropriate pleural fluid studies ordered including Pathology (5) Atrial fibrillation: Code(s): I48.91 - Unspecified atrial fibrillation Status: Chronic Assessment and Plan: Heart rate midly elevated 90-110 range. TSH normal She has been resumed on her Eliquis (but now on Lovenox) She remains on Diltiazem. Monitor on tele. (6) Pneumonia: Qualifiers: Laterality: bilateral Lung location: unspecified part of lung Pneumonia type: due to unspecified organism Qualified Code(s): J18.9 - Pneumonia, unspecified organism Code(s): J18.9 - Pneumonia, unspecified organism Status: Acute Assessment and Plan: Imaging as above. WBC normal. BCx NGTD. MRSA nasal swab negative. Started on Zosyn and Doxy. Doxy x 5 days. (7) Pulmonary nodules: Code(s): R91.8 - Other nonspecific abnormal finding of lung field Status: Acute Assessment and Plan: CT showing RML 7mm nodule that is larger than prior imaging and a right apical nodule at 1cm. Also with mediastinal and bilateral hilar adenopathy. As above. Will need to be followed as outpatient. Plan Anemia - Chronic for the past year with Hgb 9-10 range mostly. Hgb stable and within her baseline. Iron studies showing normal iron and TIBC but low iron sat at 8%. Ferritin 45. B12 319 and MMA ordered. Folate normal. Add iron supplements DVT prophylaxis - Lovenox Code Status - DNR Subjective Date/time seen: 03/17/24 16:21 Interval history: 78yo female with chronic respiratory failure, CKD 3, HTN and pAFib here for shortness of breath. Wore her bipap last night. Denies feeling SOB. SLept poorly. No CP . Has a nonproductive cough Eating okay. Exam Narrative: AF 97.7 122/48 101 20 91% HFNC Gen - NARD Chest - decreased BS in the bases with scattered inspiratory rhonchi. no conversational dyspnea. CV - irregularly irregular. Tele showing AFib with stable rate Abd - Soft, NT/ND, Positive BS Ext - No pedal edema Psych - Nml mood and affect Skin - Warm and dry Objective Data Vital Signs Vital Signs: Vital Signs - 24 hr 03/16/24 18:00 03/16/24 19:23 03/16/24 19:23 Temperature Pulse Rate 105 H 108 H Respiratory Rate 24 H Blood Pressure Pulse Oximetry 90 Oxygen Delivery High Flow Nasal Cannula Oxygen Flow Rate 15 Fraction of Inspired Oxygen 03/16/24 19:36 03/16/24 20:00 03/16/24 21:30 Temperature 97.6 F Pulse Rate 105 H 104 H 93 Respiratory Rate 24 H 20 22 H Blood Pressure 134/82 Pulse Oximetry 92 96 Oxygen Delivery CPAP Oxygen Flow Rate Fraction of Inspired Oxygen 03/16/24 23:26 03/17/24 00:12 03/16/24 20:00 Temperature 97.8 F 98.2 F Pulse Rate 112 H 110 H 109 H Respiratory Rate 20 22 H Blood Pressure 144/83 H 136/98 H Pulse Oximetry 96 97 Oxygen Delivery Oxygen Flow Rate Fraction of Inspired Oxygen 03/16/24 22:00 03/16/24 20:00 03/17/24 00:17 Temperature Pulse Rate 112 H 104 H 110 H Respiratory Rate 20 20 Blood Pressure Pulse Oximetry 92 97 Oxygen Delivery High Flow Nasal Cannula CPAP Oxygen Flow Rate 15 Fraction of Inspired Oxygen 100 03/17/24 00:00 03/17/24 02:07 03/17/24 02:10 Temperature Pulse Rate 102 H 97 105 H Respiratory Rate 28 H 26 H Blood Pressure Pulse Oximetry 96 Oxygen Delivery CPAP Oxygen Flow Rate Fraction of Inspired Oxygen 03/17/24 02:23 03/17/24 02:00 03/17/24 04:00 Temperature 97.7 F Pulse Rate 96 101 H 94 Respiratory Rate 22 H 20 Blood Pressure 122/68 Pulse Oximetry 96 Oxygen Delivery Oxygen Flow Rate Fraction of Inspired Oxygen 03/17/24 04:00 03/17/24 04:00 03/17/24 05:42 Temperature Pulse Rate 94 85 91 Respiratory Rate 20 Blood Pressure Pulse Oximetry 96 Oxygen Delivery CPAP Oxygen Flow Rate Fraction of Inspired Oxygen 90 03/17/24 07:41 03/17/24 08:57 03/17/24 09:07 Temperature 97.7 F Pulse Rate 94 92 98 Respiratory Rate 22 H 20 20 Blood Pressure 133/72 Pulse Oximetry 96 Oxygen Delivery Oxygen Flow Rate Fraction of Inspired Oxygen 03/17/24 09:14 03/17/24 09:37 03/17/24 08:00 Temperature Pulse Rate Respiratory Rate Blood Pressure Pulse Oximetry 88 L 93 93 Oxygen Delivery High Flow Nasal Cannula High Flow Therapy with Na CPAP Oxygen Flow Rate 15 60 8 Fraction of Inspired Oxygen 90 100 03/17/24 08:00 03/17/24 10:00 03/17/24 11:20 Temperature 97.7 F Pulse Rate 84 92 107 H Respiratory Rate 24 H Blood Pressure 122/48 L Pulse Oximetry 95 Oxygen Delivery Oxygen Flow Rate Fraction of Inspired Oxygen 03/17/24 12:00 03/17/24 12:00 03/17/24 14:07 Temperature Pulse Rate 116 H Respiratory Rate Blood Pressure Pulse Oximetry 93 91 Oxygen Delivery High Flow Therapy with Na High Flow Therapy with Na Oxygen Flow Rate 60 60 Fraction of Inspired Oxygen 90 90 03/17/24 14:07 03/17/24 14:33 Temperature Pulse Rate 102 H 101 H Respiratory Rate 20 20 Blood Pressure Pulse Oximetry Oxygen Delivery Oxygen Flow Rate Fraction of Inspired Oxygen Intake/Output Intake/Output: Intake & Output 03/14/24 03/15/24 03/16/24 03/17/24 23:59 23:59 23:59 23:59 Intake Total 2230 1190 1800 460 Output Total 1550 1000 1500 200 Balance 680 190 300 260 Meds/Results Medications: Active Medications Generic Name Dose Route Start Last Admin Trade Name Freq PRN Reason Stop Dose Admin Acetaminophen 650 mg 03/16/24 17:50 03/17/24 09:02 Acetaminophen 325 Mg Tablet PO 650 mg Q4H PRN Administration Mild Pain (1-5) Or Fever Hydrocodone Bitart/Acetaminophen 1 tab 03/16/24 17:49 Hydrocodone/Acetaminophen (*Crx) 5-325 Mg Tablet PO Q6H PRN Pain Rated 6 or Greater Albuterol/Ipratropium 3 ml 03/12/24 20:15 03/15/24 12:25 Ipratropium 0.5 Mg/Albuterol Sulfate 2.5 Mg Ampul.Neb 3 Ml INHALATION 3 ml Q4H PRN Administration SHORTNESS OF BREATH Alprazolam 1 mg 03/13/24 21:00 03/16/24 20:33 Alprazolam (*Crx) 0.5 Mg Tablet PO 1 mg QHS HEIDE Administration Apixaban 5 mg 03/13/24 21:00 03/16/24 20:33 Apixaban 5 Mg Tablet PO 5 mg Q12HR HEIDE Administration Atorvastatin Calcium 10 mg 03/13/24 21:00 03/16/24 20:33 Atorvastatin 10 Mg Tablet PO 10 mg HS HEIDE Administration Bisacodyl 5 mg 03/12/24 20:10 03/17/24 09:01 Bisacodyl 5 Mg Tablet Ec PO 5 mg DAILY PRN Administration Constipation Bumetanide 2 mg 03/16/24 09:00 03/17/24 09:02 Bumetanide Inj 1 Mg/4 Ml Vial IV PUSH 2 mg BID HEIDE Administration Clopidogrel Bisulfate 75 mg 03/13/24 09:00 03/14/24 07:31 Clopidogrel Bisulfate 75 Mg Tablet PO Not Given DAILY HEIDE Colestipol HCl 2 gm 03/13/24 09:00 03/17/24 09:02 Colestipol Hcl 1 Gm Tablet PO 2 gm DAILY HEIDE Administration Diltiazem HCl 360 mg 03/13/24 09:00 03/17/24 09:02 Diltiazem Hcl Cd 180 Mg Cap.24hr PO 360 mg DAILY HEIDE Administration Doxycycline Hyclate 100 mg 03/14/24 21:00 03/17/24 09:02 Doxycycline Hyclate 100 Mg Tablet PO 03/17/24 21:01 100 mg Q12HR HEIDE Administration Enoxaparin Sodium 75 mg 03/17/24 09:00 03/17/24 09:08 Enoxaparin 80 Mg/0.8 Ml Syringe SUB-Q 03/18/24 09:01 75 mg Q24H HEIDE Administration Ferrous Sulfate 325 mg 03/16/24 09:00 03/17/24 09:02 Ferrous Sulfate [address] PO 325 mg DAILY HEIDE Administration Piperacillin/Tazobactam/Dextrose 3.375 gm in 50 mls @ 100 mls/hr 03/13/24 08:00 03/17/24 13:36 Zosyn 3.375 Gm/Ns 50 Ml IVPB 100 mls/hr Q6H HEIDE Administration Ipratropium Proctor 0.5 mg 03/12/24 20:00 03/17/24 14:06 Ipratropium Br 0.02% Inh Soln 0.5 Mg/2.5 Ml Vial INHALATION 0.5 mg Q6HRT HEIDE Administration Levalbuterol HCl 0.63 mg 03/12/24 20:00 03/17/24 14:06 Levalbuterol Neb 1.25 Mg/3 Ml INHALATION 0.63 mg Q6HRT HEIDE Administration Lorazepam 0.5 mg 03/15/24 10:41 03/16/24 12:01 Lorazepam Inj (*Crx) 2 Mg/Ml Vial IV PUSH 0.5 mg Q6H PRN Administration Anxiety Perflutren Lipid Microsphere 0 ml 03/14/24 16:24 Perflutren Lipid Microspheres 1.5 Ml Vial Diluted To 10 Ml Total Volume IV PUSH 03/17/24 16:24 ONCE PRN adequate visualization Protocol Prednisone 40 mg 03/16/24 08:00 03/17/24 09:02 Prednisone 20 Mg Tablet PO 03/21/24 07:59 40 mg DAILY@0800 HEIDE Administration Sertraline HCl 200 mg 03/13/24 09:00 03/17/24 09:01 Sertraline Hcl 50 Mg Tablet PO 200 mg DAILY HEIDE Administration Sodium Chloride 1 spray 03/16/24 17:48 Saline 0.65% Teja Soln 44 Ml Btl NASAL Q6HR PRN Congestion Radiology Results: ITS Impressions Chest CTA 03/12/24 17:42 IMPRESSION: 1. No pulmonary embolism. 2. Bilateral large pleural effusion with adjacent atelectasis. 3. Mediastinal and bilateral hilar lymphadenopathy. 4. Nodule is seen in the right middle lobe and upper lobe. 6 months follow-up CT is advised. 5. Interstitial thickening in the apical areas which may indicate edema versus pneumonitis. Chest X-Ray 03/15/24 11:53 IMPRESSION: 1. Diffuse lung disease with worsening at the lung bases, likely a combination of pulmonary edema and atelectasis. 2. Worsened small right pleural effusion. 3. Cardiomegaly. Renal Ultrasound 03/15/24 20:32 IMPRESSION: No definite abnormal. Small simple cyst in the right kidney lower pole. Labs Labs: Laboratory Results - last 24 hr 03/17/24 04:16 WBC 8.8 RBC 3.30 L Hgb 9.3 L Hct 31.1 L MCV 94.2 MCH 28.2 MCHC 29.9 L RDW 16.1 H Plt Count 235 MPV 9.2 Immature Gran % (Auto) 0.6 H Neut % (Auto) 85.0 H Lymph % (Auto) 8.3 L [place] % (Auto) 6.0 Eos % (Auto) 0.0 Baso % (Auto) 0.1 L Lymph # (Auto) 0.73 L [place] # (Auto) 0.5 Eos # (Auto) 0.0 Baso # (Auto) 0.0 Abs Immat Gran (auto) 0.05 H Absolute Neuts (auto) 7.5 H Absolute Nucleated RBC 0.000 Nucleated RBC % 0.0 Platelet Estimate Adequate Hypochromasia 1+ Anisocytosis 1+ Schistocytes None seen Sodium 142 Potassium 3.5 Chloride 99 Carbon Dioxide 34 H Anion Gap 9 BUN 17 Creatinine 1.00 Estim Creat Clear Calc 36 Estimated GFR 53 L Glucose 140 H Calcium 9.0 Phosphorus 3.7 Magnesium 2.1 Total Bilirubin 0.7 AST 24 ALT 10 Alkaline Phosphatase 76 Total Protein 8.0 Albumin 4.3
[2024-03-17] MEDS: DORNASE ALFA INH SOLN 1 MG/ML 2.5 ML AMP 2.5 MG INHALATION (20:50)
[2024-03-17] MEDS: ALPRAZolam (*CRX) 0.5 MG TABLET 1 MG PO (21:36)
[2024-03-17] MEDS: ATORVASTATIN 10 MG TABLET PO (21:36)
[2024-03-18] VITALS (26 sets, daily range): BP systolic 113–137; BP diastolic 40–82; PULSE 84–112; RESP 16–24; TEMP 36.4–36.8; O2SAT 90–98
[2024-03-18] MEDS: PIPERACILLN/TAZ 3.375GM/NS50ML 3.375 GM/50 ML BAG IVPB ×4 (02:12→20:24)
[2024-03-18] MEDS: LEVALBUTEROL NEB 1.25 MG/3 ML 0.63 MG INHALATION ×4 (03:20→20:44)
[2024-03-18] MEDS: IPRATROPIUM BR 0.02% INH SOLN 0.5 MG/2.5 ML VIAL INHALATION ×4 (03:21→20:44)
[2024-03-18 04:56] LABS: Basophils Percent Auto 0.1 % (0.2-1.2); Hematocrit 29.9 % (37.0-47.0); Immature Granulocyte Absolute 0.06 K/mm3 (0.00-0.031); Immature Granulocyte Percent A 0.8 % (0-0.5); Lymphocytes Absolute Auto 1.23 K/mm3 (0.9-3.2); Lymphocytes Percent Auto 15.5 % (18.3-44.2); Mean Corpuscular HGB Conc 30.1 g/dl (32-36); Mean Corpuscular Hemoglobin 27.8 pg (26-34); Mean Corpuscular Volume 92.3 fl (80-100); Mean Platelet Volume 8.8 fl (7.4-10.4); Monocytes Absolute Auto 0.5 K/mm3 (0.1-0.6); Monocytes Percent Auto 6.2 % (2.6-8.5); Neutrophils Absolute Auto 6.1 K/mm3 (1.3-6.7); Neutrophils Percent Auto 77.4 % (45.5-73.1); Platelet Count Result 220 k/mm3 (150-375); Red Blood Count 3.24 M/mm3 (4.2-5.4); Red Cell Distribution Width 15.9 % (11.5-14.5); White Blood Count 7.9 K/mm3 (4.5-10.0)
[2024-03-18 05:13] LABS: Alanine Aminotransferase 11 U/L (6-35); Albumin Level 4.1 g/dL (3.5-5.1); Alkaline Phosphatase 74 U/L (38-126); Anion Gap 7 mmol/L (4-12); Aspartate Amino Transferase 23 U/L (14-36); Bilirubin,Total 0.7 mg/dL (0.2-1.3); Blood Urea Nitrogen 17 mg/dL (7-17); Calcium 8.8 mg/dL (8.4-10.2); Carbon Dioxide 33 mmol/L (22-30); Chloride 100 mmol/L (98-107); Estimated CRCL calculation 36 ml/min; Estimated Glomerular Filt Rate 53; Glucose 134 mg/dL (65-110); Potassium 2.8 mmol/L (3.4-5.0); Sodium 140 mmol/L (137-145)
[2024-03-18] MEDS: SODIUM CHLOR 3% 15 ML NEB (RESPIRATORY THERAPY) 6 ML INHALATION (05:35)
--- NOTE | 2024-03-18 05:51 | PCRCNOTE ---
7% NS given to patient to induce sputum, but pt still has an dry nonproductive cough. No sputum was obtained.
[2024-03-18] MEDS: POTASSIUM CHLORIDE 20 MEQ ER TABLET 40 MEQ PO (05:58)
[2024-03-18] MEDS: POTASSIUM CHLORIDE INJ 40 MEQ in SODIUM CHLORIDE 0.9% IV 500 ML 130 MEQ IVPB (06:42)
[2024-03-18] MEDS: dilTIAZem HCL CD 180 MG CAP.24HR 360 MG PO (08:02)
[2024-03-18] MEDS: SERTRALINE HCL 50 MG TABLET 200 MG PO (08:02)
[2024-03-18] MEDS: COLESTIPOL HCL 1 GM TABLET 2 GM PO (08:02)
[2024-03-18] MEDS: FERROUS SULFATE 325 MG TABLET DR PO (08:03)
[2024-03-18] MEDS: BUMETANIDE INJ 1 MG/4 ML VIAL 2 MG IV PUSH ×2 (08:03→17:43)
[2024-03-18] MEDS: ACETAMINOPHEN 325 MG TABLET 650 MG PO (08:03)
[2024-03-18] MEDS: ENOXAPARIN 80 MG/0.8 ML SYRINGE 75 MG SUB-Q (08:03)
[2024-03-18] MEDS: predniSONE 20 MG TABLET 40 MG PO (08:03)
[2024-03-18] MEDS: DORNASE ALFA INH SOLN 1 MG/ML 2.5 ML AMP 2.5 MG INHALATION (09:04)
--- NOTE | 2024-03-18 11:00 | PM.PNPUL ---
Progress Note: A&P Assessment and Plan (1) Acute on chronic respiratory failure: Qualifiers: Respiratory failure complication: hypoxia Qualified Code(s): J96.21 - Acute and chronic respiratory failure with hypoxia Code(s): J96.20 - Acute and chronic respiratory failure, unspecified whether with hypoxia or hypercapnia Status: Acute Assessment and Plan: O2 need remains high, now getting thick secretions out of airways, with sputum that is consistent with Aspergillus. Sat 95%, Air Vo, 60 L /min & 90%. No CO2 retention. She has a [id number] shunt seen on echo Dec 3, likely due her acute process. Pharmacy allowed 2 doses Dornase adrian, reserved for CF patients normally. Continue 3% saline nebulized, Cornet valve, vibratory vest. Using vest followed by Cornet tid and Cornet on its own during the day; 3% saline and nebulized Mucomyst to continue. Oral fluids. Up in a chair. (2) COPD (chronic obstructive pulmonary disease): Qualifiers: COPD type: unspecified COPD Qualified Code(s): J44.9 - Chronic obstructive pulmonary disease, unspecified Code(s): J44.9 - Chronic obstructive pulmonary disease, unspecified Status: Acute Assessment and Plan: At home uses Stiolto 2.5-2.5 one puff a day for long standing COPD, and p.r.n. albuterol 3-4 times a day. Oral prednisone. She is expectorating increased amount of brown plugs in sputum, red tinged fluid. Sh is on blood thinners. Extended respiratory pathogen panel is pending, thoracentesis is pending. (3) SOB (shortness of breath): Code(s): R06.02 - Shortness of breath Status: Acute Assessment and Plan: She remains short of breath, more than experiences has at baseline, however at rest, she is comfortable. (4) History of tobacco abuse: Code(s): Z87.891 - Personal history of nicotine dependence Status: Acute Assessment and Plan: Smoked for decades, none since September 2022 (5) Pulmonary nodules: Code(s): R91.8 - Other nonspecific abnormal finding of lung field Status: Acute Assessment and Plan: 7 mm RML nodule needs [address] chest as this has grown; the 1 cm nodule in the right apex is stable. Plan 1. Her saturation may drop when she is working to expectorate secretions. She may have some plugging of airways, and this may improve with more coughing, Cornet use, efforts to clear her airway. Getting up in chair may also help. 2. In Mar 2023, she had COVID and Aspergillus recovered on sputum, was treated with voriconazole 14 days for colonization. She tells me that she feels the same as she did last year at the time. I will start empiric voriconazole awaiting her sputum results due to the high O2 need. 3. Continue cornet vibratory valve, 3% saline nebs, vibratory vest. 4. She now has expectorated sputum which is being sent for AFB, fungal, and bacterial pathogens. The extended respiratory pathogen panel is pending, collected Mar 15; TB serum test, QuantiFERON GOLD was sent today. . Her swab for COVID SARS-CoV-2 was negative Dec 2. 5. Thoracentesis planned for tomorrow Dec 9. 6. Continue po prednisone, oral doxycycline, COPD inhalers; 7. [address] follow up for nodules. d/w dr Gross and patients's RN Subjective Date/time seen: 03/18/24 11:00 Interval history: 03/18: Still on Air Vo 60L & 90%, improved saturation, 95%. sometimes, her saturaiotn drops into the 70s. Resp rate 20-24, no fever. CXR last night showed some improvement. She had Dornase adrian mucolytic, was fitted for the vibratory vest, and is using Cornet bonnie. She has expectorated sputum in a container by the bed, reddish liquid with dark plugs, consistent with Aspergillus. She notes that she feels very similar to how she felt last March, when she had Aspergillus in her sputum. Procalcitonin Dec 6 was 0.6, normal. This is not consistent with bacterial infection. K+ 2.8 today, replaced. 03/17: The patient is on much higher amounts of O2. Used CPAP overnight, today used non-rebreather,, now on high flow nasal cannula. Saturation is 90-91% using 60 L/min and FiO2 90%. this is the highest amount of O2 she has been on this admission. A year ago, she had COVID, low O2 saturation, also had a thoracentesis, grew Aspergillus on sputum, was treated with voriconazole x 14 days. new; 03/15/24; Maria Dolores Henry is 78 years old, followed by our practice, has COPD, chronic respiratory failure, uses O2 at home. She is using 4-5 L/min at rest, 6 L/min with exertion and sleep. She saw Dr Donato in the office Mar 05, and was stable according to his note. Her COPD regimen included Stiolto Respimat 2.5-2.51 puff daily and albuterol rescue inhaler 3-4 times per day, guaifenesin 600 mg every other day and Lasix 40 mg b.i.d.. She has not smoked since September of 2023. She has no secondhand tobacco exposure. She is up-to-date on all vaccinations.She was admitted to [place] in Mar 2023 with pneumonia, pleural effusions, COVID; sputum grew out Aspergillus without focal lung consolidations or cavitations and she was treated with voriconazole for 14 days for presumed colonization Mar 2023. . She was admitted on TuesdayMar 12. She says that she has not been feeling well for a few weeks. She is up-to-date on her vaccinations influenza, RSV, COVID. on admission, the PCR for these (-). At first, her sputum was brown but now she has a barking cough, says she feels like she has a croupy cough. ABG = no CO2 retention, pH 7.47, pCO2 41, PO2 125 on 15 L non-rebreather mask.. CXR = no infiltrate, mainly effusion, CTA on March 14 shows large effusion on the right smaller effusion on the left and a 7 mm nodule in the right anterior lung. Treated with Zosyn and doxycycline, now po doxycycline. She has a higher O2 requirement today, up to 15 L /min. She has no fever, no sputum now. Her echo 03/13 shows a right to left shunt. not sure how significant this is, but shunts cause hypoxemia. WBC = 7.1 Mar 12, now 7.4k; D-Dimer 2.67. Negative troponin. BNP - 940. Mar 15 CXR = more pulmonary edema, right pleural effusion, no infiltrate. WBC is stable, 7.4k. She was given Lasix 80mg IV and Duoneb in the ED Suspect CHF exacerbation and related to pleural effusions. Can not exclude PNA. DATA: * 03/17/24; CXR; Airspace opacities in the lower lung zones with interval improvement, consistent with atelectasis versus pneumonia. 2. Mild pulmonary edema. 3. Cardiomegaly. * 03/12/2024 CXR; There is a diffuse interstitial pattern in the lungs, consistent with pulmonary edema. There is mild atelectasis at the lung bases. There are small pleural effusions. No pneumothorax. Cardiomegaly is noted. IMPRESSION: 1. Mild pulmonary edema. 2. Small pleural effusions. 3. Cardiomegaly. * 03/13/24 chest CTA - Nodule is seen in the right middle lobe measuring 7 mm. 6 months follow-up advised. This nodule is larger than the previous study. Interstitial thickening is seen in the apical area which may indicate pneumonitis versus edema. Minimal atelectatic changes seen in the middle lobe. Nodule is seen in the right apical area measuring 1 cm. No pulmonary masses. No pneumothorax. Bilateral large pleural effusion with adjacent atelectasis seen. . VISUALIZED UPPER ABDOMEN: Status post cholecystectomy. small left kidney cyst. Possible left kidney lower pole a stone. Otherwise, the visualized upper abdomen is normal. MUSCULOSKELETAL: Soft tissues: The superficial soft tissues are normal. Bones: Age appropriate degenerative changes of the spine. Old compression fracture is seen in T7. IMPRESSION: 1. No pulmonary embolism. 2. Bilateral large pleural effusion with adjacent atelectasis. 3. Mediastinal and bilateral hilar lymphadenopathy. 4. Nodule is seen in the right middle lobe and upper lobe. 6 months follow-up CT is advised. 5. Interstitial thickening in the apical areas which may indicate edema versus pneumonitis. * 03/13 = EchoThere is [id number] shunt evidenced by the positive agitated saline study. 2. The left ventricle is normal in size and systolic function. The left ventricular ejection fraction is visually estimated to be 50-55%. 3. The right ventricle is mildly dilated with preserved systolic function. 4. The aortic valve is trileaflet and heavily calcified. There is moderate aortic stenosis with a valve area of 1.1 cm2. There is moderate aortic regurgitation. Review of Systems Review of Systems: Eating adeuqalty, slept better not on CPAP last night, continued to use high flow O2 All systems reviewed & are unremarkable except as noted in HPI and below Exam Narrative: GEN: Alert, oriented, not in distress. She can speak in sentences; wearing a high flow nasal cannula 60 L/min, 90%, with improved saturation 95%. NECK: Trachea is midline CHEST: Equal air entry, symmetric excursion, improved air movement; decreased BS Right base; fewer crackles, no squeaks or wheezes. Exam is better. CV: irregularly irregular S1S2 with no gallop ABD : (+) bowel sounds Extremities : no clubbing, cyanosis, or edema, no calf tenderness PSYCH: normal thought and speech, gait is not tested Objective Data Vital Signs Vital Signs: Vital Signs - 24 hr 03/17/24 11:20 03/17/24 12:00 03/17/24 12:00 Temperature 36.5 C Pulse Rate 107 H 116 H Respiratory Rate 24 H Blood Pressure 122/48 L Pulse Oximetry 95 93 Oxygen Delivery High Flow Therapy with Na Oxygen Flow Rate 60 Fraction of Inspired Oxygen 90 03/17/24 14:07 03/17/24 14:07 03/17/24 14:33 Temperature Pulse Rate 102 H 101 H Respiratory Rate 20 20 Blood Pressure Pulse Oximetry 91 Oxygen Delivery High Flow Therapy with Na Oxygen Flow Rate 60 Fraction of Inspired Oxygen 90 03/17/24 16:31 03/17/24 14:00 03/17/24 16:00 Temperature 36.3 C L Pulse Rate 101 H 108 H Respiratory Rate 16 Blood Pressure 130/68 Pulse Oximetry 94 94 Oxygen Delivery High Flow Therapy with Na Oxygen Flow Rate 60 Fraction of Inspired Oxygen 90 03/17/24 16:00 03/17/24 18:50 03/17/24 18:00 Temperature 36.3 C L Pulse Rate 104 H 118 H 116 H Respiratory Rate 22 H Blood Pressure 134/64 Pulse Oximetry 90 Oxygen Delivery Oxygen Flow Rate Fraction of Inspired Oxygen 03/17/24 20:51 03/17/24 21:23 03/17/24 19:50 Temperature Pulse Rate 62 118 H Respiratory Rate 20 22 H Blood Pressure Pulse Oximetry 95 90 Oxygen Delivery High Flow Therapy with Na High Flow Therapy with Na Oxygen Flow Rate 60 60 Fraction of Inspired Oxygen 90 91 03/18/24 00:00 03/18/24 00:20 03/18/24 03:21 Temperature 36.8 C Pulse Rate 101 H 101 H 88 Respiratory Rate 19 19 20 Blood Pressure 126/82 Pulse Oximetry 96 96 Oxygen Delivery High Flow Therapy with Na Oxygen Flow Rate 60 Fraction of Inspired Oxygen 91 03/18/24 03:29 03/17/24 20:00 03/17/24 22:00 Temperature Pulse Rate 114 H 107 H Respiratory Rate Blood Pressure Pulse Oximetry 96 Oxygen Delivery High Flow Therapy with Na Oxygen Flow Rate 60 Fraction of Inspired Oxygen 90 03/18/24 00:00 03/18/24 02:00 03/18/24 03:35 Temperature Pulse Rate 99 94 89 Respiratory Rate 20 Blood Pressure Pulse Oximetry Oxygen Delivery Oxygen Flow Rate Fraction of Inspired Oxygen 03/18/24 04:24 03/18/24 04:24 03/18/24 05:35 Temperature 36.4 C Pulse Rate 93 93 85 Respiratory Rate 24 H 24 H 20 Blood Pressure 137/40 L Pulse Oximetry 96 96 Oxygen Delivery High Flow Therapy with Na Oxygen Flow Rate 60 Fraction of Inspired Oxygen 91 03/18/24 05:48 03/18/24 04:00 03/18/24 06:00 Temperature Pulse Rate 87 88 94 Respiratory Rate 20 Blood Pressure Pulse Oximetry Oxygen Delivery Oxygen Flow Rate Fraction of Inspired Oxygen 03/18/24 08:00 03/18/24 08:57 03/18/24 08:57 Temperature 36.5 C Pulse Rate 100 89 Respiratory Rate 20 20 Blood Pressure 113/68 Pulse Oximetry 94 94 Oxygen Delivery High Flow Therapy with Na Oxygen Flow Rate 60 Fraction of Inspired Oxygen 91 03/18/24 09:08 03/18/24 08:00 03/18/24 08:00 Temperature Pulse Rate 84 102 H Respiratory Rate 20 Blood Pressure Pulse Oximetry 94 Oxygen Delivery High Flow Therapy with Na Oxygen Flow Rate 60 Fraction of Inspired Oxygen 91 03/18/24 10:00 Temperature Pulse Rate 112 H Respiratory Rate Blood Pressure Pulse Oximetry Oxygen Delivery Oxygen Flow Rate Fraction of Inspired Oxygen Intake/Output Intake/Output: Intake & Output 03/15/24 03/16/24 03/17/24 03/18/24 23:59 23:59 23:59 23:59 Intake Total 1190 1800 1070 470 Output Total 1000 1500 1200 500 Balance 190 300 -130 -30 Meds/Results Medications: Active Medications Generic Name Dose Route Start Last Admin Trade Name Freq PRN Reason Stop Dose Admin Acetaminophen 650 mg 03/16/24 17:50 03/18/24 08:03 Acetaminophen 325 Mg Tablet PO 650 mg Q4H PRN Administration Mild Pain (1-5) Or Fever Hydrocodone Bitart/Acetaminophen 1 tab 03/16/24 17:49 Hydrocodone/Acetaminophen (*Crx) 5-325 Mg Tablet PO Q6H PRN Pain Rated 6 or Greater Albuterol/Ipratropium 3 ml 03/12/24 20:15 03/15/24 12:25 Ipratropium 0.5 Mg/Albuterol Sulfate 2.5 Mg Ampul.Neb 3 Ml INHALATION 3 ml Q4H PRN Administration SHORTNESS OF BREATH Alprazolam 1 mg 03/13/24 21:00 03/17/24 21:36 Alprazolam (*Crx) 0.5 Mg Tablet PO 1 mg QHS HEIDE Administration Apixaban 5 mg 03/13/24 21:00 12/06/24 20:33 Apixaban 5 Mg Tablet PO 5 mg Q12HR HEIDE Administration Atorvastatin Calcium 10 mg 03/13/24 21:00 03/17/24 21:36 Atorvastatin 10 Mg Tablet PO 10 mg HS HEIDE Administration Bisacodyl 5 mg 03/12/24 20:10 03/17/24 09:01 Bisacodyl 5 Mg Tablet Ec PO 5 mg DAILY PRN Administration Constipation Bumetanide 2 mg 03/16/24 09:00 03/18/24 08:03 Bumetanide Inj 1 Mg/4 Ml Vial IV PUSH 2 mg BID HEIDE Administration Clopidogrel Bisulfate 75 mg 03/13/24 09:00 03/14/24 07:31 Clopidogrel Bisulfate 75 Mg Tablet PO Not Given DAILY HEIDE Colestipol HCl 2 gm 03/13/24 09:00 03/18/24 08:02 Colestipol Hcl 1 Gm Tablet PO 2 gm DAILY HEIDE Administration Diltiazem HCl 360 mg 03/13/24 09:00 03/18/24 08:02 Diltiazem Hcl Cd 180 Mg Cap.24hr PO 360 mg DAILY HEIDE Administration Ferrous Sulfate 325 mg 03/16/24 09:00 03/18/24 08:03 Ferrous Sulfate [address] PO 325 mg DAILY HEIDE Administration Piperacillin/Tazobactam/Dextrose 3.375 gm in 50 mls @ 100 mls/hr 03/13/24 08:00 03/18/24 08:31 Zosyn 3.375 Gm/Ns 50 Ml IVPB Infused Q6H HEIDE Infusion Ipratropium [place] 0.5 mg 03/12/24 20:00 03/18/24 08:53 Ipratropium Br 0.02% Inh Soln 0.5 Mg/2.5 Ml Vial INHALATION 0.5 mg Q6HRT HEIDE Administration Levalbuterol HCl 0.63 mg 03/12/24 20:00 03/18/24 08:52 Levalbuterol Neb 1.25 Mg/3 Ml INHALATION 0.63 mg Q6HRT HEIDE Administration Lorazepam 0.5 mg 03/15/24 10:41 03/16/24 12:01 Lorazepam Inj (*Crx) 2 Mg/Ml Vial IV PUSH 0.5 mg Q6H PRN Administration Anxiety Prednisone 40 mg 03/16/24 08:00 03/18/24 08:03 Prednisone 20 Mg Tablet PO 03/21/24 07:59 40 mg DAILY@0800 HEIDE Administration Sertraline HCl 200 mg 03/13/24 09:00 03/18/24 08:02 Sertraline Hcl 50 Mg Tablet PO 200 mg DAILY HEIDE Administration Sodium Chloride 1 spray 03/16/24 17:48 Saline 0.65% Te[place] Soln 44 Ml Btl NASAL Q6HR PRN Congestion Sodium Chloride 6 ml 03/18/24 05:00 03/18/24 05:35 Sodium Chlor 3% 15 Ml Neb (Respiratory Therapy) INHALATION 6 ml DAILY@0500 HEIDE Administration Radiology Results: ITS Impressions Chest CTA 03/12/24 17:42 IMPRESSION: 1. No pulmonary embolism. 2. Bilateral large pleural effusion with adjacent atelectasis. 3. Mediastinal and bilateral hilar lymphadenopathy. 4. Nodule is seen in the right middle lobe and upper lobe. 6 months follow-up CT is advised. 5. Interstitial thickening in the apical areas which may indicate edema versus pneumonitis. Renal Ultrasound 03/15/24 20:32 IMPRESSION: No definite abnormal. Small simple cyst in the right kidney lower pole. Chest X-Ray 03/17/24 20:40 IMPRESSION: 1. Airspace opacities in the lower lung zones with interval improvement, consistent with atelectasis versus pneumonia. 2. Mild pulmonary edema. 3. Cardiomegaly. Labs Labs: Laboratory Results - last 24 hr 03/18/24 04:35 WBC 7.9 RBC 3.24 L Hgb 9.0 L Hct 29.9 L MCV 92.3 MCH 27.8 MCHC 30.1 L RDW 15.9 H Plt Count 220 MPV 8.8 Immature Gran % (Auto) 0.8 H Neut % (Auto) 77.4 H Lymph % (Auto) 15.5 L [place] % (Auto) 6.2 Eos % (Auto) 0.0 Baso % (Auto) 0.1 L Lymph # (Auto) 1.23 [place] # (Auto) 0.5 Eos # (Auto) 0.0 Baso # (Auto) 0.0 Abs Immat Gran (auto) 0.06 H Absolute Neuts (auto) 6.1 Absolute Nucleated RBC 0.000 Nucleated RBC % 0.0 Sodium 140 Potassium 2.8 L* Chloride 100 Carbon Dioxide 33 H Anion Gap 7 BUN 17 Creatinine 1.00 Estim Creat Clear Calc 36 Estimated GFR 53 L Glucose 134 H Calcium 8.8 Total Bilirubin 0.7 AST 23 ALT 11 Alkaline Phosphatase 74 Total Protein 8.0 Albumin 4.1
--- NOTE | 2024-03-18 11:20 | PM.IMPN ---
Progress Note: A&P Assessment and Plan (1) Acute on chronic respiratory failure: Qualifiers: Respiratory failure complication: hypoxia Qualified Code(s): J96.21 - Acute and chronic respiratory failure with hypoxia Code(s): J96.20 - Acute and chronic respiratory failure, unspecified whether with hypoxia or hypercapnia Status: Acute Assessment and Plan: Patient here for SOB. She wears 4L O2 during the day and 6L with sleeping. She does not have KAREEM. She is very inactive at home due to DELGADO. WBC normal. DDimer 2.67. Troponin negative x1. BNP 940. COVID, influenza and RSV PCR negative. ABG 7.47/41/125 on 15L NRBM CXR showing mild pulmonary edema and small pleural effusion. CTA Chest negative for PE but with bilateral large pleural effusion with atelectasis. Mediastinal and bilateral hilar lymphadenopathy noted. RML and RUL pulmonary nodule noted. Apical areas with edema vs pneumonitis. 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 Treated with Vorconazole for 14 days. She was given Lasix 80mg IV and Duoneb in the ED Suspect CHF exacerbation and related to pleural effusions. Can not exclude PNA. She was started on Lasix IV but held for worsening renal function Echo as below but does show right to left shunt. Hypoxia initially better at 8L but worsening. Related to worsening shunt? Pleural effusions? CHF? Aspergullis recurrence and plugs? Pulm following and appreciate their input. Patient now able to expectorate plugs with current treatment. Able to resume diuretic therapy and CXR showing only mild pulm edema and decrease in basilar airspace disease. Wean O2 as tolerated. Continue bronchodilators and steroids. (2) CHF (congestive heart failure): Code(s): I50.9 - Heart failure, unspecified Status: Acute Assessment and Plan: Echo showing right to left shunt by positive agitated saline study, normal LV size and systolic fxn with EF 50-55%, dilated RV with preserved systolic function and moderate , moderate AI and mild MR. In Mar 2023, EF 60-65%, Grade II diastolic dysfunction, akinetic basal inferior wall and moderate , moderate MR and mild pulmonary HTN. Imaging as above. BNP 2940 Unclear how extensive the shunt is. UOP not accurate. Continue IV Bumex. Monitor UOP, renal fxn and resp status. (3) Chronic kidney disease, stage 3: Code(s): N18.30 - Chronic kidney disease, stage 3 unspecified Status: Chronic Assessment and Plan: BUN and Cr normal but CrCl low in the 30's chronically. BUN 12 but Cr up to 1.2 Probably related to diuresis but she did receive contrast 03/12. Consider also related to hypoxia. Renal US showing no significant abnormalities. Urine studies are prerenal. Cr at 1 today and stable. Continue to monitor closely on diuretics. Follow (4) Pleural effusion: Code(s): J90 - Pleural effusion, not elsewhere classified Status: Acute Assessment and Plan: Imaging as above. She has bilateral thoracentesis ordered but on hold waiting for Plavix to wash out. Probably related to CHF but consider malignancy given the lung nodules noted or fungal. Plan for thoracentesis tomorrow Eliquis stopped and started on Lovenox (use daily since her CrCl close to cut off and Q12H would put her at a higher risk of bleeding). Lovenox today and then stopped. Resume Eliquis tomorrow night after thoracentesis. CXR (03/17) actually showing no pleural effusions now. Will order right thoracentesis and reorder appropriate pleural fluid studies (5) Atrial fibrillation: Code(s): I48.91 - Unspecified atrial fibrillation Status: Chronic Assessment and Plan: Heart rate midly elevated 90-110 range. TSH normal She has been resumed on her Eliquis (but now on Lovenox) She remains on Diltiazem. Monitor on tele. (6) Pneumonia: Qualifiers: Laterality: bilateral Lung location: unspecified part of lung Pneumonia type: due to unspecified organism Qualified Code(s): J18.9 - Pneumonia, unspecified organism Code(s): J18.9 - Pneumonia, unspecified organism Status: Acute Assessment and Plan: Imaging as above. WBC normal. BCx NGTD. MRSA nasal swab negative. Started on Zosyn and Doxy. Doxy x 5 days. (7) Pulmonary nodules: Code(s): R91.8 - Other nonspecific abnormal finding of lung field Status: Acute Assessment and Plan: CT showing RML 7mm nodule that is larger than prior imaging and a right apical nodule at 1cm. Also with mediastinal and bilateral hilar adenopathy. As above. Will need to be followed as outpatient. Plan Anemia - Chronic for the past year with Hgb 9-10 range mostly. Hgb stable and within her baseline. Iron studies showing normal iron and TIBC but low iron sat at 8%. Ferritin 45. B12 319 and MMA ordered. Folate normal. Add iron supplements DVT prophylaxis - Lovenox Code Status - DNR Subjective Date/time seen: 03/18/24 11:20 Interval history: 78yo female with chronic respiratory failure, CKD 3, HTN and pAFib here for shortness of breath. Cough productive of brown-red sputum. No CP or SOB. No n/v. No DELGADO when up to bedside commode Exam Narrative: AF 97.7 113/68 112 20 94% HFNC Gen - NARD Chest - decreased BS in the bases with scattered expiratory rhonchi CV - irregularly irregular. Tele showing AFib with stable rate Abd - Soft, NT/ND, Positive BS Ext - No pedal edema Psych - Nml mood and affect Skin - Warm and dry Objective Data Vital Signs Vital Signs: Vital Signs - 24 hr 03/17/24 12:00 03/17/24 12:00 03/17/24 14:07 Temperature Pulse Rate 116 H Respiratory Rate Blood Pressure Pulse Oximetry 93 91 Oxygen Delivery High Flow Therapy with Na High Flow Therapy with Na Oxygen Flow Rate 60 60 Fraction of Inspired Oxygen 90 90 03/17/24 14:07 03/17/24 14:33 03/17/24 16:31 Temperature 97.3 F L Pulse Rate 102 H 101 H 101 H Respiratory Rate 20 20 16 Blood Pressure 130/68 Pulse Oximetry 94 Oxygen Delivery Oxygen Flow Rate Fraction of Inspired Oxygen 03/17/24 14:00 03/17/24 16:00 03/17/24 16:00 Temperature Pulse Rate 108 H 104 H Respiratory Rate Blood Pressure Pulse Oximetry 94 Oxygen Delivery High Flow Therapy with Na Oxygen Flow Rate 60 Fraction of Inspired Oxygen 90 03/17/24 18:50 03/17/24 18:00 03/17/24 20:51 Temperature 97.3 F L Pulse Rate 118 H 116 H 62 Respiratory Rate 22 H 20 Blood Pressure 134/64 Pulse Oximetry 90 Oxygen Delivery Oxygen Flow Rate Fraction of Inspired Oxygen 03/17/24 21:23 03/17/24 19:50 03/18/24 00:00 Temperature 98.3 F Pulse Rate 118 H 101 H Respiratory Rate 22 H 19 Blood Pressure 126/82 Pulse Oximetry 95 90 96 Oxygen Delivery High Flow Therapy with Na High Flow Therapy with Na Oxygen Flow Rate 60 60 Fraction of Inspired Oxygen 90 91 03/18/24 00:20 03/18/24 03:21 03/18/24 03:29 Temperature Pulse Rate 101 H 88 Respiratory Rate 19 20 Blood Pressure Pulse Oximetry 96 96 Oxygen Delivery High Flow Therapy with Na High Flow Therapy with Na Oxygen Flow Rate 60 60 Fraction of Inspired Oxygen 91 90 03/17/24 20:00 03/17/24 22:00 03/18/24 00:00 Temperature Pulse Rate 114 H 107 H 99 Respiratory Rate Blood Pressure Pulse Oximetry Oxygen Delivery Oxygen Flow Rate Fraction of Inspired Oxygen 03/18/24 02:00 03/18/24 03:35 03/18/24 04:24 Temperature Pulse Rate 94 89 93 Respiratory Rate 20 24 H Blood Pressure Pulse Oximetry 96 Oxygen Delivery High Flow Therapy with Na Oxygen Flow Rate 60 Fraction of Inspired Oxygen 91 03/18/24 04:24 03/18/24 05:35 03/18/24 05:48 Temperature 97.6 F Pulse Rate 93 85 87 Respiratory Rate 24 H 20 20 Blood Pressure 137/40 L Pulse Oximetry 96 Oxygen Delivery Oxygen Flow Rate Fraction of Inspired Oxygen 03/18/24 04:00 03/18/24 06:00 03/18/24 08:00 Temperature 97.7 F Pulse Rate 88 94 100 Respiratory Rate 20 Blood Pressure 113/68 Pulse Oximetry 94 Oxygen Delivery Oxygen Flow Rate Fraction of Inspired Oxygen 03/18/24 08:57 03/18/24 08:57 03/18/24 09:08 Temperature Pulse Rate 89 84 Respiratory Rate 20 20 Blood Pressure Pulse Oximetry 94 Oxygen Delivery High Flow Therapy with Na Oxygen Flow Rate 60 Fraction of Inspired Oxygen 91 03/18/24 08:00 03/18/24 08:00 03/18/24 10:00 Temperature Pulse Rate 102 H 112 H Respiratory Rate Blood Pressure Pulse Oximetry 94 Oxygen Delivery High Flow Therapy with Na Oxygen Flow Rate 60 Fraction of Inspired Oxygen 91 Intake/Output Intake/Output: Intake & Output 03/15/24 03/16/24 03/17/24 03/18/24 23:59 23:59 23:59 23:59 Intake Total 1190 1800 1070 470 Output Total 1000 1500 1200 500 Balance 190 300 -130 -30 Meds/Results Medications: Active Medications Generic Name Dose Route Start Last Admin Trade Name Audrey PRN Reason Stop Dose Admin Acetaminophen 650 mg 03/16/24 17:50 03/18/24 08:03 Acetaminophen 325 Mg Tablet PO 650 mg Q4H PRN Administration Mild Pain (1-5) Or Fever Hydrocodone Bitart/Acetaminophen 1 tab 03/16/24 17:49 Hydrocodone/Acetaminophen (*Crx) 5-325 Mg Tablet PO Q6H PRN Pain Rated 6 or Greater Albuterol/Ipratropium 3 ml 03/12/24 20:15 03/15/24 12:25 Ipratropium 0.5 Mg/Albuterol Sulfate 2.5 Mg Ampul.Neb 3 Ml INHALATION 3 ml Q4H PRN Administration SHORTNESS OF BREATH Alprazolam 1 mg 03/13/24 21:00 03/17/24 21:36 Alprazolam (*Crx) 0.5 Mg Tablet PO 1 mg QHS HEIDE Administration Apixaban 5 mg 03/13/24 21:00 03/16/24 20:33 Apixaban 5 Mg Tablet PO 5 mg Q12HR HEIDE Administration Atorvastatin Calcium 10 mg 03/13/24 21:00 03/17/24 21:36 Atorvastatin 10 Mg Tablet PO 10 mg HS HEIDE Administration Bisacodyl 5 mg 03/12/24 20:10 03/17/24 09:01 Bisacodyl 5 Mg Tablet Ec PO 5 mg DAILY PRN Administration Constipation Bumetanide 2 mg 03/16/24 09:00 03/18/24 08:03 Bumetanide Inj 1 Mg/4 Ml Vial IV PUSH 2 mg BID HEIDE Administration Clopidogrel Bisulfate 75 mg 03/13/24 09:00 03/14/24 07:31 Clopidogrel Bisulfate 75 Mg Tablet PO Not Given DAILY HEIDE Colestipol HCl 2 gm 03/13/24 09:00 03/18/24 08:02 Colestipol Hcl 1 Gm Tablet PO 2 gm DAILY HEIDE Administration Diltiazem HCl 360 mg 03/13/24 09:00 03/18/24 08:02 Diltiazem Hcl Cd 180 Mg Cap.24hr PO 360 mg DAILY HEIDE Administration Ferrous Sulfate 325 mg 03/16/24 09:00 03/18/24 08:03 Ferrous Sulfate [address] PO 325 mg DAILY HEIDE Administration Piperacillin/Tazobactam/Dextrose 3.375 gm in 50 mls @ 100 mls/hr 03/13/24 08:00 03/18/24 08:31 Zosyn 3.375 Gm/Ns 50 Ml IVPB Infused Q6H HEIDE Infusion Ipratropium [place] 0.5 mg 03/12/24 20:00 03/18/24 08:53 Ipratropium Br 0.02% Inh Soln 0.5 Mg/2.5 Ml Vial INHALATION 0.5 mg Q6HRT HEIDE Administration Levalbuterol HCl 0.63 mg 03/12/24 20:00 03/18/24 08:52 Levalbuterol Neb 1.25 Mg/3 Ml INHALATION 0.63 mg Q6HRT HEIDE Administration Lorazepam 0.5 mg 03/15/24 10:41 03/16/24 12:01 Lorazepam Inj (*Crx) 2 Mg/Ml Vial IV PUSH 0.5 mg Q6H PRN Administration Anxiety Prednisone 40 mg 03/16/24 08:00 03/18/24 08:03 Prednisone 20 Mg Tablet PO 03/21/24 07:59 40 mg DAILY@0800 HEIDE Administration Sertraline HCl 200 mg 03/13/24 09:00 03/18/24 08:02 Sertraline Hcl 50 Mg Tablet PO 200 mg DAILY HEIDE Administration Sodium Chloride 1 spray 03/16/24 17:48 Saline 0.65% [place] Soln 44 Ml Btl NASAL Q6HR PRN Congestion Sodium Chloride 6 ml 03/18/24 05:00 03/18/24 05:35 Sodium Chlor 3% 15 Ml Neb (Respiratory Therapy) INHALATION 6 ml DAILY@0500 HEIDE Administration Radiology Results: ITS Impressions Chest CTA 03/12/24 17:42 IMPRESSION: 1. No pulmonary embolism. 2. Bilateral large pleural effusion with adjacent atelectasis. 3. Mediastinal and bilateral hilar lymphadenopathy. 4. Nodule is seen in the right middle lobe and upper lobe. 6 months follow-up CT is advised. 5. Interstitial thickening in the apical areas which may indicate edema versus pneumonitis. Renal Ultrasound 03/15/24 20:32 IMPRESSION: No definite abnormal. Small simple cyst in the right kidney lower pole. Chest X-Ray 03/17/24 20:40 IMPRESSION: 1. Airspace opacities in the lower lung zones with interval improvement, consistent with atelectasis versus pneumonia. 2. Mild pulmonary edema. 3. Cardiomegaly. Labs Labs: Laboratory Results - last 24 hr 03/18/24 04:35 WBC 7.9 RBC 3.24 L Hgb 9.0 L Hct 29.9 L MCV 92.3 MCH 27.8 MCHC 30.1 L RDW 15.9 H Plt Count 220 MPV 8.8 Immature Gran % (Auto) 0.8 H Neut % (Auto) 77.4 H Lymph % (Auto) 15.5 L [place] % (Auto) 6.2 Eos % (Auto) 0.0 Baso % (Auto) 0.1 L Lymph # (Auto) 1.23 [place] # (Auto) 0.5 Eos # (Auto) 0.0 Baso # (Auto) 0.0 Abs Immat Gran (auto) 0.06 H Absolute Neuts (auto) 6.1 Absolute Nucleated RBC 0.000 Nucleated RBC % 0.0 Sodium 140 Potassium 2.8 L* Chloride 100 Carbon Dioxide 33 H Anion Gap 7 BUN 17 Creatinine 1.00 Estim Creat Clear Calc 36 Estimated GFR 53 L Glucose 134 H Calcium 8.8 Total Bilirubin 0.7 AST 23 ALT 11 Alkaline Phosphatase 74 Total Protein 8.0 Albumin 4.1
[2024-03-18 13:26] LABS: Potassium 3.8 mmol/L (3.4-5.0)
[2024-03-18 13:30] LABS: Magnesium 2.1 mg/dL (1.6-2.3)
[2024-03-18] MEDS: ALPRAZolam (*CRX) 0.5 MG TABLET 1 MG PO (20:24)
[2024-03-18] MEDS: ATORVASTATIN 10 MG TABLET PO (20:24)
[2024-03-19] VITALS (30 sets, daily range): BP systolic 116–140; BP diastolic 54–89; PULSE 80–114; RESP 18–24; TEMP 36.6–37; O2SAT 90–100
[2024-03-19] MEDS: PIPERACILLN/TAZ 3.375GM/NS50ML 3.375 GM/50 ML BAG IVPB ×4 (01:18→21:04)
[2024-03-19] MEDS: LEVALBUTEROL NEB 1.25 MG/3 ML 0.63 MG INHALATION ×4 (01:37→20:03)
[2024-03-19] MEDS: IPRATROPIUM BR 0.02% INH SOLN 0.5 MG/2.5 ML VIAL INHALATION ×4 (01:37→20:03)
[2024-03-19 04:45] LABS: Hematocrit 30.5 % (37.0-47.0); Hemoglobin 9.4 g/dL (12.0-15.0); Immature Granulocyte Absolute 0.06 K/mm3 (0.00-0.031); Immature Granulocyte Percent A 0.7 % (0-0.5); Lymphocytes Percent Auto 17.3 % (18.3-44.2); Mean Corpuscular HGB Conc 30.8 g/dl (32-36); Mean Corpuscular Hemoglobin 28.4 pg (26-34); Mean Corpuscular Volume 92.1 fl (80-100); Mean Platelet Volume 8.9 fl (7.4-10.4); Monocytes Absolute Auto 0.6 K/mm3 (0.1-0.6); Monocytes Percent Auto 7.5 % (2.6-8.5); Neutrophils Percent Auto 74.5 % (45.5-73.1); Platelet Count Result 211 k/mm3 (150-375); Red Blood Count 3.31 M/mm3 (4.2-5.4); Red Cell Distribution Width 15.8 % (11.5-14.5); White Blood Count 8.1 K/mm3 (4.5-10.0)
[2024-03-19] MEDS: SODIUM CHLOR 3% 15 ML NEB (RESPIRATORY THERAPY) 6 ML INHALATION (04:54)
[2024-03-19 05:01] LABS: Alanine Aminotransferase 11 U/L (6-35); Albumin Level 4.1 g/dL (3.5-5.1); Alkaline Phosphatase 72 U/L (38-126); Anion Gap 7 mmol/L (4-12); Aspartate Amino Transferase 23 U/L (14-36); Bilirubin,Total 0.7 mg/dL (0.2-1.3); Blood Urea Nitrogen 17 mg/dL (7-17); Calcium 8.6 mg/dL (8.4-10.2); Carbon Dioxide 29 mmol/L (22-30); Chloride 102 mmol/L (98-107); Estimated CRCL calculation 39 ml/min; Estimated Glomerular Filt Rate 60; Glucose 123 mg/dL (65-110); Potassium 3.3 mmol/L (3.4-5.0); Sodium 138 mmol/L (137-145)
[2024-03-19 09:23] LABS: NT Pro B Type Natriuretic Pept 1990 pg/mL (19.9-100)
[2024-03-19] MEDS: FERROUS SULFATE 325 MG TABLET DR PO (09:24)
[2024-03-19] MEDS: predniSONE 20 MG TABLET 40 MG PO (09:24)
[2024-03-19] MEDS: BUMETANIDE INJ 1 MG/4 ML VIAL 2 MG IV PUSH ×2 (09:24→17:36)
[2024-03-19] MEDS: dilTIAZem HCL CD 180 MG CAP.24HR 360 MG PO (09:24)
[2024-03-19] MEDS: COLESTIPOL HCL 1 GM TABLET 2 GM PO (09:24)
[2024-03-19] MEDS: SERTRALINE HCL 50 MG TABLET 200 MG PO (09:24)
[2024-03-19] MEDS: POTASSIUM CHLORIDE 20 MEQ ER TABLET 40 MEQ PO (09:35)
--- NOTE | 2024-03-19 10:40 | PCOTNOTE ---
Per RN, Patient going down for a thoracentesis, check back later.
--- NOTE | 2024-03-19 10:49 | P.PNPL_ITS ---
Progress Note: A&P Assessment and Plan (1) Acute on chronic respiratory failure: Qualifiers: Respiratory failure complication: hypoxia Qualified Code(s): J96.21 - Acute and chronic respiratory failure with hypoxia Code(s): J96.20 - Acute and chronic respiratory failure, unspecified whether with hypoxia or hypercapnia Status: Acute Assessment and Plan: Patient with chronic hypoxemic respiratory failure on 4 L at rest, 4-5 with activity and 6 L with sleep. currently admitted with worsening acute on chronic hypoxic respiratory failure requiring BiPAP. ABG on admission 7.47/41/125 on a non-rebreather. Etiology of worsening hypoxemic respiratory failure includes fluid overload, pneumonia, COPD exacerbation, bilateral pleural effusions, positive bubble study with pvuoh-nu-nhcy shunt after 4-5 beats without Valsalva and after 2 beats with Valsalva with bubbles appearing to come from the pulmonary vein rather than through the atrial septum. 03/19/24: overall since admission the patient feels the same or a little bit better. she still has shortness of breath, hot feelings, sweats. She is afebrile. White blood cell count is 8.1, creatinine is 0.9. BNP is 1990 ( decreased from 2940 and 2740 on admission). When I enter the room the patient was on Airvo 60 L 91% FiO2 with saturations 95% on her right ear probe and 100% on her right hand finger probe. I changed her to 15 L nasal cannula and her right hand saturation was 95%. I decreased her to 10 L and her right hand saturation was 92-93% with a right ear probe measuring 88% and a left hand saturation measuring 91-92%. Plan: Goal saturation 90-94%. Wean oxygen accordingly. Will continue treatment for fluid overload with Bumex 2 mg IV b.i.d., Pneumonia with Zosyn day 7 and doxycycline day 5 (MRSA negative, COVID, RSV and Influenza negative, sputum for AFB and fungus pending. Respiratory pathogen panel pending). Regarding pleural effusions; chest x-ray demonstrates improved bilateral pleural effusions, the patient is scheduled for a right thoracentesis later today and will send full set of chemistries, microbiology and cytology studies. Will continue treatment for possible COPD exacerbation with prednisone 40 mg p.o. q.day. No wheezes,day 5 today and will discontinue. Continue levalbuterol and ipratropium nebulizers q.6 hours. Will continue Vest treatment, coronary flutter valve and will add guaifenesin 1200 mg p.o. b.i.d. to help with sputum expectoration. Discussed with daughter in the room, Dr. Knight. Will follow with you. (2) Acute exacerbation of chronic obstructive pulmonary disease (COPD): Code(s): J44.1 - Chronic obstructive pulmonary disease with (acute) exacerbation Status: Acute Assessment and Plan: Gold grade 2 group E COPD Patient with 82.5 pack year tobacco use, quit 10/06/2022.? Alpha 1 anti trypsin genotype MM.? 07/17/2021: FEV1 is 1.25 L, 62% predicted, FEV1: FVC ratio 59%, no hyperinflation, DLCO moderately decreased at 40% and remains moderately decreased when adjusted for alveolar volume.? CT scan of the chest on 07/20/2022 shows stable pulmonary nodules with moderate apical predominant centrilobular emphysema.? She has used oxygen with exertion for about 2 years and 01/2023 admission she has been on oxygen around the clock.? Currently using 4 L nasal cannula At rest, 4-5 L with activity and 6 L at night. 01/26/23 - echo: EF 65- 70%, mildly increased LV wall thickness, LV diastolic function indeterminate, mild aortic valve stenosis area 1.7, mild-mod aortic and tricuspid valve regurgitation, mild pulm HTN with RVSP 44mmHg. echo 03/22/2023 with moderate aortic stenosis with a valve area of 1.5. Echocardiogram 03/15/2024 with moderate aortic stenosis with a valve area of 1.1, moderate aortic regurgitation. RVSP 50, positive right to left bubble. Recent activity: 01/24/23 to 01/30/23, inpatient [facility]; COPD exacerbation; home for a few days, 02/05/23 to 02/14/23; entered rehab due to debilitation 02/17/23 to 02/19/23; fell and broke hip; inpatient; Ortho consult= non-surgical injury, went to rehab Feb 21, 2023 through 03/07/23 03/17/2023 through 04/12/2023:? Admitted to [facility] with COVID pneumonia and hypoxic respiratory failure requiring continuous BiPAP, high-flow nasal cannula oxygen.? Treated with remdesivir, dexamethasone and baricitinib with slow improvement. ?Mucus plugging with left upper lobe collapse and right middle lobe collapse treated with bronchodilators, dornase, Mucomyst, chest PT. Aspergillus in sputum without focal consolidations or cavities and treated with voriconazole for 14 days for colonization.? Developed acute pulmonary edema in house with re-initiation of noninvasive ventilation responded to diuretics.? Right thoracentesis with 400 mL of an exudative, neutrophilic, noninfected cytology negative effusion.? Weaned to 2 L and discharged to inpatient rehab on 04/12/2023 and discharged back to longterm on 04/25/2023. 03/19/24: overall since admission the patient feels the same or a little bit better. she still has shortness of breath, hot feelings, sweats. She has no wheezing. Plan: Today is day 5 of prednisone and will discontinue. Continue levalbuterol and ipratropium nebulizers q.6 hours. Continue Vest therapy and Cornet flutter valve to aid expectoration. Will add guaifenesin 1200 mg p.o. b.i.d. today. (3) Pulmonary nodules: Code(s): R91.8 - Other nonspecific abnormal finding of lung field Status: Acute Assessment and Plan: CT chest 03/12/2024 compared to 03/30/2023 with 7 mm RML nodule, needs [address] chest as this has grown; the 1 cm nodule in the right apex is stable. Plan: Repeat CT scan on 09/10/2024. (4) Aortic valve stenosis: Qualifiers: Cardiac valve disease etiology: nonrheumatic Qualified Code(s): I35.0 - Nonrheumatic aortic (valve) stenosis Code(s): I35.0 - Nonrheumatic aortic (valve) stenosis Status: Acute Assessment and Plan: Echocardiogram 01/26/2022 with aortic valve area 1.7 cm, PASP 44. Echocardiogram 03/22/2023 with moderate aortic stenosis valve area 1.5 cm and mild TR with PASP 43. Echocardiogram 03/15/2024 reviewed with supervisor meter shop and valve area is 1.1 with moderate aortic stenosis and moderate aortic reg urgitation. Mildly enlarged right ventricle with normal function. Right atrium is normal. Positive right to left bubble study at 4-5 beats with no Valsalva and with 2 beats with Valsalva with bubbles appearing from the pulmonary vein rather than the septum. plan: For aortic stenosis this could be contributing to patient's clinical issues and will repeat an echocardiogram in 6 months. (5) Right to left cardiovascular shunt: Status: Acute Assessment and Plan: Echocardiogram 03/15/2024 reviewed with supervisor meter shop and aortic valve area is 1.1 with moderate aortic stenosis and moderate aortic regurgitation. Mildly enlarged right ventricle with normal function. Right atrium is normal. Positive right to left bubble study at 4-5 beats with no Valsalva and with 2 beats with Valsalva with bubbles appearing from the pulmonary vein rather than through the septum. Plan: Regarding the right to left shunt which is appears to be predominantly an intrapulmonary shunt, if she does not improve with treatment for fluid overload, pneumonia, COPD will consider further assessment to determine if there is a cardiac shunt such as a PFO with ROSEMARY and or right ventricular catheterization. Echocardiographically it does not appear she has a chronic PFO as she is 78 years old making a congenital abnormality unlikely and her pulmonary hypertension has been relatively stable over the last year with normal right ventricular function. Of note, the patient is already on chronic anticoagulated for atrial fibrillation. Subjective Date/time seen: 03/19/24 10:49 Interval history: new; 03/15/24; Maria Dolores Henry is 78 years old, followed by our practice, has COPD, chronic respiratory failure, uses O2 at home. She is using 4-5 L/min at rest, 6 L/min with exertion and sleep. She saw Dr Donato in the office Mar 05, and was stable according to his note. Her COPD regimen included Stiolto Respimat 2.5-2.51 puff daily and albuterol rescue inhaler 3-4 times per day, guaifenesin 600 mg every other day and Lasix 40 mg b.i.d.. She has not smoked since September of 2023. She has no secondhand tobacco exposure. She is up-to-date on all vaccinations.She was admitted to [place] in Mar 2023 with pneumonia, pleural effusions, COVID; sputum grew out Aspergillus without focal lung consolidations or cavitations and she was treated with voriconazole for 14 days for presumed colonization Mar 2023. . She was admitted on TuesdayMar 12. She says that she has not been feeling well for a few weeks. She is up-to-date on her vaccinations influenza, RSV, COVID. on admission, the PCR for these (-). At first, her sputum was brown but now she has a barking cough, says she feels like she has a croupy cough. ABG = no CO2 retention, pH 7.47, pCO2 41, PO2 125 on 15 L non-rebreather mask.. CXR = no infiltrate, mainly effusion, CTA on March 14 shows large effusion on the right smaller effusion on the left and a 7 mm nodule in the right anterior lung. Treated with Zosyn and doxycycline, now po doxycycline. She has a higher O2 requirement today, up to 15 L /min. She has no fever, no sputum now. Her echo 03/13 shows a right to left shunt. not sure how significant this is, but shunts cause hypoxemia. WBC = 7.1 Mar 12, now 7.4k; D-Dimer 2.67. Negative troponin. BNP 2940. Mar 15 CXR = more pulmonary edema, right pleural effusion, no infiltrate. WBC is stable, 7.4k. She was given Lasix 80mg IV and Duoneb in the ED Suspect CHF exacerbation and related to pleural effusions. Can not exclude PNA. 03/17: The patient is on much higher amounts of O2. Used CPAP overnight, today used non-rebreather,, now on high flow nasal cannula. Saturation is 90-91% using 60 L/min and FiO2 90%. this is the highest amount of O2 she has been on this admission. A year ago, she had COVID, low O2 saturation, also had a thoracentesis, grew Aspergillus on sputum, was treated with voriconazole x 14 days. 03/18: Still on Air Vo 60L & 90%, improved saturation, 95%. sometimes, her saturaiotn drops into the 70s. Resp rate 20-24, no fever. CXR last night showed some improvement. She had Dornase adrian mucolytic, was fitted for the vibratory vest, and is using Cornet bonnie. She has expectorated sputum in a container by the bed, reddish liquid with dark plugs, consistent with Aspergillus. She notes that she feels very similar to how she felt last March, when she had Aspergillus in her sputum. Procalcitonin Dec 6 was 0.6, normal. This is not consistent with bacterial infection. K+ 2.8 today, replaced. 03/19/24: overall Since admission the patient feels the same or a little bit better. she still has shortness of breath, hot feelings, sweats. She is afebrile. White blood cell count is 8.1, creatinine is 0.9. BNP is 1990 ( decreased from 2940 and 2740 on admission). When I enter the room the patient was on Airvo 60 L 91% FiO2 with saturations 95% on her right ear probe and 100% on her right hand finger probe. I changed her to 15 L nasal cannula and her right hand saturation was 95%. I decreased her to 10 L and her right hand saturation was 92-93% with a right ear probe measuring 88% and a left hand saturation measuring 91-92%. DATA: * 03/17/24; CXR; Airspace opacities in the lower lung zones with interval improvement, consistent with atelectasis versus pneumonia. 2. Mild pulmonary edema. 3. Cardiomegaly. * 03/12/2024 CXR; There is a diffuse interstitial pattern in the lungs, consistent with pulmonary edema. There is mild atelectasis at the lung bases. There are small pleural effusions. No pneumothorax. Cardiomegaly is noted. IMPRESSION: 1. Mild pulmonary edema. 2. Small pleural effusions. 3. Cardiomegaly. * 03/13/24 chest CTA - Nodule is seen in the right middle lobe measuring 7 mm. 6 months follow-up advised. This nodule is larger than the previous study. Interstitial thickening is seen in the apical area which may indicate pneumonitis versus edema. Minimal atelectatic changes seen in the middle lobe. Nodule is seen in the right apical area measuring 1 cm. No pulmonary masses. No pneumothorax. Bilateral large pleural effusion with adjacent atelectasis seen. . VISUALIZED UPPER ABDOMEN: Status post cholecystectomy. small left kidney cyst. Possible left kidney lower pole a stone. Otherwise, the visualized upper abdomen is normal. MUSCULOSKELETAL: Soft tissues: The superficial soft tissues are normal. Bones: Age appropriate degenerative changes of the spine. Old compression fracture is seen in T7. IMPRESSION: 1. No pulmonary embolism. 2. Bilateral large pleural effusion with adjacent atelectasis. 3. Mediastinal and bilateral hilar lymphadenopathy. 4. Nodule is seen in the right middle lobe and upper lobe. 6 months follow-up CT is advised. 5. Interstitial thickening in the apical areas which may indicate edema versus pneumonitis. * 03/13/24 = EchoThere is [id number] shunt evidenced by the positive agitated saline study. 2. The left ventricle is normal in size and systolic function. The left ventricular ejection fraction is visually estimated to be 50-55%. 3. The right ventricle is mildly dilated with preserved systolic function. 4. The aortic valve is trileaflet and heavily calcified. There is moderate aortic stenosis with a valve area of 1.1 cm2. There is moderate aortic regurgitation. 11/04/2023: Polysomnogram Periodic Limb Movements The patient had 87 isolated limb movements with an index of 14.1. The patient had 215 periodic limb movements with an index of 34.9, which is elevated (normal <15). Patient had a total of 302 limb movements with a total limb movement index of 49.0. Assessment and plan: (1) Nocturnal hypoxemia: The patient had an overall AHI of 2.1 with desaturation down to 77%. This is not consistent with sleep-disordered breathing. The patient had persistent hypoxemia in the absence of respiratory events. Supplemental oxygen was started at 1 lpm of O2 and titrated to 3.5 lpm of O2. The patient oxygen saturation was unable to remain above 90% on the final oxygen settings. I recommend that the patient use 4 lpm of supplemental oxygen with sleep. I recommend that she have a nocturnal oximetry done 2 weeks after implementing the recommended oxygen settings to ensure that her oxygen saturation remains above 90%. (2) PLMD (periodic limb movement disorder): The patient had a significant number of limb movements during the study with the majority being periodic in nature. Approximately 25% of the periodic limb movements caused arousals during sleep. The patient's sleep history does not suggest Restless Leg Syndrome. I recommend that the patient have a serum ferritin drawn for evaluation of iron deficiency anemia. If the patient has a serum ferritin less than 75 ng/mL, I recommend starting a daily iron supplement and a Vitamin C supplement for better absorption. If the serum ferritin is greater than 75 ng/mL, I recommend starting a dopamine agonist and titrating the dose until symptoms resolve. There are nonpharmacological methods to treat limb movements including daily exercise, stretching calf muscles before bed, avoiding excessive amounts of caffeine and alcohol, vitamin B supplementation, magnesium lotion massaged into legs before bed, and use of a weighted blanket. I will order ferritin blood test. 10/25/2023: Overnight oximetry on 6 L nasal cannula. The family was present for this test and confirmed the patient was on 6 L, and that she wore the 6 L all night. Recording duration 9 hours and 57 minutes. Basal saturation 94.6%. High saturation 99%. Low saturation 82%. Time with saturation less than or equal to 88% was 2 minutes and 26 seconds. Oxygen desaturation index was 7. I will continue 6 L nasal cannula at night. 07/06/2023 (results received from [facility] on 08/25/23):? Overnight oximetry on 5 L nasal cannula.? Recording duration 9 hours and 35 minutes.? Basal saturation 86.6%.? High saturation 98%.? Low saturation 65%.? Time with saturation less than or equal to 88% was 4 hours and 28 minutes.? Oxygen desaturation index is 20. unsure if patient was wearing oxygen and at what level, repeat ordered on 5 L 05/13/2023: Home O2 assessment:? Rest room air saturation 86%.? Rest nasal cannula 1 L saturation 88%.? Rest nasal cannula 2 L saturation 90%.? Exercise nasal cannula 2 L saturation 88%.? Exercise nasal cannula 3 L saturation 90%. ?Requires 2 L with rest and 3 with activity 03/12/30 EXAMINATION: XR chest 1V portable ??INDICATION: Pleural effusions. ??COMPARISON: Chest single view 04/08/2023, chest CT 03/30/2023 ??FINDINGS: There is a diffuse interstitial pattern in the lungs. There are airspace opacities in right mid and lower lung zones and left lower lung zone. There are small pleural effusions. No pneumothorax. Cardiomegaly is noted. ??IMPRESSION: ??1. Stable diffuse lung disease, consistent with pulmonary edema versus pneumonia. ??2. Stable small pleural effusions. ??3. Cardiomegaly. ?03/23/23: EXAMINATION: CTA chest PE protocol ??DATE: 03/23/2023 14:04 ??INDICATION: SOB ??COMPARISON: 07/20/2022 ??FINDINGS: The pulmonary arteries are well-opacified. No pulmonary embolism is identified. There are moderate-sized right and small left pleural effusions. There is complete left upper lobe collapse due to mucous plugging. There is also complete atelectasis of the right middle lobe. There is intralobular septal thickening with groundglass opacity with a right lung predominance. There is dependent atelectasis of the left lower lobe. There is a right breast implant. There is mild bilateral hilar and mediastinal lymphadenopathy, likely reactive. No pneumothorax is identified. Punctate calcifications in an otherwise normal spleen likely represent healed granulomatous disease. Changes of cholecystectomy are noted. There is moderate thoracic spondylosis. A chronic T8 compression fracture is noted. ??IMPRESSION: ??1. No pulmonary embolus. ??2. Left upper lobe collapse related to mucous plugging ??3. Complete atelectasis of the right middle lobe. ??4. Moderate size right and small left pleural effusions. ??5. Findings consistent with asymmetric edema of the right upper lobe. ?03/30/[address] Mild pulmonary edema. ??2. Mild atelectasis in the lungs with interval improvement. ??3. Moderate emphysema. ??4. Small pleural effusions. ?03/22/23 Echo Summary ??? 1. Complete two-dimensional, color flow and Doppler transthoracic ??echocardiogram is performed. ??? 2. Severe pulmonary artery enlargement. ??? 3. Left ventricular chamber dimension is normal. ??? 4. Left ventricular systolic function is normal, estimated at 60-65%. ??? 5. There is mildly increased left ventricular wall thickness. ??? 6. The left ventricular diastolic function is grade II diastolic ??dysfunction. ??? 7. The basal inferior wall is akinetic. ??? 8. Left atrial chamber dimension is moderately enlarged. ??? 9. Right atrial chamber dimension is mildly enlarged. ??? 10. Right ventricular chamber dimension is mildly enlarged. ??? 11. There is moderate aortic valve stenosis with a peak velocity of 224 ??cm/s, mean gradient of 11 mmHg, and aortic valve area of 1.5 cm2. ??? 12. There is moderate aortic valve regurgitation. ??? 13. There is moderate aortic valve calcification. ?? 14. The mitral valve annulus is mildly calcified. ??? 15. There is moderate mitral valve regurgitation. ??? 16. There is mild tricuspid valve regurgitation. ??? 17. Mild pulmonary hypertension, estimated pulmonary arterial systolic ??pressure is 43 mmHg. ??? 18. There is mild pulmonic regurgitation. ??Right Ventricle ??? Right ventricular chamber dimension is mildly enlarged. ??? Right ventricular systolic function is normal. ??Right Atria ??? Right atrial chamber dimension is mildly enlarged. ?? * 03/17/23 CXR compared to 01/24 CXR with intervall progression of bilateral airspace disease which may represent edema and/or pneumonia. ??document embedded image ??* 01/26/23 - echo: EF 65-70%, mildly increased LV wall thickness, LV diastolic function indeterminate, mild aortic valve stenosis with valve area 1.7 cm2, , mild-mod aortic and tricuspid valve regurgitation, mild pulmHTN RVSP 44mmHg. ??* 07/20/[address] - Stable pulmonary nodules, likely benign. Moderate emphysema. ??* 12/16/21 Home O2 Eval - need for 2L O2 with activity, none at rest. ??* 01/26/22: Overnight oximetry - 324 min spent below 88% saturation. ? ?07/17/2021 PFTs ?The test was performed and results interpreted in accordance with the 2019 and 2005 ATS/ERS Task Force guidelines respectively using the Global Lung Function Initiative-2012 reference equations. Patient demonstrated good effort and cooperation. Reproducibility criteria were met. The quality of the spirometry maneuver was Grade A.? Of note the patient had persistent coughing throughout the test. ?Findings: ?Spirometry:? There is decreased maximal expiratory airflow at all lung volumes with a concave expiratory flow tracing.? The contour the inspiratory flow tracing is normal.? The FVC is 2.13 L, 81% predicted.? The FEV1 is 1.25 L, 62% predicted.? The FEV1:? FVC ratio is 59%. ?Plethysmography:? The total lung capacity is 5.70 L, 112% predicted.? The functional residual capacity is 4.32 L, 148% predicted.? The residual volume is 3.04 L, 130% predicted.? ?Diffusing capacity:? The diffusing capacity unadjusted for hemoglobin and car boxyhemoglobin is 8.0, 40% predicted.? The diffusing capacity adjusted for alveolar volume is 2.26, 54% predicted. ?Impression: There is a moderate obstructive abnormality. Hyperinflation is present is demonstrated by the increase in functional residual capacity and is consistent with an obstructive abnormality. The diffusing capacity unadjusted for hemoglobin is moderately decreased and normalizes when adjusted for alveolar volume. ?There are no prior studies for comparison ? ??* 05/25/22 : Overnight oximetry on 2.5L O2 - 13min spent below 88% but looks likely artifact. She continued 2.5L. ??* 07/26/20 - Chest CT:? mild to moderate emphysema. 6 mm right middle lobe nodule along a band of linear discoid atelectasis/scarring. ??* Alpha 1 MM normal.Alpha 1 PIMM normal Review of Systems Constitutional: Constitutional: Reports no additional constitutional comp laints Eyes: Eyes: Reports no additional eye complaints ENT: Reports system reviewed and no additional complaints, except as documented Cardiovascular: Cardiovascular: Reports no additional cardiovascular complaints Respiratory: Respiratory: Reports no additional respiratory complaints Gastrointestinal: Gastrointestinal: Reports no additional gastrointestinal complaints Musculoskeletal: Musculoskeletal: Reports no additional musculoskeletal complaints Neurologic: Reports system reviewed and no additional complaints, except as documented Psychiatric: Psychiatric: Reports no additional psychiatric complaints Endocrine: Endocrine: Reports no additional endocrine complaints Hematologic/Lymphatic: Hematologic/Lymphatic: Reports no additional hematologic/lymphatic complaints Allergic/Immunologic: Allergic/Immunologic: Reports no additional allergic /immunologic complaints Exam Const: General: cooperative and comfortable Orientation/consciousness: oriented to person, oriented to place and oriented to time HENMT: Head: normal to inspection Ears: hearing grossly normal bilaterally Eyes: General: appearance normal, both eyes and all related structures Neck: Neck: normal visual inspection Chest: Chest palpation & inspection: normal inspection of the chest Resp: Effort & Inspection: normal respiratory effort and able to speak in complete sentences Auscultation: crackles, no rales, no rhonchi, no wheezes and lung sounds not diminished Cardio: Jugular venous distension: no JVD GI: Inspection: normal to inspection GI Palp: No abdominal tenderness Skin: General skin exam: normal color Neuro: General: oriented to person, oriented to place and oriented to time Extrem: General: normal to inspection and no edema Psych: Appearance: grossly normal Objective Data Vital Signs Vital Signs: Vital Signs - 24 hr 03/18/24 12:00 03/18/24 12:00 03/18/24 12:00 Temperature 36.6 C Pulse Rate 97 102 H Respiratory Rate 16 Blood Pressure 132/67 Pulse Oximetry 90 95 Oxygen Delivery High Flow Therapy with Na Oxygen Flow Rate 60 Fraction of Inspired Oxygen 96 03/18/24 13:52 03/18/24 14:00 03/18/24 16:00 Temperature 36.6 C Pulse Rate 104 H 97 105 H Respiratory Rate 20 16 Blood Pressure 128/64 Pulse Oximetry 98 Oxygen Delivery Oxygen Flow Rate Fraction of Inspired Oxygen 03/18/24 16:00 03/18/24 16:00 03/18/24 19:56 Temperature 36.6 C Pulse Rate 97 109 H Respiratory Rate 16 Blood Pressure 136/61 Pulse Oximetry 96 97 Oxygen Delivery High Flow Therapy with Na Oxygen Flow Rate 60 Fraction of Inspired Oxygen 96 03/18/24 20:49 03/18/24 20:46 03/18/24 20:56 Temperature Pulse Rate 105 H 103 H Respiratory Rate 20 20 Blood Pressure Pulse Oximetry 92 Oxygen Delivery High Flow Therapy with Na Oxygen Flow Rate 60 Fraction of Inspired Oxygen 90 03/18/24 20:00 03/18/24 20:00 03/18/24 22:00 Temperature Pulse Rate 104 H 101 H Respiratory Rate Blood Pressure Pulse Oximetry 95 Oxygen Delivery High Flow Therapy with Na Oxygen Flow Rate 60 Fraction of Inspired Oxygen 89 03/18/24 23:45 03/19/24 00:00 03/19/24 00:00 Temperature 36.6 C Pulse Rate 97 94 Respiratory Rate 18 Blood Pressure 137/67 Pulse Oximetry 98 100 Oxygen Delivery High Flow Therapy with Na Oxygen Flow Rate 60 Fraction of Inspired Oxygen 91 03/19/24 01:38 03/19/24 02:00 03/19/24 03:53 Temperature 36.6 C Pulse Rate 95 89 98 Respiratory Rate 20 18 Blood Pressure 140/89 Pulse Oximetry 92 Oxygen Delivery Oxygen Flow Rate Fraction of Inspired Oxygen 03/19/24 01:50 03/19/24 04:55 03/19/24 05:10 Temperature Pulse Rate 97 90 83 Respiratory Rate 20 19 19 Blood Pressure Pulse Oximetry Oxygen Delivery Oxygen Flow Rate Fraction of Inspired Oxygen 03/19/24 04:00 03/19/24 04:00 03/19/24 06:00 Temperature Pulse Rate 91 80 Respiratory Rate Blood Pressure Pulse Oximetry 93 Oxygen Delivery High Flow Therapy with Na Oxygen Flow Rate 60 Fraction of Inspired Oxygen 91 03/19/24 07:29 03/19/24 07:43 03/19/24 07:43 Temperature 36.6 C Pulse Rate 88 84 Respiratory Rate 18 20 Blood Pressure 137/61 Pulse Oximetry 94 97 Oxygen Delivery High Flow Therapy with Na Oxygen Flow Rate 60 Fraction of Inspired Oxygen 90 03/19/24 07:51 Temperature Pulse Rate 81 Respiratory Rate 20 Blood Pressure Pulse Oximetry Oxygen Delivery Oxygen Flow Rate Fraction of Inspired Oxygen Intake/Output Intake/Output: Intake & Output 03/16/24 03/17/24 03/18/24 03/19/24 23:59 23:59 23:59 23:59 Intake Total 1800 1070 1820 350 Output Total 1500 1200 800 400 Balance 300 -130 1020 -50 Meds/Results Medications: Active Medications Generic Name Dose Route Start Last Admin Trade Name Cyrusq PRN Reason Stop Dose Admin Acetaminophen 650 mg 03/16/24 17:50 03/18/24 08:03 Acetaminophen 325 Mg Tablet PO 650 mg Q4H PRN Administration Mild Pain (1-5) Or Fever Hydrocodone Bitart/Acetaminophen 1 tab 03/16/24 17:49 Hydrocodone/Acetaminophen (*Crx) 5-325 Mg Tablet PO Q6H PRN Pain Rated 6 or Greater Albuterol/Ipratropium 3 ml 03/12/24 20:15 03/15/24 12:25 Ipratropium 0.5 Mg/Albuterol Sulfate 2.5 Mg Ampul.Neb 3 Ml INHALATION 3 ml Q4H PRN Administration SHORTNESS OF BREATH Alprazolam 1 mg 03/13/24 21:00 03/18/24 20:24 Alprazolam (*Crx) 0.5 Mg Tablet PO 1 mg QHS HEIDE Administration Apixaban 5 mg 03/13/24 21:00 03/16/24 20:33 Apixaban 5 Mg Tablet PO 5 mg Q12HR HEIDE Administration Atorvastatin Calcium 10 mg 03/13/24 21:00 03/18/24 20:24 Atorvastatin 10 Mg Tablet PO 10 mg HS HEIDE Administration Bisacodyl 5 mg 03/12/24 20:10 03/17/24 09:01 Bisacodyl 5 Mg Tablet Ec PO 5 mg DAILY PRN Administration Constipation Bumetanide 2 mg 03/16/24 09:00 03/19/24 09:24 Bumetanide Inj 1 Mg/4 Ml Vial IV PUSH 2 mg BID HEIDE Administration Clopidogrel Bisulfate 75 mg 03/13/24 09:00 03/14/24 07:31 Clopidogrel Bisulfate 75 Mg Tablet PO Not Given DAILY HEIDE Colestipol HCl 2 gm 03/13/24 09:00 03/19/24 09:24 Colestipol Hcl 1 Gm Tablet PO 2 gm DAILY HEIDE Administration Diltiazem HCl 360 mg 03/13/24 09:00 03/19/24 09:24 Diltiazem Hcl Cd 180 Mg Cap.24hr PO 360 mg DAILY HEIDE Administration Ferrous Sulfate 325 mg 03/16/24 09:00 03/19/24 09:24 Ferrous Sulfate [address] PO 325 mg DAILY HEIDE Administration Piperacillin/Tazobactam/Dextrose 3.375 gm in 50 mls @ 100 mls/hr 03/13/24 08:00 03/19/24 09:24 Zosyn 3.375 Gm/Ns 50 Ml IVPB 100 mls/hr Q6H HEIDE Administration Ipratropium [place] 0.5 mg 03/12/24 20:00 03/19/24 07:42 Ipratropium Br 0.02% Inh Soln 0.5 Mg/2.5 Ml Vial INHALATION 0.5 mg Q6HRT HEIDE Administration Levalbuterol HCl 0.63 mg 03/12/24 20:00 03/19/24 07:42 Levalbuterol Neb 1.25 Mg/3 Ml INHALATION 0.63 mg Q6HRT HEIDE Administration Lorazepam 0.5 mg 03/15/24 10:41 03/16/24 12:01 Lorazepam Inj (*Crx) 2 Mg/Ml Vial IV PUSH 0.5 mg Q6H PRN Administration Anxiety Prednisone 40 mg 03/16/24 08:00 03/19/24 09:24 Prednisone 20 Mg Tablet PO 03/21/24 07:59 40 mg DAILY@0800 HEIDE Administration Sertraline HCl 200 mg 03/13/24 09:00 03/19/24 09:24 Sertraline Hcl 50 Mg Tablet PO 200 mg DAILY HEIDE Administration Sodium Chloride 1 spray 03/16/24 17:48 Saline 0.65% [place] Soln 44 Ml Btl NASAL Q6HR PRN Congestion Sodium Chloride 6 ml 03/19/24 05:00 03/19/24 04:54 Sodium Chlor 3% 15 Ml Neb (Respiratory Therapy) INHALATION 03/21/24 05:01 6 ml DAILY@0500 HEIDE Administration Radiology Results: ITS Impressions Chest CTA 03/12/24 17:42 IMPRESSION: 1. No pulmonary embolism. 2. Bilateral large pleural effusion with adjacent atelectasis. 3. Mediastinal and bilateral hilar lymphadenopathy. 4. Nodule is seen in the right middle lobe and upper lobe. 6 months follow-up CT is advised. 5. Interstitial thickening in the apical areas which may indicate edema versus pneumonitis. Renal Ultrasound 03/15/24 20:32 IMPRESSION: No definite abnormal. Small simple cyst in the right kidney lower pole. Chest X-Ray 03/17/24 20:40 IMPRESSION: 1. Airspace opacities in the lower lung zones with interval improvement, consistent with atelectasis versus pneumonia. 2. Mild pulmonary edema. 3. Cardiomegaly. Labs Labs: Laboratory Results - last 24 hr 03/18/24 03/19/24 03/19/24 13:10 03:59 04:01 WBC 8.1 RBC 3.31 L Hgb 9.4 L Hct 30.5 L MCV 92.1 MCH 28.4 MCHC 30.8 L RDW 15.8 H Plt Count 211 MPV 8.9 Immature Gran % (Auto) 0.7 H Neut % (Auto) 74.5 H Lymph % (Auto) 17.3 L [place] % (Auto) 7.5 Eos % (Auto) 0.0 Baso % (Auto) 0.0 L Lymph # (Auto) 1.40 [place] # (Auto) 0.6 Eos # (Auto) 0.0 Baso # (Auto) 0.0 Abs Immat Gran (auto) 0.06 H Absolute Neuts (auto) 6.0 Absolute Nucleated RBC 0.000 Nucleated RBC % 0.0 Sodium 138 Potassium 3.8 3.3 L Chloride 102 Carbon Dioxide 29 Anion Gap 7 BUN 17 Creatinine 0.90 Estim Creat Clear Calc 39 Estimated GFR 60 Glucose 123 H Calcium 8.6 Magnesium 2.1 Total Bilirubin 0.7 AST 23 ALT 11 Alkaline Phosphatase 72 NT-Pro-B Natriuret Pep 1990 H Total Protein 7.0 Albumin 4.1
[2024-03-19 11:11] LABS: INR 1.1; Prothrombin Time 14.6 Seconds (11.1-14.7)
--- NOTE | 2024-03-19 11:22 | PCPTNOTE ---
Patient preparing to go for thoracocentesis and nursing requested patient be seen in the afternoon.
[2024-03-19 11:42] LABS: Lactate Dehydrogenase 363 U/L (120-246)
[2024-03-19 12:51] LABS: pH Pleural Fluid > 7.500 (7.210-7.500)
[2024-03-19] MEDS: guaiFENesin 12 HR 600 MG TABCR 1200 MG PO ×2 (12:59→21:05)
[2024-03-19] MEDS: ACETAMINOPHEN 325 MG TABLET 650 MG PO (13:01)
[2024-03-19 13:39] LABS: Pleural fluid source Pleural fluid
[2024-03-19 13:40] LABS: Appearance Pleural Fluid Hazy (Clear); Color Pleural Fluid Other (Colorless); Lymphocytes Pleural Fluid 32 %; Macrophages Pleural Fluid 38 %; Mesothelial Cells Pleural Flui 13 %; Neutrophils Pleural Fluid 17 % (0-25); Nucleated Cell Pleural Fluid 2109 /uL (0-1000); RBC Pleural Fluid 7000 /uL (0-10000)
--- NOTE | 2024-03-19 17:16 | P.PNIM_ITS ---
Progress Note: A&P Assessment and Plan (1) Acute on chronic respiratory failure: Qualifiers: Respiratory failure complication: hypoxia Qualified Code(s): J96.21 - Acute and chronic respiratory failure with hypoxia Code(s): J96.20 - Acute and chronic respiratory failure, unspecified whether with hypoxia or hypercapnia Status: Acute Assessment and Plan: Patient here for SOB. She wears 4L O2 during the day and 6L with sleeping. She does not have KAREEM. She is very inactive at home due to DELGADO. WBC normal. DDimer 2.67. Troponin negative x1. BNP 940. COVID, influenza and RSV PCR negative. ABG 7.47/41/125 on 15L NRBM CXR showing mild pulmonary edema and small pleural effusion. CTA Chest negative for PE but with bilateral large pleural effusion with atelectasis. Mediastinal and bilateral hilar lymphadenopathy noted. RML and RUL pulmonary nodule noted. Apical areas with edema vs pneumonitis. 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 Treated with Vorconazole for 14 days. She was given Lasix 80mg IV and Duoneb in the ED Suspect CHF exacerbation and related to pleural effusions. Can not exclude PNA ore recurrent aspergillus. She was started on IV diuretics and tolerating this well. Echo as below that does show right to left shunt. Hypoxia worsened. Related to worsening shunt? Pleural effusions? CHF? Aspergillus recurrence and plugs? Pulm following and appreciate their input. Patient now able to expectorate plugs with current treatment and with hemoptysis. Able to have Rt thoracentesis today. Able to be weaned to 10L today. Wean O2 as tolerated. Continue bronchodilators and steroids. (2) CHF (congestive heart failure): Code(s): I50.9 - Heart failure, unspecified Status: Acute Assessment and Plan: Echo showing right to left shunt by positive agitated saline study, normal LV size and systolic fxn with EF 50-55%, dilated RV with preserved systolic function and moderate , moderate AI and mild MR. In Mar 2023, EF 60-65%, Grade II diastolic dysfunction, akinetic basal inferior wall and moderate , moderate MR and mild pulmonary HTN. Moderate has worsened with ESTRELLITA 1.5 -> 1.1cm2 now. Imaging as above. BNP 2940 Unclear how extensive the shunt is or if the moderate is causing issues. UOP not accurate. Continue IV Bumex. Resume empagliflozin Monitor UOP, renal fxn and resp status. (3) Chronic kidney disease, stage 3: Code(s): N18.30 - Chronic kidney disease, stage 3 unspecified Status: Chronic Assessment and Plan: BUN and Cr normal but CrCl low in the 30's chronically. Cr was up to 1.2 probably related to diuresis and/or contrast /. Consider also related to hypoxia. Renal US showing no significant abnormalities. Urine studies are prerenal. Cr better and at 0.9 today and stable. Continue to monitor closely on diuretics. Follow (4) Pleural effusion: Code(s): J90 - Pleural effusion, not elsewhere classified Status: Acute Assessment and Plan: Imaging as above. She has bilateral thoracentesis ordered but on hold waiting fo r Plavix to wash out. Probably related to CHF but consider malignancy given the lung nodules noted or fungal. Eliquis stopped and started on Lovenox over the weekend. Off anticoagulation for Rt thoracentesis today with removal of 300mL of kenneth colored fluid. pH >7.5 with 7K RBC and 2k WBC (17% PMNs, 32% lynph, 38% macrophages). Gram stain showing many WBC but no MO. Will proceed with left thoracentesis. Resume Eliquis tomorrow night after thoracentesis. (5) Atrial fibrillation: Code(s): I48.91 - Unspecified atrial fibrillation Status: Chronic Assessment and Plan: Heart rate midly elevated 90-110 range. TSH normal She has been resumed on her Eliquis (on hold for thoracentesis) She remains on Diltiazem. Monitor on tele. (6) Pneumonia: Qualifiers: Laterality: bilateral Lung location: unspecified part of lung Pneumonia type: due to unspecified organism Qualified Code(s): J18.9 - Pneumonia, unspecified organism Code(s): J18.9 - Pneumonia, unspecified organism Status: Acute Assessment and Plan: Imaging as above. WBC normal. BCx NGTD. MRSA nasal swab negative. Started on Zosyn and Doxy. Doxy x 5 days. (7) Pulmonary nodules: Code(s): R91.8 - Other nonspecific abnormal finding of lung field Status: Acute Assessment and Plan: CT showing RML 7mm nodule that is larger than prior imaging and a right apical nodule at 1cm. Also with mediastinal and bilateral hilar adenopathy. As above. Will need to be followed as outpatient. Plan Anemia - Chronic for the past year with Hgb 9-10 range mostly. Hgb stable and within her baseline. Iron studies showing normal iron and TIBC but low iron sat at 8%. Ferritin 45. B12 319 and MMA ordered. Folate normal. Added iron supplements DVT prophylaxis -SCDs Code Status - DNR Subjective Date/time seen: 03/19/24 17:16 Interval history: 78yo female with chronic respiratory failure, CKD 3, HTN and pAFib here for shortness of breath. Feeling well. Out of bed today. no CP. Still with productive cough of brown sputum and now more khadra hemoptysis. Exam Narrative: AF 98.4 123/63 114 18 92% HFNC Gen - NARD Chest - improved air exchange in the right base CV - irregularly irregular. Tele showing AFib with HR overall better controlled Abd - Soft, NT/ND, Positive BS Ext - No pedal edema Psych - Nml mood and affect Skin - Warm and dry Objective Data Vital Signs Vital Signs: Vital Signs - 24 hr 03/18/24 19:56 03/18/24 20:49 03/18/24 20:46 Temperature 97.8 F Pulse Rate 109 H 105 H Respiratory Rate 16 20 Blood Pressure 136/61 Pulse Oximetry 97 92 Oxygen Delivery High Flow Therapy with Na Oxygen Flow Rate 60 Fraction of Inspired Oxygen 90 03/18/24 20:56 03/18/24 20:00 03/18/24 20:00 Temperature Pulse Rate 103 H 104 H Respiratory Rate 20 Blood Pressure Pulse Oximetry 95 Oxygen Delivery High Flow Therapy with Na Oxygen Flow Rate 60 Fraction of Inspired Oxygen 89 03/18/24 22:00 03/18/24 23:45 03/19/24 00:00 Temperature 97.9 F Pulse Rate 101 H 97 Respiratory Rate 18 Blood Pressure 137/67 Pulse Oximetry 98 100 Oxygen Delivery High Flow Therapy with Na Oxygen Flow Rate 60 Fraction of Inspired Oxygen 91 03/19/24 00:00 03/19/24 01:38 03/19/24 02:00 Temperature Pulse Rate 94 95 89 Respiratory Rate 20 Blood Pressure Pulse Oximetry Oxygen Delivery Oxygen Flow Rate Fraction of Inspired Oxygen 03/19/24 03:53 03/19/24 01:50 03/19/24 04:55 Temperature 97.9 F Pulse Rate 98 97 90 Respiratory Rate 18 20 19 Blood Pressure 140/89 Pulse Oximetry 92 Oxygen Delivery Oxygen Flow Rate Fraction of Inspired Oxygen 03/19/24 05:10 03/19/24 04:00 03/19/24 04:00 Temperature Pulse Rate 83 91 Respiratory Rate 19 Blood Pressure Pulse Oximetry 93 Oxygen Delivery High Flow Therapy with Na Oxygen Flow Rate 60 Fraction of Inspired Oxygen 91 03/19/24 06:00 03/19/24 07:29 03/19/24 07:43 Temperature 97.8 F Pulse Rate 80 88 Respiratory Rate 18 Blood Pressure 137/61 Pulse Oximetry 94 97 Oxygen Delivery High Flow Therapy with Na Oxygen Flow Rate 60 Fraction of Inspired Oxygen 90 03/19/24 07:43 03/19/24 07:51 03/19/24 08:00 Temperature Pulse Rate 84 81 85 Respiratory Rate 20 20 Blood Pressure Pulse Oximetry Oxygen Delivery Oxygen Flow Rate Fraction of Inspired Oxygen 03/19/24 10:00 03/19/24 08:00 03/19/24 11:23 Temperature 98.0 F Pulse Rate 94 91 Respiratory Rate 18 Blood Pressure 130/66 Pulse Oximetry 97 92 Oxygen Delivery High Flow Nasal Cannula Oxygen Flow Rate 10 Fraction of Inspired Oxygen 03/19/24 13:07 03/19/24 13:28 03/19/24 13:28 Temperature 98.0 F Pulse Rate 101 H 90 Respiratory Rate 24 H 20 Blood Pressure 132/66 Pulse Oximetry 96 96 Oxygen Delivery High Flow Nasal Cannula Oxygen Flow Rate 10 Fraction of Inspired Oxygen 03/19/24 13:38 03/19/24 12:00 03/19/24 12:00 Temperature Pulse Rate 99 94 Respiratory Rate 20 Blood Pressure Pulse Oximetry 96 Oxygen Delivery High Flow Nasal Cannula Oxygen Flow Rate 10 Fraction of Inspired Oxygen 03/19/24 14:00 03/19/24 15:39 03/19/24 16:30 Temperature 98.4 F Pulse Rate 89 114 H Respiratory Rate 18 Blood Pressure 123/63 Pulse Oximetry 90 92 Oxygen Delivery High Flow Nasal Cannula Oxygen Flow Rate 10 Fraction of Inspired Oxygen Intake/Output Intake/Output: Intake & Output 03/16/24 03/17/24 03/18/24 03/19/24 23:59 23:59 23:59 23:59 Intake Total 1800 1070 1820 400 Output Total 1500 9188 064 6459 Balance 300 -130 1020 -850 Meds/Results Medications: Active Medications Generic Name Dose Route Start Last Admin Trade Name Freq PRN Reason Stop Dose Admin Acetaminophen 650 mg 03/16/24 17:50 03/19/24 13:01 Acetaminophen 325 Mg Tablet PO 650 mg Q4H PRN Administration Mild Pain (1-5) Or Fever Hydrocodone Bitart/Acetaminophen 1 tab 03/16/24 17:49 Hydrocodone/Acetaminophen (*Crx) 5-325 Mg Tablet PO Q6H PRN Pain Rated 6 or Greater Albuterol/Ipratropium 3 ml 03/12/24 20:15 03/15/24 12:25 Ipratropium 0.5 Mg/Albuterol Sulfate 2.5 Mg Ampul.Neb 3 Ml INHALATION 3 ml Q4H PRN Administration SHORTNESS OF BREATH Alprazolam 1 mg 03/13/24 21:00 03/18/24 20:24 Alprazolam (*Crx) 0.5 Mg Tablet PO 1 mg QHS HEIDE Administration Apixaban 5 mg 03/13/24 21:00 03/16/24 20:33 Apixaban 5 Mg Tablet PO 5 mg Q12HR HEIDE Administration Atorvastatin Calcium 10 mg 03/13/24 21:00 03/18/24 20:24 Atorvastatin 10 Mg Tablet PO 10 mg HS HEIDE Administration Bisacodyl 5 mg 03/12/24 20:10 03/17/24 09:01 Bisacodyl 5 Mg Tablet Ec PO 5 mg DAILY PRN Administration Constipation Bumetanide 2 mg 03/16/24 09:00 03/19/24 09:24 Bumetanide Inj 1 Mg/4 Ml Vial IV PUSH 2 mg BID HEIDE Administration Clopidogrel Bisulfate 75 mg 03/13/24 09:00 03/14/24 07:31 Clopidogrel Bisulfate 75 Mg Tablet PO Not Given DAILY HEIDE Colestipol HCl 2 gm 03/13/24 09:00 03/19/24 09:24 Colestipol Hcl 1 Gm Tablet PO 2 gm DAILY HEIDE Administration Diltiazem HCl 360 mg 03/13/24 09:00 03/19/24 09:24 Diltiazem Hcl Cd 180 Mg Cap.24hr PO 360 mg DAILY HEIDE Administration Ferrous Sulfate 325 mg 03/16/24 09:00 03/19/24 09:24 Ferrous Sulfate [address] PO 325 mg DAILY HEIDE Administration Guaifenesin 1,200 mg 03/19/24 11:10 03/19/24 12:59 Guaifenesin 12 Hr 600 Mg Tabcr PO 1,200 mg Q12HR HEIDE Administration Piperacillin/Tazobactam/Dextrose 3.375 gm in 50 mls @ 100 mls/hr 03/13/24 08:00 03/19/24 15:47 Zosyn 3.375 Gm/Ns 50 Ml IVPB 100 mls/hr Q6H HEIDE Administration Ipratropium [place] 0.5 mg 03/12/24 20:00 03/19/24 13:26 Ipratropium Br 0.02% Inh Soln 0.5 Mg/2.5 Ml Vial INHALATION 0.5 mg Q6HRT HEIDE Administration Levalbuterol HCl 0.63 mg 03/12/24 20:00 03/19/24 13:26 Levalbuterol Neb 1.25 Mg/3 Ml INHALATION 0.63 mg Q6HRT HEIDE Administration Lorazepam 0.5 mg 03/15/24 10:41 03/16/24 12:01 Lorazepam Inj (*Crx) 2 Mg/Ml Vial IV PUSH 0.5 mg Q6H PRN Administration Anxiety Sertraline HCl 200 mg 03/13/24 09:00 03/19/24 09:24 Sertraline Hcl 50 Mg Tablet PO 200 mg DAILY HEIDE Administration Sodium Chloride 1 spray 03/16/24 17:48 Saline 0.65% [place] 44 Ml Btl NASAL Q6HR PRN Congestion Sodium Chloride 6 ml 03/19/24 05:00 03/19/24 04:54 Sodium Chlor 3% 15 Ml Neb (Respiratory Therapy) INHALATION 03/21/24 05:01 6 ml DAILY@0500 [facility] Administration Sodium Chloride 6 ml 03/20/24 05:00 Sodium Chlor 3% 15 Ml Neb (Respiratory Therapy) INHALATION 03/22/24 05:01 DAILY@0500 [facility] Radiology Results: ITS Impressions Chest CTA 03/12/24 17:42 IMPRESSION: 1. No pulmonary embolism. 2. Bilateral large pleural effusion with adjacent atelectasis. 3. Mediastinal and bilateral hilar lymphadenopathy. 4. Nodule is seen in the right middle lobe and upper lobe. 6 months follow-up CT is advised. 5. Interstitial thickening in the apical areas which may indicate edema versus pneumonitis. Renal Ultrasound 03/15/24 20:32 IMPRESSION: No definite abnormal. Small simple cyst in the right kidney lower pole. Chest X-Ray 03/19/24 12:43 IMPRESSION: 1. No pneumothorax or evident residual right pleural effusion post right thoracentesis. 2. Likely congestive heart failure with cardiomegaly and persistent diffuse mild pulmonary edema. 2. Small left pleural effusion and associated basilar atelectasis and/or pneumonia. Thoracentesis Ultrasound 03/19/24 12:48 IMPRESSION: 1. Successful ultrasound-guided thoracentesis yielding 300 mL of kenneth-colored fluid. Labs Labs: Laboratory Results - last 24 hr 03/19/24 03/19/24 03/19/24 03:59 04:01 10:46 WBC 8.1 RBC 3.31 L Hgb 9.4 L Hct 30.5 L MCV 92.1 MCH 28.4 MCHC 30.8 L RDW 15.8 H Plt Count 211 MPV 8.9 Immature Gran % (Auto) 0.7 H Neut % (Auto) 74.5 H Lymph % (Auto) 17.3 L [place] % (Auto) 7.5 Eos % (Auto) 0.0 Baso % (Auto) 0.0 L Lymph # (Auto) 1.40 [place] # (Auto) 0.6 Eos # (Auto) 0.0 Baso # (Auto) 0.0 Abs Immat Gran (auto) 0.06 H Absolute Neuts (auto) 6.0 Absolute Nucleated RBC 0.000 Nucleated RBC % 0.0 PT 14.6 D INR 1.1 Sodium 138 Potassium 3.3 L Chloride 102 Carbon Dioxide 29 Anion Gap 7 BUN 17 Creatinine 0.90 Estim Creat Clear Calc 39 Estimated GFR 60 Glucose 123 H Calcium 8.6 Total Bilirubin 0.7 AST 23 ALT 11 Alkaline Phosphatase 72 Lactate Dehydrogenase 363 H NT-Pro-B Natriuret Pep 1990 H Total Protein 7.0 Albumin 4.1 Pleural Fluid Source Pleural Color Pleural Appearance Pleural pH Pleural RBC Pleural Nuc Cells Pleural Neutrophils Pleural Lymphocytes Pleural Macrophages Pleural Mesothelial 03/19/24 12:20 WBC RBC Hgb Hct MCV MCH MCHC RDW Plt Count MPV Immature Gran % (Auto) Neut % (Auto) Lymph % (Auto) [place] % (Auto) Eos % (Auto) Baso % (Auto) Lymph # (Auto) [place] # (Auto) Eos # (Auto) Baso # (Auto) Abs Immat Gran (auto) Absolute Neuts (auto) Absolute Nucleated RBC Nucleated RBC % PT INR Sodium Potassium Chloride Carbon Dioxide Anion Gap BUN Creatinine Estim Creat Clear Calc Estimated GFR Glucose Calcium Total Bilirubin AST ALT Alkaline Phosphatase Lactate Dehydrogenase NT-Pro-B Natriuret Pep Total Protein Albumin Pleural Fluid Source Pleural fluid Pleural Color Other Pleural Appearance Hazy Pleural pH > 7.500 H Pleural RBC 7000 Pleural Nuc Cells 2109 H Pleural Neutrophils 17 Pleural Lymphocytes 32 Pleural Macrophages 38 Pleural Mesothelial 13
[2024-03-19] MEDS: ALPRAZolam (*CRX) 0.5 MG TABLET 1 MG PO (21:04)
[2024-03-19] MEDS: ATORVASTATIN 10 MG TABLET PO (21:04)
[2024-03-20] VITALS (22 sets, daily range): BP systolic 113–132; BP diastolic 54–64; PULSE 84–106; RESP 14–20; TEMP 36.3–36.9; O2SAT 91–99
[2024-03-20] MEDS: IPRATROPIUM BR 0.02% INH SOLN 0.5 MG/2.5 ML VIAL INHALATION ×4 (01:38→20:06)
[2024-03-20] MEDS: LEVALBUTEROL NEB 1.25 MG/3 ML 0.63 MG INHALATION ×4 (01:38→20:06)
[2024-03-20 07:26] LABS: Basophils Percent Auto 0.1 % (0.2-1.2); Hematocrit 31.7 % (37.0-47.0); Hemoglobin 9.3 g/dL (12.0-15.0); Immature Granulocyte Absolute 0.09 K/mm3 (0.00-0.031); Immature Granulocyte Percent A 1.2 % (0-0.5); Lymphocytes Percent Auto 11.5 % (18.3-44.2); Mean Corpuscular HGB Conc 29.3 g/dl (32-36); Mean Corpuscular Hemoglobin 27.5 pg (26-34); Mean Corpuscular Volume 93.8 fl (80-100); Mean Platelet Volume 9.1 fl (7.4-10.4); Monocytes Absolute Auto 0.5 K/mm3 (0.1-0.6); Monocytes Percent Auto 5.9 % (2.6-8.5); Neutrophils Absolute Auto 6.4 K/mm3 (1.3-6.7); Neutrophils Percent Auto 81.3 % (45.5-73.1); Platelet Count Result 218 k/mm3 (150-375); Red Blood Count 3.38 M/mm3 (4.2-5.4); Red Cell Distribution Width 15.6 % (11.5-14.5); White Blood Count 7.8 K/mm3 (4.5-10.0)
[2024-03-20 07:56] LABS: Alanine Aminotransferase 13 U/L (6-35); Albumin Level 3.9 g/dL (3.5-5.1); Alkaline Phosphatase 76 U/L (38-126); Anion Gap 2 mmol/L (4-12); Aspartate Amino Transferase 23 U/L (14-36); Bilirubin,Total 0.7 mg/dL (0.2-1.3); Blood Urea Nitrogen 20 mg/dL (7-17); Carbon Dioxide 35 mmol/L (22-30); Chloride 100 mmol/L (98-107); Estimated CRCL calculation 36 ml/min; Estimated Glomerular Filt Rate 53; Glucose 160 mg/dL (65-110); Magnesium 2.2 mg/dL (1.6-2.3); Sodium 137 mmol/L (137-145)
[2024-03-20 08:06] LABS: Glucose Point of Care 143 mg/dl (65-105)
[2024-03-20 08:29] LABS: Platelet Estimate Adequate (Adequate); Schistocytes None Seen
--- NOTE | 2024-03-20 09:13 | PCNWS ---
Weekly nutritional screen. Patient is tolerating current heart healthy, 2gm Na diet with adequate intake 75-100%. No weight loss reported. No nutritional recommendations at this time.
[2024-03-20] MEDS: PIPERACILLN/TAZ 3.375GM/NS50ML 3.375 GM/50 ML BAG IVPB ×3 (09:36→21:15)
[2024-03-20] MEDS: COLESTIPOL HCL 1 GM TABLET 2 GM PO (09:38)
[2024-03-20] MEDS: SERTRALINE HCL 50 MG TABLET 200 MG PO (09:39)
[2024-03-20] MEDS: guaiFENesin 12 HR 600 MG TABCR 1200 MG PO ×2 (09:39→21:15)
[2024-03-20] MEDS: EMPAGLIFLOZIN 10 MG TABLET PO (09:39)
[2024-03-20] MEDS: dilTIAZem HCL CD 180 MG CAP.24HR 360 MG PO (09:40)
[2024-03-20] MEDS: FERROUS SULFATE 325 MG TABLET DR PO (09:40)
[2024-03-20] MEDS: BUMETANIDE INJ 1 MG/4 ML VIAL 2 MG IV PUSH ×2 (09:50→17:46)
--- NOTE | 2024-03-20 11:13 | PC.NURSE ---
5 beat run v tach
[2024-03-20 11:40] LABS: Glucose Point of Care 125 mg/dl (65-105)
--- NOTE | 2024-03-20 12:30 | PM.PNPUL ---
Progress Note: A&P Assessment and Plan (1) Acute on chronic respiratory failure: Qualifiers: Respiratory failure complication: hypoxia Qualified Code(s): J96.21 - Acute and chronic respiratory failure with hypoxia Code(s): J96.20 - Acute and chronic respiratory failure, unspecified whether with hypoxia or hypercapnia Status: Acute Assessment and Plan: Patient with chronic hypoxemic respiratory failure on 4 L at rest, 4-5 with activity and 6 L with sleep. currently admitted with worsening acute on chronic hypoxic respiratory failure requiring BiPAP. ABG on admission 7.47/41/125 on a non-rebreather. Etiology of worsening hypoxemic respiratory failure includes fluid overload, pneumonia, COPD exacerbation, bilateral pleural effusions, positive bubble study with [id number] shunt after 4-5 beats without Valsalva and after 2 beats with Valsalva with bubbles appearing to come from the pulmonary vein rather than through the atrial septum. 03/19/24: overall since admission the patient feels the same or a little bit better. she still has shortness of breath, hot feelings, sweats. She is afebrile. White blood cell count is 8.1, creatinine is 0.9. BNP is 1990 ( decreased from 2940 and 2740 on admission). When I enter the room the patient was on Airvo 60 L 91% FiO2 with saturations 95% on her right ear probe and 100% on her right hand finger probe. I changed her to 15 L nasal cannula and her right hand saturation was 95%. I decreased her to 10 L and her right hand saturation was 92-93% with a right ear probe measuring 88% and a left hand saturation measuring 91-92%. Plan: Goal saturation 90-94%. Wean oxygen accordingly. Will continue treatment for fluid overload with Bumex 2 mg IV b.i.d., Pneumonia with Zosyn day 7 and doxycycline day 5 (MRSA negative, COVID, RSV and Influenza negative, sputum for AFB and fungus pending. Respiratory pathogen panel pending). Regarding pleural effusions; chest x-ray demonstrates improved bilateral pleural effusions, the patient is scheduled for a right thoracentesis later today and will send full set of chemistries, microbiology and cytology studies. Will continue treatment for possible COPD exacerbation with prednisone 40 mg p.o. q.day. No wheezes,day 5 today and will discontinue. Continue levalbuterol and ipratropium nebulizers q.6 hours. Will continue Vest treatment, coronary flutter valve and will add guaifenesin 1200 mg p.o. b.i.d. to help with sputum expectoration. Later in the day the patient had a thoracentesis with 300 mL of kenneth fluid removed. G stain was many white blood cells, no organisms seen. PH greater than 7.50, white blood cell count 2109 with a differential neutrophils 17%, lymphocytes 32%, macrophages 38%, mesothelial cells 13%. she says her breathing immediately improved with the thoracentesis. 03/20/24: Patient slept with 10 L nasal cannula S night and said she slept well. She finished physical therapy and was walking in the room and did well. Currently she tells me she is breathing back to her baseline. She still has a cough with hemoptysis but overall is producing less phlegm. She is afebrile. White blood cell count 9.8, creatinine 1.0. When I enter the room she was on 10 L nasal cannula oxygen with saturations 99%. I decreased her to 4 L nasal cannula and after 9 minutes her saturations were 95%. chest x-ray today showed no pleural effusions, diffuse interstitial alveolar infiltrates unchanged. Her weight today is 70.4 in overall she is positive 400 mL since admission. Plan: Patient continues to improve with treatment for Fluid overload with pleural effusion, possible pneumonia and possible COPD exacerbation. Currently she Is on 4 L nasal cannula rest which is her baseline. A perform overnight oximetry on 6 L tonight. Goal saturation 90-94%, wean oxygen accordingly. If the patient continues to improve will consider discharge on 03/21/2024 on these pulmonary medications: Augmentin 875-125 at 1 pill b.i.d. x5 days Stiolto Respimat 2.5-2.5 at 1 puff twice a day, Rescue albuterol inhaler q.4 hours p.r.n. shortness of breath and wheezing. Guaifenesin 600 mg p.o. b.i.d. p.r.n.. Oxygen at rest and with activity per formal home O2 assessment which will performed on day of discharge. Oxygen at night per overnight oximetry to be performed on 03/20/2024. Discussed with Dr. Gross. Will follow with you. (2) Acute exacerbation of chronic obstructive pulmonary disease (COPD): Code(s): J44.1 - Chronic obstructive pulmonary disease with (acute) exacerbation Status: Acute Assessment and Plan: Gold grade 2 group E COPD Patient with 82.5 pack year tobacco use, quit 10/06/2022.? Alpha 1 anti trypsin genotype MM.? 07/17/2021: FEV1 is 1.25 L, 62% predicted, FEV1: FVC ratio 59%, no hyperinflation, DLCO moderately decreased at 40% and remains moderately decreased when adjusted for alveolar volume.? CT scan of the chest on 07/20/2022 shows stable pulmonary nodules with moderate apical predominant centrilobular emphysema.? She has used oxygen with exertion for about 2 years and 01/2023 admission she has been on oxygen around the clock.? Currently using 4 L nasal cannula At rest, 4-5 L with activity and 6 L at night. 01/26/23 - echo: EF 65-70%, mildly increased LV wall thickness, LV diastolic function indeterminate, mild aortic valve stenosis area 1.7, mild-mod aortic and tricuspid valve regurgitation, mild pulm HTN with RVSP 44mmHg. echo 03/22/2023 with moderate aortic stenosis with a valve area of 1.5. Echocardiogram 03/15/2024 with moderate aortic stenosis with a valve area of 1.1, moderate aortic regurgitation. RVSP 50, positive right to left bubble. Recent activity: 01/24/23 to 01/30/23, inpatient [facility]; COPD exacerbation; home for a few days, 02/05/23 to 02/14/23; entered rehab due to debilitation 02/17/23 to 02/19/23; fell and broke hip; inpatient; Ortho consult= non-surgical injury, went to rehab Feb 21, 2023 through 03/07/23 03/17/2023 through 04/12/2023:? Admitted to [facility] with COVID pneumonia and hypoxic respiratory failure requiring continuous BiPAP, high-flow nasal cannula oxygen.? Treated with remdesivir, dexamethasone and baricitinib with slow improvement. ?Mucus plugging with left upper lobe collapse and right middle lobe collapse treated with bronchodilators, dornase, Mucomyst, chest PT. Aspergillus in sputum without focal consolidations or cavities and treated with voriconazole for 14 days for colonization.? Developed acute pulmonary edema in house with re-initiation of noninvasive ventilation responded to diuretics.? Right thoracentesis with 400 mL of an exudative, neutrophilic, noninfected cytology negative effusion.? Weaned to 2 L and discharged to inpatient rehab on 04/12/2023 and discharged back to alf on 04/25/2023. 03/19/24: overall since admission the patient feels the same or a little bit better. she still has shortness of breath, hot feelings, sweats. She has no wheezing. Plan: Today is day 5 of prednisone and will discontinue. Continue levalbuterol and ipratropium nebulizers q.6 hours. Continue Vest therapy and Cornet flutter valve to aid expectoration. Will add guaifenesin 1200 mg p.o. b.i.d. today. 03/20/24: patient continues to improve and says she is breathing at her baseline. She still has phlegm but this has improved. Plan: Continue levalbuterol and ipratropium nebulizers q.6 hours, Vest therapy, Cornet flutter valve, guaifenesin 1200 mg p.o. b.i.d.. (3) Pulmonary nodules: Code(s): R91.8 - Other nonspecific abnormal finding of lung field Status: Acute Assessment and Plan: CT chest 03/12/2024 compared to 03/30/2023 with 7 mm RML nodule, needs [address] chest as this has grown; the 1 cm nodule in the right apex is stable. Plan: Repeat CT scan on 09/10/2024. (4) Aortic valve stenosis: Qualifiers: Cardiac valve disease etiology: nonrheumatic Qualified Code(s): I35.0 - Nonrheumatic aortic (valve) stenosis Code(s): I35.0 - Nonrheumatic aortic (valve) stenosis Status: Acute Assessment and Plan: Echocardiogram 01/26/2022 with aortic valve area 1.7 cm, PASP 44. Echocardiogram 03/22/2023 with moderate aortic stenosis valve area 1.5 cm and mild TR with PASP 43. Echocardiogram 03/15/2024 reviewed with national account representative and valve area is 1.1 with moderate aortic stenosis and moderate aortic regurgitation. Mildly enlarged right ventricle with normal function. Right atrium is normal. Positive right to left bubble study at 4-5 beats with no Valsalva and with 2 beats with Valsalva with bubbles appearing from the pulmonary vein rather than the septum. plan: For aortic stenosis this could be contributing to patient's clinical issues and will repeat an echocardiogram in 6 months. (5) Right to left cardiovascular shunt: Status: Acute Assessment and Plan: Echocardiogram 03/15/2024 reviewed with national account representative and aortic valve area is 1.1 with moderate aortic stenosis and moderate aortic regurgitation. Mildly enlarged right ventricle with normal function. Right atrium is normal. Positive right to left bubble study at 4-5 beats with no Valsalva and with 2 beats with Valsalva with bubbles appearing from the pulmonary vein rather than through the septum. 03/19/24: Plan: Regarding the right to left shunt which is appears to be predominantly an intrapulmonary shunt, if she does not improve with treatment for fluid overload, pneumonia, COPD will consider further assessment to determine if there is a cardiac shunt such as a PFO with ROSEMARY and or right ventricular catheterization. Echocardiographically it does not appear she has a chronic PFO as she is 78 years old making a congenital abnormality unlikely and her pulmonary hypertension has been relatively stable over the last year with normal right ventricular function. Of note, the patient is already on chronic anticoagulated for atrial fibrillation. 03/20/24: Patient's oxygenation has improved overnight and currently on 4 L at rest. Plan: Continue chronic anticoagulation with apixaban 5 mg p.o. q.12 hours. Goal saturation 90-94%. Subjective Date/time seen: 03/20/24 12:30 Interval history: new; 03/15/24; Maria Dolores Henry is 78 years old, followed by our practice, has COPD, chronic respiratory failure, uses O2 at home. She is using 4-5 L/min at rest, 6 L/min with exertion and sleep. She saw Dr Donato in the office Mar 05, and was stable according to his note. Her COPD regimen included Stiolto Respimat 2.5-2.51 puff daily and albuterol rescue inhaler 3-4 times per day, guaifenesin 600 mg every other day and Lasix 40 mg b.i.d.. She has not smoked since September of 2023. She has no secondhand tobacco exposure. She is up-to-date on all vaccinations.She was admitted to [place] in Mar 2023 with pneumonia, pleural effusions, COVID; sputum grew out Aspergillus without focal lung consolidations or cavitations and she was treated with voriconazole for 14 days for presumed colonization Mar 2023. . She was admitted on TuesdayMar 12. She says that she has not been feeling well for a few weeks. She is up-to-date on her vaccinations influenza, RSV, COVID. on admission, the PCR for these (-). At first, her sputum was brown but now she has a barking cough, says she feels like she has a croupy cough. ABG = no CO2 retention, pH 7.47, pCO2 41, PO2 125 on 15 L non-rebreather mask.. CXR = no infiltrate, mainly effusion, CTA on March 14 shows large effusion on the right smaller effusion on the left and a 7 mm nodule in the right anterior lung. Treated with Zosyn and doxycycline, now po doxycycline. She has a higher O2 requirement today, up to 15 L /min. She has no fever, no sputum now. Her echo 03/13 shows a right to left shunt. not sure how significant this is, but shunts cause hypoxemia. WBC = 7.1 Mar 12, now 7.4k; D-Dimer 2.67. Negative troponin. BNP 2940. Mar 15 CXR = more pulmonary edema, right pleural effusion, no infiltrate. WBC is stable, 7.4k. She was given Lasix 80mg IV and Duoneb in the ED Suspect CHF exacerbation and related to pleural effusions. Can not exclude PNA. 03/17: The patient is on much higher amounts of O2. Used CPAP overnight, today used non-rebreather,, now on high flow nasal cannula. Saturation is 90-91% using 60 L/min and FiO2 90%. this is the highest amount of O2 she has been on this admission. A year ago, she had COVID, low O2 saturation, also had a thoracentesis, grew Aspergillus on sputum, was treated with voriconazole x 14 days. 03/18: Still on Air Vo 60L & 90%, improved saturation, 95%. sometimes, her saturaiotn drops into the 70s. Resp rate 20-24, no fever. CXR last night showed some improvement. She had Dornase adrian mucolytic, was fitted for the vibratory vest, and is using Cornet bonnie. She has expectorated sputum in a container by the bed, reddish liquid with dark plugs, consistent with Aspergillus. She notes that she feels very similar to how she felt last March, when she had Aspergillus in her sputum. Procalcitonin Dec 6 was 0.6, normal. This is not consistent with bacterial infection. K+ 2.8 today, replaced. 03/19/24: overall Since admission the patient feels the same or a little bit better. she still has shortness of breath, hot feelings, sweats. She is afebrile. White blood cell count is 8.1, creatinine is 0.9. BNP is 1990 ( decreased from 2940 and 2740 on admission). When I enter the room the patient was on Airvo 60 L 91% FiO2 with saturations 95% on her right ear probe and 100% on her right hand finger probe. I changed her to 15 L nasal cannula and her right hand saturation was 95%. I decreased her to 10 L and her right hand saturation was 92-93% with a right ear probe measuring 88% and a left hand saturation measuring 91-92%. Later in the day the patient had a thoracentesis with 300 mL of kenneth fluid removed. G stain was many white blood cells, no organisms seen. PH greater than 7.50, white blood cell count 2109 with a differential neutrophils 17%, lymphocytes 32%, macrophages 38%, mesothelial cells 13%. 03/20/24: Patient slept with 10 L nasal cannula S night and said she slept well. She finished physical therapy and was walking in the room and did well. When I enter the room she was on 10 L nasal cannula oxygen with saturations 99%. I decreased her to 4 L nasal cannula and after 9 minutes her saturations were 95%. chest x-ray today showed no pleural effusions, diffuse interstitial alveolar infiltrates unchanged. Her weight today is 70.4 in overall she is positive 400 mL since admission. DATA: * 03/17/24; CXR; Airspace opacities in the lower lung zones with interval improvement, consistent with atelectasis versus pneumonia. 2. Mild pulmonary edema. 3. Cardiomegaly. * 03/12/2024 CXR; There is a diffuse interstitial pattern in the lungs, consistent with pulmonary edema. There is mild atelectasis at the lung bases. There are small pleural effusions. No pneumothorax. Cardiomegaly is noted. IMPRESSION: 1. Mild pulmonary edema. 2. Small pleural effusions. 3. Cardiomegaly. * 03/13/24 chest CTA - Nodule is seen in the right middle lobe measuring 7 mm. 6 months follow-up advised. This nodule is larger than the previous study. Interstitial thickening is seen in the apical area which may indicate pneumonitis versus edema. Minimal atelectatic changes seen in the middle lobe. Nodule is seen in the right apical area measuring 1 cm. No pulmonary masses. No pneumothorax. Bilateral large pleural effusion with adjacent atelectasis seen. . VISUALIZED UPPER ABDOMEN: Status post cholecystectomy. small left kidney cyst. Possible left kidney lower pole a stone. Otherwise, the visualized upper abdomen is normal. MUSCULOSKELETAL: Soft tissues: The superficial soft tissues are normal. Bones: Age appropriate degenerative changes of the spine. Old compression fracture is seen in T7. IMPRESSION: 1. No pulmonary embolism. 2. Bilateral large pleural effusion with adjacent atelectasis. 3. Mediastinal and bilateral hilar lymphadenopathy. 4. Nodule is seen in the right middle lobe and upper lobe. 6 months follow-up CT is advised. 5. Interstitial thickening in the apical areas which may indicate edema versus pneumonitis. * 03/13/24 = EchoThere is [id number] shunt evidenced by the positive agitated saline study. 2. The left ventricle is normal in size and systolic function. The left ventricular ejection fraction is visually estimated to be 50-55%. 3. The right ventricle is mildly dilated with preserved systolic function. 4. The aortic valve is trileaflet and heavily calcified. There is moderate aortic stenosis with a valve area of 1.1 cm2. There is moderate aortic regurgitation. 11/04/2023: Polysomnogram Periodic Limb Movements The patient had 87 isolated limb movements with an index of 14.1. The patient had 215 periodic limb movements with an index of 34.9, which is elevated (normal <15). Patient had a total of 302 limb movements with a total limb movement index of 49.0. Assessment and plan: (1) Nocturnal hypoxemia: The patient had an overall AHI of 2.1 with desaturation down to 77%. This is not consistent with sleep-disordered breathing. The patient had persistent hypoxemia in the absence of respiratory events. Supplemental oxygen was started at 1 lpm of O2 and titrated to 3.5 lpm of O2. The patient oxygen saturation was unable to remain above 90% on the final oxygen settings. I recommend that the patient use 4 lpm of supplemental oxygen with sleep. I recommend that she have a nocturnal oximetry done 2 weeks after implementing the recommended oxygen settings to ensure that her oxygen saturation remains above 90%. (2) PLMD (periodic limb movement disorder): The patient had a significant number of limb movements during the study with the majority being periodic in nature. Approximately 25% of the periodic limb movements caused arousals during sleep. The patient's sleep history does not suggest Restless Leg Syndrome. I recommend that the patient have a serum ferritin drawn for evaluation of iron deficiency anemia. If the patient has a serum ferritin less than 75 ng/mL, I recommend starting a daily iron supplement and a Vitamin C supplement for better absorption. If the serum ferritin is greater than 75 ng/mL, I recommend starting a dopamine agonist and titrating the dose until symptoms resolve. There are nonpharmacological methods to treat limb movements including daily exercise, stretching calf muscles before bed, avoiding excessive amounts of caffeine and alcohol, vitamin B supplementation, magnesium lotion massaged into legs before bed, and use of a weighted blanket. I will order ferritin blood test. 10/25/2023: Overnight oximetry on 6 L nasal cannula. The family was present for this test and confirmed the patient was on 6 L, and that she wore the 6 L all night. Recording duration 9 hours and 57 minutes. Basal saturation 94.6%. High saturation 99%. Low saturation 82%. Time with saturation less than or equal to 88% was 2 minutes and 26 seconds. Oxygen desaturation index was 7. I will continue 6 L nasal cannula at night. 07/06/2023 (results received from DME on 08/25/23):? Overnight oximetry on 5 L nasal cannula.? Recording duration 9 hours and 35 minutes.? Basal saturation 86.6%.? High saturation 98%.? Low saturation 65%.? Time with saturation less than or equal to 88% was 4 hours and 28 minutes.? Oxygen desaturation index is 20. unsure if patient was wearing oxygen and at what level, repeat ordered on 5 L 05/13/2023: Home O2 assessment:? Rest room air saturation 86%.? Rest nasal cannula 1 L saturation 88%.? Rest nasal cannula 2 L saturation 90%.? Exercise nasal cannula 2 L saturation 88%.? Exercise nasal cannula 3 L saturation 90%. ?Requires 2 L with rest and 3 with activity 03/12/30 EXAMINATION: XR chest 1V portable ??INDICATION: Pleural effusions. ??COMPARISON: Chest single view 04/08/2023, chest CT 03/30/2023 ??FINDINGS: There is a diffuse interstitial pattern in the lungs. There are airspace opacities in right mid and lower lung zones and left lower lung zone. There are small pleural effusions. No pneumothorax. Cardiomegaly is noted. ??IMPRESSION: ??1. Stable diffuse lung disease, consistent with pulmonary edema versus pneumonia. ??2. Stable small pleural effusions. ??3. Cardiomegaly. ?03/23/23: EXAMINATION: CTA chest PE protocol ??DATE: 03/23/2023 14:04 ??INDICATION: SOB ??COMPARISON: 07/20/2022 ??FINDINGS: The pulmonary arteries are well-opacified. No pulmonary embolism is identified. There are moderate-sized right and small left pleural effusions. There is complete left upper lobe collapse due to mucous plugging. There is also complete atelectasis of the right middle lobe. There is intralobular septal thickening with groundglass opacity with a right lung predominance. There is dependent atelectasis of the left lower lobe. There is a right breast implant. There is mild bilateral hilar and mediastinal lymphadenopathy, likely reactive. No pneumothorax is identified. Punctate calcifications in an otherwise normal spleen likely represent healed granulomatous disease. Changes of cholecystectomy are noted. There is moderate thoracic spondylosis. A chronic T8 compression fracture is noted. ??IMPRESSION: ??1. No pulmonary embolus. ??2. Left upper lobe collapse related to mucous plugging ??3. Complete atelectasis of the right middle lobe. ??4. Moderate size right and small left pleural effusions. ??5. Findings consistent with asymmetric edema of the right upper lobe. ?03/30/[address] Mild pulmonary edema. ??2. Mild atelectasis in the lungs with interval improvement. ??3. Moderate emphysema. ??4. Small pleural effusions. ?03/22/23 Echo Summary ??? 1. Complete two-dimensional, color flow and Doppler transthoracic ??echocardiogram is performed. ??? 2. Severe pulmonary artery enlargement. ??? 3. Left ventricular chamber dimension is normal. ??? 4. Left ventricular systolic function is normal, estimated at 60-65%. ??? 5. There is mildly increased left ventricular wall thickness. ??? 6. The left ventricular diastolic function is grade II diastolic ??dysfunction. ??? 7. The basal inferior wall is akinetic. ??? 8. Left atrial chamber dimension is moderately enlarged. ??? 9. Right atrial chamber dimension is mildly enlarged. ??? 10. Right ventricular chamber dimension is mildly enlarged. ??? 11. There is moderate aortic valve stenosis with a peak velocity of 224 ??cm/s, mean gradient of 11 mmHg, and aortic valve area of 1.5 cm2. ??? 12. There is moderate aortic valve regurgitation. ??? 13. There is moderate aortic valve calcification. ?? 14. The mitral valve annulus is mildly calcified. ??? 15. There is moderate mitral valve regurgitation. ??? 16. There is mild tricuspid valve regurgitation. ??? 17. Mild pulmonary hypertension, estimated pulmonary arterial systolic ??pressure is 43 mmHg. ??? 18. There is mild pulmonic regurgitation. ??Right Ventricle ??? Right ventricular chamber dimension is mildly enlarged. ??? Right ventricular systolic function is normal. ??Right Atria ??? Right atrial chamber dimension is mildly enlarged. ?? * 03/17/23 CXR compared to 01/24 CXR with intervall progression of bilateral airspace disease which may represent edema and/or pneumonia. ??document embedded image ??* 01/26/23 - echo: EF 65-70%, mildly increased LV wall thickness, LV diastolic function indeterminate, mild aortic valve stenosis with valve area 1.7 cm2, , mild-mod aortic and tricuspid valve regurgitation, mild pulmHTN RVSP 44mmHg. ??* 07/20/[address] - Stable pulmonary nodules, likely benign. Moderate emphysema. ??* 12/16/21 Home O2 Eval - need for 2L O2 with activity, none at rest. ??* 01/26/22: Overnight oximetry - 324 min spent below 88% saturation. ? ?07/17/2021 PFTs ?The test was performed and results interpreted in accordance with the 2019 and 2005 ATS/ERS Task Force guidelines respectively using the Global Lung Function Initiative-2012 reference equations. Patient demonstrated good effort and cooperation. Reproducibility criteria were met. The quality of the spirometry maneuver was Grade A.? Of note the patient had persistent coughing throughout the test. ?Findings: ?Spirometry:? There is decreased maximal expiratory airflow at all lung volumes with a concave expiratory flow tracing.? The contour the inspiratory flow tracing is normal.? The FVC is 2.13 L, 81% predicted.? The FEV1 is 1.25 L, 62% predicted.? The FEV1:? FVC ratio is 59%. ?Plethysmography:? The total lung capacity is 5.70 L, 112% predicted.? The functional residual capacity is 4.32 L, 148% predicted.? The residual volume is 3.04 L, 130% predicted.? ?Diffusing capacity:? The diffusing capacity unadjusted for hemoglobin and carboxyhemoglobin is 8.0, 40% predicted.? The diffusing capacity adjusted for alveolar volume is 2.26, 54% predicted. ?Impression: There is a moderate obstructive abnormality. Hyperinflation is present is demonstrated by the increase in functional residual capacity and is consistent with an obstructive abnormality. The diffusing capacity unadjusted for hemoglobin is moderately decreased and normalizes when adjusted for alveolar volume. ?There are no prior studies for comparison ? ??* 05/25/22 : Overnight oximetry on 2.5L O2 - 13min spent below 88% but looks likely artifact. She continued 2.5L. ??* 07/26/20 - Chest CT:? mild to moderate emphysema. 6 mm right middle lobe nodule along a band of linear discoid atelectasis/scarring. ??* Alpha 1 MM normal. Review of Systems Review of Systems: Eating adeuqalty, slept better not on CPAP last night, continued to use high flow O2 All systems reviewed & are unremarkable except as noted in HPI and below Constitutional: Constitutional: Reports no additional constitutional complaints Eyes: Eyes: Reports no additional eye complaints ENT: Reports system reviewed and no additional complaints, except as documented Cardiovascular: Cardiovascular: Reports no additional cardiovascular complaints Respiratory: Respiratory: Reports no additional respiratory complaints Gastrointestinal: Gastrointestinal: Reports no additional gastrointestinal complaints Musculoskeletal: Musculoskeletal: Reports no additional musculoskeletal complaints Neurologic: Reports system reviewed and no additional complaints, except as documented Psychiatric: Psychiatric: Reports no additional psychiatric complaints Endocrine: Endocrine: Reports no additional endocrine complaints Hematologic/Lymphatic: Hematologic/Lymphatic: Reports no additional hematologic/lymphatic complaints Allergic/Immunologic: Allergic/Immunologic: Reports no additional allergic/immunologic complaints Exam Const: General: cooperative and comfortable Orientation/consciousness: oriented to person, oriented to place and oriented to time HENMT: Head: normal to inspection Ears: hearing grossly normal bilaterally Eyes: General: appearance normal, both eyes and all related structures Neck: Neck: normal visual inspection Chest: Chest palpation & inspection: normal inspection of the chest Resp: Effort & Inspection: normal respiratory effort and able to speak in complete sentences Auscultation: crackles, no rales, no rhonchi, no wheezes and lung sounds not diminished Cardio: Jugular venous distension: no JVD GI: Inspection: normal to inspection Skin: General skin exam: normal color Neuro: General: oriented to person, oriented to place and oriented to time Extrem: General: normal to inspection and no edema Psych: Appearance: grossly normal Objective Data Vital Signs Vital Signs: Vital Signs - 24 hr 03/19/24 13:07 03/19/24 13:28 03/19/24 13:28 Temperature 36.7 C Pulse Rate 101 H 90 Respiratory Rate 24 H 20 Blood Pressure 132/66 Pulse Oximetry 96 96 Oxygen Delivery High Flow Nasal Cannula Oxygen Flow Rate 10 Fraction of Inspired Oxygen 03/19/24 13:38 03/19/24 14:00 03/19/24 15:39 Temperature 36.9 C Pulse Rate 99 89 114 H Respiratory Rate 20 18 Blood Pressure 123/63 Pulse Oximetry 90 Oxygen Delivery Oxygen Flow Rate Fraction of Inspired Oxygen 03/19/24 16:00 03/19/24 16:00 03/19/24 16:30 Temperature Pulse Rate 102 H Respiratory Rate Blood Pressure Pulse Oximetry 92 92 Oxygen Delivery High Flow Nasal Cannula High Flow Nasal Cannula Oxygen Flow Rate 10 10 Fraction of Inspired Oxygen 03/19/24 18:00 03/19/24 19:58 03/19/24 20:00 Temperature 36.8 C Pulse Rate 95 95 88 Respiratory Rate 18 22 H Blood Pressure 133/79 Pulse Oximetry 94 94 Oxygen Delivery High Flow Nasal Cannula Oxygen Flow Rate 10 Fraction of Inspired Oxygen 90 03/19/24 20:00 03/19/24 20:04 03/19/24 20:04 Temperature Pulse Rate 88 100 Respiratory Rate 22 H Blood Pressure Pulse Oximetry 94 Oxygen Delivery High Flow Nasal Cannula Oxygen Flow Rate 10 Fraction of Inspired Oxygen 03/19/24 20:19 03/19/24 22:00 03/19/24 23:55 Temperature 37.0 C Pulse Rate 88 84 87 Respiratory Rate 22 H 18 Blood Pressure 116/54 L Pulse Oximetry 91 Oxygen Delivery Oxygen Flow Rate Fraction of Inspired Oxygen 03/20/24 00:00 03/20/24 00:00 03/20/24 01:40 Temperature Pulse Rate 87 87 84 Respiratory Rate 18 18 Blood Pressure Pulse Oximetry 91 Oxygen Delivery High Flow Nasal Cannula Oxygen Flow Rate 10 Fraction of Inspired Oxygen 90 03/20/24 01:46 03/20/24 02:00 03/20/24 07:10 Temperature Pulse Rate 87 85 87 Respiratory Rate 18 18 Blood Pressure Pulse Oximetry 99 Oxygen Delivery High Flow Nasal Cannula Oxygen Flow Rate 10 Fraction of Inspired Oxygen 03/20/24 07:10 03/20/24 07:20 03/20/24 07:49 Temperature 36.6 C Pulse Rate 87 86 92 Respiratory Rate 18 18 14 Blood Pressure 113/64 Pulse Oximetry 96 Oxygen Delivery Oxygen Flow Rate Fraction of Inspired Oxygen 03/20/24 08:00 03/20/24 10:00 03/20/24 11:34 Temperature 36.4 C L Pulse Rate 92 86 95 Respiratory Rate 18 Blood Pressure 115/55 L Pulse Oximetry 92 Oxygen Delivery Oxygen Flow Rate Fraction of Inspired Oxygen Intake/Output Intake/Output: Intake & Output 03/17/24 03/18/24 03/19/24 03/20/24 23:59 23:59 23:59 23:59 Intake Total 1070 1820 840 50 Output Total 5346 299 0157 Balance -130 1020 -710 50 Meds/Results Medications: Active Medications Generic Name Dose Route Start Last Admin Trade Name Freq PRN Reason Stop Dose Admin Acetaminophen 650 mg 03/16/24 17:50 03/19/24 13:01 Acetaminophen 325 Mg Tablet PO 650 mg Q4H PRN Administration Mild Pain (1-5) Or Fever Hydrocodone Bitart/Acetaminophen 1 tab 03/16/24 17:49 Hydrocodone/Acetaminophen (*Crx) 5-325 Mg Tablet PO Q6H PRN Pain Rated 6 or Greater Albuterol/Ipratropium 3 ml 03/12/24 20:15 03/15/24 12:25 Ipratropium 0.5 Mg/Albuterol Sulfate 2.5 Mg Ampul.Neb 3 Ml INHALATION 3 ml Q4H PRN Administration SHORTNESS OF BREATH Alprazolam 1 mg 03/13/24 21:00 03/19/24 21:04 Alprazolam (*Crx) 0.5 Mg Tablet PO 1 mg QHS HEIDE Administration Apixaban 5 mg 03/13/24 21:00 03/16/24 20:33 Apixaban 5 Mg Tablet PO 5 mg Q12HR HEIDE Administration Atorvastatin Calcium 10 mg 03/13/24 21:00 03/19/24 21:04 Atorvastatin 10 Mg Tablet PO 10 mg HS HEIDE Administration Bisacodyl 5 mg 03/12/24 20:10 03/17/24 09:01 Bisacodyl 5 Mg Tablet Ec PO 5 mg DAILY PRN Administration Constipation Bumetanide 2 mg 03/16/24 09:00 03/20/24 09:50 Bumetanide Inj 1 Mg/4 Ml Vial IV PUSH 2 mg BID HEIDE Administration Clopidogrel Bisulfate 75 mg 03/13/24 09:00 03/20/24 11:16 Clopidogrel Bisulfate 75 Mg Tablet PO Not Given DAILY HEIDE Colestipol HCl 2 gm 03/13/24 09:00 03/20/24 09:38 Colestipol Hcl 1 Gm Tablet PO 2 gm DAILY HEIDE Administration Diltiazem HCl 360 mg 03/13/24 09:00 03/20/24 09:40 Diltiazem Hcl Cd 180 Mg Cap.24hr PO 360 mg DAILY HEIDE Administration Empagliflozin 10 mg 03/20/24 09:00 03/20/24 09:39 Empagliflozin 10 Mg Tablet PO 10 mg DAILY HEIDE Administration Ferrous Sulfate 325 mg 03/16/24 09:00 03/20/24 09:40 Ferrous Sulfate [address] PO 325 mg DAILY HEIDE Administration Guaifenesin 1,200 mg 03/19/24 11:10 03/20/24 09:39 Guaifenesin 12 Hr 600 Mg Tabcr PO 1,200 mg Q12HR HEIDE Administration Piperacillin/Tazobactam/Dextrose 3.375 gm in 50 mls @ 100 mls/hr 03/13/24 08:00 03/20/24 10:06 Zosyn 3.375 Gm/Ns 50 Ml IVPB Infused Q6H HEIDE Infusion Ipratropium [place] 0.5 mg 03/12/24 20:00 03/20/24 07:10 Ipratropium Br 0.02% Inh Soln 0.5 Mg/2.5 Ml Vial INHALATION 0.5 mg Q6HRT HEIDE Administration Levalbuterol HCl 0.63 mg 03/12/24 20:00 03/20/24 07:10 Levalbuterol Neb 1.25 Mg/3 Ml INHALATION 0.63 mg Q6HRT HEIDE Administration Lorazepam 0.5 mg 03/15/24 10:41 03/16/24 12:01 Lorazepam Inj (*Crx) 2 Mg/Ml Vial IV PUSH 0.5 mg Q6H PRN Administration Anxiety Sertraline HCl 200 mg 03/13/24 09:00 03/20/24 09:39 Sertraline Hcl 50 Mg Tablet PO 200 mg DAILY HEIDE Administration Sodium Chloride 1 spray 03/16/24 17:48 Saline 0.65% Te[place] Soln 44 Ml Btl NASAL Q6HR PRN Congestion Sodium Chloride 6 ml 03/19/24 05:00 03/19/24 04:54 Sodium Chlor 3% 15 Ml Neb (Respiratory Therapy) INHALATION 03/21/24 05:01 6 ml DAILY@0500 HEIDE Administration Sodium Chloride 6 ml 03/20/24 05:00 Sodium Chlor 3% 15 Ml Neb (Respiratory Therapy) INHALATION 03/22/24 05:01 DAILY@0500 [facility] Radiology Results: ITS Impressions Chest CTA 03/12/24 17:42 IMPRESSION: 1. No pulmonary embolism. 2. Bilateral large pleural effusion with adjacent atelectasis. 3. Mediastinal and bilateral hilar lymphadenopathy. 4. Nodule is seen in the right middle lobe and upper lobe. 6 months follow-up CT is advised. 5. Interstitial thickening in the apical areas which may indicate edema versus pneumonitis. Renal Ultrasound 03/15/24 20:32 IMPRESSION: No definite abnormal. Small simple cyst in the right kidney lower pole. Thoracentesis Ultrasound 03/19/24 12:48 IMPRESSION: 1. Successful ultrasound-guided thoracentesis yielding 300 mL of kenneth-colored fluid. Chest X-Ray 03/20/24 09:30 Impression: 1: Persistent diffuse bilateral interstitial infiltrates, most likely edema although chronic interstitial lung disease cannot be excluded. Labs Labs: Laboratory Results - last 24 hr 03/19/24 03/20/24 03/20/24 12:20 05:00 05:11 WBC 7.8 RBC 3.38 L Hgb 9.3 L Hct 31.7 L MCV 93.8 MCH 27.5 MCHC 29.3 L RDW 15.6 H Plt Count 218 MPV 9.1 Immature Gran % (Auto) 1.2 H Neut % (Auto) 81.3 H Lymph % (Auto) 11.5 L Maries % (Auto) 5.9 Eos % (Auto) 0.0 Baso % (Auto) 0.1 L Lymph # (Auto) 0.90 Maries # (Auto) 0.5 Eos # (Auto) 0.0 Baso # (Auto) 0.0 Abs Immat Gran (auto) 0.09 H Absolute Neuts (auto) 6.4 Absolute Nucleated RBC 0.000 Nucleated RBC % 0.0 Platelet Estimate Adequate Schistocytes None seen Sodium 137 Potassium 4.0 Chloride 100 Carbon Dioxide 35 H Anion Gap 2 L BUN 20 H Creatinine 1.00 Estim Creat Clear Calc 36 Estimated GFR 53 L Glucose 160 H POC Capillary Glucose Calcium 9.0 Magnesium 2.2 Total Bilirubin 0.7 AST 23 ALT 13 Alkaline Phosphatase 76 Total Protein 7.0 Albumin 3.9 Pleural Fluid Source Pleural fluid Pleural Color Other Pleural Appearance Hazy Pleural pH > 7.500 H Pleural RBC 7000 Pleural Nuc Cells 2109 H Pleural Neutrophils 17 Pleural Lymphocytes 32 Pleural Macrophages 38 Pleural Mesothelial 13 03/20/24 03/20/24 07:52 11:36 WBC RBC Hgb Hct MCV MCH MCHC RDW Plt Count MPV Immature Gran % (Auto) Neut % (Auto) Lymph % (Auto) Maries % (Auto) Eos % (Auto) Baso % (Auto) Lymph # (Auto) Maries # (Auto) Eos # (Auto) Baso # (Auto) Abs Immat Gran (auto) Absolute Neuts (auto) Absolute Nucleated RBC Nucleated RBC % Platelet Estimate Schistocytes Sodium Potassium Chloride Carbon Dioxide Anion Gap BUN Creatinine Estim Creat Clear Calc Estimated GFR Glucose POC Capillary Glucose 143 H 125 H Calcium Magnesium Total Bilirubin AST ALT Alkaline Phosphatase Total Protein Albumin Pleural Fluid Source Pleural Color Pleural Appearance Pleural pH Pleural RBC Pleural Nuc Cells Pleural Neutrophils Pleural Lymphocytes Pleural Macrophages Pleural Mesothelial
[2024-03-20 12:49] LABS: NIL 0.01 IU/mL; Quantiferon TB Plus, 1T NEGATIVE (NEGATIVE)
--- NOTE | 2024-03-20 16:35 | PM.IMPN ---
Progress Note: A&P Assessment and Plan (1) Acute on chronic respiratory failure: Qualifiers: Respiratory failure complication: hypoxia Qualified Code(s): J96.21 - Acute and chronic respiratory failure with hypoxia Code(s): J96.20 - Acute and chronic respiratory failure, unspecified whether with hypoxia or hypercapnia Status: Acute Assessment and Plan: Patient here for SOB. She wears 4L O2 during the day and 6L with sleeping. She does not have KAREEM. She is very inactive at home due to DELGADO. WBC normal. DDimer 2.67. Troponin negative x1. BNP 940. COVID, influenza and RSV PCR negative. ABG 7.47/41/125 on 15L NRBM CXR showing mild pulmonary edema and small pleural effusion. CTA Chest negative for PE but with bilateral large pleural effusion with atelectasis. Mediastinal and bilateral hilar lymphadenopathy noted. RML and RUL pulmonary nodule noted. Apical areas with edema vs pneumonitis. 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 Treated with Vorconazole for 14 days. She was given Lasix 80mg IV and Duoneb in the ED Suspect CHF exacerbation and related to pleural effusions. Can not exclude PNA ore recurrent aspergillus. She was started on IV diuretics and tolerating this well. Echo as below that does show right to left shunt. Hypoxia worsened. Related to worsening shunt? Pleural effusions? CHF? Aspergillus recurrence and plugs? Pulm following and appreciate their input. Patient now able to expectorate plugs with current treatment and with hemoptysis. Able to have Rt thoracentesis 03/19. Able to be weaned to 4L today. Continue bronchodilators. Steroids stopped,. Overnight oximetry on 6L. Possibly home tomorrow. (2) CHF (congestive heart failure): Code(s): I50.9 - Heart failure, unspecified Status: Acute Assessment and Plan: Echo showing right to left shunt by positive agitated saline study, normal LV size and systolic fxn with EF 50-55%, dilated RV with preserved systolic function and moderate , moderate AI and mild MR. In Mar 2023, EF 60-65%, Grade II diastolic dysfunction, akinetic basal inferior wall and moderate , moderate MR and mild pulmonary HTN. Moderate has worsened with ESTRELLITA 1.5 -> 1.1cm2 now. Imaging as above. BNP 2940 Unclear how extensive the shunt is or if the moderate is causing issues. UOP not accurate. change to oral Lasix. Continue empagliflozin Monitor UOP, renal fxn and resp status. (3) Chronic kidney disease, stage 3: Code(s): N18.30 - Chronic kidney disease, stage 3 unspecified Status: Chronic Assessment and Plan: BUN and Cr normal but CrCl low in the 30's chronically. Cr was up to 1.2 probably related to diuresis and/or contrast 03/12. Consider also related to hypoxia. Renal US showing no significant abnormalities. Urine studies are prerenal. Cr better and at 1 today and stable. Continue to monitor closely on diuretics. Follow (4) Pleural effusion: Code(s): J90 - Pleural effusion, not elsewhere classified Status: Acute Assessment and Plan: Imaging as above. She has bilateral thoracentesis ordered but on hold waiting for Plavix to wash out. Probably related to CHF but consider malignancy given the lung nodules noted or fungal. Eliquis stopped and started on Lovenox over the weekend. Off anticoagulation for Rt thoracentesis today with removal of 300mL of kenneth colored fluid. pH >7.5 with 7K RBC and 2k WBC (17% PMNs, 32% lynph, 38% macrophages). Gram stain showing many WBC but no MO. Spoke with pulmonary who did not feel patient needed left thoracentesis since able to wean to 4L now so this was cancelled. Resume Eliquis (5) Atrial fibrillation: Code(s): I48.91 - Unspecified atrial fibrillation Status: Chronic Assessment and Plan: Heart rate midly elevated 90-110 range. TSH normal Eliquis on hold for thoracentesis She remains on Diltiazem. Monitor on tele. Resume Eliquis. (6) Pneumonia: Qualifiers: Laterality: bilateral Lung location: unspecified part of lung Pneumonia type: due to unspecified organism Qualified Code(s): J18.9 - Pneumonia, unspecified organism Code(s): J18.9 - Pneumonia, unspecified organism Status: Acute Assessment and Plan: Imaging as above. WBC normal. BCx NGTD. MRSA nasal swab negative. Started on Zosyn and Doxy. Doxy x 5 days. Change to Augmentin tomorrow to complete a 14 day course. (7) Pulmonary nodules: Code(s): R91.8 - Other nonspecific abnormal finding of lung field Status: Acute Assessment and Plan: CT showing RML 7mm nodule that is larger than prior imaging and a right apical nodule at 1cm. Also with mediastinal and bilateral hilar adenopathy. As above. Will need to be followed as outpatient. Plan Anemia - Chronic for the past year with Hgb 9-10 range mostly. Hgb stable and within her baseline. Iron studies showing normal iron and TIBC but low iron sat at 8%. Ferritin 45. B12 319 and MMA ordered. Folate normal. Added iron supplements DVT prophylaxis - Eliquis Code Status - DNR Subjective Date/time seen: 03/20/24 16:35 Interval history: 78yo female with chronic respiratory failure, CKD 3, HTN and pAFib here for shortness of breath. Walking in halls. Feels much better. Cough improved. No CP or SOB. Exam Narrative: AF 97.4 123/58 93 16 95% 4L Gen - NARD Chest - scattered rhonchi but overall improved air exchange. CV - irregularly irregular. Tele showing AFib with controlled rate Abd - Soft, NT/ND, Positive BS Ext - No pedal edema Psych - Nml mood and affect Skin - Warm and dry Objective Data Vital Signs Vital Signs: Vital Signs - 24 hr 03/19/24 18:00 03/19/24 19:58 03/19/24 20:00 Temperature 98.3 F Pulse Rate 95 95 88 Respiratory Rate 18 22 H Blood Pressure 133/79 Pulse Oximetry 94 94 Oxygen Delivery High Flow Nasal Cannula Oxygen Flow Rate 10 Fraction of Inspired Oxygen 90 03/19/24 20:00 03/19/24 20:04 03/19/24 20:04 Temperature Pulse Rate 88 100 Respiratory Rate 22 H Blood Pressure Pulse Oximetry 94 Oxygen Delivery High Flow Nasal Cannula Oxygen Flow Rate 10 Fraction of Inspired Oxygen 03/19/24 20:19 03/19/24 22:00 03/19/24 23:55 Temperature 98.6 F Pulse Rate 88 84 87 Respiratory Rate 22 H 18 Blood Pressure 116/54 L Pulse Oximetry 91 Oxygen Delivery Oxygen Flow Rate Fraction of Inspired Oxygen 03/20/24 00:00 03/20/24 00:00 03/20/24 01:40 Temperature Pulse Rate 87 87 84 Respiratory Rate 18 18 Blood Pressure Pulse Oximetry 91 Oxygen Delivery High Flow Nasal Cannula Oxygen Flow Rate 10 Fraction of Inspired Oxygen 90 03/20/24 01:46 03/20/24 02:00 03/20/24 07:10 Temperature Pulse Rate 87 85 87 Respiratory Rate 18 18 Blood Pressure Pulse Oximetry 99 Oxygen Delivery High Flow Nasal Cannula Oxygen Flow Rate 10 Fraction of Inspired Oxygen 03/20/24 07:10 03/20/24 07:20 03/20/24 07:49 Temperature 97.9 F Pulse Rate 87 86 92 Respiratory Rate 18 18 14 Blood Pressure 113/64 Pulse Oximetry 96 Oxygen Delivery Oxygen Flow Rate Fraction of Inspired Oxygen 03/20/24 08:00 03/20/24 10:00 03/20/24 11:34 Temperature 97.5 F L Pulse Rate 92 86 95 Respiratory Rate 18 Blood Pressure 115/55 L Pulse Oximetry 92 Oxygen Delivery Oxygen Flow Rate Fraction of Inspired Oxygen 03/20/24 12:00 03/20/24 13:15 03/20/24 13:25 Temperature Pulse Rate 88 93 92 Respiratory Rate 18 18 Blood Pressure Pulse Oximetry Oxygen Delivery Oxygen Flow Rate Fraction of Inspired Oxygen 03/20/24 15:30 Temperature 97.4 F L Pulse Rate 93 Respiratory Rate 16 Blood Pressure 123/58 L Pulse Oximetry 95 Oxygen Delivery Oxygen Flow Rate Fraction of Inspired Oxygen Intake/Output Intake/Output: Intake & Output 03/17/24 03/18/24 03/19/24 03/20/24 23:59 23:59 23:59 23:59 Intake Total 1070 1820 840 340 Output Total 6957 291 4642 Balance -130 1020 -710 340 Meds/Results Medications: Active Medications Generic Name Dose Route Start Last Admin Trade Name Freq PRN Reason Stop Dose Admin Acetaminophen 650 mg 03/16/24 17:50 03/19/24 13:01 Acetaminophen 325 Mg Tablet PO 650 mg Q4H PRN Administration Mild Pain (1-5) Or Fever Hydrocodone Bitart/Acetaminophen 1 tab 03/16/24 17:49 Hydrocodone/Acetaminophen (*Crx) 5-325 Mg Tablet PO Q6H PRN Pain Rated 6 or Greater Albuterol/Ipratropium 3 ml 03/12/24 20:15 03/15/24 12:25 Ipratropium 0.5 Mg/Albuterol Sulfate 2.5 Mg Ampul.Neb 3 Ml INHALATION 3 ml Q4H PRN Administration SHORTNESS OF BREATH Alprazolam 1 mg 03/13/24 21:00 03/19/24 21:04 Alprazolam (*Crx) 0.5 Mg Tablet PO 1 mg QHS HEIDE Administration Apixaban 5 mg 03/13/24 21:00 03/16/24 20:33 Apixaban 5 Mg Tablet PO 5 mg Q12HR HEIDE Administration Atorvastatin Calcium 10 mg 03/13/24 21:00 03/19/24 21:04 Atorvastatin 10 Mg Tablet PO 10 mg HS HEIDE Administration Bisacodyl 5 mg 03/12/24 20:10 03/17/24 09:01 Bisacodyl 5 Mg Tablet Ec PO 5 mg DAILY PRN Administration Constipation Bumetanide 2 mg 03/16/24 09:00 03/20/24 09:50 Bumetanide Inj 1 Mg/4 Ml Vial IV PUSH 2 mg BID HEIDE Administration Clopidogrel Bisulfate 75 mg 03/13/24 09:00 03/20/24 11:16 Clopidogrel Bisulfate 75 Mg Tablet PO Not Given DAILY HEIDE Colestipol HCl 2 gm 03/13/24 09:00 03/20/24 09:38 Colestipol Hcl 1 Gm Tablet PO 2 gm DAILY HEIDE Administration Diltiazem HCl 360 mg 03/13/24 09:00 03/20/24 09:40 Diltiazem Hcl Cd 180 Mg Cap.24hr PO 360 mg DAILY HEIDE Administration Empagliflozin 10 mg 03/20/24 09:00 03/20/24 09:39 Empagliflozin 10 Mg Tablet PO 10 mg DAILY HEIDE Administration Ferrous Sulfate 325 mg 03/16/24 09:00 03/20/24 09:40 Ferrous Sulfate [address] PO 325 mg DAILY HEIDE Administration Guaifenesin 1,200 mg 03/19/24 11:10 03/20/24 09:39 Guaifenesin 12 Hr 600 Mg Tabcr PO 1,200 mg Q12HR HEIDE Administration Piperacillin/Tazobactam/Dextrose 3.375 gm in 50 mls @ 100 mls/hr 03/13/24 08:00 03/20/24 15:12 Zosyn 3.375 Gm/Ns 50 Ml IVPB Infused Q6H HEIDE Infusion Ipratropium Gonvick 0.5 mg 03/12/24 20:00 03/20/24 13:15 Ipratropium Br 0.02% Inh Soln 0.5 Mg/2.5 Ml Vial INHALATION 0.5 mg Q6HRT HEIDE Administration Levalbuterol HCl 0.63 mg 03/12/24 20:00 03/20/24 13:15 Levalbuterol Neb 1.25 Mg/3 Ml INHALATION 0.63 mg Q6HRT HEIDE Administration Lorazepam 0.5 mg 03/15/24 10:41 03/16/24 12:01 Lorazepam Inj (*Crx) 2 Mg/Ml Vial IV PUSH 0.5 mg Q6H PRN Administration Anxiety Sertraline HCl 200 mg 03/13/24 09:00 03/20/24 09:39 Sertraline Hcl 50 Mg Tablet PO 200 mg DAILY HEIDE Administration Sodium Chloride 1 spray 03/16/24 17:48 Saline 0.65% Teja Soln 44 Ml Btl NASAL Q6HR PRN Congestion Sodium Chloride 6 ml 03/19/24 05:00 03/19/24 04:54 Sodium Chlor 3% 15 Ml Neb (Respiratory Therapy) INHALATION 03/21/24 05:01 6 ml DAILY@0500 HEIDE Administration Sodium Chloride 6 ml 03/20/24 05:00 Sodium Chlor 3% 15 Ml Neb (Respiratory Therapy) INHALATION 03/22/24 05:01 DAILY@0500 [facility] Radiology Results: ITS Impressions Chest CTA 03/12/24 17:42 IMPRESSION: 1. No pulmonary embolism. 2. Bilateral large pleural effusion with adjacent atelectasis. 3. Mediastinal and bilateral hilar lymphadenopathy. 4. Nodule is seen in the right middle lobe and upper lobe. 6 months follow-up CT is advised. 5. Interstitial thickening in the apical areas which may indicate edema versus pneumonitis. Renal Ultrasound 03/15/24 20:32 IMPRESSION: No definite abnormal. Small simple cyst in the right kidney lower pole. Thoracentesis Ultrasound 03/19/24 12:48 IMPRESSION: 1. Successful ultrasound-guided thoracentesis yielding 300 mL of kenneth-colored fluid. Chest X-Ray 03/20/24 09:30 Impression: 1: Persistent diffuse bilateral interstitial infiltrates, most likely edema although chronic interstitial lung disease cannot be excluded. Labs Labs: Laboratory Results - last 24 hr 03/18/24 03/20/24 03/20/24 04:35 05:00 05:11 WBC 7.8 RBC 3.38 L Hgb 9.3 L Hct 31.7 L MCV 93.8 MCH 27.5 MCHC 29.3 L RDW 15.6 H Plt Count 218 MPV 9.1 Immature Gran % (Auto) 1.2 H Neut % (Auto) 81.3 H Lymph % (Auto) 11.5 L [place] % (Auto) 5.9 Eos % (Auto) 0.0 Baso % (Auto) 0.1 L Lymph # (Auto) 0.90 [place] # (Auto) 0.5 Eos # (Auto) 0.0 Baso # (Auto) 0.0 Abs Immat Gran (auto) 0.09 H Absolute Neuts (auto) 6.4 Absolute Nucleated RBC 0.000 Nucleated RBC % 0.0 Platelet Estimate Adequate Schistocytes None seen Sodium 137 Potassium 4.0 Chloride 100 Carbon Dioxide 35 H Anion Gap 2 L BUN 20 H Creatinine 1.00 Estim Creat Clear Calc 36 Estimated GFR 53 L Glucose 160 H POC Capillary Glucose Calcium 9.0 Magnesium 2.2 Total Bilirubin 0.7 AST 23 ALT 13 Alkaline Phosphatase 76 Total Protein 7.0 Albumin 3.9 TB Test (QFT) Gold Plus Negative TB Test (QFT) Nil 0.01 TB Test Mitogen - Nil 2.16 TB Test Ag - Nil 1 0.00 TB Test Ag - Nil 2 0.00 03/20/24 03/20/24 07:52 11:36 WBC RBC Hgb Hct MCV MCH MCHC RDW Plt Count MPV Immature Gran % (Auto) Neut % (Auto) Lymph % (Auto) [place] % (Auto) Eos % (Auto) Baso % (Auto) Lymph # (Auto) [place] # (Auto) Eos # (Auto) Baso # (Auto) Abs Immat Gran (auto) Absolute Neuts (auto) Absolute Nucleated RBC Nucleated RBC % Platelet Estimate Schistocytes Sodium Potassium Chloride Carbon Dioxide Anion Gap BUN Creatinine Estim Creat Clear Calc Estimated GFR Glucose POC Capillary Glucose 143 H 125 H Calcium Magnesium Total Bilirubin AST ALT Alkaline Phosphatase Total Protein Albumin TB Test (QFT) Gold Plus TB Test (QFT) Nil TB Test Mitogen - Nil TB Test Ag - Nil 1 TB Test Ag - Nil 2
[2024-03-20] MEDS: APIXABAN 5 MG TABLET PO (21:16)
[2024-03-20] MEDS: ATORVASTATIN 10 MG TABLET PO (21:16)
[2024-03-20] MEDS: ALPRAZolam (*CRX) 0.5 MG TABLET 1 MG PO (21:16)
[2024-03-21] VITALS (21 sets, daily range): BP systolic 97–136; BP diastolic 41–68; PULSE 68–116; RESP 16–20; TEMP 36.3–37; O2SAT 92–100
[2024-03-21] MEDS: LEVALBUTEROL NEB 1.25 MG/3 ML 0.63 MG INHALATION ×2 (02:01→07:16)
[2024-03-21] MEDS: IPRATROPIUM BR 0.02% INH SOLN 0.5 MG/2.5 ML VIAL INHALATION ×2 (02:01→07:16)
[2024-03-21] MEDS: SODIUM CHLOR 3% 15 ML NEB (RESPIRATORY THERAPY) 6 ML INHALATION (05:20)
[2024-03-21 05:27] LABS: Basophils Percent Auto 0.3 % (0.2-1.2); Eosinophils Absolute Auto 0.3 K/mm3 (0-0.3); Hematocrit 32.5 % (37.0-47.0); Hemoglobin 9.9 g/dL (12.0-15.0); Immature Granulocyte Absolute 0.11 K/mm3 (0.00-0.031); Lymphocytes Absolute Auto 2.08 K/mm3 (0.9-3.2); Lymphocytes Percent Auto 18.4 % (18.3-44.2); Mean Corpuscular HGB Conc 30.5 g/dl (32-36); Mean Corpuscular Hemoglobin 28.4 pg (26-34); Mean Corpuscular Volume 93.1 fl (80-100); Mean Platelet Volume 9.1 fl (7.4-10.4); Monocytes Absolute Auto 0.7 K/mm3 (0.1-0.6); Monocytes Percent Auto 6.1 % (2.6-8.5); Neutrophils Absolute Auto 8.1 K/mm3 (1.3-6.7); Neutrophils Percent Auto 71.2 % (45.5-73.1); Platelet Count Result 229 k/mm3 (150-375); Red Blood Count 3.49 M/mm3 (4.2-5.4); Red Cell Distribution Width 15.9 % (11.5-14.5); White Blood Count 11.3 K/mm3 (4.5-10.0)
[2024-03-21 05:49] LABS: Alanine Aminotransferase 21 U/L (6-35); Alkaline Phosphatase 73 U/L (38-126); Anion Gap 5 mmol/L (4-12); Aspartate Amino Transferase 35 U/L (14-36); Bilirubin,Total 0.7 mg/dL (0.2-1.3); Blood Urea Nitrogen 19 mg/dL (7-17); Calcium 8.9 mg/dL (8.4-10.2); Carbon Dioxide 36 mmol/L (22-30); Chloride 99 mmol/L (98-107); Estimated CRCL calculation 28 ml/min; Estimated Glomerular Filt Rate 39; Glucose 122 mg/dL (65-110); Potassium 3.6 mmol/L (3.4-5.0); Sodium 140 mmol/L (137-145)
--- NOTE | 2024-03-21 06:10 | PCRCNOTE ---
Sputum induction did not produce sputum.
[2024-03-21 07:13] LABS: Methylmalonic Acid 366 nmol/L (85-423)
[2024-03-21] MEDS: dilTIAZem HCL CD 180 MG CAP.24HR 360 MG PO (09:28)
[2024-03-21] MEDS: guaiFENesin 12 HR 600 MG TABCR 1200 MG PO ×2 (09:28→20:29)
[2024-03-21] MEDS: AMOXICILLIN/CLAVULANATE K 875-125 MG TAB 1 TABLET PO ×2 (09:28→20:28)
[2024-03-21] MEDS: COLESTIPOL HCL 1 GM TABLET 2 GM PO (09:28)
[2024-03-21] MEDS: SERTRALINE HCL 50 MG TABLET 200 MG PO (09:28)
[2024-03-21] MEDS: FERROUS SULFATE 325 MG TABLET DR PO (09:29)
[2024-03-21] MEDS: APIXABAN 5 MG TABLET PO ×2 (09:29→20:28)
[2024-03-21] MEDS: CLOPIDOGREL BISULFATE 75 MG TABLET PO (09:29)
[2024-03-21] MEDS: EMPAGLIFLOZIN 10 MG TABLET PO (09:29)
[2024-03-21] MEDS: ACETAMINOPHEN 325 MG TABLET 650 MG PO (09:31)
--- NOTE | 2024-03-21 10:14 | PM.PNPUL ---
Progress Note: A&P Assessment and Plan (1) Acute on chronic respiratory failure: Qualifiers: Respiratory failure complication: hypoxia Qualified Code(s): J96.21 - Acute and chronic respiratory failure with hypoxia Code(s): J96.20 - Acute and chronic respiratory failure, unspecified whether with hypoxia or hypercapnia Status: Acute Assessment and Plan: Patient with chronic hypoxemic respiratory failure on 4 L at rest, 4-5 with activity and 6 L with sleep. currently admitted with worsening acute on chronic hypoxic respiratory failure requiring BiPAP. ABG on admission 7.47/41/125 on a non-rebreather. Etiology of worsening hypoxemic respiratory failure includes fluid overload, pneumonia, COPD exacerbation, bilateral pleural effusions, positive bubble study with [id number] shunt after 4-5 beats without Valsalva and after 2 beats with Valsalva with bubbles appearing to come from the pulmonary vein rather than through the atrial septum. 03/19/24: overall since admission the patient feels the same or a little bit better. she still has shortness of breath, hot feelings, sweats. She is afebrile. White blood cell count is 8.1, creatinine is 0.9. BNP is 1990 ( decreased from 2940 and 2740 on admission). When I enter the room the patient was on Airvo 60 L 91% FiO2 with saturations 95% on her right ear probe and 100% on her right hand finger probe. I changed her to 15 L nasal cannula and her right hand saturation was 95%. I decreased her to 10 L and her right hand saturation was 92-93% with a right ear probe measuring 88% and a left hand saturation measuring 91-92%. Plan: Goal saturation 90-94%. Wean oxygen accordingly. Will continue treatment for fluid overload with Bumex 2 mg IV b.i.d., Pneumonia with Zosyn day 7 and doxycycline day 5 (MRSA negative, COVID, RSV and Influenza negative, sputum for AFB and fungus pending. Respiratory pathogen panel pending). Regarding pleural effusions; chest x-ray demonstrates improved bilateral pleural effusions, the patient is scheduled for a right thoracentesis later today and will send full set of chemistries, microbiology and cytology studies. Will continue treatment for possible COPD exacerbation with prednisone 40 mg p.o. q.day. No wheezes,day 5 today and will discontinue. Continue levalbuterol and ipratropium nebulizers q.6 hours. Will continue Vest treatment, coronary flutter valve and will add guaifenesin 1200 mg p.o. b.i.d. to help with sputum expectoration. Later in the day the patient had a thoracentesis with 300 mL of kenneth fluid removed. G stain was many white blood cells, no organisms seen. PH greater than 7.50, white blood cell count 2109 with a differential neutrophils 17%, lymphocytes 32%, macrophages 38%, mesothelial cells 13%. she says her breathing immediately improved with the thoracentesis. 03/20/24: Patient slept with 10 L nasal cannula S night and said she slept well. She finished physical therapy and was walking in the room and did well. Currently she tells me she is breathing back to her baseline. She still has a cough with hemoptysis but overall is producing less phlegm. She is afebrile. White blood cell count 9.8, creatinine 1.0. When I enter the room she was on 10 L nasal cannula oxygen with saturations 99%. I decreased her to 4 L nasal cannula and after 9 minutes her saturations were 95%. chest x-ray today showed no pleural effusions, diffuse interstitial alveolar infiltrates unchanged. Her weight today is 70.4 in overall she is positive 400 mL since admission. Plan: Patient continues to improve with treatment for Fluid overload with pleural effusion, possible pneumonia and possible COPD exacerbation. Currently she Is on 4 L nasal cannula rest which is her baseline. A perform overnight oximetry on 6 L tonight. Goal saturation 90-94%, wean oxygen accordingly. 03/21/24: Overall the patient states that she slept well on nasal cannula oxygen. She denies fever, chills, rigors phlegm production or hemoptysis. She is afebrile. White blood cell count 11.3, creatinine 1.3, on 4 L nasal cannula saturations are 91%. Lasix has been held. If the patient continues to improve will consider discharge on 03/22/2024 on these pulmonary medications: Augmentin 875-125 at 1 pill b.i.d. x4 days Stiolto Respimat 2.5-2.5 at 1 puff twice a day, Rescue albuterol inhaler q.4 hours p.r.n. shortness of breath and wheezing. Rescue albuterol nebulizer 2.5 mg q.4 hours p.r.n. shortness of breath or wheezing Guaifenesin 600 mg p.o. b.i.d. p.r.n.. Oxygen at rest and with activity per formal home O2 assessment which will performed on day of discharge. Oxygen at night per overnight oximetry to be performed on 03/21/2024. Discussed with Dr. Gross. Will follow with you. (2) Acute exacerbation of chronic obstructive pulmonary disease (COPD): Code(s): J44.1 - Chronic obstructive pulmonary disease with (acute) exacerbation Status: Acute Assessment and Plan: Gold grade 2 group E COPD Patient with 82.5 pack year tobacco use, quit 10/06/2022.? Alpha 1 anti trypsin genotype MM.? 07/17/2021: FEV1 is 1.25 L, 62% predicted, FEV1: FVC ratio 59%, no hyperinflation, DLCO moderately decreased at 40% and remains moderately decreased when adjusted for alveolar volume.? CT scan of the chest on 07/20/2022 shows stable pulmonary nodules with moderate apical predominant centrilobular emphysema.? She has used oxygen with exertion for about 2 years and 01/2023 admission she has been on oxygen around the clock.? Currently using 4 L nasal cannula At rest, 4-5 L with activity and 6 L at night. 01/26/23 - echo: EF 65-70%, mildly increased LV wall thickness, LV diastolic function indeterminate, mild aortic valve stenosis area 1.7, mild-mod aortic and tricuspid valve regurgitation, mild pulm HTN with RVSP 44mmHg. echo 03/22/2023 with moderate aortic stenosis with a valve area of 1.5. Echocardiogram 03/15/2024 with moderate aortic stenosis with a valve area of 1.1, moderate aortic regurgitation. RVSP 50, positive right to left bubble. Recent activity: 01/24/23 to 01/30/23, inpatient [facility]; COPD exacerbation; home for a few days, 02/05/23 to 02/14/23; entered rehab due to debilitation 02/17/23 to 02/19/23; fell and broke hip; inpatient; Ortho consult= non-surgical injury, went to rehab Feb 21, 2023 through 03/07/23 03/17/2023 through 04/12/2023:? Admitted to [facility] with COVID pneumonia and hypoxic respiratory failure requiring continuous BiPAP, high-flow nasal cannula oxygen.? Treated with remdesivir, dexamethasone and baricitinib with slow improvement. ?Mucus plugging with left upper lobe collapse and right middle lobe collapse treated with bronchodilators, dornase, Mucomyst, chest PT. Aspergillus in sputum without focal consolidations or cavities and treated with voriconazole for 14 days for colonization.? Developed acute pulmonary edema in house with re-initiation of noninvasive ventilation responded to diuretics.? Right thoracentesis with 400 mL of an exudative, neutrophilic, noninfected cytology negative effusion.? Weaned to 2 L and discharged to inpatient rehab on 04/12/2023 and discharged back to [facility] on 04/25/2023. 03/19/24: overall since admission the patient feels the same or a little bit better. she still has shortness of breath, hot feelings, sweats. She has no wheezing. Plan: Today is day 5 of prednisone and will discontinue. Continue levalbuterol and ipratropium nebulizers q.6 hours. Continue Vest therapy and Cornet flutter valve to aid expectoration. Will add guaifenesin 1200 mg p.o. b.i.d. today. 03/20/24: patient continues to improve and says she is breathing at her baseline. She still has phlegm but this has improved. Plan: Continue levalbuterol and ipratropium nebulizers q.6 hours, Vest therapy, Cornet flutter valve, guaifenesin 1200 mg p.o. b.i.d.. 03/21/24: patient continues to improve. She still has phlegm but this is minimal. Plan: I will place her on her on Anoro and discontinue levalbuterol and ipratropium nebulizers q.6 hours. Continue Vest therapy, Cornet flutter valve, guaifenesin 1200 mg p.o. b.i.d.. I will perform overnight oximetry tonight on 6 L. (3) Pulmonary nodules: Code(s): R91.8 - Other nonspecific abnormal finding of lung field Status: Acute Assessment and Plan: CT chest 03/12/2024 compared to 03/30/2023 with 7 mm RML nodule, needs [address] chest as this has grown; the 1 cm nodule in the right apex is stable. Plan: Repeat CT scan on 09/10/2024. (4) Aortic valve stenosis: Qualifiers: Cardiac valve disease etiology: nonrheumatic Qualified Code(s): I35.0 - Nonrheumatic aortic (valve) stenosis Code(s): I35.0 - Nonrheumatic aortic (valve) stenosis Status: Acute Assessment and Plan: Echocardiogram 01/26/2022 with aortic valve area 1.7 cm, PASP 44. Echocardiogram 03/22/2023 with moderate aortic stenosis valve area 1.5 cm and mild TR with PASP 43. Echocardiogram 03/15/2024 reviewed with windows migration technician and valve area is 1.1 with moderate aortic stenosis and moderate aortic regurgitation. Mildly enlarged right ventricle with normal function. Right atrium is normal. Positive right to left bubble study at 4-5 beats with no Valsalva and with 2 beats with Valsalva with bubbles appearing from the pulmonary vein rather than the septum. 03/20/24: plan: For aortic stenosis this could be contributing to patient's clinical issues and will repeat an echocardiogram in 6 months. (5) Right to left cardiovascular shunt: Status: Acute Assessment and Plan: Echocardiogram 03/15/2024 reviewed with windows migration technician and aortic valve area is 1.1 with moderate aortic stenosis and moderate aortic regurgitation. Mildly enlarged right ventricle with normal function. Right atrium is normal. Positive right to left bubble study at 4-5 beats with no Valsalva and with 2 beats with Valsalva with bubbles appearing from the pulmonary vein rather than through the septum. 03/19/24: Plan: Regarding the right to left shunt which is appears to be predominantly an intrapulmonary shunt, if she does not improve with treatment for fluid overload, pneumonia, COPD will consider further assessment to determine if there is a cardiac shunt such as a PFO with ROSEMARY and or right ventricular catheterization. Echocardiographically it does not appear she has a chronic PFO as she is 78 years old making a congenital abnormality unlikely and her pulmonary hypertension has been relatively stable over the last year with normal right ventricular function. Of note, the patient is already on chronic anticoagulated for atrial fibrillation. 03/20/24: Patient's oxygenation has improved overnight and currently on 4 L at rest. Plan: Continue chronic anticoagulation with apixaban 5 mg p.o. q.12 hours. Goal saturation 90-94%. Subjective Date/time seen: 03/21/24 10:14 Interval history: new; 03/15/24; Maria Dolores Henry is 78 years old, followed by our practice, has COPD, chronic respiratory failure, uses O2 at home. She is using 4-5 L/min at rest, 6 L/min with exertion and sleep. She saw Dr Donato in the office Mar 05, and was stable according to his note. Her COPD regimen included Stiolto Respimat 2.5-2.51 puff daily and albuterol rescue inhaler 3-4 times per day, guaifenesin 600 mg every other day and Lasix 40 mg b.i.d.. She has not smoked since September of 2023. She has no secondhand tobacco exposure. She is up-to-date on all vaccinations.She was admitted to [facility] in Mar 2023 with pneumonia, pleural effusions, COVID; sputum grew out Aspergillus without focal lung consolidations or cavitations and she was treated with voriconazole for 14 days for presumed colonization Mar 2023. . She was admitted on TuesdayMar 12. She says that she has not been feeling well for a few weeks. She is up-to-date on her vaccinations influenza, RSV, COVID. on admission, the PCR for these (-). At first, her sputum was brown but now she has a barking cough, says she feels like she has a croupy cough. ABG = no CO2 retention, pH 7.47, pCO2 41, PO2 125 on 15 L non-rebreather mask.. CXR = no infiltrate, mainly effusion, CTA on March 14 shows large effusion on the right smaller effusion on the left and a 7 mm nodule in the right anterior lung. Treated with Zosyn and doxycycline, now po doxycycline. She has a higher O2 requirement today, up to 15 L /min. She has no fever, no sputum now. Her echo 03/13 shows a right to left shunt. not sure how significant this is, but shunts cause hypoxemia. WBC = 7.1 Mar 12, now 7.4k; D-Dimer 2.67. Negative troponin. BNP 2940. Mar 15 CXR = more pulmonary edema, right pleural effusion, no infiltrate. WBC is stable, 7.4k. She was given Lasix 80mg IV and Duoneb in the ED Suspect CHF exacerbation and related to pleural effusions. Can not exclude PNA. 03/17: The patient is on much higher amounts of O2. Used CPAP overnight, today used non-rebreather,, now on high flow nasal cannula. Saturation is 90-91% using 60 L/min and FiO2 90%. this is the highest amount of O2 she has been on this admission. A year ago, she had COVID, low O2 saturation, also had a thoracentesis, grew Aspergillus on sputum, was treated with voriconazole x 14 days. 03/18: Still on Air Vo 60L & 90%, improved saturation, 95%. sometimes, her saturaiotn drops into the 70s. Resp rate 20-24, no fever. CXR last night showed some improvement. She had Dornase adrian mucolytic, was fitted for the vibratory vest, and is using Cornet bonnie. She has expectorated sputum in a container by the bed, reddish liquid with dark plugs, consistent with Aspergillus. She notes that she feels very similar to how she felt last March, when she had Aspergillus in her sputum. Procalcitonin Dec 6 was 0.6, normal. This is not consistent with bacterial infection. K+ 2.8 today, replaced. 03/19/24: overall Since admission the patient feels the same or a little bit better. she still has shortness of breath, hot feelings, sweats. She is afebrile. White blood cell count is 8.1, creatinine is 0.9. BNP is 1990 ( decreased from 2940 and 2740 on admission). When I enter the room the patient was on Airvo 60 L 91% FiO2 with saturations 95% on her right ear probe and 100% on her right hand finger probe. I changed her to 15 L nasal cannula and her right hand saturation was 95%. I decreased her to 10 L and her right hand saturation was 92-93% with a right ear probe measuring 88% and a left hand saturation measuring 91-92%. Later in the day the patient had a thoracentesis with 300 mL of kenneth fluid removed. G stain was many white blood cells, no organisms seen. PH greater than 7.50, white blood cell count 2109 with a differential neutrophils 17%, lymphocytes 32%, macrophages 38%, mesothelial cells 13%. 03/20/24: Patient slept with 10 L nasal cannula S night and said she slept well. She finished physical therapy and was walking in the room and did well. When I enter the room she was on 10 L nasal cannula oxygen with saturations 99%. I decreased her to 4 L nasal cannula and after 9 minutes her saturations were 95%. chest x-ray today showed no pleural effusions, diffuse interstitial alveolar infiltrates unchanged. Her weight today is 70.4 in overall she is positive 400 mL since admission. 03/21/24: Overall the patient states that she slept well on nasal cannula oxygen. She denies fever, chills, rigors phlegm production or hemoptysis. She is afebrile. White blood cell count 11.3, creatinine 1.3, on 4 L nasal cannula saturations are 91%. Lasix has been held. DATA: * 03/17/24; CXR; Airspace opacities in the lower lung zones with interval improvement, consistent with atelectasis versus pneumonia. 2. Mild pulmonary edema. 3. Cardiomegaly. * 03/12/2024 CXR; There is a diffuse interstitial pattern in the lungs, consistent with pulmonary edema. There is mild atelectasis at the lung bases. There are small pleural effusions. No pneumothorax. Cardiomegaly is noted. IMPRESSION: 1. Mild pulmonary edema. 2. Small pleural effusions. 3. Cardiomegaly. * 03/13/24 chest CTA - Nodule is seen in the right middle lobe measuring 7 mm. 6 months follow-up advised. This nodule is larger than the previous study. Interstitial thickening is seen in the apical area which may indicate pneumonitis versus edema. Minimal atelectatic changes seen in the middle lobe. Nodule is seen in the right apical area measuring 1 cm. No pulmonary masses. No pneumothorax. Bilateral large pleural effusion with adjacent atelectasis seen. . VISUALIZED UPPER ABDOMEN: Status post cholecystectomy. small left kidney cyst. Possible left kidney lower pole a stone. Otherwise, the visualized upper abdomen is normal. MUSCULOSKELETAL: Soft tissues: The superficial soft tissues are normal. Bones: Age appropriate degenerative changes of the spine. Old compression fracture is seen in T7. IMPRESSION: 1. No pulmonary embolism. 2. Bilateral large pleural effusion with adjacent atelectasis. 3. Mediastinal and bilateral hilar lymphadenopathy. 4. Nodule is seen in the right middle lobe and upper lobe. 6 months follow-up CT is advised. 5. Interstitial thickening in the apical areas which may indicate edema versus pneumonitis. * 03/13/24 = EchoThere is [id number] shunt evidenced by the positive agitated saline study. 2. The left ventricle is normal in size and systolic function. The left ventricular ejection fraction is visually estimated to be 50-55%. 3. The right ventricle is mildly dilated with preserved systolic function. 4. The aortic valve is trileaflet and heavily calcified. There is moderate aortic stenosis with a valve area of 1.1 cm2. There is moderate aortic regurgitation. 11/04/2023: Polysomnogram Periodic Limb Movements The patient had 87 isolated limb movements with an index of 14.1. The patient had 215 periodic limb movements with an index of 34.9, which is elevated (normal <15). Patient had a total of 302 limb movements with a total limb movement index of 49.0. Assessment and plan: (1) Nocturnal hypoxemia: The patient had an overall AHI of 2.1 with desaturation down to 77%. This is not consistent with sleep-disordered breathing. The patient had persistent hypoxemia in the absence of respiratory events. Supplemental oxygen was started at 1 lpm of O2 and titrated to 3.5 lpm of O2. The patient oxygen saturation was unable to remain above 90% on the final oxygen settings. I recommend that the patient use 4 lpm of supplemental oxygen with sleep. I recommend that she have a nocturnal oximetry done 2 weeks after implementing the recommended oxygen settings to ensure that her oxygen saturation remains above 90%. (2) PLMD (periodic limb movement disorder): The patient had a significant number of limb movements during the study with the majority being periodic in nature. Approximately 25% of the periodic limb movements caused arousals during sleep. The patient's sleep history does not suggest Restless Leg Syndrome. I recommend that the patient have a serum ferritin drawn for evaluation of iron deficiency anemia. If the patient has a serum ferritin less than 75 ng/mL, I recommend starting a daily iron supplement and a Vitamin C supplement for better absorption. If the serum ferritin is greater than 75 ng/mL, I recommend starting a dopamine agonist and titrating the dose until symptoms resolve. There are nonpharmacological methods to treat limb movements including daily exercise, stretching calf muscles before bed, avoiding excessive amounts of caffeine and alcohol, vitamin B supplementation, magnesium lotion massaged into legs before bed, and use of a weighted blanket. I will order ferritin blood test. 10/25/2023: Overnight oximetry on 6 L nasal cannula. The family was present for this test and confirmed the patient was on 6 L, and that she wore the 6 L all night. Recording duration 9 hours and 57 minutes. Basal saturation 94.6%. High saturation 99%. Low saturation 82%. Time with saturation less than or equal to 88% was 2 minutes and 26 seconds. Oxygen desaturation index was 7. I will continue 6 L nasal cannula at night. 07/06/2023 (results received from [facility] on 08/25/23):? Overnight oximetry on 5 L nasal cannula.? Recording duration 9 hours and 35 minutes.? Basal saturation 86.6%.? High saturation 98%.? Low saturation 65%.? Time with saturation less than or equal to 88% was 4 hours and 28 minutes.? Oxygen desaturation index is 20. unsure if patient was wearing oxygen and at what level, repeat ordered on 5 L 05/13/2023: Home O2 assessment:? Rest room air saturation 86%.? Rest nasal cannula 1 L saturation 88%.? Rest nasal cannula 2 L saturation 90%.? Exercise nasal cannula 2 L saturation 88%.? Exercise nasal cannula 3 L saturation 90%. ?Requires 2 L with rest and 3 with activity 03/12/30 EXAMINATION: XR chest 1V portable ??INDICATION: Pleural effusions. ??COMPARISON: Chest single view 04/08/2023, chest CT 03/30/2023 ??FINDINGS: There is a diffuse interstitial pattern in the lungs. There are airspace opacities in right mid and lower lung zones and left lower lung zone. There are small pleural effusions. No pneumothorax. Cardiomegaly is noted. ??IMPRESSION: ??1. Stable diffuse lung disease, consistent with pulmonary edema versus pneumonia. ??2. Stable small pleural effusions. ??3. Cardiomegaly. ?03/23/23: EXAMINATION: CTA chest PE protocol ??DATE: 03/23/2023 14:04 ??INDICATION: SOB ??COMPARISON: 07/20/2022 ??FINDINGS: The pulmonary arteries are well-opacified. No pulmonary embolism is identified. There are moderate-sized right and small left pleural effusions. There is complete left upper lobe collapse due to mucous plugging. There is also complete atelectasis of the right middle lobe. There is intralobular septal thickening with groundglass opacity with a right lung predominance. There is dependent atelectasis of the left lower lobe. There is a right breast implant. There is mild bilateral hilar and mediastinal lymphadenopathy, likely reactive. No pneumothorax is identified. Punctate calcifications in an otherwise normal spleen likely represent healed granulomatous disease. Changes of cholecystectomy are noted. There is moderate thoracic spondylosis. A chronic T8 compression fracture is noted. ??IMPRESSION: ??1. No pulmonary embolus. ??2. Left upper lobe collapse related to mucous plugging ??3. Complete atelectasis of the right middle lobe. ??4. Moderate size right and small left pleural effusions. ??5. Findings consistent with asymmetric edema of the right upper lobe. ?03/30/[address] Mild pulmonary edema. ??2. Mild atelectasis in the lungs with interval improvement. ??3. Moderate emphysema. ??4. Small pleural effusions. ?03/22/23 Echo Summary ??? 1. Complete two-dimensional, color flow and Doppler transthoracic ??echocardiogram is performed. ??? 2. Severe pulmonary artery enlargement. ??? 3. Left ventricular chamber dimension is normal. ??? 4. Left ventricular systolic function is normal, estimated at 60-65%. ??? 5. There is mildly increased left ventricular wall thickness. ??? 6. The left ventricular diastolic function is grade II diastolic ??dysfunction. ??? 7. The basal inferior wall is akinetic. ??? 8. Left atrial chamber dimension is moderately enlarged. ??? 9. Right atrial chamber dimension is mildly enlarged. ??? 10. Right ventricular chamber dimension is mildly enlarged. ??? 11. There is moderate aortic valve stenosis with a peak velocity of 224 ??cm/s, mean gradient of 11 mmHg, and aortic valve area of 1.5 cm2. ??? 12. There is moderate aortic valve regurgitation. ??? 13. There is moderate aortic valve calcification. ?? 14. The mitral valve annulus is mildly calcified. ??? 15. There is moderate mitral valve regurgitation. ??? 16. There is mild tricuspid valve regurgitation. ??? 17. Mild pulmonary hypertension, estimated pulmonary arterial systolic ??pressure is 43 mmHg. ??? 18. There is mild pulmonic regurgitation. ??Right Ventricle ??? Right ventricular chamber dimension is mildly enlarged. ??? Right ventricular systolic function is normal. ??Right Atria ??? Right atrial chamber dimension is mildly enlarged. ?? * 03/17/23 CXR compared to 01/24 CXR with intervall progression of bilateral airspace disease which may represent edema and/or pneumonia. ??document embedded image ??* 01/26/23 - echo: EF 65-70%, mildly increased LV wall thickness, LV diastolic function indeterminate, mild aortic valve stenosis with valve area 1.7 cm2, , mild-mod aortic and tricuspid valve regurgitation, mild pulmHTN RVSP 44mmHg. ??* 07/20/[address] - Stable pulmonary nodules, likely benign. Moderate emphysema. ??* 12/16/21 Home O2 Eval - need for 2L O2 with activity, none at rest. ??* 01/26/22: Overnight oximetry - 324 min spent below 88% saturation. ? ?07/17/2021 PFTs ?The test was performed and results interpreted in accordance with the 2019 and 2005 ATS/ERS Task Force guidelines respectively using the Global Lung Function Initiative-2012 reference equations. Patient demonstrated good effort and cooperation. Reproducibility criteria were met. The quality of the spirometry maneuver was Grade A.? Of note the patient had persistent coughing throughout the test. ?Findings: ?Spirometry:? There is decreased maximal expiratory airflow at all lung volumes with a concave expiratory flow tracing.? The contour the inspiratory flow tracing is normal.? The FVC is 2.13 L, 81% predicted.? The FEV1 is 1.25 L, 62% predicted.? The FEV1:? FVC ratio is 59%. ?Plethysmography:? The total lung capacity is 5.70 L, 112% predicted.? The functional residual capacity is 4.32 L, 148% predicted.? The residual volume is 3.04 L, 130% predicted.? ?Diffusing capacity:? The diffusing capacity unadjusted for hemoglobin and carboxyhemoglobin is 8.0, 40% predicted.? The diffusing capacity adjusted for alveolar volume is 2.26, 54% predicted. ?Impression: There is a moderate obstructive abnormality. Hyperinflation is present is demonstrated by the increase in functional residual capacity and is consistent with an obstructive abnormality. The diffusing capacity unadjusted for hemoglobin is moderately decreased and normalizes when adjusted for alveolar volume. ?There are no prior studies for comparison ? ??* 05/25/22 : Overnight oximetry on 2.5L O2 - 13min spent below 88% but looks likely artifact. She continued 2.5L. ??* 07/26/20 - Chest CT:? mild to moderate emphysema. 6 mm right middle lobe nodule along a band of linear discoid atelectasis/scarring. ??* Alpha 1 MM normal. Review of Systems Review of Systems: All systems reviewed & are unremarkable except as noted in HPI and below Constitutional: Constitutional: Reports no additional constitutional complaints Eyes: Eyes: Reports no additional eye complaints ENT: Reports system reviewed and no additional complaints, except as documented Cardiovascular: Cardiovascular: Reports no additional cardiovascular complaints Respiratory: Respiratory: Reports no additional respiratory complaints Gastrointestinal: Gastrointestinal: Reports no additional gastrointestinal complaints Musculoskeletal: Musculoskeletal: Reports no additional musculoskeletal complaints Neurologic: Reports system reviewed and no additional complaints, except as documented Psychiatric: Psychiatric: Reports no additional psychiatric complaints Endocrine: Endocrine: Reports no additional endocrine complaints Hematologic/Lymphatic: Hematologic/Lymphatic: Reports no additional hematologic/lymphatic complaints Allergic/Immunologic: Allergic/Immunologic: Reports no additional allergic/immunologic complaints Exam Const: General: cooperative and comfortable Orientation/consciousness: oriented to person, oriented to place and oriented to time HENMT: Head: normal to inspection Ears: hearing grossly normal bilaterally Eyes: General: appearance normal, both eyes and all related structures Neck: Neck: normal visual inspection Chest: Chest palpation & inspection: normal inspection of the chest Resp: Effort & Inspection: normal respiratory effort and able to speak in complete sentences Auscultation: crackles, no rales, no rhonchi, no wheezes and lung sounds not diminished Cardio: Jugular venous distension: no JVD GI: Inspection: normal to inspection Skin: General skin exam: normal color Neuro: General: oriented to person, oriented to place and oriented to time Extrem: General: normal to inspection and no edema Psych: Appearance: grossly normal Objective Data Vital Signs Vital Signs: Vital Signs - 24 hr 03/20/24 11:34 03/20/24 12:00 03/20/24 12:00 Temperature 36.4 C L Pulse Rate 95 88 Respiratory Rate 18 Blood Pressure 115/55 L Pulse Oximetry 92 94 Oxygen Delivery High Flow Nasal Cannula Oxygen Flow Rate 4 Fraction of Inspired Oxygen 03/20/24 13:15 03/20/24 13:25 03/20/24 15:30 Temperature 36.3 C L Pulse Rate 93 92 93 Respiratory Rate 18 18 16 Blood Pressure 123/58 L Pulse Oximetry 95 Oxygen Delivery Oxygen Flow Rate Fraction of Inspired Oxygen 03/20/24 16:00 03/20/24 16:00 03/20/24 18:00 Temperature Pulse Rate 94 96 Respiratory Rate Blood Pressure Pulse Oximetry 91 Oxygen Delivery High Flow Nasal Cannula Oxygen Flow Rate 4.5 Fraction of Inspired Oxygen 03/20/24 20:00 03/20/24 20:00 03/20/24 20:07 Temperature Pulse Rate 106 H 106 H 95 Respiratory Rate 20 18 Blood Pressure Pulse Oximetry 91 Oxygen Delivery High Flow Nasal Cannula Oxygen Flow Rate 6 Fraction of Inspired Oxygen 90 03/20/24 20:22 03/20/24 20:24 03/20/24 20:54 Temperature 36.9 C Pulse Rate 101 H 95 101 H Respiratory Rate 18 20 Blood Pressure 132/54 L Pulse Oximetry 96 91 Oxygen Delivery High Flow Nasal Cannula Oxygen Flow Rate 4.5 Fraction of Inspired Oxygen 03/20/24 22:00 03/21/24 00:00 03/21/24 00:00 Temperature Pulse Rate 94 83 83 Respiratory Rate 20 Blood Pressure Pulse Oximetry 93 Oxygen Delivery High Flow Nasal Cannula Oxygen Flow Rate 6 Fraction of Inspired Oxygen 90 03/21/24 00:13 03/21/24 02:00 03/21/24 02:01 Temperature 37.0 C Pulse Rate 87 96 81 Respiratory Rate 20 18 Blood Pressure 119/60 Pulse Oximetry 93 Oxygen Delivery Oxygen Flow Rate Fraction of Inspired Oxygen 03/21/24 02:13 03/21/24 04:00 03/21/24 04:00 Temperature Pulse Rate 81 93 93 Respiratory Rate 18 20 Blood Pressure Pulse Oximetry 96 Oxygen Delivery High Flow Nasal Cannula Oxygen Flow Rate 6 Fraction of Inspired Oxygen 90 03/21/24 04:34 03/21/24 05:20 03/21/24 06:00 Temperature 36.9 C Pulse Rate 95 86 88 Respiratory Rate 20 Blood Pressure 136/58 L Pulse Oximetry 96 Oxygen Delivery Oxygen Flow Rate Fraction of Inspired Oxygen 03/21/24 07:18 03/21/24 07:19 03/21/24 07:22 Temperature 36.8 C Pulse Rate 93 108 H Respiratory Rate 18 18 Blood Pressure 131/68 Pulse Oximetry 98 97 Oxygen Delivery High Flow Nasal Cannula Oxygen Flow Rate 6 Fraction of Inspired Oxygen 03/21/24 07:36 03/21/24 08:00 Temperature Pulse Rate 106 H Respiratory Rate 18 Blood Pressure Pulse Oximetry 92 Oxygen Delivery High Flow Nasal Cannula Oxygen Flow Rate 4 Fraction of Inspired Oxygen Intake/Output Intake/Output: Intake & Output 03/18/24 03/19/24 03/20/24 03/21/24 23:59 23:59 23:59 23:59 Intake Total 4489 237 5680 240 Output Total 800 7189 1175 800 Balance 1020 -710 -65 -560 Meds/Results Medications: Active Medications Generic Name Dose Route Start Last Admin Trade Name Freq PRN Reason Stop Dose Admin Acetaminophen 650 mg 03/16/24 17:50 03/21/24 09:31 Acetaminophen 325 Mg Tablet PO 650 mg Q4H PRN Administration Mild Pain (1-5) Or Fever Hydrocodone Bitart/Acetaminophen 1 tab 03/16/24 17:49 Hydrocodone/Acetaminophen (*Crx) 5-325 Mg Tablet PO Q6H PRN Pain Rated 6 or Greater Albuterol/Ipratropium 3 ml 03/12/24 20:15 03/15/24 12:25 Ipratropium 0.5 Mg/Albuterol Sulfate 2.5 Mg Ampul.Neb 3 Ml INHALATION 3 ml Q4H PRN Administration SHORTNESS OF BREATH Alprazolam 1 mg 03/13/24 21:00 03/20/24 21:16 Alprazolam (*Crx) 0.5 Mg Tablet PO 1 mg QHS HEIDE Administration Amoxicillin/Clavulanate Potassium 1 tablet 03/21/24 09:00 03/21/24 09:28 Amoxicillin/Clavulanate K 875-125 Mg Tab PO 03/26/24 21:01 1 tablet Q12HR HEIDE Administration Apixaban 5 mg 03/13/24 21:00 03/21/24 09:29 Apixaban 5 Mg Tablet PO 5 mg Q12HR HEIDE Administration Atorvastatin Calcium 10 mg 03/13/24 21:00 03/20/24 21:16 Atorvastatin 10 Mg Tablet PO 10 mg HS HEIDE Administration Bisacodyl 5 mg 03/12/24 20:10 03/17/24 09:01 Bisacodyl 5 Mg Tablet Ec PO 5 mg DAILY PRN Administration Constipation Clopidogrel Bisulfate 75 mg 03/13/24 09:00 03/21/24 09:29 Clopidogrel Bisulfate 75 Mg Tablet PO 75 mg DAILY HEIDE Administration Colestipol HCl 2 gm 03/13/24 09:00 03/21/24 09:28 Colestipol Hcl 1 Gm Tablet PO 2 gm DAILY HEIDE Administration Dextrose 12.5 gm 03/21/24 07:31 Dextrose 50% 25 Gm/50 Ml Syringe IV PUSH PRN PRN Hypoglycemia Protocol Diltiazem HCl 360 mg 03/13/24 09:00 03/21/24 09:28 Diltiazem Hcl Cd 180 Mg Cap.24hr PO 360 mg DAILY HEIDE Administration Empagliflozin 10 mg 03/20/24 09:00 03/21/24 09:29 Empagliflozin 10 Mg Tablet PO 10 mg DAILY HEIDE Administration Ferrous Sulfate 325 mg 03/16/24 09:00 12 09:29 Ferrous Sulfate [address] PO 325 mg DAILY HEIDE Administration Furosemide 40 mg 03/21/24 09:00 Furosemide 40 Mg Tablet PO BID HEIDE Glucagon 1 mg 03/21/24 07:31 Glucagon For Inj 1 Mg Vial IM PRN PRN Hypoglycemia Protocol Glucose 15 gm 03/21/24 07:31 Glucose Oral Gel 15 Gm Of Glucse In 37.5 Gm Tube PO PRN PRN Hypoglycemia Protocol Guaifenesin 1,200 mg 03/19/24 11:10 03/21/24 09:28 Guaifenesin 12 Hr 600 Mg Tabcr PO 1,200 mg Q12HR HEIDE Administration Dextrose 1,000 mls @ 100 mls/hr 03/21/24 07:31 Dextrose 5% 1,000 Ml IVPB PRN PRN Hypoglycemia Protocol Insulin Aspart 2 - 5 units 03/21/24 08:00 03/21/24 09:27 Insulin Aspart (*Bkc) 100 Units/Ml SUB-Q Not Given TIDWM HEIDE Protocol Insulin Aspart 1 - 2 units 03/21/24 21:00 Insulin Aspart (*Bkc) 100 Units/Ml SUB-Q HS [facility] Protocol Ipratropium [place] 0.5 mg 03/12/24 20:00 03/21/24 07:16 Ipratropium Br 0.02% Inh Soln 0.5 Mg/2.5 Ml Vial INHALATION 0.5 mg Q6HRT HEIDE Administration Levalbuterol HCl 0.63 mg 03/12/24 20:00 03/21/24 07:16 Levalbuterol Neb 1.25 Mg/3 Ml INHALATION 0.63 mg Q6HRT HEIDE Administration Lorazepam 0.5 mg 03/15/24 10:41 03/16/24 12:01 Lorazepam Inj (*Crx) 2 Mg/Ml Vial IV PUSH 0.5 mg Q6H PRN Administration Anxiety Sertraline HCl 200 mg 03/13/24 09:00 03/21/24 09:28 Sertraline Hcl 50 Mg Tablet PO 200 mg DAILY HEIDE Administration Sodium Chloride 1 spray 03/16/24 17:48 Saline 0.65% Te[place] Soln 44 Ml Btl NASAL Q6HR PRN Congestion Sodium Chloride 6 ml 03/20/24 05:00 03/21/24 06:09 Sodium Chlor 3% 15 Ml Neb (Respiratory Therapy) INHALATION 03/22/24 05:01 Not Given DAILY@0500 [facility] Radiology Results: ITS Impressions Chest CTA 03/12/24 17:42 IMPRESSION: 1. No pulmonary embolism. 2. Bilateral large pleural effusion with adjacent atelectasis. 3. Mediastinal and bilateral hilar lymphadenopathy. 4. Nodule is seen in the right middle lobe and upper lobe. 6 months follow-up CT is advised. 5. Interstitial thickening in the apical areas which may indicate edema versus pneumonitis. Renal Ultrasound 03/15/24 20:32 IMPRESSION: No definite abnormal. Small simple cyst in the right kidney lower pole. Thoracentesis Ultrasound 03/19/24 12:48 IMPRESSION: 1. Successful ultrasound-guided thoracentesis yielding 300 mL of kenneth-colored fluid. Chest X-Ray 03/20/24 09:30 Impression: 1: Persistent diffuse bilateral interstitial infiltrates, most likely edema although chronic interstitial lung disease cannot be excluded. Labs Labs: Laboratory Results - last 24 hr 03/15/24 03/18/24 03/20/24 10:56 04:35 11:36 WBC RBC Hgb Hct MCV MCH MCHC RDW Plt Count MPV Immature Gran % (Auto) Neut % (Auto) Lymph % (Auto) [place] % (Auto) Eos % (Auto) Baso % (Auto) Lymph # (Auto) [place] # (Auto) Eos # (Auto) Baso # (Auto) Abs Immat Gran (auto) Absolute Neuts (auto) Absolute Nucleated RBC Nucleated RBC % Sodium Potassium Chloride Carbon Dioxide Anion Gap BUN Creatinine Estim Creat Clear Calc Estimated GFR Glucose POC Capillary Glucose 125 H Calcium Total Bilirubin AST ALT Alkaline Phosphatase Total Protein Albumin Methylmalonic Acid 366 TB Test (QFT) Gold Plus Negative TB Test (QFT) Nil 0.01 TB Test Mitogen - Nil 2.16 TB Test Ag - Nil 1 0.00 TB Test Ag - Nil 2 0.00 03/21/24 04:47 WBC 11.3 H RBC 3.49 L Hgb 9.9 L Hct 32.5 L MCV 93.1 MCH 28.4 MCHC 30.5 L RDW 15.9 H Plt Count 229 MPV 9.1 Immature Gran % (Auto) 1.0 H Neut % (Auto) 71.2 Lymph % (Auto) 18.4 [place] % (Auto) 6.1 Eos % (Auto) 3.0 Baso % (Auto) 0.3 Lymph # (Auto) 2.08 [place] # (Auto) 0.7 H Eos # (Auto) 0.3 Baso # (Auto) 0.0 Abs Immat Gran (auto) 0.11 H Absolute Neuts (auto) 8.1 H Absolute Nucleated RBC 0.000 Nucleated RBC % 0.0 Sodium 140 Potassium 3.6 Chloride 99 Carbon Dioxide 36 H Anion Gap 5 BUN 19 H Creatinine 1.30 H Estim Creat Clear Calc 28 Estimated GFR 39 L Glucose 122 H POC Capillary Glucose Calcium 8.9 Total Bilirubin 0.7 AST 35 ALT 21 Alkaline Phosphatase 73 Total Protein 7.0 Albumin 4.0 Methylmalonic Acid TB Test (QFT) Gold Plus TB Test (QFT) Nil TB Test Mitogen - Nil TB Test Ag - Nil 1 TB Test Ag - Nil 2
--- NOTE | 2024-03-21 10:32 | P.PNIM_ITS ---
Progress Note: A&P Assessment and Plan (1) History of tobacco abuse: Code(s): Z87.891 - Personal history of nicotine dependence Status: Acute (2) Pulmonary nodules: Code(s): R91.8 - Other nonspecific abnormal finding of lung field Status: Acute (3) CHF (congestive heart failure): Code(s): I50.9 - Heart failure, unspecified Status: Acute (4) Atrial fibrillation: Code(s): I48.91 - Unspecified atrial fibrillation Status: Chronic (5) Acute on chronic respiratory failure: Qualifiers: Respiratory failure complication: hypoxia Qualified Code(s): J96.21 - Acute and chronic respiratory failure with hypoxia Code(s): J96.20 - Acute and chronic respiratory failure, unspecified whether with hypoxia or hypercapnia Status: Acute (6) Pleural effusion: Code(s): J90 - Pleural effusion, not elsewhere classified Status: Acute Plan 78-year-old female with past medical history of chronic respiratory failure, on home O2, coronary artery disease status post PCI, atrial fibrillation presented with worsening shortness of breath. Influenza a, B were negative along with COVID on admission. CT chest done on admission showed Bilateral large pleural effusion with adjacent atelectasis. Pulmonary was consulted. 1. Acute on chronic hypoxic respiratory failure: Continue with O2 support She has a hx of sputum cx positive for Mold and Aspergillus in Mar 2023. Treated with Vorconazole for 14 days. Pulmonary following Echo showing right to left shunt by positive agitated saline study, normal LV size and systolic fxn with EF 50-55%, dilated RV with preserved systolic function and moderate , moderate AI and mild MR. Patient was started on antibiotic, treated with doxycycline, Zosyn while in the hospital, currently on Augmentin to complete a total 14 day course Lasix has been held transiently today due to slight worsening kidney function Will monitor closely for worsening respiratory status in setting of diuresis being held Overnight pulse oximetry study was done Plan for 6 minute walk on day of discharge Continue with bronchodilators, Jardiance Monitor leukocytosis 2. Dirk on chronic kidneys disease stage III: Avoid nephrotoxins Will hold Lasix today Recheck BMP in a.m. Will reassess the dose of Lasix based on renal function tomorrow morning 3. History of atrial fibrillation: Continue with CardizemSherlyis 4. Chronic anemia: Continue with iron supplement 5. DVT prophylaxis: On Eliquis 6. Code status: DNR 7. Disposition: Pending improvement, anticipate discharge within next 24-48 hours. Patient lives at assisted living facility, patient started concerned about her going back to the assisted living without any rehabilitation therapy at the rehab. Will discuss with telehealth case manager Time Spent With Patient Time: 38 minutes Subjective Date/time seen: 03/21/24 10:32 Interval history: No acute events overnight, currently on 4 L of O2 support which is her baseline Review of Systems Review of Systems: All systems reviewed & are unremarkable except as noted in HPI and below Exam Narrative: Gen -no acute distress, resting in bed comfortably, daughter on speaker phone Chest - scattered rhonchi but overall improved air exchange. CV - irregularly irregular. Abd - Soft, NT/ND, Positive BS Ext - No pedal edema Psych - Nml mood and affect Skin - Warm and dry Objective Data Vital Signs Vital Signs: Vital Signs - 24 hr 03/20/24 11:34 03/20/24 12:00 03/20/24 12:00 Temperature 97.5 F L Pulse Rate 95 88 Respiratory Rate 18 Blood Pressure 115/55 L Pulse Oximetry 92 94 Oxygen Delivery High Flow Nasal Cannula Oxygen Flow Rate 4 Fraction of Inspired Oxygen 03/20/24 13:15 03/20/24 13:25 03/20/24 15:30 Temperature 97.4 F L Pulse Rate 93 92 93 Respiratory Rate 18 18 16 Blood Pressure 123/58 L Pulse Oximetry 95 Oxygen Delivery Oxygen Flow Rate Fraction of Inspired Oxygen 03/20/24 16:00 03/20/24 16:00 03/20/24 18:00 Temperature Pulse Rate 94 96 Respiratory Rate Blood Pressure Pulse Oximetry 91 Oxygen Delivery High Flow Nasal Cannula Oxygen Flow Rate 4.5 Fraction of Inspired Oxygen 03/20/24 20:00 03/20/24 20:00 03/20/24 20:07 Temperature Pulse Rate 106 H 106 H 95 Respiratory Rate 20 18 Blood Pressure Pulse Oximetry 91 Oxygen Delivery High Flow Nasal Cannula Oxygen Flow Rate 6 Fraction of Inspired Oxygen 90 03/20/24 20:22 03/20/24 20:24 03/20/24 20:54 Temperature 98.5 F Pulse Rate 101 H 95 101 H Respiratory Rate 18 20 Blood Pressure 132/54 L Pulse Oximetry 96 91 Oxygen Delivery High Flow Nasal Cannula Oxygen Flow Rate 4.5 Fraction of Inspired Oxygen 03/20/24 22:00 03/21/24 00:00 03/21/24 00:00 Temperature Pulse Rate 94 83 83 Respiratory Rate 20 Blood Pressure Pulse Oximetry 93 Oxygen Delivery High Flow Nasal Cannula Oxygen Flow Rate 6 Fraction of Inspired Oxygen 90 03/21/24 00:13 03/21/24 02:00 03/21/24 02:01 Temperature 98.6 F Pulse Rate 87 96 81 Respiratory Rate 20 18 Blood Pressure 119/60 Pulse Oximetry 93 Oxygen Delivery Oxygen Flow Rate Fraction of Inspired Oxygen 03/21/24 02:13 03/21/24 04:00 03/21/24 04:00 Temperature Pulse Rate 81 93 93 Respiratory Rate 18 20 Blood Pressure Pulse Oximetry 96 Oxygen Delivery High Flow Nasal Cannula Oxygen Flow Rate 6 Fraction of Inspired Oxygen 90 03/21/24 04:34 03/21/24 05:20 03/21/24 06:00 Temperature 98.5 F Pulse Rate 95 86 88 Respiratory Rate 20 Blood Pressure 136/58 L Pulse Oximetry 96 Oxygen Delivery Oxygen Flow Rate Fraction of Inspired Oxygen 03/21/24 07:18 03/21/24 07:19 03/21/24 07:22 Temperature 98.3 F Pulse Rate 93 108 H Respiratory Rate 18 18 Blood Pressure 131/68 Pulse Oximetry 98 97 Oxygen Delivery High Flow Nasal Cannula Oxygen Flow Rate 6 Fraction of Inspired Oxygen 03/21/24 07:36 03/21/24 08:00 Temperature Pulse Rate 106 H Respiratory Rate 18 Blood Pressure Pulse Oximetry 92 Oxygen Delivery High Flow Nasal Cannula Oxygen Flow Rate 4 Fraction of Inspired Oxygen Intake/Output Intake/Output: Intake & Output 03/18/24 03/19/24 03/20/24 03/21/24 23:59 23:59 23:59 23:59 Intake Total 5926 790 5799 240 Output Total 800 1550 1175 800 Balance 1020 -710 -65 -560 Meds/Results Medications: Active Medications Generic Name Dose Route Start Last Admin Trade Name Freq PRN Reason Stop Dose Admin Acetaminophen 650 mg 03/16/24 17:50 03/21/24 09:31 Acetaminophen 325 Mg Tablet PO 650 mg Q4H PRN Administration Mild Pain (1-5) Or Fever Hydrocodone Bitart/Acetaminophen 1 tab 03/16/24 17:49 Hydrocodone/Acetaminophen (*Crx) 5-325 Mg Tablet PO Q6H PRN Pain Rated 6 or Greater Albuterol/Ipratropium 3 ml 03/12/24 20:15 03/15/24 12:25 Ipratropium 0.5 Mg/Albuterol Sulfate 2.5 Mg Ampul.Neb 3 Ml INHALATION 3 ml Q4H PRN Administration SHORTNESS OF BREATH Alprazolam 1 mg 03/13/24 21:00 03/20/24 21:16 Alprazolam (*Crx) 0.5 Mg Tablet PO 1 mg QHS HEIDE Administration Amoxicillin/Clavulanate Potassium 1 tablet 03/21/24 09:00 03/21/24 09:28 Amoxicillin/Clavulanate K 875-125 Mg Tab PO 03/26/24 21:01 1 tablet Q12HR HEIDE Administration Apixaban 5 mg 03/13/24 21:00 03/21/24 09:29 Apixaban 5 Mg Tablet PO 5 mg Q12HR HEIDE Administration Atorvastatin Calcium 10 mg 03/13/24 21:00 03/20/24 21:16 Atorvastatin 10 Mg Tablet PO 10 mg HS HEIDE Administration Bisacodyl 5 mg 03/12/24 20:10 03/17/24 09:01 Bisacodyl 5 Mg Tablet Ec PO 5 mg DAILY PRN Administration Constipation Clopidogrel Bisulfate 75 mg 03/13/24 09:00 03/21/24 09:29 Clopidogrel Bisulfate 75 Mg Tablet PO 75 mg DAILY HEIDE Administration Colestipol HCl 2 gm 03/13/24 09:00 03/21/24 09:28 Colestipol Hcl 1 Gm Tablet PO 2 gm DAILY HEIDE Administration Dextrose 12.5 gm 03/21/24 07:31 Dextrose 50% 25 Gm/50 Ml Syringe IV PUSH PRN PRN Hypoglycemia Protocol Diltiazem HCl 360 mg 03/13/24 09:00 03/21/24 09:28 Diltiazem Hcl Cd 180 Mg Cap.24hr PO 360 mg DAILY HEIDE Administration Empagliflozin 10 mg 03/20/24 09:00 03/21/24 09:29 Empagliflozin 10 Mg Tablet PO 10 mg DAILY HEIDE Administration Ferrous Sulfate 325 mg 03/16/24 09:00 03/21/24 09:29 Ferrous Sulfate [address] PO 325 mg DAILY HEIDE Administration Furosemide 40 mg 03/21/24 09:00 Furosemide 40 Mg Tablet PO BID HEIDE Glucagon 1 mg 03/21/24 07:31 Glucagon For Inj 1 Mg Vial IM PRN PRN Hypoglycemia Protocol Glucose 15 gm 03/21/24 07:31 Glucose Oral Gel 15 Gm Of Glucse In 37.5 Gm Tube PO PRN PRN Hypoglycemia Protocol Guaifenesin 1,200 mg 03/19/24 11:10 03/21/24 09:28 Guaifenesin 12 Hr 600 Mg Tabcr PO 1,200 mg Q12HR HEIDE Administration Dextrose 1,000 mls @ 100 mls/hr 03/21/24 07:31 Dextrose 5% 1,000 Ml IVPB PRN PRN Hypoglycemia Protocol Insulin Aspart 2 - 5 units 03/21/24 08:00 03/21/24 09:27 Insulin Aspart (*Bkc) 100 Units/Ml SUB-Q Not Given TIDWM [facility] Protocol Insulin Aspart 1 - 2 units 03/21/24 21:00 Insulin Aspart (*Bkc) 100 Units/Ml SUB-Q HS [facility] Protocol Lorazepam 0.5 mg 03/15/24 10:41 03/16/24 12:01 Lorazepam Inj (*Crx) 2 Mg/Ml Vial IV PUSH 0.5 mg Q6H PRN Administration Anxiety Sertraline HCl 200 mg 03/13/24 09:00 03/21/24 09:28 Sertraline Hcl 50 Mg Tablet PO 200 mg DAILY HEIDE Administration Sodium Chloride 1 spray 03/16/24 17:48 Saline 0.65% Teja Soln 44 Ml Btl NASAL Q6HR PRN Congestion Sodium Chloride 6 ml 03/20/24 05:00 03/21/24 06:09 Sodium Chlor 3% 15 Ml Neb (Respiratory Therapy) INHALATION 03/22/24 05:01 Not Given DAILY@0500 [facility] Umeclidinium/Vilanterol 1 puff 03/21/24 10:15 Umeclidinium/Vilanterol 62.5-25 Mcg Ellipta INHALATION DAILYRT [facility] Radiology Results: ITS Impressions Chest CTA 03/12/24 17:42 IMPRESSION: 1. No pulmonary embolism. 2. Bilateral large pleural effusion with adjacent atelectasis. 3. Mediastinal and bilateral hilar lymphadenopathy. 4. Nodule is seen in the right middle lobe and upper lobe. 6 months follow-up CT is advised. 5. Interstitial thickening in the apical areas which may indicate edema versus pneumonitis. Renal Ultrasound 03/15/24 20:32 IMPRESSION: No definite abnormal. Small simple cyst in the right kidney lower pole. Thoracentesis Ultrasound 03/19/24 12:48 IMPRESSION: 1. Successful ultrasound-guided thoracentesis yielding 300 mL of kenneth-colored fluid. Chest X-Ray 03/20/24 09:30 Impression: 1: Persistent diffuse bilateral interstitial infiltrates, most likely edema although chronic interstitial lung disease cannot be excluded. Labs Labs: Laboratory Results - last 24 hr 03/15/24 03/18/24 03/20/24 10:56 04:35 11:36 WBC RBC Hgb Hct MCV MCH MCHC RDW Plt Count MPV Immature Gran % (Auto) Neut % (Auto) Lymph % (Auto) [place] % (Auto) Eos % (Auto) Baso % (Auto) Lymph # (Auto) [place] # (Auto) Eos # (Auto) Baso # (Auto) Abs Immat Gran (auto) Absolute Neuts (auto) Absolute Nucleated RBC Nucleated RBC % Sodium Potassium Chloride Carbon Dioxide Anion Gap BUN Creatinine Estim Creat Clear Calc Estimated GFR Glucose POC Capillary Glucose 125 H Calcium Total Bilirubin AST ALT Alkaline Phosphatase Total Protein Albumin Methylmalonic Acid 366 TB Test (QFT) Gold Plus Negative TB Test (QFT) Nil 0.01 TB Test Mitogen - Nil 2.16 TB Test Ag - Nil 1 0.00 TB Test Ag - Nil 2 0.00 03/21/24 04:47 WBC 11.3 H RBC 3.49 L Hgb 9.9 L Hct 32.5 L MCV 93.1 MCH 28.4 MCHC 30.5 L RDW 15.9 H Plt Count 229 MPV 9.1 Immature Gran % (Auto) 1.0 H Neut % (Auto) 71.2 Lymph % (Auto) 18.4 [place] % (Auto) 6.1 Eos % (Auto) 3.0 Baso % (Auto) 0.3 Lymph # (Auto) 2.08 [place] # (Auto) 0.7 H Eos # (Auto) 0.3 Baso # (Auto) 0.0 Abs Immat Gran (auto) 0.11 H Absolute Neuts (auto) 8.1 H Absolute Nucleated RBC 0.000 Nucleated RBC % 0.0 Sodium 140 Potassium 3.6 Chloride 99 Carbon Dioxide 36 H Anion Gap 5 BUN 19 H Creatinine 1.30 H Estim Creat Clear Calc 28 Estimated GFR 39 L Glucose 122 H POC Capillary Glucose Calcium 8.9 Total Bilirubin 0.7 AST 35 ALT 21 Alkaline Phosphatase 73 Total Protein 7.0 Albumin 4.0 Methylmalonic Acid TB Test (QFT) Gold Plus TB Test (QFT) Nil TB Test Mitogen - Nil TB Test Ag - Nil 1 TB Test Ag - Nil 2 Quality VTE Prophylaxis VTE prophylaxis: pharmacologic ordered
[2024-03-21 11:50] LABS: Glucose Point of Care 136 mg/dl (65-105)
[2024-03-21 17:22] LABS: Glucose Point of Care 137 mg/dl (65-105)
--- NOTE | 2024-03-21 18:10 | PC.NURSE ---
This RN gave report to receiving RN, Letty. The pt transferred to second medical room 245 at 1810.
--- NOTE | 2024-03-21 18:34 | PC.NURSE ---
This patient, Maria Dolores Henry, was received from IMU on 03/21/24 at 1815. Patient/family oriented to unit policies and routines
[2024-03-21] MEDS: ALPRAZolam (*CRX) 0.5 MG TABLET 1 MG PO (20:28)
[2024-03-21] MEDS: ATORVASTATIN 10 MG TABLET PO (20:29)
[2024-03-21 22:20] LABS: Glucose Point of Care 135 mg/dl (65-105)
[2024-03-22] VITALS (10 sets, daily range): BP systolic 118; BP diastolic 51–59; PULSE 84–116; RESP 16–20; TEMP 36.3–36.7; O2SAT 88–97
[2024-03-22 06:12] LABS: Basophils Percent Auto 0.4 % (0.2-1.2); Eosinophils Absolute Auto 0.5 K/mm3 (0-0.3); Eosinophils Percent Auto 4.4 % (0-4.4); Hematocrit 32.1 % (37.0-47.0); Hemoglobin 9.4 g/dL (12.0-15.0); Immature Granulocyte Percent A 0.9 % (0-0.5); Lymphocytes Absolute Auto 1.47 K/mm3 (0.9-3.2); Lymphocytes Percent Auto 13.3 % (18.3-44.2); Mean Corpuscular HGB Conc 29.3 g/dl (32-36); Mean Corpuscular Hemoglobin 27.5 pg (26-34); Mean Corpuscular Volume 93.9 fl (80-100); Mean Platelet Volume 9.3 fl (7.4-10.4); Monocytes Absolute Auto 0.7 K/mm3 (0.1-0.6); Monocytes Percent Auto 6.4 % (2.6-8.5); Neutrophils Absolute Auto 8.2 K/mm3 (1.3-6.7); Neutrophils Percent Auto 74.6 % (45.5-73.1); Platelet Count Result 234 k/mm3 (150-375); Red Blood Count 3.42 M/mm3 (4.2-5.4); Red Cell Distribution Width 15.9 % (11.5-14.5)
[2024-03-22 06:21] LABS: Alanine Aminotransferase 20 U/L (6-35); Albumin Level 3.7 g/dL (3.5-5.1); Alkaline Phosphatase 72 U/L (38-126); Anion Gap 5 mmol/L (4-12); Aspartate Amino Transferase 30 U/L (14-36); Bilirubin,Total 0.6 mg/dL (0.2-1.3); Blood Urea Nitrogen 17 mg/dL (7-17); Carbon Dioxide 31 mmol/L (22-30); Chloride 103 mmol/L (98-107); Estimated CRCL calculation 39 ml/min; Estimated Glomerular Filt Rate 60; Glucose 126 mg/dL (65-110); Potassium 3.2 mmol/L (3.4-5.0); Sodium 139 mmol/L (137-145)
[2024-03-22 06:55] LABS: Hypochromasia 1+; Platelet Estimate Adequate (Adequate); Schistocytes None Seen
[2024-03-22 07:47] LABS: Hemoglobin A1C 6.1 % (<5.7)
[2024-03-22 08:13] LABS: Glucose Point of Care 136 mg/dl (65-105)
[2024-03-22] MEDS: UMECLIDINIUM/VILANTEROL 62.5-25 MCG ELLIPTA 1 PUFF INHALATION (09:24)
--- NOTE | 2024-03-22 09:28 | PM.PNPUL ---
Progress Note: A&P Assessment and Plan (1) Acute on chronic respiratory failure: Qualifiers: Respiratory failure complication: hypoxia Qualified Code(s): J96.21 - Acute and chronic respiratory failure with hypoxia Code(s): J96.20 - Acute and chronic respiratory failure, unspecified whether with hypoxia or hypercapnia Status: Acute Assessment and Plan: Patient with chronic hypoxemic respiratory failure on 4 L at rest, 4-5 with activity and 6 L with sleep. currently admitted with worsening acute on chronic hypoxic respiratory failure requiring BiPAP. ABG on admission 7.47/41/125 on a non-rebreather. Etiology of worsening hypoxemic respiratory failure includes fluid overload, pneumonia, COPD exacerbation, bilateral pleural effusions, positive bubble study with zeqma-fv-edgy shunt after 4-5 beats without Valsalva and after 2 beats with Valsalva with bubbles appearing to come from the pulmonary vein rather than through the atrial septum. 03/19/24: overall since admission the patient feels the same or a little bit better. she still has shortness of breath, hot feelings, sweats. She is afebrile. White blood cell count is 8.1, creatinine is 0.9. BNP is 1990 ( decreased from 2940 and 2740 on admission). When I enter the room the patient was on Airvo 60 L 91% FiO2 with saturations 95% on her right ear probe and 100% on her right hand finger probe. I changed her to 15 L nasal cannula and her right hand saturation was 95%. I decreased her to 10 L and her right hand saturation was 92-93% with a right ear probe measuring 88% and a left hand saturation measuring 91-92%. Plan: Goal saturation 90-94%. Wean oxygen accordingly. Will continue treatment for fluid overload with Bumex 2 mg IV b.i.d., Pneumonia with Zosyn day 7 and doxycycline day 5 (MRSA negative, COVID, RSV and Influenza negative, sputum for AFB and fungus pending. Respiratory pathogen panel pending). Regarding pleural effusions; chest x-ray demonstrates improved bilateral pleural effusions, the patient is scheduled for a right thoracentesis later today and will send full set of chemistries, microbiology and cytology studies. Will continue treatment for possible COPD exacerbation with prednisone 40 mg p.o. q.day. No wheezes,day 5 today and will discontinue. Continue levalbuterol and ipratropium nebulizers q.6 hours. Will continue Vest treatment, coronary flutter valve and will add guaifenesin 1200 mg p.o. b.i.d. to help with sputum expectoration. Later in the day the patient had a thoracentesis with 300 mL of kenneth fluid removed. G stain was many white blood cells, no organisms seen. PH greater than 7.50, white blood cell count 2109 with a differential neutrophils 17%, lymphocytes 32%, macrophages 38%, mesothelial cells 13%. she says her breathing immediately improved with the thoracentesis. 03/20/24: Patient slept with 10 L nasal cannula S night and said she slept well. She finished physical therapy and was walking in the room and did well. Currently she tells me she is breathing back to her baseline. She still has a cough with hemoptysis but overall is producing less phlegm. She is afebrile. White blood cell count 9.8, creatinine 1.0. When I enter the room she was on 10 L nasal cannula oxygen with saturations 99%. I decreased her to 4 L nasal cannula and after 9 minutes her saturations were 95%. chest x-ray today showed no pleural effusions, diffuse interstitial alveolar infiltrates unchanged. Her weight today is 70.4 in overall she is positive 400 mL since admission. Plan: Patient continues to improve with treatment for Fluid overload with pleural effusion, possible pneumonia and possible COPD exacerbation. Currently she Is on 4 L nasal cannula rest which is her baseline. A perform overnight oximetry on 6 L tonight. Goal saturation 90-94%, wean oxygen accordingly. 03/21/24: Overall the patient states that she slept well on nasal cannula oxygen. She denies fever, chills, rigors phlegm production or hemoptysis. She is afebrile. White blood cell count 11.3, creatinine 1.3, on 4 L nasal cannula saturations are 91%. Lasix has been held. 03/22/2024: Patient states that she is breathing at her baseline. She has no phlegm production. Minimal cough that is at her baseline. Currently she is on 4 L nasal cannula saturations 93%. She is afebrile. White blood cell count 11.0, creatinine 0.9. Weight is 70.2. Patient had an overnight oximetry on 6 L nasal cannula recording duration of 6 hours and 46 minutes, average saturation 97%, low saturation 93%. Time with saturation less than or equal to 88 was 0 minutes. Oxygen desaturation index 0.3. QuantiFERON gold negative, sputum with Lauren. From a pulmonary perspective patient can be discharged on these pulmonary medications: Augmentin 875-125 at 1 pill b.i.d. x4 days Stiolto Respimat 2.5-2.5 at 1 puff twice a day, Rescue albuterol inhaler q.4 hours p.r.n. shortness of breath and wheezing. Rescue albuterol nebulizer 2.5 mg q.4 hours p.r.n. shortness of breath or wheezing Guaifenesin 600 mg p.o. b.i.d. p.r.n.. Oxygen at rest and with activity per formal home O2 assessment which I have ordered. Oxygen 6 L NC Diuretics per hospitalist team, currently she is on 40 mg p.o. b.i.d.. The patient follows up with commutator v ring assembler at [facility], Dr. Bailey. I told the patient that she needs to weigh herself every day and that if she gains 2 lb she should call her commutator v ring assembler so that her diuretics can be adjusted. Patient to follow-up with her previously scheduled appointment in the Pulmonary Clinic on 08/20/2024. She can call the clinic for any issues as an outpatient. Discussed with Dr. Demarco, will sign off, call with questions. (2) Acute exacerbation of chronic obstructive pulmonary disease (COPD): Code(s): J44.1 - Chronic obstructive pulmonary disease with (acute) exacerbation Status: Acute Assessment and Plan: Gold grade 2 group E COPD Patient with 82.5 pack year tobacco use, quit 10/06/2022.? Alpha 1 anti trypsin genotype MM.? 07/17/2021: FEV1 is 1.25 L, 62% predicted, FEV1: FVC ratio 59%, no hyperinflation, DLCO moderately decreased at 40% and remains moderately decreased when adjusted for alveolar volume.? CT scan of the chest on 07/20/2022 shows stable pulmonary nodules with moderate apical predominant centrilobular emphysema.? She has used oxygen with exertion for about 2 years and 01/2023 admission she has been on oxygen around the clock.? Currently using 4 L nasal cannula At rest, 4-5 L with activity and 6 L at night. 01/26/23 - echo: EF 65-70%, mildly increased LV wall thickness, LV diastolic function indeterminate, mild aortic valve stenosis area 1.7, mild-mod aortic and tricuspid valve regurgitation, mild pulm HTN with RVSP 44mmHg. echo 03/22/2023 with moderate aortic stenosis with a valve area of 1.5. Echocardiogram 03/15/2024 with moderate aortic stenosis with a valve area of 1.1, moderate aortic regurgitation. RVSP 50, positive right to left bubble. Recent activity: 01/24/23 to 01/30/23, inpatient [facility]; COPD exacerbation; home for a few days, 02/05/23 to 02/14/23; entered rehab due to debilitation 02/17/23 to 02/19/23; fell and broke hip; inpatient; Ortho consult= non-surgical injury, went to rehab Feb 21, 2023 through 03/07/23 03/17/2023 through 04/12/2023:? Admitted to [facility] with COVID pneumonia and hypoxic respiratory failure requiring continuous BiPAP, high-flow nasal cannula oxygen.? Treated with remdesivir, dexamethasone and baricitinib with slow improvement. ?Mucus plugging with left upper lobe collapse and right middle lobe collapse treated with bronchodilators, dornase, Mucomyst, chest PT. Aspergillus in sputum without focal consolidations or cavities and treated with voriconazole for 14 days for colonization.? Developed acute pulmonary edema in house with re-initiation of noninvasive ventilation responded to diuretics.? Right thoracentesis with 400 mL of an exudative, neutrophilic, noninfected cytology negative effusion.? Weaned to 2 L and discharged to inpatient rehab on 04/12/2023 and discharged back to [facility] on 04/25/2023. 03/19/24: overall since admission the patient feels the same or a little bit better. she still has shortness of breath, hot feelings, sweats. She has no wheezing. Plan: Today is day 5 of prednisone and will discontinue. Continue levalbuterol and ipratropium nebulizers q.6 hours. Continue Vest therapy and Cornet flutter valve to aid expectoration. Will add guaifenesin 1200 mg p.o. b.i.d. today. 03/20/24: patient continues to improve and says she is breathing at her baseline. She still has phlegm but this has improved. Plan: Continue levalbuterol and ipratropium nebulizers q.6 hours, Vest therapy, Cornet flutter valve, guaifenesin 1200 mg p.o. b.i.d.. 03/21/24: patient continues to improve. She still has phlegm but this is minimal. Plan: I will place her on her on Anoro and discontinue levalbuterol and ipratropium nebulizers q.6 hours. Continue Vest therapy, Cornet flutter valve, guaifenesin 1200 mg p.o. b.i.d.. I will perform overnight oximetry tonight on 6 L. 03/22/24: patient states she is breathing at her baseline. Patient had an overnight oximetry on 6 L nasal cannula recording duration of 6 hours and 46 minutes, average saturation 97%, low saturation 93%. Time with saturation less than or equal to 88 was 0 minutes. Oxygen desaturation index 0.3. Plan: We will discharge her on her prior home regimen of Stiolto Respimat, rescue albuterol inhaler and neb, guaifenesin 1200 b.i.d.. (3) Pulmonary nodules: Code(s): R91.8 - Other nonspecific abnormal finding of lung field Status: Acute Assessment and Plan: CT chest 03/12/2024 compared to 03/30/2023 with 7 mm RML nodule, needs [address] chest as this has grown; the 1 cm nodule in the right apex is stable. Plan: Repeat CT scan on 09/10/2024. (4) Aortic valve stenosis: Qualifiers: Cardiac valve disease etiology: nonrheumatic Qualified Code(s): I35.0 - Nonrheumatic aortic (valve) stenosis Code(s): I35.0 - Nonrheumatic aortic (valve) stenosis Status: Acute Assessment and Plan: Echocardiogram 01/26/2022 with aortic valve area 1.7 cm, PASP 44. Echocardiogram 03/22/2023 with moderate aortic stenosis valve area 1.5 cm and mild TR with PASP 43. Echocardiogram 03/15/2024 reviewed with commutator v ring assembler and valve area is 1.1 with moderate aortic stenosis and moderate aortic regurgitation. Mildly enlarged right ventricle with normal function. Right atrium is normal. Positive right to left bubble study at 4-5 beats with no Valsalva and with 2 beats with Valsalva with bubbles appearing from the pulmonary vein rather than the septum. 03/20/24: plan: For aortic stenosis this could be contributing to patient's clinical issues and will repeat an echocardiogram in 6 months. (5) Right to left cardiovascular shunt: Status: Acute Assessment and Plan: Echocardiogram 03/15/2024 reviewed with commutator v ring assembler and aortic valve area is 1.1 with moderate aortic stenosis and moderate aortic regurgitation. Mildly enlarged right ventricle with normal function. Right atrium is normal. Positive right to left bubble study at 4-5 beats with no Valsalva and with 2 beats with Valsalva with bubbles appearing from the pulmonary vein rather than through the septum. 03/19/24: Plan: Regarding the right to left shunt which is appears to be predominantly an intrapulmonary shunt, if she does not improve with treatment for fluid overload, pneumonia, COPD will consider further assessment to determine if there is a cardiac shunt such as a PFO with ROSEMARY and or right ventricular catheterization. Echocardiographically it does not appear she has a chronic PFO as she is 78 years old making a congenital abnormality unlikely and her pulmonary hypertension has been relatively stable over the last year with normal right ventricular function. Of note, the patient is already on chronic anticoagulated for atrial fibrillation. 03/20/24: Patient's oxygenation has improved overnight and currently on 4 L at rest. Plan: Continue chronic anticoagulation with apixaban 5 mg p.o. q.12 hours. Goal saturation 90-94%. Subjective Date/time seen: 03/22/24 09:28 Interval history: new; 03/15/24; Maria Dolores Henry is 78 years old, followed by our practice, has COPD, chronic respiratory failure, uses O2 at home. She is using 4-5 L/min at rest, 6 L/min with exertion and sleep. She saw Dr Donato in the office Mar 05, and was stable according to his note. Her COPD regimen included Stiolto Respimat 2.5-2.51 puff daily and albuterol rescue inhaler 3-4 times per day, guaifenesin 600 mg every other day and Lasix 40 mg b.i.d.. She has not smoked since September of 2023. She has no secondhand tobacco exposure. She is up-to-date on all vaccinations.She was admitted to [facility] in Mar 2023 with pneumonia, pleural effusions, COVID; sputum grew out Aspergillus without focal lung consolidations or cavitations and she was treated with voriconazole for 14 days for presumed colonization Mar 2023. . She was admitted on TuesdayMar 12. She says that she has not been feeling well for a few weeks. She is up-to-date on her vaccinations influenza, RSV, COVID. on admission, the PCR for these (-). At first, her sputum was brown but now she has a barking cough, says she feels like she has a croupy cough. ABG = no CO2 retention, pH 7.47, pCO2 41, PO2 125 on 15 L non-rebreather mask.. CXR = no infiltrate, mainly effusion, CTA on March 14 shows large effusion on the right smaller effusion on the left and a 7 mm nodule in the right anterior lung. Treated with Zosyn and doxycycline, now po doxycycline. She has a higher O2 requirement today, up to 15 L /min. She has no fever, no sputum now. Her echo 03/13 shows a right to left shunt. not sure how significant this is, but shunts cause hypoxemia. WBC = 7.1 Mar 12, now 7.4k; D-Dimer 2.67. Negative troponin. BNP 2940. Mar 15 CXR = more pulmonary edema, right pleural effusion, no infiltrate. WBC is stable, 7.4k. She was given Lasix 80mg IV and Duoneb in the ED Suspect CHF exacerbation and related to pleural effusions. Can not exclude PNA. 03/17: The patient is on much higher amounts of O2. Used CPAP overnight, today used non-rebreather,, now on high flow nasal cannula. Saturation is 90-91% using 60 L/min and FiO2 90%. this is the highest amount of O2 she has been on this admission. A year ago, she had COVID, low O2 saturation, also had a thoracentesis, grew Aspergillus on sputum, was treated with voriconazole x 14 days. 03/18: Still on Air Vo 60L & 90%, improved saturation, 95%. sometimes, her saturaiotn drops into the 70s. Resp rate 20-24, no fever. CXR last night showed some improvement. She had Dornase adrian mucolytic, was fitted for the vibratory vest, and is using Cornet bonnie. She has expectorated sputum in a container by the bed, reddish liquid with dark plugs, consistent with Aspergillus. She notes that she feels very similar to how she felt last March, when she had Aspergillus in her sputum. Procalcitonin Dec 6 was 0.6, normal. This is not consistent with bacterial infection. K+ 2.8 today, replaced. 03/19/24: overall Since admission the patient feels the same or a little bit better. she still has shortness of breath, hot feelings, sweats. She is afebrile. White blood cell count is 8.1, creatinine is 0.9. BNP is 1990 ( decreased from 2940 and 2740 on admission). When I enter the room the patient was on Airvo 60 L 91% FiO2 with saturations 95% on her right ear probe and 100% on her right hand finger probe. I changed her to 15 L nasal cannula and her right hand saturation was 95%. I decreased her to 10 L and her right hand saturation was 92-93% with a right ear probe measuring 88% and a left hand saturation measuring 91-92%. Later in the day the patient had a thoracentesis with 300 mL of kenneth fluid removed. G stain was many white blood cells, no organisms seen. PH greater than 7.50, white blood cell count 2109 with a differential neutrophils 17%, lymphocytes 32%, macrophages 38%, mesothelial cells 13%. 03/20/24: Patient slept with 10 L nasal cannula S night and said she slept well. She finished physical therapy and was walking in the room and did well. When I enter the room she was on 10 L nasal cannula oxygen with saturations 99%. I decreased her to 4 L nasal cannula and after 9 minutes her saturations were 95%. chest x-ray today showed no pleural effusions, diffuse interstitial alveolar infiltrates unchanged. Her weight today is 70.4 in overall she is positive 400 mL since admission. 03/21/24: Overall the patient states that she slept well on nasal cannula oxygen. She denies fever, chills, rigors phlegm production or hemoptysis. She is afebrile. White blood cell count 11.3, creatinine 1.3, on 4 L nasal cannula saturations are 91%. Lasix has been held. 03/22/2024: Patient states that she is breathing at her baseline. She has no phlegm production. Minimal cough that is at her baseline. Currently she is on 4 L nasal cannula saturations 93%. She is afebrile. White blood cell count 11.0, creatinine 0.9. Weight is 70.2. Patient had an overnight oximetry on 6 L nasal cannula recording duration of 6 hours and 46 minutes, average saturation 97%, low saturation 93%. Time with saturation less than or equal to 88 was 0 minutes. Oxygen desaturation index 0.3. QuantiFERON gold negative, sputum with Lauren. DATA: * 03/17/24; CXR; Airspace opacities in the lower lung zones with interval improvement, consistent with atelectasis versus pneumonia. 2. Mild pulmonary edema. 3. Cardiomegaly. * 03/12/2024 CXR; There is a diffuse interstitial pattern in the lungs, consistent with pulmonary edema. There is mild atelectasis at the lung bases. There are small pleural effusions. No pneumothorax. Cardiomegaly is noted. IMPRESSION: 1. Mild pulmonary edema. 2. Small pleural effusions. 3. Cardiomegaly. * 03/13/24 chest CTA - Nodule is seen in the right middle lobe measuring 7 mm. 6 months follow-up advised. This nodule is larger than the previous study. Interstitial thickening is seen in the apical area which may indicate pneumonitis versus edema. Minimal atelectatic changes seen in the middle lobe. Nodule is seen in the right apical area measuring 1 cm. No pulmonary masses. No pneumothorax. Bilateral large pleural effusion with adjacent atelectasis seen. . VISUALIZED UPPER ABDOMEN: Status post cholecystectomy. small left kidney cyst. Possible left kidney lower pole a stone. Otherwise, the visualized upper abdomen is normal. MUSCULOSKELETAL: Soft tissues: The superficial soft tissues are normal. Bones: Age appropriate degenerative changes of the spine. Old compression fracture is seen in T7. IMPRESSION: 1. No pulmonary embolism. 2. Bilateral large pleural effusion with adjacent atelectasis. 3. Mediastinal and bilateral hilar lymphadenopathy. 4. Nodule is seen in the right middle lobe and upper lobe. 6 months follow-up CT is advised. 5. Interstitial thickening in the apical areas which may indicate edema versus pneumonitis. * 03/13/24 = EchoThere is oskky-ni-ontl shunt evidenced by the positive agitated saline study. 2. The left ventricle is normal in size and systolic function. The left ventricular ejection fraction is visually estimated to be 50-55%. 3. The right ventricle is mildly dilated with preserved systolic function. 4. The aortic valve is trileaflet and heavily calcified. There is moderate aortic stenosis with a valve area of 1.1 cm2. There is moderate aortic regurgitation. 11/04/2023: Polysomnogram Periodic Limb Movements The patient had 87 isolated limb movements with an index of 14.1. The patient had 215 periodic limb movements with an index of 34.9, which is elevated (normal <15). Patient had a total of 302 limb movements with a total limb movement index of 49.0. Assessment and plan: (1) Nocturnal hypoxemia: The patient had an overall AHI of 2.1 with desaturation down to 77%. This is not consistent with sleep-disordered breathing. The patient had persistent hypoxemia in the absence of respiratory events. Supplemental oxygen was started at 1 lpm of O2 and titrated to 3.5 lpm of O2. The patient oxygen saturation was unable to remain above 90% on the final oxygen settings. I recommend that the patient use 4 lpm of supplemental oxygen with sleep. I recommend that she have a nocturnal oximetry done 2 weeks after implementing the recommended oxygen settings to ensure that her oxygen saturation remains above 90%. (2) PLMD (periodic limb movement disorder): The patient had a significant number of limb movements during the study with the majority being periodic in nature. Approximately 25% of the periodic limb movements caused arousals during sleep. The patient's sleep history does not suggest Restless Leg Syndrome. I recommend that the patient have a serum ferritin drawn for evaluation of iron deficiency anemia. If the patient has a serum ferritin less than 75 ng/mL, I recommend starting a daily iron supplement and a Vitamin C supplement for better absorption. If the serum ferritin is greater than 75 ng/mL, I recommend starting a dopamine agonist and titrating the dose until symptoms resolve. There are nonpharmacological methods to treat limb movements including daily exercise, stretching calf muscles before bed, avoiding excessive amounts of caffeine and alcohol, vitamin B supplementation, magnesium lotion massaged into legs before bed, and use of a weighted blanket. I will order ferritin blood test. 10/25/2023: Overnight oximetry on 6 L nasal cannula. The family was present for this test and confirmed the patient was on 6 L, and that she wore the 6 L all night. Recording duration 9 hours and 57 minutes. Basal saturation 94.6%. High saturation 99%. Low saturation 82%. Time with saturation less than or equal to 88% was 2 minutes and 26 seconds. Oxygen desaturation index was 7. I will continue 6 L nasal cannula at night. 07/06/2023 (results received from [facility] on 08/25/23):? Overnight oximetry on 5 L nasal cannula.? Recording duration 9 hours and 35 minutes.? Basal saturation 86.6%.? High saturation 98%.? Low saturation 65%.? Time with saturation less than or equal to 88% was 4 hours and 28 minutes.? Oxygen desaturation index is 20. unsure if patient was wearing oxygen and at what level, repeat ordered on 5 L 05/13/2023: Home O2 assessment:? Rest room air saturation 86%.? Rest nasal cannula 1 L saturation 88%.? Rest nasal cannula 2 L saturation 90%.? Exercise nasal cannula 2 L saturation 88%.? Exercise nasal cannula 3 L saturation 90%. ?Requires 2 L with rest and 3 with activity 03/12/30 EXAMINATION: XR chest 1V portable ??INDICATION: Pleural effusions. ??COMPARISON: Chest single view 04/08/2023, chest CT 03/30/2023 ??FINDINGS: There is a diffuse interstitial pattern in the lungs. There are airspace opacities in right mid and lower lung zones and left lower lung zone. There are small pleural effusions. No pneumothorax. Cardiomegaly is noted. ??IMPRESSION: ??1. Stable diffuse lung disease, consistent with pulmonary edema versus pneumonia. ??2. Stable small pleural effusions. ??3. Cardiomegaly. ?03/23/23: EXAMINATION: CTA chest PE protocol ??DATE: 03/23/2023 14:04 ??INDICATION: SOB ??COMPARISON: 07/20/2022 ??FINDINGS: The pulmonary arteries are well-opacified. No pulmonary embolism is identified. There are moderate-sized right and small left pleural effusions. There is complete left upper lobe collapse due to mucous plugging. There is also complete atelectasis of the right middle lobe. There is intralobular septal thickening with groundglass opacity with a right lung predominance. There is dependent atelectasis of the left lower lobe. There is a right breast implant. There is mild bilateral hilar and mediastinal lymphadenopathy, likely reactive. No pneumothorax is identified. Punctate calcifications in an otherwise normal spleen likely represent healed granulomatous disease. Changes of cholecystectomy are noted. There is moderate thoracic spondylosis. A chronic T8 compression fracture is noted. ??IMPRESSION: ??1. No pulmonary embolus. ??2. Left upper lobe collapse related to mucous plugging ??3. Complete atelectasis of the right middle lobe. ??4. Moderate size right and small left pleural effusions. ??5. Findings consistent with asymmetric edema of the right upper lobe. ?03/30/[address] Mild pulmonary edema. ??2. Mild atelectasis in the lungs with interval improvement. ??3. Moderate emphysema. ??4. Small pleural effusions. ?03/22/23 Echo Summary ??? 1. Complete two-dimensional, color flow and Doppler transthoracic ??echocardiogram is performed. ??? 2. Severe pulmonary artery enlargement. ??? 3. Left ventricular chamber dimension is normal. ??? 4. Left ventricular systolic function is normal, estimated at 60-65%. ??? 5. There is mildly increased left ventricular wall thickness. ??? 6. The left ventricular diastolic function is grade II diastolic ??dysfunction. ??? 7. The basal inferior wall is akinetic. ??? 8. Left atrial chamber dimension is moderately enlarged. ??? 9. Right atrial chamber dimension is mildly enlarged. ??? 10. Right ventricular chamber dimension is mildly enlarged. ??? 11. There is moderate aortic valve stenosis with a peak velocity of 224 ??cm/s, mean gradient of 11 mmHg, and aortic valve area of 1.5 cm2. ??? 12. There is moderate aortic valve regurgitation. ??? 13. There is moderate aortic valve calcification. ?? 14. The mitral valve annulus is mildly calcified. ??? 15. There is moderate mitral valve regurgitation. ??? 16. There is mild tricuspid valve regurgitation. ??? 17. Mild pulmonary hypertension, estimated pulmonary arterial systolic ??pressure is 43 mmHg. ??? 18. There is mild pulmonic regurgitation. ??Right Ventricle ??? Right ventricular chamber dimension is mildly enlarged. ??? Right ventricular systolic function is normal. ??Right Atria ??? Right atrial chamber dimension is mildly enlarged. ?? * 03/17/23 CXR compared to 01/24 CXR with intervall progression of bilateral airspace disease which may represent edema and/or pneumonia. ??document embedded image ??* 01/26/23 - echo: EF 65-70%, mildly increased LV wall thickness, LV diastolic function indeterminate, mild aortic valve stenosis with valve area 1.7 cm2, , mild-mod aortic and tricuspid valve regurgitation, mild pulmHTN RVSP 44mmHg. ??* 07/20/[address] - Stable pulmonary nodules, likely benign. Moderate emphysema. ??* 12/16/21 Home O2 Eval - need for 2L O2 with activity, none at rest. ??* 01/26/22: Overnight oximetry - 324 min spent below 88% saturation. ? ?07/17/2021 PFTs ?The test was performed and results interpreted in accordance with the 2019 and 2005 ATS/ERS Task Force guidelines respectively using the Global Lung Function Initiative-2012 reference equations. Patient demonstrated good effort and cooperation. Reproducibility criteria were met. The quality of the spirometry maneuver was Grade A.? Of note the patient had persistent coughing throughout the test. ?Findings: ?Spirometry:? There is decreased maximal expiratory airflow at all lung volumes with a concave expiratory flow tracing.? The contour the inspiratory flow tracing is normal.? The FVC is 2.13 L, 81% predicted.? The FEV1 is 1.25 L, 62% predicted.? The FEV1:? FVC ratio is 59%. ?Plethysmography:? The total lung capacity is 5.70 L, 112% predicted.? The functional residual capacity is 4.32 L, 148% predicted.? The residual volume is 3.04 L, 130% predicted.? ?Diffusing capacity:? The diffusing capacity unadjusted for hemoglobin and carboxyhemoglobin is 8.0, 40% predicted.? The diffusing capacity adjusted for alveolar volume is 2.26, 54% predicted. ?Impression: There is a moderate obstructive abnormality. Hyperinflation is present is demonstrated by the increase in functional residual capacity and is consistent with an obstructive abnormality. The diffusing capacity unadjusted for hemoglobin is moderately decreased and normalizes when adjusted for alveolar volume. ?There are no prior studies for comparison ? ??* 05/25/22 : Overnight oximetry on 2.5L O2 - 13min spent below 88% but looks likely artifact. She continued 2.5L. ??* 07/26/20 - Chest CT:? mild to moderate emphysema. 6 mm right middle lobe nodule along a band of linear discoid atelectasis/scarring. ??* Alpha 1 MM normal. Review of Systems Review of Systems: Eating adeuqalty, slept better not on CPAP last night, continued to use high flow O2 All systems reviewed & are unremarkable except as noted in HPI and below Constitutional: Constitutional: Reports no additional constitutional complaints Eyes: Eyes: Reports no additional eye complaints ENT: Reports system reviewed and no additional complaints, except as documented Cardiovascular: Cardiovascular: Reports no additional cardiovascular complaints Respiratory: Respiratory: Reports no additional respiratory complaints Gastrointestinal: Gastrointestinal: Reports no additional gastrointestinal complaints Musculoskeletal: Musculoskeletal: Reports no additional musculoskeletal complaints Neurologic: Reports system reviewed and no additional complaints, except as documented Psychiatric: Psychiatric: Reports no additional psychiatric complaints Endocrine: Endocrine: Reports no additional endocrine complaints Hematologic/Lymphatic: Hematologic/Lymphatic: Reports no additional hematologic/lymphatic complaints Allergic/Immunologic: Allergic/Immunologic: Reports no additional allergic/immunologic complaints Exam Const: General: cooperative and comfortable Orientation/consciousness: oriented to person, oriented to place and oriented to time HENMT: Head: normal to inspection Ears: hearing grossly normal bilaterally Eyes: General: appearance normal, both eyes and all related structures Neck: Neck: normal visual inspection Chest: Chest palpation & inspection: normal inspection of the chest Resp: Effort & Inspection: normal respiratory effort and able to speak in complete sentences Auscultation: crackles, no rales, no rhonchi, no wheezes and lung sounds not diminished Cardio: Jugular venous distension: no JVD GI: Inspection: normal to inspection Skin: General skin exam: normal color Neuro: General: oriented to person, oriented to place and oriented to time Extrem: General: normal to inspection and no edema Psych: Appearance: grossly normal Objective Data Vital Signs Vital Signs: Vital Signs - 24 hr 03/21/24 10:00 03/21/24 10:17 03/21/24 11:26 Temperature 36.3 C L Pulse Rate 115 H 98 Respiratory Rate 20 Blood Pressure 97/48 L Pulse Oximetry 95 97 Oxygen Delivery Nasal Cannula Oxygen Flow Rate 6 03/21/24 12:00 03/21/24 12:00 03/21/24 16:00 Temperature 36.6 C Pulse Rate 116 H 114 H Respiratory Rate 18 Blood Pressure 125/41 L Pulse Oximetry 97 100 Oxygen Delivery High Flow Nasal Cannula Oxygen Flow Rate 5 03/21/24 16:00 03/21/24 20:00 03/21/24 20:00 Temperature Pulse Rate 89 86 Respiratory Rate Blood Pressure Pulse Oximetry 93 Oxygen Delivery High Flow Nasal Cannula Oxygen Flow Rate 4 03/21/24 21:35 03/22/24 00:00 03/22/24 04:00 Temperature 36.4 C Pulse Rate 68 84 86 Respiratory Rate 16 Blood Pressure 128/62 Pulse Oximetry 92 Oxygen Delivery Oxygen Flow Rate 03/22/24 05:49 03/22/24 08:10 Temperature 36.7 C 36.3 C L Pulse Rate 84 85 Respiratory Rate 16 20 Blood Pressure 118/51 L 118/59 L Pulse Oximetry 97 96 Oxygen Delivery Oxygen Flow Rate Intake/Output Intake/Output: Intake & Output 03/19/24 03/20/24 03/21/24 03/22/24 23:59 23:59 23:59 23:59 Intake Total 840 1110 1870 400 Output Total 1550 1175 800 Balance -710 -65 1070 400 Meds/Results Medications: Active Medications Generic Name Dose Route Start Last Admin Trade Name Freq PRN Reason Stop Dose Admin Acetaminophen 650 mg 03/16/24 17:50 03/21/24 09:31 Acetaminophen 325 Mg Tablet PO 650 mg Q4H PRN Administration Mild Pain (1-5) Or Fever Hydrocodone Bitart/Acetaminophen 1 tab 03/16/24 17:49 Hydrocodone/Acetaminophen (*Crx) 5-325 Mg Tablet PO Q6H PRN Pain Rated 6 or Greater Albuterol/Ipratropium 3 ml 03/12/24 20:15 03/15/24 12:25 Ipratropium 0.5 Mg/Albuterol Sulfate 2.5 Mg Ampul.Neb 3 Ml INHALATION 3 ml Q4H PRN Administration SHORTNESS OF BREATH Alprazolam 1 mg 03/13/24 21:00 03/21/24 20:28 Alprazolam (*Crx) 0.5 Mg Tablet PO 1 mg QHS HEIDE Administration Amoxicillin/Clavulanate Potassium 1 tablet 03/21/24 09:00 03/21/24 20:28 Amoxicillin/Clavulanate K 875-125 Mg Tab PO 03/26/24 21:01 1 tablet Q12HR HEIDE Administration Apixaban 5 mg 03/13/24 21:00 03/21/24 20:28 Apixaban 5 Mg Tablet PO 5 mg Q12HR HEIDE Administration Atorvastatin Calcium 10 mg 03/13/24 21:00 03/21/24 20:29 Atorvastatin 10 Mg Tablet PO 10 mg HS HEIDE Administration Bisacodyl 5 mg 03/12/24 20:10 03/17/24 09:01 Bisacodyl 5 Mg Tablet Ec PO 5 mg DAILY PRN Administration Constipation Clopidogrel Bisulfate 75 mg 03/13/24 09:00 03/21/24 09:29 Clopidogrel Bisulfate 75 Mg Tablet PO 75 mg DAILY HEIDE Administration Colestipol HCl 2 gm 03/13/24 09:00 03/21/24 09:28 Colestipol Hcl 1 Gm Tablet PO 2 gm DAILY HEIDE Administration Dextrose 12.5 gm 03/21/24 07:31 Dextrose 50% 25 Gm/50 Ml Syringe IV PUSH PRN PRN Hypoglycemia Protocol Diltiazem HCl 360 mg 03/13/24 09:00 03/21/24 09:28 Diltiazem Hcl Cd 180 Mg Cap.24hr PO 360 mg DAILY HEIDE Administration Empagliflozin 10 mg 03/20/24 09:00 03/21/24 09:29 Empagliflozin 10 Mg Tablet PO 10 mg DAILY HEIDE Administration Ferrous Sulfate 325 mg 03/16/24 09:00 03/21/24 09:29 Ferrous Sulfate [address] PO 325 mg DAILY HEIDE Administration Furosemide 40 mg 03/21/24 09:00 Furosemide 40 Mg Tablet PO BID HEIDE Glucagon 1 mg 03/21/24 07:31 Glucagon For Inj 1 Mg Vial IM PRN PRN Hypoglycemia Protocol Glucose 15 gm 03/21/24 07:31 Glucose Oral Gel 15 Gm Of Glucse In 37.5 Gm Tube PO PRN PRN Hypoglycemia Protocol Guaifenesin 1,200 mg 03/19/24 11:10 03/21/24 20:29 Guaifenesin 12 Hr 600 Mg Tabcr PO 1,200 mg Q12HR HEIDE Administration Dextrose 1,000 mls @ 100 mls/hr 03/21/24 07:31 Dextrose 5% 1,000 Ml IVPB PRN PRN Hypoglycemia Protocol Insulin Aspart 2 - 5 units 03/21/24 08:00 03/21/24 17:47 Insulin Aspart (*Bkc) 100 Units/Ml SUB-Q Not Given TIDWM HEIDE Protocol Insulin Aspart 1 - 2 units 03/21/24 21:00 03/21/24 21:51 Insulin Aspart (*Bkc) 100 Units/Ml SUB-Q Not Given HS HEIDE Protocol Lorazepam 0.5 mg 03/15/24 10:41 03/16/24 12:01 Lorazepam Inj (*Crx) 2 Mg/Ml Vial IV PUSH 0.5 mg Q6H PRN Administration Anxiety Sertraline HCl 200 mg 03/13/24 09:00 03/21/24 09:28 Sertraline Hcl 50 Mg Tablet PO 200 mg DAILY HEIDE Administration Sodium Chloride 1 spray 03/16/24 17:48 Saline 0.65% Teja Soln 44 Ml Btl NASAL Q6HR PRN Congestion Umeclidinium/Vilanterol 1 puff 03/21/24 10:15 03/22/24 09:24 Umeclidinium/Vilanterol 62.5-25 Mcg Ellipta INHALATION 1 puff DAILYRT HEIDE Administration Radiology Results: ITS Impressions Chest CTA 03/12/24 17:42 IMPRESSION: 1. No pulmonary embolism. 2. Bilateral large pleural effusion with adjacent atelectasis. 3. Mediastinal and bilateral hilar lymphadenopathy. 4. Nodule is seen in the right middle lobe and upper lobe. 6 months follow-up CT is advised. 5. Interstitial thickening in the apical areas which may indicate edema versus pneumonitis. Renal Ultrasound 03/15/24 20:32 IMPRESSION: No definite abnormal. Small simple cyst in the right kidney lower pole. Thoracentesis Ultrasound 03/19/24 12:48 IMPRESSION: 1. Successful ultrasound-guided thoracentesis yielding 300 mL of kenneth-colored fluid. Chest X-Ray 03/20/24 09:30 Impression: 1: Persistent diffuse bilateral interstitial infiltrates, most likely edema although chronic interstitial lung disease cannot be excluded. Labs Labs: Laboratory Results - last 24 hr 03/21/24 03/21/24 03/21/24 11:48 16:47 21:41 WBC RBC Hgb Hct MCV MCH MCHC RDW Plt Count MPV Immature Gran % (Auto) Neut % (Auto) Lymph % (Auto) [place] % (Auto) Eos % (Auto) Baso % (Auto) Lymph # (Auto) [place] # (Auto) Eos # (Auto) Baso # (Auto) Abs Immat Gran (auto) Absolute Neuts (auto) Absolute Nucleated RBC Nucleated RBC % Platelet Estimate Hypochromasia Schistocytes Sodium Potassium Chloride Carbon Dioxide Anion Gap BUN Creatinine Estim Creat Clear Calc Estimated GFR Glucose POC Capillary Glucose 136 H 137 H 135 H Hemoglobin A1c Calcium Total Bilirubin AST ALT Alkaline Phosphatase Total Protein Albumin 03/22/24 03/22/24 05:27 08:05 WBC 11.0 H RBC 3.42 L Hgb 9.4 L Hct 32.1 L MCV 93.9 MCH 27.5 MCHC 29.3 L RDW 15.9 H Plt Count 234 MPV 9.3 Immature Gran % (Auto) 0.9 H Neut % (Auto) 74.6 H Lymph % (Auto) 13.3 L [place] % (Auto) 6.4 Eos % (Auto) 4.4 Baso % (Auto) 0.4 Lymph # (Auto) 1.47 [place] # (Auto) 0.7 H Eos # (Auto) 0.5 H Baso # (Auto) 0.0 Abs Immat Gran (auto) 0.10 H Absolute Neuts (auto) 8.2 H Absolute Nucleated RBC 0.000 Nucleated RBC % 0.0 Platelet Estimate Adequate Hypochromasia 1+ Schistocytes None seen Sodium 139 Potassium 3.2 L Chloride 103 Carbon Dioxide 31 H Anion Gap 5 BUN 17 Creatinine 0.90 Estim Creat Clear Calc 39 Estimated GFR 60 Glucose 126 H POC Capillary Glucose 136 H Hemoglobin A1c 6.1 H Calcium 9.0 Total Bilirubin 0.6 AST 30 ALT 20 Alkaline Phosphatase 72 Total Protein 7.0 Albumin 3.7
[2024-03-22] MEDS: SERTRALINE HCL 50 MG TABLET 200 MG PO (09:42)
[2024-03-22] MEDS: CLOPIDOGREL BISULFATE 75 MG TABLET PO (09:43)
[2024-03-22] MEDS: FERROUS SULFATE 325 MG TABLET DR PO (09:43)
[2024-03-22] MEDS: guaiFENesin 12 HR 600 MG TABCR 1200 MG PO (09:43)
[2024-03-22] MEDS: EMPAGLIFLOZIN 10 MG TABLET PO (09:43)
[2024-03-22] MEDS: dilTIAZem HCL CD 180 MG CAP.24HR 360 MG PO (09:43)
[2024-03-22] MEDS: COLESTIPOL HCL 1 GM TABLET 2 GM PO (09:43)
[2024-03-22] MEDS: APIXABAN 5 MG TABLET PO (09:43)
[2024-03-22] MEDS: AMOXICILLIN/CLAVULANATE K 875-125 MG TAB 1 TABLET PO (09:43)
--- NOTE | 2024-03-22 10:49 | HOMEO2EVAL ---
Evaluation was performed at [facility] Home Oxygen Evaluation RC: Home Oxygen (O2) Evaluation Start: 03/22/24 09:24 Freq: ONCE Status: Active Protocol: RPE Activity Type Activity Date Activity User E-sign Co-sign Detail Recorded Client Recorded Date Recorded By Document 03/22/24 10:15 [email or web address] [email or web address] 03/22/24 10:49 DJO Document 03/22/24 10:20 [email or web address] 03/22/24 10:49 DJO Document 03/22/24 10:25 [email or web address] [email or web address] 03/22/24 10:49 DJO Document 03/22/24 10:45 [email or web address] [email or web address] 03/22/24 10:49 DJO 03/22/24 03/22/24 03/22/24 10:15 10:20 10:25 Home O2 Evaluation [Oxygen] -Test Phase Resting Resting Exercise -Oxygen Delivery Nasal Cannula Nasal Cannula Nasal Cannula -Oxygen Flow Rate (L/min) 3 4 4 [Pulse Oximetry] -Pulse Oximetry (90-100 %) 88 L 92 90 [Pulse Rate] -Pulse Rate (60-100 beats/min) 90 86 109 H [Evaluation] -Activity Tolerance Fair [Charges] -Evaluation Charges O2 Evaluation by Pulmonary 03/22/24 10:45 Home O2 Evaluation [Oxygen] -Test Phase Resting -Oxygen Delivery Nasal Cannula -Oxygen Flow Rate (L/min) 4 [Pulse Oximetry] -Pulse Oximetry (90-100 %) 91 [Pulse Rate] -Pulse Rate (60-100 beats/min) 88 [Evaluation] -Activity Tolerance [Charges] -Evaluation Charges
--- NOTE | 2024-03-22 10:49 | PCRTNOTE ---
HOME O2 EVAL COMPLETE, NO CHANGES FROM HOME SETTING. 4L REST AND ACTVITY, 6L NOC BLEED IN. FAMILY TO BRING IN INOGEN FOR DISCHARGE
--- NOTE | 2024-03-22 11:28 | P.DS_ITS ---
DS: Admitting Diagnosis Discharge Date 03/22/24 Admitting Diagnosis Acute on Chronic Resp Failure DS: Discharge Diagnosis Discharge Diagnosis (1) Right to left cardiovascular shunt: Status: Acute (2) History of tobacco abuse: Code(s): Z87.891 - Personal history of nicotine dependence Status: Acute (3) Pulmonary nodules: Code(s): R91.8 - Other nonspecific abnormal finding of lung field Status: Acute (4) CHF (congestive heart failure): Code(s): I50.9 - Heart failure, unspecified Status: Acute (5) Atrial fibrillation: Code(s): I48.91 - Unspecified atrial fibrillation Status: Chronic (6) Acute on chronic respiratory failure: Qualifiers: Respiratory failure complication: hypoxia Qualified Code(s): J96.21 - Acute and chronic respiratory failure with hypoxia Code(s): J96.20 - Acute and chronic respiratory failure, unspecified whether with hypoxia or hypercapnia Status: Acute DS: Summary Hospital Course Reason for hospitalization: Acute on chronic respiratory failure Hospital Course: 78-year-old female with past medical history of chronic respiratory failure, on home O2, coronary artery disease status post PCI, atrial fibrillation presented with worsening shortness of breath. Influenza a, B were negative along with COVID on admission. CT chest done on admission showed Bilateral large pleural effusion with adjacent atelectasis. Pulmonary was consulted. Treated with Zosyn, doxycycline while in the hospital, was transitioned to Augmentin to complete course before discharge. Received IV diuresis with Lasix as well. Patient was treated with bronchodilators as well. Patient will have outpatient follow-up with Pulmonary. Patient requires 4 L of oxygen during the day, 6 L at night. Patient is being discharged home/assisted living with home health Status at Discharge Overall status at discharge: patient is progressing back to baseline Time Spent with Patient Time attestation: Total time spent providing and/or coordinating discharge services: Time spent: Greater than 30 minutes Exam Narrative: Gen -no acute distress, resting in bed comfortably Chest - scattered rhonchi but overall improved air exchange. CV - irregularly irregular. Abd - Soft, NT/ND, Positive BS Ext - No pedal edema Psych - Nml mood and affect Skin - Warm and dry DS: Data Data Completed and Pending Pending studies at discharge: Pending at discharge 03/13/24 13:36 Cytology [PTH] Routine 03/18/24 17:46 Cytology [PTH] Routine 03/19/24 17:36 Cytology [PTH] Routine Labs on day of discharge: Labs from last 24 hours 03/22/24 03/22/24 03/21/24 08:05 05:27 21:41 WBC 11.0 H RBC 3.42 L Hgb 9.4 L Hct 32.1 L MCV 93.9 MCH 27.5 MCHC 29.3 L RDW 15.9 H Plt Count 234 MPV 9.3 Immature Gran % (Auto) 0.9 H Neut % (Auto) 74.6 H Lymph % (Auto) 13.3 L Garvin % (Auto) 6.4 Eos % (Auto) 4.4 Baso % (Auto) 0.4 Lymph # (Auto) 1.47 Garvin # (Auto) 0.7 H Eos # (Auto) 0.5 H Baso # (Auto) 0.0 Abs Immat Gran (auto) 0.10 H Absolute Neuts (auto) 8.2 H Absolute Nucleated RBC 0.000 Nucleated RBC % 0.0 Platelet Estimate Adequate Hypochromasia 1+ Schistocytes None seen Sodium 139 Potassium 3.2 L Chloride 103 Carbon Dioxide 31 H Anion Gap 5 BUN 17 Creatinine 0.90 Estim Creat Clear Calc 39 Estimated GFR 60 Glucose 126 H POC Capillary Glucose 136 H 135 H Hemoglobin A1c 6.1 H Calcium 9.0 Total Bilirubin 0.6 AST 30 ALT 20 Alkaline Phosphatase 72 Total Protein 7.0 Albumin 3.7 03/21/24 03/21/24 16:47 11:48 WBC RBC Hgb Hct MCV MCH MCHC RDW Plt Count MPV Immature Gran % (Auto) Neut % (Auto) Lymph % (Auto) Garvin % (Auto) Eos % (Auto) Baso % (Auto) Lymph # (Auto) Garvin # (Auto) Eos # (Auto) Baso # (Auto) Abs Immat Gran (auto) Absolute Neuts (auto) Absolute Nucleated RBC Nucleated RBC % Platelet Estimate Hypochromasia Schistocytes Sodium Potassium Chloride Carbon Dioxide Anion Gap BUN Creatinine Estim Creat Clear Calc Estimated GFR Glucose POC Capillary Glucose 137 H 136 H Hemoglobin A1c Calcium Total Bilirubin AST ALT Alkaline Phosphatase Total Protein Albumin Preliminary micro results at discharge 03/19/24 12:20 Anaerobic Culture - Preliminary Pleural Fluid Aerobic Culture - Preliminary Fungal Culture - Preliminary 03/19/24 11:51 Acid Fast Bacilli Culture - Preliminary Sputum 03/18/24 11:34 Fungal Culture - Preliminary Sputum Lauren albicans 03/19/24 12:20 Acid Fast Bacilli Culture - Preliminary Pleural Fluid 03/18/24 14:03 Acid Fast Bacilli Culture - Preliminary Sputum Discharge Plan Discharge Attending physician on discharge: Karen Demarco Consulting providers: Sunshine Liz Discharging Clinician: Karen Demarco Anticipated Discharge Date/Time: 03/22/24 11:22 Patient Disposition: Home Health Service Activity: as tolerated Diet: heart healthy Discharge Instructions: Per Care Coordination. Patient to have [facility] for RN/PT/OT eval and treat [phone]. RN please fax discharge instructions to: [phone] Patient Instructions: Antibiotic Form, Apixaban (By mouth), Heart Failure (GEN), Pain Management (DC) Patient Language: Slovak Stand Alone Forms: General Discharge Information Follow-up/Referrals: Adis Hurd DO [Primary Care Provider] - 2 Weeks Discharge Medications: New ferrous sulfate 325 mg (65 mg iron) Tablet,Delayed Release (Dr/Ec) 325 mg PO DAILY Qty: 30 0RF Jardiance 10 mg Tablet 10 mg PO DAILY Qty: 30 0RF furosemide 40 mg Tablet 40 mg PO BID Qty: 60 0RF amoxicillin-pot clavulanate 875-125 mg tablet 1 tablet PO Q12H Qty: 8 0RF Stiolto Respimat 2.5-2.5 mcg/actuation mist 1 puff inhalation BID 30 Days Qty: 4 1RF guaifenesin 600 mg tablet extended release 12hr 600 mg PO Q12H PRN (Reason: cough) Qty: 20 0RF Continued clopidogrel 75 mg tablet 75 mg PO DAILY diltiazem HCl 240 mg capsule,extended release 24hr 360 mg PO DAILY Eliquis 5 mg tablet 5 mg PO BID albuterol sulfate 90 mcg/actuation HFA aerosol inhaler 2 puff inhalation Q4H PRN (Reason: Shortness Of Breath Or Wheezing) Rx Instructions: USE 2 INHALATIONS EVERY 4 TO 6 HOURS NEEDED FOR SHORTNESS OF BREATH OR WHEEZING ipratropium-albuterol 0.5 mg-3 mg(2.5 mg base)/3 mL Solution For Nebulization 3 ml INHALATION Q6H colestipol 1 gram tablet 2 g PO DAILY atorvastatin 10 mg Tablet 10 mg PO HS hydrocodone-acetaminophen 5-325 mg Tablet 1 tablet PO Q6H PRN (Reason: Pain) sertraline 100 mg tablet 200 mg PO DAILY Qty: 180 2RF alprazolam [Xanax] 1 mg tablet 1 mg PO QHS Qty: 90 0RF Discontinued furosemide 40 mg tablet 60 mg PO DAILY Patient Comments: pt states she increased her dose to 60mg on her own Date of admission: 03/13/24 09:16 Primary Care Provider: Adis Hurd Admitting Provider: Judson Mckeon Attending physician on admission: Judson Mckeon Condition: Improved Hospitalist MIPS Heart Failure (Exclusion) Patient has history of Heart Transplant or Left Ventricular Assistive Device?: No IF YES, STOP HERE Heart Failure (Qualifier) Patient has current or prior documentation of LVEF less than or equal to 40%, or mod/servere depressed LVSF?: No IF NO, STOP HERE If Yes, Heart Failure (Qualifier) Patient was prescribed or already taking bisoprolol, carvedilol, or sustained release metoprolol succinate: Yes
[2024-03-22 11:58] LABS: Glucose Point of Care 159 mg/dl (65-105)
[2024-03-22 17:53] LABS: Adenovirus DNA Not Detected (Not Detected); Chlamydophila pneumoniae Not Detected (Not Detected); Coronavirus 229E Not Detected (Not Detected); Coronavirus HKU1 Not Detected (Not Detected); Coronavirus NL63 Not Detected (Not Detected); Coronavirus OC43 Not Detected (Not Detected); Human Metapneumovirus Not Detected (Not Detected); Human Parainfluenza Virus 1 Not Detected (Not Detected); Human Parainfluenza Virus 2 Not Detected (Not Detected); Human Parainfluenza Virus 3 Not Detected (Not Detected); Human Parainfluenza Virus 4 Not Detected (Not Detected); Human RSV B Not Detected (Not Detected); Influenza A Not Detected (Not Detected); Influenza B Not Detected (Not Detected); Mycoplasma pneumoniae Not Detected (Not Detected); Rhinovirus/Enterovirus Not Detected (Not Detected)
[2024-03-30 19:03] LABS: Glucose Pleural Fluid 110 mg/dL; LDH Pleural Fluid 184 U/L
== END 2024-03-22 13:35 | disposition home health service (06) | DRG 186 ==
LOC: ANHED 19:43 → ANHIMU 21:05 → ANH2MED 03-22 11:22 → ANHIMU 03-23 10:44
PROVIDERS: Internal Medicine; Internal Medicine Critical Care Medicine; Internal Medicine Pulmonary Disease; Registered Nurse; Student in an Organized Health Care Education/Training Program; Admitting Provider Internal Medicine; Emergency Provider Physician Assistant; PCP Internal Medicine; Visit Provider Internal Medicine
DX: J90 Pleural effusion, not elsewhere classified (principal); J18.9 Pneumonia, unspecified organism; J96.21 Acute and chronic respiratory failure with hypoxia; J44.1 Chronic obstructive pulmonary disease with (acute) exacerbation; J44.0 Chronic obstructive pulmonary disease with (acute) lower respiratory infection; N18.30 Chronic kidney disease, stage 3 unspecified; I12.9 Hypertensive chronic kidney disease with stage 1 through stage 4 chronic kidney disease, or unspecified chronic kidney disease; I50.9 Heart failure, unspecified; I35.0 Nonrheumatic aortic (valve) stenosis; I25.10 Atherosclerotic heart disease of native coronary artery without angina pectoris; I48.0 Paroxysmal atrial fibrillation; D64.9 Anemia, unspecified; E87.6 Hypokalemia; E78.5 Hyperlipidemia, unspecified; R91.8 Other nonspecific abnormal finding of lung field; F41.9 Anxiety disorder, unspecified; Z20.822 Contact with and (suspected) exposure to COVID-19; Z79.01 Long term (current) use of anticoagulants; Z79.02 Long term (current) use of antithrombotics/antiplatelets; Z95.5 Presence of coronary angioplasty implant and graft; Z87.891 Personal history of nicotine dependence; Z99.81 Dependence on supplemental oxygen
CPT/HCPCS: 32555; 36415; 36600; 71045; 71275; 76775; 80048; 80053; 80069; 81001; 82042; 82550; 82570; 82607; 82728; 82746; 82805; 82945; 82948; 83036; 83540; 83550; 83615; 83735; 83880; 83921; 83986; 84100; 84132; 84145; 84156; 84157; 84300; 84311; 84443; 84484; 85018; 85025; 85380; 85610; 85730; 85999; 86140; 86480; 87015; 87040; 87070; 87075; 87102; 87116; 87205; 87206; 87633; 87636; 87641; 88108; 88305; 89051; 93005; 93306; 94002; 94618; 94640; 94667; 94668; 94669; 94762; 96374; 96375; 97110; 97116; 97161; 97166; 97530; 97535; 99285; A9270; G0378; J1650; J1939; J1940; J2060; J2543; J2919; J3480; J7040; J7512; J7639; Q9967

== ENCOUNTER 2024-06-12 10:47 | Outpatient (NON) | payer MEDICARE, BC, SELFPAY | END 2024-06-12 10:48 | disposition home or self-care (01) | PROVIDERS: PCP Nurse Practitioner; Visit Provider Internal Medicine Pulmonary Disease | DX: J18.9 Pneumonia, unspecified organism (principal) | CPT/HCPCS: 87015; 87116; 87206 ==

== ENCOUNTER 2024-06-27 17:22 | Emergency (ER) | payer MEDICARE, BC, SELFPAY ==
[2024-06-27 17:25] VITALS: BP 165/100; PULSE 93; RESP 20; TEMP 36.3; O2SAT 94
--- OUTSIDE RECORDS SUMMARY | 2024-06-27 17:25 | XMS_ITS | Continuity of Care Document ---
Author Organization [facility] Address [address] [place] [address] [place] [address] Phone Care Team Providers Care Director Community Health Nursing Name Role Phone Aleks Jeronimo Unavailable Unavailable Procedures Procedure Date Cataract Kit SEC MV Medical Tax Advance Directives Directive Yes / No Effective Date File Name No Information Encounters Encounter Description Practice Location Reason(s) For Visit Diagnoses Date Provider Providers Copied on Encounter [facility], [address] [place] [address] [address], [place], [place], [id number], [place] tel:[phone] SEC Katie [place] Katie No Information Phani Fink. [address] [place], [address], [place]. tel:[phone] Family History Family Member Type Diagnosis Age [...]
--- OUTSIDE RECORDS SUMMARY | 2024-06-27 19:09 | XMS_ITS | Continuity of Care Document ---
Author Organization [facility] Address [address] [place] [address] [place] [address] Phone Care Team Providers Care Survival Equipment Repairer Name Role Phone Aleks Jeronimo Unavailable Unavailable Procedures Procedure Date Cataract Kit SEC MV Medical Tax Advance Directives Directive Yes / No Effective Date File Name No Information Encounters Encounter Description Practice Location Reason(s) For Visit Diagnoses Date Provider Providers Copied on Encounter [facility], [address] [place] [address] [address], [place], [place], [id number], [place] tel:[phone] SEC Katie [place] Katie No Information Phani Fink. [address] [place], [address], [place]. tel:[phone] Family History Family Member Type Diagnosis Age [...]
== END 2024-06-27 17:30 | disposition left against medical advice (07) ==
LOC: ANHED 19:07
PROVIDERS: PCP Nurse Practitioner
DX: J44.9 Chronic obstructive pulmonary disease, unspecified (principal)
CPT/HCPCS: 99199

== ENCOUNTER 2024-07-04 13:50 | Outpatient (CLI) | payer MEDICARE, BC, SELFPAY ==
--- NOTE | ~2024-07-04 | MR_ITS ---
EXAMINATION: MR wrist LT wo con DATE: 07/04/2024 15:10 INDICATION: Left wrist pain TECHNIQUE: Magnetic resonance imaging (MRI) of the left wrist was performed without intravenous contr ast. Sequences performed include axial PD-weighted FSE and PD-weighted FS FSE, coronal PD-weighted FS FSE and T1-weighted SE, and sagittal PD-weighted FS FSE and PD-weighted FSE. COMPARISON: None FINDINGS: Intrinsic ligaments: Mild increased signal of less than fluid intensity at the dorsal and central membranous components of the scapholunate ligament and collateral tiny T1 hyperintense likely heterotopic ossicles along the volar sided ligament likely sequela of chronic partial tear. The lunotriquetral ligament is normal. Triangular fibrocartilage complex (TFCC): There is a full-thickness tear along the central aspect of the radial side of the fibrocartilaginous disc of the triangular fibrocartilage complex. Additional partial-thickness on the proximal articular surface of the ulnar side of the fibrocartilaginous disc. The foveal and ulnar styloid attachments a s well as the dorsal and volar radioulnar ligaments are normal. The ulnar collateral ligament, ulnotr iquetral ligament and meniscal homologue are normal. The extensor carpi ulnaris tendon sheath is norm al. Extensor wrist: Mild tendinopathy and longitudinal split tear of the extensor carpi ulnaris tendon centered at the le yunier of the ECU groove. Moderate tenosynovitis in the first dorsal compartment with moderate tendinopa thy and longitudinal split tearing of the distal abductor pollicis longus tendon. Remaining extensor tendons of the hand and wrist are normal. Flexor wrist: Mild tendinopathy without tear of the flexor carpi radialis tendon centered at the level of the proxi mal carpal row. The remaining flexor tendons of the wrist are normal. No abnormality in the carpal t unnel with normal median nerve. Guyon's canal: Guyon's canal including the ulnar nerve and artery are normal. Bones/other: Increased lunocapitate angle of 30 degrees. The scapholunate angle however remains within normal limi ts at 60 degrees. 2 mm ulnar positive variance. There is subarticular cystic change along the ulnar s bhavna of the distal ulna at the junction of the articular surface of the wrist and distal radioulnar lenin int which could relate either ulnocarpal impaction and/or high-grade chondromalacia related to modera te osteoarthritis at the distal radioulnar joint. Small joint effusions at both the wrist and distal radioulnar joints which likely communicates through the full-thickness tear of the triangular fibroca rtilage complex. There is additional mild to moderate osteoarthritis at the wrist joint with moderate grade chondromalacia at the radiolunate articulation. Mild osteoarthritis at the midcarpal joint wit h subarticular cystic change at the radial side of the distal articular surface of the lunate. Mild o steoarthritis at the triscaphe joint and moderate osteoarthritis at the first carpometacarpal joint. No fracture or pathologic marrow replacing process. IMPRESSION: 1. 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 2. Findings suggestive ulnocarpal impaction including 2 mm ulnar positive variance, full-thickness te ar at the radial side of the focal cartilaginous disc of the triangular fibrocartilage complex and cy stic changes at the ulnar side of the distal ulna. 3. Polyarticular osteoarthritis, moderate severity at the distal radioulnar, wrist and first carpal m etacarpal joints and mild at the midcarpal and triscaphe joints. 4. Moderate tenosynovitis with moderate tendinopathy and longitudinal split tearing of the distal abd uctor pollicis longus tendon. 5. Mild tendinopathy and longitudinal split tearing of the extensor carpi ulnaris tendon. Reviewed, dictated and finalized at location B. IMPRESSION: 1. 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 2. Findings suggestive ulnocarpal impaction including 2 mm ulnar positive varia nce, full-thickness tear at the radial side of the focal cartilaginous disc of the triangular fibrocartilage complex and cystic changes at the ulnar side of t he distal ulna. 3. Polyarticular osteoarthritis, moderate severity at the distal radioulnar, wr ist and first carpal metacarpal joints and mild at the midcarpal and triscaphe joints. 4. Moderate tenosynovitis with moderate tendinopathy and longitudinal split tea ring of the distal abductor pollicis longus tendon. 5. Mild tendinopathy and longitudinal split tearing of the extensor carpi ulnar is tendon.
--- NOTE | ~2024-07-04 | XR_ITS ---
XR wrist LT 2V 07/04/2024 15:44 Indication: Left wrist pain Procedure: 2 views left wrist Comparison: 02/12/2011 Findings: Osteopenia. There is polyarticular osteoarthritis most advanced at the triscaphe, first MCP and IP joints. No acute fracture or traumatic malalignment. Impression: 1: Polyarticular osteoarthritis. Reviewed, dictated and finalized at location A. Impression: 1: Polyarticular osteoarthritis.
--- NOTE | ~2024-07-04 | XR_ITS ---
XR sacroiliac joints min 3V 07/04/2024 15:44 Indication: Sacroiliitis Procedure: 3 views of the sacroiliac joints. Comparison: No prior studies for comparison. Findings: There is mild bilateral symmetric degenerative change of the sacroiliac joints. There is lo wer lumbar spondylosis. There is mild osteoarthritis of the hips. No erosive changes of the SI joints . No evidence for ankylosis. There is atherosclerosis. Impression: 1: Mild bilateral symmetric degenerative change of the sacroiliac joints. Reviewed, dictated and finalized at location A. Impression: 1: Mild bilateral symmetric degenerative change of the sacroiliac joints.
--- NOTE | ~2024-07-04 | MR_ITS ---
EXAMINATION: MR lumbar spine wo con DATE: 07/04/2024 15:10 INDICATION: Spinal stenosis, lumbar region with neurogenic claudication. Chronic low back pain. TECHNIQUE: Magnetic resonance imaging (MRI) of the lumbar spine was performed without intravenous con trast. Sequences included sagittal T2-weighted FSE, sagittal T2-weighted FS FSE, sagittal T1-weighted FSE, and axial T2-weighted FSE. COMPARISON: Lumbar spine MRI 12/30/2007 FINDINGS: There is 5 degrees levocurvature of lumbar spine. There is 3 mm retrolisthesis of L2 on L3 and 3 mm anterolisthesis of L4 on L5. There is mild chronic anterior wedging of T11 and T12 vertebral bodies. There is a chronic compression fracture of L1 with 1/5 loss of height. There is moderately d ecreased disc height at L2-L3 and L3-L4 and mildly decreased disc height at L4-L5. The distal spinal cord signal intensity is normal. The conus medullaris is at L1. There is a 4.2 cm fusiform aneurysm o f infrarenal aorta. The following disc levels are specifically discussed: L1-L2: There is a central protrusion. There is mild bilateral facet joint osteoarthritis. There is no neural foraminal stenosis. There is no central canal stenosis. L2-L3: The disc is bulging with superimposed right subarticular zone extrusion. There is moderate christiane ateral facet joint osteoarthritis. There is mild right and moderate left neural foraminal stenosis. T here is mild central canal stenosis. L3-L4: The disc is bulging and has an annular fissure. There is severe bilateral facet joint osteoart hritis. There is no neural foraminal stenosis. There is no central canal stenosis. L4-L5: The disc is bulging and has an annular fissure. There is severe bilateral facet joint osteoart hritis. There is moderate right and mild left neural foraminal stenosis. There is mild central canal stenosis. L5-S1: The disc does not extend beyond the endplate margin. There is severe bilateral facet joint ost eoarthritis. There is mild bilateral neural foraminal stenosis. There is no central canal stenosis. IMPRESSION: 1. Moderate lumbar spondylosis, worsened from 12/30/2007. Reviewed, dictated and finalized at location A.
--- NOTE | ~2024-07-04 | XR_ITS ---
XR lumbar spine 6V w bending 07/04/2024 15:44 Indication: Postlaminectomy syndrome Procedure: 7 views lumbar spine Comparison: 03/13/2018 Findings: There are laminectomy changes at L4 and L5. There is grade 1 spondylolisthesis at L4-5. The re is disc narrowing at all lumbar levels. There is mild superior endplate compression deformity of L 1 which is unchanged, likely chronic. There is a fusiform infrarenal abdominal aortic aneurysm unchan ged allowing for technique. There are cholecystectomy clips. Granulomatous disease of the spleen. Impression: 1: Stable severe lumbar spondylosis with laminectomy changes at L4 and L5. Reviewed, dictated and finalized at location A. Impression: 1: Stable severe lumbar spondylosis with laminectomy changes at L4 and L5.
--- NOTE | ~2024-07-04 | XR_ITS ---
XR hip BI 2V w AP pelvis 07/04/2024 15:44 Indication: Sacroiliitis Procedure: AP pelvis and 2 views each hip Comparison: 07/04/2024 Findings: Mild symmetric osteoarthritis of the hips. Pelvic rings are intact. No fracture, subluxatio n or dislocation. There is atherosclerosis of the femoral vessels. Impression: 1: Mild symmetric osteoarthritis of the hips. Reviewed, dictated and finalized at location A. Impression: 1: Mild symmetric osteoarthritis of the hips.
--- OUTSIDE RECORDS SUMMARY | 2024-07-04 14:59 | XMS_ITS ---
Author Name Mat Reynoso Address [address] [place] [address] Phone [phone] Organization [facility] [facility] ice Address [address] [place] [address] Phone [phone] Care Team Providers Care Emergency Medicine Medical Director Name Role Phone Mat Reynoso Unavailable [phone] Gurpreet Perkins Unavailable Functional Status Mental Status Allergies and Intolerances Medications Problems Reason for Referral Past Medical History
--- OUTSIDE RECORDS SUMMARY | 2024-07-04 14:59 | XMS_ITS | Continuity of Care Document ---
Author Organization [facility] Address [address] [place] [address] [place] [address] Phone Care Team Providers Care Germ Drier Name Role Phone Aleks Jeronimo Unavailable Unavailable Procedures Procedure Date Cataract Kit SEC MV Medical Tax Advance Directives Directive Yes / No Effective Date File Name No Information Encounters Encounter Description Practice Location Reason(s) For Visit Diagnoses Date Provider Providers Copied on Encounter [facility], [address] [place] [address] [address], [place], [place], [id number], [place] tel:[phone] SEC Katie [place] Katie No Information Phani Fink. [address] [place], [address], [place]. tel:[phone] Family History Family Member Type Diagnosis Age [...]
== END 2024-07-04 13:51 | disposition home or self-care (01) ==
PROVIDERS: PCP Internal Medicine; Visit Provider Anesthesiology Pain Medicine
DX: M48.062 Spinal stenosis, lumbar region with neurogenic claudication (principal); M46.1 Sacroiliitis, not elsewhere classified; M96.1 Postlaminectomy syndrome, not elsewhere classified; M47.896 Other spondylosis, lumbar region; M16.0 Bilateral primary osteoarthritis of hip; M19.032 Primary osteoarthritis, left wrist
CPT/HCPCS: 72114; 72148; 72202; 73100; 73221; 73521

== ENCOUNTER 2024-08-20 12:09 | Outpatient (CLI) | payer MEDICARE, BC, SELFPAY ==
--- NOTE | ~2024-08-20 | XR_ITS ---
Clinical Indication: COPD PA and lateral views of the chest: Comparison: 03/20/2024 Findings: There is COPD and/or chronic interstitial disease. Probable minimal right pleural effusion. Cardiomediastinal silhouette is within normal limits. T7 compression fracture present. Impression: Probable minimal right pleural effusion. COPD and/or chronic interstitial disease. T7 compression fracture. Reviewed, dictated and finalized at location . Impression: Probable minimal right pleural effusion. COPD and/or chronic interstitial disease. T7 compression fracture.
--- OUTSIDE RECORDS SUMMARY | 2024-08-20 12:15 | XMS_ITS ---
Author Name Auto Generated, Auto Generated Organization [facility] Address [address] [place] [address] Phone [phone] Care Team Providers Care Tree Fruit And Nut Farming Supervisor Name Role Phone Leeannejorge luismikaTanian Unavailable [phone] Gurpreet Perkins Unavailable [phone] Functional Status No Results Mental Status No Results Allergies and Intolerances Name Onset Date Reaction Severity penicillin (Allergy) TueMar 07 13:30:00 EST 202 3 Medications Medication Directions Start Date End Date TubersoL 5 tub. unit/0.1 mL intradermal injection solution Read Results VIAL (ML) Other 1 Time Weekly for 2 Weeks Indication: . Read results between 48-72 hours after 1st and 2nd (1 week apart). If positive do chest x-ray. TueMar 10 09:00:00 2022Mar 16 01:00:00 EST 2022 cefdinir 300 mg capsule 1 capsule CAPSUL E Oral 2 Times Daily for 10 Days Indication: PNA TueMar 10 18:00:00 2022Mar 10 18:44:00 EST 2022 cefdinir 300 mg capsule 1 capsule CAPSUL E Oral 2 Times Daily for 10 Days Indication: PNA TueMar 10 11:00:00 EST 2022Mar 16 01:00:00 EST 2022 ALPRAZolam 1 mg tablet 1 TAB TABLET Oral 1 Time Daily Indication: anxiety /insomnia TueMar 09 14:00:00 2022Mar 16 01:00:00 EST 2022 HYDROcodone 5 mg-acetaminophen 325 mg tablet 1 tab TABLET Oral PRN Every 6 Hours for 14 Days Indication: pain TueMar 09 19:37:00 2022Mar 16 01:00:00 EST 2022 TubersoL 5 tub. unit/0.1 mL intradermal injection solution 0.1 ml VIAL (ML) Intradermal 1 Time Weekly for 2 Weeks Indication: . 1st injection on admission, then one week after. Read between 48 and 72 hours TueMar 08 09:00:00 2022Mar 16 01:00:00 EST 2022 ALPRAZolam 1 mg tablet 1 TAB TABLET Oral 1 Time Daily Indication: anxiety /insomnia TueMar 07 15:00:00 2022Mar 09 14:18:00 2022 Mucus Relief ER 600 mg tablet, extended release 1 TAB TABLET, EXTENDED RELEASE 12 HR Oral Every 12 Hours Indication: congestion TueMar 07 15:00:00 2022Mar 16 01:00:00 2022 lidocaine 4 % topical patch 1 PATCH ADHESIVE PATCH, MEDICATED Topical Every 12 Hours Indication: apply to left hip APPLY 1 PATCH TO SKIN DAILY AND REMOVE AFTER 12 HOURS TueMar 07 15:00:00 2022Mar 16 01:00:00 EST 2022 miconazole nitrate 2 % topical cream 1 APPLICATION CREAM (GRAM) Topical Every 12 Hours Indication: q 12 hrs x 10 days, apply to bottom of left foot TueMar 07 15:00:00 2022Mar 16 01:00:00 EST 2022 ipratropium 0.5 mg-albuteroL 3 mg (2.5 mg base)/3 mL nebulization soln 3 ML AMPUL FOR NEBULIZATION (ML) Inhalation Every 6 Hours Indication: every 6 hrs while awake for post PNA TueMar 07 15:00:00 2022Mar 16 01:00:00 EST 2022 pantoprazole 40 mg tablet,delayed release 40 MG TABLET, DELAYED RELEASE (ENTERIC COATED) Oral 1 Time Daily Indication: GERD TueMar 07 15:00:00 2022Mar 16 01:00:00 EST 2022 polyethylene glycoL 3350 17 gram/dose oral powder 17 GRAM POWDER (GRAM) Oral 1 Time Daily Indication: constipation TueMar 07 15:00:00 2022Mar 16 01:00:00 EST 2022 Stimulant Laxative Plus 8.6 mg-50 mg tablet 1 TAB TABLET Oral Hour Of Sleep Indication: constipation TueMar 07 15:00:00 2022Mar 16 01:00:00 EST 2022 amiodarone 100 mg tablet 1 TAB TABLET Or al 1 Time Daily Indication: heart health TueMar 07 15:00:00 EST 2022Mar 16 01:00:00 EST 2022 Eliquis 5 mg tablet 1 TAB TABLET Oral 2 Times Daily Indication: a fib TueMar 07 15:00:00 EST 2022Mar 16 01:00:00 EST 2022 furosemide 40 mg tablet 1.5 TABS TABLET Oral 1 Time Daily Indication: HTN 1.5 TABS=60MG TueMar 07 15:00:00 EST 2022Mar 16 01:00:00 EST 2022 pravastatin 40 mg tablet 1 TAB TABLET Or al Hour Of Sleep Indication: hyperlipedemia TueMar 07 15:00:00 EST 2022Mar 16:00:00 EST 2022 albuterol sulfate HFA 90 mcg/actuation aerosol inhaler 2 PUFF HFA AEROSOL WITH ADAPTER (GRAM) Inhalation PRN Every 4 Hours Indication: PNA EVERY 4-6 HOURS PRN TueMar 07 01:00:00 EST 2022Mar 16 01:00:00 EST 2022 sertraline 100 mg tablet 2 TABS TABLET O ral 1 Time Daily Indication: depression 2 [id number] TueMar 07 15:00:00 EST 2022Mar 16 01:00:00 EST 2022 clopidogreL 75 mg tablet 75 MG TABLET Or al 1 Time Daily Indication: blood thinner TueMar 07 15:00:00 EST 2022Mar 16 01:00:00 EST 2022 dilTIAZem ER 360 mg capsule,24 hr,extended release 1 CAP CAPSULE, EXTENDED RELEASE 24HR Oral 1 Time Daily Indication: htn TueMar 07 15:00:00 EST 2022Mar 16 01:00:00 EST 2022 colestipoL 1 gram tablet 2 TABS TABLET O ral 1 Time Daily Indication: cholesterol TueMar 07 09:00:00 EST 2022Mar 16 01:00:00 EST 2022 ramipriL 5 mg capsule 1 CAP CAPSULE Oral 1 Time Daily Indication: htn TueMar 07 15:00:00 EST 2022Mar 16 01:00:00 EST 2022 cephALEXin 500 mg capsule 1 CAP CAPSULE Oral Every 8 Hours for 7 Days Indication: infection TueMar 07 15:00:00 EST 2022Mar 07 17:25:00 EST 2022 Problems Active Concerns * Displaced fracture of greater trochanter of left femur, subsequent encounter for closed fracture with routine healing* Code: * Start Date: TueMar 07 00:00:00 EST 2022 * End Date: * Text: * Anemia, unspecified* Code: * Start Date: TueMar 07 00:00:00 2022 * End Date: * Text: * Hypertensive chronic kidney disease with stage 1 through stage 4 chronic kidney disease, or unspecified chronic kidney disease* Code: * Start Date: TueMar 07 00:00:00 EST 2022 * End Date: * Text: * Hyperlipidemia, unspecified* Code: * Start Date: TueMar 07 00:00:00 EST 2022 * End Date: * Text: * [facility] (current) use of anticoagulants* Code: * Start Date: TueMar 07 00:00:00 2022 * End Date: * Text: * [facility] (current) use of antithrombotics/antiplatelets* Code: * Start Date: TueMar 07 00:00:00 2022 * End Date: * Text: * Paroxysmal atrial fibrillation* Code: * Start Date: TueMar 07 00:00:00 2022 * End Date: * Text: * Presence of coronary angioplasty implant and graft* Code: * Start Date: TueMar 07 00:00:00 2022 * End Date: * Text: * Personal history of nicotine dependence* Code: * Start Date: TueMar 07 00:00:00 2022 * End Date: * Text: * Acute kidney failure, unspecified* Code: * Start Date: TueMar 07 00:00:00 2022 * End Date: * Text: * Unspecified fall, subsequent encounter* Code: * Start Date: TueMar 07 00:00:00 2022 * End Date: * Text: * Chronic obstructive pulmonary disease, unspecified* Code: * Start Date: TueMar 07 00:00:00 EST 2022 * End Date: * Text: * Chronic kidney disease, stage 3 unspecified* Code: * Start Date: TueMar 07 00:00:00 2022 * End Date: * Text: * Chronic obstructive pulmonary disease with (acute) lower respiratory infection * Code: * Start Date: TueMar 07 00:00:00 2022 * End Date: * Text: * Pneumonia, unspecified organism* Code: * Start Date: TueMar 07 00:00:00 2022 * End Date: * Text: Reason for Referral Past Medical History Resolved Concerns * Problem Unspecified atrial fibrillation* Code: * Start Date: TueMar 07 00:00:00 2022 * End Date: TueMar 08 00:00:00 2022 * Problem Chronic kidney disease, unspecified* Code: * Start Date: TueMar 07 00:00:00 2022 * End Date: TueMar 08 00:00:00 EST 2022
--- OUTSIDE RECORDS SUMMARY | 2024-08-20 12:15 | XMS_ITS | Continuity of Care Document ---
Author Organization [facility] Address [address] [place] [address] [place] [address] Phone Care Team Providers Care Strategic Insights Lead Name Role Phone Aleks Jeronimo Unavailable Unavailable Procedures Procedure Date Cataract Kit SEC MV Medical Tax Advance Directives Directive Yes / No Effective Date File Name No Information Encounters Encounter Description Practice Location Reason(s) For Visit Diagnoses Date Provider Providers Copied on Encounter [facility], [address] [place] [address] [address], [place], [place], [id number], [place] tel:[phone] SEC Katie [place] Katie No Information Phani Fink. [address] [place], [address], [place]. tel:[phone] Family History Family Member Type Diagnosis Age [...]
--- OUTSIDE RECORDS SUMMARY | 2024-08-20 12:15 | XMS_ITS ---
Author Name Auto Generated, Auto Generated Organization [facility] Address [address] [place] [address] Phone [phone] Care Team Providers Care Automatic Car Wash Attendant Name Role Phone Leeannejorge luismikaTanian Unavailable [phone] Gurpreet Perkins Unavailable [phone] Functional Status No Results Mental Status No [...] ral 1 Time Daily Indication: depression 2 [id number] TueMar 07 15:00:00 EST 2022Mar 16 01:00:00 [...] 2022 * End Date: * Text: * alf (current) use of anticoagulants* Code: * Start Date: TueMar 07 00:00:00 2022 * End Date: * Text: * alf (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
== END 2024-08-20 12:10 | disposition home or self-care (01) ==
PROVIDERS: PCP Internal Medicine; Visit Provider Internal Medicine Pulmonary Disease
DX: A31.0 Pulmonary mycobacterial infection (principal); J44.9 Chronic obstructive pulmonary disease, unspecified; S22.060D Wedge compression fracture of T7-T8 vertebra, subsequent encounter for fracture with routine healing; X58.XXXD Exposure to other specified factors, subsequent encounter
CPT/HCPCS: 71046

== ENCOUNTER 2024-08-31 12:34 | Outpatient (NON) | payer MEDICARE, BC, SELFPAY ==
--- OUTSIDE RECORDS SUMMARY | 2024-08-31 12:38 | XMS_ITS ---
Author Name Auto Generated, Auto Generated Organization [facility] Address [address] [place] [address] Phone [phone] Care Team Providers Care Account Coordinator Name Role Phone Leeannejorge luismikaTanian Unavailable [phone] Gurpreet Perkins Unavailable Functional Status No Results Mental Status No [...] ral 1 Time Daily Indication: depression 2 [id number] TueMar 07 15:00:00 EST 2022Mar 16 01:00:00 [...] 2022 * End Date: * Text: * senior living (current) use of anticoagulants* Code: * Start Date: TueMar 07 00:00:00 2022 * End Date: * Text: * senior living (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
--- OUTSIDE RECORDS SUMMARY | 2024-08-31 12:38 | XMS_ITS ---
Author Name Auto Generated, Auto Generated Organization [facility] [facility] Address [address] [place] [address] Phone [phone] Care Team Providers Care Falsework Builder Name Role Phone Leeannejorge luismikaTanian Unavailable [phone] Gurpreet Perkins Unavailable Functional Status No Results [...] ral 1 Time Daily Indication: depression 2 [id number] TueMar 07 15:00:00 EST 2022Mar 16 01:00:00 [...] 2022 * End Date: * Text: * [facility] (current) use of anticoagulants* Code: * Start Date: TueMar 07 00:00:00 2022 * End Date: * Text: * [facility] (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
--- OUTSIDE RECORDS SUMMARY | 2024-08-31 12:38 | XMS_ITS | Continuity of Care Document ---
Author Organization [facility] Address [address] [place] [address] [place] [address] Phone Care Team Providers Care Home Therapy Clinician Name Role Phone Aleks Jeronimo Unavailable Unavailable Procedures Procedure Date Cataract Kit SEC MV Medical Tax Advance Directives Directive Yes / No Effective Date File Name No Information Encounters Encounter Description Practice Location Reason(s) For Visit Diagnoses Date Provider Providers Copied on Encounter [facility], [address] [place] [address] [address], [place], [place], [id number], [place] tel:[phone] SEC Katie [place] Katie No Information Phani Fink. [address] [place], [address], [place]. tel:[phone] Family History Family Member Type Diagnosis Age At Onset No Information Payers Payer name Insurance type Covered libertarian ID Authoriza tion(s) No Information Social History [...]
== END 2024-08-31 12:35 | disposition home or self-care (01) ==
PROVIDERS: PCP Internal Medicine; Visit Provider Internal Medicine Pulmonary Disease
DX: A31.0 Pulmonary mycobacterial infection (principal)
CPT/HCPCS: 87015; 87116; 87206

== ENCOUNTER 2024-09-05 12:43 | Outpatient (CLI) | payer MEDICARE, BC, SELFPAY ==
[2024-09-05] VITALS (7 sets, daily range): PULSE 95–110; O2SAT 77–90
--- NOTE | ~2024-09-05 | CT_ITS ---
CT Scan of the Chest without Contrast: Clinical Indication: COPD Technique: Contiguous sections were acquired throughout the chest without intravenous contrast. Dose reduction technique was used on this scan by utilizing automated exposure control and iterative recon struction technique. The dose-length product (DLP) was 169.98 mGy-cm. COMPARISON: 12-24 Findings: There is no evidence of any significant mediastinal, hilar or axillary lymphadenopathy. There are ext ensive atherosclerotic calcifications of the aorta and coronary arteries. No pericardial effusion. Small bilateral pleural effusions are present. There is diffuse interstitial edema. Images through the upper abdomen reveal no abnormalities. Right-sided breast implant versus ovoid mas s is stable from prior exam. Stable T8 compression fracture. Impression: Small bilateral pleural effusions with interstitial pulmonary edema. Stable right breast implant versus less likely mass. Correlate with prior history. Stable T8 compression fracture. Reviewed, dictated and finalized at [facility]. Impression: Small bilateral pleural effusions with interstitial pulmonary edema. Stable right breast implant versus less likely mass. Correlate with prior histo ry. Stable T8 compression fracture.
--- OUTSIDE RECORDS SUMMARY | 2024-09-05 12:49 | XMS_ITS ---
Author Name Auto Generated, Auto Generated Organization [facility] Address [address] [place] [address] Phone [phone] Care Team Providers Care Hydrogenation Operator Name Role Phone Leeannejorge luismikaTanian Unavailable [phone] Gurpreet Perkins Unavailable Functional Status No Results [...] ral 1 Time Daily Indication: depression 2 [id number] TueMar 07 15:00:00 EST 2022Mar 16 01:00:00 [...] 2022 * End Date: * Text: * [facility]P (current) use of anticoagulants* Code: * Start Date: TueMar 07 00:00:00 2022 * End Date: * Text: * [facility]P (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
--- OUTSIDE RECORDS SUMMARY | 2024-09-05 12:49 | XMS_ITS ---
Author Name Auto Generated, Auto Generated Organization [facility] Address [address] [place] [address] Phone [phone] Care Team Providers Care Featheredge Machine Operator Name Role Phone Leeannejorge luismikaTanian Unavailable [phone] Gurpreet Perkins Unavailable Functional Status No Results [...] ral 1 Time Daily Indication: depression 2 [id number] TueMar 07 15:00:00 EST 2022Mar 16 01:00:00 [...] 2022 * End Date: * Text: * custodial (current) use of anticoagulants* Code: * Start Date: TueMar 07 00:00:00 2022 * End Date: * Text: * custodial (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
--- OUTSIDE RECORDS SUMMARY | 2024-09-05 12:49 | XMS_ITS | Continuity of Care Document ---
Author Organization [facility] Address [address] [place] [address] [place] [address] Phone Care Team Providers Care Computer Network Support Specialist Name Role Phone Aleks Jeronimo Unavailable Unavailable Procedures Procedure Date Cataract Kit SEC MV Medical Tax Advance Directives Directive Yes / No Effective Date File Name No Information Encounters Encounter Description Practice Location Reason(s) For Visit Diagnoses Date Provider Providers Copied on Encounter [facility], [address] [place] [address] [address], [place], [place], [id number], [place] tel:[phone] SEC Katie [place] Katie No Information Phani Fink. [address] [place], [address], [place]. tel:[phone] Family History Family Member Type Diagnosis Age [...]
--- NOTE | 2024-09-05 14:54 | HOMEO2EVAL ---
Evaluation was performed at [facility] Home Oxygen Evaluation RC: Home Oxygen (O2) Evaluation Start: 09/05/24 14:43 Freq: Status: Active Protocol: RPE Activity Type Activity Date Activity User E-sign Co-sign Detail Recorded Client Recorded Date Recorded By Document 09/05/24 12:50 [email or web address] 09/05/24 14:53 PKH Document 09/05/24 12:55 [email or web address] 09/05/24 14:53 PKH Document 09/05/24 13:00 [email or web address] 09/05/24 14:53 PKH Document 09/05/24 13:05 [email or web address] 09/05/24 14:53 PKH Document 09/05/24 13:10 [email or web address] 09/05/24 14:53 PKH Document 09/05/24 13:15 [email or web address] [email or web address] 09/05/24 14:53 PKH Document 09/05/24 13:20 [email or web address] [email or web address] 09/05/24 14:53 PKH 09/05/24 09/05/24 09/05/24 12:50 12:55 13:00 Home O2 Evaluation [Oxygen] -Test Phase Resting Resting Resting -Oxygen Delivery Room Air Nasal Cannula Nasal Cannula -Oxygen Flow Rate (L/min) 2 4 [Pulse Oximetry] -Pulse Oximetry (90-100 %) 77 L 85 L 90 [Pulse Rate] -Pulse Rate (60-100 beats/min) 102 H 106 H 95 [Evaluation] -Activity Tolerance [Charges] -Evaluation Charges O2 Evaluation by Pulmonary 09/05/24 09/05/24 09/05/24 13:05 13:10 13:15 Home O2 Evaluation [Oxygen] -Test Phase Exercise Exercise Exercise -Oxygen Delivery Nasal Cannula Nasal Cannula Nasal Cannula -Oxygen Flow Rate (L/min) 4 6 7 [Pulse Oximetry] -Pulse Oximetry (90-100 %) 85 L 87 L 88 L [Pulse Rate] -Pulse Rate (60-100 beats/min) 100 108 H 106 H [Evaluation] -Activity Tolerance [Charges] -Evaluation Charges 09/05/24 13:20 Home O2 Evaluation [Oxygen] -Test Phase Exercise -Oxygen Delivery Nasal Cannula -Oxygen Flow Rate (L/min) 8 [Pulse Oximetry] -Pulse Oximetry (90-100 %) 90 [Pulse Rate] -Pulse Rate (60-100 beats/min) 110 H [Evaluation] -Activity Tolerance Fair [Charges] -Evaluation Charges
== END 2024-09-05 12:44 | disposition home or self-care (01) ==
LOC: ANHPFT 12:45
PROVIDERS: PCP Internal Medicine; Visit Provider Internal Medicine Pulmonary Disease
DX: J44.9 Chronic obstructive pulmonary disease, unspecified (principal); A31.0 Pulmonary mycobacterial infection; J90 Pleural effusion, not elsewhere classified; S22.060D Wedge compression fracture of T7-T8 vertebra, subsequent encounter for fracture with routine healing; Z98.890 Other specified postprocedural states; X58.XXXD Exposure to other specified factors, subsequent encounter
CPT/HCPCS: 71250; 94618

== ENCOUNTER 2024-09-09 12:24 | Inpatient (IN) | payer MEDICARE, BC, SELFPAY ==
[2024-09-09] VITALS (20 sets, daily range): BP systolic 113–146; BP diastolic 56–89; PULSE 99–119; RESP 17–31; TEMP 36.3–37.1; O2SAT 91–100; BMI 28.0
--- NOTE | ~2024-09-09 | US_ITS ---
EXAMINATION: US thoracentesis DATE: 09/11/2024 15:17 INDICATION: pleural effusion TECHNIQUE: The procedure and its risks and benefits were discussed with the patient. Potential risks discussed included bleeding, infection, and pneumothorax. [employer] ultrasound was obtained and was elect ed to proceed with thoracentesis of the larger but still relatively small left pleural effusion. The patient understood the risks and agreed to proceed. The skin was prepped and draped in sterile fashio n. 1% lidocaine was used for local anesthesia. Under ultrasound guidance, a 5 Fr catheter with trocha r was advanced into the left pleural effusion. Fluid was aspirated. The catheter was removed, and a d ressing was applied. There were no immediate complications. FINDINGS: Ultrasound images demonstrate a small left pleural effusion and the catheter within the fluid. IMPRESSION: 1. Successful ultrasound-guided thoracentesis yielding 250 mL of reddish fluid. Reviewed, dictated and finalized at location A. IMPRESSION: 1. Successful ultrasound-guided thoracentesis yielding 250 mL of reddish fluid .
--- NOTE | ~2024-09-09 | XR_ITS ---
[id number] 09/11/2024 14:53 Indication: AP chest Procedure: Post thoracentesis Comparison: Comparison to multiple prior studies sequentially, with oldest reviewed study dated 12/2022. Findings: Cardiomegaly with interstitial edema. Small right pleural effusion. No pneumothorax. No acu te osseous abnormality. There is atherosclerosis of the aorta. Impression: 1: Cardiomegaly with pulmonary edema. 2: Small right pleural effusion. 3: No pneumothorax post procedure. Reviewed, dictated and finalized at location A. Impression: 1: Cardiomegaly with pulmonary edema. 2: Small right pleural effusion. 3: No pneumothorax post procedure.
--- NOTE | ~2024-09-09 | XR_ITS ---
XR chest 1V portable 09/12/2024 08:20 Indication: Left pleural effusion. Procedure: AP portable chest Comparison: Comparison to multiple prior studies sequentially, with oldest reviewed study dated 03/11. Findings: Cardiomegaly with chronic interstitial edema. No pleural effusion. No pneumothorax. No acut e osseous abnormality. There is atherosclerosis of the aorta. Impression: 1: Cardiomegaly with chronic interstitial edema. Reviewed, dictated and finalized at location A. Impression: 1: Cardiomegaly with chronic interstitial edema.
--- NOTE | ~2024-09-09 | XR_ITS ---
EXAMINATION: XR chest 1V portable DATE: 09/09/2024 12:46 INDICATION: Shortness of breath. COPD and congestive heart failure TECHNIQUE: frontal view of the chest was obtained. COMPARISON: Chest radiograph dated 08/20/[address] dated 09/05/2024 FINDINGS: There is been some increase in the previously seen diffuse increased interstitial pattern consistent with worsening pulmonary edema. Increasing hazy opacities in the bilateral lower lung zones with blun ting at the right costophrenic angle consistent with likely small bilateral layering pleural effusion s, right greater than left. No pneumothorax. Mild cardiomegaly. IMPRESSION: 1. Worsening still mild to moderate edema and new small bilateral pleural effusions, right greater th an left consistent with given history of congestive heart failure. 2. Mild cardiomegaly. Reviewed, dictated and finalized at location A. IMPRESSION: 1. Worsening still mild to moderate edema and new small bilateral pleural effus ions, right greater than left consistent with given history of congestive heart failure. 2. Mild cardiomegaly.
--- NOTE | 2024-09-09 12:33 | ECG_ITS ---
Test Date: 2024-09-09 12:36:23 Measurements Intervals [place] Rate: 110 P: 0 [place]: 0 QRS: 45 QRSD: 98 T: -18 QT: 287 QTc: 389 Interpretive Statements ATRIAL FIBRILLATION WITH RAPID VENTRICULAR RESPONSE WITH ABERRANT CONDUCTION OR VENTRICULAR PREMATURE COMPLEXES MINIMAL Q WAVES- INFERIOR LEADS ST-T WAVE ABNORMALITY IN ANTEROLATERAL LEADS- CONSIDER ISCHEMIA BASELINE ARTIFACT- I, II, III ABNORMAL ECG Compared to ECG 03/12/2024 13:09:27 NO SIGNIFICANT CHANGE Electronically Signed On 09-09-2024 19:20:50 CDT by Osvaldo Welch D.O.
--- NOTE | 2024-09-09 12:43 | ED.SOB ---
HPI - SOB/Dyspnea General Chief Complaint: Shortness of Breath/Dyspnea Stated Complaint: SOB Time Seen by Provider: 09/09/24 12:37 Source: patient, family and EMS Mode of arrival: EMS History of Present Illness HPI Narrative: 78 years old white female came with her daughter complaining of increased shortness of breath, increased wheezing over the last few days. Patient on chronic oxygen by nasal cannula 8 liter/minute, was in our facility 1 week ago, was seen by pulmonary for pulmonary function test 5 days ago. History of CHF, COPD, hypertension, hyperlipidemia. Patient denies any fever, chills, nausea, vomiting or chest pain. Related Data Home Medications ?Medication ?Instructions ?Recorded ?Confirmed ?Last Taken ?Type apixaban 5 mg tablet (Eliquis) 5 mg PO BID 08/07/20 09/09/24 04/12/23 08:32 History diltiazem HCl 240 mg 360 mg PO DAILY 10/05/23 09/09/24 Unknown History capsule,extended release 24 hr albuterol sulfate 90 mcg/actuation 2 puff inhalation Q4H PRN 12/01/23 09/09/24 Unknown History aerosol inhaler Shortness Of Breath Or Wheezing atorvastatin 10 mg tablet 10 mg PO HS 03/12/24 09/09/24 Unknown History colestipol 1 gram tablet 2 g PO DAILY 03/12/24 09/09/24 Unknown History Allergies Allergy/AdvReac Type Severity Reaction Status Date / Time steroids AdvReac Mild Confusion Uncoded 09/12/24 14:25 Review of Systems Review of Systems: All systems reviewed & are unremarkable except as noted in HPI and below PMFSH Past Medical History Medical History Minimal cognitive impairment Diarrhea Abdominal bloating Trochanteric fracture Chronic anticoagulation Chronic kidney disease, stage 3 Hyperlipidemia Hypertension Paroxysmal atrial fibrillation Compression fracture of body of thoracic vertebra Anxiety Surgical History Surgical History History of back surgery History of partial colectomy History of cardiac catheterization History of coronary artery stent placement History of hysterectomy History of cholecystectomy History of appendectomy History of tonsillectomy Family History Family History Father Patient's father is Family history of emphysema Mother Patient's mother is Family history of chronic obstructive pulmonary disease Other Heart disease Heart failure Social History Social History Smoking packs per day: 1.5 Smoking cigarettes per day: 30.0 Years smoked: 55 Smoking pack-years: 82.50 Smoking status: Former smoker Tobacco type: cigarettes Second hand tobacco smoke exposure: No Smoking end date: 01/09/23 Alcohol intake: never Drinks per week: 0 Substance use: never Substance use type: does not use Do You Feel Safe in your Home?: Yes Lack of Transportation: No Lack of Food: Never True Current Housing: I Have Housing Concerned About Future Housing: No Difficulty Paying Gas/Electric Bills: No Difficulty Paying for Meds: No Currently Unemployed: No Education: Decline to Answer Difficulty w/ Childcare or Family Care: No Living arrangements: assisted living Additional living arrangements comments: currently living at [facility] in [place] Occupation/Education: retired Spiritual care concerns: No Exam Narrative: General appearance: Well-developed, well-nourished Skin: Normal color Head: Normocephalic, nontraumatic Eyes: Clear conjunctiva ENT: Oropharynx normal, ears normal, nose normal Neck: Supple, nontender Chest and respiratory: Airway patent, [place] of air entry bilaterally, no wheezing, no rhonchi, no basilar rales slight labored breathing Heart: Regular rate/rhythm Abdomen: Soft, nontender, no organomegaly, quiet bowel sounds, guaiac stool positive for blood Vascular: Normal peripheral pulses, normal capillary refill. 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 Bolaños Date: 09/09/24 Time: 14:31 Vital Signs Vital signs: Vital Signs Temperature 36.6 C 09/09/24 12:27 Pulse Rate 109 H 09/09/24 12:27 Respiratory Rate 24 H 09/09/24 12:27 Blood Pressure 132/56 L 09/09/24 12:27 Pulse Oximetry 94 09/09/24 12:27 Oxygen Delivery Non-Rebreather Mask 09/09/24 12:27 Oxygen Flow Rate 15 09/09/24 12:27 Temperature 36.6 C 09/13/24 14:00 Pulse Rate 105 H 09/13/24 16:00 Respiratory Rate 20 09/13/24 14:46 Blood Pressure 100/63 09/13/24 14:00 Pulse Oximetry 93 09/13/24 14:32 Oxygen Delivery Nasal Cannula 09/13/24 14:32 Oxygen Flow Rate 2 09/13/24 14:32 Fraction of Inspired Oxygen 35 09/12/24 20:00 MDM - SOB/Dyspnea MDM Narrative Medical decision making narrative: Patient came with increasing shortness of breath over the last few days Vital signs showing heart rate of 109, regular, respiratory 24, saturation 94% on non-rebreather. Physical examination showing a patient with slight labored breathing, diminution of air entry bilaterally. Fine differential diagnosis includes COPD exacerbation, pneumonia, pleural effusion, CHF, electrolyte imbalance, dehydration Workup includes CBC, CMP, troponin, pro BMP, coags showed hemoglobin 6.7, PT 17.2, potassium 3.3, proBNP 2600, Chest x-ray showed Patient declined to be blood gas EKG showed AFib with RVR Diagnosis, anemia, GI bleed, COPD exacerbation, AFib with RVR, CHF Admit to hospitalist, Consult Dr. Bolaños Differential Diagnosis Differential diagnosis: Likely other (As above) Medical Records Attestation: I reviewed the patient's medical records. Lab Data Attestation: I reviewed the patient's lab results. 09/13/24 06:20 09/13/24 06:20 Labs: Lab Results 09/09/24 09/09/24 09/09/24 Range/Units 12:50 13:29 15:42 WBC 10.8 H (4.5-10.0) K/mm3 RBC 2.50 L (4.2-5.4) M/mm3 Hgb 6.7 L* (12.0-15.0) g/dL Hct 23.3 L (37.0-47.0) % MCV 93.2 (80-100) fl MCH 26.8 (26-34) pg MCHC 28.8 L (32-36) g/dl RDW 15.7 H (11.5-14.5) % Plt Count 202 (150-375) k/mm3 MPV 8.9 (7.4-10.4) fl Immature Gran % (Auto) 0.4 (0-0.5) % Neut % (Auto) 78.4 H (45.5-73.1) % Lymph % (Auto) 11.1 L (18.3-44.2) % [place] % (Auto) 9.0 H (2.6-8.5) % Eos % (Auto) 0.8 (0-4.4) % Baso % (Auto) 0.3 (0.2-1.2) % Lymph # (Auto) 1.20 (0.9-3.2) K/mm3 [place] # (Auto) 1.0 H (0.1-0.6) K/mm3 Eos # (Auto) 0.1 (0-0.3) K/mm3 Baso # (Auto) 0.0 (0.0-0.1) K/mm3 Abs Immat Gran (auto) 0.04 H (0.00-0.031) K/mm3 Absolute Neuts (auto) 8.4 H (1.3-6.7) K/mm3 Absolute Nucleated RBC 0.020 H (0.0-0.012) K/mm3 Band Neutrophils % Not Reportable Nucleated RBC % 0.2 (0.0-0.2) % Platelet Estimate Adequate (Adequate) Hypochromasia 1+ Schistocytes None seen PT 17.2 H (11.1-14.7) Seconds INR 1.4 APTT 32.6 (22.3-36.8) Seconds Sodium 142 (137-145) mmol/L Potassium 3.3 L (3.4-5.0) mmol/L Chloride 105 (98-107) mmol/L Carbon Dioxide 28 (22-30) mmol/L Anion Gap 9 (4-12) mmol/L BUN 17 (7-17) mg/dL Creatinine 0.84 (0.7-1.0) mg/dL Estim Creat Clear Calc 44 ml/min Estimated GFR > 60 (59 - ) Glucose 143 H (65-110) mg/dL Lactic Acid 1.7 (0.7-2.0) mmol/L Calcium 9.2 (8.4-10.2) mg/dL Total Bilirubin 0.4 (0.2-1.3) mg/dL AST 21 (14-36) U/L ALT 13 (6-35) U/L Alkaline Phosphatase 80 (38-126) U/L Troponin I < 0.012 < 0.012 (0.000-0.034) ng/mL NT-Pro-B Natriuret Pep 2600 H (19.9-100) pg/mL Total Protein 7.0 (6.3-8.2) g/dL Albumin 4.1 (3.5-5.1) g/dL Influenza A (RT-PCR) Negative (Negative) Influenza B (RT-PCR) Negative (Negative) RSV (RT-PCR) Negative (Negative) SARS-CoV-2 RNA (RT-PCR) Negative (Negative) Blood Type A Negative Antibody Screen Negative Crossmatch See Detail 09/09/24 09/09/24 09/10/24 Range/Units 18:50 19:06 05:37 WBC 7.1 (4.5-10.0) K/mm3 RBC 2.64 L (4.2-5.4) M/mm3 Hgb 7.8 L 6.9 L* (12.0-15.0) g/dL Hct 28.3 L 23.9 L (37.0-47.0) % MCV 90.5 (80-100) fl MCH 26.1 (26-34) pg MCHC 28.9 L (32-36) g/dl RDW 16.8 H (11.5-14.5) % Plt Count 169 (150-375) k/mm3 MPV 8.9 (7.4-10.4) fl Immature Gran % (Auto) (0-0.5) % Neut % (Auto) (45.5-73.1) % Lymph % (Auto) (18.3-44.2) % [place] % (Auto) (2.6-8.5) % Eos % (Auto) (0-4.4) % Baso % (Auto) (0.2-1.2) % Lymph # (Auto) (0.9-3.2) K/mm3 [place] # (Auto) (0.1-0.6) K/mm3 Eos # (Auto) (0-0.3) K/mm3 Baso # (Auto) (0.0-0.1) K/mm3 Abs Immat Gran (auto) (0.00-0.031) K/mm3 Absolute Neuts (auto) (1.3-6.7) K/mm3 Absolute Nucleated RBC (0.0-0.012) K/mm3 Band Neutrophils % Nucleated RBC % (0.0-0.2) % Platelet Estimate (Adequate) Hypochromasia Schistocytes PT (11.1-14.7) Seconds INR APTT (22.3-36.8) Seconds Sodium 139 (137-145) mmol/L Potassium 3.4 (3.4-5.0) mmol/L Chloride 105 (98-107) mmol/L Carbon Dioxide 26 (22-30) mmol/L Anion Gap 8 (4-12) mmol/L BUN 11 D (7-17) mg/dL Creatinine 0.71 (0.7-1.0) mg/dL Estim Creat Clear Calc 54 ml/min Estimated GFR > 60 (59 - ) Glucose 125 H (65-110) mg/dL Lactic Acid (0.7-2.0) mmol/L Calcium 8.6 (8.4-10.2) mg/dL Total Bilirubin 0.3 (0.2-1.3) mg/dL AST 16 (14-36) U/L ALT 10 (6-35) U/L Alkaline Phosphatase 72 (38-126) U/L Troponin I < 0.012 (0.000-0.034) ng/mL NT-Pro-B Natriuret Pep 1880 H (19.9-100) pg/mL Total Protein 7.0 (6.3-8.2) g/dL Albumin 3.7 (3.5-5.1) g/dL Influenza A (RT-PCR) (Negative) Influenza B (RT-PCR) (Negative) RSV (RT-PCR) (Negative) SARS-CoV-2 RNA (RT-PCR) (Negative) Blood Type Antibody Screen Crossmatch Imaging Data Radiologist's impression: Impressions Chest X-Ray 09/09/24 12:58 IMPRESSION: 1. Worsening still mild to moderate edema and new small bilateral pleural effusions, right greater than left consistent with given history of congestive heart failure. 2. Mild cardiomegaly. ECG Data EKG #1: Attestation: I personally reviewed and interpreted this ECG as follows: ECG completion date: 09/09/24 ECG completion time: 13:09 Prior ECG tracings: available for review Interpretation: AFib with RVR at 110 beats per minute, PVCs, nonspecific ST T-wave abnormality, compared to EKG on March 12, 2024 possible ischemia no longer present. Critical Care Time Critical Care Time Critical Care Time: No Discharge Plan Discharge Clinical Impression: Anemia, GI (gastrointestinal bleed) Patient Disposition: Still a Patient Condition: Stable
--- NOTE | 2024-09-09 12:53 | PC.NURSE ---
Patient declines ABG at this time.
[2024-09-09 12:57] LABS: Basophils Percent Auto 0.3 % (0.2-1.2); Eosinophils Absolute Auto 0.1 K/mm3 (0-0.3); Eosinophils Percent Auto 0.8 % (0-4.4); Hematocrit 23.3 % (37.0-47.0); Immature Granulocyte Absolute 0.04 K/mm3 (0.00-0.031); Immature Granulocyte Percent A 0.4 % (0-0.5); Lymphocytes Percent Auto 11.1 % (18.3-44.2); Mean Corpuscular HGB Conc 28.8 g/dl (32-36); Mean Corpuscular Hemoglobin 26.8 pg (26-34); Mean Corpuscular Volume 93.2 fl (80-100); Mean Platelet Volume 8.9 fl (7.4-10.4); Neutrophils Absolute Auto 8.4 K/mm3 (1.3-6.7); Neutrophils Percent Auto 78.4 % (45.5-73.1); Nucleated Red Blood Cells Perc 0.2 % (0.0-0.2); Platelet Count Result 202 k/mm3 (150-375); Red Cell Distribution Width 15.7 % (11.5-14.5); White Blood Count 10.8 K/mm3 (4.5-10.0)
[2024-09-09 13:07] LABS: Alanine Aminotransferase 13 U/L (6-35); Albumin Level 4.1 g/dL (3.5-5.1); Alkaline Phosphatase 80 U/L (38-126); Anion Gap 9 mmol/L (4-12); Aspartate Amino Transferase 21 U/L (14-36); Bilirubin,Total 0.4 mg/dL (0.2-1.3); Blood Urea Nitrogen 17 mg/dL (7-17); Calcium 9.2 mg/dL (8.4-10.2); Carbon Dioxide 28 mmol/L (22-30); Chloride 105 mmol/L (98-107); Estimated CRCL calculation 44 ml/min; Estimated Glomerular Filt Rate > 60; Glucose 143 mg/dL (65-110); Potassium 3.3 mmol/L (3.4-5.0); Sodium 142 mmol/L (137-145)
[2024-09-09 13:08] LABS: Lactic Acid Reflex 1.7 mmol/L (0.7-2.0)
[2024-09-09 13:15] LABS: Hemoglobin 6.7 g/dL (12.0-15.0)
[2024-09-09 13:18] LABS: INR 1.4; NT Pro B Type Natriuretic Pept 2600 pg/mL (19.9-100); Partial Thromboplastin Time 32.6 Seconds (22.3-36.8); Prothrombin Time 17.2 Seconds (11.1-14.7); Troponin I < 0.012 ng/mL (0.000-0.034)
[2024-09-09 13:20] LABS: Hypochromasia 1+; Platelet Estimate Adequate (Adequate); Schistocytes None Seen
[2024-09-09] MEDS: ALBUTEROL SULFATE NEB 2.5 MG/3 ML INH 10 MG INHALATION (13:26)
[2024-09-09 13:33] LABS: Influenza A QL RT-PCR Negative (Negative); Influenza B QL RT-PCR Negative (Negative); RSV RNA, RT-PCR Negative (Negative); SARS-CoV-2 RNA PCR Negative (Negative)
[2024-09-09] MEDS: FUROSEMIDE INJ 40 MG/4 ML VIAL IV PUSH (13:39)
[2024-09-09] MEDS: LORazepam INJ (*CRX) 2 MG/ML VIAL 0.5 MG IV PUSH (13:56)
--- NOTE | 2024-09-09 15:31 | ECG_ITS ---
Test Date: 2024-09-09 15:31:59 Measurements Intervals [place] Rate: 113 P: 0 [place]: 0 QRS: 40 QRSD: 94 T: -45 QT: 232 QTc: 318 Interpretive Statements ATRIAL FIBRILLATION WITH RAPID VENTRICULAR RESPONSE WITH ABERRANT CONDUCTION OR VENTRICULAR PREMATURE COMPLEXES ST-T WAVE ABNORMALITY IN ANTEROLATERAL LEADS- CONSIDER ISCHEMIA BASELINE WANDER- I, III, AVL, AVF ABNORMAL ECG Compared to ECG 09/09/2024 12:36:23 NO SIGNIFICANT CHANGE Electronically Signed On 09-10-2024 08:34:42 CDT by Osvaldo Welch D.O.
[2024-09-09 16:10] LABS: Troponin I < 0.012 ng/mL (0.000-0.034)
--- OUTSIDE RECORDS SUMMARY | 2024-09-09 18:06 | XMS_ITS ---
Author Name Auto Generated, Auto Generated Organization [facility] Address [address] [place] [address] Phone [phone] Care Team Providers Care Statement Clerks Supervisor Name Role Phone AngelesTanian Unavailable [phone] Gurpreet Perkins Unavailable Functional Status No Results [...] ral 1 Time Daily Indication: depression 2 [id number] TueMar 07 15:00:00 EST 2022Mar 16 01:00:00 [...] * End Date: * Text: * senior care (current) use of anticoagulants* Code: * Start Date: TueMar 07 00:00:00 2022 * End Date: * Text: * senior care (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
--- OUTSIDE RECORDS SUMMARY | 2024-09-09 18:06 | XMS_ITS | Continuity of Care Document ---
Author Organization [facility] Address [address] [place] [address] [place] [address] Phone Care Team Providers Care Actuarial Science Professor Name Role Phone Aleks Jeronimo Unavailable Unavailable Procedures Procedure Date Cataract Kit SEC MV Medical Tax Advance Directives Directive Yes / No Effective Date File Name No Information Encounters Encounter Description Practice Location Reason(s) For Visit Diagnoses Date Provider Providers Copied on Encounter [facility], [address] [place] [address] [address], [place], [place], [id number], [place] tel:[phone] [address] Katie No Information Phani Fink. [address] [place], [address], [place]. tel:[phone] Family History Family Member Type Diagnosis Age [...]
--- NOTE | 2024-09-09 18:15 | ADMGEN ---
This patient, Maria Dolores Henry, was admitted to IMU Room 212-01 @ 1815. Patient/family oriented to hospital policies and general routines including ID bracelet, bed and alarms, visiting hours, pain management, procedures, bathroom and other care routines, personal items, smoking policy, room service/diet, and visiting hours. Information on how to activate the Rapid Response Team has been discussed. Patient/Family are encouraged to report perceived risks to care and to ask questions if they do not understand what they are told or what they should do.
--- NOTE | 2024-09-09 18:33 | PC.NURSE ---
This RN asked the patient if her advance directive has changed since April 2023 and the patient stated that it had not changed.
[2024-09-09 19:34] LABS: Troponin I < 0.012 ng/mL (0.000-0.034)
--- NOTE | 2024-09-09 19:43 | PM.IMHP ---
H&P: HPI History of Present Illness Date/Time: 09/09/24 19:43 Chief Complaint: Shortness of breath Narrative: 78-year-old female with a past medical history of COPD, CAD status post-PCI, and AFib visited the ED due to shortness of breath. Pertinent ED labs:WBC 10.8,HgB 6.7, PLT 202, Na 142, K 3.3, Cr 0.84 BNP:2600 CXR:1. Worsening still mild to moderate edema and new small bilateral pleural effusions, right greater than left, consistent with given history of congestive heart failure. 2. Mild cardiomegaly. 09/06/24 CT chest: Small bilateral pleural effusions with interstitial pulmonary edema. Stable right breast implant versus less likely mass. Correlate with prior history. Stable T8 compression fracture. The patient is admitted in the setting of COPD exacerbation and anemia. Regarding COPD, the patient started on Ceftriaxone and Doxycycline, and pulmonology will be consulted. A patient recently saw Dr. Donato on August 20 and and was prescribed Stiolto Respimat 2.5-2.5 at one puff twice daily and rescue albuterol at two puffs as needed for shortness of breath or wheezing every 4 hours. Baseline patient oxygen 6-8 L at rest. In regards to PMHx NESTOR, she has one sputum with NESTOR and three negative sputum. I had a long discussion with Ms. MILO SMITH. She reports seeing Dr. Donato on 09/05 and underwent a walk test, during which she was advised to have 4 L at rest, 6 L at sleep, and was treated during exertion. Additionally, it was reported that the patient takes Stilto,and Lasix 40mg PO BID but it couldn't be found in the home medication.Called pharmacy and waiting for confirmation In regards to pleural effusion will order thoracentesis with the pleural effusion studies. I will start Lasix 40 mg IV b.i.d. I will also repeat the echocardiogram in the AM to reassess valvular status. The patient refuses ABG. The patient was previously followed by Dr. Romero, a Type Photography Supervisor, but is currently seeing Dr. Lilly. The patient was previously taking amiodarone but is currently on diltiazem and Eliquis for AFib. She also reported the patient takes Lasix 40 mg p.o. b.i.d.I will consult cardiology for possible CHF exacerbation and medication reconciliation. Regarding acute anemia, the patient's FOBT is positive, and GI consultation is indicated. The patient received 1 U PRBC.. The patient had a remote history of GI bleeding 10-12 years ago but couldn't tell the details; she says they fixed it but gave a warning about possible rebleeding. Review of Systems Review of Systems: All systems reviewed & are unremarkable except as noted in HPI and below PMFSH Past Medical History Medical History Minimal cognitive impairment Diarrhea Abdominal bloating Trochanteric fracture Chronic anticoagulation Chronic kidney disease, stage 3 Hyperlipidemia Hypertension Paroxysmal atrial fibrillation Compression fracture of body of thoracic vertebra Anxiety Surgical History Surgical History History of back surgery History of partial colectomy History of cardiac catheterization History of coronary artery stent placement History of hysterectomy History of cholecystectomy History of appendectomy History of tonsillectomy Family History Family History Father Patient's father is Family history of emphysema Mother Patient's mother is Family history of chronic obstructive pulmonary disease Other Heart disease Heart failure Social History Social History Smoking packs per day: 1.5 Smoking cigarettes per day: 30.0 Years smoked: 55 Smoking pack-years: 82.50 Smoking status: Former smoker Tobacco type: cigarettes Second hand tobacco smoke exposure: No Smoking end date: 01/09/23 Alcohol intake: never Drinks per week: 0 Substance use: never Substance use type: does not use Do You Feel Safe in your Home?: Yes Lack of Transportation: No Lack of Food: Never True Current Housing: I Have Housing Concerned About Future Housing: No Difficulty Paying Gas/Electric Bills: No Difficulty Paying for Meds: No Currently Unemployed: No Education: Decline to Answer Difficulty w/ Childcare or Family Care: No Living arrangements: assisted living Additional living arrangements comments: currently living at [place] Occupation/Education: retired Spiritual care concerns: No Meds Home Medications and Allergies Home Medications ?Medication ?Instructions ?Recorded ?Confirmed ?Type apixaban 5 mg tablet (Eliquis) 5 mg PO BID 08/07/20 09/09/24 History clopidogrel 75 mg tablet 75 mg PO DAILY 02/03/23 09/09/24 History diltiazem HCl 240 mg 360 mg PO DAILY 10/05/23 09/09/24 History capsule,extended release 24 hr sertraline 100 mg tablet 200 mg (2 x 100 mg) PO DAILY #180 11/14/23 09/09/24 Rx tabs albuterol sulfate 90 mcg/actuation 2 puff inhalation Q4H PRN 12/01/23 09/09/24 History aerosol inhaler Shortness Of Breath Or Wheezing atorvastatin 10 mg tablet 10 mg PO HS 03/12/24 09/09/24 History colestipol 1 gram tablet 2 g PO DAILY 03/12/24 09/09/24 History ipratropium 0.5 mg-albuterol 3 mg 3 ml inhalation Q4H PRN shortness 06/29/24 09/09/24 Rx (2.5 mg base)/3 mL nebulization of breath or wheezing #180 mL soln alprazolam 1 mg tablet (Xanax) 1 mg PO QHS #90 tabs 08/24/24 09/09/24 Rx furosemide 40 mg tablet 20 mg PO DAILY 09/09/24 09/09/24 History hydrocodone 5 mg-acetaminophen 325 1 tablet PO Q6H PRN pain 09/09/24 09/09/24 History mg tablet Allergies Allergy/AdvReac Type Severity Reaction Status Date / Time steroids AdvReac Mild Confusion Uncoded 09/09/24 12:49 Vital Signs Vital Signs - 24 hr 09/09/24 12:27 09/09/24 12:34 09/09/24 13:19 Temperature 97.8 F Pulse Rate 109 H 114 H 104 H Respiratory Rate 24 H 17 Blood Pressure 132/56 L Pulse Oximetry 94 100 Oxygen Delivery Non-Rebreather Mask BiPAP Oxygen Flow Rate 15 09/09/24 13:29 09/09/24 13:52 09/09/24 13:53 Temperature Pulse Rate 103 H 114 H Respiratory Rate 25 H 21 H Blood Pressure 127/65 Pulse Oximetry 94 94 Oxygen Delivery CPAP Oxygen Flow Rate 09/09/24 15:37 09/09/24 15:53 09/09/24 16:23 Temperature 97.4 F L 98.8 F Pulse Rate 117 H 114 H 119 H Respiratory Rate 28 H 22 H 31 H Blood Pressure 113/83 133/62 Pulse Oximetry 92 96 93 Oxygen Delivery BiPAP Oxygen Flow Rate 09/09/24 16:47 09/09/24 16:53 09/09/24 17:30 Temperature 97.8 F Pulse Rate 109 H 105 H 110 H Respiratory Rate 26 H 23 H 29 H Blood Pressure 119/89 119/89 132/74 Pulse Oximetry 99 93 91 Oxygen Delivery Oxygen Flow Rate 09/09/24 18:30 09/09/24 18:34 Temperature 98.1 F Pulse Rate 104 H 109 H Respiratory Rate 30 H 30 H Blood Pressure 146/60 H Pulse Oximetry 94 99 Oxygen Delivery BiPAP Oxygen Flow Rate Exam Narrative: General appearance: Well-developed, well-nourished Skin: Normal color Head: Normocephalic, nontraumatic Eyes: Clear conjunctiva ENT: Oropharynx normal, ears normal, nose normal Neck: Supple, nontender Chest and respiratory: Airway patent, [place] of air entry bilaterally, no wheezing, no rhonchi, no basilar rales slight labored breathing Heart: Regular rate/rhythm Abdomen: Soft, nontender, no organomegaly, quiet bowel sounds, guaiac stool positive for blood Vascular: Normal peripheral pulses, normal capillary refill. 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 tested, no gross motor deficit H&P: Results Labs Labs: Short CBC 09/09/24 Range/Units 12:50 WBC 10.8 H (4.5-10.0) K/mm3 Hgb 6.7 L* (12.0-15.0) g/dL Hct 23.3 L (37.0-47.0) % Plt Count 202 (150-375) k/mm3 BMP 09/09/24 12:50 Sodium 142 Potassium 3.3 L Chloride 105 Carbon Dioxide 28 BUN 17 Creatinine 0.84 Glucose 143 H Calcium 9.2 Cardiac Enzymes 09/09/24 09/09/24 09/09/24 Range/Units 12:50 15:42 19:06 Troponin I < 0.012 < 0.012 < 0.012 (0.000-0.034) ng/mL Liver Function 09/09/24 Range/Units 12:50 Total Bilirubin 0.4 (0.2-1.3) mg/dL AST 21 (14-36) U/L ALT 13 (6-35) U/L Alkaline Phosphatase 80 (38-126) U/L Albumin 4.1 (3.5-5.1) g/dL Assessment and Plan Assessment and plan (1) COPD exacerbation: Code(s): J44.1 - Chronic obstructive pulmonary disease with (acute) exacerbation Status: Acute Assessment and Plan: Previous history of pleural effusion which indicated transudative Baseline 6-8 L at rest Continue DuoNeb q.4 hours Started ceftriaxone and doxycycline Comorbid conditions CHF Patient denies smoking and KAREEM Came from ED with BiPAP but currently on HFNC Pending medication reconciliation from pharmacy Pulmonology consulted CT Chest:Small bilateral pleural effusions with interstitial pulmonary edema. Stable right breast implant versus less likely mass. Correlate with prior history. Stable T8 compression fracture. (2) SOB (shortness of breath): Code(s): R06.02 - Shortness of breath Status: Acute Assessment and Plan: as mentioned above (3) Anxiety: Code(s): F41.9 - Anxiety disorder, unspecified Status: Acute Assessment and Plan: Continue Xanax 1 mg p.o. q.h.s. (4) Hypertension: Qualifiers: Hypertension type: primary hypertension Qualified Code(s): I10 - Essential (primary) hypertension Code(s): I10 - Essential (primary) hypertension Status: Chronic Assessment and Plan: Diltiazem 360 mg p.o. q.d. (5) CHF (congestive heart failure): Code(s): I50.9 - Heart failure, unspecified Status: Acute Assessment and Plan: Echo performed on March 2024 showing right to left shunt by positive agitated saline study, normal LV size and systolic fxn with EF 50-55%, dilated RV with preserved systolic function and moderate , moderate AI and mild MR. In Mar 2023, EF 60-65%, Grade II diastolic dysfunction, akinetic basal inferior wall and moderate , moderate MR and mild pulmonary HTN. Moderate has worsened with ESTRELLITA 1.5 -> 1.1cm2 now. Repeat ECHO Start Lasix 40 mg IV BID Cardiology consulted (6) Chronic anticoagulation: Code(s): Z79.01 - detention (current) use of anticoagulants Status: Acute Assessment and Plan: Holding Eliquis and clopidogrel for thoracentesis (7) NESTOR (mycobacterium avium-intracellulare): Code(s): A31.0 - Pulmonary mycobacterial infection Status: Acute Assessment and Plan: 1 sputum with NESTOR and 3 negative sputums. Follows up with the pulmonology as outpatient (8) Anemia: Code(s): D64.9 - Anemia, unspecified Status: Chronic Assessment and Plan: Order PPI b.i.d. Received 1 unit PRBC Monitor H&H FOBT positive Holding Eliquis and Plavix GI consulted (9) Pleural effusion: Code(s): J90 - Pleural effusion, not elsewhere classified Status: Acute Assessment and Plan: Ordered thoracentesis Order Lasix 40 mg IV b.i.d. Plan Holding anticoagulation due to possible GI bleed Ordered [facility] Hospitalist [facility] Advance Care Plan I have confirmed that the patient's Advanced Care Plan is present, code status is documented, or surrogate decision maker is listed in patient medical record.: Yes Medication Reconciliation I have utilized all available resources to obtain, update and review the patients current medications (includes all prescriptions, OTC, herbals, cannabis, and nutritional supplements).: Yes
[2024-09-09] MEDS: IPRATROPIUM 0.5 MG/ALBUTEROL SULFATE 2.5 MG AMPUL.NEB 3 ML INHALATION (20:04)
[2024-09-09 20:30] LABS: Hematocrit 28.3 % (37.0-47.0); Hemoglobin 7.8 g/dL (12.0-15.0)
[2024-09-09] MEDS: DOXYCYCLINE 100 MG/NS 100 ML 100 MG/100 ML BAG IVPB (20:30)
[2024-09-09] MEDS: PANTOPRAZOLE SODIUM IV 40 MG VIAL IV PUSH (21:30)
[2024-09-09] MEDS: POTASSIUM CHLORIDE 20 MEQ ER TABLET PO (21:41)
[2024-09-09] MEDS: cefTRIAXone 2 GM/NS 100 ML 2 GM/100 ML BAG IVPB (21:42)
[2024-09-09] MEDS: ALPRAZolam (*CRX) 0.5 MG TABLET 1 MG PO (21:42)
[2024-09-09] MEDS: ATORVASTATIN 10 MG TABLET PO (21:42)
[2024-09-10] VITALS (31 sets, daily range): BP systolic 129–150; BP diastolic 48–98; PULSE 66–121; RESP 18–26; TEMP 36.6–36.9; O2SAT 90–100
[2024-09-10] MEDS: IPRATROPIUM 0.5 MG/ALBUTEROL SULFATE 2.5 MG AMPUL.NEB 3 ML INHALATION ×3 (01:59→14:45)
[2024-09-10 05:45] LABS: Hematocrit 23.9 % (37.0-47.0); Mean Corpuscular HGB Conc 28.9 g/dl (32-36); Mean Corpuscular Hemoglobin 26.1 pg (26-34); Mean Corpuscular Volume 90.5 fl (80-100); Mean Platelet Volume 8.9 fl (7.4-10.4); Platelet Count Result 169 k/mm3 (150-375); Red Blood Count 2.64 M/mm3 (4.2-5.4); Red Cell Distribution Width 16.8 % (11.5-14.5); White Blood Count 7.1 K/mm3 (4.5-10.0)
[2024-09-10 05:55] LABS: Hemoglobin 6.9 g/dL (12.0-15.0)
[2024-09-10 05:59] LABS: Alanine Aminotransferase 10 U/L (6-35); Albumin Level 3.7 g/dL (3.5-5.1); Alkaline Phosphatase 72 U/L (38-126); Anion Gap 8 mmol/L (4-12); Aspartate Amino Transferase 16 U/L (14-36); Bilirubin,Total 0.3 mg/dL (0.2-1.3); Blood Urea Nitrogen 11 mg/dL (7-17); Calcium 8.6 mg/dL (8.4-10.2); Carbon Dioxide 26 mmol/L (22-30); Chloride 105 mmol/L (98-107); Estimated CRCL calculation 54 ml/min; Estimated Glomerular Filt Rate > 60; Glucose 125 mg/dL (65-110); Potassium 3.4 mmol/L (3.4-5.0); Sodium 139 mmol/L (137-145)
[2024-09-10 06:05] LABS: NT Pro B Type Natriuretic Pept 1880 pg/mL (19.9-100)
[2024-09-10] MEDS: SODIUM CHLORIDE 0.9% IV 250 ML 30 ML (06:30)
[2024-09-10] MEDS: TUBING, BLOOD PLUM PUMP TUBING 1 EACH XX (06:37)
--- NOTE | 2024-09-10 07:45 | P.PNIM_ITS ---
Progress Note: A&P Assessment and Plan (1) COPD exacerbation: Code(s): J44.1 - Chronic obstructive pulmonary disease with (acute) exacerbation Status: Acute Assessment and Plan: Previous history of pleural effusion which indicated transudative Baseline 6-8 L at rest Continue DuoNeb q.4 hours Started ceftriaxone and doxycycline Comorbid conditions CHF Patient denies smoking and KAREEM Came from ED with BiPAP but currently on HFNC Pending medication reconciliation from pharmacy Pulmonology consulted CT Chest:Small bilateral pleural effusions with interstitial pulmonary edema. Stable right breast implant versus less likely mass. Correlate with prior history. Stable T8 compression fracture. (2) SOB (shortness of breath): Code(s): R06.02 - Shortness of breath Status: Acute Assessment and Plan: as mentioned above (3) Anxiety: Code(s): F41.9 - Anxiety disorder, unspecified Status: Acute Assessment and Plan: Continue Xanax 1 mg p.o. q.h.s. (4) Hypertension: Qualifiers: Hypertension type: primary hypertension Qualified Code(s): I10 - Essential (primary) hypertension Code(s): I10 - Essential (primary) hypertension Status: Chronic Assessment and Plan: Diltiazem 360 mg p.o. q.d. (5) CHF (congestive heart failure): Code(s): I50.9 - Heart failure, unspecified Status: Acute Assessment and Plan: Echo performed on March 2024 showing right to left shunt by positive agitated saline study, normal LV size and systolic fxn with EF 50-55%, dilated RV with preserved systolic function and moderate , moderate AI and mild MR. In Mar 2023, EF 60-65%, Grade II diastolic dysfunction, akinetic basal inferior wall and moderate , moderate MR and mild pulmonary HTN. Moderate has worsened with ESTRELLITA 1.5 -> 1.1cm2 now. Repeat ECHO Start Lasix 40 mg IV BID Cardiology consulted (6) Chronic anticoagulation: Code(s): Z79.01 - shelter (current) use of anticoagulants Status: Acute Assessment and Plan: Holding Eliquis and clopidogrel for thoracentesis (7) NESTOR (mycobacterium avium-intracellulare): Code(s): A31.0 - Pulmonary mycobacterial infection Status: Acute Assessment and Plan: 1 sputum with NESTOR and 3 negative sputums. Follows up with the pulmonology as outpatient (8) Anemia: Code(s): D64.9 - Anemia, unspecified Status: Chronic Assessment and Plan: Order PPI b.i.d. Received 1 unit PRBC Monitor H&H FOBT positive Holding Eliquis and Plavix GI consulted (9) Pleural effusion: Code(s): J90 - Pleural effusion, not elsewhere classified Status: Acute Assessment and Plan: Ordered thoracentesis Order Lasix 40 mg IV b.i.d. Plan Holding anticoagulation due to possible GI bleed Ordered SCD Subjective Date/time seen: 09/10/24 07:45 Interval history: Patient is currently receiving 2nd unit PRBC. GI and pulmonology evaluation pending. Cardiology has been consulted for medication reconciliation and GDMT. Review of Systems Review of Systems: All systems reviewed & are unremarkable except as noted in HPI and below Exam Narrative: General appearance: Well-developed, well-nourished Skin: Normal color Head: Normocephalic, nontraumatic Eyes: Clear conjunctiva ENT: Oropharynx normal, ears normal, nose normal Neck: Supple, nontender Chest and respiratory: Airway patent, [place] of air entry bilaterally, no wheezing, no rhonchi, no basilar rales slight labored breathing Heart: Regular rate/rhythm Abdomen: Soft, nontender, no organomegaly, quiet bowel sounds, guaiac stool positive for blood Vascular: Normal peripheral pulses, normal capillary refill. Musculoskeletal: Normal range of motion, nontender back Neurologic: Alert and oriented ?3, [employer] is normal as tested, no gross motor deficit Objective Data Vital Signs Vital Signs: Vital Signs - 24 hr 09/09/24 12:27 09/09/24 12:34 09/09/24 13:19 Temperature 97.8 F Pulse Rate 109 H 114 H 104 H Respiratory Rate 24 H 17 Blood Pressure 132/56 L Pulse Oximetry 94 100 Oxygen Delivery Non-Rebreather Mask BiPAP Oxygen Flow Rate 15 Fraction of Inspired Oxygen 09/09/24 13:29 09/09/24 13:52 09/09/24 13:53 Temperature Pulse Rate 103 H 114 H Respiratory Rate 25 H 21 H Blood Pressure 127/65 Pulse Oximetry 94 94 Oxygen Delivery CPAP Oxygen Flow Rate Fraction of Inspired Oxygen 09/09/24 15:37 09/09/24 15:53 09/09/24 16:23 Temperature 97.4 F L 98.8 F Pulse Rate 117 H 114 H 119 H Respiratory Rate 28 H 22 H 31 H Blood Pressure 113/83 133/62 Pulse Oximetry 92 96 93 Oxygen Delivery BiPAP Oxygen Flow Rate Fraction of Inspired Oxygen 09/09/24 16:47 09/09/24 16:53 09/09/24 17:30 Temperature 97.8 F Pulse Rate 109 H 105 H 110 H Respiratory Rate 26 H 23 H 29 H Blood Pressure 119/89 119/89 132/74 Pulse Oximetry 99 93 91 Oxygen Delivery Oxygen Flow Rate Fraction of Inspired Oxygen 09/09/24 18:30 09/09/24 18:34 09/09/24 20:00 Temperature 98.1 F Pulse Rate 104 H 109 H 107 H Respiratory Rate 30 H 30 H 26 H Blood Pressure 146/60 H Pulse Oximetry 94 99 97 Oxygen Delivery BiPAP BiPAP Oxygen Flow Rate Fraction of Inspired Oxygen 35 09/09/24 20:00 09/09/24 20:00 09/09/24 20:04 Temperature 97.7 F Pulse Rate 107 H 103 H 104 H Respiratory Rate 28 H 29 H Blood Pressure 122/71 Pulse Oximetry 97 95 Oxygen Delivery BiPAP Oxygen Flow Rate Fraction of Inspired Oxygen 35 09/09/24 20:04 09/09/24 20:04 09/09/24 20:15 Temperature Pulse Rate 104 H 104 H 111 H Respiratory Rate 29 H 29 H 28 H Blood Pressure Pulse Oximetry 95 Oxygen Delivery BiPAP Oxygen Flow Rate Fraction of Inspired Oxygen 09/09/24 23:00 09/09/24 23:00 09/09/24 23:57 Temperature Pulse Rate 103 H 99 Respiratory Rate 22 H Blood Pressure Pulse Oximetry 94 95 Oxygen Delivery Nasal Cannula High Flow Therapy with Na Oxygen Flow Rate 8 Fraction of Inspired Oxygen 09/09/24 23:58 09/09/24 23:58 09/10/24 01:59 Temperature 98.3 F Pulse Rate 99 99 99 Respiratory Rate 22 H Blood Pressure 127/64 Pulse Oximetry 95 95 Oxygen Delivery High Flow Nasal Cannula Oxygen Flow Rate Fraction of Inspired Oxygen 09/10/24 01:59 09/10/24 01:59 09/10/24 02:15 Temperature Pulse Rate 99 99 97 Respiratory Rate 20 20 20 Blood Pressure Pulse Oximetry 95 Oxygen Delivery High Flow Nasal Cannula Oxygen Flow Rate 8 Fraction of Inspired Oxygen 09/10/24 03:00 09/10/24 03:47 09/10/24 03:49 Temperature Pulse Rate 96 96 96 Respiratory Rate 22 H Blood Pressure Pulse Oximetry 95 Oxygen Delivery High Flow Therapy with Na Oxygen Flow Rate 8 Fraction of Inspired Oxygen 09/10/24 05:00 09/10/24 06:21 09/10/24 06:40 Temperature 97.8 F 98.3 F Pulse Rate 100 108 H 103 H Respiratory Rate 20 20 Blood Pressure 132/48 L 132/61 Pulse Oximetry 95 96 Oxygen Delivery Oxygen Flow Rate Fraction of Inspired Oxygen 09/10/24 06:55 Temperature 97.8 F Pulse Rate 103 H Respiratory Rate 20 Blood Pressure 132/58 L Pulse Oximetry 95 Oxygen Delivery Oxygen Flow Rate Fraction of Inspired Oxygen Intake/Output Intake/Output: Intake & Output 09/07/24 09/08/24 09/09/24 09/10/24 23:59 23:59 23:59 23:59 Intake Total 550 247.5 Output Total 400 Balance 550 -152.5 Meds/Results Medications: Active Medications Generic Name Dose Route Start Last Admin Trade Name Freq PRN Reason Stop Dose Admin Acetaminophen 650 mg 09/09/24 15:42 Acetaminophen 325 Mg Tablet PO Q4H PRN Mild Pain (1-3) or Fever Hydrocodone Bitart/Acetaminophen 1 tab 09/09/24 20:00 Hydrocodone/Acetaminophen (*Crx) 5-325 Mg Tablet PO Q6H PRN pain 4-6 Albuterol 2 puff 09/09/24 20:00 Albuterol Sulfate (*Sp) Aerosol 1 Puff INHALATION Q4HRT PRN Shortness Of Breath Or Wheezing Albuterol/Ipratropium 3 ml 09/09/24 20:00 09/10/24 01:59 Ipratropium 0.5 Mg/Albuterol Sulfate 2.5 Mg Ampul.Neb 3 Ml INHALATION 3 ml Q6HRT HEIDE Administration Albuterol/Ipratropium 3 ml 09/09/24 20:00 Ipratropium 0.5 Mg/Albuterol Sulfate 2.5 Mg Ampul.Neb 3 Ml INHALATION Q4H PRN shortness of breath or wheezing Alprazolam 1 mg 09/09/24 21:00 09/09/24 21:42 Alprazolam (*Crx) 0.5 Mg Tablet PO 1 mg QHS HEIDE Administration Atorvastatin Calcium 10 mg 09/09/24 21:00 09/09/24 21:42 Atorvastatin 10 Mg Tablet PO 10 mg HS HEIDE Administration Colestipol HCl 2 gm 09/10/24 09:00 Colestipol Hcl 1 Gm Tablet PO DAILY HEIDE Diltiazem HCl 360 mg 09/10/24 09:00 Diltiazem Hcl Cd 180 Mg Cap.24hr PO DAILY [facility] Furosemide 20 mg 09/10/24 09:00 Furosemide 20 Mg Tablet PO DAILY [facility]IDE Ceftriaxone Sodium 2 gm in 100 mls @ 200 mls/hr 09/09/24 20:00 09/09/24 22:15 Rocephin 2 Gm/Ns 100 Ml IVPB Infused Q24H HEIDE Infusion Doxycycline Hyclate 100 mg in 100 mls @ 100 mls/hr 09/09/24 21:00 09/09/24 21:30 Vibramycin 100 Mg/Ns 100 Ml IVPB Infused Q12HR HEIDE Infusion Pantoprazole Sodium 40 mg 09/09/24 21:00 09/09/24 21:30 Pantoprazole Sodium Iv 40 Mg Vial IV PUSH 40 mg Q12HR HEIDE Administration Perflutren Lipid Microsphere 0 ml 09/09/24 20:23 Perflutren Lipid Microspheres 1.5 Ml Vial Diluted To 10 Ml Total Volume IV PUSH 09/12/24 20:23 ONCE PRN adequate visualization Protocol Potassium Chloride 20 meq 09/09/24 17:00 09/09/24 21:41 Potassium Chloride 20 Meq Er Tablet PO 20 meq BID HEIDE Administration Sertraline HCl 200 mg 09/10/24 09:00 Sertraline Hcl 50 Mg Tablet PO DAILY [facility] Radiology Results: ITS Impressions Chest X-Ray 09/09/24 12:58 IMPRESSION: 1. Worsening still mild to moderate edema and new small bilateral pleural effusions, right greater than left consistent with given history of congestive heart failure. 2. Mild cardiomegaly. Labs Labs: Laboratory Results - last 24 hr 09/09/24 09/09/24 09/09/24 12:50 13:29 15:42 WBC 10.8 H RBC 2.50 L Hgb 6.7 L* Hct 23.3 L MCV 93.2 MCH 26.8 MCHC 28.8 L RDW 15.7 H Plt Count 202 MPV 8.9 Immature Gran % (Auto) 0.4 Neut % (Auto) 78.4 H Lymph % (Auto) 11.1 L [place] % (Auto) 9.0 H Eos % (Auto) 0.8 Baso % (Auto) 0.3 Lymph # (Auto) 1.20 [place] # (Auto) 1.0 H Eos # (Auto) 0.1 Baso # (Auto) 0.0 Abs Immat Gran (auto) 0.04 H Absolute Neuts (auto) 8.4 H Absolute Nucleated RBC 0.020 H Band Neutrophils % Not Reportable Nucleated RBC % 0.2 Platelet Estimate Adequate Hypochromasia 1+ Schistocytes None seen PT 17.2 H INR 1.4 APTT 32.6 Sodium 142 Potassium 3.3 L Chloride 105 Carbon Dioxide 28 Anion Gap 9 BUN 17 Creatinine 0.84 Estim Creat Clear Calc 44 Estimated GFR > 60 Glucose 143 H Lactic Acid 1.7 Calcium 9.2 Total Bilirubin 0.4 AST 21 ALT 13 Alkaline Phosphatase 80 Troponin I < 0.012 < 0.012 NT-Pro-B Natriuret Pep 2600 H Total Protein 7.0 Albumin 4.1 Influenza A (RT-PCR) Negative Influenza B (RT-PCR) Negative RSV (RT-PCR) Negative SARS-CoV-2 RNA (RT-PCR) Negative Blood Type A Negative Antibody Screen Negative Crossmatch See Detail 09/09/24 09/09/24 09/10/24 18:50 19:06 05:37 WBC 7.1 RBC 2.64 L Hgb 7.8 L 6.9 L* Hct 28.3 L 23.9 L MCV 90.5 MCH 26.1 MCHC 28.9 L RDW 16.8 H Plt Count 169 MPV 8.9 Immature Gran % (Auto) Neut % (Auto) Lymph % (Auto) [place] % (Auto) Eos % (Auto) Baso % (Auto) Lymph # (Auto) [place] # (Auto) Eos # (Auto) Baso # (Auto) Abs Immat Gran (auto) Absolute Neuts (auto) Absolute Nucleated RBC Band Neutrophils % Nucleated RBC % Platelet Estimate Hypochromasia Schistocytes PT INR APTT Sodium 139 Potassium 3.4 Chloride 105 Carbon Dioxide 26 Anion Gap 8 BUN 11 D Creatinine 0.71 Estim Creat Clear Calc 54 Estimated GFR > 60 Glucose 125 H Lactic Acid Calcium 8.6 Total Bilirubin 0.3 AST 16 ALT 10 Alkaline Phosphatase 72 Troponin I < 0.012 NT-Pro-B Natriuret Pep 1880 H Total Protein 7.0 Albumin 3.7 Influenza A (RT-PCR) Influenza B (RT-PCR) RSV (RT-PCR) SARS-CoV-2 RNA (RT-PCR) Blood Type Antibody Screen Crossmatch Hospitalist MIPS Advance Care Plan I have confirmed that the patient's Advanced Care Plan is present, code status is documented, or surrogate decision maker is listed in patient medical record.: Yes Medication Reconciliation I have utilized all available resources to obtain, update and review the patients current medications (includes all prescriptions, OTC, herbals, cannabis, and nutritional supplements).: Yes
--- NOTE | 2024-09-10 07:57 | WPDGICN ---
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 Anemia of chronic disease/heme-positive stool/melena: Per patient last EGD was ?a long time ago?. Colonoscopy performed by Dr. Ordonez prior to 2018, endoscopy records not available but per patient it was normal. Patient with history of chronic anemia dating back to January 2023. Patient with multiple comorbidities that may be contributing to chronic anemia including history of partial colectomy, chronic kidney disease stage 3, COPD requiring chronic O2 use at 8 L per nasal cannula. Consistent anemia dating back to January of 2023. Labs 03/15/2024 showed total iron 38, TIBC 455, iron saturation 8%, ferritin 44.90, B12 and folate normal. Labs today showed WBC 7, HGB 7, HCT 24, MCV 91 platelets 169. Patient noted to have heme-positive stools. Patient states for the past week she has been having dark tarry stools that were malodorous. At first she thought that the dark stools were related to her eating a lot of chocolate sweets. Last BM was today and patient states that it was still dark in color. Patient was on Plavix and Eliquis prior to admission. Denies any NSAID or aspirin use. DDX: Anemia likely multifactorial given multiple comorbidities and current complaints of melena. Patient received 1 unit of PRBCs this admission We discussed endoscopic evaluation with EGD the patient states she does not wish to have any endoscopic evaluation performed and would rather take a more observational approach. Patient is aware that if her hemoglobin does not stabilize we may have to re-evaluate possible need for EGD. Patient is agreeable with this plan. Care with NSAIDs, aspirin, and anticoagulation Continue Protonix 40 mg b.i.d. Primary care team to continue monitoring H&H and transfuse as needed to keep HGB > 7 2. Chronic diarrhea: Patient with known chronic diarrhea likely bile acid diarrhea. She has been on colestipol daily for many years. On her current regimen she is having daily bowel movements that are formed non urgent. She denies any recent change in bowel frequency or rectal bleeding. Continue colestipol If diarrhea returns or is not controlled cholesterol consider stool studies Thank you very much for allowing me to share in the care of this very nice patient. This report may have been done utilizing a voice recognition system. Attempts have been made to correct errors. However, there may be uncorrected grammatical, spelling, and recognition errors present. GI Consult Note Consult date/time: 09/10/24 07:57 Reason for consult: Anemia HPI: Maria Dolores Henry is a 78 year old femalewith past medical surgical history of bilateral mastectomy, partial colectomy, cardiac catheterization with stent placement, chronic kidney disease stage 3, HLD, HTN, AFib, anxiety, hysterectomy, cholecystectomy, COPD, CHF, appendectomy, and x3. She presented to the emergency room yesterday with complaints of shortness of breath and wheezing. GI has been consulted for GI bleed. Patient states she has had many recent health issues including falls, respiratory illness, knee issues requiring rehab. Patient states that due to her frequent health issues and hospitalization her appetite has been down but she states that it is more related to not liking the food she is offered. She has occasional reflux and takes Nexium and Tums as needed. Reflux is typically secondary to dietary indiscretions and when these foods are avoided reflux is controlled. She denies any abdominal pain, nausea, vomiting, bloating, tiny aphasia, dysphagia, regurgitation, early satiety. With the use of colestipol she is having daily bowel movements are formed and not urgent but over the past week has been having dark tarry stools. At first she thought that her dark stools were related to her eating too much chocolate. Last BM was today and per patient was still dark colored. She denies any constipation or recent hematochezia. She is on Eliquis and Plavix prior to admission. Denies any NSAID or aspirin use. Patient quit smoking approximately 1 year ago. She is a non drinker and nonsmoker. Family history positive for maternal cousin with pancreatic cancer and maternal aunt with liver cancer. There is also an extensive family history of breast cancer. ENDOSCOPY HISTORY: EGD: Patient states she had a history of an EGD but states that it was ?many many years ago?. COLONOSCOPY: Per patient she believes that her last colonoscopy was performed by Dr. Ordonez ?many years ago?. Patient states that her colonoscopy was normal at that time. LABS AND STOOL STUDIES: Labs 09/10/2024: Sodium 139, potassium 3.4, BUN 11, creatinine 0.71, GFR >60, calcium 8.6 WBC 7, Hgb 7, Hct 24, MCV 91, platelets 169, INR 1.4 Total bilirubin 0.3, AST 16, ALT 10, Alkaline Phos 72, albumin 3.7 Labs 03/15/2024 Total iron 38, TIBC 455, iron sat 8%, ferritin 44.90 IMAGING: Chest Xray 09/09/2024: IMPRESSION: 1. Worsening still mild to moderate edema and new small bilateral pleural effusions, right greater than left consistent with given history of congestive heart failure. 2. Mild cardiomegaly. Review of Systems Constitutional: Constitutional: Reports as per HPI ENT: Reports as per HPI Cardiovascular: Cardiovascular: Reports as per HPI, Denies chest pain and Reports dyspnea Respiratory: Respiratory: Denies cough and Reports dyspnea Comments: Patient was on 8 L of O2 per nasal cannula prior to admission Gastrointestinal: Gastrointestinal: Reports as per HPI Musculoskeletal: Musculoskeletal: Reports as per HPI Integumentary/Breasts: Skin/Breast: Reports as per HPI Psychiatric: Psychiatric: Reports as per HPI Endocrine: Endocrine: Reports no additional endocrine complaints Hematologic/Lymphatic: Hematologic/Lymphatic: Reports no additional hematologic/lymphatic complaints [facility] Past Medical History Medical History Minimal cognitive impairment Diarrhea Abdominal bloating Trochanteric fracture Chronic anticoagulation Chronic kidney disease, stage 3 Hyperlipidemia Hypertension Paroxysmal atrial fibrillation Compression fracture of body of thoracic vertebra Anxiety Surgical History Surgical History History of back surgery History of partial colectomy History of cardiac catheterization History of coronary artery stent placement History of hysterectomy History of cholecystectomy History of appendectomy History of tonsillectomy Family History Family History Father Patient's father is Family history of emphysema Mother Patient's mother is Family history of chronic obstructive pulmonary disease Other Heart disease Heart failure Social History Social History Smoking packs per day: 1.5 Smoking cigarettes per day: 30.0 Years smoked: 55 Smoking pack-years: 82.50 Smoking status: Former smoker Tobacco type: cigarettes Second hand tobacco smoke exposure: No Smoking end date: 01/09/23 Alcohol intake: never Drinks per week: 0 Substance use: never Substance use type: does not use Do You Feel Safe in your Home?: Yes Lack of Transportation: No Lack of Food: Never True Current Housing: I Have Housing Concerned About Future Housing: No Difficulty Paying Gas/Electric Bills: No Difficulty Paying for Meds: No Currently Unemployed: No Education: Decline to Answer Difficulty w/ Childcare or Family Care: No Living arrangements: assisted living Additional living arrangements comments: currently living at [facility] in [place] Occupation/Education: retired Spiritual care concerns: No Meds Home Medications and Allergies Home Medications ?Medication ?Instructions ?Recorded ?Confirmed ?Type apixaban 5 mg tablet (Eliquis) 5 mg PO BID 08/07/20 09/09/24 History clopidogrel 75 mg tablet 75 mg PO DAILY 02/03/23 09/09/24 History diltiazem HCl 240 mg 360 mg PO DAILY 10/05/23 09/09/24 History capsule,extended release 24 hr sertraline 100 mg tablet 200 mg (2 x 100 mg) PO DAILY #180 11/14/23 09/09/24 Rx tabs albuterol sulfate 90 mcg/actuation 2 puff inhalation Q4H PRN 12/01/23 09/09/24 History aerosol inhaler Shortness Of Breath Or Wheezing atorvastatin 10 mg tablet 10 mg PO HS 03/12/24 09/09/24 History colestipol 1 gram tablet 2 g PO DAILY 03/12/24 09/09/24 History ipratropium 0.5 mg-albuterol 3 mg 3 ml inhalation Q4H PRN shortness 06/29/24 09/09/24 Rx (2.5 mg base)/3 mL nebulization of breath or wheezing #180 mL soln alprazolam 1 mg tablet (Xanax) 1 mg PO QHS #90 tabs 08/24/24 09/09/24 Rx furosemide 40 mg tablet 20 mg PO DAILY 09/09/24 09/09/24 History hydrocodone 5 mg-acetaminophen 325 1 tablet PO Q6H PRN pain 09/09/24 09/09/24 History mg tablet Allergies Allergy/AdvReac Type Severity Reaction Status Date / Time steroids AdvReac Mild Confusion Uncoded 09/09/24 12:49 Vital Signs Vital Signs - 24 hr 09/09/24 12:27 09/09/24 12:34 09/09/24 13:19 Temperature 97.8 F Pulse Rate 109 H 114 H 104 H Respiratory Rate 24 H 17 Blood Pressure 132/56 L Pulse Oximetry 94 100 Oxygen Delivery Non-Rebreather Mask BiPAP Oxygen Flow Rate 15 Fraction of Inspired Oxygen 09/09/24 13:29 09/09/24 13:52 09/09/24 13:53 Temperature Pulse Rate 103 H 114 H Respiratory Rate 25 H 21 H Blood Pressure 127/65 Pulse Oximetry 94 94 Oxygen Delivery CPAP Oxygen Flow Rate Fraction of Inspired Oxygen 09/09/24 15:37 09/09/24 15:53 09/09/24 16:23 Temperature 97.4 F L 98.8 F Pulse Rate 117 H 114 H 119 H Respiratory Rate 28 H 22 H 31 H Blood Pressure 113/83 133/62 Pulse Oximetry 92 96 93 Oxygen Delivery BiPAP Oxygen Flow Rate Fraction of Inspired Oxygen 09/09/24 16:47 09/09/24 16:53 09/09/24 17:30 Temperature 97.8 F Pulse Rate 109 H 105 H 110 H Respiratory Rate 26 H 23 H 29 H Blood Pressure 119/89 119/89 132/74 Pulse Oximetry 99 93 91 Oxygen Delivery Oxygen Flow Rate Fraction of Inspired Oxygen 09/09/24 18:30 09/09/24 18:34 09/09/24 20:00 Temperature 98.1 F Pulse Rate 104 H 109 H 107 H Respiratory Rate 30 H 30 H 26 H Blood Pressure 146/60 H Pulse Oximetry 94 99 97 Oxygen Delivery BiPAP BiPAP Oxygen Flow Rate Fraction of Inspired Oxygen 35 09/09/24 20:00 09/09/24 20:00 09/09/24 20:04 Temperature 97.7 F Pulse Rate 107 H 103 H 104 H Respiratory Rate 28 H 29 H Blood Pressure 122/71 Pulse Oximetry 97 95 Oxygen Delivery BiPAP Oxygen Flow Rate Fraction of Inspired Oxygen 35 09/09/24 20:04 09/09/24 20:04 09/09/24 20:15 Temperature Pulse Rate 104 H 104 H 111 H Respiratory Rate 29 H 29 H 28 H Blood Pressure Pulse Oximetry 95 Oxygen Delivery BiPAP Oxygen Flow Rate Fraction of Inspired Oxygen 09/09/24 23:00 09/09/24 23:00 09/09/24 23:57 Temperature Pulse Rate 103 H 99 Respiratory Rate 22 H Blood Pressure Pulse Oximetry 94 95 Oxygen Delivery Nasal Cannula High Flow Therapy with Na Oxygen Flow Rate 8 Fraction of Inspired Oxygen 09/09/24 23:58 09/09/24 23:58 09/10/24 01:59 Temperature 98.3 F Pulse Rate 99 99 99 Respiratory Rate 22 H Blood Pressure 127/64 Pulse Oximetry 95 95 Oxygen Delivery High Flow Nasal Cannula Oxygen Flow Rate Fraction of Inspired Oxygen 09/10/24 01:59 09/10/24 01:59 09/10/24 02:15 Temperature Pulse Rate 99 99 97 Respiratory Rate 20 20 20 Blood Pressure Pulse Oximetry 95 Oxygen Delivery High Flow Nasal Cannula Oxygen Flow Rate 8 Fraction of Inspired Oxygen 09/10/24 03:00 09/10/24 03:47 09/10/24 03:49 Temperature Pulse Rate 96 96 96 Respiratory Rate 22 H Blood Pressure Pulse Oximetry 95 Oxygen Delivery High Flow Therapy with Na Oxygen Flow Rate 8 Fraction of Inspired Oxygen 09/10/24 05:00 09/10/24 06:21 09/10/24 06:40 Temperature 97.8 F 98.3 F Pulse Rate 100 108 H 103 H Respiratory Rate 20 20 Blood Pressure 132/48 L 132/61 Pulse Oximetry 95 96 Oxygen Delivery Oxygen Flow Rate Fraction of Inspired Oxygen 09/10/24 06:55 09/10/24 07:47 09/10/24 07:49 Temperature 97.8 F 98.3 F Pulse Rate 103 H 117 H Respiratory Rate 20 18 Blood Pressure 132/58 L 129/76 Pulse Oximetry 95 95 93 Oxygen Delivery High Flow Nasal Cannula Oxygen Flow Rate 8 Fraction of Inspired Oxygen 09/10/24 07:49 09/10/24 07:53 Temperature 98.3 F Pulse Rate 111 H 117 H Respiratory Rate 20 18 Blood Pressure 129/76 Pulse Oximetry 95 Oxygen Delivery Oxygen Flow Rate Fraction of Inspired Oxygen Exam Const: General: cooperative, healthy appearing, comfortable, no acute distress and well developed Orientation/consciousness: oriented to person, oriented to place, oriented to time and patient oriented x3 HENMT: Head: normal to inspection, normocephalic and atraumatic Mouth: Yes Normal oral and palatal mucosa present and Yes moist mucous membranes Eyes: General: appearance normal, both eyes and all related structures Conjunctivae: conjunctivae normal Sclera: sclerae normal Pupils: Equal, round and reactive pupils present Neck: Neck: normal visual inspection Chest: Chest palpation & inspection: normal inspection of the chest Resp: Effort & Inspection: normal respiratory effort and able to speak in complete sentences Auscultation: diminished lung sounds Cardio: Jugular venous distension: no JVD Rate: regular rate Rhythm: regular rhythm Heart sounds: S1 normal heart sound present and S2 normal heart sound present GI: Inspection: normal to inspection GI Palp: Yes Soft to palpation and Yes No hepatosplenomegaly present Auscultation: normal bowel sounds Rectal Exam: deferred Skin: General skin exam: normal color and no rashes or lesions noted Neuro: General: oriented to person, oriented to place, oriented to time and patient oriented x3 Cranial nerves: Yes Equal, round and reactive pupils present Speech: normal speech Extrem: General: normal to inspection and no clubbing, cyanosis or edema Psych: Appearance: grossly normal and well kempt Affect: normal affect Results Labs 09/10/24 10:43 09/10/24 05:37 Labs: Short CBC 09/09/24 09/09/24 09/10/24 Range/Units 12:50 18:50 05:37 WBC 10.8 H 7.1 (4.5-10.0) K/mm3 Hgb 6.7 L* 7.8 L 6.9 L* (12.0-15.0) g/dL Hct 23.3 L 28.3 L 23.9 L (37.0-47.0) % Plt Count 202 169 (150-375) k/mm3 [facility] 09/09/24 09/10/24 12:50 05:37 Sodium 142 139 Potassium 3.3 L 3.4 Chloride 105 105 Carbon Dioxide 28 26 BUN 17 11 D Creatinine 0.84 0.71 Glucose 143 H 125 H Calcium 9.2 8.6 Cardiac Enzymes 06/01/25 06/01/25 06/01/25 Range/Units 12:50 15:42 19:06 Troponin I < 0.012 < 0.012 < 0.012 (0.000-0.034) ng/mL Liver Function 09/09/24 09/10/24 Range/Units 12:50 05:37 Total Bilirubin 0.4 0.3 (0.2-1.3) mg/dL AST 21 16 (14-36) U/L ALT 13 10 (6-35) U/L Alkaline Phosphatase 80 72 (38-126) U/L Albumin 4.1 3.7 (3.5-5.1) g/dL
[2024-09-10] MEDS: dilTIAZem HCL CD 180 MG CAP.24HR 360 MG PO (08:22)
[2024-09-10] MEDS: SERTRALINE HCL 50 MG TABLET 200 MG PO (08:23)
[2024-09-10] MEDS: POTASSIUM CHLORIDE 20 MEQ ER TABLET PO ×2 (08:23→16:41)
[2024-09-10] MEDS: FUROSEMIDE 20 MG TABLET PO (08:24)
[2024-09-10] MEDS: COLESTIPOL HCL 1 GM TABLET 2 GM PO (08:25)
[2024-09-10] MEDS: PANTOPRAZOLE SODIUM IV 40 MG VIAL IV PUSH ×2 (08:25→22:01)
--- NOTE | 2024-09-10 08:44 | PM.CNCAR ---
Assessment and Plan Assessment and plan (1) Diastolic heart failure: Code(s): I50.30 - Unspecified diastolic (congestive) heart failure Status: Chronic Assessment and Plan: Acute on chronic diastolic heart failure. Small bilateral pleural effusions and pulmonary edema. Plan for thoracentesis today She had an echo in July of this year showing moderate and preserved EF. RV dysfunction and grade II diastolic dysfunction. Since she has had a recent echo, no need to repeat one now. Continue furosemide but will shift her back to IV furosemide Daily weights Strict I&O Daily BMP (2) CAD (coronary artery disease): Code(s): I25.10 - Atherosclerotic heart disease of [place] coronary artery without angina pectoris Status: Acute Assessment and Plan: CAD with stenting in 2020. Lexiscan earlier this year showed infarct but no ischemia. Resume plavix 24h after thoracentesis. Continue statin. (3) Atrial fibrillation with RVR: Code(s): I48.91 - Unspecified atrial fibrillation Status: Acute Assessment and Plan: Persistent atrial fibrillation. Now has RVR in the setting of anemia, COPD, and CHF exacerbation. Heart rates generally 100-120bpm, she asymptomatic. Would expect HR to improve with treatment of anemia Continue diltiazem 360mg daily Eliquis on hold because of GI bleeding. Outpatient consultation for [facility]AAO. If need be, can add digoxin for rate control or cardioselective beta kenzie which is generally considered safe in the setting of COPD (4) Aortic valve stenosis: Qualifiers: Cardiac valve disease etiology: nonrheumatic Qualified Code(s): I35.0 - Nonrheumatic aortic (valve) stenosis Code(s): I35.0 - Nonrheumatic aortic (valve) stenosis Status: Acute Assessment and Plan: Moderate by echo in July 2024. History of Present Illness History of Present Illness Consult date/time: 09/10/24 08:44 Requesting physician: Leon Jama MD Consult reason: congestive heart failure Reason For Visit: gi bleed,anemia,copd exacerbation,chf,afib with rv Narrative: Maria Dolores Henry is an 78 year old female with CAD s/p PCI to the RCA in 2020, persistent atrial fibrillation, moderate aortic stenosis, and HFpEF. She presented to the hospital with a chief complaint of shortness of breath. Cardiology is consulted for CHF. She is being treated for COPD exacerbation and was also found to be significantly anemic and is being transfused. She does report darker stools for the past few weeks and reports a history of GI bleeding. Today she is reporting that her breathing has improved some and she was able to sleep last night so is feeling better. Plan for thoracentesis later today. She does not have any chest pain, palpitations, swelling. Review of Systems Review of Systems: All systems reviewed & are unremarkable except as noted in HPI and below PMFSH Past Medical History Medical History Minimal cognitive impairment Diarrhea Abdominal bloating Trochanteric fracture Chronic anticoagulation Chronic kidney disease, stage 3 Hyperlipidemia Hypertension Paroxysmal atrial fibrillation Compression fracture of body of thoracic vertebra Anxiety Surgical History Surgical History History of back surgery History of partial colectomy History of cardiac catheterization History of coronary artery stent placement History of hysterectomy History of cholecystectomy History of appendectomy History of tonsillectomy Family History Family History Father Patient's father is Family history of emphysema Mother Patient's mother is Family history of chronic obstructive pulmonary disease Other Heart disease Heart failure Social History Social History Smoking packs per day: 1.5 Smoking cigarettes per day: 30.0 Years smoked: 55 Smoking pack-years: 82.50 Smoking status: Former smoker Tobacco type: cigarettes Second hand tobacco smoke exposure: No Smoking end date: 01/09/23 Alcohol intake: never Drinks per week: 0 Substance use: never Substance use type: does not use Do You Feel Safe in your Home?: Yes Lack of Transportation: No Lack of Food: Never True Current Housing: I Have Housing Concerned About Future Housing: No Difficulty Paying Gas/Electric Bills: No Difficulty Paying for Meds: No Currently Unemployed: No Education: Decline to Answer Difficulty w/ Childcare or Family Care: No Living arrangements: assisted living Additional living arrangements comments: currently living at [facility] in [place] Occupation/Education: retired Spiritual care concerns: No Meds Home Medications and Allergies Home Medications ?Medication ?Instructions ?Recorded ?Confirmed ?Type apixaban 5 mg tablet (Eliquis) 5 mg PO BID 08/07/20 09/09/24 History clopidogrel 75 mg tablet 75 mg PO DAILY 02/03/23 09/09/24 History diltiazem HCl 240 mg 360 mg PO DAILY 10/05/23 09/09/24 History capsule,extended release 24 hr sertraline 100 mg tablet 200 mg (2 x 100 mg) PO DAILY #180 11/14/23 09/09/24 Rx tabs albuterol sulfate 90 mcg/actuation 2 puff inhalation Q4H PRN 12/01/23 09/09/24 History aerosol inhaler Shortness Of Breath Or Wheezing atorvastatin 10 mg tablet 10 mg PO HS 03/12/24 09/09/24 History colestipol 1 gram tablet 2 g PO DAILY 03/12/24 09/09/24 History ipratropium 0.5 mg-albuterol 3 mg 3 ml inhalation Q4H PRN shortness 06/29/24 09/09/24 Rx (2.5 mg base)/3 mL nebulization of breath or wheezing #180 mL soln alprazolam 1 mg tablet (Xanax) 1 mg PO QHS #90 tabs 08/24/24 09/09/24 Rx furosemide 40 mg tablet 20 mg PO DAILY 09/09/24 09/09/24 History hydrocodone 5 mg-acetaminophen 325 1 tablet PO Q6H PRN pain 09/09/24 09/09/24 History mg tablet Allergies Allergy/AdvReac Type Severity Reaction Status Date / Time steroids AdvReac Mild Confusion Uncoded 09/09/24 12:49 Vital Signs Vital Signs - 24 hr 09/09/24 12:27 09/09/24 12:34 09/09/24 13:19 Temperature 36.6 C Pulse Rate 109 H 114 H 104 H Respiratory Rate 24 H 17 Blood Pressure 132/56 L Pulse Oximetry 94 100 Oxygen Delivery Non-Rebreather Mask BiPAP Oxygen Flow Rate 15 Fraction of Inspired Oxygen 09/09/24 13:29 09/09/24 13:52 09/09/24 13:53 Temperature Pulse Rate 103 H 114 H Respiratory Rate 25 H 21 H Blood Pressure 127/65 Pulse Oximetry 94 94 Oxygen Delivery CPAP Oxygen Flow Rate Fraction of Inspired Oxygen 09/09/24 15:37 09/09/24 15:53 09/09/24 16:23 Temperature 36.3 C L 37.1 C Pulse Rate 117 H 114 H 119 H Respiratory Rate 28 H 22 H 31 H Blood Pressure 113/83 133/62 Pulse Oximetry 92 96 93 Oxygen Delivery BiPAP Oxygen Flow Rate Fraction of Inspired Oxygen 09/09/24 16:47 09/09/24 16:53 09/09/24 17:30 Temperature 36.6 C Pulse Rate 109 H 105 H 110 H Respiratory Rate 26 H 23 H 29 H Blood Pressure 119/89 119/89 132/74 Pulse Oximetry 99 93 91 Oxygen Delivery Oxygen Flow Rate Fraction of Inspired Oxygen 09/09/24 18:30 09/09/24 18:34 09/09/24 20:00 Temperature 36.7 C Pulse Rate 104 H 109 H 107 H Respiratory Rate 30 H 30 H 26 H Blood Pressure 146/60 H Pulse Oximetry 94 99 97 Oxygen Delivery BiPAP BiPAP Oxygen Flow Rate Fraction of Inspired Oxygen 35 09/09/24 20:00 09/09/24 20:00 09/09/24 20:04 Temperature 36.5 C Pulse Rate 107 H 103 H 104 H Respiratory Rate 28 H 29 H Blood Pressure 122/71 Pulse Oximetry 97 95 Oxygen Delivery BiPAP Oxygen Flow Rate Fraction of Inspired Oxygen 35 09/09/24 20:04 09/09/24 20:04 09/09/24 20:15 Temperature Pulse Rate 104 H 104 H 111 H Respiratory Rate 29 H 29 H 28 H Blood Pressure Pulse Oximetry 95 Oxygen Delivery BiPAP Oxygen Flow Rate Fraction of Inspired Oxygen 09/09/24 23:00 09/09/24 23:00 09/09/24 23:57 Temperature Pulse Rate 103 H 99 Respiratory Rate 22 H Blood Pressure Pulse Oximetry 94 95 Oxygen Delivery Nasal Cannula High Flow Therapy with Na Oxygen Flow Rate 8 Fraction of Inspired Oxygen 09/09/24 23:58 09/09/24 23:58 09/10/24 01:59 Temperature 36.8 C Pulse Rate 99 99 99 Respiratory Rate 22 H Blood Pressure 127/64 Pulse Oximetry 95 95 Oxygen Delivery High Flow Nasal Cannula Oxygen Flow Rate Fraction of Inspired Oxygen 09/10/24 01:59 09/10/24 01:59 09/10/24 02:15 Temperature Pulse Rate 99 99 97 Respiratory Rate 20 20 20 Blood Pressure Pulse Oximetry 95 Oxygen Delivery High Flow Nasal Cannula Oxygen Flow Rate 8 Fraction of Inspired Oxygen 09/10/24 03:00 09/10/24 03:47 09/10/24 03:49 Temperature Pulse Rate 96 96 96 Respiratory Rate 22 H Blood Pressure Pulse Oximetry 95 Oxygen Delivery High Flow Therapy with Na Oxygen Flow Rate 8 Fraction of Inspired Oxygen 09/10/24 05:00 09/10/24 06:21 09/10/24 06:40 Temperature 36.6 C 36.8 C Pulse Rate 100 108 H 103 H Respiratory Rate 20 20 Blood Pressure 132/48 L 132/61 Pulse Oximetry 95 96 Oxygen Delivery Oxygen Flow Rate Fraction of Inspired Oxygen 09/10/24 06:55 09/10/24 07:47 09/10/24 07:49 Temperature 36.6 C 36.8 C Pulse Rate 103 H 117 H Respiratory Rate 20 18 Blood Pressure 132/58 L 129/76 Pulse Oximetry 95 95 93 Oxygen Delivery High Flow Nasal Cannula Oxygen Flow Rate 8 Fraction of Inspired Oxygen 09/10/24 07:49 09/10/24 07:53 09/10/24 08:01 Temperature 36.8 C Pulse Rate 111 H 117 H 113 H Respiratory Rate 20 18 20 Blood Pressure 129/76 Pulse Oximetry 95 Oxygen Delivery Oxygen Flow Rate Fraction of Inspired Oxygen Exam Const: General: comfortable, no acute distress, alert and awake Orientation/consciousness: patient oriented x3 HENMT: Head: normal to inspection Eyes: General: appearance normal, both eyes and all related structures Pupils: Equal, round and reactive pupils present Neck: Neck: normal visual inspection, supple and no JVD Carotids: normal carotid upstroke Resp: Effort & Inspection: normal respiratory effort Auscultation: rales and wheezes Cardio: Rate: tachycardic Rhythm: abnormal rhythm irregularly irregular Heart sounds: S1 normal heart sound present, S2 normal heart sound present and Murmur heart sound present systolic GI: Auscultation: normal bowel sounds Skin: General skin exam: normal color Neuro: General: patient oriented x3 Cranial nerves: Yes Equal, round and reactive pupils present Extrem: General: normal to inspection Psych: Appearance: grossly normal Mental Status: mental status grossly normal Results Labs and Meds 09/10/24 05:37 09/10/24 05:37 Lab results: Cardiac Enzymes 09/09/24 09/09/24 09/09/24 Range/Units 12:50 15:42 19:06 AST 21 (14-36) U/L Troponin I < 0.012 < 0.012 < 0.012 (0.000-0.034) ng/mL 09/10/24 Range/Units 05:37 AST 16 (14-36) U/L Troponin I (0.000-0.034) ng/mL Coagulation 09/09/24 Range/Units 12:50 PT 17.2 H (11.1-14.7) Seconds APTT 32.6 (22.3-36.8) Seconds CBC 09/09/24 09/09/24 09/10/24 Range/Units 12:50 18:50 05:37 WBC 10.8 H 7.1 (4.5-10.0) K/mm3 RBC 2.50 L 2.64 L (4.2-5.4) M/mm3 Hgb 6.7 L* 7.8 L 6.9 L* (12.0-15.0) g/dL Hct 23.3 L 28.3 L 23.9 L (37.0-47.0) % Plt Count 202 169 (150-375) k/mm3 Lymph # (Auto) 1.20 (0.9-3.2) K/mm3 [place] # (Auto) 1.0 H (0.1-0.6) K/mm3 Eos # (Auto) 0.1 (0-0.3) K/mm3 Baso # (Auto) 0.0 (0.0-0.1) K/mm3 Comprehensive Metabolic Panel 09/09/24 09/10/24 Range/Units 12:50 05:37 Sodium 142 139 (137-145) mmol/L Potassium 3.3 L 3.4 (3.4-5.0) mmol/L Chloride 105 105 (98-107) mmol/L Carbon Dioxide 28 26 (22-30) mmol/L BUN 17 11 D (7-17) mg/dL Creatinine 0.84 0.71 (0.7-1.0) mg/dL Glucose 143 H 125 H (65-110) mg/dL Calcium 9.2 8.6 (8.4-10.2) mg/dL AST 21 16 (14-36) U/L ALT 13 10 (6-35) U/L Alkaline Phosphatase 80 72 (38-126) U/L Total Protein 7.0 7.0 (6.3-8.2) g/dL Albumin 4.1 3.7 (3.5-5.1) g/dL Intake and Output 09/09/24 09/10/24 09/10/24 23:59 07:59 15:59 Intake Total 550 247.5 Output Total 400 Balance 550 -152.5 Intake: IV 200 7.5 Sodium Chloride 0.9% IV 250 ml 7.5 @ 0 mls/hr .ROUTE .STK-MED [facility] Rx#:[id number] Doxycycline 100 mg/Ns 100 ml 100 100 mg In 100 ml @ 100 mls/hr IVPB Q12HR [facility] Rx#:[id number] cefTRIAXone 2 GM/NS 100 ML 2 gm 100 In 100 ml @ 200 mls/hr IVPB Q24H [facility] Rx#:[id number] Intake (Blood Product) Amt 350 0 Leuko Reduced Rbc Bag 2 Unit 350 [id number] Leukocyte Reduced Rbc Unit 0 [id number] Oral 240 Output: Urine 400 Patient Weight 09/10/24 23:59 Weight 74.2 kg
[2024-09-10] MEDS: DOXYCYCLINE 100 MG/NS 100 ML 100 MG/100 ML BAG IVPB ×2 (10:06→21:19)
[2024-09-10 10:50] LABS: Hemoglobin 8.8 g/dL (12.0-15.0); Mean Corpuscular HGB Conc 30.3 g/dl (32-36); Mean Platelet Volume 8.6 fl (7.4-10.4); Platelet Count Result 179 k/mm3 (150-375); Red Blood Count 3.26 M/mm3 (4.2-5.4); Red Cell Distribution Width 16.9 % (11.5-14.5); White Blood Count 8.2 K/mm3 (4.5-10.0)
[2024-09-10 11:01] LABS: Lactate Dehydrogenase 181 U/L (120-246)
[2024-09-10 11:21] LABS: Procalcitonin 0.1 ng/mL
[2024-09-10] MEDS: HYDROcodone/acetaminophen (*CRX) 5-325 MG TABLET 1 TAB PO (12:18)
--- NOTE | 2024-09-10 14:54 | P.CONPL_ITS ---
Assessment and Plan Assessment and plan (1) COPD exacerbation: Code(s): J44.1 - Chronic obstructive pulmonary disease with (acute) exacerbation Status: Acute Assessment and Plan: Gold grade 2 group E COPD Patient with 82.5 pack year tobacco use, quit 10/06/2022.? Alpha 1 anti trypsin genotype MM.? 07/17/2021: FEV1 is 1.25 L, 62% predicted, FEV1: FVC ratio 59%, no hyperinflation, DLCO moderately decreased at 40% and remains moderately decreased when adjusted for alveolar volume.? CT scan of the chest on 07/20/2022 shows stable pulmonary nodules with moderate apical predominant centrilobular emphysema.? She has used oxygen with exertion for about 2 years and 01/2023 admission she has been on oxygen around the clock.? Currently using 4 L nasal cannula At rest, 4-5 L with activity and 6 L at night. 01/26/23 - echo: EF 65- 70%, mildly increased LV wall thickness, LV diastolic function indeterminate, mild aortic valve stenosis area 1.7, mild-mod aortic and tricuspid valve regurgitation, mild pulm HTN with RVSP 44mmHg. echo 03/22/2023 with moderate aortic stenosis with a valve area of 1.5. Echocardiogram 03/15/2024 with moderate aortic stenosis with a valve area of 1.1, moderate aortic regurgitation. RVSP 50, positive right to left bubble. currently with 2 days worsening cough, wheezing, change in phlegm production. Plan: I will treat her for COPD exacerbation. Patient has been placed on Solu- Medrol, day 2. I will continue prednisone 40 mg p.o. q.day. Patient with AFib and will discontinue beta agonists and continue ipratropium nebulizers q.6 hours. Continue ceftriaxone and doxycycline, both day 2. Goal saturation 90 to 94%. Adjust oxygen accordingly. Will follow with you. (2) Acute on chronic hypoxic respiratory failure: Code(s): J96.21 - Acute and chronic respiratory failure with hypoxia Status: Acute Assessment and Plan: Patient with a history of COPD, bilateral pleural effusion with compressive atelectasis, fluid overload, positive bubble study with [id number] shunt after 4-5 beats without Valsalva and after 2 beats with Valsalva with bubbles appearing to come from the pulmonary vein rather than through the atrial septum. Anemia with guaiac-positive stools 6/2/25: Plan: Will treat for COPD exacerbation as above. agree with as aggressive diuresis as tolerated by her cardiac and renal systems per Cardiology and hospitalist teams. Currently on Lasix 40 mg IV q.day. diltiazem 360 q.day to control rate. Agree with thoracentesis with full set of chemistries, cell count, microbiology studies, and cytology. Of note, She had a right thoracentesis on 03/19 with removal of 300 mL of kenneth fluid (transudative, noninfected, macrophage predominant, cytology negative effusion). patient with anemia, guaiac-positive stools on Eliquis and Plavix. Continue Protonix. Patient has declined EGD. GI following. (3) NESTOR (mycobacterium avium-intracellulare): Code(s): A31.0 - Pulmonary mycobacterial infection Status: Acute Assessment and Plan: 03/12/2024 through 03/22/2024: Patient admitted to [facility] with COPD exacerbation, fluid overload and pneumonia. A sputum on 03/18/24 positive for acid-fast bacilli. I called the lab to request sensitivities once this is identified. QuantiFERON GOLD was negative. 03/12/2024: CT angiogram of the chest with no pulmonary embolism mediastinal lymphadenopathy, nodule right middle lobe 7 mm nodule right apical area 1 cm, large bilateral pleural effusions. Increased interstitial thickening in the apical areas right greater than left, no bronchiectasis recommend follow-up in 6 months. ? 04/06/2024:? Patient had 2 days of cough, fatigue, lethargy, SOB, cough with yellow to green phlegm and I treated with levofloxacin 750 q.day x7 days. 04/30/2024: Sputum from 03/18/2024 has grown out NESTOR.? Sensitivities obtained 08/06/2024. 04/30/2024: Sputum from 03/18/2024 has grown out mycobacterium avium intracellulare. ?08/06/24: Sensitivities AMIKACIN:? 16 S mcg/mL ? AMIKACIN (LIPOSOMAL, INHALED):? 16 S mcg/mL ? CIPROFLOXACIN:? >8 mcg/mL ? CLARITHROMYCIN: ?2 S mcg/mL ? CLOFAZIMINE:? 0.25 mcg/mL??? DOXYCYCLINE:? >8 mcg/mL ? LINEZOLID:? 32 R mcg/mL ? MINOCYCLINE:? >8 mcg/mL??? MOXIFLOXACIN:? 4 R mcg/mL ? RIFAMPIN:? >4 mcg/mL ? RIFABUTIN:? 0.5 mcg/mL ? STREPTOMYCIN:? >32 This is a corrected result. ? A prior result that was reported as final has been changed. ? 1. Mycobacterium avium-intracellu ? M.I.C.??? RX?--------- --- ?Rifampin AFB? >4?S ?Amikacin AFB? 16?S ?Moxifloxacin AFB? R? 06/11/2024:? I called our lab to check on the drug sensitivities to NESTOR, and despite me calling on 03/18/24 to get sensitivities these were not started at [facility] until we called back on 06/11/2024.? Additional sputum for AFB on 03/19/2024, 06/10/2024 and 06/11/2024 are smear negative and culture negative at 6 weeks. 08/20/24: Patient has no fever, chills, rigors, chronic phlegm production. She has 1 sputum with NESTOR and 3 negative sputums. Plan: I will order 3 additional sputums for AFB. I will order CT scan of the chest. Sputum for AFB from 08/28/2024, 08/29/2024 and 08/30/2024 smear negative and cultures negative to date. CT scan ordered. CT chest on 09/06/24: Compared with 03/12/2024 bilateral pleural effusions are much less and now very small right and minimal left. Improved bilateral mild interstitial infiltrates without bronchiectasis. Improved right middle lobe nodule. Will follow the patient clinically. 09/10/24: Plan: I will attempt to obtain 3 additional AFB sputums in order to check for 2nd specimen that would have NESTOR and if so she would either be colonized or infected. If she grows out a 2nd specimen with NESTOR will refer to [facility] ID clinic. History of Present Illness History of Present Illness Consult date: 09/10/24 Chief complaint: gi bleed,anemia,copd exacerbation,chf,afib with rv Narrative: 09/10/2024: This is a new pulmonary consult for COPD. 78-year-old with a history of gold grade 2 group B COPD, hypoxemic respiratory failure on 4 L at rest and 8 L with activity and 8 L at night, NESTOR in 1 sputum (3 additional negative sputums), and congestive heart failure, atrial fibrillation, right transudative pleural effusion. patient is followed in the Pulmonary Clinic in last seen on 08/20/2024. this is a copy of the note She has no hospitalizations since 03/22/2024. She was treated by her PCP with Levaquin in July and took this for 7 days and this helped clear her congestion. Currently the patient is telling me she is having a good day. She has no rest short of breath. Her cough and phlegm production are at her baseline. Patient is currently taking Stiolto Respimat at 1 puff twice a day, she increased weight from 160-165 and she increased her Lasix from 40 p.o. b.i.d. to t.i.d., she takes rescue albuterol 1 time a week. The patient is wearing 6-8 L when she sits and her saturations are 91-95%. She is using 8 L at night. She is using 8 L when she walks with physical therapy in her apartment and her saturations go down to 81-85%. Currently the patient was on 6 L with saturations 94%. When the patient stood up for 2 minutes her saturations were 93%. I walked her to the door and back which is what she says she walks at home and her saturations remain 90. she has atrial fibrillation and her pulse oximeter sometimes has difficulty picking up accurate information. She is asymptomatic with these low saturations with activity. The patient denies any fever, chills, rigors or weight loss. Her weight today is 160. She is not smoking or exposed to secondhand smoke. Her CAT score today is 31. Plan: regarding her COPD I continued Stiolto Respimat, rescue albuterol ordered a home O2 assessment, CT scan of the chest. regarding her hypoxemia I ordered a home O2 assessment and she required 4 L at rest and 8 L with activity. Regarding her NESTOR she had 1 positive sputum on 03/18 with negative sputum on 03/19, 3 2 and 3 3. I ordered 3 additional sputums and all are smear negative cultures are pending CT scan of the chest on 09/06/2024 showed improved bilateral pleural effusions, immune improved interstitial infiltrates and improved right middle lobe nodule since 03/12/2024. 09/09/2024 patient presented to the emergency room with 1-2 days history worsening shortness of breath, wheezing, cough, change in phlegm from clear to brown with no fever. She had worsening dyspnea on exertion with no swelling. White blood cell count was 10.8, her creatinine is 0.84, her BNP was 2600, her troponins were negative x3. Her chest x-ray showed congestion with right greater than left pleural effusion. Patient was initially treated with Solu- Medrol, bronchodilators, ceftriaxone, doxycycline, Lasix IV and BiPAP. She refused blood gas. Her hemoglobin was 6.7 and she received 2 units of packed red blood cells. 09/10/2024: Today the patient tells me that she is breathing normally when she talks, she has increased phlegm production which remains brown, her wheezing is better. She is currently on 8 L nasal cannula saturations 92%. Her white blood cell count is 7.1, creatinine is 0.71, her BNP is 1880. She is cumulative positive 397 since admission. Her weight today is 74.2 with an admission weight of 75.4. She has declined EGD. DATA 09/06/24: CT Scan of the Chest without Contrast: Clinical Indication: COPD Technique: Contiguous sections were acquired throughout the chest without intravenous contrast. Dose reduction technique was used on this scan by utilizing automated exposure control and iterative reconstruction technique. The dose-length product (DLP) was 169.98 mGy-cm. COMPARISON: 04-03 Findings: There is no evidence of any significant mediastinal, hilar or axillary lymphadenopathy. There are extensive atherosclerotic calcifications of the aorta and coronary arteries. No pericardial effusion. Small bilateral pleural effusions are present. There is diffuse interstitial edema. Images through the upper abdomen reveal no abnormalities. Right-sided breast implant versus ovoid mass is stable from prior exam. Stable T8 compression fracture. Impression: Small bilateral pleural effusions with interstitial pulmonary edema. Stable right breast implant versus less likely mass. Correlate with prior history. Stable T8 compression fracture. Compared with 03/12/2024 bilateral pleural effusions are much less and now very small right and minimal left. Improved bilateral mild interstitial infiltrates without bronchiectasis. Improved right middle lobe nodule. Will follow the patient clinically. 09/05/24: Home O2 assessment: Rest room air saturation 77%. Rest nasal cannula 2 L saturation 85%. Rest nasal cannula 4 L saturation 90%. Exercise 4 L nasal cannula saturation 85%. Exercise nasal cannula 6 L saturation 87%. Exercise 7 L nasal cannula saturation 88%. Exercise 8 L nasal cannula saturation 90%. Patient requires 4 L at rest and 8 with activity. Sputum for AFB from 08/28/2024, 08/29/2024 and 08/30/2024 is pending. 06/11/2024: Sputum AFB smear negative, culture negative at 6 weeks 06/10/2024:? Sputum AFB smear negative, culture negative at 6 weeks 04/30/2024: Sputum from 03/18/2024 has grown out mycobacterium avium intracellulare. ?08/06/24: Sensitivities AMIKACIN:? 16 S mcg/mL ? AMIKACIN (LIPOSOMAL, INHALED):? 16 S mcg/mL ? CIPROFLOXACIN:? >8 mcg/mL ? CLARITHROMYCIN: ?2 S mcg/mL ? CLOFAZIMINE:? 0.25 mcg/mL??? DOXYCYCLINE:? >8 mcg/mL ? LINEZOLID:? 32 R mcg/mL ? MINOCYCLINE:? >8 mcg/mL??? MOXIFLOXACIN:? 4 R mcg/mL ? RIFAMPIN:? >4 mcg/mL ? RIFABUTIN:? 0.5 mcg/mL ? STREPTOMYCIN:? >32 This is a corrected result. ? A prior result that was reported as final has been changed. ? 1. Mycobacterium avium-intracellu ? M.I.C.??? RX?--------- --- ?Rifampin AFB? >4?S ?Amikacin AFB? 16?S ?Moxifloxacin AFB? R? 03/19/2024: Sputum smear negative for AFB and culture negative at 6 weeks. 03/19/24: Pleural fluid: 300 mL of kenneth fluid removed. G stain was many white blood cells, no organisms seen. PH greater than 7.50, white blood cell count 2109 with a differential neutrophils 17%, lymphocytes 32%, macrophages 38%, mesothelial cells 13%. she says her breathing immediately improved with the thoracentesis. Pleural LDH 184/ serum LDH 363= 0.51 . pleural total protein 3.0/ serum total protein 7.0 equals 0.43. serum albumin 4.1, pleural albumin 2.0, gradient 2.1. Pleural glucose 110, pleural cholesterol 33. Pleural cytology negative for malignancy. anaerobic culture negative. Fungal stain and culture negative. AFB smear and culture negative. This pleural effusion is a transudative, noninfected, macrophage predominant, cytology negative effusion., 11/04/2023: Polysomnogram Periodic Limb Movements The patient had 87 isolated limb movements with an index of 14.1. The patient had 215 periodic limb movements with an index of 34.9, which is elevated (normal <15). Patient had a total of 302 limb movements with a total limb movement index of 49.0. Assessment and plan: (1) Nocturnal hypoxemia: The patient had an overall AHI of 2.1 with desaturation down to 77%. This is not consistent with sleep-disordered breathing. The patient had persistent hypoxemia in the absence of respiratory events. Supplemental oxygen was started at 1 lpm of O2 and titrated to 3.5 lpm of O2. The patient oxygen saturation was unable to remain above 90% on the final oxygen settings. I recommend that the patient use 4 lpm of supplemental oxygen with sleep. I recommend that she have a nocturnal oximetry done 2 weeks after implementing the recommended oxygen settings to ensure that her oxygen saturation remains above 90%. (2) PLMD (periodic limb movement disorder): The patient had a significant number of limb movements during the study with the majority being periodic in nature. Approximately 25% of the periodic limb movements caused arousals during sleep. The patient's sleep history does not suggest Restless Leg Syndrome. I recommend that the patient have a serum ferritin drawn for evaluation of iron deficiency anemia. If the patient has a serum ferritin less than 75 ng/mL, I recommend starting a daily iron supplement and a Vitamin C supplement for better absorption. If the serum ferritin is greater than 75 ng/mL, I recommend starting a dopamine agonist and titrating the dose until symptoms resolve. There are nonpharmacological methods to treat limb movements including daily exercise, stretching calf muscles before bed, avoiding excessive amounts of caffeine and alcohol, vitamin B supplementation, magnesium lotion massaged into legs before bed, and use of a weighted blanket. I will order ferritin blood test. 10/25/2023: Overnight oximetry on 6 L nasal cannula. The family was present for this test and confirmed the patient was on 6 L, and that she wore the 6 L all night. Recording duration 9 hours and 57 minutes. Basal saturation 94.6%. High saturation 99%. Low saturation 82%. Time with saturation less than or equal to 88% was 2 minutes and 26 seconds. Oxygen desaturation index was 7. I will continue 6 L nasal cannula at night. 07/06/2023 (results received from [facility] [place] on 08/25/23):? Overnight oximetry on 5 L nasal cannula.? Recording duration 9 hours and 35 minutes.? Basal saturation 86.6%.? High saturation 98%.? Low saturation 65%.? Time with saturation less than or equal to 88% was 4 hours and 28 minutes.? Oxygen desaturation index is 20. unsure if patient was wearing oxygen and at what level, repeat ordered on 5 L 05/13/2023: Home O2 assessment:? Rest room air saturation 86%.? Rest nasal cannula 1 L saturation 88%.? Rest nasal cannula 2 L saturation 90%.? Exercise nasal cannula 2 L saturation 88%.? Exercise nasal cannula 3 L saturation 90%. ?Requires 2 L with rest and 3 with activity 03/12/30 EXAMINATION: XR chest 1V portable ??INDICATION: Pleural effusions. ??COMPARISON: Chest single view 04/08/2023, chest CT 03/30/2023 ??FINDINGS: There is a diffuse interstitial pattern in the lungs. There are airspace opacities in right mid and lower lung zones and left lower lung zone. There are small pleural effusions. No pneumothorax. Cardiomegaly is noted. ??IMPRESSION: ??1. Stable diffuse lung disease, consistent with pulmonary edema versus pneumonia. ??2. Stable small pleural effusions. ??3. Cardiomegaly. ?03/23/23: EXAMINATION: CTA chest PE protocol ??DATE: 03/23/2023 14:04 ??INDICATION: SOB ??COMPARISON: 07/20/2022 ??FINDINGS: The pulmonary arteries are well-opacified. No pulmonary embolism is identified. There are moderate-sized right and small left pleural effusions. There is complete left upper lobe collapse due to mucous plugging. There is also complete atelectasis of the right middle lobe. There is intralobular septal thickening with groundglass opacity with a right lung predominance. There is dependent atelectasis of the left lower lobe. There is a right breast implant. There is mild bilateral hilar and mediastinal lymphadenopathy, likely reactive. No pneumothorax is identified. Punctate calcifications in an otherwise normal spleen likely represent healed granulomatous disease. Changes of cholecystectomy are noted. There is moderate thoracic spondylosis. A chronic T8 compression fracture is noted. ??IMPRESSION: ??1. No pulmonary embolus. ??2. Left upper lobe collapse related to mucous plugging ??3. Complete atelectasis of the right middle lobe. ??4. Moderate size right and small left pleural effusions. ??5. Findings consistent with asymmetric edema of the right upper lobe. ?03/30/[address] Mild pulmonary edema. ??2. Mild atelectasis in the lungs with interval improvement. ??3. Moderate emphysema. ??4. Small pleural effusions. ?03/22/23 Echo Summary ??? 1. Complete two-dimensional, color flow and Doppler transthoracic ??echocardiogram is performed. ??? 2. Severe pulmonary artery enlargement. ??? 3. Left ventricular chamber dimension is normal. ??? 4. Left ventricular systolic function is normal, estimated at 60-65%. ??? 5. There is mildly increased left ventricular wall thickness. ??? 6. The left ventricular diastolic function is grade II diastolic ??dysfunction. ??? 7. The basal inferior wall is akinetic. ??? 8. Left atrial chamber dimension is moderately enlarged. ??? 9. Right atrial chamber dimension is mildly enlarged. ??? 10. Right ventricular chamber dimension is mildly enlarged. ??? 11. There is moderate aortic valve stenosis with a peak velocity of 224 ??cm/s, mean gradient of 11 mmHg, and aortic valve area of 1.5 cm2. ??? 12. There is moderate aortic valve regurgitation. ??? 13. There is moderate aortic valve calcification. ?? 14. The mitral valve annulus is mildly calcified. ??? 15. There is moderate mitral valve regurgitation. ??? 16. There is mild tricuspid valve regurgitation. ??? 17. Mild pulmonary hypertension, estimated pulmonary arterial systolic ??pressure is 43 mmHg. ??? 18. There is mild pulmonic regurgitation. ??Right Ventricle ??? Right ventricular chamber dimension is mildly enlarged. ??? Right ventricular systolic function is normal. ??Right Atria ??? Right atrial chamber dimension is mildly enlarged. ?? * 03/17/23 CXR compared to 01/24 CXR with intervall progression of bilateral airspace disease which may represent edema and/or pneumonia. ??document embedded image ??* 01/26/23 - echo: EF 65-70%, mildly increased LV wall thickness, LV diastolic function indeterminate, mild aortic valve stenosis, mild-mod aortic and tricuspid valve regurgitation, mild pulmHTN RVSP 44mmHg. ??* 07/20/[address] - Stable pulmonary nodules, likely benign. Moderate emphysema. ??Moderate obstructive airway disease by PFT in July of 2021, severely lung diffusion capacity. ??* 12/16/21 Home O2 Eval - need for 2L O2 with activity, none at rest. ??* 01/26/22: Overnight oximetry - 324 min spent below 88% saturation. ? ?07/17/2021 PFTs ?The test was performed and results interpreted in accordance with the 2019 and 2005 ATS/ERS Task Force guidelines respectively using the Global Lung Function Initiative-2012 reference equations. Patient demonstrated good effort and cooperation. Reproducibility criteria were met. The quality of the spirometry maneuver was Grade A.? Of note the patient had persistent coughing throughout the test. ?Findings: ?Spirometry:? There is decreased maximal expiratory airflow at all lung volumes with a concave expiratory flow tracing.? The contour the inspiratory flow tracing is normal.? The FVC is 2.13 L, 81% predicted.? The FEV1 is 1.25 L, 62% predicted.? The FEV1:? FVC ratio is 59%. ?Plethysmography:? The total lung capacity is 5.70 L, 112% predicted.? The functional residual capacity is 4.32 L, 148% predicted.? The residual volume is 3.04 L, 130% predicted.? ?Diffusing capacity:? The diffusing capacity unadjusted for hemoglobin and carboxyhemoglobin is 8.0, 40% predicted.? The diffusing capacity adjusted for alveolar volume is 2.26, 54% predicted. ?Impression: There is a moderate obstructive abnormality. Hyperinflation is present is demonstrated by the increase in functional residual capacity and is consistent with an obstructive abnormality. The diffusing capacity unadjusted for hemoglobin is moderately decreased and normalizes when adjusted for alveolar volume. ?There are no prior studies for comparison ? ??* 05/25/22 : Overnight oximetry on 2.5L O2 - 13min spent below 88% but looks likely artifact. She continued 2.5L. ??* 07/26/20 - Chest CT:? mild to moderate emphysema. 6 mm right middle lobe nodule along a band of linear discoid atelectasis/scarring. ??* Alpha 1 MM normal.Alpha 1 PIMM normal Review of Systems 2 Constitutional: Constitutional: Reports no additional constitutional complaints Eyes: Eyes: Reports no additional eye complaints ENT: Reports system reviewed and no additional complaints, except as documented Cardiovascular: Cardiovascular: Reports no additional cardiovascular complaints Respiratory: Respiratory: Reports no additional respiratory complaints Gastrointestinal: Gastrointestinal: Reports no additional gastrointestinal complaints Musculoskeletal: Musculoskeletal: Reports no additional musculoskeletal complaints Neurologic: Reports system reviewed and no additional complaints, except as documented Psychiatric: Psychiatric: Reports no additional psychiatric complaints Endocrine: Endocrine: Reports no additional endocrine complaints Hematologic/Lymphatic: Hematologic/Lymphatic: Reports no additional hematologic/lymphatic complaints Allergic/Immunologic: Allergic/Immunologic: Reports no additional allergic/immunologic complaints PMFSH Past Medical History Medical History Minimal cognitive impairment Diarrhea Abdominal bloating Trochanteric fracture Chronic anticoagulation Chronic kidney disease, stage 3 Hyperlipidemia Hypertension Paroxysmal atrial fibrillation Compression fracture of body of thoracic vertebra Anxiety Surgical History Surgical History History of back surgery History of partial colectomy History of cardiac catheterization History of coronary artery stent placement History of hysterectomy History of cholecystectomy History of appendectomy History of tonsillectomy Family History Family History Father Patient's father is Family history of emphysema Mother Patient's mother is Family history of chronic obstructive pulmonary disease Other Heart disease Heart failure Social History Social History Smoking packs per day: 1.5 Smoking cigarettes per day: 30.0 Years smoked: 55 Smoking pack-years: 82.50 Smoking status: Former smoker Tobacco type: cigarettes Second hand tobacco smoke exposure: No Smoking end date: 01/09/23 Alcohol intake: never Drinks per week: 0 Substance use: never Substance use type: does not use Do You Feel Safe in your Home?: Yes Lack of Transportation: No Lack of Food: Never True Current Housing: I Have Housing Concerned About Future Housing: No Difficulty Paying Gas/Electric Bills: No Difficulty Paying for Meds: No Currently Unemployed: No Education: Decline to Answer Difficulty w/ Childcare or Family Care: No Living arrangements: assisted living Additional living arrangements comments: currently living at [facility] in [place] Occupation/Education: retired Spiritual care concerns: No Meds Home Medications and Allergies Home Medications ?Medication ?Instructions ?Recorded ?Confirmed ?Type apixaban 5 mg tablet (Eliquis) 5 mg PO BID 08/07/20 09/09/24 History clopidogrel 75 mg tablet 75 mg PO DAILY 02/03/23 09/09/24 History diltiazem HCl 240 mg 360 mg PO DAILY 10/05/23 09/09/24 History capsule,extended release 24 hr sertraline 100 mg tablet 200 mg (2 x 100 mg) PO DAILY #180 11/14/23 09/09/24 Rx tabs albuterol sulfate 90 mcg/actuation 2 puff inhalation Q4H PRN 12/01/23 09/09/24 History aerosol inhaler Shortness Of Breath Or Wheezing atorvastatin 10 mg tablet 10 mg PO HS 03/12/24 09/09/24 History colestipol 1 gram tablet 2 g PO DAILY 03/12/24 09/09/24 History ipratropium 0.5 mg-albuterol 3 mg 3 ml inhalation Q4H PRN shortness 06/29/24 09/09/24 Rx (2.5 mg base)/3 mL nebulization of breath or wheezing #180 mL soln alprazolam 1 mg tablet (Xanax) 1 mg PO QHS #90 tabs 08/24/24 09/09/24 Rx furosemide 40 mg tablet 20 mg PO DAILY 09/09/24 09/09/24 History hydrocodone 5 mg-acetaminophen 325 1 tablet PO Q6H PRN pain 09/09/24 09/09/24 History mg tablet Allergies Allergy/AdvReac Type Severity Reaction Status Date / Time steroids AdvReac Mild Confusion Uncoded 09/09/24 12:49 Vital Signs Vital Signs - 24 hr 09/09/24 15:37 09/09/24 15:53 09/09/24 16:23 Temperature 36.3 C L 37.1 C Pulse Rate 117 H 114 H 119 H Respiratory Rate 28 H 22 H 31 H Blood Pressure 113/83 133/62 Pulse Oximetry 92 96 93 Oxygen Delivery BiPAP Oxygen Flow Rate Fraction of Inspired Oxygen 09/09/24 16:47 09/09/24 16:53 09/09/24 17:30 Temperature 36.6 C Pulse Rate 109 H 105 H 110 H Respiratory Rate 26 H 23 H 29 H Blood Pressure 119/89 119/89 132/74 Pulse Oximetry 99 93 91 Oxygen Delivery Oxygen Flow Rate Fraction of Inspired Oxygen 09/09/24 18:30 09/09/24 18:34 09/09/24 20:00 Temperature 36.7 C Pulse Rate 104 H 109 H 107 H Respiratory Rate 30 H 30 H 26 H Blood Pressure 146/60 H Pulse Oximetry 94 99 97 Oxygen Delivery BiPAP BiPAP Oxygen Flow Rate Fraction of Inspired Oxygen 35 09/09/24 20:00 09/09/24 20:00 09/09/24 20:04 Temperature 36.5 C Pulse Rate 107 H 103 H 104 H Respiratory Rate 28 H 29 H Blood Pressure 122/71 Pulse Oximetry 97 95 Oxygen Delivery BiPAP Oxygen Flow Rate Fraction of Inspired Oxygen 35 09/09/24 20:04 09/09/24 20:04 09/09/24 20:15 Temperature Pulse Rate 104 H 104 H 111 H Respiratory Rate 29 H 29 H 28 H Blood Pressure Pulse Oximetry 95 Oxygen Delivery BiPAP Oxygen Flow Rate Fraction of Inspired Oxygen 09/09/24 23:00 09/09/24 23:00 09/09/24 23:57 Temperature Pulse Rate 103 H 99 Respiratory Rate 22 H Blood Pressure Pulse Oximetry 94 95 Oxygen Delivery Nasal Cannula High Flow Therapy with Na Oxygen Flow Rate 8 Fraction of Inspired Oxygen 09/09/24 23:58 09/09/24 23:58 09/10/24 01:59 Temperature 36.8 C Pulse Rate 99 99 99 Respiratory Rate 22 H Blood Pressure 127/64 Pulse Oximetry 95 95 Oxygen Delivery High Flow Nasal Cannula Oxygen Flow Rate Fraction of Inspired Oxygen 09/10/24 01:59 09/10/24 01:59 09/10/24 02:15 Temperature Pulse Rate 99 99 97 Respiratory Rate 20 20 20 Blood Pressure Pulse Oximetry 95 Oxygen Delivery High Flow Nasal Cannula Oxygen Flow Rate 8 Fraction of Inspired Oxygen 09/10/24 03:00 09/10/24 03:47 09/10/24 03:49 Temperature Pulse Rate 96 96 96 Respiratory Rate 22 H Blood Pressure Pulse Oximetry 95 Oxygen Delivery High Flow Therapy with Na Oxygen Flow Rate 8 Fraction of Inspired Oxygen 09/10/24 05:00 09/10/24 06:21 09/10/24 06:40 Temperature 36.6 C 36.8 C Pulse Rate 100 108 H 103 H Respiratory Rate 20 20 Blood Pressure 132/48 L 132/61 Pulse Oximetry 95 96 Oxygen Delivery Oxygen Flow Rate Fraction of Inspired Oxygen 09/10/24 06:55 09/10/24 07:47 09/10/24 07:49 Temperature 36.6 C 36.8 C Pulse Rate 103 H 117 H Respiratory Rate 20 18 Blood Pressure 132/58 L 129/76 Pulse Oximetry 95 95 93 Oxygen Delivery High Flow Nasal Cannula Oxygen Flow Rate 8 Fraction of Inspired Oxygen 09/10/24 07:49 09/10/24 07:53 09/10/24 07:55 Temperature 36.8 C 36.8 C Pulse Rate 111 H 117 H 117 H Respiratory Rate 20 18 18 Blood Pressure 129/76 129/76 Pulse Oximetry 95 95 Oxygen Delivery Oxygen Flow Rate Fraction of Inspired Oxygen 09/10/24 08:00 09/10/24 08:00 09/10/24 08:01 Temperature Pulse Rate 119 H 96 113 H Respiratory Rate 20 20 Blood Pressure Pulse Oximetry 99 Oxygen Delivery High Flow Therapy with Na Oxygen Flow Rate 8 Fraction of Inspired Oxygen 09/10/24 09:15 09/10/24 10:00 09/10/24 12:00 Temperature 36.8 C Pulse Rate 66 121 H 121 H Respiratory Rate 22 H Blood Pressure 139/98 H Pulse Oximetry 100 Oxygen Delivery Oxygen Flow Rate Fraction of Inspired Oxygen 09/10/24 12:00 09/10/24 14:00 09/10/24 14:46 Temperature Pulse Rate 120 H 112 H 103 H Respiratory Rate 20 20 Blood Pressure Pulse Oximetry 99 Oxygen Delivery High Flow Therapy with Na Oxygen Flow Rate 8 Fraction of Inspired Oxygen Exam 2 Const: General: cooperative, healthy appearing and comfortable O rientation/consciousness: oriented to person, oriented to place and oriented to time HENMT: Head: normal to inspection Ears: hearing grossly normal bilaterally Eyes: General: appearance normal, both eyes and all related structures Neck: Neck: normal visual inspection Chest: Chest palpation & inspection: normal inspection of the chest Resp: Effort & Inspection: normal respiratory effort and able to speak in complete sentences Auscultation: crackles, no rales, no rhonchi, no wheezes and diminished lung sounds Cardio: Jugular venous distension: no JVD GI: Inspection: normal to inspection GI Palp: No abdominal tenderness Skin: General skin exam: normal color Neuro: General: oriented to person, oriented to place and oriented to time Extrem: General: normal to inspection and edema Psych: Appearance: grossly normal Results Laboratory Findings 09/10/24 10:43 09/10/24 05:37 ABG, PT/INR, D-dimer: PT/INR, D-dimer PT 17.2 Seconds (11.1-14.7) H 09/09/24 12:50 INR 1.4 09/09/24 12:50 Abnormal lab findings: Abnormal Labs 09/09/24 09/09/24 09/09/24 12:50 13:29 18:50 WBC 10.8 H RBC 2.50 L Hgb 6.7 L* 7.8 L Hct 23.3 L 28.3 L MCHC 28.8 L RDW 15.7 H Neut % (Auto) 78.4 H Lymph % (Auto) 11.1 L [place] % (Auto) 9.0 H [place] # (Auto) 1.0 H Abs Immat Gran (auto) 0.04 H Absolute Neuts (auto) 8.4 H Absolute Nucleated RBC 0.020 H PT 17.2 H Potassium 3.3 L Glucose 143 H NT-Pro-B Natriuret Pep 2600 H Crossmatch See Detail 09/10/24 09/10/24 05:37 10:43 WBC RBC 2.64 L 3.26 L Hgb 6.9 L* 8.8 L Hct 23.9 L 29.0 L MCHC 28.9 L 30.3 L RDW 16.8 H 16.9 H Neut % (Auto) Lymph % (Auto) [place] % (Auto) [place] # (Auto) Abs Immat Gran (auto) Absolute Neuts (auto) Absolute Nucleated RBC PT Potassium Glucose 125 H NT-Pro-B Natriuret Pep 1880 H Crossmatch Diagnostic Findings Additional studies: ITS Impressions Chest X-Ray 09/09/24 12:58 IMPRESSION: 1. Worsening still mild to moderate edema and new small bilateral pleural effusions, right greater than left consistent with given history of congestive heart failure. 2. Mild cardiomegaly.
[2024-09-10] MEDS: cefTRIAXone 2 GM/NS 100 ML 2 GM/100 ML BAG IVPB (20:08)
[2024-09-10] MEDS: IPRATROPIUM BR 0.02% INH SOLN 0.5 MG/2.5 ML VIAL INHALATION (20:42)
[2024-09-10] MEDS: ALPRAZolam (*CRX) 0.5 MG TABLET 1 MG PO (21:18)
[2024-09-10] MEDS: ATORVASTATIN 10 MG TABLET PO (21:18)
[2024-09-11] VITALS (25 sets, daily range): BP systolic 118–147; BP diastolic 58–88; PULSE 87–139; RESP 16–32; TEMP 36.6–36.8; O2SAT 90–99
[2024-09-11] MEDS: IPRATROPIUM BR 0.02% INH SOLN 0.5 MG/2.5 ML VIAL INHALATION ×4 (02:32→20:49)
[2024-09-11] MEDS: ALBUTEROL SULFATE (*SP) AEROSOL 1 PUFF 2 PUFF INHALATION (04:40)
[2024-09-11] MEDS: SODIUM CHLOR 3% 15 ML NEB (RESPIRATORY THERAPY) 6 ML INHALATION (05:45)
--- NOTE | 2024-09-11 06:23 | PCRCNOTE ---
Sputum induction performed using 3% saline nebulizer. Patient was unable to produce a sample for collection. Sample cup left at bedside with patient. RN informed.
[2024-09-11 07:14] LABS: INR 1.2
[2024-09-11] MEDS: SERTRALINE HCL 50 MG TABLET 200 MG PO (09:25)
[2024-09-11] MEDS: FUROSEMIDE INJ 40 MG/4 ML VIAL IV PUSH (09:25)
[2024-09-11] MEDS: PANTOPRAZOLE SODIUM IV 40 MG VIAL IV PUSH ×2 (09:25→20:35)
[2024-09-11] MEDS: COLESTIPOL HCL 1 GM TABLET 2 GM PO (09:26)
[2024-09-11] MEDS: dilTIAZem HCL CD 180 MG CAP.24HR 360 MG PO (09:26)
[2024-09-11] MEDS: DOXYCYCLINE 100 MG/NS 100 ML 100 MG/100 ML BAG IVPB ×2 (09:26→21:07)
[2024-09-11] MEDS: predniSONE 20 MG TABLET 40 MG PO (09:26)
[2024-09-11] MEDS: POTASSIUM CHLORIDE 20 MEQ ER TABLET PO ×2 (09:26→17:44)
--- NOTE | 2024-09-11 10:01 | PM.PNCARD ---
Progress Note: A&P Assessment and Plan (1) Diastolic heart failure: Code(s): I50.30 - Unspecified diastolic (congestive) heart failure Status: Chronic Assessment and Plan: Acute on chronic diastolic heart failure. Small bilateral pleural effusions and pulmonary edema. Plan for thoracentesis today She had an echo in July of this year showing moderate and preserved EF. RV dysfunction and grade II diastolic dysfunction. Since she has had a recent echo, no need to repeat one now. Continue IV furosemide today, would shift back to p.o. tomorrow Daily weights Strict I&O Daily BMP (2) CAD (coronary artery disease): Code(s): I25.10 - Atherosclerotic heart disease of [place] coronary artery without angina pectoris Status: Acute Assessment and Plan: CAD with stenting in 2020. Lexiscan earlier this year showed infarct but no ischemia. Resume plavix 24h after thoracentesis. Continue statin. (3) Atrial fibrillation with RVR: Code(s): I48.91 - Unspecified atrial fibrillation Status: Acute Assessment and Plan: Persistent atrial fibrillation. Now has RVR in the setting of anemia, COPD, and CHF exacerbation. Heart rates generally 100-120bpm, she asymptomatic. Would expect HR to improve with treatment of anemia Continue diltiazem 360mg daily Eliquis on hold because of GI bleeding. Outpatient consultation for [facility]. If need be, can add digoxin for rate control or cardioselective beta kenzie which is generally considered safe in the setting of COPD (4) Aortic valve stenosis: Qualifiers: Cardiac valve disease etiology: nonrheumatic Qualified Code(s): I35.0 - Nonrheumatic aortic (valve) stenosis Code(s): I35.0 - Nonrheumatic aortic (valve) stenosis Status: Acute Assessment and Plan: Moderate by echo in July 2024. Plan Cardiology will follow along on an as needed basis please call with questions Subjective Date/time seen: 09/11/24 10:01 Interval history: Cardiology follow up visit Feels about the same. Still coughing a lot. No palpitations or chest pain. Review of Systems Review of Systems: All systems reviewed & are unremarkable except as noted in HPI and below Exam Const: General: comfortable, no acute distress, alert and awake Orientation/consciousness: patient oriented x3 HENMT: Head: normal to inspection Eyes: General: appearance normal, both eyes and all related structures Pupils: Equal, round and reactive pupils present Neck: Neck: normal visual inspection, supple and no JVD Carotids: normal carotid upstroke Resp: Effort & Inspection: normal respiratory effort Auscultation: wheezes Cardio: Rate: tachycardic Rhythm: abnormal rhythm irregularly irregular Heart sounds: S1 normal heart sound present, S2 normal heart sound present and Murmur heart sound present systolic GI: Auscultation: normal bowel sounds Skin: General skin exam: normal color Neuro: General: patient oriented x3 Cranial nerves: Yes Equal, round and reactive pupils present Extrem: General: normal to inspection Psych: Appearance: grossly normal Mental Status: mental status grossly normal Objective Data Vital Signs Vital Signs: Vital Signs - 24 hr 09/10/24 12:00 09/10/24 12:00 09/10/24 14:00 Temperature Pulse Rate 121 H 120 H 112 H Respiratory Rate 20 Blood Pressure Pulse Oximetry 99 Oxygen Delivery High Flow Therapy with Na Oxygen Flow Rate 8 09/10/24 14:46 09/10/24 15:00 09/10/24 16:00 Temperature Pulse Rate 103 H 99 107 H Respiratory Rate 20 20 20 Blood Pressure Pulse Oximetry 95 Oxygen Delivery High Flow Therapy with Na Oxygen Flow Rate 8 09/10/24 16:00 09/10/24 16:00 09/10/24 18:00 Temperature 36.9 C Pulse Rate 107 H 113 H 114 H Respiratory Rate 26 H Blood Pressure 150/70 H Pulse Oximetry 93 Oxygen Delivery Oxygen Flow Rate 09/10/24 18:35 09/10/24 19:31 09/10/24 19:32 Temperature Pulse Rate 108 H 108 H Respiratory Rate 24 H Blood Pressure 141/65 H Pulse Oximetry 95 Oxygen Delivery High Flow Therapy with Na Oxygen Flow Rate 8 09/10/24 20:00 09/10/24 20:42 09/10/24 20:48 Temperature 36.6 C Pulse Rate 104 H 104 H Respiratory Rate 18 26 H 22 H Blood Pressure 140/76 Pulse Oximetry 90 Oxygen Delivery Oxygen Flow Rate 09/10/24 21:01 09/10/24 22:00 09/11/24 00:00 Temperature Pulse Rate 104 H 101 H 99 Respiratory Rate 24 H Blood Pressure Pulse Oximetry 93 Oxygen Delivery High Flow Nasal Cannula Oxygen Flow Rate 8 09/11/24 00:00 09/11/24 02:00 09/11/24 02:34 Temperature 36.6 C Pulse Rate 97 100 102 H Respiratory Rate 18 16 Blood Pressure 119/74 Pulse Oximetry 95 Oxygen Delivery Oxygen Flow Rate 09/11/24 02:42 09/11/24 03:17 09/11/24 04:00 Temperature Pulse Rate 90 87 Respiratory Rate 18 Blood Pressure Pulse Oximetry 95 Oxygen Delivery High Flow Nasal Cannula Oxygen Flow Rate 8 09/11/24 04:00 09/11/24 04:40 09/11/24 05:45 Temperature 36.7 C Pulse Rate 102 H 102 H 102 H Respiratory Rate 18 18 20 Blood Pressure 134/63 Pulse Oximetry 90 Oxygen Delivery Oxygen Flow Rate 09/11/24 06:00 09/11/24 06:05 09/11/24 08:00 Temperature 36.6 C Pulse Rate 100 112 H 98 Respiratory Rate 22 H 32 H Blood Pressure 139/72 Pulse Oximetry 92 Oxygen Delivery Oxygen Flow Rate 09/11/24 09:04 09/11/24 09:04 09/11/24 09:15 Temperature Pulse Rate 106 H 109 H Respiratory Rate 20 20 Blood Pressure Pulse Oximetry 96 Oxygen Delivery High Flow Nasal Cannula Oxygen Flow Rate 6 Intake/Output Intake/Output: Intake & Output 09/08/24 09/09/24 09/10/24 09/11/24 23:59 23:59 23:59 23:59 Intake Total 550 2043.0 350 Output Total 400 Balance 550 1643.0 350 Meds/Results Medications: Active Medications Generic Name Dose Route Start Last Admin Trade Name Freq PRN Reason Stop Dose Admin Acetaminophen 650 mg 09/09/24 15:42 Acetaminophen 325 Mg Tablet PO Q4H PRN Mild Pain (1-3) or Fever Hydrocodone Bitart/Acetaminophen 1 tab 09/09/24 20:00 09/10/24 12:18 Hydrocodone/Acetaminophen (*Crx) 5-325 Mg Tablet PO 1 tab Q6H PRN Administration pain 4-6 Albuterol 2 puff 09/09/24 20:00 09/11/24 04:40 Albuterol Sulfate (*Sp) Aerosol 1 Puff INHALATION 2 puff Q4HRT PRN Administration Shortness Of Breath Or Wheezing Alprazolam 1 mg 09/09/24 21:00 09/10/24 21:18 Alprazolam (*Crx) 0.5 Mg Tablet PO 1 mg QHS HEIDE Administration Atorvastatin Calcium 10 mg 09/09/24 21:00 09/10/24 21:18 Atorvastatin 10 Mg Tablet PO 10 mg HS HEIDE Administration Colestipol HCl 2 gm 09/10/24 09:00 09/11/24 09:26 Colestipol Hcl 1 Gm Tablet PO 2 gm DAILY HEIDE Administration Diltiazem HCl 360 mg 09/10/24 09:00 09/11/24 09:26 Diltiazem Hcl Cd 180 Mg Cap.24hr PO 360 mg DAILY HEIDE Administration Furosemide 40 mg 09/11/24 09:00 09/11/24 09:25 Furosemide Inj 40 Mg/4 Ml Vial IV PUSH 40 mg DAILY HEIDE Administration Ceftriaxone Sodium 2 gm in 100 mls @ 200 mls/hr 09/09/24 20:00 09/10/24 20:08 Rocephin 2 Gm/Ns 100 Ml IVPB 100 mls/hr Q24H HEIDE Administration Doxycycline Hyclate 100 mg in 100 mls @ 100 mls/hr 09/09/24 21:00 09/11/24 09:26 Vibramycin 100 Mg/Ns 100 Ml IVPB 100 mls/hr Q12HR HEIDE Administration Ipratropium [place] 0.5 mg 09/10/24 20:00 09/11/24 09:01 Ipratropium Br 0.02% Inh Soln 0.5 Mg/2.5 Ml Vial INHALATION 0.5 mg Q6HRT HEIDE Administration Pantoprazole Sodium 40 mg 09/09/24 21:00 09/11/24 09:25 Pantoprazole Sodium Iv 40 Mg Vial IV PUSH 40 mg Q12HR HEIDE Administration Perflutren Lipid Microsphere 0 ml 09/09/24 20:23 Perflutren Lipid Microspheres 1.5 Ml Vial Diluted To 10 Ml Total Volume IV PUSH 09/12/24 20:23 ONCE PRN adequate visualization Protocol Potassium Chloride 20 meq 09/09/24 17:00 09/11/24 09:26 Potassium Chloride 20 Meq Er Tablet PO 20 meq BID HEIDE Administration Prednisone 40 mg 09/11/24 08:00 09/11/24 09:26 Prednisone 20 Mg Tablet PO 40 mg DAILY@0800 HEIDE Administration Sertraline HCl 200 mg 09/10/24 09:00 09/11/24 09:25 Sertraline Hcl 50 Mg Tablet PO 200 mg DAILY HEIDE Administration Sodium Chloride 6 ml 09/11/24 05:00 09/11/24 05:45 Sodium Chlor 3% 15 Ml Neb (Respiratory Therapy) INHALATION 09/13/24 05:01 6 ml DAILY@0500 COUNTS INCLUDE 234 BEDS AT THE [facility] Administration Sodium Chloride 6 ml 09/11/24 05:00 Sodium Chlor 3% 15 Ml Neb (Respiratory Therapy) INHALATION 09/13/24 05:01 DAILY@0500 COUNTS INCLUDE 234 BEDS AT THE [facility] Radiology Results: ITS Impressions Chest X-Ray 09/09/24 12:58 IMPRESSION: 1. Worsening still mild to moderate edema and new small bilateral pleural effusions, right greater than left consistent with given history of congestive heart failure. 2. Mild cardiomegaly. Labs Labs: Laboratory Results - last 24 hr 09/10/24 09/11/24 10:43 06:44 WBC 8.2 RBC 3.26 L Hgb 8.8 L Hct 29.0 L MCV 89.0 MCH 27.0 MCHC 30.3 L RDW 16.9 H Plt Count 179 MPV 8.6 PT 15.0 H INR 1.2 Lactate Dehydrogenase 181 Procalcitonin 0.1
--- NOTE | 2024-09-11 10:02 | PM.PNPUL ---
Progress Note: A&P Assessment and Plan (1) COPD exacerbation: Code(s): J44.1 - Chronic obstructive pulmonary disease with (acute) exacerbation Status: Acute Assessment and Plan: Gold grade 2 group E COPD Patient with 82.5 pack year tobacco use, quit 10/06/2022.? Alpha 1 anti trypsin genotype MM.? 07/17/2021: FEV1 is 1.25 L, 62% predicted, FEV1: FVC ratio 59%, no hyperinflation, DLCO moderately decreased at 40% and remains moderately decreased when adjusted for alveolar volume.? CT scan of the chest on 07/20/2022 shows stable pulmonary nodules with moderate apical predominant centrilobular emphysema.? She has used oxygen with exertion for about 2 years and 01/2023 admission she has been on oxygen around the clock.? Currently using 4 L nasal cannula At rest, 4-5 L with activity and 6 L at night. 01/26/23 - echo: EF 65-70%, mildly increased LV wall thickness, LV diastolic function indeterminate, mild aortic valve stenosis area 1.7, mild-mod aortic and tricuspid valve regurgitation, mild pulm HTN with RVSP 44mmHg. echo 03/22/2023 with moderate aortic stenosis with a valve area of 1.5. Echocardiogram 03/15/2024 with moderate aortic stenosis with a valve area of 1.1, moderate aortic regurgitation. RVSP 50, positive right to left bubble. currently with 2 days worsening cough, wheezing, change in phlegm production. Plan: I will treat her for COPD exacerbation. Patient has been placed on Solu-Medrol, day 2. I will continue prednisone 40 mg p.o. q.day. Patient with AFib and will discontinue beta agonists and continue ipratropium nebulizers q.6 hours. Continue ceftriaxone and doxycycline, both day 2. Goal saturation 90 to 94%. Adjust oxygen accordingly. 09/11/2024: Patient tells me she is still short of breath at rest and with activity. Overall she is breathing about the same as when she was admitted. She has a cough that is dry with no phlegm and no hemoptysis. She is afebrile. When I enter the room she was on 8 L nasal cannula saturation 98%. I decreased her to 6 L nasal cannula her saturations were 92%. She is scheduled for right thoracentesis later today. Plan: patient is on prednisone 40, day 3. Continue ceftriaxone and doxycycline, both day 3. Patient has some wheezing on ipratropium nebulizers q.6 hours and I will add levalbuterol 1.25 q.6 hours today. Difficulty expectorating and I will add guaifenesin 1200 mg p.o. b.i.d. Will follow with you. (2) Acute on chronic hypoxic respiratory failure: Code(s): J96.21 - Acute and chronic respiratory failure with hypoxia Status: Acute Assessment and Plan: Patient with a history of COPD, bilateral pleural effusion with compressive atelectasis, fluid overload, positive bubble study with [id number] shunt after 4-5 beats without Valsalva and after 2 beats with Valsalva with bubbles appearing to come from the pulmonary vein rather than through the atrial septum. Anemia with guaiac-positive stools 09/10/24: Plan: Will treat for COPD exacerbation as above. agree with as aggressive diuresis as tolerated by her cardiac and renal systems per Cardiology and hospitalist teams. Currently on Lasix 40 mg IV q.day. diltiazem 360 q.day to control rate. Agree with thoracentesis with full set of chemistries, cell count, microbiology studies, and cytology. Of note, She had a right thoracentesis on 03/19 with removal of 300 mL of kenneth fluid (transudative, noninfected, macrophage predominant, cytology negative effusion). patient with anemia, guaiac-positive stools on Eliquis and Plavix. Continue Protonix. Patient has declined EGD. GI following. 09/11/2024: Slowly improved oxygen requirements. She did not require BiPAP last night. Plan: Continue to treat for COPD exacerbation. Scheduled for right thoracentesis later today. (3) NESTOR (mycobacterium avium-intracellulare): Code(s): A31.0 - Pulmonary mycobacterial infection Status: Acute Assessment and Plan: 03/12/2024 through 03/22/2024: Patient admitted to [facility] with COPD exacerbation, fluid overload and pneumonia. A sputum on 03/18/24 positive for acid-fast bacilli. I called the lab to request sensitivities once this is identified. QuantiFERON GOLD was negative. 03/12/2024: CT angiogram of the chest with no pulmonary embolism mediastinal lymphadenopathy, nodule right middle lobe 7 mm nodule right apical area 1 cm, large bilateral pleural effusions. Increased interstitial thickening in the apical areas right greater than left, no bronchiectasis recommend follow-up in 6 months. ? 04/06/2024:? Patient had 2 days of cough, fatigue, lethargy, SOB, cough with yellow to green phlegm and I treated with levofloxacin 750 q.day x7 days. 04/30/2024: Sputum from 03/18/2024 has grown out NESTOR.? Sensitivities obtained 08/06/2024. 04/30/2024: Sputum from 03/18/2024 has grown out mycobacterium avium intracellulare. ?08/06/24: Sensitivities AMIKACIN:? 16 S mcg/mL ? AMIKACIN (LIPOSOMAL, INHALED):? 16 S mcg/mL ? CIPROFLOXACIN:? >8 mcg/mL ? CLARITHROMYCIN: ?2 S mcg/mL ? CLOFAZIMINE:? 0.25 mcg/mL??? DOXYCYCLINE:? >8 mcg/mL ? LINEZOLID:? 32 R mcg/mL ? MINOCYCLINE:? >8 mcg/mL??? MOXIFLOXACIN:? 4 R mcg/mL ? RIFAMPIN:? >4 mcg/mL ? RIFABUTIN:? 0.5 mcg/mL ? STREPTOMYCIN:? >32 This is a corrected result. ? A prior result that was reported as final has been changed. ? 1. Mycobacterium avium-intracellu ? M.I.C.??? RX?--------- --- ?Rifampin AFB? >4?S ?Amikacin AFB? 16?S ?Moxifloxacin AFB? R? 06/11/2024:? I called our lab to check on the drug sensitivities to NESTOR, and despite me calling on 03/18/24 to get sensitivities these were not started at [facility] until we called back on 06/11/2024.? Additional sputum for AFB on 03/19/2024, 06/10/2024 and 06/11/2024 are smear negative and culture negative at 6 weeks. 08/20/24: Patient has no fever, chills, rigors, chronic phlegm production. She has 1 sputum with NESTOR and 3 negative sputums. Plan: I will order 3 additional sputums for AFB. I will order CT scan of the chest. Sputum for AFB from 08/28/2024, 08/29/2024 and 08/30/2024 smear negative and cultures negative to date. CT scan ordered. CT chest on 09/06/24: Compared with 03/12/2024 bilateral pleural effusions are much less and now very small right and minimal left. Improved bilateral mild interstitial infiltrates without bronchiectasis. Improved right middle lobe nodule. Will follow the patient clinically. 09/10/24: Plan: I will attempt to obtain 3 additional AFB sputums in order to check for 2nd specimen that would have NESTOR and if so she would either be colonized or infected. If she grows out a 2nd specimen with NESTOR will refer to [facility] ID clinic. 09/11/2024: Saline induced sputum was attempted this morning for AFB and the patient did receive this treatment, she coughed but could reduce no phlegm. Will try again tomorrow. Subjective Date/time seen: 09/11/24 10:02 Interval history: 09/10/2024: This is a new pulmonary consult for COPD. 78-year-old with a history of gold grade 2 group B COPD, hypoxemic respiratory failure on 4 L at rest and 8 L with activity and 8 L at night, NESTOR in 1 sputum (3 additional negative sputums), and congestive heart failure, atrial fibrillation, right transudative pleural effusion. patient is followed in the Pulmonary Clinic in last seen on 08/20/2024. this is a copy of the note She has no hospitalizations since 03/22/2024. She was treated by her PCP with Levaquin in July and took this for 7 days and this helped clear her congestion. Currently the patient is telling me she is having a good day. She has no rest short of breath. Her cough and phlegm production are at her baseline. Patient is currently taking Stiolto Respimat at 1 puff twice a day, she increased weight from 160-165 and she increased her Lasix from 40 p.o. b.i.d. to t.i.d., she takes rescue albuterol 1 time a week. The patient is wearing 6-8 L when she sits and her saturations are 91-95%. She is using 8 L at night. She is using 8 L when she walks with physical therapy in her apartment and her saturations go down to 81-85%. Currently the patient was on 6 L with saturations 94%. When the patient stood up for 2 minutes her saturations were 93%. I walked her to the door and back which is what she says she walks at home and her saturations remain 90. she has atrial fibrillation and her pulse oximeter sometimes has difficulty picking up accurate information. She is asymptomatic with these low saturations with activity. The patient denies any fever, chills, rigors or weight loss. Her weight today is 160. She is not smoking or exposed to secondhand smoke. Her CAT score today is 31. Plan: regarding her COPD I continued Stiolto Respimat, rescue albuterol ordered a home O2 assessment, CT scan of the chest. regarding her hypoxemia I ordered a home O2 assessment and she required 4 L at rest and 8 L with activity. Regarding her NESTOR she had 1 positive sputum on 03/18 with negative sputum on 03/19, 3 2 and 3 3. I ordered 3 additional sputums and all are smear negative cultures are pending CT scan of the chest on 09/06/2024 showed improved bilateral pleural effusions, immune improved interstitial infiltrates and improved right middle lobe nodule since 03/12/2024. 09/09/2024 patient presented to the emergency room with 1-2 days history worsening shortness of breath, wheezing, cough, change in phlegm from clear to brown with no fever. She had worsening dyspnea on exertion with no swelling. White blood cell count was 10.8, her creatinine is 0.84, her BNP was 2600, her troponins were negative x3. Her chest x-ray showed congestion with right greater than left pleural effusion. Patient was initially treated with Solu-Medrol, bronchodilators, ceftriaxone, doxycycline, Lasix IV and BiPAP. She refused blood gas. Her hemoglobin was 6.7 and she received 2 units of packed red blood cells. 09/10/2024: Today the patient tells me that she is breathing normally when she talks, she has increased phlegm production which remains brown, her wheezing is better. She is currently on 8 L nasal cannula saturations 92%. Her white blood cell count is 7.1, creatinine is 0.71, her BNP is 1880. She is cumulative positive 397 since admission. Her weight today is 74.2 with an admission weight of 75.4. She has declined EGD. 09/11/2024: Patient tells me she is still short of breath at rest and with activity. Overall she is breathing about the same as when she was admitted. She has a cough that is dry with no phlegm and no hemoptysis. She is afebrile. When I enter the room she was on 8 L nasal cannula saturation 98%. I decreased her to 6 L nasal cannula her saturations were 92%. She is scheduled for right thoracentesis later today. DATA 09/06/24: CT Scan of the Chest without Contrast: Clinical Indication: COPD Technique: Contiguous sections were acquired throughout the chest without intravenous contrast. Dose reduction technique was used on this scan by utilizing automated exposure control and iterative reconstruction technique. The dose-length product (DLP) was 169.98 mGy-cm. COMPARISON: 04-03 Findings: There is no evidence of any significant mediastinal, hilar or axillary lymphadenopathy. There are extensive atherosclerotic calcifications of the aorta and coronary arteries. No pericardial effusion. Small bilateral pleural effusions are present. There is diffuse interstitial edema. Images through the upper abdomen reveal no abnormalities. Right-sided breast implant versus ovoid mass is stable from prior exam. Stable T8 compression fracture. Impression: Small bilateral pleural effusions with interstitial pulmonary edema. Stable right breast implant versus less likely mass. Correlate with prior history. Stable T8 compression fracture. Compared with 03/12/2024 bilateral pleural effusions are much less and now very small right and minimal left. Improved bilateral mild interstitial infiltrates without bronchiectasis. Improved right middle lobe nodule. Will follow the patient clinically. 09/05/24: Home O2 assessment: Rest room air saturation 77%. Rest nasal cannula 2 L saturation 85%. Rest nasal cannula 4 L saturation 90%. Exercise 4 L nasal cannula saturation 85%. Exercise nasal cannula 6 L saturation 87%. Exercise 7 L nasal cannula saturation 88%. Exercise 8 L nasal cannula saturation 90%. Patient requires 4 L at rest and 8 with activity. Sputum for AFB from 08/28/2024, 08/29/2024 and 08/30/2024 is pending. 06/11/2024: Sputum AFB smear negative, culture negative at 6 weeks 06/10/2024:? Sputum AFB smear negative, culture negative at 6 weeks 04/30/2024: Sputum from 03/18/2024 has grown out mycobacterium avium intracellulare. ?08/06/24: Sensitivities AMIKACIN:? 16 S mcg/mL ? AMIKACIN (LIPOSOMAL, INHALED):? 16 S mcg/mL ? CIPROFLOXACIN:? >8 mcg/mL ? CLARITHROMYCIN: ?2 S mcg/mL ? CLOFAZIMINE:? 0.25 mcg/mL??? DOXYCYCLINE:? >8 mcg/mL ? LINEZOLID:? 32 R mcg/mL ? MINOCYCLINE:? >8 mcg/mL??? MOXIFLOXACIN:? 4 R mcg/mL ? RIFAMPIN:? >4 mcg/mL ? RIFABUTIN:? 0.5 mcg/mL ? STREPTOMYCIN:? >32 This is a corrected result. ? A prior result that was reported as final has been changed. ? 1. Mycobacterium avium-intracellu ? M.I.C.??? RX?--------- --- ?Rifampin AFB? >4?S ?Amikacin AFB? 16?S ?Moxifloxacin AFB? R? 03/19/2024: Sputum smear negative for AFB and culture negative at 6 weeks. 03/19/24: Pleural fluid: 300 mL of kenneth fluid removed. G stain was many white blood cells, no organisms seen. PH greater than 7.50, white blood cell count 2109 with a differential neutrophils 17%, lymphocytes 32%, macrophages 38%, mesothelial cells 13%. she says her breathing immediately improved with the thoracentesis. Pleural LDH 184/ serum LDH 363= 0.51 . pleural total protein 3.0/ serum total protein 7.0 equals 0.43. serum albumin 4.1, pleural albumin 2.0, gradient 2.1. Pleural glucose 110, pleural cholesterol 33. Pleural cytology negative for malignancy. anaerobic culture negative. Fungal stain and culture negative. AFB smear and culture negative. This pleural effusion is a transudative, noninfected, macrophage predominant, cytology negative effusion., 11/04/2023: Polysomnogram Periodic Limb Movements The patient had 87 isolated limb movements with an index of 14.1. The patient had 215 periodic limb movements with an index of 34.9, which is elevated (normal <15). Patient had a total of 302 limb movements with a total limb movement index of 49.0. Assessment and plan: (1) Nocturnal hypoxemia: The patient had an overall AHI of 2.1 with desaturation down to 77%. This is not consistent with sleep-disordered breathing. The patient had persistent hypoxemia in the absence of respiratory events. Supplemental oxygen was started at 1 lpm of O2 and titrated to 3.5 lpm of O2. The patient oxygen saturation was unable to remain above 90% on the final oxygen settings. I recommend that the patient use 4 lpm of supplemental oxygen with sleep. I recommend that she have a nocturnal oximetry done 2 weeks after implementing the recommended oxygen settings to ensure that her oxygen saturation remains above 90%. (2) PLMD (periodic limb movement disorder): The patient had a significant number of limb movements during the study with the majority being periodic in nature. Approximately 25% of the periodic limb movements caused arousals during sleep. The patient's sleep history does not suggest Restless Leg Syndrome. I recommend that the patient have a serum ferritin drawn for evaluation of iron deficiency anemia. If the patient has a serum ferritin less than 75 ng/mL, I recommend starting a daily iron supplement and a Vitamin C supplement for better absorption. If the serum ferritin is greater than 75 ng/mL, I recommend starting a dopamine agonist and titrating the dose until symptoms resolve. There are nonpharmacological methods to treat limb movements including daily exercise, stretching calf muscles before bed, avoiding excessive amounts of caffeine and alcohol, vitamin B supplementation, magnesium lotion massaged into legs before bed, and use of a weighted blanket. I will order ferritin blood test. 10/25/2023: Overnight oximetry on 6 L nasal cannula. The family was present for this test and confirmed the patient was on 6 L, and that she wore the 6 L all night. Recording duration 9 hours and 57 minutes. Basal saturation 94.6%. High saturation 99%. Low saturation 82%. Time with saturation less than or equal to 88% was 2 minutes and 26 seconds. Oxygen desaturation index was 7. I will continue 6 L nasal cannula at night. 07/06/2023 ([place] [facility] [place]? Overnight oximetry on 5 L nasal cannula.? Recording duration 9 hours and 35 minutes.? Basal saturation 86.6%.? High saturation 98%.? Low saturation 65%.? Time with saturation less than or equal to 88% was 4 hours and 28 minutes.? Oxygen desaturation index is 20. unsure if patient was wearing oxygen and at what level, repeat ordered on 5 L 05/13/2023: Home O2 assessment:? Rest room air saturation 86%.? Rest nasal cannula 1 L saturation 88%.? Rest nasal cannula 2 L saturation 90%.? Exercise nasal cannula 2 L saturation 88%.? Exercise nasal cannula 3 L saturation 90%. ?Requires 2 L with rest and 3 with activity 03/12/30 EXAMINATION: XR chest 1V portable ??INDICATION: Pleural effusions. ??COMPARISON: Chest single view 04/08/2023, chest CT 03/30/2023 ??FINDINGS: There is a diffuse interstitial pattern in the lungs. There are airspace opacities in right mid and lower lung zones and left lower lung zone. There are small pleural effusions. No pneumothorax. Cardiomegaly is noted. ??IMPRESSION: ??1. Stable diffuse lung disease, consistent with pulmonary edema versus pneumonia. ??2. Stable small pleural effusions. ??3. Cardiomegaly. ?03/23/23: EXAMINATION: CTA chest PE protocol ??DATE: 03/23/2023 14:04 ??INDICATION: SOB ??COMPARISON: 07/20/2022 ??FINDINGS: The pulmonary arteries are well-opacified. No pulmonary embolism is identified. There are moderate-sized right and small left pleural effusions. There is complete left upper lobe collapse due to mucous plugging. There is also complete atelectasis of the right middle lobe. There is intralobular septal thickening with groundglass opacity with a right lung predominance. There is dependent atelectasis of the left lower lobe. There is a right breast implant. There is mild bilateral hilar and mediastinal lymphadenopathy, likely reactive. No pneumothorax is identified. Punctate calcifications in an otherwise normal spleen likely represent healed granulomatous disease. Changes of cholecystectomy are noted. There is moderate thoracic spondylosis. A chronic T8 compression fracture is noted. ??IMPRESSION: ??1. No pulmonary embolus. ??2. Left upper lobe collapse related to mucous plugging ??3. Complete atelectasis of the right middle lobe. ??4. Moderate size right and small left pleural effusions. ??5. Findings consistent with asymmetric edema of the right upper lobe. ?03/30/[address] Mild pulmonary edema. ??2. Mild atelectasis in the lungs with interval improvement. ??3. Moderate emphysema. ??4. Small pleural effusions. ?03/22/23 Echo Summary ??? 1. Complete two-dimensional, color flow and Doppler transthoracic ??echocardiogram is performed. ??? 2. Severe pulmonary artery enlargement. ??? 3. Left ventricular chamber dimension is normal. ??? 4. Left ventricular systolic function is normal, estimated at 60-65%. ??? 5. There is mildly increased left ventricular wall thickness. ??? 6. The left ventricular diastolic function is grade II diastolic ??dysfunction. ??? 7. The basal inferior wall is akinetic. ??? 8. Left atrial chamber dimension is moderately enlarged. ??? 9. Right atrial chamber dimension is mildly enlarged. ??? 10. Right ventricular chamber dimension is mildly enlarged. ??? 11. There is moderate aortic valve stenosis with a peak velocity of 224 ??cm/s, mean gradient of 11 mmHg, and aortic valve area of 1.5 cm2. ??? 12. There is moderate aortic valve regurgitation. ??? 13. There is moderate aortic valve calcification. ?? 14. The mitral valve annulus is mildly calcified. ??? 15. There is moderate mitral valve regurgitation. ??? 16. There is mild tricuspid valve regurgitation. ??? 17. Mild pulmonary hypertension, estimated pulmonary arterial systolic ??pressure is 43 mmHg. ??? 18. There is mild pulmonic regurgitation. ??Right Ventricle ??? Right ventricular chamber dimension is mildly enlarged. ??? Right ventricular systolic function is normal. ??Right Atria ??? Right atrial chamber dimension is mildly enlarged. ?? * 03/17/23 CXR compared to 01/24 CXR with intervall progression of bilateral airspace disease which may represent edema and/or pneumonia. ??document embedded image ??* 01/26/23 - echo: EF 65-70%, mildly increased LV wall thickness, LV diastolic function indeterminate, mild aortic valve stenosis, mild-mod aortic and tricuspid valve regurgitation, mild pulmHTN RVSP 44mmHg. ??* 07/20/[address] - Stable pulmonary nodules, likely benign. Moderate emphysema. ??Moderate obstructive airway disease by PFT in July of 2021, severely lung diffusion capacity. ??* 12/16/21 Home O2 Eval - need for 2L O2 with activity, none at rest. ??* 01/26/22: Overnight oximetry - 324 min spent below 88% saturation. ? ?07/17/2021 PFTs ?The test was performed and results interpreted in accordance with the 2019 and 2005 ATS/ERS Task Force guidelines respectively using the Global Lung Function Initiative-2012 reference equations. Patient demonstrated good effort and cooperation. Reproducibility criteria were met. The quality of the spirometry maneuver was Grade A.? Of note the patient had persistent coughing throughout the test. ?Findings: ?Spirometry:? There is decreased maximal expiratory airflow at all lung volumes with a concave expiratory flow tracing.? The contour the inspiratory flow tracing is normal.? The FVC is 2.13 L, 81% predicted.? The FEV1 is 1.25 L, 62% predicted.? The FEV1:? FVC ratio is 59%. ?Plethysmography:? The total lung capacity is 5.70 L, 112% predicted.? The functional residual capacity is 4.32 L, 148% predicted.? The residual volume is 3.04 L, 130% predicted.? ?Diffusing capacity:? The diffusing capacity unadjusted for hemoglobin and carboxyhemoglobin is 8.0, 40% predicted.? The diffusing capacity adjusted for alveolar volume is 2.26, 54% predicted. ?Impression: There is a moderate obstructive abnormality. Hyperinflation is present is demonstrated by the increase in functional residual capacity and is consistent with an obstructive abnormality. The diffusing capacity unadjusted for hemoglobin is moderately decreased and normalizes when adjusted for alveolar volume. ?There are no prior studies for comparison ? ??* 05/25/22 : Overnight oximetry on 2.5L O2 - 13min spent below 88% but looks likely artifact. She continued 2.5L. ??* 07/26/20 - Chest CT:? mild to moderate emphysema. 6 mm right middle lobe nodule along a band of linear discoid atelectasis/scarring. ??* Alpha 1 MM normal.Alpha 1 PIMM normal Review of Systems Constitutional: Constitutional: Reports no additional constitutional complaints Eyes: Eyes: Reports no additional eye complaints ENT: Reports system reviewed and no additional complaints, except as documented Cardiovascular: Cardiovascular: Reports no additional cardiovascular complaints Respiratory: Respiratory: Reports no additional respiratory complaints Gastrointestinal: Gastrointestinal: Reports no additional gastrointestinal complaints Musculoskeletal: Musculoskeletal: Reports no additional musculoskeletal complaints Neurologic: Reports system reviewed and no additional complaints, except as documented Psychiatric: Psychiatric: Reports no additional psychiatric complaints Endocrine: Endocrine: Reports no additional endocrine complaints Hematologic/Lymphatic: Hematologic/Lymphatic: Reports no additional hematologic/lymphatic complaints Allergic/Immunologic: Allergic/Immunologic: Reports no additional allergic/immunologic complaints Exam Const: General: cooperative, healthy appearing and comfortable Orientation/consciousness: oriented to person, oriented to place and oriented to time HENMT: Head: normal to inspection Ears: hearing grossly normal bilaterally Eyes: General: appearance normal, both eyes and all related structures Neck: Neck: normal visual inspection Chest: Chest palpation & inspection: normal inspection of the chest Resp: Effort & Inspection: normal respiratory effort and able to speak in complete sentences Auscultation: crackles, no rales, no rhonchi, wheezes and diminished lung sounds Other: Few scattered expiratory wheezes, Diminished at the bases. Cardio: Jugular venous distension: no JVD GI: Inspection: normal to inspection Skin: General skin exam: normal color Neuro: General: oriented to person, oriented to place and oriented to time Extrem: General: normal to inspection and edema Psych: Appearance: grossly normal Objective Data Vital Signs Vital Signs: Vital Signs - 24 hr 09/10/24 12:00 09/10/24 12:00 09/10/24 14:00 Temperature Pulse Rate 121 H 120 H 112 H Respiratory Rate 20 Blood Pressure Pulse Oximetry 99 Oxygen Delivery High Flow Therapy with Na Oxygen Flow Rate 09/10/24 14:46 09/10/24 15:00 09/10/24 16:00 Temperature Pulse Rate 103 H 99 107 H Respiratory Rate 20 20 20 Blood Pressure Pulse Oximetry 95 Oxygen Delivery High Flow Therapy with Na Oxygen Flow Rate 8 09/10/24 16:00 09/10/24 16:00 09/10/24 18:00 Temperature 36.9 C Pulse Rate 107 H 113 H 114 H Respiratory Rate 26 H Blood Pressure 150/70 H Pulse Oximetry 93 Oxygen Delivery Oxygen Flow Rate 09/10/24 18:35 09/10/24 19:31 09/10/24 19:32 Temperature Pulse Rate 108 H 108 H Respiratory Rate 24 H Blood Pressure 141/65 H Pulse Oximetry 95 Oxygen Delivery High Flow Therapy with Na Oxygen Flow Rate 8 09/10/24 20:00 09/10/24 20:42 09/10/24 20:48 Temperature 36.6 C Pulse Rate 104 H 104 H Respiratory Rate 18 26 H 22 H Blood Pressure 140/76 Pulse Oximetry 90 Oxygen Delivery Oxygen Flow Rate 09/10/24 21:01 09/10/24 22:00 09/11/24 00:00 Temperature Pulse Rate 104 H 101 H 99 Respiratory Rate 24 H Blood Pressure Pulse Oximetry 93 Oxygen Delivery High Flow Nasal Cannula Oxygen Flow Rate 8 09/11/24 00:00 09/11/24 02:00 09/11/24 02:34 Temperature 36.6 C Pulse Rate 97 100 102 H Respiratory Rate 18 16 Blood Pressure 119/74 Pulse Oximetry 95 Oxygen Delivery Oxygen Flow Rate 09/11/24 02:42 09/11/24 03:17 09/11/24 04:00 Temperature Pulse Rate 90 87 Respiratory Rate 18 Blood Pressure Pulse Oximetry 95 Oxygen Delivery High Flow Nasal Cannula Oxygen Flow Rate 8 09/11/24 04:00 09/11/24 04:40 09/11/24 05:45 Temperature 36.7 C Pulse Rate 102 H 102 H 102 H Respiratory Rate 18 18 20 Blood Pressure 134/63 Pulse Oximetry 90 Oxygen Delivery Oxygen Flow Rate 09/11/24 06:00 09/11/24 06:05 09/11/24 08:00 Temperature 36.6 C Pulse Rate 100 112 H 98 Respiratory Rate 22 H 32 H Blood Pressure 139/72 Pulse Oximetry 92 Oxygen Delivery Oxygen Flow Rate 09/11/24 09:04 09/11/24 09:04 09/11/24 09:15 Temperature Pulse Rate 106 H 109 H Respiratory Rate 20 20 Blood Pressure Pulse Oximetry 96 Oxygen Delivery High Flow Nasal Cannula Oxygen Flow Rate 6 Intake/Output Intake/Output: Intake & Output 09/08/24 09/09/24 09/10/24 09/11/24 23:59 23:59 23:59 23:59 Intake Total 550 2043.0 350 Output Total 400 Balance 550 1643.0 350 Meds/Results Medications: Active Medications Generic Name Dose Route Start Last Admin Trade Name Freq PRN Reason Stop Dose Admin Acetaminophen 650 mg 09/09/24 15:42 Acetaminophen 325 Mg Tablet PO Q4H PRN Mild Pain (1-3) or Fever Hydrocodone Bitart/Acetaminophen 1 tab 09/09/24 20:00 09/10/24 12:18 Hydrocodone/Acetaminophen (*Crx) 5-325 Mg Tablet PO 1 tab Q6H PRN Administration pain 4-6 Albuterol 2 puff 09/09/24 20:00 09/11/24 04:40 Albuterol Sulfate (*Sp) Aerosol 1 Puff INHALATION 2 puff Q4HRT PRN Administration Shortness Of Breath Or Wheezing Alprazolam 1 mg 09/09/24 21:00 09/10/24 21:18 Alprazolam (*Crx) 0.5 Mg Tablet PO 1 mg QHS HEIDE Administration Atorvastatin Calcium 10 mg 09/09/24 21:00 09/10/24 21:18 Atorvastatin 10 Mg Tablet PO 10 mg HS HEIDE Administration Colestipol HCl 2 gm 09/10/24 09:00 09/11/24 09:26 Colestipol Hcl 1 Gm Tablet PO 2 gm DAILY HEIDE Administration Diltiazem HCl 360 mg 09/10/24 09:00 09/11/24 09:26 Diltiazem Hcl Cd 180 Mg Cap.24hr PO 360 mg DAILY HEIDE Administration Furosemide 40 mg 09/11/24 09:00 09/11/24 09:25 Furosemide Inj 40 Mg/4 Ml Vial IV PUSH 40 mg DAILY HEIDE Administration Ceftriaxone Sodium 2 gm in 100 mls @ 200 mls/hr 09/09/24 20:00 09/10/24 20:08 Rocephin 2 Gm/Ns 100 Ml IVPB 100 mls/hr Q24H HEIDE Administration Doxycycline Hyclate 100 mg in 100 mls @ 100 mls/hr 09/09/24 21:00 09/11/24 09:26 Vibramycin 100 Mg/Ns 100 Ml IVPB 100 mls/hr Q12HR HEIDE Administration Ipratropium [place] 0.5 mg 09/10/24 20:00 09/11/24 09:01 Ipratropium Br 0.02% Inh Soln 0.5 Mg/2.5 Ml Vial INHALATION 0.5 mg Q6HRT HEIDE Administration Pantoprazole Sodium 40 mg 09/09/24 21:00 09/11/24 09:25 Pantoprazole Sodium Iv 40 Mg Vial IV PUSH 40 mg Q12HR HEIDE Administration Perflutren Lipid Microsphere 0 ml 09/09/24 20:23 Perflutren Lipid Microspheres 1.5 Ml Vial Diluted To 10 Ml Total Volume IV PUSH 09/12/24 20:23 ONCE PRN adequate visualization Protocol Potassium Chloride 20 meq 09/09/24 17:00 09/11/24 09:26 Potassium Chloride 20 Meq Er Tablet PO 20 meq BID HEIDE Administration Prednisone 40 mg 09/11/24 08:00 09/11/24 09:26 Prednisone 20 Mg Tablet PO 40 mg DAILY@0800 HEIDE Administration Sertraline HCl 200 mg 09/10/24 09:00 09/11/24 09:25 Sertraline Hcl 50 Mg Tablet PO 200 mg DAILY HEIDE Administration Sodium Chloride 6 ml 09/11/24 05:00 09/11/24 05:45 Sodium Chlor 3% 15 Ml Neb (Respiratory Therapy) INHALATION 09/13/24 05:01 6 ml DAILY@0500 HEIDE Administration Sodium Chloride 6 ml 09/11/24 05:00 Sodium Chlor 3% 15 Ml Neb (Respiratory Therapy) INHALATION 09/13/24 05:01 DAILY@0500 [facility] Radiology Results: ITS Impressions Chest X-Ray 09/09/24 12:58 IMPRESSION: 1. Worsening still mild to moderate edema and new small bilateral pleural effusions, right greater than left consistent with given history of congestive heart failure. 2. Mild cardiomegaly. Labs Labs: Laboratory Results - last 24 hr 09/10/24 09/11/24 10:43 06:44 WBC 8.2 RBC 3.26 L Hgb 8.8 L Hct 29.0 L MCV 89.0 MCH 27.0 MCHC 30.3 L RDW 16.9 H Plt Count 179 MPV 8.6 PT 15.0 H INR 1.2 Lactate Dehydrogenase 181 Procalcitonin 0.1
[2024-09-11] MEDS: ACETAMINOPHEN 325 MG TABLET 650 MG PO (12:35)
[2024-09-11] MEDS: guaiFENesin 12 HR 600 MG TABCR 1200 MG PO ×2 (12:36→20:34)
--- NOTE | 2024-09-11 14:11 | PC.NURSE ---
Pt to US for thoracentesis
--- NOTE | 2024-09-11 14:30 | CY_PTH ---
PATIENT: Maria Dolores Henry LOC: [id number] U#:[id number] AGE/SX: 78/F ROOM: 330 RE09/10/[address]: Leon Jama MD : 1945 BED: 02 DIS: 09/13/2024 SPEC #: [id number] RECD: 09/12/24 07:32 STATUS: TORSTEN REGeorgie #: [id number] LUZ: 09/11/24 14:[address]: Leon Jama DEPT: [facility] Cytology RECD BY: Ledy Azul ENTERED: 09/12/24 07:33 SP TYPE: Cytology OTHR DR: MD Adis Mcclain DO Edmundo A. Rodriguez-Frias, MD Amardeep Shrestha, MD Michael J. Walter, MD Tissues: A - Pleural Fluid Procedures: Hematoxylin and Eosin Stain Cell Block Cytopathology Cytospin
--- NOTE | 2024-09-11 15:01 | PC.NURSE ---
Pt returned from US post-thoracentesis. No issues noted
[2024-09-11] MEDS: LEVALBUTEROL NEB 1.25 MG/3 ML INHALATION ×2 (15:10→20:49)
[2024-09-11 15:37] LABS: Appearance Pleural Fluid Cloudy (Clear); Color Pleural Fluid Brown (Colorless); Pleural fluid source Pleural fluid
[2024-09-11 16:10] LABS: pH Pleural Fluid > 7.500 (7.210-7.500)
--- NOTE | 2024-09-11 17:25 | PM.IMPN ---
Progress Note: A&P Assessment and Plan (1) COPD exacerbation: Code(s): J44.1 - Chronic obstructive pulmonary disease with (acute) exacerbation Status: Acute Assessment and Plan: Previous history of pleural effusion which indicated transudative Baseline 6-8 L at rest Continue DuoNeb q.4 hours Started ceftriaxone and doxycycline Comorbid conditions CHF Patient denies smoking and KAREEM Came from ED with BiPAP but currently on HFNC Pending medication reconciliation from pharmacy Pulmonology consulted CT Chest:Small bilateral pleural effusions with interstitial pulmonary edema. Stable right breast implant versus less likely mass. Correlate with prior history. Stable T8 compression fracture. (2) SOB (shortness of breath): Code(s): R06.02 - Shortness of breath Status: Acute Assessment and Plan: as mentioned above (3) Anxiety: Code(s): F41.9 - Anxiety disorder, unspecified Status: Acute Assessment and Plan: Continue Xanax 1 mg p.o. q.h.s. (4) Hypertension: Qualifiers: Hypertension type: primary hypertension Qualified Code(s): I10 - Essential (primary) hypertension Code(s): I10 - Essential (primary) hypertension Status: Chronic Assessment and Plan: Diltiazem 360 mg p.o. q.d. (5) CHF (congestive heart failure): Code(s): I50.9 - Heart failure, unspecified Status: Acute Assessment and Plan: Echo performed on March 2024 showing right to left shunt by positive agitated saline study, normal LV size and systolic fxn with EF 50-55%, dilated RV with preserved systolic function and moderate , moderate AI and mild MR. In Mar 2023, EF 60-65%, Grade II diastolic dysfunction, akinetic basal inferior wall and moderate , moderate MR and mild pulmonary HTN. Moderate has worsened with ESTRELLITA 1.5 -> 1.1cm2 now. Repeat ECHO Start Lasix 40 mg IV BID Cardiology consulted (6) Chronic anticoagulation: Code(s): Z79.01 - nursing home (current) use of anticoagulants Status: Acute Assessment and Plan: Holding Eliquis and clopidogrel for thoracentesis (7) NESTOR (mycobacterium avium-intracellulare): Code(s): A31.0 - Pulmonary mycobacterial infection Status: Acute Assessment and Plan: 1 sputum with NESTOR and 3 negative sputums. Follows up with the pulmonology as outpatient (8) Anemia: Code(s): D64.9 - Anemia, unspecified Status: Chronic Assessment and Plan: Order PPI b.i.d. Received 1 unit PRBC Monitor H&H FOBT positive Holding Eliquis and Plavix GI consulted (9) Pleural effusion: Code(s): J90 - Pleural effusion, not elsewhere classified Status: Acute Assessment and Plan: Ordered thoracentesis Order Lasix 40 mg IV b.i.d. Plan Holding anticoagulation due to possible GI bleed Ordered SCD Subjective Date/time seen: 09/11/24 17:25 Interval history: Underwent thoracentesis. Discussed about getting possibly EGD. Patient will discuss with her daughter and will let the decision tomorrow Review of Systems Review of Systems: All systems reviewed & are unremarkable except as noted in HPI and below Exam Narrative: General appearance: Well-developed, well-nourished Skin: Normal color Head: Normocephalic, nontraumatic Eyes: Clear conjunctiva ENT: Oropharynx normal, ears normal, nose normal Neck: Supple, nontender Chest and respiratory: Airway patent, [place] of air entry bilaterally, no wheezing, no rhonchi, no basilar rales slight labored breathing Heart: Regular rate/rhythm Abdomen: Soft, nontender, no organomegaly, quiet bowel sounds, guaiac stool positive for blood Vascular: Normal peripheral pulses, normal capillary refill. Musculoskeletal: Normal range of motion, nontender back Neurologic: Alert and oriented ?3, [employer] is normal as tested, no gross motor deficit Objective Data Vital Signs Vital Signs: Vital Signs - 24 hr 09/10/24 18:00 09/10/24 18:35 09/10/24 19:31 Temperature Pulse Rate 114 H 108 H Respiratory Rate 24 H Blood Pressure 141/65 H Pulse Oximetry 95 Oxygen Delivery High Flow Therapy with Na Oxygen Flow Rate 8 09/10/24 19:32 09/10/24 20:00 09/10/24 20:42 Temperature 97.8 F Pulse Rate 108 H 104 H Respiratory Rate 18 26 H Blood Pressure 140/76 Pulse Oximetry 90 Oxygen Delivery Oxygen Flow Rate 09/10/24 20:48 09/10/24 21:01 09/10/24 22:00 Temperature Pulse Rate 104 H 104 H 101 H Respiratory Rate 22 H 24 H Blood Pressure Pulse Oximetry 93 Oxygen Delivery High Flow Nasal Cannula Oxygen Flow Rate 8 09/11/24 00:00 09/11/24 00:00 09/11/24 02:00 Temperature 97.8 F Pulse Rate 99 97 100 Respiratory Rate 18 Blood Pressure 119/74 Pulse Oximetry 95 Oxygen Delivery Oxygen Flow Rate 09/11/24 02:34 09/11/24 02:42 09/11/24 03:17 Temperature Pulse Rate 102 H 90 Respiratory Rate 16 18 Blood Pressure Pulse Oximetry 95 Oxygen Delivery High Flow Nasal Cannula Oxygen Flow Rate 8 09/11/24 04:00 09/11/24 04:00 09/11/24 04:40 Temperature 98.0 F Pulse Rate 87 102 H 102 H Respiratory Rate 18 18 Blood Pressure 134/63 Pulse Oximetry 90 Oxygen Delivery Oxygen Flow Rate 09/11/24 05:45 09/11/24 06:00 09/11/24 06:05 Temperature Pulse Rate 102 H 100 112 H Respiratory Rate 20 22 H Blood Pressure Pulse Oximetry Oxygen Delivery Oxygen Flow Rate 09/11/24 08:00 09/11/24 08:00 09/11/24 08:00 Temperature 97.8 F Pulse Rate 98 109 H 105 H Respiratory Rate 32 H 20 Blood Pressure 139/72 Pulse Oximetry 92 96 Oxygen Delivery High Flow Nasal Cannula Oxygen Flow Rate 8 09/11/24 09:00 09/11/24 09:04 09/11/24 09:04 Temperature Pulse Rate 106 H Respiratory Rate 20 Blood Pressure Pulse Oximetry 96 96 Oxygen Delivery High Flow Nasal Cannula High Flow Nasal Cannula Oxygen Flow Rate 6 6 09/11/24 09:15 09/11/24 10:00 09/11/24 12:00 Temperature 98.3 F Pulse Rate 109 H 109 H 119 H Respiratory Rate 20 28 H Blood Pressure 147/82 H Pulse Oximetry 92 Oxygen Delivery Oxygen Flow Rate 09/11/24 12:00 09/11/24 12:00 09/11/24 14:00 Temperature Pulse Rate 119 H 113 H 121 H Respiratory Rate 28 H Blood Pressure Pulse Oximetry 92 Oxygen Delivery High Flow Nasal Cannula Oxygen Flow Rate 4 09/11/24 15:02 09/11/24 15:57 09/11/24 16:00 Temperature 98.2 F Pulse Rate 99 129 H 129 H Respiratory Rate 20 20 20 Blood Pressure 118/88 Pulse Oximetry 99 99 Oxygen Delivery High Flow Nasal Cannula Oxygen Flow Rate 4 09/11/24 16:00 Temperature Pulse Rate 126 H Respiratory Rate Blood Pressure Pulse Oximetry Oxygen Delivery Oxygen Flow Rate Intake/Output Intake/Output: Intake & Output 09/08/24 09/09/24 09/10/24 09/11/24 23:59 23:59 23:59 23:59 Intake Total 550 2043.0 450 Output Total 400 250 Balance 550 1643.0 200 Meds/Results Medications: Active Medications Generic Name Dose Route Start Last Admin Trade Name Freq PRN Reason Stop Dose Admin Acetaminophen 650 mg 09/09/24 15:42 09/11/24 12:35 Acetaminophen 325 Mg Tablet PO 650 mg Q4H PRN Administration Mild Pain (1-3) or Fever Hydrocodone Bitart/Acetaminophen 1 tab 09/09/24 20:00 09/10/24 12:18 Hydrocodone/Acetaminophen (*Crx) 5-325 Mg Tablet PO 1 tab Q6H PRN Administration pain 4-6 Albuterol 2 puff 09/09/24 20:00 09/11/24 04:40 Albuterol Sulfate (*Sp) Aerosol 1 Puff INHALATION 2 puff Q4HRT PRN Administration Shortness Of Breath Or Wheezing Alprazolam 1 mg 09/09/24 21:00 09/10/24 21:18 Alprazolam (*Crx) 0.5 Mg Tablet PO 1 mg QHS HEIDE Administration Atorvastatin Calcium 10 mg 09/09/24 21:00 09/10/24 21:18 Atorvastatin 10 Mg Tablet PO 10 mg HS HEIDE Administration Colestipol HCl 2 gm 09/10/24 09:00 09/11/24 09:26 Colestipol Hcl 1 Gm Tablet PO 2 gm DAILY HEIDE Administration Diltiazem HCl 360 mg 09/10/24 09:00 09/11/24 09:26 Diltiazem Hcl Cd 180 Mg Cap.24hr PO 360 mg DAILY HEIDE Administration Furosemide 40 mg 09/11/24 09:00 09/11/24 09:25 Furosemide Inj 40 Mg/4 Ml Vial IV PUSH 40 mg DAILY HEIDE Administration Guaifenesin 1,200 mg 09/11/24 10:10 09/11/24 12:36 Guaifenesin 12 Hr 600 Mg Tabcr PO 1,200 mg Q12HR HEIDE Administration Ceftriaxone Sodium 2 gm in 100 mls @ 200 mls/hr 09/09/24 20:00 09/10/24 20:08 Rocephin 2 Gm/Ns 100 Ml IVPB 100 mls/hr Q24H HEIDE Administration Doxycycline Hyclate 100 mg in 100 mls @ 100 mls/hr 09/09/24 21:00 09/11/24 16:48 Vibramycin 100 Mg/Ns 100 Ml IVPB Infused Q12HR HEIDE Infusion Ipratropium [place] 0.5 mg 09/10/24 20:00 09/11/24 15:01 Ipratropium Br 0.02% Inh Soln 0.5 Mg/2.5 Ml Vial INHALATION 0.5 mg Q6HRT HEIDE Administration Levalbuterol HCl 1.25 mg 09/11/24 14:00 09/11/24 15:10 Levalbuterol Neb 1.25 Mg/3 Ml INHALATION 1.25 mg Q6HRT HEIDE Administration Pantoprazole Sodium 40 mg 09/09/24 21:00 09/11/24 09:25 Pantoprazole Sodium Iv 40 Mg Vial IV PUSH 40 mg Q12HR HEIDE Administration Perflutren Lipid Microsphere 0 ml 09/09/24 20:23 Perflutren Lipid Microspheres 1.5 Ml Vial Diluted To 10 Ml Total Volume IV PUSH 09/12/24 20:23 ONCE PRN adequate visualization Protocol Potassium Chloride 20 meq 09/09/24 17:00 09/11/24 09:26 Potassium Chloride 20 Meq Er Tablet PO 20 meq BID HEIDE Administration Prednisone 40 mg 09/11/24 08:00 09/11/24 09:26 Prednisone 20 Mg Tablet PO 40 mg DAILY@0800 HEIDE Administration Sertraline HCl 200 mg 09/10/24 09:00 09/11/24 09:25 Sertraline Hcl 50 Mg Tablet PO 200 mg DAILY HEIDE Administration Sodium Chloride 6 ml 09/11/24 05:00 09/11/24 05:45 Sodium Chlor 3% 15 Ml Neb (Respiratory Therapy) INHALATION 09/13/24 05:01 6 ml DAILY@0500 HEIDE Administration Sodium Chloride 6 ml 09/11/24 05:00 Sodium Chlor 3% 15 Ml Neb (Respiratory Therapy) INHALATION 09/13/24 05:01 DAILY@0500 [facility] Radiology Results: ITS Impressions Chest X-Ray 09/11/24 16:03 Impression: 1: Cardiomegaly with pulmonary edema. 2: Small right pleural effusion. 3: No pneumothorax post procedure. Thoracentesis Ultrasound 09/11/24 16:16 IMPRESSION: 1. Successful ultrasound-guided thoracentesis yielding 250 mL of reddish fluid. Labs Labs: Laboratory Results - last 24 hr 09/11/24 09/11/24 09/11/24 06:44 14:31 14:45 PT 15.0 H INR 1.2 Pleural Fluid Source Pleural fluid Pleural Color Brown Pleural Appearance Cloudy Pleural pH > 7.500 H Pleural RBC TNP Pleural Nuc Cells TNP Hospitalist MIPS Advance Care Plan I have confirmed that the patient's Advanced Care Plan is present, code status is documented, or surrogate decision maker is listed in patient medical record.: Yes Medication Reconciliation I have utilized all available resources to obtain, update and review the patients current medications (includes all prescriptions, OTC, herbals, cannabis, and nutritional supplements).: Yes
[2024-09-11] MEDS: ALPRAZolam (*CRX) 0.5 MG TABLET 1 MG PO (20:34)
[2024-09-11] MEDS: HYDROcodone/acetaminophen (*CRX) 5-325 MG TABLET 1 TAB PO (20:34)
[2024-09-11] MEDS: ATORVASTATIN 10 MG TABLET PO (20:34)
[2024-09-11] MEDS: cefTRIAXone 2 GM/NS 100 ML 2 GM/100 ML BAG IVPB (20:35)
[2024-09-12] VITALS (24 sets, daily range): BP systolic 126–150; BP diastolic 46–92; PULSE 89–126; RESP 16–31; TEMP 36.2–36.9; O2SAT 92–99
[2024-09-12] MEDS: LEVALBUTEROL NEB 1.25 MG/3 ML INHALATION ×4 (01:58→20:32)
[2024-09-12] MEDS: IPRATROPIUM BR 0.02% INH SOLN 0.5 MG/2.5 ML VIAL INHALATION ×4 (01:58→20:32)
[2024-09-12 05:01] LABS: Hematocrit 30.7 % (37.0-47.0); Mean Corpuscular HGB Conc 29.3 g/dl (32-36); Mean Corpuscular Hemoglobin 26.7 pg (26-34); Mean Corpuscular Volume 91.1 fl (80-100); Mean Platelet Volume 9.3 fl (7.4-10.4); Platelet Count Result 205 k/mm3 (150-375); Red Blood Count 3.37 M/mm3 (4.2-5.4); Red Cell Distribution Width 16.6 % (11.5-14.5); White Blood Count 8.3 K/mm3 (4.5-10.0)
[2024-09-12 05:10] LABS: Alanine Aminotransferase 10 U/L (6-35); Albumin Level 3.8 g/dL (3.5-5.1); Alkaline Phosphatase 75 U/L (38-126); Anion Gap 9 mmol/L (4-12); Aspartate Amino Transferase 19 U/L (14-36); Bilirubin,Total 0.3 mg/dL (0.2-1.3); Blood Urea Nitrogen 17 mg/dL (7-17); Calcium 9.3 mg/dL (8.4-10.2); Carbon Dioxide 25 mmol/L (22-30); Chloride 104 mmol/L (98-107); Estimated CRCL calculation 49 ml/min; Estimated Glomerular Filt Rate > 60; Glucose 153 mg/dL (65-110); Potassium 4.4 mmol/L (3.4-5.0); Sodium 138 mmol/L (137-145)
[2024-09-12 05:18] LABS: NT Pro B Type Natriuretic Pept 3660 pg/mL (19.9-100)
[2024-09-12] MEDS: SODIUM CHLOR 3% 15 ML NEB (RESPIRATORY THERAPY) 6 ML INHALATION (05:43)
--- NOTE | 2024-09-12 05:52 | PCRCNOTE ---
pt was unable to submit a sputum sample
[2024-09-12] MEDS: guaiFENesin 12 HR 600 MG TABCR 1200 MG PO ×2 (08:02→20:19)
[2024-09-12] MEDS: dilTIAZem HCL CD 180 MG CAP.24HR 360 MG PO (08:02)
[2024-09-12] MEDS: SERTRALINE HCL 50 MG TABLET 200 MG PO (08:02)
[2024-09-12] MEDS: FUROSEMIDE INJ 40 MG/4 ML VIAL IV PUSH (08:03)
[2024-09-12] MEDS: COLESTIPOL HCL 1 GM TABLET 2 GM PO (08:03)
[2024-09-12] MEDS: PANTOPRAZOLE SODIUM IV 40 MG VIAL IV PUSH ×2 (08:03→20:20)
[2024-09-12] MEDS: predniSONE 20 MG TABLET 40 MG PO (08:03)
[2024-09-12] MEDS: POTASSIUM CHLORIDE 20 MEQ ER TABLET PO ×2 (08:03→16:02)
[2024-09-12] MEDS: DOXYCYCLINE 100 MG/NS 100 ML 100 MG/100 ML BAG IVPB (08:22)
--- NOTE | 2024-09-12 09:05 | P.PNIM_ITS ---
Progress Note: A&P Assessment and Plan (1) COPD exacerbation: Code(s): J44.1 - Chronic obstructive pulmonary disease with (acute) exacerbation Status: Acute Assessment and Plan: Previous history of pleural effusion which indicated transudative Baseline 6-8 L at rest Continue DuoNeb q.4 hours Started ceftriaxone and doxycycline Comorbid conditions CHF Patient denies smoking and KAREEM Came from ED with BiPAP but currently on HFNC Pending medication reconciliation from pharmacy Pulmonology consulted CT Chest:Small bilateral pleural effusions with interstitial pulmonary edema. Stable right breast implant versus less likely mass. Correlate with prior history. Stable T8 compression fracture. (2) SOB (shortness of breath): Code(s): R06.02 - Shortness of breath Status: Acute Assessment and Plan: as mentioned above (3) Anxiety: Code(s): F41.9 - Anxiety disorder, unspecified Status: Acute Assessment and Plan: Continue Xanax 1 mg p.o. q.h.s. (4) Hypertension: Qualifiers: Hypertension type: primary hypertension Qualified Code(s): I10 - Essential (primary) hypertension Code(s): I10 - Essential (primary) hypertension Status: Chronic Assessment and Plan: Diltiazem 360 mg p.o. q.d. (5) CHF (congestive heart failure): Code(s): I50.9 - Heart failure, unspecified Status: Acute Assessment and Plan: Echo performed on March 2024 showing right to left shunt by positive agitated saline study, normal LV size and systolic fxn with EF 50-55%, dilated RV with preserved systolic function and moderate , moderate AI and mild MR. In Mar 2023, EF 60-65%, Grade II diastolic dysfunction, akinetic basal inferior wall and moderate , moderate MR and mild pulmonary HTN. Moderate has worsened with ESTRELLITA 1.5 -> 1.1cm2 now. Repeat ECHO Start Lasix 40 mg IV BID Cardiology consulted (6) Chronic anticoagulation: Code(s): Z79.01 - assisted (current) use of anticoagulants Status: Acute Assessment and Plan: Holding Eliquis and clopidogrel for thoracentesis (7) NESTOR (mycobacterium avium-intracellulare): Code(s): A31.0 - Pulmonary mycobacterial infection Status: Acute Assessment and Plan: 1 sputum with NESTOR and 3 negative sputums. Follows up with the pulmonology as outpatient (8) Anemia: Code(s): D64.9 - Anemia, unspecified Status: Chronic Assessment and Plan: Order PPI b.i.d. Received 1 unit PRBC Monitor H&H FOBT positive Holding Eliquis and Plavix GI consulted (9) Pleural effusion: Code(s): J90 - Pleural effusion, not elsewhere classified Status: Acute Assessment and Plan: Ordered thoracentesis Order Lasix 40 mg IV b.i.d. Plan Holding anticoagulation due to possible GI bleed Ordered SCD Subjective Date/time seen: 09/12/24 09:05 Interval history: Patient reports that currently she is doing well after the thoracentesis. Pending EGD. Will resume the anticoagulation after the EGD. Review of Systems Review of Systems: All systems reviewed & are unremarkable except as noted in HPI and below Exam Narrative: General appearance: Well-developed, well-nourished Skin: Normal color Head: Normocephalic, nontraumatic Eyes: Clear conjunctiva ENT: Oropharynx normal, ears normal, nose normal Neck: Supple, nontender Chest and respiratory: Airway patent, [place] of air entry bilaterally, no wheezing, no rhonchi, no basilar rales slight labored breathing Heart: Regular rate/rhythm Abdomen: Soft, nontender, no organomegaly, quiet bowel sounds, guaiac stool positive for blood Vascular: Normal peripheral pulses, normal capillary refill. Musculoskeletal: Normal range of motion, nontender back Neurologic: Alert and oriented ?3, [employer] is normal as tested, no gross motor deficit Objective Data Vital Signs Vital Signs: Vital Signs - 24 hr 09/11/24 09:15 09/11/24 10:00 09/11/24 12:00 Temperature 98.3 F Pulse Rate 109 H 109 H 119 H Respiratory Rate 20 28 H Blood Pressure 147/82 H Pulse Oximetry 92 Oxygen Delivery Oxygen Flow Rate 09/11/24 12:00 09/11/24 12:00 09/11/24 14:00 Temperature Pulse Rate 119 H 113 H 121 H Respiratory Rate 28 H Blood Pressure Pulse Oximetry 92 Oxygen Delivery High Flow Nasal Cannula Oxygen Flow Rate 4 09/11/24 15:02 09/11/24 15:57 09/11/24 16:00 Temperature 98.2 F Pulse Rate 99 129 H 129 H Respiratory Rate 20 20 20 Blood Pressure 118/88 Pulse Oximetry 99 99 Oxygen Delivery High Flow Nasal Cannula Oxygen Flow Rate 4 09/11/24 16:00 09/11/24 19:56 09/11/24 20:00 Temperature 98.1 F Pulse Rate 126 H 123 H 119 H Respiratory Rate 22 H Blood Pressure 136/58 L Pulse Oximetry 90 90 Oxygen Delivery Nasal Cannula Oxygen Flow Rate 4 09/11/24 20:00 09/11/24 20:51 09/11/24 20:52 Temperature Pulse Rate 139 H 119 H Respiratory Rate 20 Blood Pressure Pulse Oximetry 90 Oxygen Delivery High Flow Nasal Cannula Oxygen Flow Rate 4 09/11/24 21:06 09/12/24 00:00 09/12/24 00:11 Temperature 97.8 F Pulse Rate 114 H 109 H 126 H Respiratory Rate 20 20 Blood Pressure 140/68 Pulse Oximetry 95 Oxygen Delivery Oxygen Flow Rate 09/12/24 02:00 09/12/24 02:17 09/12/24 04:00 Temperature Pulse Rate 109 H 106 H 101 H Respiratory Rate 18 18 Blood Pressure Pulse Oximetry Oxygen Delivery Oxygen Flow Rate 09/12/24 05:43 09/12/24 05:51 09/12/24 07:38 Temperature Pulse Rate 96 102 H Respiratory Rate 18 18 Blood Pressure Pulse Oximetry 95 Oxygen Delivery High Flow Nasal Cannula Oxygen Flow Rate 7 09/12/24 07:38 09/12/24 07:49 09/12/24 08:00 Temperature 98.4 F Pulse Rate 101 H 100 89 Respiratory Rate 20 20 24 H Blood Pressure 134/46 L Pulse Oximetry 99 Oxygen Delivery Oxygen Flow Rate Intake/Output Intake/Output: Intake & Output 09/09/24 09/10/24 09/11/24 09/12/24 23:59 23:59 23:59 23:59 Intake Total 550 2143.0 990 240 Output Total 400 1200 400 Balance 550 1743.0 -210 -160 Meds/Results Medications: Active Medications Generic Name Dose Route Start Last Admin Trade Name Freq PRN Reason Stop Dose Admin Acetaminophen 650 mg 09/09/24 15:42 09/11/24 12:35 Acetaminophen 325 Mg Tablet PO 650 mg Q4H PRN Administration Mild Pain (1-3) or Fever Hydrocodone Bitart/Acetaminophen 1 tab 09/09/24 20:00 09/11/24 20:34 Hydrocodone/Acetaminophen (*Crx) 5-325 Mg Tablet PO 1 tab Q6H PRN Administration pain 4-6 Albuterol 2 puff 09/09/24 20:00 09/11/24 04:40 Albuterol Sulfate (*Sp) Aerosol 1 Puff INHALATION 2 puff Q4HRT PRN Administration Shortness Of Breath Or Wheezing Alprazolam 1 mg 09/09/24 21:00 09/11/24 20:34 Alprazolam (*Crx) 0.5 Mg Tablet PO 1 mg QHS HEIDE Administration Atorvastatin Calcium 10 mg 09/09/24 21:00 09/11/24 20:34 Atorvastatin 10 Mg Tablet PO 10 mg HS HEIDE Administration Colestipol HCl 2 gm 09/10/24 09:00 09/12/24 08:03 Colestipol Hcl 1 Gm Tablet PO 2 gm DAILY HEIDE Administration Diltiazem HCl 360 mg 09/10/24 09:00 09/12/24 08:02 Diltiazem Hcl Cd 180 Mg Cap.24hr PO 360 mg DAILY HEIDE Administration Furosemide 40 mg 09/11/24 09:00 09/12/24 08:03 Furosemide Inj 40 Mg/4 Ml Vial IV PUSH 40 mg DAILY HEIDE Administration Guaifenesin 1,200 mg 09/11/24 10:10 09/12/24 08:02 Guaifenesin 12 Hr 600 Mg Tabcr PO 1,200 mg Q12HR HEIDE Administration Ceftriaxone Sodium 2 gm in 100 mls @ 200 mls/hr 09/09/24 20:00 09/11/24 20:35 Rocephin 2 Gm/Ns 100 Ml IVPB 100 mls/hr Q24H HEIDE Administration Doxycycline Hyclate 100 mg in 100 mls @ 100 mls/hr 09/09/24 21:00 09/12/24 08:22 Vibramycin 100 Mg/Ns 100 Ml IVPB 100 mls/hr Q12HR HEIDE Administration Ipratropium [place] 0.5 mg 09/10/24 20:00 09/12/24 07:38 Ipratropium Br 0.02% Inh Soln 0.5 Mg/2.5 Ml Vial INHALATION 0.5 mg Q6HRT HEIDE Administration Levalbuterol HCl 1.25 mg 09/11/24 14:00 09/12/24 07:38 Levalbuterol Neb 1.25 Mg/3 Ml INHALATION 1.25 mg Q6HRT HEIDE Administration Pantoprazole Sodium 40 mg 09/09/24 21:00 09/12/24 08:03 Pantoprazole Sodium Iv 40 Mg Vial IV PUSH 40 mg Q12HR HEIDE Administration Perflutren Lipid Microsphere 0 ml 09/09/24 20:23 Perflutren Lipid Microspheres 1.5 Ml Vial Diluted To 10 Ml Total Volume IV PUSH 09/12/24 20:23 ONCE PRN adequate visualization Protocol Potassium Chloride 20 meq 09/09/24 17:00 09/12/24 08:03 Potassium Chloride 20 Meq Er Tablet PO 20 meq BID HEIDE Administration Prednisone 40 mg 09/11/24 08:00 09/12/24 08:03 Prednisone 20 Mg Tablet PO 40 mg DAILY@0800 HEIDE Administration Sertraline HCl 200 mg 09/10/24 09:00 09/12/24 08:02 Sertraline Hcl 50 Mg Tablet PO 200 mg DAILY HEIDE Administration Sodium Chloride 6 ml 09/11/24 05:00 09/12/24 05:43 Sodium Chlor 3% 15 Ml Neb (Respiratory Therapy) INHALATION 09/13/24 05:01 6 ml DAILY@0500 HEIDE Administration Sodium Chloride 6 ml 09/11/24 05:00 09/11/24 21:00 Sodium Chlor 3% 15 Ml Neb (Respiratory Therapy) INHALATION 09/13/24 05:01 Not Given DAILY@0500 COUNTS INCLUDE 234 BEDS AT [facility] Radiology Results: ITS Impressions Thoracentesis Ultrasound 09/11/24 16:16 IMPRESSION: 1. Successful ultrasound-guided thoracentesis yielding 250 mL of reddish fluid. Chest X-Ray 09/12/24 08:38 Impression: 1: Cardiomegaly with chronic interstitial edema. Labs Labs: Laboratory Results - last 24 hr 09/11/24 09/11/24 09/12/24 14:31 14:45 04:02 WBC 8.3 RBC 3.37 L Hgb 9.0 L Hct 30.7 L MCV 91.1 MCH 26.7 MCHC 29.3 L RDW 16.6 H Plt Count 205 MPV 9.3 Sodium 138 Potassium 4.4 Chloride 104 Carbon Dioxide 25 Anion Gap 9 BUN 17 Creatinine 0.79 Estim Creat Clear Calc 49 Estimated GFR > 60 Glucose 153 H Calcium 9.3 Total Bilirubin 0.3 AST 19 ALT 10 Alkaline Phosphatase 75 NT-Pro-B Natriuret Pep 3660 H Total Protein 7.0 Albumin 3.8 Pleural Fluid Source Pleural fluid Pleural Color Brown Pleural Appearance Cloudy Pleural pH > 7.500 H Pleural RBC TNP Pleural Nuc Cells TNP Hospitalist MIPS Advance Care Plan I have confirmed that the patient's Advanced Care Plan is present, code status is documented, or surrogate decision maker is listed in patient medical record.: Yes Medication Reconciliation I have utilized all available resources to obtain, update and review the patients current medications (includes all prescriptions, OTC, herbals, cannabis, and nutritional supplements).: Yes
[2024-09-12 10:55] LABS: Lymphocytes Pleural Fluid 53 %; Macrophages Pleural Fluid 26 %; Monocytes Pleural Fluid 5 %; Neutrophils Pleural Fluid 16 % (0-25)
--- NOTE | 2024-09-12 11:32 | P.PNPL_ITS ---
Progress Note: A&P Assessment and Plan (1) COPD exacerbation: Code(s): J44.1 - Chronic obstructive pulmonary disease with (acute) exacerbation Status: Acute Assessment and Plan: Gold grade 2 group E COPD Patient with 82.5 pack year tobacco use, quit 10/06/2022.? Alpha 1 anti trypsin genotype MM.? 07/17/2021: FEV1 is 1.25 L, 62% predicted, FEV1: FVC ratio 59%, no hyperinflation, DLCO moderately decreased at 40% and remains moderately decreased when adjusted for alveolar volume.? CT scan of the chest on 07/20/2022 shows stable pulmonary nodules with moderate apical predominant centrilobular emphysema.? She has used oxygen with exertion for about 2 years and 01/2023 admission she has been on oxygen around the clock.? Currently using 4 L nasal cannula At rest, 4-5 L with activity and 6 L at night. 01/26/23 - echo: EF 65- 70%, mildly increased LV wall thickness, LV diastolic function indeterminate, mild aortic valve stenosis area 1.7, mild-mod aortic and tricuspid valve regurgitation, mild pulm HTN with RVSP 44mmHg. echo 03/22/2023 with moderate aortic stenosis with a valve area of 1.5. Echocardiogram 03/15/2024 with moderate aortic stenosis with a valve area of 1.1, moderate aortic regurgitation. RVSP 50, positive right to left bubble. currently with 2 days worsening cough, wheezing, change in phlegm production. Plan: I will treat her for COPD exacerbation. Patient has been placed on Solu- Medrol, day 2. I will continue prednisone 40 mg p.o. q.day. Patient with AFib and will discontinue beta agonists and continue ipratropium nebulizers q.6 hours. Continue ceftriaxone and doxycycline, both day 2. Goal saturation 90 to 94%. Adjust oxygen accordingly. 09/11/2024: Patient tells me she is still short of breath at rest and with activity. Overall she is breathing about the same as when she was admitted. She has a cough that is dry with no phlegm and no hemoptysis. She is afebrile. When I enter the room she was on 8 L nasal cannula saturation 98%. I decreased her to 6 L nasal cannula her saturations were 92%. She is scheduled for right thoracentesis later today. Plan: patient is on prednisone 40, day 3. Continue ceftriaxone and doxycycline, both day 3. Patient has some wheezing on ipratropium nebulizers q.6 hours and I will add levalbuterol 1.25 q.6 hours today. Difficulty expectorating and I will add guaifenesin 1200 mg p.o. b.i.d. 09/12/2024: Patient tells me that she felt she was breathing better after the thoracentesis yesterday. Overall she feels her breathing is much better but she is tired and fatigued. She says she is breathing normally at rest. She denies cough, phlegm or hemoptysis. Patient was on 4 L nasal cannula saturations 90%. White blood cell count 8.3, creatinine 0.79. Patient is afebrile. BNP 3660. Chest x-ray today shows no reaccumulation of the left pleural effusion, small right pleural effusion with congestion. Yesterday she diuresed 310 mL. Cumulative she is positive 1.8 L since admission. Weight today is 73.5 kg. She is on Lasix 40 IV q.day. Plan: Continue prednisone 40 p.o. q.day, day 4. Continue ceftriaxone and doxycycline, both day 4. She had no wheezing today. Continue ipratropium and levalbuterol nebulizers q.6 hours. Continue guaifenesin. Hospitalist will consider increasing dose of Lasix for congestion on chest x-ray and increased BNP. Currently she is on 40 Lasix IV q.day would recommend 40 IV b.i.d.. Discussed with Dr. Jama. Will follow with you. (2) Acute on chronic hypoxic respiratory failure: Code(s): J96.21 - Acute and chronic respiratory failure with hypoxia Status: Acute Assessment and Plan: Patient with a history of COPD, bilateral pleural effusion with compressive atelectasis, fluid overload, positive bubble study with [id number] shunt after 4-5 beats without Valsalva and after 2 beats with Valsalva with bubbles appearing to come from the pulmonary vein rather than through the atrial septum. Anemia with guaiac-positive stools. 09/05/2024: home O2 assessment requires 4 L at rest, 8 L with activity and she has been using 8 L at night. 09/10/24: Plan: Will treat for COPD exacerbation as above. agree with as aggressive diuresis as tolerated by her cardiac and renal systems per Cardiology and hospitalist teams. Currently on Lasix 40 mg IV q.day. diltiazem 360 q.day to control rate. Agree with thoracentesis with full set of chemistries, cell count, microbiology studies, and cytology. Of note, She had a right thoracentesis on 03/19 with removal of 300 mL of kenneth fluid (transudative, noninfected, macrophage predominant, cytology negative effusion). patient with anemia, guaiac-positive stools on Eliquis and Plavix. Continue Protonix. Patient has declined EGD. GI following. 09/11/2024: Slowly improved oxygen requirements. She did not require BiPAP last night. Plan: Continue to treat for COPD exacerbation. Scheduled for right thoracentesis later today. Later in the day had a left thoracentesis as this was a larger pleural effusion by ultrasound. 250 mL of red fluid removed. PH greater than 7.50. G stain not performed in house. The tube was clotted so no cell counts were performed. Cultures are pending, chemistries are pending and cytology pending. 09/12/2024: Improving oxygen requirements. Currently on 4 L. plan: Goal saturation 90-94%, wean as tolerated. (3) NESTOR (mycobacterium avium-intracellulare): Code(s): A31.0 - Pulmonary mycobacterial infection Status: Acute Assessment and Plan: 03/12/2024 through 03/22/2024: Patient admitted to [facility] with COPD exacerbation, fluid overload and pneumonia. A sputum on 03/18/24 positive for acid-fast bacilli. I called the lab to request sensitivities once this is identified. QuantiFERON GOLD was negative. 03/12/2024: CT angiogram of the chest with no pulmonary embolism mediastinal lymphadenopathy, nodule right middle lobe 7 mm nodule right apical area 1 cm, large bilateral pleural effusions. Increased interstitial thickening in the apical areas right greater than left, no bronchiectasis recommend follow-up in 6 months. ? 04/06/2024:? Patient had 2 days of cough, fatigue, lethargy, SOB, cough with yellow to green phlegm and I treated with levofloxacin 750 q.day x7 days. 04/30/2024: Sputum from 03/18/2024 has grown out NESTOR.? Sensitivities obtained 08/06/2024. 04/30/2024: Sputum from 03/18/2024 has grown out mycobacterium avium intracellulare. ?08/06/24: Sensitivities AMIKACIN:? 16 S mcg/mL ? AMIKACIN (LIPOSOMAL, INHALED):? 16 S mcg/mL ? CIPROFLOXACIN:? >8 mcg/mL ? CLARITHROMYCIN: ?2 S mcg/mL ? CLOFAZIMINE:? 0.25 mcg/mL??? DOXYCYCLINE:? >8 mcg/mL ? LINEZOLID:? 32 R mcg/mL ? MINOCYCLINE:? >8 mcg/mL??? MOXIFLOXACIN:? 4 R mcg/mL ? RIFAMPIN:? >4 mcg/mL ? RIFABUTIN:? 0.5 mcg/mL ? STREPTOMYCIN:? >32 This is a corrected result. ? A prior result that was reported as final has been changed. ? 1. Mycobacterium avium-intracellu ? M.I.C.??? RX?--------- --- ?Rifampin AFB? >4?S ?Amikacin AFB? 16?S ?Moxifloxacin AFB? R? 06/11/2024:? I called our lab to check on the drug sensitivities to NESTOR, and despite me calling on 03/18/24 to get sensitivities these were not started at [facility] until we called back on 06/11/2024.? Additional sputum for AFB on 03/19/2024, 06/10/2024 and 06/11/2024 are smear negative and culture negative at 6 weeks. 08/20/24: Patient has no fever, chills, rigors, chronic phlegm production. She has 1 sputum with NESTOR and 3 negative sputums. Plan: I will order 3 additional sputums for AFB. I will order CT scan of the chest. Sputum for AFB from 08/28/2024, 08/29/2024 and 08/30/2024 smear negative and cultures negative to date. CT scan ordered. CT chest on 09/06/24: Compared with 03/12/2024 bilateral pleural effusions are much less and now very small right and minimal left. Improved bilateral mild interstitial infiltrates without bronchiectasis. Improved right middle lobe nodule. Will follow the patient clinically. 09/10/24: Plan: I will attempt to obtain 3 additional AFB sputums in order to check for 2nd specimen that would have NESTOR and if so she would either be colonized or infected. If she grows out a 2nd specimen with NESTOR [place] refer [place] [facility]. 09/11/2024: Saline induced sputum was attempted this morning for AFB and the patient did receive this treatment, she coughed but could reduce no phlegm. Will try again tomorrow. 09/12/24: saline induced sputum again attempted but patient did not produce phlegm. Subjective Date/time seen: 09/12/24 11:32 Interval history: 09/10/2024: This is a new pulmonary consult for COPD. 78-year-old with a history of gold grade 2 group B COPD, hypoxemic respiratory failure on 4 L at rest and 8 L with activity and 8 L at night, NESTOR in 1 sputum (3 additional negative sputums), and congestive heart failure, atrial fibrillation, right transudative pleural effusion. patient is followed in the Pulmonary Clinic in last seen on 08/20/2024. this is a copy of the note She has no hospitalizations since 03/22/2024. She was treated by her PCP with Levaquin in July and took this for 7 days and this helped clear her congestion. Currently the patient is telling me she is having a good day. She has no rest short of breath. Her cough and phlegm production are at her baseline. Patient is currently taking Stiolto Respimat at 1 puff twice a day, she increased weight from 160-165 and she increased her Lasix from 40 p.o. b.i.d. to t.i.d., she takes rescue albuterol 1 time a week. The patient is wearing 6-8 L when she sits and her saturations are 91-95%. She is using 8 L at night. She is using 8 L when she walks with physical therapy in her apartment and her saturations go down to 81-85%. Currently the patient was on 6 L with saturations 94%. When the patient stood up for 2 minutes her saturations were 93%. I walked her to the door and back which is what she says she walks at home and her saturations remain 90. she has atrial fibrillation and her pulse oximeter sometimes has difficulty picking up accurate information. She is asymptomatic with these low saturations with activity. The patient denies any fever, chills, rigors or weight loss. Her weight today is 160. She is not smoking or exposed to secondhand smoke. Her CAT score today is 31. Plan: regarding her COPD I continued Stiolto Respimat, rescue albuterol ordered a home O2 assessment, CT scan of the chest. regarding her hypoxemia I ordered a home O2 assessment and she required 4 L at rest and 8 L with activity. Regarding her NESTOR she had 1 positive sputum on 03/18 with negative sputum on 03/19, 3 2 and 3 3. I ordered 3 additional sputums and all are smear negative cultures are pending CT scan of the chest on 09/06/2024 showed improved bilateral pleural effusions, immune improved interstitial infiltrates and improved right middle lobe nodule since 03/12/2024. 09/09/2024 patient presented to the emergency room with 1-2 days history worsening shortness of breath, wheezing, cough, change in phlegm from clear to brown with no fever. She had worsening dyspnea on exertion with no swelling. White blood cell count was 10.8, her creatinine is 0.84, her BNP was 2600, her troponins were negative x3. Her chest x-ray showed congestion with right greater than left pleural effusion. Patient was initially treated with Solu- Medrol, bronchodilators, ceftriaxone, doxycycline, Lasix IV and BiPAP. She refused blood gas. Her hemoglobin was 6.7 and she received 2 units of packed red blood cells. 09/10/2024: Today the patient tells me that she is breathing normally when she talks, she has increased phlegm production which remains brown, her wheezing is better. She is currently on 8 L nasal cannula saturations 92%. Her white blood cell count is 7.1, creatinine is 0.71, her BNP is 1880. She is cumulative positive 397 since admission. Her weight today is 74.2 with an admission weight of 75.4. She has declined EGD. 09/11/2024: Patient tells me she is still short of breath at rest and with activity. Overall she is breathing about the same as when she was admitted. She has a cough that is dry with no phlegm and no hemoptysis. She is afebrile. When I enter the room she was on 8 L nasal cannula saturation 98%. I decreased her to 6 L nasal cannula her saturations were 92%. She is scheduled for right thoracentesis later today. Later in the day had a left thoracentesis as this was a larger pleural effusion by ultrasound. 250 mL of red fluid removed. PH greater than 7.50. G stain not performed in house. The tube was clotted so no cell counts were performed. Cultures are pending, chemistries are pending and cytology pending. 09/12/2024: Patient tells me that she felt she was breathing better after the thoracentesis yesterday. Overall she feels her breathing is much better but she is tired and fatigued. She says she is breathing normally at rest. She denies cough, phlegm or hemoptysis. Patient was on 4 L nasal cannula saturations 90%. White blood cell count 8.3, creatinine 0.79. Patient is afebrile. BNP 3660. Chest x-ray today shows no reaccumulation of the left pleural effusion, small right pleural effusion with congestion. Yesterday she diuresed 310 mL. Cumulative she is positive 1.8 L since admission. Weight today is 73.5 kg. She is on Lasix 40 IV P q.day DATA 09/06/24: CT Scan of the Chest without Contrast: Clinical Indication: COPD Technique: Contiguous sections were acquired throughout the chest without intravenous contrast. Dose reduction technique was used on this scan by utilizing automated exposure control and iterative reconstruction technique. The dose-length product (DLP) was 169.98 mGy-cm. COMPARISON: 04-03 Findings: There is no evidence of any significant mediastinal, hilar or axillary lymphadenopathy. There are extensive atherosclerotic calcifications of the aorta and coronary arteries. No pericardial effusion. Small bilateral pleural effusions are present. There is diffuse interstitial edema. Images through the upper abdomen reveal no abnormalities. Right-sided breast implant versus ovoid mass is stable from prior exam. Stable T8 compression fracture. Impression: Small bilateral pleural effusions with interstitial pulmonary edema. Stable right breast implant versus less likely mass. Correlate with prior history. Stable T8 compression fracture. Compared with 03/12/2024 bilateral pleural effusions are much less and now very small right and minimal left. Improved bilateral mild interstitial infiltrates without bronchiectasis. Improved right middle lobe nodule. Will follow the patient clinically. 09/05/24: Home O2 assessment: Rest room air saturation 77%. Rest nasal cannula 2 L saturation 85%. Rest nasal cannula 4 L saturation 90%. Exercise 4 L nasal cannula saturation 85%. Exercise nasal cannula 6 L saturation 87%. Exercise 7 L nasal cannula saturation 88%. Exercise 8 L nasal cannula saturation 90%. Patient requires 4 L at rest and 8 with activity. Sputum for AFB from 08/28/2024, 08/29/2024 and 08/30/2024 is pending. 06/11/2024: Sputum AFB smear negative, culture negative at 6 weeks 06/10/2024:? Sputum AFB smear negative, culture negative at 6 weeks 04/30/2024: Sputum from 03/18/2024 has grown out mycobacterium avium intracellulare. ?08/06/24: Sensitivities AMIKACIN:? 16 S mcg/mL ? AMIKACIN (LIPOSOMAL, INHALED):? 16 S mcg/mL ? CIPROFLOXACIN:? >8 mcg/mL ? CLARITHROMYCIN: ?2 S mcg/mL ? CLOFAZIMINE:? 0.25 mcg/mL??? DOXYCYCLINE:? >8 mcg/mL ? LINEZOLID:? 32 R mcg/mL ? MINOCYCLINE:? >8 mcg/mL??? MOXIFLOXACIN:? 4 R mcg/mL ? RIFAMPIN:? >4 mcg/mL ? RIFABUTIN:? 0.5 mcg/mL ? STREPTOMYCIN:? >32 This is a corrected result. ? A prior result that was reported as final has been changed. ? 1. Mycobacterium avium-intracellu ? M.I.C.??? RX?--------- --- ?Rifampin AFB? >4?S ?Amikacin AFB? 16?S ?Moxifloxacin AFB? R? 03/19/2024: Sputum smear negative for AFB and culture negative at 6 weeks. 03/19/24: Pleural fluid: 300 mL of kenneth fluid removed. G stain was many white blood cells, no organisms seen. PH greater than 7.50, white blood cell count 2109 with a differential neutrophils 17%, lymphocytes 32%, macrophages 38%, mesothelial cells 13%. she says her breathing immediately improved with the thoracentesis. Pleural LDH 184/ serum LDH 363= 0.51 . pleural total protein 3.0/ serum total protein 7.0 equals 0.43. serum albumin 4.1, pleural albumin 2.0, gradient 2.1. Pleural glucose 110, pleural cholesterol 33. Pleural cytology negative for malignancy. anaerobic culture negative. Fungal stain and culture negative. AFB smear and culture negative. This pleural effusion is a transudative, noninfected, macrophage predominant, cytology negative effusion., 11/04/2023: Polysomnogram Periodic Limb Movements The patient had 87 isolated limb movements with an index of 14.1. The patient had 215 periodic limb movements with an index of 34.9, which is elevated (normal <15). Patient had a total of 302 limb movements with a total limb movement index of 49.0. Assessment and plan: (1) Nocturnal hypoxemia: The patient had an overall AHI of 2.1 with desaturation down to 77%. This is not consistent with sleep-disordered breathing. The patient had persistent hypoxemia in the absence of respiratory events. Supplemental oxygen was started at 1 lpm of O2 and titrated to 3.5 lpm of O2. The patient oxygen saturation was unable to remain above 90% on the final oxygen settings. I recommend that the patient use 4 lpm of supplemental oxygen with sleep. I recommend that she have a nocturnal oximetry done 2 weeks after implementing the recommended oxygen settings to ensure that her oxygen saturation remains above 90%. (2) PLMD (periodic limb movement disorder): The patient had a significant number of limb movements during the study with the majority being periodic in nature. Approximately 25% of the periodic limb movements caused arousals during sleep. The patient's sleep history does not suggest Restless Leg Syndrome. I recommend that the patient have a serum ferritin drawn for evaluation of iron deficiency anemia. If the patient has a serum ferritin less than 75 ng/mL, I recommend starting a daily iron supplement and a Vitamin C supplement for better absorption. If the serum ferritin is greater than 75 ng/mL, I recommend starting a dopamine agonist and titrating the dose until symptoms resolve. There are nonpharmacological methods to treat limb movements including daily exercise, stretching calf muscles before bed, avoiding excessive amounts of caffeine and alcohol, vitamin B supplementation, magnesium lotion massaged into legs before bed, and use of a weighted blanket. I will order ferritin blood test. 10/25/2023: Overnight oximetry on 6 L nasal cannula. The family was present for this test and confirmed the patient was on 6 L, and that she wore the 6 L all night. Recording duration 9 hours and 57 minutes. Basal saturation 94.6%. High saturation 99%. Low saturation 82%. Time with saturation less than or equal to 88% was 2 minutes and 26 seconds. Oxygen desaturation index was 7. I will continue 6 L nasal cannula at night. 07/06/2023 ([place] [facility] [place]):? Overnight oximetry on 5 L nasal cannula.? Recording duration 9 hours and 35 minutes.? Basal saturation 86.6%.? High saturation 98%.? Low saturation 65%.? Time with saturation less than or equal to 88% was 4 hours and 28 minutes.? Oxygen desaturation index is 20. unsure if patient was wearing oxygen and at what level, repeat ordered on 5 L 05/13/2023: Home O2 assessment:? Rest room air saturation 86%.? Rest nasal cannula 1 L saturation 88%.? Rest nasal cannula 2 L saturation 90%.? Exercise nasal cannula 2 L saturation 88%.? Exercise nasal cannula 3 L saturation 90%. ?Requires 2 L with rest and 3 with activity 03/12/30 EXAMINATION: XR chest 1V portable ??INDICATION: Pleural effusions. ??COMPARISON: Chest single view 04/08/2023, chest CT 03/30/2023 ??FINDINGS: There is a diffuse interstitial pattern in the lungs. There are airspace opacities in right mid and lower lung zones and left lower lung zone. There are small pleural effusions. No pneumothorax. Cardiomegaly is noted. ??IMPRESSION: ??1. Stable diffuse lung disease, consistent with pulmonary edema versus pneumonia. ??2. Stable small pleural effusions. ??3. Cardiomegaly. ?03/23/23: EXAMINATION: CTA chest PE protocol ??DATE: 03/23/2023 14:04 ??INDICATION: SOB ??COMPARISON: 07/20/2022 ??FINDINGS: The pulmonary arteries are well-opacified. No pulmonary embolism is identified. There are moderate-sized right and small left pleural effusions. There is complete left upper lobe collapse due to mucous plugging. There is also complete atelectasis of the right middle lobe. There is intralobular septal thickening with groundglass opacity with a right lung predominance. There is dependent atelectasis of the left lower lobe. There is a right breast implant. There is mild bilateral hilar and mediastinal lymphadenopathy, likely reactive. No pneumothorax is identified. Punctate calcifications in an otherwise normal spleen likely represent healed granulomatous disease. Changes of cholecystectomy are noted. There is moderate thoracic spondylosis. A chronic T8 compression fracture is noted. ??IMPRESSION: ??1. No pulmonary embolus. ??2. Left upper lobe collapse related to mucous plugging ??3. Complete atelectasis of the right middle lobe. ??4. Moderate size right and small left pleural effusions. ??5. Findings consistent with asymmetric edema of the right upper lobe. ?03/30/[address] Mild pulmonary edema. ??2. Mild atelectasis in the lungs with interval improvement. ??3. Moderate emphysema. ??4. Small pleural effusions. ?03/22/23 Echo Summary ??? 1. Complete two-dimensional, color flow and Doppler transthoracic ??echocardiogram is performed. ??? 2. Severe pulmonary artery enlargement. ??? 3. Left ventricular chamber dimension is normal. ??? 4. Left ventricular systolic function is normal, estimated at 60-65%. ??? 5. There is mildly increased left ventricular wall thickness. ??? 6. The left ventricular diastolic function is grade II diastolic ??dysfunction. ??? 7. The basal inferior wall is akinetic. ??? 8. Left atrial chamber dimension is moderately enlarged. ??? 9. Right atrial chamber dimension is mildly enlarged. ??? 10. Right ventricular chamber dimension is mildly enlarged. ??? 11. There is moderate aortic valve stenosis with a peak velocity of 224 ??cm/s, mean gradient of 11 mmHg, and aortic valve area of 1.5 cm2. ??? 12. There is moderate aortic valve regurgitation. ??? 13. There is moderate aortic valve calcification. ?? 14. The mitral valve annulus is mildly calcified. ??? 15. There is moderate mitral valve regurgitation. ??? 16. There is mild tricuspid valve regurgitation. ??? 17. Mild pulmonary hypertension, estimated pulmonary arterial systolic ??pressure is 43 mmHg. ??? 18. There is mild pulmonic regurgitation. ??Right Ventricle ??? Right ventricular chamber dimension is mildly enlarged. ??? Right ventricular systolic function is normal. ??Right Atria ??? Right atrial chamber dimension is mildly enlarged. ?? * 03/17/23 CXR compared to 01/24 CXR with intervall progression of bilateral airspace disease which may represent edema and/or pneumonia. ??document embedded image ??* 01/26/23 - echo: EF 65-70%, mildly increased LV wall thickness, LV diastolic function indeterminate, mild aortic valve stenosis, mild-mod aortic and tricuspid valve regurgitation, mild pulmHTN RVSP 44mmHg. ??* 07/20/[address] - Stable pulmonary nodules, likely benign. Moderate em physema. ??Moderate obstructive airway disease by PFT in July of 2021, severely lung diffusion capacity. ??* 12/16/21 Home O2 Eval - need for 2L O2 with activity, none at rest. ??* 01/26/22: Overnight oximetry - 324 min spent below 88% saturation. ? ?07/17/2021 PFTs ?The test was performed and results interpreted in accordance with the 2019 and 2005 ATS/ERS Task Force guidelines respectively using the Global Lung Function Initiative-2012 reference equations. Patient demonstrated good effort and cooperation. Reproducibility criteria were met. The quality of the spirometry maneuver was Grade A.? Of note the patient had persistent coughing throughout the test. ?Findings: ?Spirometry:? There is decreased maximal expiratory airflow at all lung volumes with a concave expiratory flow tracing.? The contour the inspiratory flow tracing is normal.? The FVC is 2.13 L, 81% predicted.? The FEV1 is 1.25 L, 62% predicted.? The FEV1:? FVC ratio is 59%. ?Plethysmography:? The total lung capacity is 5.70 L, 112% predicted.? The functional residual capacity is 4.32 L, 148% predicted.? The residual volume is 3.04 L, 130% predicted.? ?Diffusing capacity:? The diffusing capacity unadjusted for hemoglobin and carboxyhemoglobin is 8.0, 40% predicted.? The diffusing capacity adjusted for alveolar volume is 2.26, 54% predicted. ?Impression: There is a moderate obstructive abnormality. Hyperinflation is present is demonstrated by the increase in functional residual capacity and is consistent with an obstructive abnormality. The diffusing capacity unadjusted for hemoglobin is moderately decreased and normalizes when adjusted for alveolar volume. ?There are no prior studies for comparison ? ??* 05/25/22 : Overnight oximetry on 2.5L O2 - 13min spent below 88% but looks likely artifact. She continued 2.5L. ??* 07/26/20 - Chest CT:? mild to moderate emphysema. 6 mm right middle lobe nodule along a band of linear discoid atelectasis/scarring. ??* Alpha 1 MM normal.Alpha 1 PIMM normal Review of Systems Constitutional: Constitutional: Reports no additional constitutional complaints Eyes: Eyes: Reports no additional eye complaints ENT: Reports system reviewed and no additional complaints, except as documented Cardiovascular: Cardiovascular: Reports no additional cardiovascular comp laints Respiratory: Respiratory: Reports no additional respiratory complaints Gastrointestinal: Gastrointestinal: Reports no additional gastrointestinal complaints Musculoskeletal: Musculoskeletal: Reports no additional musculoskeletal co mplaints Neurologic: Reports system reviewed and no additional complaints, except as documented Psychiatric: Psychiatric: Reports no additional psychiatric complaints Endocrine: Endocrine: Reports no additional endocrine complaints Hematologic/Lymphatic: Hematologic/Lymphatic: Reports no additional hematologic/lymphatic complaints Allergic/Immunologic: Allergic/Immunologic: Reports no additional allergic/immunologic complaints Exam Const: General: cooperative, healthy appearing and comfortable Orientation/consciousness: oriented to person, oriented to place and oriented to time HENMT: Head: normal to inspection Ears: hearing grossly normal bilaterally Eyes: General: appearance normal, both eyes and all related structures Neck: Neck: normal visual inspection Chest: Chest palpation & inspection: normal inspection of the chest Resp: Effort & Inspection: normal respiratory effort and able to speak in complete sentences Auscultation: crackles, no rales, no rhonchi, wheezes and diminished lung sounds Other: Few scattered expiratory wheezes, Diminished at the bases. Cardio: Jugular venous distension: no JVD GI: Inspection: normal to inspection Skin: General skin exam: normal color Neuro: General: oriented to person, oriented to place and oriented to time Extrem: General: normal to inspection and edema Psych: Appearance: grossly normal Objective Data Vital Signs Vital Signs: Vital Signs - 24 hr 09/11/24 12:00 09/11/24 12:00 09/11/24 12:00 Temperature 36.8 C Pulse Rate 119 H 119 H 113 H Respiratory Rate 28 H 28 H Blood Pressure 147/82 H Pulse Oximetry 92 92 Oxygen Delivery High Flow Nasal Cannula Oxygen Flow Rate 4 09/11/24 14:00 09/11/24 15:02 09/11/24 15:57 Temperature 36.8 C Pulse Rate 121 H 99 129 H Respiratory Rate 20 20 Blood Pressure 118/88 Pulse Oximetry 99 Oxygen Delivery Oxygen Flow Rate 09/11/24 16:00 09/11/24 16:00 09/11/24 19:56 Temperature 36.7 C Pulse Rate 129 H 126 H 123 H Respiratory Rate 20 22 H Blood Pressure 136/58 L Pulse Oximetry 99 90 Oxygen Delivery High Flow Nasal Cannula Oxygen Flow Rate 4 09/11/24 20:00 09/11/24 20:00 09/11/24 20:51 Temperature Pulse Rate 119 H 139 H Respiratory Rate Blood Pressure Pulse Oximetry 90 90 Oxygen Delivery Nasal Cannula High Flow Nasal Cannula Oxygen Flow Rate 4 4 09/11/24 20:52 09/11/24 21:06 09/12/24 00:00 Temperature Pulse Rate 119 H 114 H 109 H Respiratory Rate 20 20 Blood Pressure Pulse Oximetry Oxygen Delivery Oxygen Flow Rate 09/12/24 00:11 09/12/24 02:00 09/12/24 02:17 Temperature 36.6 C Pulse Rate 126 H 109 H 106 H Respiratory Rate 20 18 18 Blood Pressure 140/68 Pulse Oximetry 95 Oxygen Delivery Oxygen Flow Rate 09/12/24 04:00 09/12/24 05:43 09/12/24 05:51 Temperature Pulse Rate 101 H 96 102 H Respiratory Rate 18 18 Blood Pressure Pulse Oximetry Oxygen Delivery Oxygen Flow Rate 09/12/24 07:38 09/12/24 07:38 09/12/24 07:49 Temperature Pulse Rate 101 H 100 Respiratory Rate 20 20 Blood Pressure Pulse Oximetry 95 Oxygen Delivery High Flow Nasal Cannula Oxygen Flow Rate 7 09/12/24 08:00 Temperature 36.9 C Pulse Rate 89 Respiratory Rate 24 H Blood Pressure 134/46 L Pulse Oximetry 99 Oxygen Delivery Oxygen Flow Rate Intake/Output Intake/Output: Intake & Output 09/09/24 09/10/24 09/11/24 09/12/24 23:59 23:59 23:59 23:59 Intake Total 550 2143.0 990 240 Output Total 400 1200 400 Balance 550 1743.0 -210 -160 Meds/Results Medications: Active Medications Generic Name Dose Route Start Last Admin Trade Name Freq PRN Reason Stop Dose Admin Acetaminophen 650 mg 09/09/24 15:42 09/11/24 12:35 Acetaminophen 325 Mg Tablet PO 650 mg Q4H PRN Administration Mild Pain (1-3) or Fever Hydrocodone Bitart/Acetaminophen 1 tab 09/09/24 20:00 09/11/24 20:34 Hydrocodone/Acetaminophen (*Crx) 5-325 Mg Tablet PO 1 tab Q6H PRN Administration pain 4-6 Albuterol 2 puff 09/09/24 20:00 09/11/24 04:40 Albuterol Sulfate (*Sp) Aerosol 1 Puff INHALATION 2 puff Q4HRT PRN Administration Shortness Of Breath Or Wheezing Alprazolam 1 mg 09/09/24 21:00 09/11/24 20:34 Alprazolam (*Crx) 0.5 Mg Tablet PO 1 mg QHS HEIDE Administration Amoxicillin/Clavulanate Potassium 1 tablet 09/12/24 21:00 Amoxicillin/Clavulanate K 875-125 Mg Tab PO 09/16/24 09:01 Q12HR HEIDE Atorvastatin Calcium 10 mg 09/09/24 21:00 09/11/24 20:34 Atorvastatin 10 Mg Tablet PO 10 mg HS HEIDE Administration Colestipol HCl 2 gm 09/10/24 09:00 09/12/24 08:03 Colestipol Hcl 1 Gm Tablet PO 2 gm DAILY HEIDE Administration Diltiazem HCl 360 mg 09/10/24 09:00 09/12/24 08:02 Diltiazem Hcl Cd 180 Mg Cap.24hr PO 360 mg DAILY HEIDE Administration Doxycycline Hyclate 100 mg 09/12/24 21:00 Doxycycline Hyclate 100 Mg Tablet PO 09/14/24 09:01 Q12HR HEIDE Furosemide 40 mg 09/11/24 09:00 09/12/24 08:03 Furosemide Inj 40 Mg/4 Ml Vial IV PUSH 40 mg DAILY HEIDE Administration Guaifenesin 1,200 mg 09/11/24 10:10 09/12/24 08:02 Guaifenesin 12 Hr 600 Mg Tabcr PO 1,200 mg Q12HR HEIDE Administration Ipratropium [place] 0.5 mg 09/10/24 20:00 09/12/24 07:38 Ipratropium Br 0.02% Inh Soln 0.5 Mg/2.5 Ml Vial INHALATION 0.5 mg Q6HRT HEIDE Administration Levalbuterol HCl 1.25 mg 09/11/24 14:00 09/12/24 07:38 Levalbuterol Neb 1.25 Mg/3 Ml INHALATION 1.25 mg Q6HRT HEIDE Administration Pantoprazole Sodium 40 mg 09/09/24 21:00 09/12/24 08:03 Pantoprazole Sodium Iv 40 Mg Vial IV PUSH 40 mg Q12HR HEIDE Administration Perflutren Lipid Microsphere 0 ml 09/09/24 20:23 Perflutren Lipid Microspheres 1.5 Ml Vial Diluted To 10 Ml Total Volume IV PUSH 09/12/24 20:23 ONCE PRN adequate visualization Protocol Potassium Chloride 20 meq 09/09/24 17:00 09/12/24 08:03 Potassium Chloride 20 Meq Er Tablet PO 20 meq BID HEIDE Administration Prednisone 40 mg 09/11/24 08:00 09/12/24 08:03 Prednisone 20 Mg Tablet PO 40 mg DAILY@0800 HEIDE Administration Sertraline HCl 200 mg 09/10/24 09:00 09/12/24 08:02 Sertraline Hcl 50 Mg Tablet PO 200 mg DAILY HEIDE Administration Sodium Chloride 6 ml 09/11/24 05:00 09/12/24 05:43 Sodium Chlor 3% 15 Ml Neb (Respiratory Therapy) INHALATION 09/13/24 05:01 6 ml DAILY@0500 HEIDE Administration Sodium Chloride 6 ml 09/11/24 05:00 09/11/24 21:00 Sodium Chlor 3% 15 Ml Neb (Respiratory Therapy) INHALATION 09/13/24 05:01 Not Given DAILY@0500 [facility] Radiology Results: ITS Impressions Thoracentesis Ultrasound 09/11/24 16:16 IMPRESSION: 1. Successful ultrasound-guided thoracentesis yielding 250 mL of reddish fluid. Chest X-Ray 09/12/24 08:38 Impression: 1: Cardiomegaly with chronic interstitial edema. Labs Labs: Laboratory Results - last 24 hr 09/11/24 09/11/24 09/12/24 14:31 14:45 04:02 WBC 8.3 RBC 3.37 L Hgb 9.0 L Hct 30.7 L MCV 91.1 MCH 26.7 MCHC 29.3 L RDW 16.6 H Plt Count 205 MPV 9.3 Sodium 138 Potassium 4.4 Chloride 104 Carbon Dioxide 25 Anion Gap 9 BUN 17 Creatinine 0.79 Estim Creat Clear Calc 49 Estimated GFR > 60 Glucose 153 H Calcium 9.3 Total Bilirubin 0.3 AST 19 ALT 10 Alkaline Phosphatase 75 NT-Pro-B Natriuret Pep 3660 H Total Protein 7.0 Albumin 3.8 Pleural Fluid Source Pleural fluid Pleural Color Brown Pleural Appearance Cloudy Pleural pH > 7.500 H Pleural RBC TNP Pleural Nuc Cells TNP Pleural Neutrophils 16 Pleural Lymphocytes 53 Pleural Monocytes 5 Pleural Macrophages 26
--- NOTE | 2024-09-12 14:24 | PC.NURSE ---
Addendum entered by Mary Baldwin RN 09/12/24 14:26: This note is to be timed for 1405 Original Note: To GI Lab per jono. Report given to LENORA Cardoso
[2024-09-12] MEDS: LACTATED RINGERS 1,000 ML 150 ML IV CONT (14:36)
--- NOTE | 2024-09-12 14:36 | WPDANESEPPF ---
Anes - Initial Pre Proc Eval Procedure: Operation Date: 09/12/24 15:30 Proposed Procedures p Esophagogastroduodenoscopy - Martin Bejarano MD Date/Time: 09/12/24 14:36 Surgeon: Judson Mckeon MD Pre Op Diagnosis: gi bleed,anemia,copd exacerbation,chf,afib with rv Patient Data Age: 78 Gender: F Height: 1.63 m Weight: 73.5 kg Last Vital Signs Temp 36.8 C 09/12/24 14:30 Pulse 110 H 09/12/24 14:30 Resp 18 09/12/24 14:30 BP 144/88 H 09/12/24 14:30 Pulse Ox 93 09/12/24 14:30 O2 Del Method Nasal Cannula 09/12/24 14:30 O2 Flow Rate 6 09/12/24 14:30 FiO2 35 09/09/24 20:04 Allergies Allergy/AdvReac Type Severity Reaction Status Date / Time steroids AdvReac Mild Confusion Uncoded 09/12/24 14:25 Home Medications ?Medication ?Instructions ?Recorded ?Confirmed ?Type apixaban 5 mg tablet (Eliquis) 5 mg PO BID 08/07/20 09/09/24 History clopidogrel 75 mg tablet 75 mg PO DAILY 02/03/23 09/09/24 History diltiazem HCl 240 mg 360 mg PO DAILY 10/05/23 09/09/24 History capsule,extended release 24 hr sertraline 100 mg tablet 200 mg (2 x 100 mg) PO DAILY #180 11/14/23 09/09/24 Rx tabs albuterol sulfate 90 mcg/actuation 2 puff inhalation Q4H PRN 12/01/23 09/09/24 History aerosol inhaler Shortness Of Breath Or Wheezing atorvastatin 10 mg tablet 10 mg PO HS 03/12/24 09/09/24 History colestipol 1 gram tablet 2 g PO DAILY 03/12/24 09/09/24 History ipratropium 0.5 mg-albuterol 3 mg 3 ml inhalation Q4H PRN shortness 06/29/24 09/09/24 Rx (2.5 mg base)/3 mL nebulization of breath or wheezing #180 mL soln alprazolam 1 mg tablet (Xanax) 1 mg PO QHS #90 tabs 08/24/24 09/09/24 Rx furosemide 40 mg tablet 20 mg PO DAILY 09/09/24 09/09/24 History hydrocodone 5 mg-acetaminophen 325 1 tablet PO Q6H PRN pain 09/09/24 09/09/24 History mg tablet Laboratory Tests 09/11/24 09/11/24 09/12/24 14:31 14:45 04:02 WBC 8.3 K/mm3 (4.5-10.0) RBC 3.37 L M/mm3 (4.2-5.4) Hgb 9.0 L g/dL (12.0-15.0) Hct 30.7 L % (37.0-47.0) MCV 91.1 fl (80-100) MCH 26.7 pg (26-34) MCHC 29.3 L g/dl (32-36) RDW 16.6 H % (11.5-14.5) Plt Count 205 k/mm3 (150-375) MPV 9.3 fl (7.4-10.4) Sodium 138 mmol/L (137-145) Potassium 4.4 mmol/L (3.4-5.0) Chloride 104 mmol/L (98-107) Carbon Dioxide 25 mmol/L (22-30) Anion Gap 9 mmol/L (4-12) BUN 17 mg/dL (7-17) Creatinine 0.79 mg/dL (0.7-1.0) Estim Creat Clear Calc 49 ml/min Estimated GFR > 60 (59 - ) Glucose 153 H mg/dL (65-110) Calcium 9.3 mg/dL (8.4-10.2) Total Bilirubin 0.3 mg/dL (0.2-1.3) AST 19 U/L (14-36) ALT 10 U/L (6-35) Alkaline Phosphatase 75 U/L (38-126) NT-Pro-B Natriuret Pep 3660 H pg/mL (19.9-100) Total Protein 7.0 g/dL (6.3-8.2) Albumin 3.8 g/dL (3.5-5.1) Pleural Fluid Source Pleural fluid Pleural Color Brown (Colorless) Pleural Appearance Cloudy (Clear) Pleural pH > 7.500 H (7.210-7.500) Pleural RBC TNP Pleural Nuc Cells TNP Pleural Neutrophils 16 % (0-25) Pleural Lymphocytes 53 % Pleural Monocytes 5 % Pleural Macrophages 26 % Pleural Albumin Pending Pleural LDH Pending Pleural Glucose Pending Pleural Amylase Pending Patient hx anesthesia problems: none Family hx anesthesia problems: none Results Review: All pre-operative results and documents have been reviewed as part of the pre-operative evaluation. COUNT INCLUDES [facility] Past Medical History Medical History Minimal cognitive impairment Diarrhea Abdominal bloating Trochanteric fracture Chronic anticoagulation Chronic kidney disease, stage 3 Hyperlipidemia Hypertension Paroxysmal atrial fibrillation Compression fracture of body of thoracic vertebra Anxiety Surgical History Surgical History History of back surgery History of partial colectomy History of cardiac catheterization History of coronary artery stent placement History of hysterectomy History of cholecystectomy History of appendectomy History of tonsillectomy Family History Family History Father Patient's father is Family history of emphysema Mother Patient's mother is Family history of chronic obstructive pulmonary disease Other Heart disease Heart failure Social History Social History Smoking packs per day: 1.5 Smoking cigarettes per day: 30.0 Years smoked: 55 Smoking pack-years: 82.50 Smoking status: Former smoker Tobacco type: cigarettes Second hand tobacco smoke exposure: No Smoking end date: 01/09/23 Alcohol intake: never Drinks per week: 0 Substance use: never Substance use type: does not use Do You Feel Safe in your Home?: Yes Lack of Transportation: No Lack of Food: Never True Current Housing: I Have Housing Concerned About Future Housing: No Difficulty Paying Gas/Electric Bills: No Difficulty Paying for Meds: No Currently Unemployed: No Education: Decline to Answer Difficulty w/ Childcare or Family Care: No Living arrangements: assisted living Additional living arrangements comments: currently living at [facility] in [place] Occupation/Education: retired Spiritual care concerns: No Anes - Eval Final PreProcedure Day of Procedure 09/12/24 14:36 Patient weight: overweight Heart: irregular rhythm Lungs: clear to auscultation Airway: Mallampati scale class II and special considerations poor dentition Neurological: alert and oriented Last oral intake: >/= 8 hours ASA classification: IV Emergent: no Anesthetic plan: proceed Anesthesia type and monitoring: general GIVS and standard monitoring Results Review: All pre-operative results and documents have been reviewed as part of the pre-operative evaluation. Informed Consent: The patient's anesthetic plan and its attendant risks and benefits were discussed with the patient/family/POA. Questions were solicited and answers provided to the satisfaction of the patient/family/POA.
--- NOTE | 2024-09-12 15:10 | S_PTH ---
PATIENT: Maria Dolores Henry LOC: [id number] U#:[id number] AGE/SX: 78/F ROOM: 330 RE09/10/[address]: Leon Jama MD : 1945 BED: 02 DIS: 09/13/2024 SPEC #: [id number] RECD: 09/13/24 07:55 STATUS: TORSTEN JOANA #: [id number] LUZ: 09/12/24 15:[address]: Martin Bejarano DEPT: [facility] Surgical RECD BY: Ledy zAul ENTERED: 09/13/24 07:55 SP TYPE: Surgical OTHR DR: MD Adis Mcclain DO MD Judson Adler MD Michael J. Walter, MD Tissues: A - Gastric Biopsy B - Gastric Biopsy Procedures: Hematoxylin and Eosin Stain Gross and Microscopic Level 4
--- NOTE | 2024-09-12 15:16 | P.CONGI_ITS ---
Assessment and Plan Assessment and plan (1) Anemia: Code(s): D64.9 - Anemia, unspecified Status: Acute Assessment and Plan: Given the patient's multiple medical problems and non-erosive gastritis without evidence of neoplasm or ulcers on EGD, further investigation for her nonspecific anemia is not recommended at this time. Intravenous iron infusion would be a viable alternative for maintenance. GI Consult Note Consult date/time: 09/12/24 15:16 HPI: Maria Dolores Henry is a 78 year old female Admitted on September 09, for exacerbation of shortness of breath. The patient has multiple medical problems including CHF, COPD, atrial fibrillation. reason for the consultation: Anemia, having a hemoglobin of 6.9, receiving transfusion. She had a normal colonoscopy in 2019, and our service is asked to do an EGD to investigate anemia. There are no recent iron studies in the chart. Review of Systems 2 Review of Systems: All systems reviewed & are unremarkable except as noted in HPI and below PMFSH Past Medical History Medical History Minimal cognitive impairment Diarrhea Abdominal bloating Trochanteric fracture Chronic anticoagulation Chronic kidney disease, stage 3 Hyperlipidemia Hypertension Paroxysmal atrial fibrillation Compression fracture of body of thoracic vertebra Anxiety Surgical History Surgical History History of back surgery History of partial colectomy History of cardiac catheterization History of coronary artery stent placement History of hysterectomy History of cholecystectomy History of appendectomy History of tonsillectomy Family History Family History Father Patient's father is Family history of emphysema Mother Patient's mother is Family history of chronic obstructive pulmonary disease Other Heart disease Heart failure Social History Social History Smoking packs per day: 1.5 Smoking cigarettes per day: 30.0 Years smoked: 55 Smoking pack-years: 82.50 Smoking status: Former smoker Tobacco type: cigarettes Second hand tobacco smoke exposure: No Smoking end date: 01/09/23 Alcohol intake: never Drinks per week: 0 Substance use: never Substance use type: does not use Do You Feel Safe in your Home?: Yes Lack of Transportation: No Lack of Food: Never True Current Housing: I Have Housing Concerned About Future Housing: No Difficulty Paying Gas/Electric Bills: No Difficulty Paying for Meds: No Currently Unemployed: No Education: Decline to Answer Difficulty w/ Childcare or Family Care: No Living arrangements: assisted living Additional living arrangements comments: currently living at [facility] in [place] Occupation/Education: retired Spiritual care concerns: No Meds Home Medications and Allergies Home Medications ?Medication ?Instructions ?Recorded ?Confirmed ?Type apixaban 5 mg tablet (Eliquis) 5 mg PO BID 08/07/20 09/09/24 History clopidogrel 75 mg tablet 75 mg PO DAILY 02/03/23 09/09/24 History diltiazem HCl 240 mg 360 mg PO DAILY 10/05/23 09/09/24 History capsule,extended release 24 hr sertraline 100 mg tablet 200 mg (2 x 100 mg) PO DAILY #180 11/14/23 09/09/24 Rx tabs albuterol sulfate 90 mcg/actuation 2 puff inhalation Q4H PRN 12/01/23 09/09/24 History aerosol inhaler Shortness Of Breath Or Wheezing atorvastatin 10 mg tablet 10 mg PO HS 03/12/24 09/09/24 History colestipol 1 gram tablet 2 g PO DAILY 03/12/24 09/09/24 History ipratropium 0.5 mg-albuterol 3 mg 3 ml inhalation Q4H PRN shortness 06/29/24 09/09/24 Rx (2.5 mg base)/3 mL nebulization of breath or wheezing #180 mL soln alprazolam 1 mg tablet (Xanax) 1 mg PO QHS #90 tabs 08/24/24 09/09/24 Rx furosemide 40 mg tablet 20 mg PO DAILY 09/09/24 09/09/24 History hydrocodone 5 mg-acetaminophen 325 1 tablet PO Q6H PRN pain 09/09/24 09/09/24 History mg tablet Allergies Allergy/AdvReac Type Severity Reaction Status Date / Time steroids AdvReac Mild Confusion Uncoded 09/12/24 14:25 Vital Signs Vital Signs - 24 hr 09/11/24 15:57 09/11/24 16:00 09/11/24 16:00 Temperature 98.2 F Pulse Rate 129 H 129 H 126 H Respiratory Rate 20 20 Blood Pressure 118/88 Pulse Oximetry 99 99 Oxygen Delivery High Flow Nasal Cannula Oxygen Flow Rate 4 09/11/24 19:56 09/11/24 20:00 09/11/24 20:00 Temperature 98.1 F Pulse Rate 123 H 119 H 139 H Respiratory Rate 22 H Blood Pressure 136/58 L Pulse Oximetry 90 90 Oxygen Delivery Nasal Cannula Oxygen Flow Rate 4 09/11/24 20:51 09/11/24 20:52 09/11/24 21:06 Temperature Pulse Rate 119 H 114 H Respiratory Rate 20 20 Blood Pressure Pulse Oximetry 90 Oxygen Delivery High Flow Nasal Cannula Oxygen Flow Rate 4 09/12/24 00:00 09/12/24 00:11 09/12/24 02:00 Temperature 97.8 F Pulse Rate 109 H 126 H 109 H Respiratory Rate 20 18 Blood Pressure 140/68 Pulse Oximetry 95 Oxygen Delivery Oxygen Flow Rate 09/12/24 02:17 09/12/24 04:00 09/12/24 05:43 Temperature Pulse Rate 106 H 101 H 96 Respiratory Rate 18 18 Blood Pressure Pulse Oximetry Oxygen Delivery Oxygen Flow Rate 09/12/24 05:51 09/12/24 07:38 09/12/24 07:38 Temperature Pulse Rate 102 H 101 H Respiratory Rate 18 20 Blood Pressure Pulse Oximetry 95 Oxygen Delivery High Flow Nasal Cannula Oxygen Flow Rate 7 09/12/24 07:49 09/12/24 08:00 09/12/24 08:00 Temperature 98.4 F Pulse Rate 100 89 89 Respiratory Rate 20 24 H 24 H Blood Pressure 134/46 L Pulse Oximetry 99 99 Oxygen Delivery Nasal Cannula Oxygen Flow Rate 4 09/12/24 08:00 09/12/24 11:39 09/12/24 12:00 Temperature 98 F Pulse Rate 107 H 103 H Respiratory Rate 24 H Blood Pressure 126/65 Pulse Oximetry 92 93 Oxygen Delivery Nasal Cannula Oxygen Flow Rate 4 09/12/24 12:00 09/12/24 14:30 Temperature 98.2 F Pulse Rate 98 110 H Respiratory Rate 18 Blood Pressure 144/88 H Pulse Oximetry 93 Oxygen Delivery Nasal Cannula Oxygen Flow Rate 6 Exam 2 Const: General: cooperative, healthy appearing and comfortable O rientation/consciousness: oriented to person, oriented to place and oriented to time HENMT: Head: normal to inspection Ears: hearing grossly normal bilaterally Eyes: General: appearance normal, both eyes and all related structures Neck: Neck: normal visual inspection Chest: Chest palpation & inspection: normal inspection of the chest Resp: Effort & Inspection: normal respiratory effort and able to speak in complete sentences Auscultation: crackles, no rales, no rhonchi, wheezes and diminished lung sounds Other: Few scattered expiratory wheezes, Diminished at the bases. Cardio: Jugular venous distension: no JVD GI: Inspection: normal to inspection Skin: General skin exam: normal color Neuro: General: oriented to person, oriented to place and oriented to time Extrem: General: normal to inspection and edema Psych: Appearance: grossly normal Results Labs 09/12/24 04:02 09/12/24 04:02 Labs: Short CBC 09/12/24 Range/Units 04:02 WBC 8.3 (4.5-10.0) K/mm3 Hgb 9.0 L (12.0-15.0) g/dL Hct 30.7 L (37.0-47.0) % Plt Count 205 (150-375) k/mm3 BMP 09/12/24 04:02 Sodium 138 Potassium 4.4 Chloride 104 Carbon Dioxide 25 BUN 17 Creatinine 0.79 Glucose 153 H Calcium 9.3 Liver Function 09/12/24 Range/Units 04:02 Total Bilirubin 0.3 (0.2-1.3) mg/dL AST 19 (14-36) U/L ALT 10 (6-35) U/L Alkaline Phosphatase 75 (38-126) U/L Albumin 3.8 (3.5-5.1) g/dL
--- NOTE | 2024-09-12 15:50 | PC.NURSE ---
Returned from GI Lab. Report received from [Lucina Friend @ [phone]].
[2024-09-12] MEDS: DOXYCYCLINE HYCLATE 100 MG TABLET PO (20:20)
[2024-09-12] MEDS: AMOXICILLIN/CLAVULANATE K 875-125 MG TAB 1 TABLET PO (20:20)
[2024-09-12] MEDS: HYDROcodone/acetaminophen (*CRX) 5-325 MG TABLET 1 TAB PO (20:20)
[2024-09-12] MEDS: ALPRAZolam (*CRX) 0.5 MG TABLET 1 MG PO (20:20)
[2024-09-12] MEDS: ATORVASTATIN 10 MG TABLET PO (20:20)
[2024-09-13] VITALS (21 sets, daily range): BP systolic 100–125; BP diastolic 63–65; PULSE 64–124; RESP 13–20; TEMP 36.4–36.6; O2SAT 85–95
[2024-09-13] MEDS: LEVALBUTEROL NEB 1.25 MG/3 ML INHALATION ×3 (02:00→14:31)
[2024-09-13] MEDS: IPRATROPIUM BR 0.02% INH SOLN 0.5 MG/2.5 ML VIAL INHALATION ×3 (02:00→14:31)
[2024-09-13] MEDS: SODIUM CHLOR 3% 15 ML NEB (RESPIRATORY THERAPY) 6 ML INHALATION (05:44)
[2024-09-13 06:41] LABS: Hematocrit 29.5 % (37.0-47.0); Hemoglobin 8.6 g/dL (12.0-15.0); Mean Corpuscular HGB Conc 29.2 g/dl (32-36); Mean Corpuscular Hemoglobin 26.9 pg (26-34); Mean Corpuscular Volume 92.2 fl (80-100); Mean Platelet Volume 9.2 fl (7.4-10.4); Platelet Count Result 186 k/mm3 (150-375); Red Cell Distribution Width 16.4 % (11.5-14.5); White Blood Count 7.9 K/mm3 (4.5-10.0)
[2024-09-13 07:07] LABS: Alanine Aminotransferase 10 U/L (6-35); Albumin Level 3.9 g/dL (3.5-5.1); Alkaline Phosphatase 74 U/L (38-126); Anion Gap 6 mmol/L (4-12); Aspartate Amino Transferase 18 U/L (14-36); Bilirubin,Total 0.4 mg/dL (0.2-1.3); Blood Urea Nitrogen 21 mg/dL (7-17); Calcium 9.4 mg/dL (8.4-10.2); Carbon Dioxide 29 mmol/L (22-30); Chloride 105 mmol/L (98-107); Estimated CRCL calculation 42 ml/min; Estimated Glomerular Filt Rate 59; Glucose 135 mg/dL (65-110); Potassium 4.7 mmol/L (3.4-5.0); Sodium 140 mmol/L (137-145); Total Protein 6.9 g/dL (6.3-8.2)
[2024-09-13] MEDS: POTASSIUM CHLORIDE 20 MEQ ER TABLET PO (09:30)
[2024-09-13] MEDS: predniSONE 20 MG TABLET 40 MG PO (09:30)
[2024-09-13] MEDS: AMOXICILLIN/CLAVULANATE K 875-125 MG TAB 1 TABLET PO (09:30)
[2024-09-13] MEDS: dilTIAZem HCL CD 180 MG CAP.24HR 360 MG PO (09:30)
[2024-09-13] MEDS: DOXYCYCLINE HYCLATE 100 MG TABLET PO (09:30)
[2024-09-13] MEDS: SERTRALINE HCL 50 MG TABLET 200 MG PO (09:30)
[2024-09-13] MEDS: FUROSEMIDE INJ 40 MG/4 ML VIAL IV PUSH (09:30)
[2024-09-13] MEDS: guaiFENesin 12 HR 600 MG TABCR 1200 MG PO (09:30)
[2024-09-13] MEDS: PANTOPRAZOLE SODIUM IV 40 MG VIAL IV PUSH (09:30)
--- NOTE | 2024-09-13 10:13 | WPDANESPN ---
Anes - Prog Note Post-Op Date/Time: 09/13/24 10:13 Cardiovascular status: normal Respiratory status: normal Airway patency: baseline Mental status: baseline Post-Op hydration status: normal Vital Signs: Last Vital Signs Temp 97.6 F 09/13/24 05:15 Pulse 94 09/13/24 05:58 Resp 20 09/13/24 05:58 BP 125/65 09/13/24 05:15 Pulse Ox 95 09/13/24 05:15 O2 Del Method Nasal Cannula 09/12/24 20:35 O2 Flow Rate 4 09/12/24 20:35 FiO2 35 09/12/24 20:00 Pain Score (VAS): 0/10 I/O: Intake & Output 09/12/24 09/13/24 09/13/24 23:59 07:59 15:59 Intake Total 840 100 240 Output Total 600 100 Balance 240 0 240 Laboratory Tests 09/13/24 06:20 09/13/24 06:20 09/11/24 09/13/24 14:31 06:20 WBC 7.9 RBC 3.20 L Hgb 8.6 L Hct 29.5 L MCV 92.2 MCH 26.9 MCHC 29.2 L RDW 16.4 H Plt Count 186 MPV 9.2 Sodium 140 Potassium 4.7 Chloride 105 Carbon Dioxide 29 Anion Gap 6 BUN 21 H Creatinine 0.92 Estim Creat Clear Calc 42 Estimated GFR 59 Glucose 135 H Calcium 9.4 Total Bilirubin 0.4 AST 18 ALT 10 Alkaline Phosphatase 74 Total Protein 6.9 Albumin 3.9 Pleural Neutrophils 16 Pleural Lymphocytes 53 Pleural Monocytes 5 Pleural Macrophages 26 Microbiology 09/11/24 14:45 Pleural Fluid Anaerobic Culture - Preliminary 09/11/24 14:45 Pleural Fluid Aerobic Culture - Preliminary Post-procedural complaints: none Patient Feedback: Patient satisfied with anesthetic care.
--- NOTE | 2024-09-13 10:45 | PM.PNPUL ---
Progress Note: A&P Assessment and Plan (1) COPD exacerbation: Code(s): J44.1 - Chronic obstructive pulmonary disease with (acute) exacerbation Status: Acute Assessment and Plan: Gold grade 2 group E COPD Patient with 82.5 pack year tobacco use, quit 10/06/2022.? Alpha 1 anti trypsin genotype MM.? 07/17/2021: FEV1 is 1.25 L, 62% predicted, FEV1: FVC ratio 59%, no hyperinflation, DLCO moderately decreased at 40% and remains moderately decreased when adjusted for alveolar volume.? CT scan of the chest on 07/20/2022 shows stable pulmonary nodules with moderate apical predominant centrilobular emphysema.? She has used oxygen with exertion for about 2 years and 01/2023 admission she has been on oxygen around the clock.? 09/05/24: Home O2 assessment: Patient requires 4 L at rest and 8 with activity. Wearing 8 L at night. 01/26/23 - echo: EF 65-70%, mildly increased LV wall thickness, LV diastolic function indeterminate, mild aortic valve stenosis area 1.7, mild-mod aortic and tricuspid valve regurgitation, mild pulm HTN with RVSP 44mmHg. echo 03/22/2023 with moderate aortic stenosis with a valve area of 1.5. Echocardiogram 03/15/2024 with moderate aortic stenosis with a valve area of 1.1, moderate aortic regurgitation. RVSP 50, positive right to left bubble. currently with 2 days worsening cough, wheezing, change in phlegm production. Plan: I will treat her for COPD exacerbation. Patient has been placed on Solu-Medrol, day 2. I will continue prednisone 40 mg p.o. q.day. Patient with AFib and will discontinue beta agonists and continue ipratropium nebulizers q.6 hours. Continue ceftriaxone and doxycycline, both day 2. Goal saturation 90 to 94%. Adjust oxygen accordingly. 09/11/2024: Patient tells me she is still short of breath at rest and with activity. Overall she is breathing about the same as when she was admitted. She has a cough that is dry with no phlegm and no hemoptysis. She is afebrile. When I enter the room she was on 8 L nasal cannula saturation 98%. I decreased her to 6 L nasal cannula her saturations were 92%. She is scheduled for right thoracentesis later today. Plan: patient is on prednisone 40, day 3. Continue ceftriaxone and doxycycline, both day 3. Patient has some wheezing on ipratropium nebulizers q.6 hours and I will add levalbuterol 1.25 q.6 hours today. Difficulty expectorating and I will add guaifenesin 1200 mg p.o. b.i.d. 09/12/2024: Patient tells me that she felt she was breathing better after the thoracentesis yesterday. Overall she feels her breathing is much better but she is tired and fatigued. She says she is breathing normally at rest. She denies cough, phlegm or hemoptysis. Patient was on 4 L nasal cannula saturations 90%. White blood cell count 8.3, creatinine 0.79. Patient is afebrile. BNP 3660. Chest x-ray today shows no reaccumulation of the left pleural effusion, small right pleural effusion with congestion. Yesterday she diuresed 310 mL. Cumulative she is positive 1.8 L since admission. Weight today is 73.5 kg. She is on Lasix 40 IV q.day. Plan: Continue prednisone 40 p.o. q.day, day 4. Continue ceftriaxone and doxycycline, both day 4. She had no wheezing today. Continue ipratropium and levalbuterol nebulizers q.6 hours. Continue guaifenesin. Hospitalist will consider increasing dose of Lasix for congestion on chest x-ray and increased BNP. Currently she is on 40 Lasix IV q.day would recommend 40 IV b.i.d.. 09/13/24: Patient tells me she is breathing normal in better than she has in the last 2 months. Her cough is normal with no phlegm and no hemoptysis. She is on 4 L nasal cannula saturation 94%. White blood cell count 7.9. Creatinine 0.92. her weight today is 73.9. Yesterday she was positive 300 mL and cumulative she is positive 2.3 L since admission. Patient tells me she is improved and ready for discharge. Plan: Patient has completed 5 days of prednisone today and have discontinued. She has received 4 days of ceftriaxone and this is been changed to Augmentin started on 09/12/2024. doxycycline changed to p.o.. Total antibiotics day 5. Continue ipratropium and levalbuterol nebulizers q.6 hours. Continue guaifenesin 1200 mg p.o. b.i.d.. From a pulmonary perspective patient is ready to be discharged on these pulmonary medications: Augmentin 875-125 b.i.d. times 3 days Doxycycline 100 mg p.o. b.i.d. x3 days Stiolto Respimat 2.5-2.5 at 1 puff q.day Rescue albuterol 2 puffs q.4 hours p.r.n. shortness of breath or wheezing DuoNebs q.4 hours p.r.n. shortness of breath or wheezing. Guaifenesin 600 mg p.o. b.i.d. p.r.n. congestion. Oxygen at rest and with activity per formal home O2 assessment Oxygen at night using the same level as prescribed with activity Diuretics per Cardiology and hospitalist team. Patient was previously on 40 p.o. b.i.d. and came in with fluid overload. Attempted to call daughter, Cristel, , left a voice message for her to call the clinic. Patient will call the clinic for any pulmonary issues. Discussed with Dr. Jama. Will sign off. Call with questions. (2) Acute on chronic hypoxic respiratory failure: Code(s): J96.21 - Acute and chronic respiratory failure with hypoxia Status: Acute Assessment and Plan: Patient with a history of COPD, bilateral pleural effusion with compressive atelectasis, fluid overload, positive bubble study with [id number] shunt after 4-5 beats without Valsalva and after 2 beats with Valsalva with bubbles appearing to come from the pulmonary vein rather than through the atrial septum. Anemia with guaiac-positive stools. 09/05/2024: home O2 assessment requires 4 L at rest, 8 L with activity and she has been using 8 L at night. 09/10/24: Plan: Will treat for COPD exacerbation as above. agree with as aggressive diuresis as tolerated by her cardiac and renal systems per Cardiology and hospitalist teams. Currently on Lasix 40 mg IV q.day. diltiazem 360 q.day to control rate. Agree with thoracentesis with full set of chemistries, cell count, microbiology studies, and cytology. Of note, She had a right thoracentesis on 03/19 with removal of 300 mL of kenneth fluid (transudative, noninfected, macrophage predominant, cytology negative effusion). patient with anemia, guaiac-positive stools on Eliquis and Plavix. Continue Protonix. Patient has declined EGD. GI following. 09/11/2024: Slowly improved oxygen requirements. She did not require BiPAP last night. Plan: Continue to treat for COPD exacerbation. Scheduled for right thoracentesis later today. Later in the day had a left thoracentesis as this was a larger pleural effusion by ultrasound. 250 mL of red fluid removed. PH greater than 7.50. G stain not performed in house. The tube was clotted so no cell counts were performed. Cultures are pending, chemistries are pending and cytology pending. 09/12/2024: Improving oxygen requirements. Currently on 4 L. plan: Goal saturation 90-94%, wean as tolerated. 09/13/24: Overall oxygen requirements have improved. Currently on 4 L with saturations 94%. Plan: Will perform home O2 assessment for oxygen requirements at rest and with activity. Will prescribe oxygen at night at the same level that she is prescribed with activity. (3) NESTOR (mycobacterium avium-intracellulare): Code(s): A31.0 - Pulmonary mycobacterial infection Status: Acute Assessment and Plan: 03/12/2024 through 03/22/2024: Patient admitted to [facility] with COPD exacerbation, fluid overload and pneumonia. A sputum on 03/18/24 positive for acid-fast bacilli. I called the lab to request sensitivities once this is identified. QuantiFERON GOLD was negative. 03/12/2024: CT angiogram of the chest with no pulmonary embolism mediastinal lymphadenopathy, nodule right middle lobe 7 mm nodule right apical area 1 cm, large bilateral pleural effusions. Increased interstitial thickening in the apical areas right greater than left, no bronchiectasis recommend follow-up in 6 months. ? 04/06/2024:? Patient had 2 days of cough, fatigue, lethargy, SOB, cough with yellow to green phlegm and I treated with levofloxacin 750 q.day x7 days. 04/30/2024: Sputum from 03/18/2024 has grown out NESTOR.? Sensitivities obtained 08/06/2024. 04/30/2024: Sputum from 03/18/2024 has grown out mycobacterium avium intracellulare. ?08/06/24: Sensitivities AMIKACIN:? 16 S mcg/mL ? AMIKACIN (LIPOSOMAL, INHALED):? 16 S mcg/mL ? CIPROFLOXACIN:? >8 mcg/mL ? CLARITHROMYCIN: ?2 S mcg/mL ? CLOFAZIMINE:? 0.25 mcg/mL??? DOXYCYCLINE:? >8 mcg/mL ? LINEZOLID:? 32 R mcg/mL ? MINOCYCLINE:? >8 mcg/mL??? MOXIFLOXACIN:? 4 R mcg/mL ? RIFAMPIN:? >4 mcg/mL ? RIFABUTIN:? 0.5 mcg/mL ? STREPTOMYCIN:? >32 This is a corrected result. ? A prior result that was reported as final has been changed. ? 1. Mycobacterium avium-intracellu ? M.I.C.??? RX?--------- --- ?Rifampin AFB? >4?S ?Amikacin AFB? 16?S ?Moxifloxacin AFB? R? 06/11/2024:? I called our lab to check on the drug sensitivities to NESTOR, and despite me calling on 03/18/24 to get sensitivities these were not started at [facility] until we called back on 06/11/2024.? Additional sputum for AFB on 03/19/2024, 06/10/2024 and 06/11/2024 are smear negative and culture negative at 6 weeks. 08/20/24: Patient has no fever, chills, rigors, chronic phlegm production. She has 1 sputum with NESTOR and 3 negative sputums. Plan: I will order 3 additional sputums for AFB. I will order CT scan of the chest. Sputum for AFB from 08/28/2024, 08/29/2024 and 08/30/2024 smear negative and cultures negative to date. CT scan ordered. CT chest on 09/06/24: Compared with 03/12/2024 bilateral pleural effusions are much less and now very small right and minimal left. Improved bilateral mild interstitial infiltrates without bronchiectasis. Improved right middle lobe nodule. Will follow the patient clinically. 09/10/24: Plan: I will attempt to obtain 3 additional AFB sputums in order to check for 2nd specimen that would have NESTOR and if so she would either be colonized or infected. If she grows out a 2nd specimen with NESTOR will refer to [facility]. 09/11/2024: Saline induced sputum was attempted this morning for AFB and the patient did receive this treatment, she coughed but could reduce no phlegm. Will try again tomorrow. 09/12/24: saline induced sputum again attempted but patient did not produce phlegm. 09/13/2024: Unable to produce sputum in the hospital for AFB. Will follow-up sputums from 08/28, 08/29 and 08/31. Subjective Date/time seen: 09/13/24 10:45 Interval history: 09/10/2024: This is a new pulmonary consult for COPD. 78-year-old with a history of gold grade 2 group B COPD, hypoxemic respiratory failure on 4 L at rest and 8 L with activity and 8 L at night, NESTOR in 1 sputum (3 additional negative sputums), and congestive heart failure, atrial fibrillation, right transudative pleural effusion. patient is followed in the Pulmonary Clinic in last seen on 08/20/2024. this is a copy of the note She has no hospitalizations since 03/22/2024. She was treated by her PCP with Levaquin in July and took this for 7 days and this helped clear her congestion. Currently the patient is telling me she is having a good day. She has no rest short of breath. Her cough and phlegm production are at her baseline. Patient is currently taking Stiolto Respimat at 1 puff twice a day, she increased weight from 160-165 and she increased her Lasix from 40 p.o. b.i.d. to t.i.d., she takes rescue albuterol 1 time a week. The patient is wearing 6-8 L when she sits and her saturations are 91-95%. She is using 8 L at night. She is using 8 L when she walks with physical therapy in her apartment and her saturations go down to 81-85%. Currently the patient was on 6 L with saturations 94%. When the patient stood up for 2 minutes her saturations were 93%. I walked her to the door and back which is what she says she walks at home and her saturations remain 90. she has atrial fibrillation and her pulse oximeter sometimes has difficulty picking up accurate information. She is asymptomatic with these low saturations with activity. The patient denies any fever, chills, rigors or weight loss. Her weight today is 160. She is not smoking or exposed to secondhand smoke. Her CAT score today is 31. Plan: regarding her COPD I continued Stiolto Respimat, rescue albuterol ordered a home O2 assessment, CT scan of the chest. regarding her hypoxemia I ordered a home O2 assessment and she required 4 L at rest and 8 L with activity. Regarding her NESTOR she had 1 positive sputum on 03/18 with negative sputum on 03/19, 3 2 and 3 3. I ordered 3 additional sputums and all are smear negative cultures are pending CT scan of the chest on 09/06/2024 showed improved bilateral pleural effusions, immune improved interstitial infiltrates and improved right middle lobe nodule since 03/12/2024. 09/09/2024 patient presented to the emergency room with 1-2 days history worsening shortness of breath, wheezing, cough, change in phlegm from clear to brown with no fever. She had worsening dyspnea on exertion with no swelling. White blood cell count was 10.8, her creatinine is 0.84, her BNP was 2600, her troponins were negative x3. Her chest x-ray showed congestion with right greater than left pleural effusion. Patient was initially treated with Solu-Medrol, bronchodilators, ceftriaxone, doxycycline, Lasix IV and BiPAP. She refused blood gas. Her hemoglobin was 6.7 and she received 2 units of packed red blood cells. 09/10/2024: Today the patient tells me that she is breathing normally when she talks, she has increased phlegm production which remains brown, her wheezing is better. She is currently on 8 L nasal cannula saturations 92%. Her white blood cell count is 7.1, creatinine is 0.71, her BNP is 1880. She is cumulative positive 397 since admission. Her weight today is 74.2 with an admission weight of 75.4. She has declined EGD. 09/11/2024: Patient tells me she is still short of breath at rest and with activity. Overall she is breathing about the same as when she was admitted. She has a cough that is dry with no phlegm and no hemoptysis. She is afebrile. When I enter the room she was on 8 L nasal cannula saturation 98%. I decreased her to 6 L nasal cannula her saturations were 92%. She is scheduled for right thoracentesis later today. Later in the day had a left thoracentesis as this was a larger pleural effusion by ultrasound. 250 mL of red fluid removed. PH greater than 7.50. G stain with no white blood cells and no organisms The tube was clotted so no cell counts were performed. cytology negative. Cultures are pending, chemistries are pending. 09/12/2024: Patient tells me that she felt she was breathing better after the thoracentesis yesterday. Overall she feels her breathing is much better but she is tired and fatigued. She says she is breathing normally at rest. She denies cough, phlegm or hemoptysis. Patient was on 4 L nasal cannula saturations 90%. White blood cell count 8.3, creatinine 0.79. Patient is afebrile. BNP 3660. Chest x-ray today shows no reaccumulation of the left pleural effusion, small right pleural effusion with congestion. Yesterday she diuresed 310 mL. Cumulative she is positive 1.8 L since admission. Weight today is 73.5 kg. She is on Lasix 40 IV P q.day. Later in the day patient had an EGD which demonstrated a small hiatal hernia and gastritis. Patient tells me she tolerated the procedure well from a respiratory viewpoint. 09/13/24: Patient tells me she is breathing normal in better than she has in the last 2 months. Her cough is normal with no phlegm and no hemoptysis. She is on 4 L nasal cannula saturation 94%. White blood cell count 7.9. Creatinine 0.92. her weight today is 73.9. Yesterday she was positive 300 mL and cumulative she is positive 2.3 L since admission. DATA 09/06/24: CT Scan of the Chest without Contrast: Clinical Indication: COPD Technique: Contiguous sections were acquired throughout the chest without intravenous contrast. Dose reduction technique was used on this scan by utilizing automated exposure control and iterative reconstruction technique. The dose-length product (DLP) was 169.98 mGy-cm. COMPARISON: 04-03 Findings: There is no evidence of any significant mediastinal, hilar or axillary lymphadenopathy. There are extensive atherosclerotic calcifications of the aorta and coronary arteries. No pericardial effusion. Small bilateral pleural effusions are present. There is diffuse interstitial edema. Images through the upper abdomen reveal no abnormalities. Right-sided breast implant versus ovoid mass is stable from prior exam. Stable T8 compression fracture. Impression: Small bilateral pleural effusions with interstitial pulmonary edema. Stable right breast implant versus less likely mass. Correlate with prior history. Stable T8 compression fracture. Compared with 03/12/2024 bilateral pleural effusions are much less and now very small right and minimal left. Improved bilateral mild interstitial infiltrates without bronchiectasis. Improved right middle lobe nodule. Will follow the patient clinically. 09/05/24: Home O2 assessment: Rest room air saturation 77%. Rest nasal cannula 2 L saturation 85%. Rest nasal cannula 4 L saturation 90%. Exercise 4 L nasal cannula saturation 85%. Exercise nasal cannula 6 L saturation 87%. Exercise 7 L nasal cannula saturation 88%. Exercise 8 L nasal cannula saturation 90%. Patient requires 4 L at rest and 8 with activity. Sputum for AFB from 08/28/2024, 08/29/2024 and 08/30/2024 is pending. 06/11/2024: Sputum AFB smear negative, culture negative at 6 weeks 06/10/2024:? Sputum AFB smear negative, culture negative at 6 weeks 04/30/2024: Sputum from 03/18/2024 has grown out mycobacterium avium intracellulare. ?08/06/24: Sensitivities AMIKACIN:? 16 S mcg/mL ? AMIKACIN (LIPOSOMAL, INHALED):? 16 S mcg/mL ? CIPROFLOXACIN:? >8 mcg/mL ? CLARITHROMYCIN: ?2 S mcg/mL ? CLOFAZIMINE:? 0.25 mcg/mL??? DOXYCYCLINE:? >8 mcg/mL ? LINEZOLID:? 32 R mcg/mL ? MINOCYCLINE:? >8 mcg/mL??? MOXIFLOXACIN:? 4 R mcg/mL ? RIFAMPIN:? >4 mcg/mL ? RIFABUTIN:? 0.5 mcg/mL ? STREPTOMYCIN:? >32 This is a corrected result. ? A prior result that was reported as final has been changed. ? 1. Mycobacterium avium-intracellu ? M.I.C.??? RX?--------- --- ?Rifampin AFB? >4?S ?Amikacin AFB? 16?S ?Moxifloxacin AFB? R? 03/19/2024: Sputum smear negative for AFB and culture negative at 6 weeks. 03/19/24: Pleural fluid: 300 mL of kenneth fluid removed. G stain was many white blood cells, no organisms seen. PH greater than 7.50, white blood cell count 2109 with a differential neutrophils 17%, lymphocytes 32%, macrophages 38%, mesothelial cells 13%. she says her breathing immediately improved with the thoracentesis. Pleural LDH 184/ serum LDH 363= 0.51 . pleural total protein 3.0/ serum total protein 7.0 equals 0.43. serum albumin 4.1, pleural albumin 2.0, gradient 2.1. Pleural glucose 110, pleural cholesterol 33. Pleural cytology negative for malignancy. anaerobic culture negative. Fungal stain and culture negative. AFB smear and culture negative. This pleural effusion is a transudative, noninfected, macrophage predominant, cytology negative effusion., 11/04/2023: Polysomnogram Periodic Limb Movements The patient had 87 isolated limb movements with an index of 14.1. The patient had 215 periodic limb movements with an index of 34.9, which is elevated (normal <15). Patient had a total of 302 limb movements with a total limb movement index of 49.0. Assessment and plan: (1) Nocturnal hypoxemia: The patient had an overall AHI of 2.1 with desaturation down to 77%. This is not consistent with sleep-disordered breathing. The patient had persistent hypoxemia in the absence of respiratory events. Supplemental oxygen was started at 1 lpm of O2 and titrated to 3.5 lpm of O2. The patient oxygen saturation was unable to remain above 90% on the final oxygen settings. I recommend that the patient use 4 lpm of supplemental oxygen with sleep. I recommend that she have a nocturnal oximetry done 2 weeks after implementing the recommended oxygen settings to ensure that her oxygen saturation remains above 90%. (2) PLMD (periodic limb movement disorder): The patient had a significant number of limb movements during the study with the majority being periodic in nature. Approximately 25% of the periodic limb movements caused arousals during sleep. The patient's sleep history does not suggest Restless Leg Syndrome. I recommend that the patient have a serum ferritin drawn for evaluation of iron deficiency anemia. If the patient has a serum ferritin less than 75 ng/mL, I recommend starting a daily iron supplement and a Vitamin C supplement for better absorption. If the serum ferritin is greater than 75 ng/mL, I recommend starting a dopamine agonist and titrating the dose until symptoms resolve. There are nonpharmacological methods to treat limb movements including daily exercise, stretching calf muscles before bed, avoiding excessive amounts of caffeine and alcohol, vitamin B supplementation, magnesium lotion massaged into legs before bed, and use of a weighted blanket. I will order ferritin blood test. 10/25/2023: Overnight oximetry on 6 L nasal cannula. The family was present for this test and confirmed the patient was on 6 L, and that she wore the 6 L all night. Recording duration 9 hours and 57 minutes. Basal saturation 94.6%. High saturation 99%. Low saturation 82%. Time with saturation less than or equal to 88% was 2 minutes and 26 seconds. Oxygen desaturation index was 7. I will continue 6 L nasal cannula at night. 07/06/2023 (results received from [facility] on 08/25/23):? Overnight oximetry on 5 L nasal cannula.? Recording duration 9 hours and 35 minutes.? Basal saturation 86.6%.? High saturation 98%.? Low saturation 65%.? Time with saturation less than or equal to 88% was 4 hours and 28 minutes.? Oxygen desaturation index is 20. unsure if patient was wearing oxygen and at what level, repeat ordered on 5 L 05/13/2023: Home O2 assessment:? Rest room air saturation 86%.? Rest nasal cannula 1 L saturation 88%.? Rest nasal cannula 2 L saturation 90%.? Exercise nasal cannula 2 L saturation 88%.? Exercise nasal cannula 3 L saturation 90%. ?Requires 2 L with rest and 3 with activity 03/12/30 EXAMINATION: XR chest 1V portable ??INDICATION: Pleural effusions. ??COMPARISON: Chest single view 04/08/2023, chest CT 03/30/2023 ??FINDINGS: There is a diffuse interstitial pattern in the lungs. There are airspace opacities in right mid and lower lung zones and left lower lung zone. There are small pleural effusions. No pneumothorax. Cardiomegaly is noted. ??IMPRESSION: ??1. Stable diffuse lung disease, consistent with pulmonary edema versus pneumonia. ??2. Stable small pleural effusions. ??3. Cardiomegaly. ?03/23/23: EXAMINATION: CTA chest PE protocol ??DATE: 03/23/2023 14:04 ??INDICATION: SOB ??COMPARISON: 07/20/2022 ??FINDINGS: The pulmonary arteries are well-opacified. No pulmonary embolism is identified. There are moderate-sized right and small left pleural effusions. There is complete left upper lobe collapse due to mucous plugging. There is also complete atelectasis of the right middle lobe. There is intralobular septal thickening with groundglass opacity with a right lung predominance. There is dependent atelectasis of the left lower lobe. There is a right breast implant. There is mild bilateral hilar and mediastinal lymphadenopathy, likely reactive. No pneumothorax is identified. Punctate calcifications in an otherwise normal spleen likely represent healed granulomatous disease. Changes of cholecystectomy are noted. There is moderate thoracic spondylosis. A chronic T8 compression fracture is noted. ??IMPRESSION: ??1. No pulmonary embolus. ??2. Left upper lobe collapse related to mucous plugging ??3. Complete atelectasis of the right middle lobe. ??4. Moderate size right and small left pleural effusions. ??5. Findings consistent with asymmetric edema of the right upper lobe. ?03/30/[address] Mild pulmonary edema. ??2. Mild atelectasis in the lungs with interval improvement. ??3. Moderate emphysema. ??4. Small pleural effusions. ?03/22/23 Echo Summary ??? 1. Complete two-dimensional, color flow and Doppler transthoracic ??echocardiogram is performed. ??? 2. Severe pulmonary artery enlargement. ??? 3. Left ventricular chamber dimension is normal. ??? 4. Left ventricular systolic function is normal, estimated at 60-65%. ??? 5. There is mildly increased left ventricular wall thickness. ??? 6. The left ventricular diastolic function is grade II diastolic ??dysfunction. ??? 7. The basal inferior wall is akinetic. ??? 8. Left atrial chamber dimension is moderately enlarged. ??? 9. Right atrial chamber dimension is mildly enlarged. ??? 10. Right ventricular chamber dimension is mildly enlarged. ??? 11. There is moderate aortic valve stenosis with a peak velocity of 224 ??cm/s, mean gradient of 11 mmHg, and aortic valve area of 1.5 cm2. ??? 12. There is moderate aortic valve regurgitation. ??? 13. There is moderate aortic valve calcification. ?? 14. The mitral valve annulus is mildly calcified. ??? 15. There is moderate mitral valve regurgitation. ??? 16. There is mild tricuspid valve regurgitation. ??? 17. Mild pulmonary hypertension, estimated pulmonary arterial systolic ??pressure is 43 mmHg. ??? 18. There is mild pulmonic regurgitation. ??Right Ventricle ??? Right ventricular chamber dimension is mildly enlarged. ??? Right ventricular systolic function is normal. ??Right Atria ??? Right atrial chamber dimension is mildly enlarged. ?? * 03/17/23 CXR compared to 01/24 CXR with intervall progression of bilateral airspace disease which may represent edema and/or pneumonia. ??document embedded image ??* 01/26/23 - echo: EF 65-70%, mildly increased LV wall thickness, LV diastolic function indeterminate, mild aortic valve stenosis, mild-mod aortic and tricuspid valve regurgitation, mild pulmHTN RVSP 44mmHg. ??* 07/20/[address] - Stable pulmonary nodules, likely benign. Moderate emphysema. ??Moderate obstructive airway disease by PFT in July of 2021, severely lung diffusion capacity. ??* 12/16/21 Home O2 Eval - need for 2L O2 with activity, none at rest. ??* 01/26/22: Overnight oximetry - 324 min spent below 88% saturation. ? ?07/17/2021 PFTs ?The test was performed and results interpreted in accordance with the 2019 and 2005 ATS/ERS Task Force guidelines respectively using the Global Lung Function Initiative-2012 reference equations. Patient demonstrated good effort and cooperation. Reproducibility criteria were met. The quality of the spirometry maneuver was Grade A.? Of note the patient had persistent coughing throughout the test. ?Findings: ?Spirometry:? There is decreased maximal expiratory airflow at all lung volumes with a concave expiratory flow tracing.? The contour the inspiratory flow tracing is normal.? The FVC is 2.13 L, 81% predicted.? The FEV1 is 1.25 L, 62% predicted.? The FEV1:? FVC ratio is 59%. ?Plethysmography:? The total lung capacity is 5.70 L, 112% predicted.? The functional residual capacity is 4.32 L, 148% predicted.? The residual volume is 3.04 L, 130% predicted.? ?Diffusing capacity:? The diffusing capacity unadjusted for hemoglobin and carboxyhemoglobin is 8.0, 40% predicted.? The diffusing capacity adjusted for alveolar volume is 2.26, 54% predicted. ?Impression: There is a moderate obstructive abnormality. Hyperinflation is present is demonstrated by the increase in functional residual capacity and is consistent with an obstructive abnormality. The diffusing capacity unadjusted for hemoglobin is moderately decreased and normalizes when adjusted for alveolar volume. ?There are no prior studies for comparison ? ??* 05/25/22 : Overnight oximetry on 2.5L O2 - 13min spent below 88% but looks likely artifact. She continued 2.5L. ??* 07/26/20 - Chest CT:? mild to moderate emphysema. 6 mm right middle lobe nodule along a band of linear discoid atelectasis/scarring. ??* Alpha 1 MM normal.Alpha 1 PIMM normal Review of Systems Constitutional: Constitutional: Reports no additional constitutional complaints Eyes: Eyes: Reports no additional eye complaints ENT: Reports system reviewed and no additional complaints, except as documented Cardiovascular: Cardiovascular: Reports no additional cardiovascular complaints Respiratory: Respiratory: Reports no additional respiratory complaints Gastrointestinal: Gastrointestinal: Reports no additional gastrointestinal complaints Musculoskeletal: Musculoskeletal: Reports no additional musculoskeletal complaints Neurologic: Reports system reviewed and no additional complaints, except as documented Psychiatric: Psychiatric: Reports no additional psychiatric complaints Endocrine: Endocrine: Reports no additional endocrine complaints Hematologic/Lymphatic: Hematologic/Lymphatic: Reports no additional hematologic/lymphatic complaints Allergic/Immunologic: Allergic/Immunologic: Reports no additional allergic/immunologic complaints Exam Const: General: cooperative, healthy appearing and comfortable Orientation/consciousness: oriented to person, oriented to place and oriented to time HENMT: Head: normal to inspection Ears: hearing grossly normal bilaterally Eyes: General: appearance normal, both eyes and all related structures Neck: Neck: normal visual inspection Chest: Chest palpation & inspection: normal inspection of the chest Resp: Effort & Inspection: normal respiratory effort and able to speak in complete sentences Auscultation: no crackles, no rales, no rhonchi, no wheezes and diminished lung sounds Other: Diminished at the bases. Cardio: Jugular venous distension: no JVD GI: Inspection: normal to inspection Skin: General skin exam: normal color Neuro: General: oriented to person, oriented to place and oriented to time Extrem: General: normal to inspection and edema Psych: Appearance: grossly normal Objective Data Vital Signs Vital Signs: Vital Signs - 24 hr 09/12/24 11:39 09/12/24 12:00 09/12/24 12:00 Temperature 36.6 C Pulse Rate 103 H 98 Respiratory Rate 24 H Blood Pressure 126/65 Pulse Oximetry 92 93 Oxygen Delivery Nasal Cannula Oxygen Flow Rate 4 Fraction of Inspired Oxygen 09/12/24 14:30 09/12/24 15:15 09/12/24 15:25 Temperature 36.8 C Pulse Rate 110 H 100 97 Respiratory Rate 18 30 H 29 H Blood Pressure 144/88 H 136/80 150/67 H Pulse Oximetry 93 96 97 Oxygen Delivery Nasal Cannula Simple Face Mask Simple Face Mask Oxygen Flow Rate 6 8 8 Fraction of Inspired Oxygen 09/12/24 15:35 09/12/24 16:00 09/12/24 16:00 Temperature Pulse Rate 93 111 H 103 H Respiratory Rate 31 H 24 H Blood Pressure 133/92 H 126/64 Pulse Oximetry 97 93 Oxygen Delivery Nasal Cannula Oxygen Flow Rate 6 Fraction of Inspired Oxygen 09/12/24 16:03 09/12/24 16:19 09/12/24 20:00 Temperature 36.6 C Pulse Rate 104 H 101 H 103 H Respiratory Rate 20 20 18 Blood Pressure 132/64 Pulse Oximetry 92 Oxygen Delivery Oxygen Flow Rate Fraction of Inspired Oxygen 09/12/24 20:00 09/12/24 20:00 09/12/24 20:33 Temperature Pulse Rate 95 95 Respiratory Rate 20 Blood Pressure Pulse Oximetry 96 Oxygen Delivery Nasal Cannula Oxygen Flow Rate 4 Fraction of Inspired Oxygen 35 09/12/24 20:35 09/12/24 20:40 09/12/24 22:58 Temperature 36.2 C L Pulse Rate 102 H 102 H Respiratory Rate 20 16 Blood Pressure 130/59 L Pulse Oximetry 96 95 Oxygen Delivery Nasal Cannula Oxygen Flow Rate 4 Fraction of Inspired Oxygen 09/13/24 00:00 09/13/24 02:03 09/13/24 02:14 Temperature Pulse Rate 89 105 H 95 Respiratory Rate 20 20 Blood Pressure Pulse Oximetry Oxygen Delivery Oxygen Flow Rate Fraction of Inspired Oxygen 09/13/24 04:00 09/13/24 05:15 09/13/24 05:46 Temperature 36.4 C Pulse Rate 93 64 100 Respiratory Rate 13 20 Blood Pressure 125/65 Pulse Oximetry 95 Oxygen Delivery Oxygen Flow Rate Fraction of Inspired Oxygen 09/13/24 05:58 09/13/24 08:40 09/13/24 08:50 Temperature Pulse Rate 94 89 95 Respiratory Rate 20 20 20 Blood Pressure Pulse Oximetry Oxygen Delivery Oxygen Flow Rate Fraction of Inspired Oxygen Intake/Output Intake/Output: Intake & Output 09/10/24 09/11/24 09/12/24 09/13/24 23:59 23:59 23:59 23:59 Intake Total 2143.0 990 1300 340 Output Total 400 1200 1000 100 Balance 1743.0 -210 300 240 Meds/Results Medications: Active Medications Generic Name Dose Route Start Last Admin Trade Name Freq PRN Reason Stop Dose Admin Acetaminophen 650 mg 09/09/24 15:42 09/11/24 12:35 Acetaminophen 325 Mg Tablet PO 650 mg Q4H PRN Administration Mild Pain (1-3) or Fever Hydrocodone Bitart/Acetaminophen 1 tab 09/09/24 20:00 09/12/24 20:20 Hydrocodone/Acetaminophen (*Crx) 5-325 Mg Tablet PO 1 tab Q6H PRN Administration pain 4-6 Albuterol 2 puff 09/09/24 20:00 09/11/24 04:40 Albuterol Sulfate (*Sp) Aerosol 1 Puff INHALATION 2 puff Q4HRT PRN Administration Shortness Of Breath Or Wheezing Alprazolam 1 mg 09/09/24 21:00 09/12/24 20:20 Alprazolam (*Crx) 0.5 Mg Tablet PO 1 mg QHS HEIDE Administration Amoxicillin/Clavulanate Potassium 1 tablet 09/12/24 21:00 09/13/24 09:30 Amoxicillin/Clavulanate K 875-125 Mg Tab PO 09/16/24 09:01 1 tablet Q12HR HEIDE Administration Atorvastatin Calcium 10 mg 09/09/24 21:00 09/12/24 20:20 Atorvastatin 10 Mg Tablet PO 10 mg HS HEIDE Administration Colestipol HCl 2 gm 09/10/24 09:00 09/12/24 08:03 Colestipol Hcl 1 Gm Tablet PO 2 gm DAILY HEIDE Administration Diltiazem HCl 360 mg 09/10/24 09:00 09/13/24 09:30 Diltiazem Hcl Cd 180 Mg Cap.24hr PO 360 mg DAILY HEIDE Administration Doxycycline Hyclate 100 mg 09/12/24 21:00 09/13/24 09:30 Doxycycline Hyclate 100 Mg Tablet PO 09/14/24 09:01 100 mg Q12HR HEIDE Administration Furosemide 40 mg 09/11/24 09:00 09/13/24 09:30 Furosemide Inj 40 Mg/4 Ml Vial IV PUSH 40 mg DAILY HEIDE Administration Guaifenesin 1,200 mg 09/11/24 10:10 09/13/24 09:30 Guaifenesin 12 Hr 600 Mg Tabcr PO 1,200 mg Q12HR HEIDE Administration Ipratropium [place] 0.5 mg 09/10/24 20:00 09/13/24 08:40 Ipratropium Br 0.02% Inh Soln 0.5 Mg/2.5 Ml Vial INHALATION 0.5 mg Q6HRT HEIDE Administration Levalbuterol HCl 1.25 mg 09/11/24 14:00 09/13/24 02:00 Levalbuterol Neb 1.25 Mg/3 Ml INHALATION 1.25 mg Q6HRT HEIDE Administration Pantoprazole Sodium 40 mg 09/09/24 21:00 09/13/24 09:30 Pantoprazole Sodium Iv 40 Mg Vial IV PUSH 40 mg Q12HR HEIDE Administration Potassium Chloride 20 meq 09/09/24 17:00 09/13/24 09:30 Potassium Chloride 20 Meq Er Tablet PO 20 meq BID HEIDE Administration Sertraline HCl 200 mg 09/10/24 09:00 09/13/24 09:30 Sertraline Hcl 50 Mg Tablet PO 200 mg DAILY HEIDE Administration Radiology Results: ITS Impressions Thoracentesis Ultrasound 09/11/24 16:16 IMPRESSION: 1. Successful ultrasound-guided thoracentesis yielding 250 mL of reddish fluid. Chest X-Ray 09/12/24 08:38 Impression: 1: Cardiomegaly with chronic interstitial edema. Labs Labs: Laboratory Results - last 24 hr 09/11/24 09/13/24 14:31 06:20 WBC 7.9 RBC 3.20 L Hgb 8.6 L Hct 29.5 L MCV 92.2 MCH 26.9 MCHC 29.2 L RDW 16.4 H Plt Count 186 MPV 9.2 Sodium 140 Potassium 4.7 Chloride 105 Carbon Dioxide 29 Anion Gap 6 BUN 21 H Creatinine 0.92 Estim Creat Clear Calc 42 Estimated GFR 59 Glucose 135 H Calcium 9.4 Total Bilirubin 0.4 AST 18 ALT 10 Alkaline Phosphatase 74 Total Protein 6.9 Albumin 3.9 Pleural Neutrophils 16 Pleural Lymphocytes 53 Pleural Monocytes 5 Pleural Macrophages 26
--- NOTE | 2024-09-13 13:48 | HOMEO2EVAL ---
Evaluation was performed at [facility] Home Oxygen Evaluation RC: Home Oxygen (O2) Evaluation Start: 09/13/24 10:47 Freq: ONCE Status: Active Protocol: RPE Activity Type Activity Date Activity User E-sign Co-sign Detail Recorded Client Recorded Date Recorded By Document 09/13/24 11:35 ADILSON [email or web address] 09/13/24 13:48 ADILSON Document 09/13/24 11:36 ADILSON [email or web address] 09/13/24 13:48 ADILSON Document 09/13/24 11:37 ADILSON [email or web address] 09/13/24 13:48 ADILSON Document 09/13/24 11:38 ADILSON [email or web address] 09/13/24 13:48 ADILSON Document 09/13/24 11:40 ADILSON [email or web address] 09/13/24 13:48 ADILSON Document 09/13/24 11:45 ADILSON [email or web address] 09/13/24 13:48 ADILSON 09/13/24 09/13/24 09/13/24 11:35 11:36 11:37 Home O2 Evaluation [Oxygen] -Test Phase Resting Resting Exercise -Oxygen Delivery Room Air Nasal Cannula Nasal Cannula -Oxygen Flow Rate (L/min) 2 3 [Pulse Oximetry] -Pulse Oximetry (90-100 %) 86 L 90 86 L [Exercise] -Ambulation Distance (feet) -Ambulation Distance (meters) [Comments] -Home Oxygen Evaluation Comments 09/13/24 09/13/24 09/13/24 11:38 11:40 11:45 Home O2 Evaluation [Oxygen] -Test Phase Exercise Exercise Resting -Oxygen Delivery Nasal Cannula Nasal Cannula Nasal Cannula -Oxygen Flow Rate (L/min) 4 6 2 [Pulse Oximetry] -Pulse Oximetry (90-100 %) 85 L 90 91 [Exercise] -Ambulation Distance (feet) 100 -Ambulation Distance (meters) 30.47 [Comments] -Home Oxygen Evaluation Comments PT REQUIRES 2 LITERS REST AND 6 LITERS ACTIVITY
[2024-09-13] MEDS: COLESTIPOL HCL 1 GM TABLET 2 GM PO (13:49)
--- NOTE | 2024-09-13 13:49 | PCRCNOTE ---
PT HAS HOME O2 WITH [facility], PT HAS TANKS FOR TRANSPORT HOME, 2L REST 6L ACT.
--- NOTE | 2024-09-13 14:32 | P.DS_ITS ---
DS: Admitting Diagnosis Discharge Date 09/13/2024 Admitting Diagnosis Shortness of breath DS: Discharge Diagnosis Discharge Diagnosis (1) COPD exacerbation: Code(s): J44.1 - Chronic obstructive pulmonary disease with (acute) exacerbation Status: Acute Assessment and Plan: Please refer to hospital summary for brief course of hospitalization Previous history of pleural effusion which indicated transudative Baseline 6-8 L at rest Continue DuoNeb q.4 hours Started ceftriaxone and doxycycline Comorbid conditions CHF Patient denies smoking and KAREEM Came from ED with BiPAP but currently on HFNC Pending medication reconciliation from pharmacy Pulmonology consulted CT Chest:Small bilateral pleural effusions with interstitial pulmonary edema. Stable right breast implant versus less likely mass. Correlate with prior history. Stable T8 compression fracture. (2) SOB (shortness of breath): Code(s): R06.02 - Shortness of breath Status: Acute Assessment and Plan: as mentioned above (3) Anxiety: Code(s): F41.9 - Anxiety disorder, unspecified Status: Acute Assessment and Plan: Continue Xanax 1 mg p.o. q.h.s. (4) Hypertension: Qualifiers: Hypertension type: primary hypertension Qualified Code(s): I10 - Essential (primary) hypertension Code(s): I10 - Essential (primary) hypertension Status: Chronic Assessment and Plan: Diltiazem 360 mg p.o. q.d. (5) CHF (congestive heart failure): Code(s): I50.9 - Heart failure, unspecified Status: Acute Assessment and Plan: Echo performed on March 2024 showing right to left shunt by positive agitated saline study, normal LV size and systolic fxn with EF 50-55%, dilated RV with preserved systolic function and moderate , moderate AI and mild MR. In Mar 2023, EF 60-65%, Grade II diastolic dysfunction, akinetic basal inferior wall and moderate , moderate MR and mild pulmonary HTN. Moderate has worsened with ESTRELLITA 1.5 -> 1.1cm2 now. 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 Follows up with the pulmonology as outpatient (8) Anemia: Code(s): D64.9 - Anemia, unspecified Status: Chronic Assessment and Plan: Order PPI b.i.d. Received 1 unit PRBC Monitor H&H FOBT positive Holding Eliquis and Plavix GI consulted (9) Pleural effusion: Code(s): J90 - Pleural effusion, not elsewhere classified Status: Acute Assessment and Plan: Ordered thoracentesis Order Lasix 40 mg IV b.i.d. DS: Summary Hospital Course Hospital Course: 78-year-old female with a past medical history of COPD, CAD status post-PCI, and AFib visited the ED due to shortness of breath. Pertinent ED labs:WBC 10.8,HgB 6.7, PLT 202, Na 142, K 3.3, Cr 0.84 BNP:2600 CXR:1. Worsening still mild to moderate edema and new small bilateral pleural effusions, right greater than left, consistent with given history of congestive heart failure. 2. Mild cardiomegaly. 09/06/24 CT chest: Small bilateral pleural effusions with interstitial pulmonary edema. Stable right breast implant versus less likely mass. Correlate with prior history. Stable T8 compression fracture. The patient is admitted in the setting of COPD exacerbation and anemia. Regarding COPD, the patient started on Ceftriaxone and Doxycycline, and pulmonology will be consulted. A patient recently saw Dr. Donato on August 20 and and was prescribed Stiolto Respimat 2.5-2.5 at one puff twice daily and rescue albuterol at two puffs as needed for shortness of breath or wheezing every 4 hours. Baseline patient oxygen 6-8 L at rest. In regards to PMHx NESTOR, she has one sputum with NESTOR and three negative sputum. I had a long discussion with Ms. MILO SMITH. She reports seeing Dr. Donato on 09/05 and underwent a walk test, during which she was advised to have 4 L at rest, 6 L at sleep, and was treated during exertion. Additionally, it was reported that the patient takes Stilto,and Lasix 40mg PO BID but it couldn't be found in the home medication.Called pharmacy and waiting for confirmation In regards to pleural effusion will order thoracentesis with the pleural effusion studies. I will start Lasix 40 mg IV b.i.d. I will also repeat the echocardiogram in the AM to reassess valvular status. The patient refuses ABG. The patient was previously followed by Dr. Romero, a Lithographic Camera Operator, but is currently seeing Dr. Lilly. The patient was previously taking amiodarone but is currently on diltiazem and Eliquis for AFib. She also reported the patient takes Lasix 40 mg p.o. b.i.d.I will consult cardiology for possible CHF exacerbation and medication reconciliation. Regarding acute anemia, the patient's FOBT is positive, and GI consultation is indicated. The patient received 1 U PRBC.. The patient had a remote history of GI bleeding 10-12 years ago but couldn't tell the details; she says they fixed it but gave a warning about possible rebleeding. Also advise to perform CBC in a week and discuss the result with PCP In regards to anemia patient underwent EGD which shows hiatal hernia and gastritis. Please refer to full report. Discussed with Gastroenterology who agrees to continue Plavix and Eliquis upon discharge. Discussed with Cardiology and inquired about the necessity of Plavix since the patient had stent placement in 2010. Cardiology agrees to discontinue Plavix and continue only Eliquis. Also discussed with Cardiology who agrees to discharge with Lasix 40 mg p.o. b.i.d.. In regards to pleural effusion patient underwent thoracentesis the preliminary result shows not infectious process. Patient underwent thoracentesis on her previous admission as well which shows transudative. In regards to COPD patient closely follow-up with Dr. Donato. Home O2 assessment: Rest room air saturation 86%. Rest nasal cannula 2 L saturation 90%. Exercise nasal cannula 3 L saturation 86%. Exercise nasal cannula 4 L saturation 85%. Exercise nasal cannula 6 L saturation 90%. Patient requires 2 L at rest and 6 with activity. Patient should wear [address] Donato recommended: Augmentin 875-125 b.i.d. times 3 days Doxycycline 100 mg p.o. b.i.d. x3 days Stiolto Respimat 2.5-2.5 at 1 puff q.day Rescue albuterol 2 puffs q.4 hours p.r.n. shortness of breath or wheezing DuoNebs q.4 hours p.r.n. shortness of breath or wheezing. Guaifenesin 600 mg p.o. b.i.d. p.r.n. congestion. Oxygen at rest and with activity per formal home O2 assessment Oxygen at night using the same level as prescribed with activity Diuretics per Cardiology and hospitalist team. Patient was previously on 40 p.o. b.i.d. and came in with fluid overload. I called her daughter Cristel and updated the plan. On the day of discharge, the patient was seen and examined. Patient reports she is feeling very well after the thoracentesis. Vital signs were stable. Physical exam were stable and labs were reviewed at length. Discharge instructions, medications, and follow-up appointments were discussed with the patient at length and all day questions were answered. ER warnings were given. Status at Discharge Cognitive/behavioral status at discharge: Stable Time Spent with Patient Time attestation: Total time spent providing and/or coordinating discharge services: 45 minutes Exam Narrative: General appearance: Well-developed, well-nourished Skin: Normal color Head: Normocephalic, nontraumatic Eyes: Clear conjunctiva ENT: Oropharynx normal, ears normal, nose normal Neck: Supple, nontender Chest and respiratory: Airway patent, new dudley of air entry bilaterally, no wheezing, no rhonchi, no basilar rales slight labored breathing Heart: Regular rate/rhythm Abdomen: Soft, nontender, no organomegaly, quiet bowel sounds, guaiac stool positive for blood Vascular: Normal peripheral pulses, normal capillary refill. 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, no gross motor deficit DS: Data Data Completed and Pending Completed studies during hospitalization: Pending at discharge 09/09/24 20:24 Cytology [PTH] Routine Pending studies at discharge: Pending at discharge 09/12/24 15:10 Surgical [PTH] Routine Labs on day of discharge: Labs from last 24 hours 09/13/24 06:20 WBC 7.9 RBC 3.20 L Hgb 8.6 L Hct 29.5 L MCV 92.2 MCH 26.9 MCHC 29.2 L RDW 16.4 H Plt Count 186 MPV 9.2 Sodium 140 Potassium 4.7 Chloride 105 Carbon Dioxide 29 Anion Gap 6 BUN 21 H Creatinine 0.92 Estim Creat Clear Calc 42 Estimated GFR 59 Glucose 135 H Calcium 9.4 Total Bilirubin 0.4 AST 18 ALT 10 Alkaline Phosphatase 74 Total Protein 6.9 Albumin 3.9 Preliminary micro results at discharge 09/11/24 14:45 Anaerobic Culture - Preliminary Pleural Fluid Aerobic Culture - Preliminary Imaging Radiologist's impression: ITS Impressions Chest X-Ray 09/09/24 12:58 IMPRESSION: 1. Worsening still mild to moderate edema and new small bilateral pleural effusions, right greater than left consistent with given history of congestive heart failure. 2. Mild cardiomegaly. Chest X-Ray 09/11/24 16:03 Impression: 1: Cardiomegaly with pulmonary edema. 2: Small right pleural effusion. 3: No pneumothorax post procedure. Thoracentesis Ultrasound 09/11/24 16:16 IMPRESSION: 1. Successful ultrasound-guided thoracentesis yielding 250 mL of reddish fluid. Chest X-Ray 09/12/24 08:38 Impression: 1: Cardiomegaly with chronic interstitial edema. Discharge Plan Discharge Attending physician on discharge: Leno Jama Consulting providers: Tahir Donato; Ashok Villa Discharging Clinician: Leon Jama Anticipated Discharge Date/Time: 09/13/24 14:39 Patient Disposition: [facility] Activity: as tolerated Diet: heart healthy Discharge Instructions: In regards to anemia please perform CBC in a week follow-up the results with PCP or property analyst. Patient discharged with Lasix 40 mg p.o. b.i.d.. Daily weights, if you gain more than 3lb within 1 day or 5 lbs in 1 week please call cardiology and take extra 1 tablet of Lasix 40 mg p.o. if Cardiology agrees As per pulmonology: Augmentin 875-125 b.i.d. times 3 days Doxycycline 100 mg p.o. b.i.d. x3 days Stiolto Respimat 2.5-2.5 at 1 puff q.day Rescue albuterol 2 puffs q.4 hours p.r.n. shortness of breath or wheezing DuoNebs q.4 hours p.r.n. shortness of breath or wheezing. Guaifenesin 600 mg p.o. b.i.d. p.r.n. congestion. Oxygen at rest and with activity per formal home O2 assessment Oxygen at night using the same level as prescribed with activity Check blood pressure 1 to 2 times a day. Record and bring into your doctor for review. Call your doctor if your blood pressure is greater than 180/110 or less than 90/45. Walk with cane or other assist device. Take precautions to avoid falls. Rise slowly from a lying or sitting position. Pause before standing or walking. Contact your doctor or call 911 and come to the Emergency Room if you have any type of trauma, lightheadedness with standing or other worrisome symptoms. Avoid NSAIDs (ibuprofen, naproxen, Aleve). Tylenol is safe to take. Follow-up with your primary care provider in 1-2 weeks. Please call for appointment. Follow-up with Cardiology, Hematology, Gastroenterology in 2-4 weeks. Please call for an appointment. Thank you for using [facility] for your health care needs. Patient Instructions: Antibiotic Form, Apixaban (By mouth), Heart Failure (DC) Patient Language: [place] Islander Stand Alone Forms: General Discharge Information Follow-up/Referrals: Agusto Calvert MD [Physician] - (Anemia. EGD normal) Aurea Lilly MD [Physician] - Adis Hurd DO [Primary Care Provider] - Tahir Donato MD [Physician] - Discharge Medications: New doxycycline hyclate 100 mg Tablet 100 mg PO Q12HR Qty: 6 0RF guaifenesin [Mucus Relief ER] 600 mg Tablet Extended Release 12hr 1,200 mg PO Q12HR PRN (Reason: congestion) Qty: 30 0RF furosemide [Lasix] 40 mg tablet 40 mg PO BID Qty: 60 0RF Stiolto Respimat 2.5-2.5 mcg/actuation mist 1 puff inhalation DAILY Qty: 4 0RF amoxicillin-pot clavulanate 875-125 mg tablet 1 tablet PO Q12H Qty: 6 0RF Continued diltiazem HCl 240 mg capsule,extended release 24hr 360 mg PO DAILY Eliquis 5 mg tablet 5 mg PO BID hydrocodone-acetaminophen 5-325 mg tablet 1 tablet PO Q6H PRN (Reason: pain) Qty: 10 0RF albuterol sulfate 90 mcg/actuation HFA aerosol inhaler 2 puff inhalation Q4H PRN (Reason: Shortness Of Breath Or Wheezing) Rx Instructions: USE 2 INHALATIONS EVERY 4 TO 6 HOURS NEEDED FOR SHORTNESS OF BREATH OR WHEEZING colestipol 1 gram tablet 2 g PO DAILY atorvastatin 10 mg Tablet 10 mg PO HS sertraline 100 mg tablet 200 mg PO DAILY Qty: 180 2RF ipratropium-albuterol 0.5 mg-3 mg(2.5 mg base)/3 mL solution for nebulization 3 ml inhalation Q4H PRN (Reason: shortness of breath or wheezing) Qty: 180 6RF alprazolam [Xanax] 1 mg tablet 1 mg PO QHS Qty: 90 0RF Discontinued clopidogrel 75 mg tablet 75 mg PO DAILY furosemide 40 mg Tablet 20 mg PO DAILY Other Ambulatory Orders: PT Outpatient Eval and Treat (ONCE) Timeframe: 20241013 Location: Determined by Patient Ordered By: Leon Jama Complete Blood Count no Diff (Routine) Timeframe: 1 Week Location: Determined by Patient Ordered By: Leon Jama Date of admission: 09/10/24 10:20 Primary Care Provider: Adis Hurd Admitting Provider: Judson Mckeon Attending physician on admission: Judson Mckeon Condition: Stable
--- NOTE | 2024-09-13 17:00 | PC.NURSE ---
On 09/13/24, the DELIVERY MOTORCYCLE DRIVER, Eloisa Bolaños, provided care and completed [employer] documentation on this patient. I have reviewed the DELIVERY MOTORCYCLE DRIVER's documentation and agree with the findings.
[2024-09-15 14:58] LABS: Albumin Pleural Fluid 1.3 g/dL; Amylase, Pleural Fluid <10 U/L; Glucose Pleural Fluid 145 mg/dL; LDH Pleural Fluid 118 U/L
== END 2024-09-13 17:00 | DRG 190 ==
LOC: ANHED 14:41 → ANHIMU 17:36 → ANH3MEDSUR 09-13 14:41 → ANHIMU 09-14 12:02
PROVIDERS: Internal Medicine Gastroenterology; Internal Medicine Pulmonary Disease; Admitting Provider Internal Medicine; Emergency Provider Emergency Medicine; PCP Internal Medicine; Visit Provider General Practice
PROC: 0DJ08ZZ Inspection of Upper Intestinal Tract, Via Natural or Artificial Opening Endoscopic (ICD-10-PCS; principal; 2024-09-12 15:30)
DX: J44.1 Chronic obstructive pulmonary disease with (acute) exacerbation (principal); I50.33 Acute on chronic diastolic (congestive) heart failure; J96.21 Acute and chronic respiratory failure with hypoxia; A31.0 Pulmonary mycobacterial infection; I13.0 Hypertensive heart and chronic kidney disease with heart failure and stage 1 through stage 4 chronic kidney disease, or unspecified chronic kidney disease; I48.19 Other persistent atrial fibrillation; J91.8 Pleural effusion in other conditions classified elsewhere; N18.30 Chronic kidney disease, stage 3 unspecified; K44.9 Diaphragmatic hernia without obstruction or gangrene; K29.30 Chronic superficial gastritis without bleeding; I35.0 Nonrheumatic aortic (valve) stenosis; F41.9 Anxiety disorder, unspecified; D63.8 Anemia in other chronic diseases classified elsewhere; R19.7 Diarrhea, unspecified; I25.10 Atherosclerotic heart disease of native coronary artery without angina pectoris; E78.5 Hyperlipidemia, unspecified; Z79.01 Long term (current) use of anticoagulants; Z95.5 Presence of coronary angioplasty implant and graft; Z99.81 Dependence on supplemental oxygen; Z90.49 Acquired absence of other specified parts of digestive tract; Z90.710 Acquired absence of both cervix and uterus; Z87.891 Personal history of nicotine dependence
CPT/HCPCS: 32555; 36415; 36430; 71045; 80053; 82042; 82150; 82945; 83605; 83615; 83880; 83986; 84145; 84484; 85014; 85018; 85025; 85027; 85610; 85730; 86850; 86900; 86901; 86923; 87015; 87070; 87075; 87102; 87116; 87205; 87206; 87637; 88108; 88305; 89051; 93005; 94002; 94003; 94640; 96374; 96375; 97161; 99285; A9270; G0378; J0696; J1938; J2003; J2060; J2470; J2704; J7050; J7120; J7512; P9016

== ENCOUNTER 2024-10-30 15:38 | Outpatient (CLI) | payer MEDICARE, BC, SELFPAY ==
--- OUTSIDE RECORDS SUMMARY | 2024-10-30 15:41 | XMS_ITS ---
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
--- OUTSIDE RECORDS SUMMARY | 2024-10-30 15:41 | XMS_ITS | Continuity of Care Document ---
Author Organization [facility] Address [address] [place] [address] [place] [address] Phone Care Team Providers Care Queen Producer Name Role Phone Aleks Jeronimo Unavailable Unavailable Procedures Procedure Date Cataract Kit SEC MV Medical Tax Advance Directives Directive Yes / No Effective Date File Name No Information Encounters Encounter Description Practice Location Reason(s) For Visit Diagnoses Date Provider Providers Copied on Encounter [facility], [address] [place] [address] [address], [place], [place], [id number], [place] tel:[phone] SEC Katie [place] Katie No Information Phani Fink. [address] [place], [address], [place]. tel:[phone] Family History Family Member Type Diagnosis Age [...]
--- OUTSIDE RECORDS SUMMARY | 2024-10-30 15:41 | XMS_ITS ---
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
[2024-10-30 16:06] LABS: Hematocrit 30.9 % (37.0-47.0); Hemoglobin 9.0 g/dL (12.0-15.0); Immature Granulocyte Percent A 0.5 % (0-0.5); Lymphocytes Absolute Auto 0.53 K/mm3 (0.9-3.2); Mean Corpuscular HGB Conc 29.1 g/dl (32-36); Mean Corpuscular Hemoglobin 25.9 pg (26-34); Mean Corpuscular Volume 88.8 fl (80-100); Nucleated Red Blood Cells Absolute Auto 0.000 K/mm3 (0.0-0.012); Nucleated Red Blood Cells Perc 0.0 % (0.0-0.2); Platelet Count Result 239 k/mm3 (150-375); Red Blood Count 3.48 M/mm3 (4.2-5.4); White Blood Count 8.5 K/mm3 (4.5-10.0)
[2024-10-30 16:13] LABS: Schistocytes None Seen
[2024-10-30 16:15] LABS: Anisocytosis 1+; Hypochromasia 1+; Ovalocytes 1+
[2024-10-30 16:57] LABS: Iron 31 ug/dL (37-170)
[2024-10-30 17:02] LABS: Alanine Aminotransferase 20 U/L (6-35); Albumin Level 4.6 g/dL (3.5-5.1); Alkaline Phosphatase 90 U/L (38-126); Anion Gap 15 mmol/L (4-12); Aspartate Amino Transferase 26 U/L (14-36); Bilirubin,Total 0.3 mg/dL (0.2-1.3); Blood Urea Nitrogen 17 mg/dL (7-17); Calcium 9.7 mg/dL (8.4-10.2); Carbon Dioxide 24 mmol/L (22-30); Chloride 100 mmol/L (98-107); Estimated Glomerular Filt Rate > 60; Glucose 271 mg/dL (65-110); Potassium 4.1 mmol/L (3.4-5.0); Sodium 139 mmol/L (137-145); Total Protein 8.4 g/dL (6.3-8.2)
[2024-10-30 17:08] LABS: Percent Iron Saturation 6 % (20-50)
[2024-10-30 17:35] LABS: Ferritin 22.50 ng/mL (11.1-264)
[2024-10-30 18:07] LABS: Vitamin B12 375.0 pg/mL (239-931)
== END 2024-10-30 15:39 | disposition home or self-care (01) ==
LOC: ANHLAB 15:39
PROVIDERS: PCP Internal Medicine; Visit Provider Internal Medicine Hematology & Oncology
DX: D64.9 Anemia, unspecified (principal)
CPT/HCPCS: 36415; 80053; 82607; 82728; 82746; 83540; 83550; 83615; 83921; 84238; 85025

== ENCOUNTER 2024-11-05 01:06 | Day surgery (SDC) | payer MEDICARE, BC, SELFPAY ==
[2024-10-30 11:14] VITALS: BMI 28.5
--- NOTE | 2024-10-30 11:47 | PC.NURSE ---
Report to the Outpatient Waiting Room, entrance under the green pavilion located off [facility], at time ___2:00PM____ on date ___11/05/24___. Planned Procedure Time: ___3:00PM .? Time changes happen often and if your time is changed the preop area will call you the afternoon before. - You and your visitor will be asked to self-screen and do not enter if you have any COVID symptoms. Please call surgeon if you need to reschedule. - A mask is optional within the hospital at this time. Patients may have LIGHT BREAKFAST/LUNCH, NOTHING TO EAT OR DRINK FOR 2 HOURS PRIOR TO PROCEDURE(1:00PM). Take only the following medications with a SIP of water on the morning of surgery: ___MORNING AND NOON MEDICATION. DO NOT STOP ANY OF YOUR OTHER PRESCRIPTION MEDICATIONS PRIOR TO SURGERY EXCEPT THE FOLLOWING Medications to discontinue per physician ____HOLD ELIQUIS 3 DAYS PRE-OP PER DR STEWART/PER DAUGHTER. Date to take last dose 11/01/24 Please no make-up, nail belarusian, hairspray, perfume, deodorant, or body powder the day of surgery.? No jewelry (including any body piercings) or valuables the day of surgery, leave them at home.? Please take a shower or bath the night before, or the morning of, surgery with an antibacterial soap.? Wear comfortable, loose fitting clothing.? - Jewelry must be removed prior to entering the operating room.? Rings and piercings that are not removed may be cut off. - The hospital will not accept responsibility for valuables.? - Please leave all valuables, including medications, at home the day of surgery. If you are going home after surgery, a licensed line driver must drive you home.? - NO public transportation without another adult if you receive anesthesia. - We recommend that an adult stay with you for 24 hours following discharge. - We also recommend that you do not drive, make important decision, drink alcoholic beverages, or take any drugs that were not prescribed by your health care provider for at least 24 hours after your discharge time. Follow any additional instructions given to you from your surgeon. BATH OR SHOWER NIGHT BEFORE AND MORNING OF SURGERY. NO DRIVING FOR 24HR AFTER SURGERY. Telephone instructions given to ____DAUGHTERMIGUEL and asked if any additional questions and then verbalized understanding. Patient advised to call surgeon office or pre surgery nurse liaison [phone] if any additional questions.
--- NOTE | ~2024-11-05 | XR_ITS ---
EXAMINATION: XR fluoroscopy no charge DATE: 11/05/2024 14:30 CDT INDICATION: BILATERAL BLOCKS L3, L4, L5 MEDIAL BRANCH/DORSAL RAMUS . TECHNIQUE: 13 fluoroscopic images of the lumbar spine were obtained during bilateral L3, L4, and L5 m edial branch/dorsal ramus blocks. Fluoroscopy exposure time was 53.9 seconds. Air Kerma 17.26 mGy. DA P 2.47 mGym2. COMPARISON: None FINDINGS/IMPRESSION: Fluoroscopic documentation of bilateral L3, L4, and L5 medial branch/dorsal ramus blocks. Please refe r to the operative note for complete procedural details. Reviewed, dictated and finalized at location K.
--- OUTSIDE RECORDS SUMMARY | 2024-11-05 01:09 | XMS_ITS | Encounter Summary ---
Author Organization [facility] Address [address] [place] [address] Care Team Providers Care Line Mechanic Name Role Phone Unavailable Primary Care Provider Unavailabl e Encounter Details Date Type Department Care Team (Late Contact Info) Description 11/02/2024 Orders Only [facility] Oncology [facility] [address] [place] [address] Agusto Calvert MD [address] [place], [place] [address] [address] [place] [phone] Social History Tobacco Use Types Packs/Day Years Used Date Smoking Tobacco: Never Smokeless Tobacco: Never Alcohol Use Standard Drinks/Week Comments Never 0 (1 standard drink = 0.6 oz pur e alcohol) Comments Unknown Sex and Gender Information Value Date Recorded Sex Assigned at Not on file Legal Sex Female 11:16 AM CDT Gender Identity Not on file Sexual Orientation Not on file documented as of this encounter Plan of Treatment Upcoming Encounters Date Type Department Care Team (Late Contact Info) Description 11/13/2024 4:35 PM CDT Telephone Check Up [facility] [address] [place] [address] Agusto Calvert MD [facility] [address] [place] [phone] documented as of this encounter Procedures Procedure Name Priority Date/Time Associated Diagnosis Comments TRANSFERRIN RECEPTOR TFR SOLUBLE Routine 10/30/2024 11:22 AM CDT documented in this encounter Results * TRANSFERRIN RECEPTOR TFR SOLUBLE (10/30/2024 11:22 AM CDT) Blood us Agusto Calvert MD CHEMISTRY ORDERABLES Final Resu lt documented in this encounter Visit Diagnoses Not on filedocumented in this encounter
--- OUTSIDE RECORDS SUMMARY | 2024-11-05 01:09 | XMS_ITS | Continuity of Care Document ---
Author Organization [facility] Address [address] [place] [address] [place] [address] Phone Care Team Providers Care Cigarette Inspector Name Role Phone Aleks Jeronimo Unavailable Unavailable Procedures Procedure Date Cataract Kit SEC MV Medical Tax Advance Directives Directive Yes / No Effective Date File Name No Information Encounters Encounter Description Practice Location Reason(s) For Visit Diagnoses Date Provider Providers Copied on Encounter [facility], [address] [place] [address] [address], [place], [place], [id number], [place] tel:[phone] SEC Katie [place] Katie No Information Phani Fink. [address] [place], [address], [place]. tel:[phone] Family History Family Member Type Diagnosis Age [...]
--- OUTSIDE RECORDS SUMMARY | 2024-11-05 01:09 | XMS_ITS | Encounter Summary ---
Author Organization [facility] Address [address] [place] [address] Care Team Providers Care Sales Agent Trading Stamps Name Role Phone Unavailable Primary Care Provider Unavailabl e Encounter Details Date Type Department Care Team ([facility] Contact Info) Description 10/31/2024 Orders Only [facility] Oncology and Hematology [facility] [address] [place] [address] Agusto Calvert MD [address] [place] [address] [employer] [address] [place] [phone] Social History Tobacco Use Types Packs/Day [...] 11/13/2024 4:35 PM CDT Telephone Check Up [facility] Oncology and Hematology [facility] [address] [place] [address] Agusto Calvert MD [address] [place], [place] [address] [address] [place] [phone] documented as of this encounter Procedures Procedure Name Priority Date/Time Associated Diagnosis Comments CBC WITH DIFFERENTIAL Routine 10/30/2024 4:35 PM CDT IRON, TIBC, AND PERCENT SATURATION Routine 10/30/2024 4:25 PM CDT COMPREHENSIVE METABOLIC PANEL Routine 10/30/2024 4:22 PM CDT documented in this encounter Results * CBC WITH DIFFERENTIAL (10/30/2024 4:35 PM CDT) Blood us Agusto Calvert MD HEMATOLOGY ORDERABLES Final Res ult * IRON, TIBC, AND PERCENT SATURATION (10/30/2024 4:25 PM CDT) Blood us Agusto Calvert MD CHEMISTRY ORDERABLES Final Resu lt * COMPREHENSIVE METABOLIC PANEL (10/30/2024 4:22 PM CDT) Blood us Agusto Calvert MD CHEMISTRY ORDERABLES Final Resu lt documented in this encounter Visit Diagnoses Not on filedocumented in this encounter
--- OUTSIDE RECORDS SUMMARY | 2024-11-05 01:09 | XMS_ITS | Clinical Summary ---
Author Organization [facility] Address [address] [place] [address] Care Team Providers Care Chicken Cutter Name Role Phone Unavailable Primary Care Provider Unavailabl e Allergies No known active allergies Medications tiotropium-olodat Vadim (STIOLTO RESPIMAT) 2.5-2.5 mcg/actuation metered inhaler Take 2 Puffs by inhalation daily. Active furosemide (LASIX) 40 mg tablet Take 40 mg by mouth 2 times daily. 5 Active apixaban (ELIQUIS) 5 mg tablet Take 5 mg by mouth 2 times daily. Active dilTIAZem (CARDIZEM CD, CARTIA XT) 240 mg Controlled Delivery 24 hour capsule Take 240 mg by mouth daily. 5 Active sertraline (ZOLOFT) 100 mg tablet Take 100 mg by mouth daily. 5 Active albuterol sulfate HFA 90 mcg/actuation aerosol inhaler Take 2 Puffs by inhalation every 4 hours as needed for Shortness of Breath or Wheezing. Active pravastatin (PRAVACHOL) 40 mg tablet Take 40 mg by mouth daily. 5 Active colestipoL (COLESTID) 1 gram tablet Take 1 Gram by mouth daily. 5 Active ipratropium-albut Vadim (DUONEB) 0.5 mg-3 mg(2.5 mg base)/3 mL Solution for Nebulization Take 3 mL by inhalation every 4 hours as needed for Shortness of Breath or Wheezing. Active ALPRAZolam (XANAX) 1 mg tablet Take 1 mg by mouth daily at bedtime. 5 Active Active Problems No known active problems Encounters Date Type Department Care Team Description 11/02/[address] [facility] - [place] [address] [place] [address] Agusto Calvert MD 10/31/[address] [facility] - [place] [address] [place] [address] Agusto Calvert MD 10/30/2024 3:00 PM CDT Office Visit [facility] - [place] [address] [place] [address] Agusto Calvert MD Chronic anemia (Primary Dx) from Last 3 Months Family History Medical History Relation Name Comments No Known Problems Child 1 No Known Problems Child 2 No Known Problems Child 3 Heart Disease Mother Relation Name Status Comments Child 1 Alive Child 2 Alive Child 3 Alive Father Mother Social History Tobacco Use Types Packs/Day Years Used Date Smoking Tobacco: Never Smokeless Tobacco: Never Alcohol Use Standard Drinks/Week Comments Never 0 (1 standard drink = 0.6 oz pur e alcohol) Comments Unknown Sex and Gender Information Value Date Recorded Sex Assigned at Not on file Legal Sex Female 11:16 AM CDT Gender Identity Not on file Sexual Orientation Not on file Last Filed Vital Signs Vital Sign Reading Time Taken Comments Blood Pressure 124/64 10/30/2024 2:59 PM CDT Pulse 76 10/30/2024 2:59 PM CDT Temperature 36.8 C (98.2 F) 10/30/2024 2:59 PM CDT Respiratory Rate 15 10/30/2024 2:59 PM CDT Oxygen Saturation 91% 10/30/2024 2:59 PM CDT Inhaled Oxygen Concentration - - Weight 74.2 kg (163 lb 9.6 oz) 10/30/2024 2:59 P M CDT Height 162.6 cm (5' 4) 10/30/2024 2:59 PM CDT Body Mass Index 28.08 10/30/2024 2:59 PM CDT Plan of Treatment Upcoming Encounters Date Type Department Care Team (Late st Contact Info) Description 11/13/2024 4:35 PM CDT Telephone Check Up [facility] - [place] [address] [place] [address] Agusto Calvert MD [address] [facility] [address] [place] [address] Health Maintenance Due Date Last Done Comments DTAP/TDAP/TD VACCINES (1 - Tdap) 10/26/1962 Traditional Medicare (ACO) Annual Wellness Visit 10/26 PNEUMOCOCCAL VACCINE 50+ YEARS (1 of 1 - PCV) 10/26/18 94 ZOSTER VACCINE (1 of 2) 10/26/1993 OSTEOPOROSIS SCREENING 10/26/2008 RSV VACCINE (60+ or ) (1 - 1-dose 75+ series) 10/26/2018 INFLUENZA VACCINE (#1) 2024 02/12/2021 Procedures Procedure Name Priority Date/Time Associated Diagnosis Comments CBC WITH DIFFERENTIAL Routine 10/30/2024 4:35 PM CDT IRON, TIBC, AND PERCENT SATURATION Routine 10/30/2024 4:25 PM CDT COMPREHENSIVE METABOLIC PANEL Routine 10/30/2024 4:22 PM CDT TRANSFERRIN RECEPTOR TFR SOLUBLE Routine 10/30/2024 11:22 AM CDT from Last 3 Months Results * CBC WITH DIFFERENTIAL (10/30/2024 4:35 PM CDT) Blood Agusto Calvert MD HEMATOLOGY ORDERABLES Final Res ult * IRON, TIBC, AND PERCENT SATURATION (10/30/2024 4:25 PM CDT) Blood us Agusto Calvert MD CHEMISTRY ORDERABLES Final Resu lt * COMPREHENSIVE METABOLIC PANEL (10/30/2024 4:22 PM CDT) Blood us Agusto Calvert MD CHEMISTRY ORDERABLES Final Resu lt * TRANSFERRIN RECEPTOR TFR SOLUBLE (10/30/2024 11:22 AM CDT) Blood us Agusto Calvert MD CHEMISTRY ORDERABLES Final Resu lt from Last 3 Months Insurance MEDICARE PART A AND B [employer] BLUE ACCESS/TRUE BLUE PPO
[2024-11-05 13:45] VITALS: BP 142/70; PULSE 102; TEMP 37.5; O2SAT 91
--- NOTE | 2024-11-05 14:22 | WPDHPUPDATE1 ---
History and Physical Update Update Date/Time: 11/05/24 14:22 History and Physical has been reviewed, including an updated exam of the patient. There are NO changes in the patient's condition. Risks, benefits, and alternatives have been discussed and questions answered. Patient agrees to proceed with procedure.
--- NOTE | 2024-11-05 14:23 | W.PM.PROC2 ---
Procedure Note - Detailed Date of Procedure 11/05/24 Pre-op Diagnosis spondylosis lumbosacral region Post-op Diagnosis Same Procedure Performed Diagnostic bilateral Lumbar Medial Branch/Dorsal Ramus Blocks at L3, L4, L5 Treating the bilateral L4-5, L5-S1 Facet Joints Under Fluoroscopic Guidance and with Contrast Control. (4 levels blocked). Surgeon Flo Multani MD Shipwright Helper None. Anesthesia Local Description of Procedure INFORMED CONSENT: Risks, benefits and alternatives to the procedure were discussed in detail with the patient who expressed explicit understanding and consent to proceed. Patient was informed verbally and in written form regarding the risks associated with the procedure including the low risk of serious infection, bleeding/bruising, allergic reaction, nerve or organ injury, paralysis, procedural site pain or discomfort, worsening pain and/or mobility, failure to treat and/or disfigurement. The patient expressed explicit understanding and consent to proceed. All materials required for the procedure were available prior to procedure start. Site and side were marked prior to procedure and confirmed in the presence of the patient. PROCEDURE IN DETAIL: The patient was brought to the procedural suite and placed in the prone position. Patient was made comfortable with use of pillows under the head/chest, hips and ankles. Skin overlying the injection site on the affected side(s) was prepared broadly with ChloraPrep applicator and draped in a sterile manner. Aseptic technique was used throughout. The endplates of the vertebral bodies at the site(s) of interest were aligned in the AP view. Ipsilateral oblique angulation was utilized to optimize visualization of the intersection between the superior articulating process and transverse process at each target site. Local anesthesia was established by infiltration with approximately 5 mL of 1% lidocaine via a 1-1/2 inch 27-gauge needle. A 25-gauge 5.0 inch Quincke spinal needle was advanced until the needle tip contacted periosteum at the target site, right L3. Lateral view was utilized to confirm the appropriate placement of the needle tip just anterior to the facet line and superior to the pedicle. In the Lateral view, 0.25 mL of Omnipaque 300 contrast medium was injected after negative aspiration for CSF, blood or other bodily fluid, showing appropriate extra-articular spread of contrast without evidence of intravascular, foraminal or intrathecal placement. A 0.5 mL solution of 0.5% PF bupivacaine was injected after negative repeat aspiration. Appropriate spread of the injectate was confirmed with washout of previously injected contrast. No parasthesias were elicited. Needle was removed completely intact without difficulty. The same exact procedure was repeated for all remaining levels on the ipsilateral side, right L4, L5 medial branches/dorsal ramus, modified as necessary to accommodate for the new target location with identical findings and results and no evidence of complication. The same exact procedure was repeated for all remaining levels on the contralateral side, left L3, L4, L5 medial branches/dorsal ramus, modified as necessary to accommodate for the new target location with identical findings and results and no evidence of complication. Images were saved and documented in the patient chart. Patient's skin was cleaned and sterile bandage applied. The patient tolerated the procedure well. The patient was transported to the recovery area in stable condition where they were observed for an appropriate amount of time prior to discharge, without evidence of complication. Patient was instructed on the appropriate completion of a pain diary over the next 12-24 hours. The patient was instructed to avoid excessive activity for the next 48 hours, including climbing and frequent use of stairs. Showers only for 48 hours. They were instructed not to drive or operate heavy machinery for 24 hours. They are to monitor for severe headaches, fevers, chills, night sweats, erythema/swelling at the site or any other signs of infection, bleeding/bruising, bowel or bladder changes as well as new pain, weakness or numbness in the upper or lower extremity. Should they notice these changes, they are instructed to call our office immediately or report directly to the nearest Emergency Department if no answer or if after posted office hours. COMPLICATIONS: None COMMENTS: None CONTRAST WASTED: 28.5mL Omnipaque 300. Complications No immediate complications Condition Stable Disposition Same day [facility] Billing Surgery - Charge Forward: Surgery Billing
[2024-11-05 14:44] VITALS: BP 173/77; PULSE 95; RESP 20; O2SAT 99
[2024-11-05] MEDS: LIDOCAINE 1% PF INJ 5 ML VIAL 2 ML INFILTRATE (14:46)
[2024-11-05 14:58] VITALS: BP 166/77; PULSE 95; O2SAT 98
[2024-11-05 15:00] VITALS: BP 157/73; PULSE 98; RESP 16; O2SAT 96
== END 2024-11-05 15:20 | disposition home or self-care (01) ==
PROVIDERS: PCP Internal Medicine; Visit Provider Anesthesiology Pain Medicine
PROC: (CPT 64493; principal; 2024-11-05 14:30)
DX: M47.817 Spondylosis without myelopathy or radiculopathy, lumbosacral region (principal); M46.1 Sacroiliitis, not elsewhere classified; G89.29 Other chronic pain
CPT/HCPCS: 64493; 64494 ×2; 64495 ×2; 99199; J2003; Q9965

== ENCOUNTER 2024-12-03 00:48 | Day surgery (SDC) | payer MEDICARE, BC, SELFPAY ==
--- OUTSIDE RECORDS SUMMARY | 2009-12-01 11:15 | XMS_ITS | Continuity of Care Document ---
Author Organization [facility] Address [address] [place] [address] [place] [address] Phone Care Team Providers Care Surveyor Helper Name Role Phone Aleks Jeronimo Unavailable Unavailable Procedures Procedure Date Cataract Kit SEC MV Medical Tax Advance Directives Directive Yes / No Effective Date File Name No Information Encounters Encounter Description Practice Location Reason(s) For Visit Diagnoses Date Provider Providers Copied on Encounter [facility], [address] [place] [address] [address], [place], [place], [id number], [place] tel:[phone] SEC Katie PA Katie No Information Phani Fink. [address] [place], [address], [place]. tel:[phone] Family History Family Member Type Diagnosis Age At Onset No Information Payers Payer name Insurance type Covered green party ID Authoriza tion(s) No Information Social [...]
[2024-11-27 15:00] VITALS: BMI 27.6
--- NOTE | 2024-11-27 15:21 | PC.NURSE ---
Addendum entered by Lexus Prince RN 11/27/24 15:26: INSTRUCTED DAUGHTER, PT TO HAVE BATH OR SHOWER NIGHT BEFORE AND MORNING OF SURGERY. SHE RELAYS UNDERSTANDING. Original Note: Report to the Outpatient Waiting Room, entrance under the green pavilion located off [facility], at time __12:30PM___ on date __12/03/24___. Planned Procedure Time: ___1:30PM___.? Time changes happen often and if your time is changed the preop area will call you the afternoon before. - You and your visitor will be asked to self-screen and do not enter if you have any COVID symptoms. Please call surgeon if you need to reschedule. - A mask is optional within the hospital at this time. MAY HAVE LIGHT BREAKFAST/LUNCH, NO EATING OR DRINKING AFTER 11:30AM PER DR STEWART. Take only the following medications with a SIP of water on the morning of surgery: ____MORNING MEDICATION DO NOT STOP ANY OF YOUR OTHER PRESCRIPTION MEDICATIONS PRIOR TO SURGERY EXCEPT THE FOLLOWING Medications to discontinue per physician ___HOLD ELIQUIS 3 DAYS PRE-PROCEDURE PER DR STEWART, PER DAUGHTER. Date to take last dose 11/29/24 Please no make-up, nail lebanese, hairspray, perfume, deodorant, or body powder the day of surgery.? No jewelry (including any body piercings) or valuables the day of surgery, leave them at home.? Please take a shower or bath the night before, or the morning of, surgery with an antibacterial soap.? Wear comfortable, loose fitting clothing.? - Jewelry must be removed prior to entering the operating room.? Rings and piercings that are not removed may be cut off. - The hospital will not accept responsibility for valuables.? - Please leave all valuables, including medications, at home the day of surgery. NO DRIVING FOR 24 HRS POST PROCEDURE Follow any additional instructions given to you from your surgeon. Telephone instructions given to ____DAUGHTERPURVI and asked if any additional questions and then verbalized understanding. Patient advised to call surgeon office or pre surgery nurse liaison [phone] if any additional questions.
--- NOTE | ~2024-12-03 | XR_ITS ---
XR fluoroscopy no charge Indication: Bilateral nerve block at L3, L4 and L5 TECHNIQUE: Fluoroscopy used during Bilateral nerve block at L3, L4 and L5 performed by [Flo Multani MD] on 12/03/2024. 46 seconds of fluoroscopy with 6 fluoroscopic images captured. FINDINGS: Correlate with procedure note. IMPRESSION: Fluoroscopy used during Bilateral nerve block at L3, L4 and L5. Reviewed, dictated and finalized at location O.
--- OUTSIDE RECORDS SUMMARY | 2024-12-03 00:50 | XMS_ITS ---
Author Name Auto Generated, Auto Generated Organization [facility] Address [address] [place] [address] Phone [phone] Care Team Providers Care Supervisor Screen Printing Name Role Phone Leeannejorge luismikaTanian Unavailable [phone] Gurpreet Perkins Unavailable [phone] Functional Status No Results Mental Status No [...] ral 1 Time Daily Indication: depression 2 [id number] TueMar 07 15:00:00 EST 2022Mar 16 01:00:00 [...] 2022 * End Date: * Text: * terminal operations supervisor (current) use of anticoagulants* Code: * Start Date: TueMar 07 00:00:00 2022 * End Date: * Text: * long-term (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
--- OUTSIDE RECORDS SUMMARY | 2024-12-03 00:50 | XMS_ITS ---
Author Name Auto Generated, Auto Generated Organization [email or web address] Address [address] [place] [address] Phone [phone] Care Team Providers Care Clinical Trials Manager Name Role Phone Leeannejorge luismikaTanian Unavailable [phone] Gurpreet Perkins Unavailable [phone] Functional Status No Results Mental Status No [...] ral 1 Time Daily Indication: depression 2 [id number] TueMar 07 15:00:00 EST 2022Mar 16 01:00:00 [...] 2022 * End Date: * Text: * emt intermediate (current) use of anticoagulants* Code: * Start Date: TueMar 07 00:00:00 2022 * End Date: * Text: * FPC (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
--- OUTSIDE RECORDS SUMMARY | 2024-12-03 00:51 | XMS_ITS | Clinical Summary ---
Author Organization [facility] Address [address] [place] [address] Care Team Providers Care Inside Outside Sales Representative Name Role Phone Unavailable Primary Care Provider [...] Encounters Date Type Department Care Team Description 11/28/2024 External Device Data STL ABSTRACTION Provider, Abstract 11/28/2024 Telephone [facility] Hematology - [place] [address] [place] [id number] Bela Rich, commercial crabber Problem 11/13/2024 4:35 PM CDT Telephone Check Up [facility] - [place] [address] [place] [address] Agusto Calvert MD Chronic anemia (Primary Dx); Iron deficiency anemia, unspecified iron deficiency anemia type 11/06/2024 External Device Data STL ABSTRACTION Provider, Abstract 11/06/2024 External Device Data STL ABSTRACTION Provider, Abstract 11/06/2024 External Device Data STL ABSTRACTION Provider, Abstract 11/06/2024 Orders Only [facility] Hematology - [place] [address] [place] [address] Agusto Calvert MD 11/02/2024 Orders Only [facility]ology - [place] [address] [place] [address] Agusto Calvert MD 10/31/2024 Orders Only [facility]ology - [place] [address] [place] [address] Agusto Calvert MD 10/30/2024 3:00 PM CDT Office Visit [facility] Hematology - [place] [address] [place] [address] Agusto Calvert MD Chronic anemia (Primary Dx) [...] Care Team (Late st Contact Info) Description 02/28/2025 2:45 PM 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 Office Visit [facility]ology - [place] [address] [place] [address] [address] [place] [address] Agusto Calvert MD [address] [facility] [address] [place] [address] Health Maintenance Due Date Last [...] METABOLIC PANEL Routine 10/30/2024 4:22 PM CDT METHYLMALONIC ACID Routine 10/30/2024 3: 58 PM CDT TRANSFERRIN RECEPTOR TFR SOLUBLE Routine 10/30/2024 11:22 AM CDT from Last 3 Months Results * CBC WITH DIFFERENTIAL (10/30/2024 4:35 PM CDT) Blood us Agusto Calvert MD HEMATOLOGY ORDERABLES Final Res ult * IRON, TIBC, AND PERCENT SATURATION (10/30/2024 4:25 PM CDT) Blood us Agusto Calvert MD CHEMISTRY ORDERABLES Final Resu lt * COMPREHENSIVE METABOLIC PANEL (10/30/2024 4:22 PM CDT) Blood Result [facility] Agusto Calvert MD CHEMISTRY ORDERABLES Final Resu lt * METHYLMALONIC ACID (10/30/2024 3:58 PM CDT) Blood Result [facility] Agusto Calvert MD CHEMISTRY ORDERABLES Final Resu lt * TRANSFERRIN RECEPTOR TFR SOLUBLE (10/30/2024 11:22 AM CDT) Blood Result [facility] Agusto Calvert MD CHEMISTRY ORDERABLES Final Resu lt from Last 3 Months Insurance MEDICARE PART A AND B BS BLUE ACCESS/TRUE BLUE PPO
[2024-12-03 13:00] VITALS: BP 117/58; PULSE 88; RESP 16; TEMP 36.8; O2SAT 95
--- NOTE | 2024-12-03 13:11 | WPDHPUPDATE1 ---
History and Physical Update Update Date/Time: 12/03/24 13:11 History and Physical has been reviewed, including an updated exam of the patient. There are NO changes in the patient's condition. Risks, benefits, and alternatives have been discussed and questions answered. Patient agrees to proceed with procedure.
--- NOTE | 2024-12-03 13:12 | P.OP_ITS ---
Procedure Note - Detailed Date of Procedure 12/03/24 Pre-op Diagnosis Spondylosis without myelopathy or radiculopathy, chronic low back pain Post-op Diagnosis Same Procedure Performed Diagnostic bilateral Lumbar Medial Branch/Dorsal Ramus Blocks at L3, L4, L5 Treating the bilateral L4-5, L5-S1 Facet Joints Under Fluoroscopic Guidance and with Contrast Control. (4 levels blocked). Surgeon Flo Multani MD Career Technology Teacher None. Anesthesia Local Description of Procedure INFORMED CONSENT: Risks, benefits and alternatives to the procedure were discussed in detail with the patient who expressed explicit understanding and consent to proceed. Patient was informed verbally and in written form regarding the risks associated with the procedure including the low risk of serious infection, bleeding/bruising, allergic reaction, nerve or organ injury, paralysis, procedural site pain or discomfort, worsening pain and/or mobility, failure to treat and/or disfigurement. The patient expressed explicit understanding and consent to proceed. All materials required for the procedure w ere available prior to procedure start. Site and side were marked prior to procedure and confirmed in the presence of the patient. PROCEDURE IN DETAIL: The patient was brought to the procedural suite and placed in the prone position. Patient was made comfortable with use of pillows under the head/chest, hips and ankles. Skin overlying the injection site on the affected side(s) was prepared broadly with ChloraPrep applicator and draped in a sterile manner. Aseptic technique was used throughout. The endplates of the vertebral bodies at the site(s) of interest were aligned in the AP view. Ipsilateral oblique angulation was utilized to optimize visualization of the intersection between the superior articulating process and transverse process at each target site. Local anesthesia was established by infiltration with approximately 5 mL of 1% lidocaine via a 1-1/2 inch 27-gauge needle. A 25-gauge 5.0 inch Quincke spinal needle was advanced until the needle tip contacted periosteum at the target site, right L3. Lateral view was utilized to confirm the appropriate placement of the needle tip just anterior to the facet line and superior to the pedicle. In the Lateral view, 0.25 mL of Omnipaque 300 contrast medium was injected after negative aspiration for CSF, blood or other bodily fluid, showing appropriate extra-articular spread of contrast without evidence of intravascular, foraminal or intrathecal placement. A 0.5 mL solution of 2.0% PF lidocaine was injected after negative repeat aspiration. Appropriate spread of the injectate was confirmed with washout of previously injected contrast. No parasthesias were elicited. Needle was removed completely intact without difficulty. The same exact procedure was repeated for all remaining levels on the ipsilat eral side, right L4, L5 medial branches/dorsal ramus, modified as necessary to accommodate for the new target location with identical findings and results and no evidence of complication. The same exact procedure was repeated for all remaining levels on the contralateral side, left L3, L4, L5 medial branches/dorsal ramus, modified as necessary to accommodate for the new target location with identical findings and results and no evidence of complication. Images were saved and documented in the patient chart. Patient's skin was cleaned and sterile bandage applied. The patient tolerated the procedure well. The patient was transported to the recovery area in stable condition where they were observed for an appropriate amount of time prior to discharge, without evidence of complication. Patient was instructed on the appropriate completion of a pain diary over the next 12-24 hours. The patient was instructed to avoid excessive activity for the next 48 hours, including climbing and frequent use of stairs. Showers only for 48 hours. They were instructed not to drive or operate heavy machinery for 24 hours. They are to monitor for severe headaches, fevers, chills, night sweats, erythema/swelling at the site or any other signs of infection, bleeding/bruising, bowel or bladder changes as well as new pain, weakness or numbness in the upper or lower extremity. Should they notice these changes, they are instructed to call our office immediately or report directly to the nearest Emergency Department if no answer or if after posted office hours. COMPLICATIONS: None COMMENTS: None CONTRAST WASTED: 28.5mL Omnipaque 300. Complications No immediate complications Condition Stable Disposition Same day [facility] Billing Surgery - Charge Forward: Surgery Billing
[2024-12-03 13:28] VITALS: BP 137/69; PULSE 100; RESP 20; O2SAT 98
[2024-12-03] MEDS: LIDOCAINE 2% PF LOCAL INJ 5 ML VIAL INFILTRATE (13:29)
[2024-12-03 13:45] VITALS: BP 133/70; PULSE 102; RESP 22; O2SAT 98
[2024-12-03 13:48] VITALS: BP 121/64; PULSE 91
== END 2024-12-03 14:10 | disposition home or self-care (01) ==
PROVIDERS: PCP Internal Medicine; Visit Provider Anesthesiology Pain Medicine
PROC: (CPT 64493; principal; 2024-12-03 13:30)
DX: M47.817 Spondylosis without myelopathy or radiculopathy, lumbosacral region (principal); M48.062 Spinal stenosis, lumbar region with neurogenic claudication; M46.1 Sacroiliitis, not elsewhere classified; G89.29 Other chronic pain; G89.18 Other acute postprocedural pain; E78.5 Hyperlipidemia, unspecified; I12.9 Hypertensive chronic kidney disease with stage 1 through stage 4 chronic kidney disease, or unspecified chronic kidney disease; N18.30 Chronic kidney disease, stage 3 unspecified; I48.0 Paroxysmal atrial fibrillation; F41.9 Anxiety disorder, unspecified; M18.0 Bilateral primary osteoarthritis of first carpometacarpal joints; G31.84 Mild cognitive impairment of uncertain or unknown etiology; Z79.01 Long term (current) use of anticoagulants; Z98.890 Other specified postprocedural states; Z98.1 Arthrodesis status; Z90.49 Acquired absence of other specified parts of digestive tract; Z95.5 Presence of coronary angioplasty implant and graft; Z87.891 Personal history of nicotine dependence; Z82.49 Family history of ischemic heart disease and other diseases of the circulatory system
CPT/HCPCS: 64493; 64494 ×2; 64495 ×2; 99199; J2003; Q9965

== ENCOUNTER 2024-12-26 11:56 | Outpatient (CLI) | payer MEDICARE, BC, SELFPAY ==
[2024-12-26 12:20] LABS: Hematocrit 42.8 % (37.0-47.0); Hemoglobin 12.7 g/dL (12.0-15.0)
[2024-12-26 12:47] LABS: Anion Gap 7 mmol/L (4-12); Blood Urea Nitrogen 18 mg/dL (7-17); Calcium 9.1 mg/dL (8.4-10.2); Carbon Dioxide 31 mmol/L (22-30); Chloride 102 mmol/L (98-107); Estimated Glomerular Filt Rate 54; Glucose 127 mg/dL (65-110); Potassium 4.0 mmol/L (3.4-5.0); Sodium 140 mmol/L (137-145)
== END 2024-12-26 11:57 | disposition home or self-care (01) ==
LOC: ANHSURGERY 11:58
PROVIDERS: Anesthesiology; PCP Internal Medicine; Visit Provider Anesthesiology Pain Medicine
DX: Z51.81 Encounter for therapeutic drug level monitoring (principal); D64.9 Anemia, unspecified
CPT/HCPCS: 36415; 80048; 85014; 85018; 99212; G0463

== ENCOUNTER 2025-01-01 01:03 | Day surgery (SDC) | payer MEDICARE, BC, SELFPAY ==
[2024-12-20 16:10] VITALS: BMI 28.5
--- NOTE | 2024-12-20 16:26 | PC.NURSE ---
Report to the Outpatient Waiting Room, entrance under the green pavilion located off [facility], at time __12:00PM___ on date ___01/01/25__. Planned Procedure Time: __2:00PM____.? Time changes happen often and if your time is changed the preop area will call you the afternoon before. - You and your visitor will be asked to self-screen and do not enter if you have any COVID symptoms. Please call surgeon if you need to reschedule. - A mask is optional within the hospital at this time. - No food OR DRINK from midnight until time of surgery and no smoking, or chewing tobacco (or any form of nicotine). No chewing gum, candy or mints. Take only the following medications with a SIP of water on the morning of surgery: __DILTIAZEM, SERTRALINE, AM INHALER MAY TAKE HYDROCODONE AND ALBUTEROL INHALER NEEDED DO NOT STOP ANY OF YOUR OTHER PRESCRIPTION MEDICATIONS PRIOR TO SURGERY EXCEPT THE FOLLOWING Hold all vitamins and supplements for 3 days per anesthesiologist.-LAST DOSE 12/28/24 Medications to discontinue per physician _HOLD ELIQUIS 3 DAYS PRE-OP PER DR STEWART Date to take last dose 12/28/24 Please no make-up, nail korean, hairspray, perfume, deodorant, or body powder the day of surgery.? No jewelry (including any body piercings) or valuables the day of surgery, leave them at home.? Please take a shower or bath the night before, or the morning of, surgery with an antibacterial soap.? Wear comfortable, loose fitting clothing.? - Jewelry must be removed prior to entering the operating room.? Rings and piercings that are not removed may be cut off. - The hospital will not accept responsibility for valuables.? - Please leave all valuables, including medications, at home the day of surgery. If you are going home after surgery, a licensed stock car driver must drive you home.? - NO public transportation without another adult if you receive anesthesia. - We recommend that an adult stay with you for 24 hours following discharge. - We also recommend that you do not drive, make important decision, drink alcoholic beverages, or take any drugs that were not prescribed by your health care provider for at least 24 hours after your discharge time. Follow any additional instructions given to you from your surgeon. Telephone instructions given to ___DAUGHTER, PURVI, and asked if any additional questions and then verbalized understanding. Patient advised to call surgeon office or pre surgery nurse liaison [phone] if any additional questions.
--- NOTE | ~2025-01-01 | XR_ITS ---
XR fluoroscopy no charge Indication:bilateral thermal radiofrequency ablation at L3-4, L4-5 and L5-S1 TECHNIQUE: Fluoroscopy used during bilateral thermal radiofrequency ablation at L3-4, L4-5 and L5-S1 performed by [Flo Multani MD] on 01/01/2025. 1 minute 37 seconds of fluoroscopy with 9 fluoroscopic images captured. FINDINGS: Correlate with procedure note. IMPRESSION: Fluoroscopy used during bilateral thermal radiofrequency ablation at L3-4, L4-5 and L5-S1. Reviewed, dictated and finalized at location O. IMPRESSION: Fluoroscopy used during bilateral thermal radiofrequency ablation a t L3-4, L4-5 and L5-S1.
--- OUTSIDE RECORDS SUMMARY | 2025-01-01 01:42 | XMS_ITS | Clinical Summary ---
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 Name Role Phone Unavailable Primary Care Provider [...] Encounters Date Type Department Care Team Description 12/18/2024 External Device Data ST[facility] ABSTRACTION Provider, Abstract 12/11/2024 External Device Data [facility] ABSTRACTION Provider, Abstract 11/28/2024 External Device Data [facility] ABSTRACTION Provider, Abstract 11/28/2024 Telephone [facility] - [place] [address] [place] [address] Bela Rich RN Medication Problem 11/13/2024 4:35 PM CDT Telephone Check Up [facility] - [place] [address] [place] [address] Agusto Calvert MD Chronic anemia (Primary Dx); Iron deficiency anemia, unspecified iron deficiency anemia type 11/06/2024 External Device Data [facility] ABSTRACTION Provider, Abstract 11/06/2024 External Device Data [facility] ABSTRACTION Provider, Abstract 11/06/2024 External Device Data ST[facility] ABSTRACTION Provider, Abstract 11/06/2024 Orders Only [facility] - [place] [address] [place] [address] Agusto Calvert MD 11/02/2024 Orders Only [facility] - [place] [address] [place] [address] Agusto Calvert MD 10/31/2024 Orders Only [facility] - [place] [address] [place] [address] Agusto Calvert MD 10/30/2024 3:00 PM CDT Office Visit [facility] - [place] [address] [place] [address] Agusto Calvert MD Chronic anemia (Primary Dx) [...] st Contact Info) Description 02/28/2025 2:45 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 Office Visit [facility] - [place] [address] [facility] [address] [place] [address] Agusto Calvert MD [address] [facility] [address] [place] [address] Health Maintenance Due Date Last Done Comments DTAP/TDAP/TD VACCINES (1 - Tdap) 10/26/1962 PNEUMOCOCCAL VACCINE 50+ YEARS (1 of 1 [...] METABOLIC PANEL (10/30/2024 4:22 PM CDT) Blood Agusto Calvert MD CHEMISTRY ORDERABLES Final Resu lt * METHYLMALONIC ACID (10/30/2024 3:58 PM CDT) Blood Result [facility] Agusto Calvert MD CHEMISTRY ORDERABLES Final Resu lt * TRANSFERRIN RECEPTOR TFR SOLUBLE (10/30/2024 11:22 AM CDT) Blood Agusto Calvert MD CHEMISTRY ORDERABLES Final Resu lt from Last 3 Months Insurance MEDICARE PART A AND B [employer] PPO
[2025-01-01 13:00] VITALS: BP 131/66; PULSE 80; RESP 16; TEMP 36.2; O2SAT 100
[2025-01-01] MEDS: LACTATED RINGERS 1,000 ML 30 ML IV CONT (13:15)
--- NOTE | 2025-01-01 14:07 | WPDANESEPPF ---
Anes - Initial Pre Proc Eval Procedure: Operation Date: 01/01/25 14:00 Proposed Procedures p Thermal Radiofrequency Ablation Bilateral L3, L4, L5 Medial Branches/Dorsal Rami Supplying Bilateral L4-5, L5-S1 Facet Joints Under Fluoroscopic Guidance - Flo Multani MD Date/Time: 01/01/25 14:07 Surgeon: Flo Multani MD Pre Op Diagnosis: spondylosis of lumbosacral region Patient Data Age: 79 Gender: F Height: 1.6 m Weight: 74.6 kg Last Vital Signs Temp 97.2 F L 01/01/25 13:00 Pulse 80 01/01/25 13:00 Resp 16 01/01/25 13:00 BP 131/66 01/01/25 13:00 Pulse Ox 100 01/01/25 13:00 O2 Del Method Room Air 01/01/25 13:00 Allergies Allergy/AdvReac Type Severity Reaction Status Date / Time Androgenic Anabolic Steroid AdvReac CONFUSION Verified 01/01/25 13:44 Home Medications ?Medication ?Instructions ?Recorded ?Confirmed ?Type apixaban 5 mg tablet (Eliquis) 5 mg PO BID 08/07/20 01/01/25 History diltiazem HCl 240 mg 240 mg PO DAILY 10/05/23 01/01/25 History capsule,extended release 24 hr albuterol sulfate 90 mcg/actuation 2 puff inhalation Q4H PRN 12/01/23 12/26/24 History aerosol inhaler Shortness Of Breath Or Wheezing colestipol 1 gram tablet 1 g PO BID 03/12/24 12/26/24 History ipratropium 0.5 mg-albuterol 3 mg 3 ml inhalation Q4H PRN shortness 06/29/24 12/26/24 Rx (2.5 mg base)/3 mL nebulization of breath or wheezing #180 mL soln tiotropium 2.5 mcg-olodaterol 2.5 See Rx Instructions .Route 10/22/24 12/26/24 Rx mcg/actuation mist for inhalation .COMPLEX #12 grams (Stiolto Respimat) pravastatin 40 mg tablet 40 mg PO DAILY 10/30/24 12/26/24 History alprazolam 1 mg tablet (Xanax) 1 mg PO QHS #90 tabs 11/27/24 12/26/24 Rx cyanocobalamin (vitamin B-12) 1,000 mcg PO DAILY 11/27/24 12/26/24 History 1,000 mcg capsule ferrous sulfate 325 mg (65 mg 65 mg PO EVERY OTHER DAY 11/27/24 12/26/24 History iron) tablet,delayed release potassium chloride 10 mEq 10 meq PO DAILY #90 caps 12/06/24 12/26/24 Rx capsule,extended release furosemide 40 mg tablet (Lasix) 100 mg PO DAILY 12/11/24 12/26/24 History acetaminophen 650 mg 1,300 mg PO Q8H PRN pain 12/20/24 12/26/24 History tablet,extended release (8 Hour Pain Reliever) hydrocodone 5 mg-acetaminophen 325 1 tablet PO Q6-8H PRN pain 12/20/24 12/26/24 History mg tablet sertraline 100 mg tablet 100 mg PO BID 12/20/24 01/01/25 History Patient hx anesthesia problems: pseudocholinesterase deficiency Family hx anesthesia problems: none Results Review: All pre-operative results and documents have been reviewed as part of the pre-operative evaluation. [facility] Past Medical History Medical History Minimal cognitive impairment Diarrhea Abdominal bloating Trochanteric fracture Chronic anticoagulation Chronic kidney disease, stage 3 Hyperlipidemia Hypertension Paroxysmal atrial fibrillation Compression fracture of body of thoracic vertebra Anxiety Surgical History Surgical History History of back surgery History of partial colectomy History of cardiac catheterization History of coronary artery stent placement History of hysterectomy History of cholecystectomy History of appendectomy History of tonsillectomy Family History Family History Father Patient's father is Family history of emphysema Mother Patient's mother is Family history of chronic obstructive pulmonary disease Other Heart disease Heart failure Social History Social History Smoking packs per day: 1.5 Smoking cigarettes per day: 30.0 Years smoked: 55 Smoking pack-years: 82.50 Smoking status: Former smoker Tobacco type: cigarettes Second hand tobacco smoke exposure: No Smoking end date: 01/09/23 Alcohol intake: never Drinks per week: 0 Substance use: never Substance use type: does not use Do You Feel Safe in your Home?: Yes Lack of Transportation: No Lack of Food: Never True Current Housing: I Have Housing Concerned About Future Housing: No Difficulty Paying Gas/Electric Bills: No Difficulty Paying for Meds: No Currently Unemployed: No Education: Decline to Answer Difficulty w/ Childcare or Family Care: No Living arrangements: assisted living Additional living arrangements comments: currently living at [facility] in [place] Occupation/Education: retired Spiritual care concerns: No Anes - Eval Final PreProcedure Day of Procedure 01/01/25 14:07 Patient weight: normal Lungs: normal air movement Airway: Mallampati scale class II and special considerations (Upper and lower partial, none loose. ) Neurological: alert and oriented Last oral intake: >/= 8 hours ASA classification: IV Emergent: no Anesthetic plan: proceed Anesthesia type and monitoring: general GIVS and standard monitoring Results Review: All pre-operative results and documents have been reviewed as part of the pre-operative evaluation. Hx of CHF/ afib, anticoag on hold, COPD on 3 L oxygen cont, CKD stage 3, ECHO LVEF 50%, mod . Pt has daughter w hx of pseudocholinesterase def. Informed Consent: The patient's anesthetic plan and its attendant risks and benefits were discussed with the patient/family/POA. Questions were solicited and answers provided to the satisfaction of the patient/family/POA.
--- NOTE | 2025-01-01 14:11 | WPDHPUPDATE1 ---
History and Physical Update Update Date/Time: 01/01/25 14:11 History and Physical has been reviewed, including an updated exam of the patient. There are NO changes in the patient's condition. Risks, benefits, and alternatives have been discussed and questions answered. Patient agrees to proceed with procedure.
--- NOTE | 2025-01-01 14:12 | P.OP_ITS ---
Procedure Note - Detailed Date of Procedure 01/01/25 Pre-op Diagnosis spondylosis of lumbosacral region, chronic low back pain Post-op Diagnosis Same Procedure Performed Thermal Radiofrequency Ablation of the bilateral Lumbar Medial Branches/Dorsal Ramus at the L3, L4, L5 Levels Treating the bilateral L4-5, L5-S1 Facet Joints Under Fluoroscopic Guidance (4 Levels Treated). Surgeon Flo Multani MD Human Machine Interface Engineer None. Anesthesia Local (w/ MAC) Description of Procedure INFORMED CONSENT: Risks, benefits and alternatives to the procedure were discussed in detail with the patient who expressed explicit understanding and consent to proceed. Patient was informed verbally and in written form regarding the risks associated with the procedure including the low risk of serious infection, bleeding/bruising, allergic reaction, nerve or organ injury, paralysis, procedural site pain or discomfort, worsening pain and/or mobility, failure to treat and/or disfigurement. The patient expressed explicit understanding and consent to proceed. All materials required for the procedure were available prior to procedure start. Site and side were marked prior to procedure and confirmed in the presence of the patient. PROCEDURE IN DETAIL: The patient was brought to the procedural suite and placed in the prone position. Patient was made comfortable with use of pillows under the head/chest, hips and ankles. ASA standard monitors were applied and used throughout the procedure. Skin overlying the injection site on the affected side(s) was prepared broadly with ChloraPrep applicator and draped in a sterile manner. Aseptic technique was used throughout. The endplates of the vertebral bodies at the site(s) of interest were aligned in the AP view. Ipsilateral oblique angulation was utilized to optimize visualization of the intersection between the superior articulating process and transverse process at each target site. Local anesthesia was established by infiltration with approximately 5 mL of 1% lidocaine via a 1-1/2 inch 27-gauge needle divided over each site treated. A 16-gauge 100mm Bounce Exchangeian RF needle with curved 10mm active tip was advanced in the AP view until the needle tip contacted the periosteum at the target site, the right L3 medial branch. Lateral view was utilized to adjust and confirm the appropriate placement of the needle tip just anterior to the facet line, superior to the pedicle and posterior to the foramen. Grounding electrode was in place and functioning. The appropriately-sized RF cannula was inserted into the RF needle and motor stimulation was performed with no subjective or objective evidence of recruited muscle activity with stimulation up to 2.0 volts at a frequency of 2Hz. 1.5 mL of 2.0% PF lidocaine was injected after negative aspiration. After a 90s pause, lesioning was performed to 90 degrees centigrade for 90s ensuring lack of symptoms in the extremity throughout. Needle was rotated 180 degrees and lesioning repeated in a similar manner. Patient tolerated this well. No paresthesias were elicited. Needle was removed completely intact without difficulty. The same procedure was repeated for all intended levels/ structures on the ipsilateral side, right L4, L5 medial branch/dorsal ramus with identical methodology, modified to compensate for new location, with similar results and no evidence of complication. The same exact procedure was repeated for all remaining levels on the cont ralateral side, left L3, L4, L5 medial branches/dorsal ramus, modified as necessary to accommodate for the new target location with identical findings/results and no evidence of complication. Images were saved and documented in the patient chart. Patient's skin was cleansed and sterile bandage applied. The patient tolerated the procedure well. The patient was transported to the recovery area in stable condition where they were observed for an appropriate amount of time prior to discharge, without evidence of complication. The patient was instructed to avoid excessive activity for the next 48 hours, including climbing and frequent use of stairs. Showers only for 48 hours. They were instructed not to drive or operate heavy machinery for 24 hours. They are to monitor for severe headaches, fevers, chills, night sweats, erythema/swelling at the site or any other signs of infection, bleeding/bruising, bowel or bladder changes as well as new pain, weakness or numbness in the upper or lower extremity. Should they notice these changes, they are instructed to call our office immediately or report directly to the nearest Emergency Department if no answer or if after posted office hours. COMPLICATIONS: None COMMENTS: None Complications No immediate complications Condition Stable Disposition PACU [facility] Billing Surgery - Charge Forward: Surgery Billing
[2025-01-01] MEDS: ceFAZolin 2 GM in SODIUM CHLORIDE 0.9% IV 50 ML 100 ML IVPB (15:26)
[2025-01-01] MEDS: LIDOCAINE 2% LOCAL INJ 20 ML VIAL 10 ML INFILTRATE (15:38)
[2025-01-01] MEDS: BUPivacaine HCL 0.5% 10 ML AMP INFILTRATE (15:39)
[2025-01-01 16:07] VITALS: BP 155/72; PULSE 75; RESP 15; O2SAT 96
[2025-01-01 16:30] VITALS: BP 146/66; PULSE 65; RESP 16; O2SAT 96
== END 2025-01-01 16:50 | disposition home or self-care (01) ==
PROVIDERS: PCP Internal Medicine; Visit Provider Anesthesiology Pain Medicine
PROC: (CPT 64635; principal; 2025-01-01 14:00)
DX: M47.817 Spondylosis without myelopathy or radiculopathy, lumbosacral region (principal); M48.062 Spinal stenosis, lumbar region with neurogenic claudication; M46.1 Sacroiliitis, not elsewhere classified; E78.5 Hyperlipidemia, unspecified; I48.0 Paroxysmal atrial fibrillation; J44.9 Chronic obstructive pulmonary disease, unspecified; F41.9 Anxiety disorder, unspecified; I12.9 Hypertensive chronic kidney disease with stage 1 through stage 4 chronic kidney disease, or unspecified chronic kidney disease; N18.30 Chronic kidney disease, stage 3 unspecified; I11.0 Hypertensive heart disease with heart failure; I50.9 Heart failure, unspecified; G89.29 Other chronic pain; M18.0 Bilateral primary osteoarthritis of first carpometacarpal joints; G89.18 Other acute postprocedural pain; G31.84 Mild cognitive impairment of uncertain or unknown etiology; M65.4 Radial styloid tenosynovitis [de Quervain]; Z79.01 Long term (current) use of anticoagulants; Z79.51 Long term (current) use of inhaled steroids; Z79.891 Long term (current) use of opiate analgesic; Z98.890 Other specified postprocedural states; Z98.1 Arthrodesis status; Z90.49 Acquired absence of other specified parts of digestive tract; Z95.5 Presence of coronary angioplasty implant and graft; Z99.81 Dependence on supplemental oxygen; Z87.891 Personal history of nicotine dependence; Z82.49 Family history of ischemic heart disease and other diseases of the circulatory system
CPT/HCPCS: 64635; 64636 ×6; 99199; J0690; J2003; J3010; J7120

== ENCOUNTER 2025-02-22 11:38 | Outpatient (CLI) | payer MEDICARE, BC, SELFPAY ==
--- OUTSIDE RECORDS SUMMARY | 2009-12-01 10:15 | XMS_ITS | Continuity of Care Document ---
Author Organization [facility] Address [address] [place] [address] [place] [address] Phone Care Team Providers Care Continuing Education Director Name Role Phone Aleks Jeronimo Unavailable Unavailable Procedures Procedure Date Cataract Kit SEC MV Medical Tax Advance Directives Directive Yes / No Effective Date File Name No Information Encounters Encounter Description Practice Location Reason(s) For Visit Diagnoses Date Provider Providers Copied on Encounter [facility], [address] [place] [address] [address], [place], [place], [id number], [place] tel:[phone] SEC Katie ID Katie No Information Phani Fink. [address] [place], [address], [place]. tel:[phone] Family History Family Member Type Diagnosis Age At Onset No Information Payers Payer name Insurance type Covered constitution party ID Authoriza tion(s) No Information Social History Type Description Quantity Date Captured Comments Sex Female Smoking Status No Information Chief Complaint And Reason For Visit No Information Reason For Referral Reason For Referral No Information History Of Present Illness Encounter Date Complaint History Of Prese nt Illness No Information Functional Status Date Functional Assessmen t No Information Instructions Date Instruction Additional Infor mation No Information Assessments Type Assessment Date No Information Patient Care Teams Name Effective Dates (start - stop) Status Members No Information
--- OUTSIDE RECORDS SUMMARY | 2009-12-01 10:15 | XMS_ITS | Continuity of Care Document ---
Author Organization [facility] Address [address] [place] [address] [place] [address] Phone Care Team Providers Care Wallpaper Inspector And Shipper Name Role Phone Aleks Jeronimo Unavailable Unavailable Procedures Procedure Date Cataract Kit SEC MV Medical Tax Advance Directives Directive Yes / No Effective Date File Name No Information Encounters Encounter Description Practice Location Reason(s) For Visit Diagnoses Date Provider Providers Copied on Encounter [facility], [address] [place] [address] [address], [place], [place], [id number], [place] tel:[phone] SEC Katie MD Katie No Information Phani Fink. [address] [place], [address], [place]. tel:[phone] Family History Family Member Type Diagnosis Age At Onset No Information Payers Payer name Insurance type Covered alliance party ID Authoriza tion(s) No Information Social [...]
--- OUTSIDE RECORDS SUMMARY | 2009-12-01 10:15 | XMS_ITS | Continuity of Care Document ---
Author Organization [facility] Address [address] [place] [address] [place] [address] Phone Care Team Providers Care Chemistry Associate Name Role Phone Aleks Jeronimo Unavailable Unavailable Procedures Procedure Date Cataract Kit SEC MV Medical Tax Advance Directives Directive Yes / No Effective Date File Name No Information Encounters Encounter Description Practice Location Reason(s) For Visit Diagnoses Date Provider Providers Copied on Encounter [facility], [address] [place] [address] [address], [place], [place], [id number], [place] tel:[phone] SEC Katie AK Katie No Information Phani Fink. [address] [place], [address], [place]. tel:[phone] Family History Family Member Type Diagnosis Age At Onset No Information Payers Payer name Insurance type Covered democrat ID Authoriza tion(s) No Information Social History [...]
[2025-02-22 12:50] LABS: Anion Gap 10 mmol/L (4-12); Blood Urea Nitrogen 14 mg/dL (7-17); Calcium 9.6 mg/dL (8.4-10.2); Carbon Dioxide 27 mmol/L (22-30); Chloride 101 mmol/L (98-107); Estimated Glomerular Filt Rate 56; Glucose 115 mg/dL (65-110); Potassium 4.0 mmol/L (3.4-5.0); Sodium 138 mmol/L (137-145)
--- OUTSIDE RECORDS SUMMARY | 2025-02-22 16:41 | XMS_ITS | Clinical Summary ---
Author Organization [facility] [place] Address 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 Name Role Phone Unavailable Primary Care Provider [...] Encounters Date Type Department Care Team Description 01/29/2025 External Device Data STL ABSTRACTION Provider, Abstract 01/15/2025 External Device Data [facility] ABSTRACTION Provider, Abstract 12/18/2024 External Device Data ST[facility] ABSTRACTION Provider, Abstract 12/11/2024 External Device Data ST[facility] ABSTRACTION Provider, Abstract 11/28/2024 External Device Data STL ABSTRACTION Provider, Abstract 11/28/2024 Telephone [facility] Oncology and Hematology - [place] [address] [place] [address] Bela Rich RN Medication Problem from Last 3 Months Family History Medical [...] Care Team (Late st Contact Info) Description 06/18/2025 2:30 PM CDT Office Visit [facility] Oncology and Hematology - [place] [address] [place] [address] Agusto Calvert MD [facility] [address] [place] [address] Health Maintenance Due Date Last Done Comments DTAP/TDAP/TD VACCINES (1 - Tdap) 10/26/1964 Traditional Medicare (ACO) Annual Wellness Visit 10/26 PNEUMOCOCCAL VACCINE 50+ YEARS (1 of 1 - PCV) 10/26/18 94 ZOSTER VACCINE (1 of 2) 10/26/1993 OSTEOPOROSIS SCREENING 10/26/2008 RSV VACCINE (60+ or ) (1 - 1-dose 75+ series) 10/26/2018 INFLUENZA VACCINE (#1) 2024 02/12/2021 Insurance MEDICARE PART A AND B [employer] ACCESS/TRUE [employer] PPO
== END 2025-02-22 11:39 | disposition home or self-care (01) ==
LOC: ANHLAB 11:42
PROVIDERS: PCP Internal Medicine; Visit Provider Nurse Practitioner Adult Health
DX: I50.32 Chronic diastolic (congestive) heart failure (principal)
CPT/HCPCS: 36415; 80048; 99212; G0463